=== PATIENT | female | born 1940 | race Caucasian/White ===

== ENCOUNTER → 2016-11-03 | Outpatient (CLI) | payer OTHER ==
[~2016-11-03] MED LIST: ALEN70TA2 PO; AMLO5TAB4 PO; ASPI325T4 PO; CALC-393 PO; CALC600T14 PO; CILO100T PO; CILO100T15 PO; DRGTP12 TD; FISHOIL PO; FURO40TA3 PO; HYDR25TA5 PO; LDDP5 TD; LPR25 PO; LPT40 PO; LSN40 PO; METO50TA17 PO; MULTTAB58 PO; NRV/10 PO; NTRGSL/4 UT; OMEGCAP2 PO; OPTIRAY 320 IV PRN; OXYC-57 PO; POTA-65 PO
--- NOTE | 2016-11-03 10:37 | DIAGNOSTIC IMAGING REPORT ---
ABDOMEN AND PELVIS CTA WITH IV CONTRAST CT DOSE: 312.34 mGy.cm HISTORY: Follow-up of abdominal aortic aneurysm. TECHNIQUE: Multiaxial CT images of the abdomen and pelvis were performed following the use of intravenous contrast. COMPARISON STUDY: Abdomen and pelvis CTA 08/28/2015. FINDINGS: There is again noted an infrarenal abdominal aortic aneurysm. This measures maximal diameter of 4.2 x 4.0 cm. This previous measured 4.0 x 4.0 cm. There is progressive mural thrombosis within the aneurysm sac with decrease in size in the contrast opacified lumen. The lumen currently measures 2.2 x 1.4 cm, previous measuring 2.4 x 2.0 cm. Mild narrowing of the proximal celiac and superior mesenteric arteries. The bilateral renal arteries are patent. The proximal inferior mesenteric artery is occluded. However, there is reconstitution of the inferior mesenteric artery due to collaterals. This remains unchanged. 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 There are evidence for common iliac artery stents. The right proximal superficial femoral artery remains occluded. Multifocal areas of moderate to severe stenosis within the bilateral external iliac arteries and bilateral common femoral arteries has progressed. There is also interval development of high-grade stenosis within the proximal left superficial femoral artery. Emphysema. No acute fractures within the visualized osseous structures. Small fat-containing right-sided Bochdalek hernia. There are 2 subcentimeter hypodense lesions within the right hepatic lobe which are too small to characterize but remain stable. These likely represent cysts. Punctate stone within the gallbladder. The pancreas, spleen, and adrenal glands are unremarkable. No renal stones or hydronephrosis. No retroperitoneal lymphadenopathy. The bladder is unremarkable. No bowel wall thickening or obstruction. IMPRESSION: 1. Slight increase in size in the 4.2 x 4.0 cm infrarenal abdominal aortic aneurysm. There is progressive thrombosis within the aneurysm sac with decrease in size of the contrast opacified lumen as described above. 2. The left common iliac artery aneurysm is not significantly changed. 3. Multifocal areas of moderate to severe stenosis within the bilateral external iliac arteries and bilateral common femoral arteries has progressed. There is also interval development of high-grade stenosis within the proximal left superficial femoral artery. The proximal right superficial femoral artery remains occluded. 4. Cholelithiasis. 5. Emphysema. Electronically signed by: Michael Murillo M.D. 11/03/2016 10:36 AM Dictated Date/Time: 11/03/2016 10:18 AM
== END | disposition home or self-care (01) ==
LOC: C.CTS 09:11
PROVIDERS: ATTEND Surgery
DX: I71.4 Abdominal aortic aneurysm, without rupture (principal); I72.3 Aneurysm of iliac artery; I77.1 Stricture of artery; I70.203 Unspecified atherosclerosis of native arteries of extremities, bilateral legs; K80.20 Calculus of gallbladder without cholecystitis without obstruction; J43.9 Emphysema, unspecified

== ENCOUNTER → 2017-02-02 | Outpatient (CLI) | payer OTHER ==
[~2017-02-02] MED LIST changes: -OPTIRAY 320 IV PRN
--- NOTE | 2017-02-02 13:56 | MAMMOGRAPHY REPORT ---
BILATERAL DIGITAL SCREENING MAMMOGRAM WITH CAD: 02/02/2017 CLINICAL HISTORY: Routine screening. Patient has no complaints. TECHNIQUE: Bilateral CC and MLO views were obtained. Current study was also evaluated with a Compute r Aided Detection (CAD) system. COMPARISON: Comparison is made to exams dated: 01/28/2016 mammogram, 01/22/2015 mammogram, 01/29/2014 ult rasound, 01/29/2014 mammogram, 01/18/2014 mammogram, and 01/16/2013 mammogram - [facility]. BREAST COMPOSITION: The tissue of both breasts is extremely dense, which lowers the sensitivity of m ammography. FINDINGS: The parenchymal pattern is similar to prior mammograms. There are moderate vascular calci fications in the breasts. A few scattered benign coarse calcifications. No developing mass, archite ctural distortion or cluster of suspicious microcalcifications is seen in either breast. IMPRESSION: ACR BI-RADS CATEGORY 2: BENIGN There is no mammographic evidence of malignancy. A 1 year screening mammogram is recommended. The pa tient will receive written notification of the results. Approximately 10% of breast cancers are not detected with mammography. A negative mammographic report should not delay biopsy if a clinically suggestive mass is present. Rashida Franks M.D. ay/:02/02/2017 09:14:32 Assistant News Director: Heather Evans, [facility] letter sent: Normal 1/2 BI-RADS Code: ACR BI-RADS Category 2: Benign
== END | disposition home or self-care (01) ==
LOC: C.MAMM 07:44
PROVIDERS: ATTEND Family Medicine
DX: Z12.31 Encounter for screening mammogram for malignant neoplasm of breast (principal)

== ENCOUNTER 2017-02-15 10:28 | Inpatient (IN) | payer OTHER ==
[~2017-02-15] VITALS: Ht 160 cm; Wt 60.8 kg
[~2017-02-15 10:28] MED LIST changes: -CALC-393 PO; -CILO100T PO; -DRGTP12 TD; -FURO40TA3 PO; -HYDR25TA5 PO; -LDDP5 TD; -LPT40 PO; -LSN40 PO; -METO50TA17 PO; -NRV/10 PO; -OMEGCAP2 PO; -OXYC-57 PO; -POTA-65 PO
[2017-02-15] MEDS ORDERED: HYDR25TA5 PO (11:05)
[2017-02-15] MEDS ORDERED: NRV/10 PO (11:05)
[2017-02-15] MEDS ORDERED: LSN40 PO (11:05)
[2017-02-15] MEDS ORDERED: METO50TA17 PO (11:05)
[2017-02-15] MEDS ORDERED: LPT40 PO (11:05)
[2017-02-15] MEDS ORDERED: OMEGCAP2 PO (11:06)
[2017-02-15] MEDS ORDERED: CALC-393 PO (11:06)
[2017-02-15] MEDS ORDERED: CILO100T PO (11:07)
--- NOTE | 2017-02-15 12:22 | EMERGENCY ROOM VISIT NOTE ---
History Report prepared by Yovany: Diego Batres Under the Supervision of: Dr. Sindy Mccain D.O. First contact with patient: 11:35 Chief Complaint: CARDIAC ASSESSMENT Stated Complaint: BACK PAIN, COULD NOT MOVE Nursing Triage Summary: Woke up this AM with chest pain that radiated to back. Had trouble moving this AM. Stent history. History of Present Illness The patient is a 76 year old female who presents to the Emergency Room with complaints of constant back pain and chest pain that started this morning which is worsened with movement. The patient states that the pain is in her middle back that goes through her body into her heart, and she is having some shortness of breath. The patient states that she felt fine last night, and she has never had a problem like this before or any back troubles. She has a history of a stent placement in the 90s, hypertension, and high cholesterol. She has not seen a bartender server recently, and has not had a recent stress test or echo done. The patient additionally states that she vomited twice this morning, and she was difficult to wake up this morning, per her family. Pt denies recent illness, dizziness, light headedness, numbness, tingling, abdominal pain, leg swelling, headache, change in vision, fevers, diarrhea, pain with urination, and melena. Denies any recent trauma, no change in activity, no heavy lifting, no recent illness. Denies change in meds. Denies any recent chest pain with exertion. Source of History: patient Onset: this morning Position: chest, back Timing: constant Modifying Factors (Worsening): movement Associated Symptoms: + SOB, + vomiting Review of Systems See HPI for pertinent positives & negatives. A total of 10 systems reviewed and were otherwise negative. Past Medical & Surgical Medical Problems: (1) AAA (abdominal aortic aneurysm) (2) CAD (coronary artery disease) (3) Carotid stenosis (4) HLD (hyperlipidemia) (5) HTN (hypertension) (6) PVD (peripheral vascular disease) Surgical Problems: (1) H/O colonoscopy (2) H/O tubal ligation (3) History of heart artery stent (4) Hx of endarterectomy (5) S/P appendectomy Family History Diabetes mellitus FH: heart disease Stroke Social History Smoking Status: Former Smoker Marital Status: Housing Status: lives with significant other Occupation Status: retired Current/Historical Medications Scheduled Alendronate Sodium (Fosamax), 70 MG PO QMON Amlodipine Besylate (Amlodipine Besylate), 10 MG PO DAILY Aspirin (Aspirin), 325 MG PO QAM Atorvastatin (Atorvastatin Calcium), 40 MG PO DAILY Calcium Carbonate (Calcium), 600 MG PO DAILY Cilostazol (Pletal), 100 MG PO BID Hydrochlorothiazide (Hydrochlorothiazide), 25 MG PO DAILY Lisinopril (Lisinopril), 40 MG PO DAILY Metoprolol Tartrate (Metoprolol Tartrate), 50 MG PO BID Multiple Vitamin (Multivitamin), 1 TAB PO QAM Nitroglycerin (Nitrostat), 0.4 MG UT PRN Cameron-3 Fatty Acids (Fish Oil), 1 CAP PO DAILY Allergies Coded Allergies: Antihistamines, Diphenhydramine-typ (Verified Adverse Reaction, Unknown, MAKES HEART RACE, 08/01/15) Physical Exam Vital Signs Date Time Temp Pulse Resp B/P (MAP) Pulse Ox O2 Delivery O2 Flow Rate FiO2 02/15/17 15:17 75 20 160/89 98 Nasal Cannula 3.0 02/15/17 13:41 77 18 143/77 95 Nasal Cannula 2.0 02/15/17 13:09 71 02/15/17 12:45 75 17 149/83 96 Nasal Cannula 2.0 02/15/17 11:35 82 17 142/89 95 Nasal Cannula 2.0 02/15/17 11:04 87 Room Air 02/15/17 11:04 87 Room Air 02/15/17 11:02 94 Nasal Cannula 2.0 02/15/17 10:59 86 02/15/17 10:30 36.5 82 20 148/75 93 Room Air Physical Exam GENERAL: alert, well appearing, well nourished, no distress, non-toxic EYE EXAM: normal conjunctiva, PERRL and EOM's grossly intact OROPHARYNX: no exudate, no erythema, lips, buccal mucosa, and tongue normal and mucous membranes are moist NECK: supple, no nuchal rigidity, no adenopathy, non-tender LUNGS: Clear to auscultation. Normal chest wall mechanics. The patient is on 3L of oxygen per minute on nasal cannula. When turned off, the patient's saturation went to 89% on room air, and the patient felt more short of breath. Lungs sounds diminished, no w/r/r. HEART: no murmurs, S1 normal and S2 normal, no JVD CHEST: Reproducible pain along the lower sternum. ABDOMEN: abdomen soft, non-tender, normo-active bowel sounds, no masses, no rebound or guarding. BACK: Back is symmetrical on inspection and there is no deformity, no midline tenderness, no CVA tenderness. SKIN: no rashes and no bruising UPPER EXTREMITIES: upper extremities are grossly normal. LOWER EXTREMITIES: No pitting edema to right, left AKA. No discoloration, normal cap refill. NEURO EXAM: Normal sensorium, cranial nerves II-XII grossly intact, normal speech, no gross weakness of arms, no gross weakness of legs. Gross sensation intact. Medical Decision & Procedures ER Provider Diagnostic Interpretation: Radiology results have been interpreted by the radiologist and reviewed by me. CT ANGIOGRAPHY OF THE CHEST, PULMONARY EMBOLUS PROTOCOL CLINICAL HISTORY: Chest and back pain. COMPARISON STUDY: Chest radiograph September 12, 2015. TECHNIQUE: Following IV administration of 91 mL of Optiray-320, helical axial images of the chest were obtained utilizing the pulmonary embolus protocol. Maximal intensity projections and sagittal and coronal reformats were viewed on an independent 3D workstation. IV contrast was administered without complication. A dose lowering technique was utilized adhering to the principles of ALARA. CT DOSE: 427.48 mGy.cm FINDINGS: No pulmonary emboli are identified. There is moderate cardiomegaly. There is no pericardial effusion. There is extensive atherosclerotic plaque of the aorta and visualized portions of the upper abdominal vessels. There is no thoracic aortic dissection. No enlarged thoracic nodes are present. Severe emphysema is noted. Note is made of a circumscribed 7 mm right upper lobe nodule shown on image 193 of 318. This may contain fat. Bilateral lower lobe airspace opacity is noted, right greater than left. There is no pneumothorax or pleural effusion. There is a mild T2 compression fracture and a severe T6 compression fracture. There is 5 mm of retropulsion at the T6 level which results in mild to moderate narrowing of the central canal. Visualized portions of the upper abdomen demonstrate trace left perinephric infiltration. IMPRESSION: 1. No pulmonary emboli identified. 2. Bilateral lower lobe airspace opacities, right greater than left. The appearance favors atelectasis although pneumonia could appear similar. 3. Severe emphysema. 4. Circumscribed 7 mm right upper lobe nodule. Possible fat within this lesion raising the possibility of a hamartoma. However, this nodule is indeterminate and a follow-up chest CT in 6 months is recommended to ensure stability. 5. Trace left perinephric infiltration. Correlation with urinalysis is recommended to exclude an infectious process. 6. Severe T6 compression fracture with 5 mm of retropulsion that results in mild to moderate narrowing of the central canal. Mild T8 compression fracture. These fractures are likely subacute to chronic. 7. Moderate cardiomegaly and extensive coronary artery calcification. Electronically signed by: Jimmie Perales M.D. 02/15/2017 3:00 PM Dictated Date/Time: 02/15/2017 2:42 PM Laboratory Results Test 02/15/17 10:55 02/15/17 15:15 Immature Granulocyte % (Auto) 0.7 % White Blood Count 22.53 K/uL (4.8-10.8) Red Blood Count 4.29 M/uL (4.2-5.4) Hemoglobin 13.9 g/dL (12.0-16.0) Hematocrit 36.7 % (37-47) Mean Corpuscular Volume 85.5 fL (80-100) Mean Corpuscular Hemoglobin 32.4 pg (25-34) Mean Corpuscular Hemoglobin Concent 37.9 g/dl (32-36) Platelet Count 260 K/uL (130-400) Mean Platelet Volume 9.9 fL (7.4-10.4) Neutrophils (%) (Auto) 91.3 % Lymphocytes (%) (Auto) 2.9 % Monocytes (%) (Auto) 5.0 % Eosinophils (%) (Auto) 0.0 % Basophils (%) (Auto) 0.1 % Neutrophils # (Auto) 20.57 K/uL (1.4-6.5) Lymphocytes # (Auto) 0.65 K/uL (1.2-3.4) Monocytes # (Auto) 1.13 K/uL (0.11-0.59) Eosinophils # (Auto) 0.00 K/uL (0-0.5) Basophils # (Auto) 0.03 K/uL (0-0.2) Immature Granulocyte # (Auto) 0.15 K/uL (0.00-0.02) Prothrombin Time 11.0 SECONDS (9.0-12.0) Prothromb Time International Ratio 1.0 (0.9-1.1) Osmolality 257 mOsm/kg (280-300) Magnesium Level 1.9 mg/dl (1.8-2.4) Total Bilirubin 0.6 mg/dl (0.2-1) Aspartate Amino Transf (AST/SGOT) 32 U/L (15-37) Alanine Aminotransferase (ALT/SGPT) 35 U/L (12-78) Alkaline Phosphatase 76 U/L (45-117) Pro-B-Type Natriuretic Peptide 210 pg/ml (0-900) Total Protein 8.5 gm/dl (6.4-8.2) Albumin 4.0 gm/dl (3.4-5.0) Globulin 4.5 gm/dl (2.5-4.0) Albumin/Globulin Ratio 0.9 (0.9-2) Urine Color YELLOW Urine Appearance CLEAR (CLEAR) Urine pH 6.0 (4.5-7.5) Urine Specific [place] 1.033 (1.000-1.030) Urine Protein 1+ (NEG) Urine Glucose (UA) 2+ (NEG) Urine Ketones 1+ (NEG) Urine Occult Blood TRACE (NEG) Urine Nitrite NEG (NEG) Urine Bilirubin NEG (NEG) Urine Urobilinogen NEG (NEG) Urine Leukocyte Esterase TRACE (NEG) Urine WBC (Auto) 1-5 /hpf (0-5) Urine RBC (Auto) 0-4 /hpf (0-4) Urine Hyaline Casts (Auto) 1-5 /lpf (0-5) Urine Epithelial Cells (Auto) 20-30 /lpf (0-5) Urine Bacteria (Auto) NEG (NEG) Laboratory results per my review. Medications Administered Medications (Trade) Dose Ordered Sig/Emely Route Start Time Stop Time Status Last Admin Dose Admin Fentanyl Citrate (Fentanyl Inj) 50 mcg NOW STAT IV 02/15/17 12:29 02/15/17 12:30 DC 02/15/17 12:44 50 MCG Sodium Chloride 1,000 ml @ 999 mls/hr Q1H1M STAT IV 02/15/17 13:28 02/15/17 14:28 DC 02/15/17 13:40 999 MLS/HR Fentanyl Citrate (Fentanyl Inj) 50 mcg NOW STAT IV 02/15/17 13:49 02/15/17 13:50 DC 02/15/17 14:14 50 MCG Aspirin/Aluminum/ Magnesium/Ca Carb (Ascriptin Tab) 325 mg NOW STAT PO 02/15/17 15:08 02/15/17 15:09 DC 02/15/17 15:53 325 MG Levofloxacin (Levaquin / D5W) 750 mg NOW ONCE IV 02/15/17 15:15 02/15/17 15:16 DC 02/15/17 15:52 750 MG Sodium Chloride 1,000 ml @ 999 mls/hr Q1H1M STAT IV 02/15/17 15:09 02/15/17 16:09 DC 02/15/17 15:53 999 MLS/HR Ondansetron HCl (Zofran Inj) 4 mg STK-MED ONCE .ROUTE 02/15/17 15:41 02/15/17 15:42 DC 02/15/17 15:53 4 MG Acetaminophen (Tylenol Tab) 650 mg Q4H PRN PO 02/15/17 16:00 03/17/17 15:59 02/15/17 21:03 650 MG ECG Indication: chest pain, back/shoulder pain Rate (beats per minute): 83 Rhythm: normal sinus Findings: PAC (occasional), no acute ischemic change, other (normal intervals) ED Course 1145: The patient was evaluated in room B3. A complete history and physical exam was performed. 1229: Fentanyl Inj 50mcg IV 1328: Sodium Chloride 1000 ml @ 999 mls/hr IV 1349: Fentanyl Inj 50mcg IV 1508: Aspirin Tab 325mg PO 1509: Sodium Chloride 1000 ml @ 999 mls/hr IV 1513: I reevaluated the patient, and she is now vomiting. She is agreeable to the treatment plan. I ordered Zofran 8mg IV 1515: Levofloxacin 750mg IV 1530: I reviewed the patient's case with Krystle Steen PA-C. She will evaluate the patient for further management. Medical Decision Differential diagnosis: Etiologies such as cardiac ischemia, aortic dissection, pulmonary embolism, pneumonia, pneumothorax, musculoskeletal, infections, pericarditis, myocarditis , esophageal rupture, gastrointestinal, as well as others were entertained. Pt found to have hypoxia on initial bedside exam despite no complaints of SOB or ALEXANDER during interview. Pain worse with movement, no hx of trauma or similar episode previously. Pt sent to CT to r/o PE and thoracic dissection given hypoxia, nature of pain, hx of smoking/PAD. Found to have pneumonia and compression fx which are not acute in thoracic spine, both of which may explain pain and the pneumonia would explain hypoxia and leukocytosis as well as family noticing increased fatigue this am. On repeat exam pt again denied noticing and recent cough or URI sx, but is a former smoker with significant pack year hx. No home oxygen or nebs, or chronic steroids. Blood cultures ordered after leukocytosis noted, UA/C&S was pending also. After CTA chest, levaquin ordered to cover for pneumonia. Pt with nausea/dry heaving following administration of pain meds, denied abdominal pain. No evidence of neoplastic process on CT and no other risk factors for legionella, however discussed this with admitting clinician given hyponatremia. No significant renal impairment, possible related to infectious etiology, however given hx additional etiologies will need to be excluded. EKG without acute changes, at this time I feel elevated troponin more likely due to infectious etiology, asa given as a precaution, and pt will need serial enzymes and possible cardiology evaluation depending on condition and labs. Pt with hx of CAD and stent, no more recent cards evaluation, at risk for ACS. Pt on asa and pletal due to hx of PVD/PAD. Doubt acute gi pathology given lack of other findings and reassuring labs, doubt atypical biliary colic. Medication Reconcilliation Current Medication List: was personally reviewed by me Blood Pressure Screening Patient's blood pressure: Elevated blood pressure Blood pressure disposition: Referred to PCP Consults Time Called: 1520 Consulting Physician: Krystle Steen PA-C Returned Call: 1530 I reviewed the patient's case with Krystle Steen PA-C. She will evaluate the patient for further management. Impression Primary Impression: Pneumonia Additional Impressions: Elevated troponin Substernal chest pain Hyponatremia HTN (hypertension) Back pain Scribe Attestation The scribe's documentation has been prepared under my direction and personally reviewed by me in its entirety. I confirm that the note above accurately reflects all work, treatment, procedures, and medical decision making performed by me. Departure Information Dispostion Being Evaluated By Hospitalist Arturo Hernandez M.D. (PCP) Patient Instructions My [facility] Problem Qualifiers Primary Impression: Pneumonia Pneumonia type: due to unspecified organism Laterality: bilateral Lung location: lower lobe of lung Qualified Codes: J18.9 - Pneumonia, unspecified organism Additional Impressions: HTN (hypertension) Hypertension type: essential hypertension Qualified Codes: I10 - Essential ( primary) hypertension Back pain Back pain location: thoracic back pain Chronicity: acute Back pain laterality: midline Qualified Codes: M54.6 - Pain in thoracic spine
[2017-02-15] MEDS ORDERED: FENTANYL CITRATE INJ 50 MCG/1 ML 2 ML VIAL IV STA ×2 (12:29→13:49)
[2017-02-15] MEDS ORDERED: OPTIRAY 320 IV PRN (12:45)
[2017-02-15 13:14] LABS: HEMATOCRIT 36.7 % (37-47); MEAN CELL VOLUME 85.5 fL (80-100); MEAN CORPUSCULAR HEMOGLOBIN 32.4 pg (25-34); MEAN CORPUSCULAR HGB CONC 37.9 g/dl (32-36); MEAN PLATELET VOLUME 9.9 fL (7.4-10.4); PLATELET COUNT 260 K/uL (130-400); RED BLOOD COUNT 4.29 M/uL (4.2-5.4); WHITE BLOOD COUNT 22.53 K/uL (4.8-10.8)
[2017-02-15 13:22] LABS: BUN/CREATININE RATIO 15.6 (10-20); CALCIUM 8.4 mg/dl (8.5-10.1); CREATININE 0.62 mg/dl (0.60-1.20); POTASSIUM 3.2 mmol/L (3.5-5.1)
[2017-02-15] MEDS ORDERED: SODIUM CHLORIDE 0.9% 1000ML 1,000 ML IV STA ×2 (13:28→15:09)
[2017-02-15 13:37] LABS: ALB/GLOB RATIO 0.9 (0.9-2)
[2017-02-15 13:59] LABS: BASO % 0.1 %; BASO ABS # 0.03 K/uL (0-0.2); COMPLETE YES; IG% 0.7 %; LYMPH % 2.9 %; LYMPH ABS # 0.65 K/uL (1.2-3.4); NEUT % 91.3 %
--- NOTE | 2017-02-15 15:01 | DIAGNOSTIC IMAGING REPORT ---
CT ANGIOGRAPHY OF THE CHEST, PULMONARY EMBOLUS PROTOCOL CLINICAL HISTORY: Chest and back pain. COMPARISON STUDY: Chest radiograph September 12, 2015. TECHNIQUE: Following IV administration of 91 mL of Optiray-320, helical axial images of the chest were obtained utilizing the pulmonary embolus protocol. Maximal intensity projections and sagittal and coronal reformats were viewed on an independent 3D workstation. IV contrast was administered without complication. A dose lowering technique was utilized adhering to the principles of ALARA. CT DOSE: 427.48 mGy.cm FINDINGS: No pulmonary emboli are identified. There is moderate cardiomegaly. There is no pericardial effusion. There is extensive atherosclerotic plaque of the aorta and visualized portions of the upper abdominal vessels. There is no thoracic aortic dissection. No enlarged thoracic nodes are present. Severe emphysema is noted. Note is made of a circumscribed 7 mm right upper lobe nodule shown on image 193 of 318. This may contain fat. Bilateral lower lobe airspace opacity is noted, right greater than left. There is no pneumothorax or pleural effusion. There is a mild T2 compression fracture and a severe T6 compression fracture. There is 5 mm of retropulsion at the T6 level which results in mild to moderate narrowing of the central canal. Visualized portions of the upper abdomen demonstrate trace left perinephric infiltration. IMPRESSION: 1. No pulmonary emboli identified. 2. Bilateral lower lobe airspace opacities, right greater than left. The appearance favors atelectasis although pneumonia could appear similar. 3. Severe emphysema. 4. Circumscribed 7 mm right upper lobe nodule. Possible fat within this lesion raising the possibility of a hamartoma. However, this nodule is indeterminate and a follow-up chest CT in 6 months is recommended to ensure stability. 5. Trace left perinephric infiltration. Correlation with urinalysis is recommended to exclude an infectious process. 6. Severe T6 compression fracture with 5 mm of retropulsion that results in mild to moderate narrowing of the central canal. Mild T8 compression fracture. These fractures are likely subacute to chronic. 7. Moderate cardiomegaly and extensive coronary artery calcification. Electronically signed by: Jimmie Perales M.D. 02/15/2017 3:00 PM Dictated Date/Time: 02/15/2017 2:42 PM
[2017-02-15] MEDS ORDERED: ASPIRIN/ALUM/MAGNES/CAL CARB 325 MG TAB PO STA (15:08)
[2017-02-15] MEDS ORDERED: ONDANSETRON 8 MG/54 ML D5W IV STA (15:13)
[2017-02-15] MEDS ORDERED: LEVAQUIN 750MG / 150ML D5W IV ONE (15:15)
[2017-02-15] MEDS ORDERED: ONDANSETRON INJ 2 MG/ML 2 ML VIAL ONE (15:41)
[2017-02-15] MEDS ORDERED: POTASSIUM CHLR IV STA (15:43)
[2017-02-15] MEDS ORDERED: PREMIXED WATER IV STA (15:43)
[2017-02-15] MEDS ORDERED: WTR IV STA (15:43)
[2017-02-15 15:51] LABS: URINE APPEARANCE CLEAR (CLEAR); URINE BILIRUBIN NEG (NEG); URINE COLOR YELLOW; URINE EPITHELIAL CELL AUTO 20-30 /lpf (0-5); URINE NITRITE NEG (NEG); URINE SPECIFIC GRAVITY 1.033 (1.000-1.030); UROBILINOGEN NEG (NEG); ZZUR CULT IF INDIC CLEAN CATCH NO
[2017-02-15 15:53] LABS: MANUAL MICROSCOPIC REQUIRED? NO; REVIEW REQ? NO
[2017-02-15] MEDS ORDERED: NITROGLYCERIN 0.4 MG SL PER TAB CHARGE SL PRN (16:00)
[2017-02-15] MEDS ORDERED: ALUMINUM/MAGNESIUM/SIMETH (MAALOX MAX) 30 ML UDC PO PRN (16:00)
[2017-02-15] MEDS ORDERED: POLYETHYLENE (MIRALAX) 17 GM PACK PO PRN (16:00)
[2017-02-15] MEDS ORDERED: MAGNESIUM HYDROXIDE SUSP 30 ML UDC PO PRN (16:00)
[2017-02-15 16:26] VITALS: Ht 160 cm; Wt 60.8 kg
--- NOTE | 2017-02-15 17:03 | History and Physical ---
History & Physical Date & Time of Service: Feb 15, 2017 at 17:03 Chief Complaint: Back Pain, Could Not Move Primary Care Physician: Arturo Bermudez M.D. History of Present Illness Source: patient, family This is a 76yo female with a PMH of CAD (s/p stent in ), HTN, HLD, AAA ( without rupture), carotid stenosis, PVD (s/p L AKA in 09/10) and osteoporosis who presents with back and chest pain since this morning. Patient was in a normal state of health until waking up this morning with 8/10 constant mid-back pain that she describes as heavy and made worse with movement. Denies any associated paresthesias or weakness of LE. Has not had back pain in the past. Describes mid-sternal chest pain as dull, constant and non-radiating. States that it is a 6/10 in severity. Has a remote history of chest pain but has not experienced pain similar to this since a stent was placed in the . States that she used to see a leather goods maker for management of CAD, HTN, HLD and AAA but they have since moved and she has not been regularly seeing anyone. Does not remember a recent stress test or echo. Along with back pain and chest pain today, patient also endorses two episodes of vomiting and feeling confused. Family agrees that patient is not mentating at baseline, having difficulty remembering details of events leading up to hospitalization today. Denies fever, chills, headache, vision changes, dyspnea, SOB, nausea, abdominal pain, dysuria, diarrhea, MSK pain, swelling or weakness in extremities. Past Medical/Surgical History Medical Problems: (1) AAA (abdominal aortic aneurysm) Status: Chronic (2) Carotid stenosis Status: Chronic (3) Chronic ischemic heart disease Status: Chronic (4) HLD (hyperlipidemia) Status: Chronic (5) HTN (hypertension) Status: Chronic (6) LLE stent Status: Chronic Surgical Problems: (1) H/O colonoscopy Permanent Comment: adenomatous & TVA polyps, diverticulosis, repeat 3 yrs 2014 Status: Chronic (2) H/O tubal ligation Status: Chronic (3) History of heart artery stent Permanent Comment: 1997 Status: Chronic (4) S/P appendectomy Status: Chronic Family History Diabetes mellitus FH: heart disease Stroke Social History Smoking Status: Former Smoker Marital Status: Occupational Status: retired Multi-Drug Resistant Organisms History of MDRO: No Allergies Coded Allergies: Antihistamines, Diphenhydramine-typ (Verified Adverse Reaction, Unknown, MAKES HEART RACE, 08/01/15) Home Medications Scheduled Alendronate Sodium (Fosamax), 70 MG PO QMON Amlodipine Besylate (Amlodipine Besylate), 10 MG PO DAILY Aspirin (Aspirin), 325 MG PO QAM Atorvastatin (Atorvastatin Calcium), 40 MG PO DAILY Calcium Carbonate (Calcium), 600 MG PO DAILY Cilostazol (Pletal), 100 MG PO BID Hydrochlorothiazide (Hydrochlorothiazide), 25 MG PO DAILY Lisinopril (Lisinopril), 40 MG PO DAILY Metoprolol Tartrate (Metoprolol Tartrate), 50 MG PO BID Multiple Vitamin (Multivitamin), 1 TAB PO QAM Nitroglycerin (Nitrostat), 0.4 MG UT PRN [place]-3 Fatty Acids (Fish Oil), 1 CAP PO DAILY Review of Systems Ten systems reviewed and negative except as noted in the HPI. Physical Exam Vital Signs Date Time Temp Pulse Resp B/P (MAP) Pulse Ox O2 Delivery O2 Flow Rate FiO2 02/15/17 16:26 Room Air 02/15/17 15:17 75 20 160/89 98 Nasal Cannula 3.0 02/15/17 13:41 77 18 143/77 95 Nasal Cannula 2.0 02/15/17 13:09 71 02/15/17 12:45 75 17 149/83 96 Nasal Cannula 2.0 02/15/17 11:35 82 17 142/89 95 Nasal Cannula 2.0 02/15/17 11:04 87 Room Air 02/15/17 11:04 87 Room Air 02/15/17 11:02 94 Nasal Cannula 2.0 02/15/17 10:59 86 02/15/17 10:30 36.5 82 20 148/75 93 Room Air General Appearance: + mild distress Head: normocephalic, atraumatic Eyes: normal inspection, PERRL, sclerae normal ENT: hearing grossly normal Respiratory/Chest: chest non-tender, no respiratory distress, no accessory muscle use, + decreased breath sounds (2/2 reduced inspiratory effort ) Cardiovascular: regular rate, rhythm, no JVD, no murmur, + abnormal peripheral pulses (diminished R pedal pulse ) Abdomen/GI: normal bowel sounds, non tender, soft, no organomegaly Back: normal inspection, + pertinent finding (TTP of thoracic spine. Reduced ROM 2/2 pain) Extremities/Musculoskelatal: normal inspection (AKA of L leg ), no calf tenderness, normal capillary refill, no pedal edema Neurologic/Psych: no motor/sensory deficits, alert (oriented to person, place and situation. Not oriented to time.), normal mood/affect Skin: normal color, warm/dry, no rash Diagnostics Laboratory Results Results Past 24 Hours Test 02/15/17 10:55 02/15/17 15:15 02/15/17 15:39 Range/Units White Blood Count 22.53 4.8-10.8 K/uL Red Blood Count 4.29 4.2-5.4 M/uL Hemoglobin 13.9 12.0-16.0 g/dL Hematocrit 36.7 37-47 % Mean Corpuscular Volume 85.5 80-100 fL Mean Corpuscular Hemoglobin 32.4 25-34 pg Mean Corpuscular Hemoglobin Concent 37.9 32-36 g/dl Platelet Count 260 130-400 K/uL Mean Platelet Volume 9.9 7.4-10.4 fL Neutrophils (%) (Auto) 91.3 % Lymphocytes (%) (Auto) 2.9 % Monocytes (%) (Auto) 5.0 % Eosinophils (%) (Auto) 0.0 % Basophils (%) (Auto) 0.1 % Neutrophils # (Auto) 20.57 1.4-6.5 K/uL Lymphocytes # (Auto) 0.65 1.2-3.4 K/uL Monocytes # (Auto) 1.13 0.11-0.59 K/uL Eosinophils # (Auto) 0.00 0-0.5 K/uL Basophils # (Auto) 0.03 0-0.2 K/uL RDW Standard Deviation 38.6 36.4-46.3 fL RDW Coefficient of Variation 12.5 11.5-14.5 % Immature Granulocyte % (Auto) 0.7 % Immature Granulocyte # (Auto) 0.15 0.00-0.02 K/uL Prothrombin Time 11.0 9.0-12.0 SECONDS Prothromb Time International Ratio 1.0 0.9-1.1 Sodium Level 122 136-145 mmol/L Potassium Level 3.2 3.5-5.1 mmol/L Chloride Level 89 98-107 mmol/L Carbon Dioxide Level 22 21-32 mmol/L Anion Gap 11.0 3-11 mmol/L Blood Urea Nitrogen 10 7-18 mg/dl Creatinine 0.62 0.60-1.20 mg/dl Est Creatinine Clear Calc Drug Dose 64.8 ml/min Estimated GFR () 102.2 Estimated GFR (Non- 88.2 BUN/Creatinine Ratio 15.6 10-20 Random Glucose 183 70-99 mg/dl Osmolality 257 280-300 mOsm/kg Calcium Level 8.4 8.5-10.1 mg/dl Magnesium Level 1.9 1.8-2.4 mg/dl Total Bilirubin 0.6 0.2-1 mg/dl Aspartate Amino Transf (AST/SGOT) 32 15-37 U/L Alanine Aminotransferase (ALT/SGPT) 35 12-78 U/L Alkaline Phosphatase 76 45-117 U/L Troponin I 0.146 0-0.045 ng/ml Pro-B-Type Natriuretic Peptide 210 0-900 pg/ml Total Protein 8.5 6.4-8.2 gm/dl Albumin 4.0 3.4-5.0 gm/dl Globulin 4.5 2.5-4.0 gm/dl Albumin/Globulin Ratio 0.9 0.9-2 Urine Color YELLOW Urine Appearance CLEAR CLEAR Urine pH 6.0 4.5-7.5 Urine Specific [place] 1.033 1.000-1.030 Urine Protein 1+ NEG Urine Glucose (UA) 2+ NEG Urine Ketones 1+ NEG Urine Occult Blood TRACE NEG Urine Nitrite NEG NEG Urine Bilirubin NEG NEG Urine Urobilinogen NEG NEG Urine Leukocyte Esterase TRACE NEG Urine WBC (Auto) 1-5 0-5 /hpf Urine RBC (Auto) 0-4 0-4 /hpf Urine Hyaline Casts (Auto) 1-5 0-5 /lpf Urine Epithelial Cells (Auto) 20-30 0-5 /lpf Urine Bacteria (Auto) NEG NEG Microbiology Results 02/15/17 Blood Culture, Received Pending 02/15/17 Blood Culture, Received Pending Diagnostic Radiology CT Chest/Thorax: IMPRESSION: 1. No pulmonary emboli identified. 2. Bilateral lower lobe airspace opacities, right greater than left. The appearance favors atelectasis although pneumonia could appear similar. 3. Severe emphysema. 4. Circumscribed 7 mm right upper lobe nodule. Possible fat within this lesion raising the possibility of a hamartoma. However, this nodule is indeterminate and a follow-up chest CT in 6 months is recommended to ensure stability. 5. Trace left perinephric infiltration. Correlation with urinalysis is recommended to exclude an infectious process. 6. Severe T6 compression fracture with 5 mm of retropulsion that results in mild to moderate narrowing of the central canal. Mild T8 compression fracture. These fractures are likely subacute to chronic. 7. Moderate cardiomegaly and extensive coronary artery calcification. EKG Sinus rhythm with Premature supraventricular complexes Nonspecific ST and T wave abnormality Impression Assessment and Plan This is a 76yo female with a PMH of CAD (s/p stent in ), HTN, HLD, AAA ( without rupture), carotid stenosis, PVD (s/p L AKA in 09/10) and osteoporosis who presents with back and chest pain since this morning. PNA: -Chest thorax CTA with bilateral lower lobe airspace opacities, right greater than left. The appearance favors atelectasis although pneumonia could appear similar -No pulmonary emboli identified -Leukocytosis of 22.53 -Endorses CP. Denies SOB, fever, chills -Not on home O2, but became hypoxic at 87% on room air. Satting 98% on 3L NC -Started on Levoquin Back pain: -No history of back pain -Chest thorax CTA with sub-acute to chronic compression fractures: -Severe T6 compression fracture with retropulsion that results in mild to mod narrowing of the central canal -Mild T8 compression fracture. -History of osteoporosis. On alendronate, calcium -Lidoderm patch for pain control Chest pain: -Constant dull mid-sternal pain since AM -CAD with stent placed in . Does not follow regularly with leather goods maker -R/o ACS; risk factors include HTN, HLD, former smoker, sedentary -EKG- Sinus rhythm with PVCs. Non-specific ST and T wave abnormalities. Unchanged since previous EKG. -Initial troponin elevated to 0.146 -Trend serial cardiac enzymes -Given ASA in ED -Ordered echo -Repeat EKG in AM Metabolic encephalopathy: -Per patient and family, patient has been confused since this AM -Is oriented to person and place but not time -Likely due to hyponatremia and infection -No neuro deficits on exam -Will continue monitoring Hypotonic hyponatremia: -Confusion, nausea & vomiting -Na of 122 on admission -Serum osm low at 267 -Urine osm pending -Repeat NA pending -Held HCTZ Electrolyte abnormalities: -K of 2.2 -Replaced K and Mg -Will continue monitoring HTN: -Stable -Continue metoprolol and lisinopril -Held HCTZ in setting of hyponatremia HLD: -Continue atorvastatin PVD (s/p L AKA in 09/10): -Follows with Dr. Alexandre with vascular surgery -Continue Pletal BID -Denies intermittent claudication but also does not ambulate with prosthetic. Uses wheelchair Carotid stenosis: -Stable -Continue following with PCP and out-pt cardio DVT Ppx: Heparin SQ Code status: FULL PCP: Lara Dispo: Discharge planning ordered ADDENDUM: Saw/examined the patient in room 229-2 Patient states she woke up with severe back pain Presented to the ER; found to have leukocytosis, elevated troponin level, hyponatremia - likely secondary to pneumonia Plan is to give Levaquin for the pneumonia Was given 2L fluid bolus in the ER; check urine, serum Osm, and urine Na repeat Na monitor in tele trend cardiac enzymes, check echo replace K, check Mg For back pain, add Lidoderm patch due to compression fracture, may need ortho input once more medically stable Level of Care Telemetry Advanced Directives Existing Living Will: No Existing Power of Envelope Cutter: No Resuscitation Status FULL RESUSCITATION VTE Prophylaxis VTE Risk Assessment Done? Y/N: Yes Risk Level: Moderate Given or contraindicated: Unfractionated heparin SQ
[2017-02-15 18:36] VITALS: BP 149/74; PULSE 84; TEMP 36.9; O2SAT 90
[2017-02-15 19:10] VITALS: BP 152/75; PULSE 82; TEMP 36.8; O2SAT 92
[2017-02-15 19:28] LABS: BUN/CREATININE RATIO 11.9 (10-20); CALCIUM 8.3 mg/dl (8.5-10.1); CREATININE 0.48 mg/dl (0.60-1.20); POTASSIUM 3.3 mmol/L (3.5-5.1)
[2017-02-15] MEDS: POTASSIUM CHLR 10MEQ / WTR IV SCH ×3 (19:43→22:12)
[2017-02-15 19:50] LABS: HEMATOCRIT 36.4 % (37-47); MEAN CELL VOLUME 84.7 fL (80-100); MEAN CORPUSCULAR HEMOGLOBIN 31.9 pg (25-34); MEAN CORPUSCULAR HGB CONC 37.6 g/dl (32-36); MEAN PLATELET VOLUME 9.1 fL (7.4-10.4); PLATELET COUNT 241 K/uL (130-400); WHITE BLOOD COUNT 15.39 K/uL (4.8-10.8)
[2017-02-15] MEDS: LIDODERM (LIDOCAINE) PATCH 5% TD SCH (19:58)
[2017-02-15 20:00] VITALS: O2SAT 92
[2017-02-15] MEDS: ACETAMINOPHEN 325 MG TAB PO PRN (21:03)
[2017-02-15] MEDS ORDERED: NSS + 20MEQ KCL 1000ML 1,000 ML IV ONE (21:15)
[2017-02-15] MEDS: METOPROLOL TARTRATE 50 MG TAB PO SCH (21:26)
[2017-02-15] MEDS: CILOSTAZOL 100 MG TAB PO SCH (21:26)
[2017-02-15] MEDS: HEPARIN SOD 5000 UNIT/0.5 ML CARP SQ SCH (21:32)
[2017-02-15 22:50] LABS: CKMB/CK RATIO 1.6 (0-3.0)
[2017-02-16] VITALS (7 sets, daily range): BP systolic 124–158; BP diastolic 63–79; PULSE 72–86; TEMP 36.6–37; O2SAT 92–97
[2017-02-16 06:18] LABS: HEMATOCRIT 36.2 % (37-47); MEAN CORPUSCULAR HEMOGLOBIN 32.2 pg (25-34); MEAN CORPUSCULAR HGB CONC 37.8 g/dl (32-36); MEAN PLATELET VOLUME 9.1 fL (7.4-10.4); PLATELET COUNT 233 K/uL (130-400); RED BLOOD COUNT 4.26 M/uL (4.2-5.4); WHITE BLOOD COUNT 16.76 K/uL (4.8-10.8)
[2017-02-16 07:02] LABS: ESTIMATED AVERAGE GLUCOSE 126 mg/dl; HA1C FLAG Normal (Normal)
[2017-02-16 07:05] LABS: BUN/CREATININE RATIO 6.6 (10-20); CALCIUM 8.5 mg/dl (8.5-10.1); CREATININE 0.62 mg/dl (0.60-1.20); MAGNESIUM 1.6 mg/dl (1.8-2.4); POTASSIUM 3.4 mmol/L (3.5-5.1)
[2017-02-16 07:13] LABS: CKMB/CK RATIO 1.5 (0-3.0)
[2017-02-16 07:15] LABS: BASO % 0.1 %; BASO ABS # 0.02 K/uL (0-0.2); COMPLETE YES; IG% 0.4 %; LYMPH % 9.5 %; LYMPH ABS # 1.59 K/uL (1.2-3.4); MONO % 3.7 %; NEUT % 86.3 %
[2017-02-16] MEDS ORDERED: MAGNESIUM SULFATE 1GM / D5W 1 GM in PREMIXED IN D5W 100 ML IV STA (07:56)
[2017-02-16] MEDS: POTASSIUM CHLORIDE 10 MEQ TABCR PO SCH (08:19)
[2017-02-16] MEDS: METOPROLOL TARTRATE 50 MG TAB PO SCH ×2 (08:20→20:42)
[2017-02-16] MEDS: ATORVASTATIN 40 MG TAB PO SCH (08:20)
[2017-02-16] MEDS: CILOSTAZOL 100 MG TAB PO SCH ×2 (08:20→20:42)
[2017-02-16] MEDS: LISINOPRIL 40 MG TAB PO SCH (08:20)
[2017-02-16] MEDS: ASPIRIN 325 MG ECTAB PO SCH (08:20)
--- NOTE | 2017-02-16 08:21 | ECHOCARDIOGRAM REPORT ---
*NOTICE TO RECEIVING DEMOCRAT AGENCY This information is strictly Confidential and protected under [place] law. [place] law prohibits you from making any further disclosure of this information unless further disclosure is expressly permitted by the written consent of the person to whom it pertains or is authorized by law. A general authorization for the release of medical or other information is not sufficient for this purpose. Hospital accepts no responsibility if the information is made available to any other person, INCLUDING THE PATIENT. Interpretation Summary * Name: PONCHO DOLAN Study Date: 02/16/2017 06:57 AM BP: 148/72 mmHg * Patient Location: C.2T\S\S229\S\2 HR: 77 * : 1940 (M/d/yyy) Gender: Female Height: 63 in * Age: 76 yrs Ethnicity: [place] Weight: 131 lb * Ordering Physician: Omayra Cisse * Referring Physician: Self, Referred * Performed By: Alana Crooks RDCS * * Reason For Study: CHEST PAIN * BSA: 1.6 m2 * The study was technically adequate. * There is no comparison study available. * -- Conclusions -- * The left ventricle is hyperdynamic. * Ejection Fraction = >70 %. * There is mild concentric left ventricular hypertrophy. * The left ventricular wall motion is normal. * Grade I diastolic dysfunction, (abnormal relaxation pattern). * There is mild mitral annular calcification. * There is mild mitral regurgitation. * Aortic valve sclerosis moderate, without significant aortic valvular stenosis. * There is mild tricuspid regurgitation. * The estimated systolic PAP is 43mmHg. Procedure Details * A complete two-dimensional transthoracic echocardiogram was performed (2D, M-mode, Doppler and color flow Doppler). Left Ventricle * The left ventricle is normal in size. * There is mild concentric left ventricular hypertrophy. * The basal septum is thickened and angulated consistent with sigmoid septum. * Ejection Fraction = >70 %. * The left ventricle is hyperdynamic. * The left ventricular wall motion is normal. Right Ventricle * The right ventricle is normal size. * The right ventricular systolic function is normal as assessed by tricuspid annular plane systolic excursion (TAPSE) (normal >1.5 cm). Atria * The left atrial size is normal. * Right atrial size is normal. * There is no evidence of atrial septal defect, but resolution does not allow assessment for a patent foramen ovale. Mitral Valve * There is mild mitral annular calcification. * There is no mitral valve stenosis. * There is mild mitral regurgitation. Tricuspid Valve * The tricuspid valve is normal. * There is no tricuspid stenosis. * There is mild tricuspid regurgitation. * The estimated systolic PAP is 43mmHg. Aortic Valve * The aortic valve is trileaflet. * Aortic valve sclerosis moderate, without significant aortic valvular stenosis. * Aortic stenosis is absent. * There is no significant aortic regurgitation. Pulmonic Valve * The pulmonary valve is not well seen, but the Doppler examination is normal without significant regurgitation or stenosis. Great Vessels * The aortic root is normal size. Pericardium/Pleural * There is no pericardial effusion. Great Vessels * Normal inferior vena cava diameter and respiratory variation suggests normal central venous pressure. Left Ventricular Diastolic Function * Grade I diastolic dysfunction, (abnormal relaxation pattern). MMode 2D Measurements and Calculations IVSd 1.3 cm IVSs 2.1 cm LVIDd 3.8 cm LVIDs 2.1 cm LVPWd 1.4 cm LVPWs 1.7 cm IVS/LVPW 0.93 FS 45.0 % EDV(Teich) 60.4 ml ESV(Teich) 13.9 ml EF(Teich) 77.0 % EDV(cubed) 53.1 ml ESV(cubed) 8.8 ml EF(cubed) 83.3 % % IVS thick 55.0 % % LVPW thick 17.1 % LV mass(C)d 190.2 grams LV mass(C)dI 117.7 grams/m\S\2 LV mass(C)s 159.4 grams LV mass(C)sI 98.7 grams/m\S\2 SV(Teich) 46.5 ml SI(Teich) 28.8 ml/m\S\2 SV(cubed) 44.3 ml SI(cubed) 27.4 ml/m\S\2 Ao root diam 3.5 cm Ao root area 9.8 cm\S\2 LVAd ap4 23.6 cm\S\2 LVLd ap4 7.4 cm EDV(MOD-sp4) 60.6 ml EDV(sp4-el) 64.2 ml LVAs ap4 12.4 cm\S\2 LVLs ap4 6.3 cm ESV(MOD-sp4) 21.6 ml ESV(sp4-el) 20.7 ml EF(MOD-sp4) 64.4 % EF(sp4-el) 67.8 % LVAd ap2 21.4 cm\S\2 LVLd ap2 7.7 cm EDV(MOD-sp2) 49.2 ml EDV(sp2-el) 50.7 ml LVAs ap2 10.6 cm\S\2 LVLs ap2 6.0 cm ESV(MOD-sp2) 17.4 ml ESV(sp2-el) 15.9 ml EF(MOD-sp2) 64.6 % EF(sp2-el) 68.6 % LVLd %diff 3.7 % EDV(MOD-bp) 55.5 ml LVLs %diff -4.16 % ESV(MOD-bp) 19.3 ml EF(MOD-bp) 65.1 % SV(MOD-sp4) 39.0 ml SI(MOD-sp4) 24.2 ml/m\S\2 SV(MOD-sp2) 31.8 ml SI(MOD-sp2) 19.7 ml/m\S\2 SV(MOD-bp) 36.1 ml SI(MOD-bp) 22.4 ml/m\S\2 SV(sp4-el) 43.5 ml SI(sp4-el) 26.9 ml/m\S\2 SV(sp2-el) 34.8 ml SI(sp2-el) 21.5 ml/m\S\2 Doppler Measurements and Calculations MV E max kenny 69.6 cm/sec MV A max kenny 80.5 cm/sec MV E/A 0.87 MV dec time 0.24 sec Ao V2 max 188.7 cm/sec Ao max PG 14.2 mmHg Ao max PG (full) 8.4 mmHg LV V1 max PG 5.8 mmHg LV V1 max 120.9 cm/sec TR max kenny 298.6 cm/sec
[2017-02-16] MEDS: HEPARIN SOD 5000 UNIT/0.5 ML CARP SQ SCH ×2 (08:22→20:47)
[2017-02-16] MEDS: SODIUM CHLORIDE 0.9% 1000ML 1,000 ML IV SCH ×2 (08:27→20:48)
--- NOTE | 2017-02-16 09:13 | DIAGNOSTIC IMAGING REPORT ---
TWO VIEW CHEST CLINICAL HISTORY: Atypical chest pain. FINDINGS: AP and lateral chest radiographs are compared to study dated 09/12/2015 and correlated with chest CT dated 02/15/2017. The heart is mildly enlarged and there is atherosclerotic calcification of the thoracic aorta. The pulmonary vasculature is noncongested. Advanced emphysema and chronic interstitial thickening is similar to previous. Bibasilar airspace opacities are unchanged. There is no significant pleural effusion or pneumothorax. The skeletal structures are osteopenic. The bony thorax appears intact. IMPRESSION: 1. Cardiomegaly and emphysema. There is no radiographic evidence of congestive failure. 2. Bibasilar airspace opacities are similar to yesterday. This could represent atelectasis versus an infectious/inflammatory pneumonitis. Clinical correlation will be required. Electronically signed by: Conor White M.D. 02/16/2017 9:11 AM Dictated Date/Time: 02/16/2017 9:07 AM
[2017-02-16] MEDS: POTASSIUM CHLR 10 MEQ / WTR 10 MEQ in PREMIXED WATER 100 ML IV SCH ×2 (09:33→10:49)
--- NOTE | 2017-02-16 09:47 | Clinical Documentation Query ---
CLINICAL DOCUMENTATION QUERY In your clinical opinion is this patient being managed for: ( ) NSTEMI, POA ( X ) Other explanation of clinical findings (Please Explain); type II, demand ischemia ( ) Unable to determine (Please Define) ( ) Need to Discuss ( ) Not Agree The medical record reflects the following clinical findings, treatment, and risk factors. Clinical Indicators: Chest pain, SOB relieved with O2, vomiting, elevated troponin levels (0.146, 0.373, 0.520), nonspecific ST wave abnormalities on ECG Treatment: Telemetry, O2 @ 3L, serial cardiac enzymes, echo, cardiology consult, nitroglycerin PRN Risk Factors: Age, HTN, PAD, PNA, Carotid stenosis Please clarify and document your clinical opinion in the progress notes and discharge summary. Terms such as "probable", "suspected", "likely", "questionable", "possible", or "still to be ruled out" are acceptable. IF IN AGREEMENT, YOU MUST DOCUMENT ABOVE DIAGNOSTIC STATEMENT IN DAILY PROGRESS NOTES AND DISCHARGE SUMMARY. This document is not part of the patient's record. Thank You, Karina Quigley RN [phone]
[2017-02-16] MEDS: LIDODERM (LIDOCAINE) PATCH 5% TD SCH (11:18)
--- NOTE | 2017-02-16 12:16 | Progress Note ---
Subjective Date of Service: Feb 16, 2017. Subjective Pt evaluation today including: conversation w/ patient, conversation w/ family , physical exam, lab review, review of studies, review of inpatient medication list Saw/examined the patient in room 229 Doing better than yesterday, states she does not recall much from yesterday, seems to be more alert/awake currently Denies chest pain or shortness of breath No fevers/chills Back pain persists, but improving Problem List Medical Problems: (1) Elevated troponin Status: Acute (2) Hyponatremia Status: Acute (3) Pneumonia Status: Acute (4) Substernal chest pain Status: Acute Review of Systems Constitutional: + weakness, No fever, No chills Respiratory: No cough, No sputum, No wheezing, No shortness of breath, No dyspnea on exertion, No dyspnea at rest, No hemoptysis Cardiac: No chest pain, No palpitations Musculoskeletal: + joint pain (back pain) Heme: No abnormal bleeding/bruising Medications Current Inpatient Medications Medications (Trade) Dose Ordered Sig/Emely Route Start Time Stop Time Status Last Admin Dose Admin Ioversol (Optiray 320) 125 ml UD PRN IV 02/15/17 12:45 02/19/17 12:44 Heparin Sodium (Porcine) (Heparin Sq 5000 Unit/0.5ml) 5,000 unit Q12 SQ 02/15/17 21:00 03/17/17 20:59 02/16/17 08:22 5,000 UNIT Acetaminophen (Tylenol Tab) 650 mg Q4H PRN PO 02/15/17 16:00 03/17/17 15:59 02/15/17 21:03 650 MG Al Hydrox/Mg Hydrox/Simethicone (Maalox Max Susp) 15 ml Q4H PRN PO 02/15/17 16:00 03/17/17 15:59 Magnesium Hydroxide (Milk Of Magnesia Susp) 30 ml Q12H PRN PO 02/15/17 16:00 03/17/17 15:59 Ondansetron HCl (Zofran Inj) 4 mg Q6H PRN IV 02/15/17 16:00 03/17/17 15:59 Nitroglycerin (Nitrostat Tab) 0.4 mg UD PRN SL 02/15/17 16:00 03/17/17 15:59 Polyethylene (Miralax Powder Packet) 17 gm DAILY PRN PO 02/15/17 16:00 03/17/17 15:59 Aspirin (Ecotrin Tab) 325 mg QAM PO 02/16/17 09:00 03/18/17 08:59 02/16/17 08:20 325 MG Atorvastatin Calcium (Lipitor Tab) 40 mg DAILY PO 02/16/17 09:00 03/18/17 08:59 02/16/17 08:20 40 MG Cilostazol (Pletal Tab) 100 mg BID PO 02/15/17 21:00 03/17/17 20:59 02/16/17 08:20 100 MG Lisinopril (Zestril Tab) 40 mg DAILY PO 02/16/17 09:00 03/18/17 08:59 02/16/17 08:20 40 MG Metoprolol Tartrate (Lopressor Tab) 50 mg BID PO 02/15/17 21:00 03/17/17 20:59 02/16/17 08:20 50 MG Levofloxacin 750 mg/Prmx 150 ml @ 100 mls/hr Q24H IV 02/16/17 16:00 02/21/17 17:29 Lidocaine (Lidoderm Patch 5%) 1 patch DAILY TD 02/15/17 19:00 03/17/17 18:59 02/16/17 11:18 1 PATCH Miscellaneous (Remove Lidoderm Patch) 1 ea DAILY@21 N/A 02/15/17 23:59 03/17/17 23:58 02/16/17 01:00 1 EA Potassium Chloride (Klor-Con M10) 40 meq DAILY PO 02/16/17 09:00 03/18/17 08:59 02/16/17 08:19 40 MEQ Sodium Chloride 1,000 ml @ 100 mls/hr Q10H IV 02/16/17 08:15 03/18/17 08:14 02/16/17 08:27 100 MLS/HR Objective Vital Signs Date Time Temp Pulse Resp B/P (MAP) Pulse Ox O2 Delivery O2 Flow Rate FiO2 02/16/17 11:43 36.7 74 18 124/63 (83) 96 02/16/17 08:10 96 Nasal Cannula 3.0 02/16/17 07:43 37.0 72 18 129/64 (85) 96 02/16/17 04:10 36.6 77 18 148/72 (97) 94 Nasal Cannula 3.0 02/16/17 04:00 Nasal Cannula 3.0 02/16/17 00:00 36.8 74 20 158/75 (102) 97 Nasal Cannula 3.0 02/16/17 00:00 97 Nasal Cannula 3.0 02/15/17 20:00 92 Nasal Cannula 3.0 02/15/17 19:10 36.8 82 21 152/75 (100) 92 Nasal Cannula 3.0 02/15/17 18:36 36.9 84 18 149/74 (99) 90 Nasal Cannula 3.0 02/15/17 16:26 Room Air 02/15/17 15:17 75 20 160/89 98 Nasal Cannula 3.0 02/15/17 13:41 77 18 143/77 95 Nasal Cannula 2.0 02/15/17 13:09 71 02/15/17 12:45 75 17 149/83 96 Nasal Cannula 2.0 Physical Exam General Appearance: no apparent distress, + pertinent finding Respiratory/Chest: chest non-tender, lungs clear, normal breath sounds, no respiratory distress, no accessory muscle use Cardiovascular: regular rate, rhythm, no murmur Extremities: + pertinent finding (+L AKA) Laboratory Results Last 24 Hours Test 02/15/17 15:15 02/15/17 18:47 02/15/17 19:38 02/15/17 19:40 Urine Color YELLOW Urine Appearance CLEAR Urine pH 6.0 Urine Specific [place] 1.033 Urine Protein 1+ Urine Glucose (UA) 2+ Urine Ketones 1+ Urine Occult Blood TRACE Urine Nitrite NEG Urine Bilirubin NEG Urine Urobilinogen NEG Urine Leukocyte Esterase TRACE Urine WBC (Auto) 1-5 /hpf Urine RBC (Auto) 0-4 /hpf Urine Hyaline Casts (Auto) 1-5 /lpf Urine Epithelial Cells (Auto) 20-30 /lpf Urine Bacteria (Auto) NEG Sodium Level 125 mmol/L Potassium Level 3.3 mmol/L Chloride Level 90 mmol/L Carbon Dioxide Level 24 mmol/L Anion Gap 11.0 mmol/L Blood Urea Nitrogen 6 mg/dl Creatinine 0.48 mg/dl Est Creatinine Clear Calc Drug Dose 83.7 ml/min Estimated GFR () 111.2 Estimated GFR (Non- 96.0 BUN/Creatinine Ratio 11.9 Random Glucose 124 mg/dl Calcium Level 8.3 mg/dl White Blood Count 15.39 K/uL Red Blood Count 4.30 M/uL Hemoglobin 13.7 g/dL Hematocrit 36.4 % Mean Corpuscular Volume 84.7 fL Mean Corpuscular Hemoglobin 31.9 pg Mean Corpuscular Hemoglobin Concent 37.6 g/dl RDW Standard Deviation 38.6 fL RDW Coefficient of Variation 12.6 % Platelet Count 241 K/uL Mean Platelet Volume 9.1 fL Lactic Acid Level 1.0 mmol/L Urine Osmolality 424 mOms/kg Urine Random Sodium 115 mEq/L Test 02/15/17 22:00 02/16/17 06:09 Estimated Average Glucose 126 mg/dl Hemoglobin A1c 6.0 % Total Creatine Kinase 353 U/L 529 U/L Creatine Kinase MB 5.7 ng/ml 8.0 ng/ml Creatine Kinase MB Ratio 1.6 1.5 Troponin I 0.373 ng/ml 0.920 ng/ml White Blood Count 16.76 K/uL Red Blood Count 4.26 M/uL Hemoglobin 13.7 g/dL Hematocrit 36.2 % Mean Corpuscular Volume 85.0 fL Mean Corpuscular Hemoglobin 32.2 pg Mean Corpuscular Hemoglobin Concent 37.8 g/dl Platelet Count 233 K/uL Mean Platelet Volume 9.1 fL Neutrophils (%) (Auto) 86.3 % Lymphocytes (%) (Auto) 9.5 % Monocytes (%) (Auto) 3.7 % Eosinophils (%) (Auto) 0.0 % Basophils (%) (Auto) 0.1 % Neutrophils # (Auto) 14.47 K/uL Lymphocytes # (Auto) 1.59 K/uL Monocytes # (Auto) 0.62 K/uL Eosinophils # (Auto) 0.00 K/uL Basophils # (Auto) 0.02 K/uL RDW Standard Deviation 39.1 fL RDW Coefficient of Variation 12.7 % Immature Granulocyte % (Auto) 0.4 % Immature Granulocyte # (Auto) 0.06 K/uL Sodium Level 125 mmol/L Potassium Level 3.4 mmol/L Chloride Level 89 mmol/L Carbon Dioxide Level 24 mmol/L Anion Gap 12.0 mmol/L Blood Urea Nitrogen 4 mg/dl Creatinine 0.62 mg/dl Est Creatinine Clear Calc Drug Dose 64.8 ml/min Estimated GFR () 102.2 Estimated GFR (Non- 88.2 BUN/Creatinine Ratio 6.6 Random Glucose 120 mg/dl Calcium Level 8.5 mg/dl Magnesium Level 1.6 mg/dl Assessment and Plan This is a 76yo female with a PMH of CAD (s/p stent in ), HTN, HLD, AAA ( without rupture), carotid stenosis, PVD (s/p L AKA in 09/10) and osteoporosis who presents with back and chest pain since this morning. Metabolic Encephalopathy secondary to PNA 02/16 Plan today is to continue Levaquin give IVFs white count improving clinically improving 02/15 -Chest thorax CTA with bilateral lower lobe airspace opacities, right greater than left. The appearance favors atelectasis although pneumonia could appear similar -No pulmonary emboli identified -Leukocytosis of 22.53 -Endorses CP. Denies SOB, fever, chills -Not on home O2, but became hypoxic at 87% on room air. Satting 98% on 3L NC -Started on Levoquin Type 2 OR, Demand Ischemia elevated troponin level, increasing to 0.9 likely secondary to infection, dehydration replace K and Mg echo and EKG with no significant change cardiology consulted for further input Back pain 02/16 lidocaine patch for now avoiding narcotics secondary to encephalopathy 02/15 -No history of back pain -Chest thorax CTA with sub-acute to chronic compression fractures: -Severe T6 compression fracture with retropulsion that results in mild to mod narrowing of the central canal -Mild T8 compression fracture. -History of osteoporosis. On alendronate, calcium -Lidoderm patch for pain control Hypotonic hyponatremia: 02/16 patient with chronic hyponatremia, baseline is around 129-130 currently 125 low urine osm, low serum osm will give some IVFs, and monitor stop HCTZ 02/15 -Confusion, nausea & vomiting -Na of 122 on admission -Serum osm low at 267 -Urine osm pending -Repeat NA pending -Held HCTZ Electrolyte abnormalities: replacing K and Mg HTN: -Stable -Continue metoprolol and lisinopril -Held HCTZ in setting of hyponatremia HLD: -Continue atorvastatin PVD (s/p L AKA in 09/10): -Follows with Dr. Alexandre with vascular surgery -Continue Pletal BID -Denies intermittent claudication but also does not ambulate with prosthetic. Uses wheelchair Carotid stenosis: -Stable -Continue following with PCP and out-pt cardio DVT Ppx: Heparin SQ Code status: FULL PCP: Lara Dispo: Discharge planning ordered
--- NOTE | 2017-02-16 12:35 | CARDIOLOGY CONSULTATION ---
DATE OF CONSULTATION: 02/16/2017 DATE OF CONSULTATION: 02/16/2017 PERTINENT HISTORY: Mrs. Florian is a 76-year-old white female admitted yesterday with intractable mid back pain. Her troponin I level is mildly elevated and therefore, this consultation was ordered. Of note, patient previously followed with Dr. Knapp in our office and has an upcoming appointment with me on March 02. The patient is a 76-year-old white female with significant peripheral vascular disease who awoke yesterday morning with severe mid back pain. The patient explains that this was an 8 on a 10 scale in terms of the discomfort experienced. There were no other associated symptoms such short of breath, nausea, vomiting, or diaphoresis. Her discomfort persisted throughout the day leading up to her evaluation in the Emergency Room. On arrival here, her EKG showed no acute changes. Her initial troponin was elevated at 0.146. CT scan of the chest was performed which showed no evidence of pulmonary embolism or aortic dissection. There was evidence of a T6 and T8 compression fracture. The patient's discomfort slowly improved with the use of topical lidocaine. She now experiences low back discomfort. At no time did she experience chest discomfort. The patient is ambulatory with the use of a prosthesis. She occasionally uses a wheelchair. She has never experienced exertional angina pectoris or limiting dyspnea. She further denies syncope, presyncope, PND, orthopnea, palpitations, lower extremity edema, and claudication. The possibility of bilobar pneumonia has been entertained. The patient was placed on intravenous antibiotics. Long discussion was held with the patient, her , and son who are at the bedside. We have discussed the possible need for a stress test prior to her discharge. There is no indication for acute cardiac catheterization at this time. PAST MEDICAL HISTORY: 1. Coronary artery disease. 2. Obtuse marginal PCI -- 2004 -- [facility]. 3. Hypertension. 4. Hypercholesterolemia. 5. Peripheral vascular disease. 6. AAA -- 4.2 x 4.0 cm - October 2016. 7. Bilateral iliac artery stenting - April 2010. 8. Proximal right SFA occlusion. 9. High grade proximal left SFA occlusions. 10. Emphysema. 11. Cerebrovascular disease -- Dr. Alexandre. 12. Cholelithiasis. 13. Osteopenia. MEDICATIONS: 1. Metoprolol tartrate 50 mg b.i.d. 2. Zestril 40 mg daily. 3. Aspirin 325 mg per day. 4. Lipitor 40 mg at bedtime. 5. Heparin 5000 units subQ b.i.d. 6. Pletal 100 mg b.i.d. 7. Lidocaine patch. 8. Potassium 40 mg daily. 9. Levofloxacin 750 mg IV daily. ALLERGIES: ANTIHISTAMINES. SOCIAL HISTORY: The patient is and lives with her . Stopped tobacco use in 2008. Admits to 1-2 cans of beer every day. FAMILY HISTORY: Mother at age 81 from CVA. Father in his 60s from unknown causes. She has a brother who is an invalid. REVIEW OF SYSTEMS: A 10-point review of systems was negative except for that described above. PHYSICAL EXAMINATION: GENERAL: This is a well-developed, well-nourished white female in no acute distress. VITAL SIGNS: Blood pressure 129/64 with a regular pulse of 72. Respiratory rate is 18 and the patient is afebrile at 37.0 degrees Celsius. Saturations 96% on 3 liters nasal cannula. HEAD, EYES, EARS, NOSE, AND THROAT: Negative. NECK: Supple with full carotid upstrokes. No obvious bruits. Jugular venous pressure is flat at 90 degrees. There is no thyromegaly. CARDIOVASCULAR EXAMINATION: Reveals a regular rhythm with normal S1 and S2. No S3, S4, or murmurs are noted. LUNGS: Clear without rales, rhonchi, or wheezes. BACK: Notes some tenderness to palpation in the lumbar region. ABDOMEN: Soft without bruits. EXTREMITIES: Reveal intact radial artery pulses bilaterally. Right posterior tibial pulses nonpalpable. There is no peripheral edema. Left-sided AKA noted. LABORATORY DATA: CBC notes hemoglobin of 13.7, hematocrit 36.2, white count 16.7, platelet count 233,000. Electrolytes note a sodium of 125, potassium 3.4, chloride 89, bicarbonate 24, BUN 4, creatinine 0.62, glucose 110. Initial troponin was 0.146 with follow-up values of 0.373 and 0.920. CK is 353 with a follow-up value of 529. MB fractions are 5.7 and 8.0 respectively. EKG notes sinus rhythm with frequent PVCs and nonspecific ST abnormality. Echocardiogram notes normal left ventricular size and hyperdynamic function with an ejection fraction of greater than 70%. There is mild left ventricular hypertrophy and evidence of diastolic dysfunction. Mild mitral and tricuspid regurgitation is seen. CT scan of the chest noted no evidence of pulmonary embolism or aortic dissection. There are bilateral lower lobe opacities consistent with possible pneumonia. Emphysematous changes are seen. There is a 7 mm right upper lobe nodule, which should be followed in 6 months. A T6 and T8 compression fracture identified, acuity cannot be fully determined. Cardiomegaly is seen. IMPRESSION: Mrs. Florian was admitted with intractable mid back discomfort. Her workup fortunately showed no evidence of pulmonary embolism or an aortic dissection. There are no acute EKG changes and at no time has she experienced chest discomfort. Her echocardiogram notes hyperdynamic left ventricular systolic function without wall motion abnormality. Her CT scan did identify compression fractures at T6 and T8. She also may have bilateral lower lobe pneumonia. I did not feel that her elevated troponins represent myocardial ischemia. Would recommend a dobutamine stress test prior to her discharge to fully rule out coronary ischemia. PLAN: 1. Agree with continuation of usual outpatient cardiac medications. 2. Agree with intravenous antibiotics. 3. Would perform dobutamine stress echocardiogram prior to discharge. 4. Further recommendations depending on her clinical course.
[2017-02-16] MEDS: LEVOFLOXACIN / D5W 750 MG in PREMIXED IN D5W 150 ML IV SCH (15:30)
[2017-02-16] MEDS: ONDANSETRON INJ 2 MG/ML 2 ML VIAL IV PRN (19:43)
[2017-02-17] VITALS (9 sets, daily range): BP systolic 150–172; BP diastolic 70–85; PULSE 73–97; TEMP 36.4–37.2; O2SAT 91–96
[2017-02-17] MEDS: SODIUM CHLORIDE 0.9% 1000ML 1,000 ML IV SCH (05:12)
[2017-02-17 06:33] LABS: HEMATOCRIT 37.2 % (37-47); MEAN CELL VOLUME 84.9 fL (80-100); MEAN CORPUSCULAR HEMOGLOBIN 31.5 pg (25-34); MEAN CORPUSCULAR HGB CONC 37.1 g/dl (32-36); MEAN PLATELET VOLUME 9.1 fL (7.4-10.4); PLATELET COUNT 241 K/uL (130-400); RED BLOOD COUNT 4.38 M/uL (4.2-5.4); WHITE BLOOD COUNT 12.84 K/uL (4.8-10.8)
[2017-02-17 07:02] LABS: BUN/CREATININE RATIO 12.1 (10-20); CALCIUM 7.8 mg/dl (8.5-10.1); CREATININE 0.39 mg/dl (0.60-1.20); MAGNESIUM 1.8 mg/dl (1.8-2.4); POTASSIUM 3.3 mmol/L (3.5-5.1)
[2017-02-17] MEDS ORDERED: POTASSIUM CHLR 20 MEQ / WTR 20 MEQ in PREMIXED WATER 100 ML IV STA (07:24)
[2017-02-17] MEDS: CILOSTAZOL 100 MG TAB PO SCH ×2 (08:49→20:26)
[2017-02-17] MEDS: METOPROLOL TARTRATE 50 MG TAB PO SCH ×2 (08:49→20:25)
[2017-02-17] MEDS: ATORVASTATIN 40 MG TAB PO SCH (08:49)
[2017-02-17] MEDS: POTASSIUM CHLR 10MEQ / WTR IV SCH ×2 (08:49→09:52)
[2017-02-17] MEDS: LIDODERM (LIDOCAINE) PATCH 5% TD SCH (08:49)
[2017-02-17] MEDS: ASPIRIN 325 MG ECTAB PO SCH (08:50)
[2017-02-17] MEDS: LISINOPRIL 40 MG TAB PO SCH (08:50)
[2017-02-17] MEDS: POTASSIUM CHLORIDE 10 MEQ TABCR PO SCH ×3 (08:50→20:27)
[2017-02-17] MEDS: HEPARIN SOD 5000 UNIT/0.5 ML CARP SQ SCH ×2 (08:52→20:30)
--- NOTE | 2017-02-17 09:09 | Progress Note ---
Subjective Date of Service: Feb 17, 2017. Subjective Pt evaluation today including: conversation w/ patient, physical exam, lab review, review of studies, review of inpatient medication list Saw/examined the patient in room 221 Doing better; more awake/alert Remembers events from the previous day Denies chest pain or shortness of breath C/o back pain; some improvement with medications Problem List Medical Problems: (1) Elevated troponin Status: Acute (2) Hyponatremia Status: Acute (3) Pneumonia Status: Acute (4) Substernal chest pain Status: Acute Review of Systems Constitutional: No fever, No chills Respiratory: No cough, No sputum, No shortness of breath Cardiac: No chest pain Abdomen: No pain, No nausea, No vomiting, No diarrhea Musculoskeletal: + joint pain (low to mid back pain) Heme: No abnormal bleeding/bruising Medications Current Inpatient Medications Medications (Trade) Dose Ordered Sig/Emely Route Start Time Stop Time Status Last Admin Dose Admin Ioversol (Optiray 320) 125 ml UD PRN IV 02/15/17 12:45 02/19/17 12:44 Heparin Sodium (Porcine) (Heparin Sq 5000 Unit/0.5ml) 5,000 unit Q12 SQ 02/15/17 21:00 03/17/17 20:59 02/17/17 08:52 5,000 UNIT Acetaminophen (Tylenol Tab) 650 mg Q4H PRN PO 02/15/17 16:00 03/17/17 15:59 02/15/17 21:03 650 MG Al Hydrox/Mg Hydrox/Simethicone (Maalox Max Susp) 15 ml Q4H PRN PO 02/15/17 16:00 03/17/17 15:59 Magnesium Hydroxide (Milk Of Magnesia Susp) 30 ml Q12H PRN PO 02/15/17 16:00 03/17/17 15:59 Ondansetron HCl (Zofran Inj) 4 mg Q6H PRN IV 02/15/17 16:00 03/17/17 15:59 02/16/17 19:43 4 MG Nitroglycerin (Nitrostat Tab) 0.4 mg UD PRN SL 02/15/17 16:00 03/17/17 15:59 Polyethylene (Miralax Powder Packet) 17 gm DAILY PRN PO 02/15/17 16:00 03/17/17 15:59 Aspirin (Ecotrin Tab) 325 mg QAM PO 02/16/17 09:00 03/18/17 08:59 02/17/17 08:50 325 MG Atorvastatin Calcium (Lipitor Tab) 40 mg DAILY PO 02/16/17 09:00 03/18/17 08:59 02/17/17 08:49 40 MG Cilostazol (Pletal Tab) 100 mg BID PO 02/15/17 21:00 03/17/17 20:59 02/17/17 08:49 100 MG Lisinopril (Zestril Tab) 40 mg DAILY PO 02/16/17 09:00 03/18/17 08:59 02/17/17 08:50 40 MG Metoprolol Tartrate (Lopressor Tab) 50 mg BID PO 02/15/17 21:00 03/17/17 20:59 02/17/17 08:49 50 MG Levofloxacin 750 mg/Prmx 150 ml @ 100 mls/hr Q24H IV 02/16/17 16:00 02/21/17 17:29 02/16/17 15:30 100 MLS/HR Lidocaine (Lidoderm Patch 5%) 1 patch DAILY TD 02/15/17 19:00 03/17/17 18:59 02/17/17 08:49 1 PATCH Miscellaneous (Remove Lidoderm Patch) 1 ea DAILY@21 N/A 02/15/17 23:59 03/17/17 23:58 02/16/17 20:48 1 EA Potassium Chloride (Klor-Con M10) 40 meq DAILY PO 02/16/17 09:00 03/18/17 08:59 02/17/17 08:50 40 MEQ Potassium Chloride 10 meq/ Prmx 100 ml @ 100 mls/hr 0800,0900 IV 02/17/17 08:00 02/17/17 12:00 02/17/17 08:49 100 MLS/HR Amlodipine Besylate (Norvasc Tab) 5 mg QAM PO 02/17/17 09:00 03/19/17 08:59 UNV Objective Vital Signs Date Time Temp Pulse Resp B/P (MAP) Pulse Ox O2 Delivery O2 Flow Rate FiO2 02/17/17 07:46 36.4 92 18 166/83 (110) 96 3.0 02/17/17 04:05 Nasal Cannula 3.0 02/17/17 04:00 37.0 85 20 153/78 (103) 95 Nasal Cannula 3.0 02/17/17 00:01 Nasal Cannula 3.0 02/17/17 00:00 37.2 87 18 172/70 (104) 93 Nasal Cannula 3.0 02/16/17 20:00 Nasal Cannula 3.0 02/16/17 19:55 36.9 86 18 145/79 (101) 94 Nasal Cannula 2.0 02/16/17 16:00 Nasal Cannula 3.0 02/16/17 15:11 37.0 78 18 146/71 (96) 92 Nasal Cannula 3.0 02/16/17 12:00 Nasal Cannula 3.0 02/16/17 11:43 36.7 74 18 124/63 (83) 96 Physical Exam General Appearance: no apparent distress Respiratory/Chest: lungs clear, normal breath sounds, no respiratory distress, no accessory muscle use Cardiovascular: regular rate, rhythm, no edema, no murmur Abdomen: normal bowel sounds, non tender, soft Extremities: + pertinent finding (L AKA, decreased/painful ROM of the back; tenderness to palpation of the mid back) Neurologic/Psychiatric: no motor/sensory deficits, alert, normal mood/affect, oriented x 3 Laboratory Results Last 24 Hours Test 02/17/17 06:14 White Blood Count 12.84 K/uL Red Blood Count 4.38 M/uL Hemoglobin 13.8 g/dL Hematocrit 37.2 % Mean Corpuscular Volume 84.9 fL Mean Corpuscular Hemoglobin 31.5 pg Mean Corpuscular Hemoglobin Concent 37.1 g/dl RDW Standard Deviation 38.5 fL RDW Coefficient of Variation 12.5 % Platelet Count 241 K/uL Mean Platelet Volume 9.1 fL Sodium Level 123 mmol/L Potassium Level 3.3 mmol/L Chloride Level 90 mmol/L Carbon Dioxide Level 22 mmol/L Anion Gap 11.0 mmol/L Blood Urea Nitrogen 5 mg/dl Creatinine 0.39 mg/dl Est Creatinine Clear Calc Drug Dose 103.1 ml/min Estimated GFR () 119.1 Estimated GFR (Non- 102.7 BUN/Creatinine Ratio 12.1 Random Glucose 124 mg/dl Calcium Level 7.8 mg/dl Magnesium Level 1.8 mg/dl Assessment and Plan This is a 76yo female with a PMH of CAD (s/p stent in s), HTN, HLD, AAA ( without rupture), carotid stenosis, PVD (s/p L AKA in 09/10) and osteoporosis who presents with back and chest pain since this morning. Metabolic Encephalopathy secondary to PNA 02/17 will continue Levaquin for now Legionella pending 02/16 Plan today is to continue Levaquin give IVFs white count improving clinically improving 02/15 -Chest thorax CTA with bilateral lower lobe airspace opacities, right greater than left. The appearance favors atelectasis although pneumonia could appear similar -No pulmonary emboli identified -Leukocytosis of 22.53 -Endorses CP. Denies SOB, fever, chills -Not on home O2, but became hypoxic at 87% on room air. Satting 98% on 3L NC -Started on Levoquin Type 2 AL, Demand Ischemia 02/17 appreciate cardiology input will need dobutamine stress prior to discharge; tentatively planned for , 02/18 02/16 elevated troponin level, increasing to 0.9 likely secondary to infection, dehydration replace K and Mg echo and EKG with no significant change cardiology consulted for further input Back pain 02/17 added PT/OT lidocaine patch if pain does not improve, will add low dose narcotic 02/16 lidocaine patch for now avoiding narcotics secondary to encephalopathy 02/15 -No history of back pain -Chest thorax CTA with sub-acute to chronic compression fractures: -Severe T6 compression fracture with retropulsion that results in mild to mod narrowing of the central canal -Mild T8 compression fracture. -History of osteoporosis. On alendronate, calcium -Lidoderm patch for pain control Hypotonic hyponatremia: 02/17 stop IVFs nephrology consulted for further input 02/16 patient with chronic hyponatremia, baseline is around 129-130 currently 125 low urine osm, low serum osm will give some IVFs, and monitor stop HCTZ 02/15 -Confusion, nausea & vomiting -Na of 122 on admission -Serum osm low at 267 -Urine osm pending -Repeat NA pending -Held HCTZ Electrolyte abnormalities: replacing K and Mg HTN: -Stable -Continue metoprolol and lisinopril -Held HCTZ in setting of hyponatremia HLD: -Continue atorvastatin PVD (s/p L AKA in 09/10): -Follows with Dr. Alexandre with vascular surgery -Continue Pletal BID -Denies intermittent claudication but also does not ambulate with prosthetic. Uses wheelchair Carotid stenosis: -Stable -Continue following with PCP and out-pt cardio DVT Ppx: Heparin SQ Code status: FULL PCP: Lara Dispo: Discharge planning ordered
[2017-02-17] MEDS: AMLODIPINE BESYLATE 5 MG TAB PO SCH (09:35)
[2017-02-17] MEDS: ACETAMINOPHEN 325 MG TAB PO PRN (09:40)
--- NOTE | 2017-02-17 10:17 | CARDIOLOGY PROGRESS NOTE ---
DATE: 02/17/2017 SUBJECTIVE: Mrs. Florian is resting comfortably in bedside chair without complaints of chest pain or dyspnea. Back pain has improved since applying a Lidoderm patch. OBJECTIVE: VITAL SIGNS: Blood pressure 166/83 with a regular pulse of 90. Respiratory rate is 18. The patient is afebrile at 36.4 degrees Celsius. Saturation is 96% on 2 liters nasal cannula. NECK: Supple with full carotid upstrokes. There are no carotid bruits. Jugular venous pressure is flat at 90 degrees. There is no thyromegaly. CARDIOVASCULAR: Reveals a regular rhythm with normal S1 and S2. No S3, S4, or murmurs are noted. LUNGS: Clear without rales, rhonchi, or wheezes. ABDOMEN: Soft without bruits. EXTREMITIES: Reveal intact radial artery pulses bilaterally. Right posterior tibial pulse is nonpalpable. No peripheral edema. Left-sided AKA noted. DATA: CBC notes a hemoglobin of 13.8, hematocrit 37.2, white count 12.8, and platelet count 241,000. Electrolytes note a sodium of 123, potassium 3.3, chloride 90, bicarb 22, BUN 5, creatinine 0.39, and glucose 124. security monitor is benign. EKG notes normal sinus rhythm with a nonspecific ST abnormality. IMPRESSION AND PLAN: 1. Increased troponin -- likely secondary to her pneumonia and poor clinical state at the time of presentation. Doubt myocardial ischemia. However, we will perform a dobutamine stress echocardiogram prior to discharge. 2. Hyperdynamic left ventricular systolic function. 3. Hypertension -- with mild left ventricular hypertrophy and evidence of diastolic dysfunction. Likely cause of elevated troponin as described above. 4. Coronary artery disease -- status post obtuse marginal PCI in 2004 at [facility]. 5. Peripheral vascular disease -- with a 4.2 x 4.0-cm abdominal aortic aneurysm seen on CT scan in October 2016. Also, status post bilateral iliac artery stenting in April 2010. Had a left above knee amputation in August 2015 because of a nonhealing left lower extremity ulcer. 6. Hyponatremia. 7. Pneumonia.
--- NOTE | 2017-02-17 10:27 | Nephrology Consultation ---
Nephrology Consultation Date of Consultation: Feb 17, 2017. Attending Physician: Dr Rivers Requesting Physician: Dr Rivers Reason for Consultation: Hyponatremia History of Present Illness 76 year old female w/ chronic hyponatremia admitted 02/15 for pneumonia and encephalopathy after she presented with chest and back pain, confusion, sNa 122 , K 2.2. She is on hctz as outpt and has chronic sNa in low 130s x years in inpt and outpt records. Other PMH includes CAD (remote stent), HTN, HL, nonruptured AAA, PVD s/p L AKA 08/2015 and BL iliac artery stenting 04/2010 w/ proximal BL SFA occlusions (high grade on L), emphysema, osteoporosis, daily EtOH use. Troponin was slightly elevated on presentation but ACS ruled out. States to me that she drinks 2-[address] chest showed BL pna and 2 thoracic compression frxs. Past Medical/Surgical History Medical Problems: (1) Elevated troponin Status: Acute (2) Hyponatremia Status: Acute (3) Pneumonia Status: Acute (4) Substernal chest pain Status: Acute as per HPI Family History Diabetes mellitus FH: heart disease Stroke Social History Smoking Status: Former Smoker Marital Status: Housing Status: lives with significant other Occupation Status: retired Allergies Coded Allergies: Antihistamines, Diphenhydramine-typ (Verified Adverse Reaction, Unknown, MAKES HEART RACE, 08/01/15) Medications Current Inpatient Medications Medications (Trade) Dose Ordered Sig/Emely Route Start Time Stop Time Status Last Admin Dose Admin Ioversol (Optiray 320) 125 ml UD PRN IV 02/15/17 12:45 02/19/17 12:44 Heparin Sodium (Porcine) (Heparin Sq 5000 Unit/0.5ml) 5,000 unit Q12 SQ 02/15/17 21:00 03/17/17 20:59 02/16/17 20:47 5,000 UNIT Acetaminophen (Tylenol Tab) 650 mg Q4H PRN PO 02/15/17 16:00 03/17/17 15:59 02/15/17 21:03 650 MG Al Hydrox/Mg Hydrox/Simethicone (Maalox Max Susp) 15 ml Q4H PRN PO 02/15/17 16:00 03/17/17 15:59 Magnesium Hydroxide (Milk Of Magnesia Susp) 30 ml Q12H PRN PO 02/15/17 16:00 03/17/17 15:59 Ondansetron HCl (Zofran Inj) 4 mg Q6H PRN IV 02/15/17 16:00 03/17/17 15:59 02/16/17 19:43 4 MG Nitroglycerin (Nitrostat Tab) 0.4 mg UD PRN SL 02/15/17 16:00 03/17/17 15:59 Polyethylene (Miralax Powder Packet) 17 gm DAILY PRN PO 02/15/17 16:00 03/17/17 15:59 Aspirin (Ecotrin Tab) 325 mg QAM PO 02/16/17 09:00 03/18/17 08:59 02/16/17 08:20 325 MG Atorvastatin Calcium (Lipitor Tab) 40 mg DAILY PO 02/16/17 09:00 03/18/17 08:59 02/16/17 08:20 40 MG Cilostazol (Pletal Tab) 100 mg BID PO 02/15/17 21:00 03/17/17 20:59 02/16/17 20:42 100 MG Lisinopril (Zestril Tab) 40 mg DAILY PO 02/16/17 09:00 03/18/17 08:59 02/16/17 08:20 40 MG Metoprolol Tartrate (Lopressor Tab) 50 mg BID PO 02/15/17 21:00 03/17/17 20:59 02/16/17 20:42 50 MG Levofloxacin 750 mg/Prmx 150 ml @ 100 mls/hr Q24H IV 02/16/17 16:00 02/21/17 17:29 02/16/17 15:30 100 MLS/HR Lidocaine (Lidoderm Patch 5%) 1 patch DAILY TD 02/15/17 19:00 03/17/17 18:59 02/16/17 11:18 1 PATCH Miscellaneous (Remove Lidoderm Patch) 1 ea DAILY@21 N/A 02/15/17 23:59 03/17/17 23:58 02/16/17 20:48 1 EA Potassium Chloride (Klor-Con M10) 40 meq DAILY PO 02/16/17 09:00 03/18/17 08:59 02/16/17 08:19 40 MEQ Potassium Chloride 10 meq/ Prmx 100 ml @ 100 mls/hr 0800,0900 IV 02/17/17 08:00 02/17/17 12:00 Amlodipine Besylate (Norvasc Tab) 5 mg QAM PO 02/17/17 09:00 03/19/17 08:59 UNV Home Meds and Scripts Medications Dose Route/Sig Max Daily Dose Days Date Category Pletal (Cilostazol) 100 Mg Tab 100 Mg PO BID 02/15/17 Reported Fish Oil (Hutchinson-3 Fatty Acids) 1 Cap Cap 1 Cap PO DAILY 02/15/17 Reported Calcium (Calcium Carbonate) 600 Mg Tab 600 Mg PO DAILY 02/15/17 Reported Atorvastatin Calcium (Atorvastatin) 40 Mg Tab 40 Mg PO DAILY 02/15/17 Reported Metoprolol Tartrate 50 Mg Tab 50 Mg PO BID 02/15/17 Reported Amlodipine Besylate 10 Mg Tab 10 Mg PO DAILY 02/15/17 Reported Lisinopril 40 Mg Tab 40 Mg PO DAILY 02/15/17 Reported Hydrochlorothiazide 25 Mg Tab 25 Mg PO DAILY 02/15/17 Reported Nitrostat (Nitroglycerin) 0.4 Mg Tab 0.4 Mg UT PRN 02/04/12 Reported Fosamax (Alendronate Sodium) 70 Mg Tab 70 Mg PO QMON 02/04/12 Reported Multivitamin (Multiple Vitamin) 1 Tab Tab 1 Tab PO QAM 02/04/12 Reported Aspirin 325 Mg Tab 325 Mg PO QAM 02/04/12 Reported Physical Exam Date Time Temp Pulse Resp B/P (MAP) Pulse Ox O2 Delivery O2 Flow Rate FiO2 02/17/17 07:46 36.4 92 18 166/83 (110) 96 3.0 02/17/17 04:05 Nasal Cannula 3.0 02/17/17 04:00 37.0 85 20 153/78 (103) 95 Nasal Cannula 3.0 02/17/17 00:01 Nasal Cannula 3.0 02/17/17 00:00 37.2 87 18 172/70 (104) 93 Nasal Cannula 3.0 02/16/17 20:00 Nasal Cannula 3.0 02/16/17 19:55 36.9 86 18 145/79 (101) 94 Nasal Cannula 2.0 02/16/17 16:00 Nasal Cannula 3.0 02/16/17 15:11 37.0 78 18 146/71 (96) 92 Nasal Cannula 3.0 02/16/17 12:00 Nasal Cannula 3.0 02/16/17 11:43 36.7 74 18 124/63 (83) 96 Diagnostics Last 24 Hours Test 02/17/17 06:14 White Blood Count 12.84 K/uL Red Blood Count 4.38 M/uL Hemoglobin 13.8 g/dL Hematocrit 37.2 % Mean Corpuscular Volume 84.9 fL Mean Corpuscular Hemoglobin 31.5 pg Mean Corpuscular Hemoglobin Concent 37.1 g/dl RDW Standard Deviation 38.5 fL RDW Coefficient of Variation 12.5 % Platelet Count 241 K/uL Mean Platelet Volume 9.1 fL Sodium Level 123 mmol/L Potassium Level 3.3 mmol/L Chloride Level 90 mmol/L Carbon Dioxide Level 22 mmol/L Anion Gap 11.0 mmol/L Blood Urea Nitrogen 5 mg/dl Creatinine 0.39 mg/dl Est Creatinine Clear Calc Drug Dose 103.1 ml/min Estimated GFR () 119.1 Estimated GFR (Non- 102.7 BUN/Creatinine Ratio 12.1 Random Glucose 124 mg/dl Calcium Level 7.8 mg/dl Magnesium Level 1.8 mg/dl Diagnostic Radiology: CT chest PE protocol > severe emphysema, no PE, possible PNA BL, severe T6 compression fracture; trace L perinephric infiltration Assessment & Plan 76 y/o F w/ daily EtOH use, severe emphysema not on home 02/inhalers, HTN, CAD and severe PVD on full dose daily asa, osteoporosis admitted 02/15 with confusion , severe back/chest pain, presenting sNa 122, K 2.2. 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 as well as low solute diet in setting of chronic EtOH use and hctz daily >sodium improved to 125 at first but today back to 123; did have IVF yesterday; admission urine more consistent w/ volume depletion -do not d/c on hctz and cont to hold -suspect ASA full dose is obligate d/t PVD -keep K at about 4 >> f/u repeat bmp at 1300 today; replete po if possible -goal SBP for am is 131 -reluctant to use lasix d/t hypokalemia, reluctant to use salt tabs d/t HTN ->increased standing K suppls from 40 mEq daily to tid -control pain/ N either of which worsen hypoNa >limited fluids to 1.2L daily Hypomagnesemia -ck daily; replete po if possible HTN and elevated troponin -cont ACEI, CCB, BB -cardiology f/u as indicated -?role for EtOH Hypoxia, PNA -on levaquin -consider abg Compression frxs T spine -?ortho eval Appreciate consult; will follow with you. Care coordinated w/ Dr. Rivers.
[2017-02-17 14:13] LABS: BUN/CREATININE RATIO 11.2 (10-20); CALCIUM 7.9 mg/dl (8.5-10.1); CREATININE 0.58 mg/dl (0.60-1.20)
[2017-02-17] MEDS: LEVALBUTEROL 0.63MG/3 ML NEB INH SCH ×2 (15:00→19:07)
[2017-02-17] MEDS ORDERED: SODIUM CHLORIDE 3% INJ 100 ML IV ONE (16:00)
[2017-02-17] MEDS: LEVOFLOXACIN / D5W 750 MG in PREMIXED IN D5W 150 ML IV SCH ×2 (17:13→19:10)
[2017-02-17 20:17] LABS: BUN/CREATININE RATIO 11.4 (10-20); CREATININE 0.49 mg/dl (0.60-1.20); POTASSIUM 4.3 mmol/L (3.5-5.1)
[2017-02-17] MEDS ORDERED: ZOLPIDEM TARTRATE 5 MG TAB PO PRN (20:30)
[2017-02-17] MEDS ORDERED: NURSING VERBAL MED ORDER ONE (20:30)
[2017-02-18] VITALS (8 sets, daily range): BP systolic 99–147; BP diastolic 59–86; PULSE 80–105; TEMP 36.4–37; O2SAT 90–98
[2017-02-18] MEDS: LEVALBUTEROL 0.63MG/3 ML NEB INH SCH ×4 (02:15→18:59)
[2017-02-18 07:13] LABS: HEMATOCRIT 38.7 % (37-47); MEAN CELL VOLUME 85.8 fL (80-100); MEAN CORPUSCULAR HEMOGLOBIN 31.7 pg (25-34); MEAN PLATELET VOLUME 9.3 fL (7.4-10.4); PLATELET COUNT 302 K/uL (130-400); RED BLOOD COUNT 4.51 M/uL (4.2-5.4); WHITE BLOOD COUNT 14.25 K/uL (4.8-10.8)
[2017-02-18 07:56] LABS: BUN/CREATININE RATIO 13.3 (10-20); CALCIUM 8.2 mg/dl (8.5-10.1); CREATININE 0.52 mg/dl (0.60-1.20); POTASSIUM 4.2 mmol/L (3.5-5.1)
--- NOTE | 2017-02-18 08:07 | DIAGNOSTIC IMAGING REPORT ---
CHEST 2 VIEWS ROUTINE HISTORY: 76 years-old Female pneumonia follow-up study. COMPARISON: Chest radiograph 02/16/2017, CTA 02/15/2017. TECHNIQUE: Upright AP view of the chest. FINDINGS: Cardiac silhouette is again upper limits of normal. There is atherosclerosis of the aorta. Mild biapical pleural parenchymal scarring without pneumothorax or large pleural effusion. Lungs are hyperinflated with emphysema. Right greater than left subsegmental bibasilar opacities are again noted without change from comparison. Bones are grossly intact. IMPRESSION: 1. Subsegmental bibasilar alveolar opacities are redemonstrated without significant change suggesting persistent pneumonia or atelectasis. 2. Emphysema. The above report was generated using voice recognition software. It may contain grammatical, syntax or spelling errors. Electronically signed by: Jose Cantor M.D. 02/18/2017 8:06 AM Dictated Date/Time: 02/18/2017 8:04 AM
--- NOTE | 2017-02-18 09:19 | Orthopedic Consultation ---
Orthopedic Consultation Date of Consultation: Feb 18, 2017. Attending Physician: Gunner Rivers DO Reason for Consultation: Thoracic pain. Thoracic compression fractures. History of Present Illness This is a pleasant 76-year-old female whose thoracic pain started 3 days ago. No specific accident trauma or fall. It began in the morning. She does have an AKA on the left and does note she has difficult time going down the steps which she did on Wednesday morning prior to her pain starting. She denies it radiating. Denies bowel or bladder changes. She states any type of movement reproduces her pain. She has been trying to find a comfortable position. She denies having pain like this prior to a few days ago. Past Medical/Surgical History Medical Problems: (1) Elevated troponin Status: Acute (2) Hyponatremia Status: Acute (3) Pneumonia Status: Acute (4) Substernal chest pain Status: Acute Family History Diabetes mellitus FH: heart disease Stroke Social History Smoking Status: Former Smoker Marital Status: Housing Status: lives with significant other Occupation Status: retired Allergies Coded Allergies: Antihistamines, Diphenhydramine-typ (Verified Adverse Reaction, Unknown, MAKES HEART RACE, 08/01/15) Home Medications Scheduled Alendronate Sodium (Fosamax), 70 MG PO QMON Amlodipine Besylate (Amlodipine Besylate), 10 MG PO DAILY Aspirin (Aspirin), 325 MG PO QAM Atorvastatin (Atorvastatin Calcium), 40 MG PO DAILY Calcium Carbonate (Calcium), 600 MG PO DAILY Cilostazol (Pletal), 100 MG PO BID Hydrochlorothiazide (Hydrochlorothiazide), 25 MG PO DAILY Lisinopril (Lisinopril), 40 MG PO DAILY Metoprolol Tartrate (Metoprolol Tartrate), 50 MG PO BID Multiple Vitamin (Multivitamin), 1 TAB PO QAM Nitroglycerin (Nitrostat), 0.4 MG UT PRN Gunpowder-3 Fatty Acids (Fish Oil), 1 CAP PO DAILY Current Inpatient Medications Current Inpatient Medications Medications (Trade) Dose Ordered Sig/Emely Route Start Time Stop Time Status Last Admin Dose Admin Ioversol (Optiray 320) 125 ml UD PRN IV 02/15/17 12:45 02/19/17 12:44 Heparin Sodium (Porcine) (Heparin Sq 5000 Unit/0.5ml) 5,000 unit Q12 SQ 02/15/17 21:00 03/17/17 20:59 02/17/17 20:30 5,000 UNIT Acetaminophen (Tylenol Tab) 650 mg Q4H PRN PO 02/15/17 16:00 03/17/17 15:59 02/17/17 09:40 650 MG Al Hydrox/Mg Hydrox/Simethicone (Maalox Max Susp) 15 ml Q4H PRN PO 02/15/17 16:00 03/17/17 15:59 Magnesium Hydroxide (Milk Of Magnesia Susp) 30 ml Q12H PRN PO 02/15/17 16:00 03/17/17 15:59 Ondansetron HCl (Zofran Inj) 4 mg Q6H PRN IV 02/15/17 16:00 03/17/17 15:59 02/16/17 19:43 4 MG Nitroglycerin (Nitrostat Tab) 0.4 mg UD PRN SL 02/15/17 16:00 03/17/17 15:59 Polyethylene (Miralax Powder Packet) 17 gm DAILY PRN PO 02/15/17 16:00 03/17/17 15:59 Aspirin (Ecotrin Tab) 325 mg QAM PO 02/16/17 09:00 03/18/17 08:59 02/17/17 08:50 325 MG Atorvastatin Calcium (Lipitor Tab) 40 mg DAILY PO 02/16/17 09:00 03/18/17 08:59 02/17/17 08:49 40 MG Cilostazol (Pletal Tab) 100 mg BID PO 02/15/17 21:00 03/17/17 20:59 02/17/17 20:26 100 MG Lisinopril (Zestril Tab) 40 mg DAILY PO 02/16/17 09:00 03/18/17 08:59 02/17/17 08:50 40 MG Metoprolol Tartrate (Lopressor Tab) 50 mg BID PO 02/15/17 21:00 03/17/17 20:59 02/17/17 20:25 50 MG Levofloxacin 750 mg/Prmx 150 ml @ 100 mls/hr Q24H IV 02/16/17 16:00 02/21/17 17:29 02/17/17 19:10 100 MLS/HR Lidocaine (Lidoderm Patch 5%) 1 patch DAILY TD 02/15/17 19:00 03/17/17 18:59 02/17/17 08:49 1 PATCH Miscellaneous (Remove Lidoderm Patch) 1 ea DAILY@21 N/A 02/15/17 23:59 03/17/17 23:58 02/17/17 20:39 1 EA Amlodipine Besylate (Norvasc Tab) 5 mg QAM PO 02/17/17 09:00 03/19/17 08:59 02/17/17 09:35 5 MG Potassium Chloride (Klor-Con M10) 40 meq TID PO 02/17/17 14:00 03/18/17 08:59 02/17/17 20:27 40 MEQ Levalbuterol (Xopenex 0.63 Mg/ 3 Ml Neb) 0.63 mg Q6R INH 02/17/17 15:00 03/19/17 14:59 02/18/17 07:40 0.63 MG Zolpidem Tartrate (Ambien Tab) 5 mg HSZ PRN PO 02/17/17 20:30 03/19/17 20:29 02/17/17 20:38 5 MG Gabapentin (Neurontin Cap) 200 mg TID PO 02/18/17 10:00 03/20/17 09:59 Lorazepam (Ativan Inj) 1 mg PRE-TREAT ONCE IV 02/18/17 09:15 02/18/17 09:16 UNV Review of Systems Thoracic pain Physical Exam Date Time Temp Pulse Resp B/P (MAP) Pulse Ox O2 Delivery O2 Flow Rate FiO2 02/18/17 07:40 80 14 95 Room Air 02/18/17 07:06 36.5 102 18 131/80 (97) 96 Room Air 02/18/17 04:04 Room Air 02/18/17 00:01 Room Air 02/17/17 23:35 37.2 91 18 157/81 (106) 94 Room Air 02/17/17 19:37 Room Air 02/17/17 19:08 90 14 94 Room Air 02/17/17 19:03 36.9 97 18 150/85 (106) 91 Room Air 02/17/17 16:13 37.0 83 18 170/83 (112) 91 Room Air 02/17/17 16:00 Room Air 02/17/17 12:00 Room Air 02/17/17 11:20 36.8 73 18 163/83 (109) 95 Room Air General Appearance: no apparent distress Head: normocephalic Eyes: normal inspection ENT: normal ENT inspection Respiratory/Chest: no respiratory distress Cardiovascular: regular rate, rhythm Abdomen/GI: non tender, soft Back: normal inspection Neurologic/Psych: client relationship executive II-XII nml as tested Laboratory Results Last 24 Hours Test 02/17/17 13:15 02/17/17 19:45 02/18/17 06:55 Sodium Level 118 mmol/L 120 mmol/L 120 mmol/L Potassium Level 4.0 mmol/L 4.3 mmol/L 4.2 mmol/L Chloride Level 85 mmol/L 89 mmol/L 90 mmol/L Carbon Dioxide Level 23 mmol/L 23 mmol/L 20 mmol/L Anion Gap 9.0 mmol/L 8.0 mmol/L 10.0 mmol/L Blood Urea Nitrogen 7 mg/dl 6 mg/dl 7 mg/dl Creatinine 0.58 mg/dl 0.49 mg/dl 0.52 mg/dl Est Creatinine Clear Calc Drug Dose 69.3 ml/min 82.0 ml/min 77.3 ml/min Estimated GFR () 104.5 110.5 108.3 Estimated GFR (Non- 90.2 95.3 93.5 BUN/Creatinine Ratio 11.2 11.4 13.3 Random Glucose 196 mg/dl 163 mg/dl 126 mg/dl Calcium Level 7.9 mg/dl 8.0 mg/dl 8.2 mg/dl White Blood Count 14.25 K/uL Red Blood Count 4.51 M/uL Hemoglobin 14.3 g/dL Hematocrit 38.7 % Mean Corpuscular Volume 85.8 fL Mean Corpuscular Hemoglobin 31.7 pg Mean Corpuscular Hemoglobin Concent 37.0 g/dl RDW Standard Deviation 39.2 fL RDW Coefficient of Variation 12.4 % Platelet Count 302 K/uL Mean Platelet Volume 9.3 fL Patient Name: PONCHO DOLAN Unit Number: [id number] Dictated: 02/15/171441 Transcribed: 02/15/171441 JA Printed Date/Time: [~ rep prt dt]/[~ rep prt tm] [~ rep ct labl] - [~ rep ct ivnm] [facility] [place] [address] Dictated: 02/15/17 1442 Transcribed: 02/15/17 1442 JA Printed Date/Time: [~ rep prt dt]/[~ rep prt tm] [~ rep ct labl] - [~ rep ct ivnm] Patient: PONCHO DOLAN Address1: [address] [place] [address] Rec: [id number] Address2: Acct ID: [id number] [facility] Zip: [place] [address] Date: 1940 Sex: F Room/Bed: Ref Phy: Arturo Bermudez M.D. SC: ALOKB Att Phy: Report #: [id number] Kasey Phy: Arturo Bermudez M.D. Test: CXPEA Admit Phy: Piece Meat Trimmer: JOHANNA Interpreting Phy: Jimmie Perales MD Diagnosis: BACK PAIN, COULD NOT MOVE Ordering Phy: Sindy Mccain DO Service Date: 02/15/17 Admit Date: 02/15/17 MNE: [id number] CONF: DICTATED BY: Jimmie Perales MD]] CC: Sindy Mccain, Arturo Cadena M.D. Endcc: [~ rep ct add3]] CT ANGIOGRAPHY OF THE CHEST, PULMONARY EMBOLUS PROTOCOL CLINICAL HISTORY: Chest and back pain. COMPARISON STUDY: Chest radiograph September 12, 2015. TECHNIQUE: Following IV administration of 91 mL of Optiray-320, helical axial images of the chest were obtained utilizing the pulmonary embolus protocol. Maximal intensity projections and sagittal and coronal reformats were viewed on an independent 3D workstation. IV contrast was administered without complication. A dose lowering technique was utilized adhering to the principles of ALARA. CT DOSE: 427.48 mGy.cm FINDINGS: No pulmonary emboli are identified. There is moderate cardiomegaly. There is no pericardial effusion. There is extensive atherosclerotic plaque of the aorta and visualized portions of the upper abdominal vessels. There is no thoracic aortic dissection. No enlarged thoracic nodes are present. Severe emphysema is noted. Note is made of a circumscribed 7 mm right upper lobe nodule shown on image 193 of 318. This may contain fat. Bilateral lower lobe airspace opacity is noted, right greater than left. There is no pneumothorax or pleural effusion. There is a mild T2 compression fracture and a severe T6 compression fracture. There is 5 mm of retropulsion at the T6 level which results in mild to moderate narrowing of the central canal. Visualized portions of the upper abdomen demonstrate trace left perinephric infiltration. IMPRESSION: 1. No pulmonary emboli identified. 2. Bilateral lower lobe airspace opacities, right greater than left. The appearance favors atelectasis although pneumonia could appear similar. 3. Severe emphysema. 4. Circumscribed 7 mm right upper lobe nodule. Possible fat within this lesion raising the possibility of a hamartoma. However, this nodule is indeterminate and a follow-up chest CT in 6 months is recommended to ensure stability. 5. Trace left perinephric infiltration. Correlation with urinalysis is recommended to exclude an infectious process. 6. Severe T6 compression fracture with 5 mm of retropulsion that results in mild to moderate narrowing of the central canal. Mild T8 compression fracture. These fractures are likely subacute to chronic. 7. Moderate cardiomegaly and extensive coronary artery calcification. Electronically signed by: Jimmie Perales M.D. 02/15/2017 3:00 PM Dictated Date/Time: 02/15/2017 2:42 PM The status of this report is Signed. Draft = Not yet reviewed or approved by Radiologist. Signed = Reviewed and approved by Radiologist. <AttendingPhy></AttendingPhy> <FamilyPhy>Arturo Bermudez M.D.</FamilyPhy> < PrimaryPhy>Arturo Bermudez M.D.</PrimaryPhy> <UnitNumber>[id number]</UnitNumber > <VisitNumber>[id number]</VisitNumber> <PatientName>PONCHO DOLAN Vern</ PatientName> <DateOfBirth>1940</DateOfBirth> <Location>[facility]</Location> < ServiceDate>02/15/17</ServiceDate> <MNE>ESINDI</MNE> <OrderingPhy>Sindy Mccain DO</OrderingPhy> <OrderingPhyMNE>f rep ord dr rodriguez</OrderingPhyMNE> < DictatingPhyMNE>f rep dict dr rodriguez</DictatingPhyMNE> <CCListMNE>f rep ct mne</ CCListMNE> <AdmittingPhyMNE>f pt admit dr rodriguez</AdmittingPhyMNE> <AttendingPhyMNE >f pt attend dr rodriguez</AttendingPhyMNE> <ConsultingPhyMNE>f pt consult dr rodriguez</ConsultingPhyMNE> <FamilyPhyMNE>f pt fam dr rodriguez</FamilyPhyMNE> <OtherPhyMNE>f pt other dr rodriguez</OtherPhyMNE> < PrimaryPhyMNE>f pt prim care dr rodriguez</PrimaryPhyMNE> <ReferringPhyMNE>f pt referring dr rodriguez</ReferringPhyMNE> Assessment & Plan Thoracic back pain. At T6 and T8 compression fractures. Plan at this point in time she has a new onset of thoracic pain. CT scan shows T6 and T8 compression fractures although they appear to be subacute to chronic. To further assess the acuity of these fractures I will pursue MRI of the thoracic spine without contrast. This has been reviewed the patient and her . They're comfortable with this plan. We'll make further recommendations upon MRI review. Most likely conservative treatment.
[2017-02-18] MEDS ORDERED: DOBUTamine HCL 12.5 MG/ML 20 ML VIAL ONE (09:35)
[2017-02-18] MEDS ORDERED: ATROPINE SULFATE 0.1 MG/ML 5ML SYR ONE (09:35)
[2017-02-18] MEDS ORDERED: METOPROLOL TARTRATE 1 MG/ML VIAL ONE (09:36)
--- NOTE | 2017-02-18 09:45 | CARDIOLOGY PROGRESS NOTE ---
DATE: 02/18/2017 DATE: 02/18/2017 SUBJECTIVE: Mrs. Florian is resting comfortably in bed without complaints of chest pain or dyspnea. We have discussed the need to proceed with dobutamine stress echocardiogram. OBJECTIVE: VITAL SIGNS: Blood pressure 130/80 with a regular pulse of 80. Respiratory rate is 14. The patient is afebrile at 36.5 degrees Celsius. Saturations 95% on room air. NECK: Supple with full carotid upstrokes. No carotid bruits. Jugular venous pressure is flat at 90 degrees. There is no thyromegaly. CARDIOVASCULAR EXAMINATION: Reveals a regular rhythm with normal S1 and S2. No S3, S4, or murmurs are noted. LUNGS: Clear without rales, rhonchi, or wheezes. ABDOMEN: Soft, nontender without bruits. EXTREMITIES: Reveal intact radial artery pulses bilaterally. Right posterior tibial pulse is nonpalpable. Left-sided AKA noted. No peripheral edema. LABORATORY DATA: CBC notes a hemoglobin of 14.3, hematocrit 38.7, white count 14.2, platelet count 302,000. Electrolytes note a sodium of 120, potassium 4.2, chloride 90, bicarb 20, BUN 7, creatinine 0.52, glucose 126. heat treater head notes sinus rhythm with PACs. IMPRESSIONS AND PLAN: 1. Elevated troponin -- likely secondary to pneumonia and a poor clinical state at time of presentation. Will proceed with dobutamine stress echocardiogram to rule out myocardial ischemia. 2. Hyperdynamic left ventricular systolic function. 3. Hypertension -- with mild left ventricular hypertrophy, and evidence of diastolic dysfunction. Likely cause of elevated troponin at time of presentation. 4. Coronary artery disease -- status post obtuse marginal PCI in 2004 in [place]. 5. Peripheral vascular disease - with a 4.2 x 4.0 cm abdominal aortic aneurysm seen on CT scan in October 2016. History of bilateral iliac stenting in April 2010. 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 6. Hyponatremia. 7. Pneumonia.
[2017-02-18] MEDS ORDERED: LORAZEPAM 2 MG/ML 1 ML VIAL IV SCH (10:00)
--- NOTE | 2017-02-18 10:13 | Progress Note ---
Subjective Date of Service: Feb 18, 2017. Subjective Pt evaluation today including: conversation w/ patient, physical exam, lab review, review of studies, review of inpatient medication list Saw/examined the patient in room 221 She is still c/o back pain which persists with any type of activity Received some pain medications last night which allowed her to get some sleep No chest pain or shortness of breath noted More awake/alert, no disorientation No fevers/chills Problem List Medical Problems: (1) Elevated troponin Status: Acute (2) Hyponatremia Status: Acute (3) Pneumonia Status: Acute (4) Substernal chest pain Status: Acute Review of Systems Constitutional: No fever, No chills Respiratory: No cough, No sputum, No shortness of breath Cardiac: No chest pain Abdomen: No pain, No nausea, No vomiting, No diarrhea Musculoskeletal: + joint pain (back pain) Heme: No abnormal bleeding/bruising Medications Current Inpatient Medications Medications (Trade) Dose Ordered Sig/Emely Route Start Time Stop Time Status Last Admin Dose Admin Ioversol (Optiray 320) 125 ml UD PRN IV 02/15/17 12:45 02/19/17 12:44 Heparin Sodium (Porcine) (Heparin Sq 5000 Unit/0.5ml) 5,000 unit Q12 SQ 02/15/17 21:00 03/17/17 20:59 02/17/17 20:30 5,000 UNIT Acetaminophen (Tylenol Tab) 650 mg Q4H PRN PO 02/15/17 16:00 03/17/17 15:59 02/17/17 09:40 650 MG Al Hydrox/Mg Hydrox/Simethicone (Maalox Max Susp) 15 ml Q4H PRN PO 02/15/17 16:00 03/17/17 15:59 Magnesium Hydroxide (Milk Of Magnesia Susp) 30 ml Q12H PRN PO 02/15/17 16:00 03/17/17 15:59 Ondansetron HCl (Zofran Inj) 4 mg Q6H PRN IV 02/15/17 16:00 03/17/17 15:59 02/16/17 19:43 4 MG Nitroglycerin (Nitrostat Tab) 0.4 mg UD PRN SL 02/15/17 16:00 03/17/17 15:59 Polyethylene (Miralax Powder Packet) 17 gm DAILY PRN PO 02/15/17 16:00 03/17/17 15:59 Aspirin (Ecotrin Tab) 325 mg QAM PO 02/16/17 09:00 03/18/17 08:59 02/17/17 08:50 325 MG Atorvastatin Calcium (Lipitor Tab) 40 mg DAILY PO 02/16/17 09:00 03/18/17 08:59 02/17/17 08:49 40 MG Cilostazol (Pletal Tab) 100 mg BID PO 02/15/17 21:00 03/17/17 20:59 02/17/17 20:26 100 MG Lisinopril (Zestril Tab) 40 mg DAILY PO 02/16/17 09:00 03/18/17 08:59 02/17/17 08:50 40 MG Metoprolol Tartrate (Lopressor Tab) 50 mg BID PO 02/15/17 21:00 03/17/17 20:59 02/17/17 20:25 50 MG Levofloxacin 750 mg/Prmx 150 ml @ 100 mls/hr Q24H IV 02/16/17 16:00 02/21/17 17:29 02/17/17 19:10 100 MLS/HR Lidocaine (Lidoderm Patch 5%) 1 patch DAILY TD 02/15/17 19:00 03/17/17 18:59 02/17/17 08:49 1 PATCH Miscellaneous (Remove Lidoderm Patch) 1 ea DAILY@21 N/A 02/15/17 23:59 03/17/17 23:58 02/17/17 20:39 1 EA Amlodipine Besylate (Norvasc Tab) 5 mg QAM PO 02/17/17 09:00 03/19/17 08:59 02/17/17 09:35 5 MG Potassium Chloride (Klor-Con M10) 40 meq TID PO 02/17/17 14:00 03/18/17 08:59 02/17/17 20:27 40 MEQ Levalbuterol (Xopenex 0.63 Mg/ 3 Ml Neb) 0.63 mg Q6R INH 02/17/17 15:00 03/19/17 14:59 02/18/17 07:40 0.63 MG Zolpidem Tartrate (Ambien Tab) 5 mg HSZ PRN PO 02/17/17 20:30 03/19/17 20:29 02/17/17 20:38 5 MG Gabapentin (Neurontin Cap) 200 mg TID PO 02/18/17 10:00 03/20/17 09:59 Lorazepam (Ativan Inj) 1 mg PRE-TREAT@1000 IV 02/18/17 10:00 02/18/17 23:59 Objective Vital Signs Date Time Temp Pulse Resp B/P (MAP) Pulse Ox O2 Delivery O2 Flow Rate FiO2 02/18/17 07:40 80 14 95 Room Air 02/18/17 07:06 36.5 102 18 131/80 (97) 96 Room Air 02/18/17 04:04 Room Air 02/18/17 00:01 Room Air 02/17/17 23:35 37.2 91 18 157/81 (106) 94 Room Air 02/17/17 19:37 Room Air 02/17/17 19:08 90 14 94 Room Air 02/17/17 19:03 36.9 97 18 150/85 (106) 91 Room Air 02/17/17 16:13 37.0 83 18 170/83 (112) 91 Room Air 02/17/17 16:00 Room Air 02/17/17 12:00 Room Air 02/17/17 11:20 36.8 73 18 163/83 (109) 95 Room Air Physical Exam General Appearance: + mild distress (secondary to back pain) Respiratory/Chest: chest non-tender, lungs clear, normal breath sounds, no respiratory distress, no accessory muscle use Cardiovascular: + tachycardia Abdomen: normal bowel sounds, non tender, soft Extremities: + pertinent finding (L AKA; painful and decreased ROM of back) Laboratory Results Last 24 Hours Test 02/17/17 13:15 02/17/17 19:45 02/18/17 06:55 Sodium Level 118 mmol/L 120 mmol/L 120 mmol/L Potassium Level 4.0 mmol/L 4.3 mmol/L 4.2 mmol/L Chloride Level 85 mmol/L 89 mmol/L 90 mmol/L Carbon Dioxide Level 23 mmol/L 23 mmol/L 20 mmol/L Anion Gap 9.0 mmol/L 8.0 mmol/L 10.0 mmol/L Blood Urea Nitrogen 7 mg/dl 6 mg/dl 7 mg/dl Creatinine 0.58 mg/dl 0.49 mg/dl 0.52 mg/dl Est Creatinine Clear Calc Drug Dose 69.3 ml/min 82.0 ml/min 77.3 ml/min Estimated GFR () 104.5 110.5 108.3 Estimated GFR (Non- 90.2 95.3 93.5 BUN/Creatinine Ratio 11.2 11.4 13.3 Random Glucose 196 mg/dl 163 mg/dl 126 mg/dl Calcium Level 7.9 mg/dl 8.0 mg/dl 8.2 mg/dl White Blood Count 14.25 K/uL Red Blood Count 4.51 M/uL Hemoglobin 14.3 g/dL Hematocrit 38.7 % Mean Corpuscular Volume 85.8 fL Mean Corpuscular Hemoglobin 31.7 pg Mean Corpuscular Hemoglobin Concent 37.0 g/dl RDW Standard Deviation 39.2 fL RDW Coefficient of Variation 12.4 % Platelet Count 302 K/uL Mean Platelet Volume 9.3 fL Assessment and Plan This is a 76yo female with a PMH of CAD (s/p stent in ), HTN, HLD, AAA ( without rupture), carotid stenosis, PVD (s/p L AKA in 09/10) and osteoporosis who presents with back and chest pain since this morning Metabolic Encephalopathy secondary to PNA 02/18 continue Levaquin; today is day #4 02/17 will continue Levaquin for now Legionella pending 02/16 Plan today is to continue Levaquin give IVFs white count improving clinically improving 02/15 -Chest thorax CTA with bilateral lower lobe airspace opacities, right greater than left. The appearance favors atelectasis although pneumonia could appear similar -No pulmonary emboli identified -Leukocytosis of 22.53 -Endorses CP. Denies SOB, fever, chills -Not on home O2, but became hypoxic at 87% on room air. Satting 98% on 3L NC -Started on Levoquin Elevated Troponin 02/18 unlikely related to ischemia or cardiac issues likely related to pneumonia will obtain dobutamine stress this morning 02/17 appreciate cardiology input will need dobutamine stress prior to discharge ; tentatively planned for , 02/18 02/16 elevated troponin level, increasing to 0.9 likely secondary to infection, dehydration replace K and Mg echo and EKG with no significant change cardiology consulted for further input Back pain 02/18 appreciate ortho input awaiting spine MRI; likely conservative management 02/17 added PT/OT lidocaine patch if pain does not improve, will add low dose narcotic 02/16 lidocaine patch for now avoiding narcotics secondary to encephalopathy 02/15 -No history of back pain -Chest thorax CTA with sub-acute to chronic compression fractures: -Severe T6 compression fracture with retropulsion that results in mild to mod narrowing of the central canal -Mild T8 compression fracture. -History of osteoporosis. On alendronate, calcium -Lidoderm patch for pain control Hypotonic hyponatremia: 02/18 hold IVFs with fluid restriction, Na trended down to 118, now up to 120 02/17 stop IVFs nephrology consulted for further input 02/16 patient with chronic hyponatremia, baseline is around 129-130 currently 125 low urine osm, low serum osm will give some IVFs, and monitor stop HCTZ 02/15 -Confusion, nausea & vomiting -Na of 122 on admission -Serum osm low at 267 -Urine osm pending -Repeat NA pending -Held HCTZ Electrolyte abnormalities - resolved replacing K and Mg HTN: -Stable -Continue metoprolol and lisinopril -Held HCTZ in setting of hyponatremia HLD: -Continue atorvastatin PVD (s/p L AKA in 09/10): -Follows with Dr. Alexandre with vascular surgery -Continue Pletal BID -Denies intermittent claudication but also does not ambulate with prosthetic. Uses wheelchair Carotid stenosis: -Stable -Continue following with PCP and out-pt cardio DVT Ppx: Heparin SQ Code status: FULL PCP: Lara Dispo: Discharge planning ordered
[2017-02-18] MEDS: CILOSTAZOL 100 MG TAB PO SCH ×2 (10:45→19:53)
[2017-02-18] MEDS: AMLODIPINE BESYLATE 5 MG TAB PO SCH (10:45)
[2017-02-18] MEDS: LISINOPRIL 40 MG TAB PO SCH (10:45)
[2017-02-18] MEDS: ATORVASTATIN 40 MG TAB PO SCH (10:46)
[2017-02-18] MEDS: METOPROLOL TARTRATE 50 MG TAB PO SCH ×2 (10:46→19:54)
[2017-02-18] MEDS: ASPIRIN 325 MG ECTAB PO SCH (10:46)
[2017-02-18] MEDS: LIDODERM (LIDOCAINE) PATCH 5% TD SCH (10:47)
[2017-02-18] MEDS: POTASSIUM CHLORIDE 10 MEQ TABCR PO SCH ×3 (10:47→19:56)
[2017-02-18] MEDS: ACETAMINOPHEN 325 MG TAB PO PRN ×2 (10:48→21:35)
[2017-02-18] MEDS: HEPARIN SOD 5000 UNIT/0.5 ML CARP SQ SCH ×2 (10:52→21:58)
[2017-02-18] MEDS: ONDANSETRON INJ 2 MG/ML 2 ML VIAL IV PRN (10:54)
[2017-02-18] MEDS ORDERED: FUROSEMIDE INJ 20 MG in SYRINGE 0 ML IV ONE (11:30)
[2017-02-18 11:36] LABS: LEGIONELLA ANTIGEN NOT DETECTED (NOT DETECTED)
[2017-02-18] MEDS: GABAPENTIN 100 MG CAP PO SCH ×3 (11:39→19:50)
[2017-02-18] MEDS ORDERED: FUROSEMIDE INJ 20 MG in SYRINGE 0 ML IV SCH (14:00)
[2017-02-18 14:58] LABS: BUN/CREATININE RATIO 14.5 (10-20); CALCIUM 8.2 mg/dl (8.5-10.1); CREATININE 0.49 mg/dl (0.60-1.20)
--- NOTE | 2017-02-18 15:24 | DIAGNOSTIC IMAGING REPORT ---
THORACIC SPINE WITHOUT HISTORY: 76 years-old Female THORACIC PAIN, T6 [address]--CHECK ACUITY . Compression deformities of the T6 and T8 vertebral bodies are noted on comparison chest CT. Follow-up study. COMPARISON: CT of the chest 02/15/2017 TECHNIQUE: Multiplanar multisequence MRI of the thoracic spine was obtained without contrast. FINDINGS: Large [id number] raker buffing wheel localizer images demonstrate no gross abnormality of the head, neck or chest. Severe compression deformity involving the T6 vertebral body is again seen with approximately 50% loss of anterior and posterior interbody height. There is mild bone marrow edema at T6 and also at T5. Bone marrow edema at T6 extends into the posterior elements seen nicely on the sagittal STIR images. Additionally, there is mild prevertebral soft tissue edema at these levels. 5 mm retropulsion of the posterior endplate T6 causes associated moderate central canal narrowing. The axial images at this level are limited secondary to patient motion. There also appears to be mild bilateral foraminal narrowing at this level. The previously described compression deformity at T8 appears chronic. No additional focal bone marrow edema or compression deformities are identified. Multilevel endplate spurring is seen without significant central canal or foraminal narrowing otherwise noted within the thoracic spine. Multilevel intervertebral disc space narrowing and posterior disc osteophyte complex formation involves the cervical spine resulting in least moderate central canal narrowing at C5-C6. No gross intrathoracic or intra-abdominal abnormality identified. There is 2 mm anterolisthesis L5 on S1, likely on a degenerative basis. Facet arthrosis involves lower lumbar spine. IMPRESSION: 1. Mildly limited study secondary to patient motion. 2. Mild bone marrow edema is seen within an acute to subacute severe compression deformity of the T6 vertebral body with approximately 50% loss of height both anteriorly and posteriorly. Associated bone marrow edema extends into the posterior elements without definite underlying neoplasm identified. This is likely an insufficiency fracture without history of cancer. 5 mm retropulsion causes moderate central canal and mild bilateral foraminal narrowing. 3. Mild bone marrow edema involves the T5 vertebral body as well without associated compression deformity at this time. 4. Minimal superior compression of the T8 vertebral body appears chronic. The above report was generated using voice recognition software. It may contain grammatical, syntax or spelling errors. Electronically signed by: Jose Cantor M.D. 02/18/2017 3:23 PM Dictated Date/Time: 02/18/2017 3:14 PM
[2017-02-18] MEDS: LEVOFLOXACIN / D5W 750 MG in PREMIXED IN D5W 150 ML IV SCH (15:57)
--- NOTE | 2017-02-18 16:50 | DOBUTAMINE ECHO ---
*NOTICE TO RECEIVING [employer] This information is strictly Confidential and protected under [place] law. [place] law prohibits you from making any further disclosure of this information unless further disclosure is expressly permitted by the written consent of the person to whom it pertains or is authorized by law. A general authorization for the release of medical or other information is not sufficient for this purpose. Hospital accepts no responsibility if the information is made available to any other person, INCLUDING THE PATIENT. Interpretation Summary * Name: PONCHO DOLAN Study Date: 02/18/2017 08:58 AM BP: 152/84 mmHg * Patient Location: C.2T\S\E221\S\1 HR: 111 * : 1940 (M/d/yy) Gender: Female Height: 63 in * Age: 76 yrs Ethnicity: CA Weight: 130 lb * Ordering Physician: Gunner Rivers * Performed By: Lyn Hernandez * * Reason For Study: CHEST PAIN * BSA: 1.6 m2 * -- Conclusions -- * Dobutamine Stress Echo: * 1. Negative Dobutamine stress echo for ischemia at 97% MPHR. * 2. Negative Dobutamine ECG for ischemia at 97 % MPHR. * 3. Hypertensive blood pressure response. * 4. Atrial triplet * 5. No chest pain reported. * 6. Technically difficult study, enhanced with IV Definity. Procedure Details * DOBUTAMINE ECHO, CPT#05794 * A contrast injection of Definity was performed to improve assessment of LV function. * Contrast was injected into an intravenous site in the right arm. * One vial of Definity ultrasound contrast was diluted in normal saline to a total volume of 10 ml. A total of '7' ml of solution was administered during imaging. * Lot # [id number] of Definity utilized for procedure. * Expiration date 02/12. * The attending nurse who injected the contrast agent was JERRELL MOON RN. Left Ventricle * The left ventricle is normal in size. * There is normal left ventricular wall thickness. * The left ventricle is hyperdynamic. * The left ventricular ejection fraction increases normally with stress. The left ventricular end-systolic cavity size reduces post-stress (normal response). The left ventricular wall motion with stress is normal. * Resting wall motion: Normal. Stress wall motion: Appropriate increase in Left ventricular systolic function and decrease in cavity size. No stress induced segmental wall motion abnormalities. Stress Parameters * Sinus tachycardia [address] abnormality. * Stress ECG: No ST changes. No arrhythmias. * Atrial triplet. * Rest heart rate was '111' BPM. * Rest blood pressure was '152/84' * Maximum heart rate achieved was 141 bpm. * Maximum heart rate was 97 % of maximum age-predicted heart rate. * Maximum blood pressure was '206/90' * Maximum Dobutamine infusion rate was '20' mcg/kg/min. * Dobutamine infusion was terminated due to achieving target heart rate * A total of 2.5 mg of IV Metoprolol was administered to reverse Dobutamine-induced tachycardia. * Patient had back pain and shoulder pain before and during test making her heart rate high to begin with. * The patient exhibited a hypertensive response with stress. MMode 2D Measurements and Calculations IVSd 1.0 cm LVIDd 4.1 cm LVPWd 0.88 cm IVS/LVPW 1.1 EDV(Teich) 74.2 ml EDV(cubed) 68.9 ml LV mass(C)d 121.8 grams LV mass(C)dI 75.7 grams/m\S\2 LVAd ap4 19.7 cm\S\2 LVLd ap4 6.4 cm EDV(MOD-sp4) 51.2 ml EDV(sp4-el) 51.7 ml LVAs ap4 11.6 cm\S\2 LVLs ap4 5.5 cm ESV(MOD-sp4) 20.6 ml ESV(sp4-el) 20.7 ml EF(MOD-sp4) 59.7 % EF(sp4-el) 60.0 % LVAd ap2 23.5 cm\S\2 LVLd ap2 6.6 cm EDV(MOD-sp2) 69.1 ml EDV(sp2-el) 70.7 ml LVAs ap2 11.8 cm\S\2 LVLs ap2 5.7 cm ESV(MOD-sp2) 19.5 ml ESV(sp2-el) 20.5 ml EF(MOD-sp2) 71.7 % EF(sp2-el) 71.0 % LVLd %diff 3.5 % EDV(MOD-bp) 60.3 ml LVLs %diff 3.7 % ESV(MOD-bp) 19.8 ml EF(MOD-bp) 67.1 % SV(MOD-sp4) 30.5 ml SI(MOD-sp4) 19.0 ml/m\S\2 SV(MOD-sp2) 49.6 ml SI(MOD-sp2) 30.8 ml/m\S\2 SV(MOD-bp) 40.5 ml SI(MOD-bp) 25.1 ml/m\S\2 SV(sp4-el) 31.0 ml SI(sp4-el) 19.3 ml/m\S\2 SV(sp2-el) 50.2 ml SI(sp2-el) 31.2 ml/m\S\2
--- NOTE | 2017-02-18 17:02 | Nephrology Progress Note ---
Nephrology Progress Note Date of Service: Feb 18, 2017. Subjective c/o back pain and N; no dyspnea; at bedside; no obvious confusion; poor po d/t N; seen on rounds this am 10am and followed through day Objective Date Time Temp Pulse Resp B/P (MAP) Pulse Ox O2 Delivery O2 Flow Rate FiO2 02/18/17 15:33 36.5 93 18 136/76 (96) 95 Room Air 02/18/17 14:19 84 14 95 Room Air 02/18/17 12:00 Room Air 02/18/17 11:54 36.4 80 18 147/86 (106) 98 Room Air 02/18/17 08:00 Room Air 02/18/17 07:40 80 14 95 Room Air 02/18/17 07:06 36.5 102 18 131/80 (97) 96 Room Air 02/18/17 04:04 Room Air 02/18/17 00:01 Room Air 02/17/17 23:35 37.2 91 18 157/81 (106) 94 Room Air 02/17/17 19:37 Room Air 02/17/17 19:08 90 14 94 Room Air 02/17/17 19:03 36.9 97 18 150/85 (106) 91 Room Air Physical Exam: sitting up in bed, on RA, oriented x 3 eomi dry mm supple neck RRR; no edema very diminished air mvt bl marysol bl bases; no crackles soft NT abd; no schmidt L aka, no cyanosis boggs, fluent speech Current Inpatient Medications Medications (Trade) Dose Ordered Sig/Emely Route Start Time Stop Time Status Last Admin Dose Admin Ioversol (Optiray 320) 125 ml UD PRN IV 02/15/17 12:45 02/19/17 12:44 Heparin Sodium (Porcine) (Heparin Sq 5000 Unit/0.5ml) 5,000 unit Q12 SQ 02/15/17 21:00 03/17/17 20:59 02/18/17 10:52 5,000 UNIT Acetaminophen (Tylenol Tab) 650 mg Q4H PRN PO 02/15/17 16:00 03/17/17 15:59 02/18/17 10:48 650 MG Al Hydrox/Mg Hydrox/Simethicone (Maalox Max Susp) 15 ml Q4H PRN PO 02/15/17 16:00 03/17/17 15:59 Magnesium Hydroxide (Milk Of Magnesia Susp) 30 ml Q12H PRN PO 02/15/17 16:00 03/17/17 15:59 Ondansetron HCl (Zofran Inj) 4 mg Q6H PRN IV 02/15/17 16:00 03/17/17 15:59 02/18/17 10:54 4 MG Nitroglycerin (Nitrostat Tab) 0.4 mg UD PRN SL 02/15/17 16:00 03/17/17 15:59 Polyethylene (Miralax Powder Packet) 17 gm DAILY PRN PO 02/15/17 16:00 03/17/17 15:59 Aspirin (Ecotrin Tab) 325 mg QAM PO 02/16/17 09:00 03/18/17 08:59 02/18/17 10:46 325 MG Atorvastatin Calcium (Lipitor Tab) 40 mg DAILY PO 02/16/17 09:00 03/18/17 08:59 02/18/17 10:46 40 MG Cilostazol (Pletal Tab) 100 mg BID PO 02/15/17 21:00 03/17/17 20:59 02/18/17 10:45 100 MG Lisinopril (Zestril Tab) 40 mg DAILY PO 02/16/17 09:00 03/18/17 08:59 02/18/17 10:45 40 MG Metoprolol Tartrate (Lopressor Tab) 50 mg BID PO 02/15/17 21:00 03/17/17 20:59 02/18/17 10:46 50 MG Levofloxacin 750 mg/Prmx 150 ml @ 100 mls/hr Q24H IV 02/16/17 16:00 02/21/17 17:29 02/18/17 15:57 100 MLS/HR Lidocaine (Lidoderm Patch 5%) 1 patch DAILY TD 02/15/17 19:00 03/17/17 18:59 02/18/17 10:47 1 PATCH Miscellaneous (Remove Lidoderm Patch) 1 ea DAILY@21 N/A 02/15/17 23:59 03/17/17 23:58 02/17/17 20:39 1 EA Amlodipine Besylate (Norvasc Tab) 5 mg QAM PO 02/17/17 09:00 03/19/17 08:59 02/18/17 10:45 5 MG Potassium Chloride (Klor-Con M10) 40 meq TID PO 02/17/17 14:00 03/18/17 08:59 02/18/17 13:57 40 MEQ Levalbuterol (Xopenex 0.63 Mg/ 3 Ml Neb) 0.63 mg Q6R INH 02/17/17 15:00 03/19/17 14:59 02/18/17 14:18 0.63 MG Zolpidem Tartrate (Ambien Tab) 5 mg HSZ PRN PO 02/17/17 20:30 03/19/17 20:29 02/17/17 20:38 5 MG Gabapentin (Neurontin Cap) 200 mg TID PO 02/18/17 10:00 03/20/17 09:59 02/18/17 13:57 200 MG Lorazepam (Ativan Inj) 1 mg PRE-TREAT@1000 IV 02/18/17 10:00 02/18/17 23:59 02/18/17 11:39 1 MG Furosemide 20 mg/ Syringe 2 ml @ 4 mls/min TID@0900,1400,2100 IV 02/18/17 14:00 03/20/17 13:59 02/18/17 13:57 4 MLS/MIN Fentanyl (Duragesic Patch) 12 mcg Q72H TD 02/18/17 17:00 03/04/17 16:59 Miscellaneous (Fentanyl Patch Remove & Waste) 1 ea Q3D N/A 02/21/17 16:59 03/23/17 16:58 Miscellaneous Information (Check Fentanyl Patch Placement) 1 ea QS N/A 02/19/17 00:00 03/21/17 00:00 Last 24 Hours Test 02/17/17 19:45 02/18/17 06:55 02/18/17 13:51 Sodium Level 120 mmol/L 120 mmol/L 118 mmol/L Potassium Level 4.3 mmol/L 4.2 mmol/L 4.0 mmol/L Chloride Level 89 mmol/L 90 mmol/L 88 mmol/L Carbon Dioxide Level 23 mmol/L 20 mmol/L 21 mmol/L Anion Gap 8.0 mmol/L 10.0 mmol/L 10.0 mmol/L Blood Urea Nitrogen 6 mg/dl 7 mg/dl 7 mg/dl Creatinine 0.49 mg/dl 0.52 mg/dl 0.49 mg/dl Est Creatinine Clear Calc Drug Dose 82.0 ml/min 77.3 ml/min 82.0 ml/min Estimated GFR () 110.5 108.3 110.5 Estimated GFR (Non- 95.3 93.5 95.3 BUN/Creatinine Ratio 11.4 13.3 14.5 Random Glucose 163 mg/dl 126 mg/dl 126 mg/dl Calcium Level 8.0 mg/dl 8.2 mg/dl 8.2 mg/dl White Blood Count 14.25 K/uL Red Blood Count 4.51 M/uL Hemoglobin 14.3 g/dL Hematocrit 38.7 % Mean Corpuscular Volume 85.8 fL Mean Corpuscular Hemoglobin 31.7 pg Mean Corpuscular Hemoglobin Concent 37.0 g/dl RDW Standard Deviation 39.2 fL RDW Coefficient of Variation 12.4 % Platelet Count 302 K/uL Mean Platelet Volume 9.3 fL Assessment & Plan 76 y/o F w/ daily EtOH use, severe emphysema not on home 02/inhalers, HTN, CAD and severe PVD on full dose daily asa, osteoporosis admitted 02/15 with confusion , severe back/chest pain, presenting sNa 122, K 2.2. 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 as well as low solute diet in setting of chronic EtOH use and hctz daily and uncontrolled pain can also have a role >sodium improved to 125 at first but dropped to high teens; admission urine more consistent w/ volume depletion -cont to hold hctz -suspect ASA full dose is obligate d/t PVD -keep K at about 4 >> f/u repeat bmp at 1300 today; replete po if possible -goal SBP for am is 125 -reluctant to use salt tabs d/t HTN ->cont increased K suppls at 40 mEq tid -control pain/ N either of which worsen hypoNa >limited fluids to 1.2L daily -started trial of lasix late morning today >given worsening sodium in afternoon 02/18, place brayan, start NS w/ 20 mEq/L K at 125 mL hourly and increase lasix to qid IV 20 mg -recheck bmp 2000 stat Hypomagnesemia -ck at 2000; replete po if possible HTN and elevated troponin -cont ACEI, CCB, BB -cardiology f/u as indicated > DSE pendint -?role for EtOH Hypoxia, PNA -on levaquin -consider abg Compression frxs T spine -f/u ortho recs Appreciate consult; will follow with you.
[2017-02-18] MEDS: NSS + 20MEQ KCL 1000ML 1,000 ML IV SCH (17:48)
[2017-02-18] MEDS: FUROSEMIDE INJ 20 MG in SYRINGE 0 ML IV SCH ×2 (17:49→21:34)
[2017-02-18] MEDS: FENTANYL 12 MCG/HR TDSY TD SCH (18:11)
[2017-02-18] MEDS: BOOST VANILLA PO SCH ×2 (20:05)
[2017-02-18 21:56] LABS: BUN/CREATININE RATIO 15.8 (10-20); CALCIUM 7.7 mg/dl (8.5-10.1); CREATININE 0.62 mg/dl (0.60-1.20); MAGNESIUM 1.5 mg/dl (1.8-2.4); POTASSIUM 4.4 mmol/L (3.5-5.1)
[2017-02-18] MEDS ORDERED: MAGNESIUM SULFATE 1GM / D5W 1 GM in PREMIXED IN D5W 100 ML IV STA (22:34)
[2017-02-18] MEDS: CHECK FENTANYL PATCH PLACEMENT SCH (23:29)
[2017-02-19] VITALS (11 sets, daily range): BP systolic 93–146; BP diastolic 57–78; PULSE 72–102; TEMP 36.5–37.1; O2SAT 90–95
[2017-02-19] MEDS: LEVALBUTEROL 0.63MG/3 ML NEB INH SCH ×4 (01:23→18:56)
[2017-02-19] MEDS: NSS + 20MEQ KCL 1000ML 1,000 ML IV SCH ×4 (03:15→22:41)
[2017-02-19] MEDS: ACETAMINOPHEN 325 MG TAB PO PRN (03:25)
[2017-02-19 05:22] LABS: HEMATOCRIT 35.7 % (37-47); MEAN CELL VOLUME 86.7 fL (80-100); MEAN CORPUSCULAR HEMOGLOBIN 31.3 pg (25-34); MEAN CORPUSCULAR HGB CONC 36.1 g/dl (32-36); MEAN PLATELET VOLUME 8.7 fL (7.4-10.4); PLATELET COUNT 251 K/uL (130-400); RED BLOOD COUNT 4.12 M/uL (4.2-5.4); WHITE BLOOD COUNT 9.95 K/uL (4.8-10.8)
[2017-02-19 05:52] LABS: BUN/CREATININE RATIO 16.5 (10-20); CREATININE 0.8 mg/dl (0.60-1.20); MAGNESIUM 2.2 mg/dl (1.8-2.4); POTASSIUM 4.9 mmol/L (3.5-5.1)
[2017-02-19] MEDS: FUROSEMIDE INJ 20 MG in SYRINGE 0 ML IV SCH (08:02)
[2017-02-19] MEDS: CHECK FENTANYL PATCH PLACEMENT SCH ×3 (08:03→23:34)
[2017-02-19] MEDS: ASPIRIN 325 MG ECTAB PO SCH (08:03)
[2017-02-19] MEDS: ATORVASTATIN 40 MG TAB PO SCH (08:03)
[2017-02-19] MEDS: AMLODIPINE BESYLATE 5 MG TAB PO SCH (08:03)
[2017-02-19] MEDS: POTASSIUM CHLORIDE 10 MEQ TABCR PO SCH ×2 (08:04→20:39)
[2017-02-19] MEDS: CILOSTAZOL 100 MG TAB PO SCH ×2 (08:04→20:40)
[2017-02-19] MEDS: LISINOPRIL 40 MG TAB PO SCH (08:05)
[2017-02-19] MEDS: GABAPENTIN 100 MG CAP PO SCH ×3 (08:05→20:40)
[2017-02-19] MEDS: LIDODERM (LIDOCAINE) PATCH 5% TD SCH (08:13)
[2017-02-19] MEDS: HEPARIN SOD 5000 UNIT/0.5 ML CARP SQ SCH ×2 (08:13→20:41)
[2017-02-19] MEDS: BOOST VANILLA PO SCH ×2 (08:16)
[2017-02-19] MEDS: METOPROLOL TARTRATE 50 MG TAB PO SCH ×2 (09:00→20:39)
--- NOTE | 2017-02-19 09:58 | Progress Note ---
Subjective Date of Service: Feb 19, 2017. Subjective Pt evaluation today including: conversation w/ patient, physical exam, lab review, review of studies, review of inpatient medication list Saw/examined the patient in room 221 Back pain persists; did get sleep with fentanyl patch, but pain with any type of movement No chest pain/shortness of breath Problem List Medical Problems: (1) Elevated troponin Status: Acute (2) Hyponatremia Status: Acute (3) Pneumonia Status: Acute (4) Substernal chest pain Status: Acute Review of Systems Respiratory: No shortness of breath Cardiac: No chest pain Abdomen: No pain, No nausea, No vomiting, No diarrhea Musculoskeletal: + joint pain (back pain) Medications Current Inpatient Medications Medications (Trade) Dose Ordered Sig/Emely Route Start Time Stop Time Status Last Admin Dose Admin Ioversol (Optiray 320) 125 ml UD PRN IV 02/15/17 12:45 02/19/17 12:44 Heparin Sodium (Porcine) (Heparin Sq 5000 Unit/0.5ml) 5,000 unit Q12 SQ 02/15/17 21:00 03/17/17 20:59 02/19/17 08:13 5,000 UNIT Acetaminophen (Tylenol Tab) 650 mg Q4H PRN PO 02/15/17 16:00 03/17/17 15:59 02/19/17 03:25 650 MG Al Hydrox/Mg Hydrox/Simethicone (Maalox Max Susp) 15 ml Q4H PRN PO 02/15/17 16:00 03/17/17 15:59 Magnesium Hydroxide (Milk Of Magnesia Susp) 30 ml Q12H PRN PO 02/15/17 16:00 03/17/17 15:59 Ondansetron HCl (Zofran Inj) 4 mg Q6H PRN IV 02/15/17 16:00 03/17/17 15:59 02/18/17 10:54 4 MG Nitroglycerin (Nitrostat Tab) 0.4 mg UD PRN SL 02/15/17 16:00 03/17/17 15:59 Polyethylene (Miralax Powder Packet) 17 gm DAILY PRN PO 02/15/17 16:00 03/17/17 15:59 Aspirin (Ecotrin Tab) 325 mg QAM PO 02/16/17 09:00 03/18/17 08:59 02/19/17 08:03 325 MG Atorvastatin Calcium (Lipitor Tab) 40 mg DAILY PO 02/16/17 09:00 03/18/17 08:59 02/19/17 08:03 40 MG Cilostazol (Pletal Tab) 100 mg BID PO 02/15/17 21:00 03/17/17 20:59 02/19/17 08:04 100 MG Lisinopril (Zestril Tab) 40 mg DAILY PO 02/16/17 09:00 03/18/17 08:59 02/19/17 08:05 40 MG Metoprolol Tartrate (Lopressor Tab) 50 mg BID PO 02/15/17 21:00 03/17/17 20:59 02/19/17 09:00 50 MG Levofloxacin 750 mg/Prmx 150 ml @ 100 mls/hr Q24H IV 02/16/17 16:00 02/21/17 17:29 02/18/17 15:57 100 MLS/HR Lidocaine (Lidoderm Patch 5%) 1 patch DAILY TD 02/15/17 19:00 03/17/17 18:59 02/19/17 08:13 1 PATCH Miscellaneous (Remove Lidoderm Patch) 1 ea DAILY@21 N/A 02/15/17 23:59 03/17/17 23:58 02/18/17 19:49 1 EA Levalbuterol (Xopenex 0.63 Mg/ 3 Ml Neb) 0.63 mg Q6R INH 02/17/17 15:00 03/19/17 14:59 02/19/17 06:57 0.63 MG Zolpidem Tartrate (Ambien Tab) 5 mg HSZ PRN PO 02/17/17 20:30 03/19/17 20:29 02/17/17 20:38 5 MG Gabapentin (Neurontin Cap) 200 mg TID PO 02/18/17 10:00 03/20/17 09:59 02/19/17 08:05 200 MG Fentanyl (Duragesic Patch) 12 mcg Q72H TD 02/18/17 17:00 03/04/17 16:59 02/18/17 18:11 12 MCG Miscellaneous (Fentanyl Patch Remove & Waste) 1 ea Q3D N/A 02/21/17 16:59 03/23/17 16:58 Miscellaneous Information (Check Fentanyl Patch Placement) 1 ea QS N/A 02/19/17 00:00 03/21/17 00:00 02/19/17 08:03 1 EA Potassium Chloride/Sodium Chloride 1,000 ml @ 150 mls/hr Q6H40M IV 02/18/17 17:00 03/20/17 16:59 02/19/17 08:02 125 MLS/HR Enteral Nutritional Formula (Boost) 1 can BID PO 02/18/17 21:00 03/20/17 20:59 02/19/17 08:16 1 CAN Furosemide 40 mg/ Syringe 4 ml @ 4 mls/min QID IV 02/19/17 13:00 03/20/17 13:59 Potassium Chloride (Klor-Con M10) 40 meq BID PO 02/19/17 21:00 03/18/17 20:59 Objective Vital Signs Date Time Temp Pulse Resp B/P (MAP) Pulse Ox O2 Delivery O2 Flow Rate FiO2 02/19/17 08:00 Room Air 02/19/17 07:31 36.8 102 17 146/78 (100) 90 Room Air 02/19/17 06:57 81 14 93 Room Air 02/19/17 04:00 Room Air 02/19/17 03:16 37.1 101 19 112/74 (87) 93 Room Air 02/19/17 00:00 Room Air 02/18/17 23:15 36.9 84 19 99/59 (72) 90 Room Air 02/18/17 20:00 Room Air 02/18/17 19:30 37.0 105 20 118/77 (91) 97 Room Air 02/18/17 19:00 84 14 93 Room Air 02/18/17 16:00 Room Air 02/18/17 15:33 36.5 93 18 136/76 (96) 95 Room Air 02/18/17 14:19 84 14 95 Room Air 02/18/17 12:00 Room Air 02/18/17 11:54 36.4 80 18 147/86 (106) 98 Room Air Physical Exam General Appearance: no apparent distress Respiratory/Chest: lungs clear, normal breath sounds, no respiratory distress, no accessory muscle use Cardiovascular: regular rate, rhythm, no edema, no murmur Abdomen: normal bowel sounds, non tender, soft Extremities: + pertinent finding (s/p L AKA) Laboratory Results Last 24 Hours Test 02/18/17 13:51 02/18/17 20:56 02/19/17 05:00 02/19/17 05:15 Sodium Level 118 mmol/L 119 mmol/L 122 mmol/L Potassium Level 4.0 mmol/L 4.4 mmol/L 4.9 mmol/L Chloride Level 88 mmol/L 90 mmol/L 94 mmol/L Carbon Dioxide Level 21 mmol/L 21 mmol/L 22 mmol/L Anion Gap 10.0 mmol/L 7.0 mmol/L 6.0 mmol/L Blood Urea Nitrogen 7 mg/dl 10 mg/dl 13 mg/dl Creatinine 0.49 mg/dl 0.62 mg/dl 0.80 mg/dl Est Creatinine Clear Calc Drug Dose 82.0 ml/min 64.8 ml/min 50.2 ml/min Estimated GFR () 110.5 102.2 83.6 Estimated GFR (Non- 95.3 88.2 72.1 BUN/Creatinine Ratio 14.5 15.8 16.5 Random Glucose 126 mg/dl 157 mg/dl 108 mg/dl Calcium Level 8.2 mg/dl 7.7 mg/dl 8.0 mg/dl Magnesium Level 1.5 mg/dl 2.2 mg/dl White Blood Count 9.95 K/uL Red Blood Count 4.12 M/uL Hemoglobin 12.9 g/dL Hematocrit 35.7 % Mean Corpuscular Volume 86.7 fL Mean Corpuscular Hemoglobin 31.3 pg Mean Corpuscular Hemoglobin Concent 36.1 g/dl RDW Standard Deviation 40.2 fL RDW Coefficient of Variation 12.5 % Platelet Count 251 K/uL Mean Platelet Volume 8.7 fL Urine Osmolality 495 mOms/kg Urine Random Sodium 37 mEq/L Assessment and Plan This is a 76yo female with a PMH of CAD (s/p stent in ), HTN, HLD, AAA ( without rupture), carotid stenosis, PVD (s/p L AKA in 09/10) and osteoporosis who presents with back and chest pain since this morning Metabolic Encephalopathy secondary to PNA 02/19 continue Levaquin, white count is now wnl will probably need a 7-10 day course; today is day #5 02/18 continue Levaquin; today is day #4 02/17 will continue Levaquin for now Legionella pending 02/16 Plan today is to continue Levaquin give IVFs white count improving clinically improving 02/15 -Chest thorax CTA with bilateral lower lobe airspace opacities, right greater than left. The appearance favors atelectasis although pneumonia could appear similar -No pulmonary emboli identified -Leukocytosis of 22.53 -Endorses CP. Denies SOB, fever, chills -Not on home O2, but became hypoxic at 87% on room air. Satting 98% on 3L NC -Started on Levoquin Elevated Troponin 02/18 unlikely related to ischemia or cardiac issues likely related to pneumonia will obtain dobutamine stress this morning 02/17 appreciate cardiology input will need dobutamine stress prior to discharge ; tentatively planned for , 02/18 02/16 elevated troponin level, increasing to 0.9 likely secondary to infection, dehydration replace K and Mg echo and EKG with no significant change cardiology consulted for further input Back pain Acute T6 compression fracture 02/19 MRI confirms acute T6 fracture; chronic T8 compression fracture ortho consulted, non-surgical due to medical complexities fentanyl patch added, percocet PRN - must monitor for encephalopathy/confusion - she presented with confusion pain management consulted PT/OT 02/18 appreciate ortho input awaiting spine MRI; likely conservative management 02/17 added PT/OT lidocaine patch if pain does not improve, will add low dose narcotic 02/16 lidocaine patch for now avoiding narcotics secondary to encephalopathy 02/15 -No history of back pain -Chest thorax CTA with sub-acute to chronic compression fractures: -Severe T6 compression fracture with retropulsion that results in mild to mod narrowing of the central canal -Mild T8 compression fracture. -History of osteoporosis. On alendronate, calcium -Lidoderm patch for pain control Hypotonic hyponatremia: 02/19 appreciate nephrology input Lasix was started Na up to 122, monitor 02/18 hold IVFs with fluid restriction, Na trended down to 118, now up to 120 02/17 stop IVFs nephrology consulted for further input 02/16 patient with chronic hyponatremia, baseline is around 129-130 currently 125 low urine osm, low serum osm will give some IVFs, and monitor stop HCTZ 02/15 -Confusion, nausea & vomiting -Na of 122 on admission -Serum osm low at 267 -Urine osm pending -Repeat NA pending -Held HCTZ Electrolyte abnormalities - resolved replacing K and Mg HTN: -Stable -Continue metoprolol and lisinopril -Held HCTZ in setting of hyponatremia HLD: -Continue atorvastatin PVD (s/p L AKA in 09/10): -Follows with Dr. Alexandre with vascular surgery -Continue Pletal BID -Denies intermittent claudication but also does not ambulate with prosthetic. Uses wheelchair Carotid stenosis: -Stable -Continue following with PCP and out-pt cardio DVT Ppx: Heparin SQ Code status: FULL PCP: Lara Dispo: Discharge planning ordered
[2017-02-19] MEDS: OXYCODONE/ACETAMINOPHEN 5-325 TAB PO PRN ×3 (11:55→22:47)
[2017-02-19] MEDS: FUROSEMIDE INJ 40 MG in SYRINGE 0 ML IV SCH ×3 (14:42→20:38)
--- NOTE | 2017-02-19 14:54 | Pain Management Consultation ---
Pain Management Consultation Date of Consultation Feb 19, 2017. Reason for Consultation Back pain History Mrs. Florian is a 76 year old white female that has been seen at the [facility] for thoracic back pain that has been ongoing for 4 days without any known injury. Patient describes a deep aching in the mid thoracic region without any radiation. Pain is rated 3/10 currently. Patient is currently on Fentanyl patch 12mcg/hr and had her first dose of Percocet 5/325mg and tolerating the medications well. She admits to slight drowsiness but attributes it to not being able to get a good nights sleep in the hospital. She denies any confusion or constipation. Patient denies any radiation, leg weakness, bowel/bladder incontinence, or recent fall. Case discussed with Dr. Gallo Past Medical/Surgical History (1) HLD (hyperlipidemia) (2) HTN (hypertension) (3) Carotid stenosis (4) AAA (abdominal aortic aneurysm) (5) PVD (peripheral vascular disease) (6) CAD (coronary artery disease) (7) History of heart artery stent (8) S/P appendectomy (9) H/O tubal ligation (10) H/O colonoscopy Family History Diabetes mellitus FH: heart disease Stroke Social / Work History Smoking Status: Unknown if ever smoked Smokeless Tobacco Use: No Alcohol Use: none Drug Use: none Marital Status: Housing Status: lives with family Occupation: retired Allergies Coded Allergies: Antihistamines, Diphenhydramine-typ (Verified Adverse Reaction, Unknown, MAKES HEART RACE, 08/01/15) Medications Current Inpatient Medications Medications (Trade) Dose Ordered Sig/Emely Route Start Time Stop Time Status Last Admin Dose Admin Heparin Sodium (Porcine) (Heparin Sq 5000 Unit/0.5ml) 5,000 unit Q12 SQ 02/15/17 21:00 03/17/17 20:59 02/19/17 08:13 5,000 UNIT Acetaminophen (Tylenol Tab) 650 mg Q4H PRN PO 02/15/17 16:00 03/17/17 15:59 02/19/17 03:25 650 MG Al Hydrox/Mg Hydrox/Simethicone (Maalox Max Susp) 15 ml Q4H PRN PO 02/15/17 16:00 03/17/17 15:59 Magnesium Hydroxide (Milk Of Magnesia Susp) 30 ml Q12H PRN PO 02/15/17 16:00 03/17/17 15:59 Ondansetron HCl (Zofran Inj) 4 mg Q6H PRN IV 02/15/17 16:00 03/17/17 15:59 02/18/17 10:54 4 MG Nitroglycerin (Nitrostat Tab) 0.4 mg UD PRN SL 02/15/17 16:00 03/17/17 15:59 Polyethylene (Miralax Powder Packet) 17 gm DAILY PRN PO 02/15/17 16:00 03/17/17 15:59 Aspirin (Ecotrin Tab) 325 mg QAM PO 02/16/17 09:00 03/18/17 08:59 02/19/17 08:03 325 MG Atorvastatin Calcium (Lipitor Tab) 40 mg DAILY PO 02/16/17 09:00 03/18/17 08:59 02/19/17 08:03 40 MG Cilostazol (Pletal Tab) 100 mg BID PO 02/15/17 21:00 03/17/17 20:59 02/19/17 08:04 100 MG Lisinopril (Zestril Tab) 40 mg DAILY PO 02/16/17 09:00 03/18/17 08:59 02/19/17 08:05 40 MG Metoprolol Tartrate (Lopressor Tab) 50 mg BID PO 02/15/17 21:00 03/17/17 20:59 02/19/17 09:00 50 MG Levofloxacin 750 mg/Prmx 150 ml @ 100 mls/hr Q24H IV 02/16/17 16:00 02/21/17 17:29 02/18/17 15:57 100 MLS/HR Lidocaine (Lidoderm Patch 5%) 1 patch DAILY TD 02/15/17 19:00 03/17/17 18:59 02/19/17 08:13 1 PATCH Miscellaneous (Remove Lidoderm Patch) 1 ea DAILY@21 N/A 02/15/17 23:59 03/17/17 23:58 02/18/17 19:49 1 EA Levalbuterol (Xopenex 0.63 Mg/ 3 Ml Neb) 0.63 mg Q6R INH 02/17/17 15:00 03/19/17 14:59 02/19/17 06:57 0.63 MG Zolpidem Tartrate (Ambien Tab) 5 mg HSZ PRN PO 02/17/17 20:30 03/19/17 20:29 02/17/17 20:38 5 MG Gabapentin (Neurontin Cap) 200 mg TID PO 02/18/17 10:00 03/20/17 09:59 02/19/17 08:05 200 MG Fentanyl (Duragesic Patch) 12 mcg Q72H TD 02/18/17 17:00 03/04/17 16:59 02/18/17 18:11 12 MCG Miscellaneous (Fentanyl Patch Remove & Waste) 1 ea Q3D N/A 02/21/17 16:59 03/23/17 16:58 Miscellaneous Information (Check Fentanyl Patch Placement) 1 ea QS N/A 02/19/17 00:00 03/21/17 00:00 02/19/17 08:03 1 EA Potassium Chloride/Sodium Chloride 1,000 ml @ 150 mls/hr Q6H40M IV 02/18/17 17:00 03/20/17 16:59 02/19/17 08:02 125 MLS/HR Enteral Nutritional Formula (Boost) 1 can BID PO 02/18/17 21:00 03/20/17 20:59 02/19/17 08:16 1 CAN Furosemide 40 mg/ Syringe 4 ml @ 4 mls/min QID IV 02/19/17 13:00 03/20/17 13:59 Potassium Chloride (Klor-Con M10) 40 meq BID PO 02/19/17 21:00 03/18/17 20:59 Oxycodone/ Acetaminophen (Percocet 5-325mg Tab) 1 tab Q4H PRN PO 02/19/17 10:00 03/05/17 09:59 02/19/17 11:55 1 TAB Enteral Nutritional Formula (Boost Pudding) 1 cup TID PO 02/19/17 21:00 03/21/17 20:59 UNV Review of Systems Denies any constitutional, cardiac, pulmonary, neurological, GI, , extremity, endocrine, neuro, ENT, dermatological, or musculoskeletal complaints other than stated in HPI Physical Exam Height & Weight: Height 5 feet, 3.00 inches. Weight 61.000 (Kilograms) 134 (Pounds) Last Vital Signs Documentation Date Time Temp Pulse Resp B/P (MAP) Pulse Ox O2 Delivery O2 Flow Rate FiO2 02/19/17 12:00 Room Air 02/19/17 11:52 36.9 78 18 93/57 (69) 91 02/17/17 09:04 2.0 Exam: GENERAL: Mrs. Florian is a 76 y/o white female that appears her stated age. Speech and cognition is intact. Mood and affect is appropriate. She is resting comfortably in the exam room, able to sit up without difficulty. HEAD: Normocephalic; atraumatic. EYES: Pupils are round, equal, and reactive to light; EOM intact. EXTREMITIES: Using all extremities appropriately. + left AKA amputation BACK: Increased thoracic kyphosis and loss of lumbar lordosis. There is focal tenderness at the T6 midline. +lidocaine patch in place. There is no lumbar tenderness. No paravertebral muscle spasm noted. NEURO: CN II-XII grossly intact with no focal deficits noted. AAO x 3. Laboratory Laboratory Results (Last CBC): 02/19/17 05:00 Imaging MRI Findings Thoracic spine MRI 02/18/17 IMPRESSION: 1. Mildly limited study secondary to patient motion. 2. Mild bone marrow edema is seen within an acute to subacute severe compression deformity of the T6 vertebral body with approximately 50% loss of height both anteriorly and posteriorly. Associated bone marrow edema extends into the posterior elements without definite underlying neoplasm identified. This is likely an insufficiency fracture without history of cancer. 5 mm retropulsion causes moderate central canal and mild bilateral foraminal narrowing. 3. Mild bone marrow edema involves the T5 vertebral body as well without associated compression deformity at this time. 4. Minimal superior compression of the T8 vertebral body appears chronic. Assessment 1. Acute T6 compression fracture 2. Chronic T8 compression fracture 3. History of metabolic encephalopathy Recommendations 1. Continue Fentanyl patch 12mcg/hr and Percocet 5/325mg PO x 4 hrs PRN. 2. A TLSO back brace was ordered for the patient. 3. Patient states that the back pain is currently a dull ache and does not think any pain medications need to be changed.
[2017-02-19 15:08] LABS: BUN/CREATININE RATIO 18.8 (10-20); CALCIUM 7.9 mg/dl (8.5-10.1); CREATININE 0.73 mg/dl (0.60-1.20)
[2017-02-19] MEDS: LEVOFLOXACIN / D5W 750 MG in PREMIXED IN D5W 150 ML IV SCH (15:35)
--- NOTE | 2017-02-19 16:51 | Nephrology Progress Note ---
Nephrology Progress Note Date of Service: Feb 19, 2017. Subjective c/o back pain and minimal po intake; started on BOOST; no dyspnea; at bedside; no obvious confusion;seen on rounds this am 0930 am and followed through day Objective Date Time Temp Pulse Resp B/P (MAP) Pulse Ox O2 Delivery O2 Flow Rate FiO2 02/19/17 15:44 36.5 84 20 107/69 (82) 91 Room Air 02/19/17 14:50 81 14 93 Room Air 02/19/17 12:00 Room Air 02/19/17 11:52 36.9 78 18 93/57 (69) 91 Room Air 02/19/17 08:00 Room Air 02/19/17 07:31 36.8 102 17 146/78 (100) 90 Room Air 02/19/17 06:57 81 14 93 Room Air 02/19/17 04:00 Room Air 02/19/17 03:16 37.1 101 19 112/74 (87) 93 Room Air 02/19/17 00:00 Room Air 02/18/17 23:15 36.9 84 19 99/59 (72) 90 Room Air 02/18/17 20:00 Room Air 02/18/17 19:30 37.0 105 20 118/77 (91) 97 Room Air 02/18/17 19:00 84 14 93 Room Air Physical Exam: sitting up in bed, on RA, oriented x 3 eomi dry mm supple neck RRR; no edema very diminished air mvt bl marysol bl bases soft NT abd; + schmidt L aka, no cyanosis boggs, fluent speech Current Inpatient Medications Medications (Trade) Dose Ordered Sig/Emely Route Start Time Stop Time Status Last Admin Dose Admin Heparin Sodium (Porcine) (Heparin Sq 5000 Unit/0.5ml) 5,000 unit Q12 SQ 02/15/17 21:00 03/17/17 20:59 02/19/17 08:13 5,000 UNIT Acetaminophen (Tylenol Tab) 650 mg Q4H PRN PO 02/15/17 16:00 03/17/17 15:59 02/19/17 03:25 650 MG Al Hydrox/Mg Hydrox/Simethicone (Maalox Max Susp) 15 ml Q4H PRN PO 02/15/17 16:00 03/17/17 15:59 Magnesium Hydroxide (Milk Of Magnesia Susp) 30 ml Q12H PRN PO 02/15/17 16:00 03/17/17 15:59 Ondansetron HCl (Zofran Inj) 4 mg Q6H PRN IV 02/15/17 16:00 03/17/17 15:59 02/18/17 10:54 4 MG Nitroglycerin (Nitrostat Tab) 0.4 mg UD PRN SL 02/15/17 16:00 03/17/17 15:59 Polyethylene (Miralax Powder Packet) 17 gm DAILY PRN PO 02/15/17 16:00 03/17/17 15:59 Aspirin (Ecotrin Tab) 325 mg QAM PO 02/16/17 09:00 03/18/17 08:59 02/19/17 08:03 325 MG Atorvastatin Calcium (Lipitor Tab) 40 mg DAILY PO 02/16/17 09:00 03/18/17 08:59 02/19/17 08:03 40 MG Cilostazol (Pletal Tab) 100 mg BID PO 02/15/17 21:00 03/17/17 20:59 02/19/17 08:04 100 MG Lisinopril (Zestril Tab) 40 mg DAILY PO 02/16/17 09:00 03/18/17 08:59 02/19/17 08:05 40 MG Metoprolol Tartrate (Lopressor Tab) 50 mg BID PO 02/15/17 21:00 03/17/17 20:59 02/19/17 09:00 50 MG Levofloxacin 750 mg/Prmx 150 ml @ 100 mls/hr Q24H IV 02/16/17 16:00 02/21/17 17:29 02/19/17 15:35 100 MLS/HR Lidocaine (Lidoderm Patch 5%) 1 patch DAILY TD 02/15/17 19:00 03/17/17 18:59 02/19/17 08:13 1 PATCH Miscellaneous (Remove Lidoderm Patch) 1 ea DAILY@21 N/A 02/15/17 23:59 03/17/17 23:58 02/18/17 19:49 1 EA Levalbuterol (Xopenex 0.63 Mg/ 3 Ml Neb) 0.63 mg Q6R INH 02/17/17 15:00 03/19/17 14:59 02/19/17 14:50 0.63 MG Zolpidem Tartrate (Ambien Tab) 5 mg HSZ PRN PO 02/17/17 20:30 03/19/17 20:29 02/17/17 20:38 5 MG Gabapentin (Neurontin Cap) 200 mg TID PO 02/18/17 10:00 03/20/17 09:59 02/19/17 14:42 200 MG Fentanyl (Duragesic Patch) 12 mcg Q72H TD 02/18/17 17:00 03/04/17 16:59 02/18/17 18:11 12 MCG Miscellaneous (Fentanyl Patch Remove & Waste) 1 ea Q3D N/A 02/21/17 16:59 03/23/17 16:58 Miscellaneous Information (Check Fentanyl Patch Placement) 1 ea QS N/A 02/19/17 00:00 03/21/17 00:00 02/19/17 15:35 1 EA Potassium Chloride/Sodium Chloride 1,000 ml @ 150 mls/hr Q6H40M IV 02/18/17 17:00 03/20/17 16:59 02/19/17 08:02 125 MLS/HR Furosemide 40 mg/ Syringe 4 ml @ 4 mls/min QID IV 02/19/17 13:00 03/20/17 13:59 02/19/17 15:35 4 MLS/MIN Potassium Chloride (Klor-Con M10) 40 meq BID PO 02/19/17 21:00 03/18/17 20:59 Oxycodone/ Acetaminophen (Percocet 5-325mg Tab) 1 tab Q4H PRN PO 02/19/17 10:00 03/05/17 09:59 02/19/17 11:55 1 TAB Enteral Nutritional Formula (Boost Pudding) 1 cup TID PO 02/19/17 21:00 03/21/17 20:59 Last 24 Hours Test 02/18/17 20:56 02/19/17 05:00 02/19/17 05:15 02/19/17 14:09 Sodium Level 119 mmol/L 122 mmol/L 124 mmol/L Potassium Level 4.4 mmol/L 4.9 mmol/L 5.0 mmol/L Chloride Level 90 mmol/L 94 mmol/L 96 mmol/L Carbon Dioxide Level 21 mmol/L 22 mmol/L 20 mmol/L Anion Gap 7.0 mmol/L 6.0 mmol/L 8.0 mmol/L Blood Urea Nitrogen 10 mg/dl 13 mg/dl 14 mg/dl Creatinine 0.62 mg/dl 0.80 mg/dl 0.73 mg/dl Est Creatinine Clear Calc Drug Dose 64.8 ml/min 50.2 ml/min 55.1 ml/min Estimated GFR () 102.2 83.6 93.4 Estimated GFR (Non- 88.2 72.1 80.6 BUN/Creatinine Ratio 15.8 16.5 18.8 Random Glucose 157 mg/dl 108 mg/dl 136 mg/dl Calcium Level 7.7 mg/dl 8.0 mg/dl 7.9 mg/dl Magnesium Level 1.5 mg/dl 2.2 mg/dl White Blood Count 9.95 K/uL Red Blood Count 4.12 M/uL Hemoglobin 12.9 g/dL Hematocrit 35.7 % Mean Corpuscular Volume 86.7 fL Mean Corpuscular Hemoglobin 31.3 pg Mean Corpuscular Hemoglobin Concent 36.1 g/dl RDW Standard Deviation 40.2 fL RDW Coefficient of Variation 12.5 % Platelet Count 251 K/uL Mean Platelet Volume 8.7 fL Urine Osmolality 495 mOms/kg Urine Random Sodium 37 mEq/L Assessment & Plan 76 y/o F w/ daily EtOH use, severe emphysema not on home 02/inhalers, HTN, CAD and severe PVD on full dose daily asa, osteoporosis admitted 02/15 with confusion , severe back/chest pain, presenting sNa 122, K 2.2. 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 as well as low solute diet in setting of chronic EtOH use and hctz daily and uncontrolled pain and N can also have a role >sodium improved to 125 at first but dropped to high teens; admission urine more consistent w/ volume depletion -cont to hold hctz -suspect ASA full dose is obligate d/t PVD this pm, sNa better and K better/high normal >> -goal SBP for am is 128 ->lowered po K suppls at 40 mEq bid but based on labs this afternoon will make daily for now -control pain/ N either of which worsen hypoNa >continue to limit fluids to 1.2L daily; boost does not count -stopped her amlodipine >cont NS w/ 20 mEq/L K but increase rate from 125 to 150 mL hourly and increase lasix from qid IV 20 mg to qid IV 40 mg -recheck bmp 2100 stat Hypomagnesemia -wnl today HTN and elevated troponin -cont ACEI, BB; CCB on hold for now -cardiology f/u as indicated > DSE done -?role for EtOH Hypoxia, PNA -on levaquin -consider abg Compression frxs T spine -f/u ortho recs Appreciate consult; will follow with you. Care coordinated w/ Dr Rivers.
[2017-02-19] MEDS: BOOST VANILLA PUDDING CUP PO SCH (20:38)
[2017-02-19] MEDS ORDERED: POTASSIUM CHLORIDE 10 MEQ TABCR PO SCH (21:00)
[2017-02-19 21:43] LABS: BUN/CREATININE RATIO 18.7 (10-20); CALCIUM 7.9 mg/dl (8.5-10.1); CREATININE 0.71 mg/dl (0.60-1.20); POTASSIUM 4.4 mmol/L (3.5-5.1)
[2017-02-20] VITALS (12 sets, daily range): BP systolic 102–131; BP diastolic 64–70; PULSE 73–104; TEMP 36.5–37.2; O2SAT 90–97
[2017-02-20] MEDS: NSS + 20MEQ KCL 1000ML 1,000 ML IV SCH ×3 (01:37→21:09)
[2017-02-20] MEDS: LEVALBUTEROL 0.63MG/3 ML NEB INH SCH ×5 (02:05→19:22)
[2017-02-20 06:30] LABS: HEMATOCRIT 34.5 % (37-47); MEAN CORPUSCULAR HEMOGLOBIN 31.1 pg (25-34); MEAN CORPUSCULAR HGB CONC 35.4 g/dl (32-36); MEAN PLATELET VOLUME 8.7 fL (7.4-10.4); PLATELET COUNT 233 K/uL (130-400); RED BLOOD COUNT 3.92 M/uL (4.2-5.4); WHITE BLOOD COUNT 12.74 K/uL (4.8-10.8)
[2017-02-20] MEDS: OXYCODONE/ACETAMINOPHEN 5-325 TAB PO PRN ×2 (06:33→19:44)
[2017-02-20] MEDS: POTASSIUM CHLORIDE 10 MEQ TABCR PO SCH ×2 (07:33→21:10)
[2017-02-20] MEDS: METOPROLOL TARTRATE 50 MG TAB PO SCH ×2 (07:33→21:10)
[2017-02-20] MEDS: ATORVASTATIN 40 MG TAB PO SCH (07:34)
[2017-02-20] MEDS: GABAPENTIN 100 MG CAP PO SCH ×3 (07:34→21:11)
[2017-02-20] MEDS: ASPIRIN 325 MG ECTAB PO SCH (07:34)
[2017-02-20] MEDS: CILOSTAZOL 100 MG TAB PO SCH ×2 (07:35→21:11)
[2017-02-20] MEDS: BOOST VANILLA PUDDING CUP PO SCH ×3 (07:36→21:00)
[2017-02-20] MEDS: LIDODERM (LIDOCAINE) PATCH 5% TD SCH (07:36)
[2017-02-20] MEDS: HEPARIN SOD 5000 UNIT/0.5 ML CARP SQ SCH ×2 (07:40→21:14)
[2017-02-20] MEDS: CHECK FENTANYL PATCH PLACEMENT SCH ×2 (07:42→15:36)
[2017-02-20] MEDS: FUROSEMIDE INJ 40 MG in SYRINGE 0 ML IV SCH ×4 (07:43→21:12)
[2017-02-20] MEDS ORDERED: LISINOPRIL 10 MG TAB PO SCH (09:00)
[2017-02-20 09:07] LABS: BUN/CREATININE RATIO 15.1 (10-20); CALCIUM 7.9 mg/dl (8.5-10.1); CREATININE 0.63 mg/dl (0.60-1.20); POTASSIUM 4.6 mmol/L (3.5-5.1)
--- NOTE | 2017-02-20 10:38 | Progress Note ---
Medicine Progress Note Date & Time of Visit: Feb 20, 2017 at 10:14. Subjective feels"better than I have in a while" reports back pain is present but controlled; first episode of back pain was 5-6 days ago; no trauma reported tolerating PO ambulates without prosthetic at baseline; preferred by patient denies cough, fevers, chills, SOB. Objective Last 8 Hrs Date Time Temp Pulse Resp B/P (MAP) Pulse Ox O2 Delivery O2 Flow Rate FiO2 02/20/17 08:00 Room Air 02/20/17 07:32 37.2 91 18 131/69 (89) 90 Room Air 02/20/17 07:07 88 16 92 Room Air 02/20/17 04:00 Room Air 02/20/17 03:10 36.5 80 16 125/67 (86) 94 Room Air Physical Exam: GEN: WNWD, in no acute distress, alert and appropriate HEENT: NC/AT, normal sclerae, MMM CARDIO: reg rate, S1/2 heard without m/g/r LUNGS: CTA bilaterally, no crackles, rales or wheezes, good diaphragmatic excursion. Breath sounds are faint both posteriorly and anteriorly ABD: soft, non-tender, non-distended, no rebound or guarding, +BS EXTREMITY: RP and DP palpable 2+ on RLE, L AKA with well-healed stump, no LE swelling or edema, extremities are warm and well-perfused NEURO: CN 2-12 grossly intact, sensation intact throughout, no gross focal deficits. MUSC: moves all extremities equally SKIN: warm and dry, notably tanned. Laboratory Results: 02/20/17 06:17 02/20/17 06:17 Test 02/15/17 10:55 02/15/17 15:15 02/15/17 19:38 02/15/17 19:40 Prothrombin Time 11.0 SECONDS (9.0-12.0) Prothromb Time International Ratio 1.0 (0.9-1.1) Osmolality 257 mOsm/kg (280-300) Total Bilirubin 0.6 mg/dl (0.2-1) Aspartate Amino Transf (AST/SGOT) 32 U/L (15-37) Alanine Aminotransferase (ALT/SGPT) 35 U/L (12-78) Alkaline Phosphatase 76 U/L (45-117) Pro-B-Type Natriuretic Peptide 210 pg/ml (0-900) Total Protein 8.5 gm/dl (6.4-8.2) Albumin 4.0 gm/dl (3.4-5.0) Globulin 4.5 gm/dl (2.5-4.0) Albumin/Globulin Ratio 0.9 (0.9-2) Urine Color YELLOW Urine Appearance CLEAR (CLEAR) Urine pH 6.0 (4.5-7.5) Urine Specific [place] 1.033 (1.000-1.030) Urine Protein 1+ (NEG) Urine Glucose (UA) 2+ (NEG) Urine Ketones 1+ (NEG) Urine Occult Blood TRACE (NEG) Urine Nitrite NEG (NEG) Urine Bilirubin NEG (NEG) Urine Urobilinogen NEG (NEG) Urine Leukocyte Esterase TRACE (NEG) Urine WBC (Auto) 1-5 /hpf (0-5) Urine RBC (Auto) 0-4 /hpf (0-4) Urine Hyaline Casts (Auto) 1-5 /lpf (0-5) Urine Epithelial Cells (Auto) 20-30 /lpf (0-5) Urine Bacteria (Auto) NEG (NEG) Lactic Acid Level 1.0 mmol/L (0.4-2.0) Urine Legionella Antigen NOT DETECTED (NOT DETECTED) Test 02/15/17 22:00 02/16/17 06:09 02/19/17 05:00 02/19/17 05:15 Estimated Average Glucose 126 mg/dl Hemoglobin A1c 6.0 % (4.5-5.6) Immature Granulocyte % (Auto) 0.4 % White Blood Count 16.76 K/uL (4.8-10.8) Red Blood Count 4.26 M/uL (4.2-5.4) Hemoglobin 13.7 g/dL (12.0-16.0) Hematocrit 36.2 % (37-47) Mean Corpuscular Volume 85.0 fL (80-100) Mean Corpuscular Hemoglobin 32.2 pg (25-34) Mean Corpuscular Hemoglobin Concent 37.8 g/dl (32-36) Platelet Count 233 K/uL (130-400) Mean Platelet Volume 9.1 fL (7.4-10.4) Neutrophils (%) (Auto) 86.3 % Lymphocytes (%) (Auto) 9.5 % Monocytes (%) (Auto) 3.7 % Eosinophils (%) (Auto) 0.0 % Basophils (%) (Auto) 0.1 % Neutrophils # (Auto) 14.47 K/uL (1.4-6.5) Lymphocytes # (Auto) 1.59 K/uL (1.2-3.4) Monocytes # (Auto) 0.62 K/uL (0.11-0.59) Eosinophils # (Auto) 0.00 K/uL (0-0.5) Basophils # (Auto) 0.02 K/uL (0-0.2) Immature Granulocyte # (Auto) 0.06 K/uL (0.00-0.02) Total Creatine Kinase 529 U/L (26-192) Creatine Kinase MB 8.0 ng/ml (0.5-3.6) Creatine Kinase MB Ratio 1.5 (0-3.0) Troponin I 0.920 ng/ml (0-0.045) Magnesium Level 2.2 mg/dl (1.8-2.4) Urine Osmolality 495 mOms/kg (500-800) Urine Random Sodium 37 mEq/L Test 02/20/17 06:17 Red Blood Count 3.92 M/uL (4.2-5.4) Mean Corpuscular Volume 88.0 fL (80-100) Mean Corpuscular Hemoglobin 31.1 pg (25-34) Mean Corpuscular Hemoglobin Concent 35.4 g/dl (32-36) RDW Standard Deviation 41.8 fL (36.4-46.3) RDW Coefficient of Variation 12.9 % (11.5-14.5) Mean Platelet Volume 8.7 fL (7.4-10.4) Anion Gap 6.0 mmol/L (3-11) Est Creatinine Clear Calc Drug Dose 63.8 ml/min Estimated GFR () 101.7 Estimated GFR (Non- 87.7 BUN/Creatinine Ratio 15.1 (10-20) Calcium Level 7.9 mg/dl (8.5-10.1) Date/Time Source Procedure Growth Status 02/15/17 15:09 Blood Blood Culture - Preliminary NO GROWTH TO DATE. Resulted Last 24 Hours Test 02/19/17 14:09 02/19/17 21:06 02/20/17 06:17 Sodium Level 124 mmol/L 125 mmol/L 127 mmol/L Potassium Level 5.0 mmol/L 4.4 mmol/L 4.6 mmol/L Chloride Level 96 mmol/L 97 mmol/L 98 mmol/L Carbon Dioxide Level 20 mmol/L 21 mmol/L 23 mmol/L Anion Gap 8.0 mmol/L 7.0 mmol/L 6.0 mmol/L Blood Urea Nitrogen 14 mg/dl 13 mg/dl 10 mg/dl Creatinine 0.73 mg/dl 0.71 mg/dl 0.63 mg/dl Est Creatinine Clear Calc Drug Dose 55.1 ml/min 56.6 ml/min 63.8 ml/min Estimated GFR () 93.4 96.6 101.7 Estimated GFR (Non- 80.6 83.3 87.7 BUN/Creatinine Ratio 18.8 18.7 15.1 Random Glucose 136 mg/dl 159 mg/dl 107 mg/dl Calcium Level 7.9 mg/dl 7.9 mg/dl 7.9 mg/dl White Blood Count 12.74 K/uL Red Blood Count 3.92 M/uL Hemoglobin 12.2 g/dL Hematocrit 34.5 % Mean Corpuscular Volume 88.0 fL Mean Corpuscular Hemoglobin 31.1 pg Mean Corpuscular Hemoglobin Concent 35.4 g/dl RDW Standard Deviation 41.8 fL RDW Coefficient of Variation 12.9 % Platelet Count 233 K/uL Mean Platelet Volume 8.7 fL Assessment & Plan 76 yo F who presented with metabolic encephalopathy 2/2 pneumonia in setting of back and chest pain--found to have nontraumatic? T6 compression fracture. Evaluated by ortho spine and fitted with an orthotic. Pain control efforts with Fentanyl patch, PRN percocet and Lidoderm patch also effective. 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 1. Metabolic encephalopathy 2/2 pneumonia-Leukocytosis and symptoms improved, oxygenating well on room air. No coughing, fevers or chills are present. Cont Levaquin, day 6/10. Change to PO. 2. Hyponatremia-pain and nausea improved. Per Nephro cont Lasix, IVF and fluid restriction (1.2L). Pt feels well. Na improved from 124 to 127 today. Pt is eating well at this time. Cont current therapy. Cont Corbett for accurate I/Os. Cont potassium replacement in setting of Lasix use. HCTZ held. 3. Thoracic compression fracture-no trauma per patient. She was fitted with Orthotics. Pain control is effective at this time. Pt advised on constipation in setting of narcotics. Awaiting further Ortho Spine recommendations based on MRI findings being more acute. 4. Elevated troponin-likely 2/2 demand ischemia in setting of severe PVD and known CAD s/p 4 stents. DSE was performed this admission (02/18) which was negative. Pt denies chest pain at this time. 5. CAP-plan as above. 6. 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 She is at her baseline per PT and return home when stable recommended. 7. PVD/CAD s/p stents-cont medical management with ASA 325, Lipitor 40, Pletal 100 BID, Lisinopril 10mg daily, Lopressor 50mg PO BID. 8. Osteoporosis-on Fosamax weekly. Hold until further advised by Ortho. Started Ca/D replacement BID 9. HTN-controlled on meds above. Notably HCTZ and amlodipine were stopped. DVT Ppx: Heparin SQ Code status: FULL PCP: Lara Dispo: to home when medically stable Mckenna Barney DO [facility] Hospitalist Current Inpatient Medications: Current Inpatient Medications Medications (Trade) Dose Ordered Sig/Emely Route Start Time Stop Time Status Last Admin Dose Admin Heparin Sodium (Porcine) (Heparin Sq 5000 Unit/0.5ml) 5,000 unit Q12 SQ 02/15/17 21:00 03/17/17 20:59 02/20/17 07:40 5,000 UNIT Acetaminophen (Tylenol Tab) 650 mg Q4H PRN PO 02/15/17 16:00 03/17/17 15:59 02/19/17 03:25 650 MG Al Hydrox/Mg Hydrox/Simethicone (Maalox Max Susp) 15 ml Q4H PRN PO 02/15/17 16:00 03/17/17 15:59 Magnesium Hydroxide (Milk Of Magnesia Susp) 30 ml Q12H PRN PO 02/15/17 16:00 03/17/17 15:59 Ondansetron HCl (Zofran Inj) 4 mg Q6H PRN IV 02/15/17 16:00 03/17/17 15:59 02/18/17 10:54 4 MG Nitroglycerin (Nitrostat Tab) 0.4 mg UD PRN SL 02/15/17 16:00 03/17/17 15:59 Polyethylene (Miralax Powder Packet) 17 gm DAILY PRN PO 02/15/17 16:00 03/17/17 15:59 Aspirin (Ecotrin Tab) 325 mg QAM PO 02/16/17 09:00 03/18/17 08:59 02/20/17 07:34 325 MG Atorvastatin Calcium (Lipitor Tab) 40 mg DAILY PO 02/16/17 09:00 03/18/17 08:59 02/20/17 07:34 40 MG Cilostazol (Pletal Tab) 100 mg BID PO 02/15/17 21:00 03/17/17 20:59 02/20/17 07:35 100 MG Metoprolol Tartrate (Lopressor Tab) 50 mg BID PO 02/15/17 21:00 03/17/17 20:59 02/20/17 07:33 50 MG Levofloxacin 750 mg/Prmx 150 ml @ 100 mls/hr Q24H IV 02/16/17 16:00 02/21/17 17:29 02/19/17 15:35 100 MLS/HR Lidocaine (Lidoderm Patch 5%) 1 patch DAILY TD 02/15/17 19:00 03/17/17 18:59 02/20/17 07:36 1 PATCH Miscellaneous (Remove Lidoderm Patch) 1 ea DAILY@21 N/A 02/15/17 23:59 03/17/17 23:58 02/19/17 20:39 1 EA Levalbuterol (Xopenex 0.63 Mg/ 3 Ml Neb) 0.63 mg Q6R INH 02/17/17 15:00 03/19/17 14:59 02/20/17 07:05 0.63 MG Zolpidem Tartrate (Ambien Tab) 5 mg HSZ PRN PO 02/17/17 20:30 03/19/17 20:29 02/17/17 20:38 5 MG Gabapentin (Neurontin Cap) 200 mg TID PO 02/18/17 10:00 03/20/17 09:59 02/20/17 07:34 200 MG Fentanyl (Duragesic Patch) 12 mcg Q72H TD 02/18/17 17:00 03/04/17 16:59 02/18/17 18:11 12 MCG Miscellaneous (Fentanyl Patch Remove & Waste) 1 ea Q3D N/A 02/21/17 16:59 03/23/17 16:58 Miscellaneous Information (Check Fentanyl Patch Placement) 1 ea QS N/A 02/19/17 00:00 03/21/17 00:00 02/20/17 07:42 1 EA Potassium Chloride/Sodium Chloride 1,000 ml @ 150 mls/hr Q6H40M IV 02/18/17 17:00 03/20/17 16:59 02/20/17 09:19 150 MLS/HR Furosemide 40 mg/ Syringe 4 ml @ 4 mls/min QID IV 02/19/17 13:00 03/20/17 13:59 02/20/17 07:43 4 MLS/MIN Oxycodone/ Acetaminophen (Percocet 5-325mg Tab) 1 tab Q4H PRN PO 02/19/17 10:00 03/05/17 09:59 02/20/17 06:33 1 TAB Enteral Nutritional Formula (Boost Pudding) 1 cup TID PO 02/19/17 21:00 03/21/17 20:59 02/20/17 07:36 1 CUP Lisinopril (Zestril Tab) 10 mg DAILY PO 02/20/17 09:00 03/18/17 08:59 02/20/17 07:37 10 MG Potassium Chloride (Klor-Con M10) 20 meq BID PO 02/19/17 21:00 03/18/17 20:59 02/20/17 07:33 20 MEQ
[2017-02-20] MEDS: LEVOFLOXACIN 750 MG TAB PO SCH (12:01)
--- NOTE | 2017-02-20 16:28 | Nephrology Progress Note ---
Nephrology Progress Note Date of Service: Feb 20, 2017. Subjective controlled back pain; better today at po intake; on BOOST; no dyspnea and remains on RA; no obvious confusion; moving to po abtx Objective Date Time Temp Pulse Resp B/P (MAP) Pulse Ox O2 Delivery O2 Flow Rate FiO2 02/20/17 13:42 96 16 93 Room Air 02/20/17 11:39 Room Air 02/20/17 11:38 37.2 73 18 111/65 (80) 91 Room Air 02/20/17 08:00 Room Air 02/20/17 07:32 37.2 91 18 131/69 (89) 90 Room Air 02/20/17 07:07 88 16 92 Room Air 02/20/17 04:00 Room Air 02/20/17 03:10 36.5 80 16 125/67 (86) 94 Room Air 02/20/17 02:06 83 16 92 Room Air 02/20/17 00:00 Room Air 02/19/17 23:40 37.0 72 17 104/62 (76) 93 Room Air 02/19/17 20:00 95 Room Air 02/19/17 19:31 36.6 80 18 107/70 (82) 92 Room Air 02/19/17 18:56 93 16 93 Room Air 02/19/17 16:00 93 Room Air 02/19/17 15:44 36.5 84 20 107/69 (82) 91 Room Air 02/19/17 14:50 81 14 93 Room Air Physical Exam: sitting up in bed, on RA, oriented x 3 eomi dry mm supple neck RRR; no edema very diminished air mvt bl marysol bl bases soft NT abd; + schmidt L aka, no cyanosis boggs, fluent speech Current Inpatient Medications Medications (Trade) Dose Ordered Sig/Emely Route Start Time Stop Time Status Last Admin Dose Admin Heparin Sodium (Porcine) (Heparin Sq 5000 Unit/0.5ml) 5,000 unit Q12 SQ 02/15/17 21:00 03/17/17 20:59 02/20/17 07:40 5,000 UNIT Acetaminophen (Tylenol Tab) 650 mg Q4H PRN PO 02/15/17 16:00 03/17/17 15:59 02/19/17 03:25 650 MG Al Hydrox/Mg Hydrox/Simethicone (Maalox Max Susp) 15 ml Q4H PRN PO 02/15/17 16:00 03/17/17 15:59 Magnesium Hydroxide (Milk Of Magnesia Susp) 30 ml Q12H PRN PO 02/15/17 16:00 03/17/17 15:59 Ondansetron HCl (Zofran Inj) 4 mg Q6H PRN IV 02/15/17 16:00 03/17/17 15:59 02/18/17 10:54 4 MG Nitroglycerin (Nitrostat Tab) 0.4 mg UD PRN SL 02/15/17 16:00 03/17/17 15:59 Polyethylene (Miralax Powder Packet) 17 gm DAILY PRN PO 02/15/17 16:00 03/17/17 15:59 Aspirin (Ecotrin Tab) 325 mg QAM PO 02/16/17 09:00 03/18/17 08:59 02/20/17 07:34 325 MG Atorvastatin Calcium (Lipitor Tab) 40 mg DAILY PO 02/16/17 09:00 03/18/17 08:59 02/20/17 07:34 40 MG Cilostazol (Pletal Tab) 100 mg BID PO 02/15/17 21:00 03/17/17 20:59 02/20/17 07:35 100 MG Metoprolol Tartrate (Lopressor Tab) 50 mg BID PO 02/15/17 21:00 03/17/17 20:59 02/20/17 07:33 50 MG Lidocaine (Lidoderm Patch 5%) 1 patch DAILY TD 02/15/17 19:00 03/17/17 18:59 02/20/17 07:36 1 PATCH Miscellaneous (Remove Lidoderm Patch) 1 ea DAILY@21 N/A 02/15/17 23:59 03/17/17 23:58 02/19/17 20:39 1 EA Levalbuterol (Xopenex 0.63 Mg/ 3 Ml Neb) 0.63 mg Q6R INH 02/17/17 15:00 03/19/17 14:59 02/20/17 13:42 0.63 MG Zolpidem Tartrate (Ambien Tab) 5 mg HSZ PRN PO 02/17/17 20:30 03/19/17 20:29 02/17/17 20:38 5 MG Gabapentin (Neurontin Cap) 200 mg TID PO 02/18/17 10:00 03/20/17 09:59 02/20/17 13:45 200 MG Fentanyl (Duragesic Patch) 12 mcg Q72H TD 02/18/17 17:00 03/04/17 16:59 02/18/17 18:11 12 MCG Miscellaneous (Fentanyl Patch Remove & Waste) 1 ea Q3D N/A 02/21/17 16:59 03/23/17 16:58 Miscellaneous Information (Check Fentanyl Patch Placement) 1 ea QS N/A 02/19/17 00:00 03/21/17 00:00 02/20/17 07:42 1 EA Potassium Chloride/Sodium Chloride 1,000 ml @ 150 mls/hr Q6H40M IV 02/18/17 17:00 03/20/17 16:59 02/20/17 09:19 150 MLS/HR Furosemide 40 mg/ Syringe 4 ml @ 4 mls/min QID IV 02/19/17 13:00 03/20/17 13:59 02/20/17 12:02 4 MLS/MIN Oxycodone/ Acetaminophen (Percocet 5-325mg Tab) 1 tab Q4H PRN PO 02/19/17 10:00 03/05/17 09:59 02/20/17 06:33 1 TAB Enteral Nutritional Formula (Boost Pudding) 1 cup TID PO 02/19/17 21:00 03/21/17 20:59 02/20/17 13:46 1 CUP Lisinopril (Zestril Tab) 10 mg DAILY PO 02/20/17 09:00 03/18/17 08:59 02/20/17 07:37 10 MG Potassium Chloride (Klor-Con M10) 20 meq BID PO 02/19/17 21:00 03/18/17 20:59 02/20/17 07:33 20 MEQ Levofloxacin (Levaquin Tab) 750 mg DAILY@11 PO 02/20/17 11:00 02/22/17 23:59 02/20/17 12:01 750 MG Calcium/Vitamin D (Caltrate Plus Tab) 1 tab BID PO 02/20/17 21:00 03/22/17 20:59 Last 24 Hours Test 02/19/17 14:09 02/19/17 21:06 02/20/17 06:17 Sodium Level 124 mmol/L 125 mmol/L 127 mmol/L Potassium Level 5.0 mmol/L 4.4 mmol/L 4.6 mmol/L Chloride Level 96 mmol/L 97 mmol/L 98 mmol/L Carbon Dioxide Level 20 mmol/L 21 mmol/L 23 mmol/L Anion Gap 8.0 mmol/L 7.0 mmol/L 6.0 mmol/L Blood Urea Nitrogen 14 mg/dl 13 mg/dl 10 mg/dl Creatinine 0.73 mg/dl 0.71 mg/dl 0.63 mg/dl Est Creatinine Clear Calc Drug Dose 55.1 ml/min 56.6 ml/min 63.8 ml/min Estimated GFR () 93.4 96.6 101.7 Estimated GFR (Non- 80.6 83.3 87.7 BUN/Creatinine Ratio 18.8 18.7 15.1 Random Glucose 136 mg/dl 159 mg/dl 107 mg/dl Calcium Level 7.9 mg/dl 7.9 mg/dl 7.9 mg/dl White Blood Count 12.74 K/uL Red Blood Count 3.92 M/uL Hemoglobin 12.2 g/dL Hematocrit 34.5 % Mean Corpuscular Volume 88.0 fL Mean Corpuscular Hemoglobin 31.1 pg Mean Corpuscular Hemoglobin Concent 35.4 g/dl RDW Standard Deviation 41.8 fL RDW Coefficient of Variation 12.9 % Platelet Count 233 K/uL Mean Platelet Volume 8.7 fL Assessment & Plan 76 y/o F w/ daily EtOH use, severe emphysema not on home 02/inhalers, HTN, CAD and severe PVD on full dose daily asa, osteoporosis admitted 02/15 with confusion , severe back/chest pain, presenting sNa 122, K 2.2. 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 as well as low solute diet in setting of chronic EtOH use and hctz daily and uncontrolled pain and N can also have a role >sodium improved to 125 at first but dropped to high teens; admission urine more consistent w/ volume depletion -cont to hold hctz and amlodipine -suspect ASA full dose is obligate d/t PVD this pm, sNa better and K better/high normal >> -goal SBP for am is 133 ->lowered po K suppls at 20 mEq daily -control pain/ N either of which worsen hypoNa >continue to limit fluids to 1.2L daily; boost does not count >cont NS w/ 20 mEq/L K at 150 mL hourly and cont increased lasix qid IV 40 mg -f/u 1600 urgent bmp Hypomagnesemia -recheck 1600 HTN and elevated troponin -cont ACEI, BB; CCB on hold for now; controlled -cardiology f/u as indicated > DSE done -?role for EtOH Hypoxia, PNA -on levaquin -consider abg Compression frxs T spine -f/u ortho recs Appreciate consult; will follow with you. Care coordinated w/ Dr Barney
[2017-02-20 16:44] LABS: BUN/CREATININE RATIO 12.8 (10-20); CALCIUM 8.5 mg/dl (8.5-10.1); CREATININE 0.85 mg/dl (0.60-1.20); MAGNESIUM 1.6 mg/dl (1.8-2.4); POTASSIUM 4.4 mmol/L (3.5-5.1)
[2017-02-20] MEDS ORDERED: MAGNESIUM SULFATE 1GM / D5W 1 GM in PREMIXED IN D5W 100 ML IV STA (21:00)
[2017-02-20] MEDS: CALCIUM 600MG + VIT D 400 IU TAB PO SCH (21:09)
[2017-02-21] VITALS (10 sets, daily range): BP systolic 89–113; BP diastolic 53–73; PULSE 68–98; TEMP 36.9–37.2; O2SAT 90–93
[2017-02-21] MEDS: CHECK FENTANYL PATCH PLACEMENT SCH ×4 (00:09→23:21)
[2017-02-21] MEDS: OXYCODONE/ACETAMINOPHEN 5-325 TAB PO PRN ×3 (00:09→20:45)
[2017-02-21] MEDS: LEVALBUTEROL 0.63MG/3 ML NEB INH SCH ×4 (01:55→20:11)
[2017-02-21 06:26] LABS: HEMATOCRIT 35.3 % (37-47); MEAN CELL VOLUME 88.5 fL (80-100); MEAN CORPUSCULAR HEMOGLOBIN 30.1 pg (25-34); MEAN PLATELET VOLUME 8.6 fL (7.4-10.4); PLATELET COUNT 248 K/uL (130-400); RED BLOOD COUNT 3.99 M/uL (4.2-5.4); WHITE BLOOD COUNT 10.36 K/uL (4.8-10.8)
[2017-02-21 06:59] LABS: BUN/CREATININE RATIO 12.8 (10-20); CALCIUM 8.8 mg/dl (8.5-10.1); CREATININE 0.82 mg/dl (0.60-1.20); POTASSIUM 4.4 mmol/L (3.5-5.1)
[2017-02-21] MEDS: BOOST VANILLA PUDDING CUP PO SCH ×3 (07:58→20:37)
[2017-02-21] MEDS: CALCIUM 600MG + VIT D 400 IU TAB PO SCH ×2 (07:59→20:37)
[2017-02-21] MEDS: ASPIRIN 325 MG ECTAB PO SCH (08:00)
[2017-02-21] MEDS: ATORVASTATIN 40 MG TAB PO SCH (08:00)
[2017-02-21] MEDS: POTASSIUM CHLORIDE 10 MEQ TABCR PO SCH ×2 (08:01→20:37)
[2017-02-21] MEDS: METOPROLOL TARTRATE 50 MG TAB PO SCH ×2 (08:01→20:36)
[2017-02-21] MEDS: GABAPENTIN 100 MG CAP PO SCH ×3 (08:02→20:36)
[2017-02-21] MEDS: CILOSTAZOL 100 MG TAB PO SCH ×2 (08:02→20:37)
[2017-02-21] MEDS: HEPARIN SOD 5000 UNIT/0.5 ML CARP SQ SCH ×2 (08:05→20:41)
[2017-02-21] MEDS: LIDODERM (LIDOCAINE) PATCH 5% TD SCH (08:06)
[2017-02-21] MEDS ORDERED: FUROSEMIDE INJ 20 MG in SYRINGE 0 ML IV SCH (09:00)
[2017-02-21] MEDS: FUROSEMIDE INJ 40 MG in SYRINGE 0 ML IV SCH ×4 (09:15→20:37)
[2017-02-21] MEDS: SODIUM CHLORIDE 0.9% 1000ML 1,000 ML IV SCH ×3 (09:22→23:19)
[2017-02-21] MEDS: LEVOFLOXACIN 750 MG TAB PO SCH (12:52)
[2017-02-21] MEDS: FENTANYL 12 MCG/HR TDSY TD SCH (15:59)
--- NOTE | 2017-02-21 16:09 | Nephrology Progress Note ---
Nephrology Progress Note Date of Service: Feb 21, 2017. Subjective controlled back pain; better today at po intake; on BOOST; no dyspnea and remains on RA; feels well; no N; did have transient A fib on monitor Objective Date Time Temp Pulse Resp B/P (MAP) Pulse Ox O2 Delivery O2 Flow Rate FiO2 02/21/17 15:42 Room Air 02/21/17 12:00 Room Air 02/21/17 11:52 36.9 68 18 89/53 (65) 90 Room Air 02/21/17 08:00 Room Air 02/21/17 07:23 37.2 85 18 112/70 (84) 92 Room Air 02/21/17 04:20 37.2 77 18 109/69 (82) 91 Room Air 02/21/17 04:00 Room Air 02/21/17 01:55 98 16 92 Room Air 02/21/17 00:00 91 Room Air 02/20/17 23:50 36.5 80 20 111/70 (84) 91 Room Air 02/20/17 21:00 107/65 (79) 02/20/17 20:00 97 Room Air 02/20/17 19:43 37.0 104 20 103/64 (77) 97 Room Air 02/20/17 19:24 100 16 90 Room Air 02/20/17 16:10 37.0 99 18 102/66 (78) 91 Room Air Physical Exam: sitting up in bed, on RA, oriented x 3 eomi dry mm supple neck RRR; no edema very diminished air mvt bl marysol bl bases soft NT abd; + schmidt L aka, no cyanosis boggs, fluent speech Current Inpatient Medications Medications (Trade) Dose Ordered Sig/Emely Route Start Time Stop Time Status Last Admin Dose Admin Heparin Sodium (Porcine) (Heparin Sq 5000 Unit/0.5ml) 5,000 unit Q12 SQ 02/15/17 21:00 03/17/17 20:59 02/21/17 08:05 5,000 UNIT Acetaminophen (Tylenol Tab) 650 mg Q4H PRN PO 02/15/17 16:00 03/17/17 15:59 02/19/17 03:25 650 MG Al Hydrox/Mg Hydrox/Simethicone (Maalox Max Susp) 15 ml Q4H PRN PO 02/15/17 16:00 03/17/17 15:59 Magnesium Hydroxide (Milk Of Magnesia Susp) 30 ml Q12H PRN PO 02/15/17 16:00 03/17/17 15:59 Ondansetron HCl (Zofran Inj) 4 mg Q6H PRN IV 02/15/17 16:00 03/17/17 15:59 02/18/17 10:54 4 MG Nitroglycerin (Nitrostat Tab) 0.4 mg UD PRN SL 02/15/17 16:00 03/17/17 15:59 Polyethylene (Miralax Powder Packet) 17 gm DAILY PRN PO 02/15/17 16:00 03/17/17 15:59 Aspirin (Ecotrin Tab) 325 mg QAM PO 02/16/17 09:00 03/18/17 08:59 02/21/17 08:00 325 MG Atorvastatin Calcium (Lipitor Tab) 40 mg DAILY PO 02/16/17 09:00 03/18/17 08:59 02/21/17 08:00 40 MG Cilostazol (Pletal Tab) 100 mg BID PO 02/15/17 21:00 03/17/17 20:59 02/21/17 08:02 100 MG Metoprolol Tartrate (Lopressor Tab) 50 mg BID PO 02/15/17 21:00 03/17/17 20:59 02/21/17 08:01 50 MG Lidocaine (Lidoderm Patch 5%) 1 patch DAILY TD 02/15/17 19:00 03/17/17 18:59 02/21/17 08:06 1 PATCH Miscellaneous (Remove Lidoderm Patch) 1 ea DAILY@21 N/A 02/15/17 23:59 03/17/17 23:58 02/20/17 21:12 1 EA Levalbuterol (Xopenex 0.63 Mg/ 3 Ml Neb) 0.63 mg Q6R INH 02/17/17 15:00 03/19/17 14:59 02/21/17 14:14 0.63 MG Zolpidem Tartrate (Ambien Tab) 5 mg HSZ PRN PO 02/17/17 20:30 03/19/17 20:29 02/17/17 20:38 5 MG Gabapentin (Neurontin Cap) 200 mg TID PO 02/18/17 10:00 03/20/17 09:59 02/21/17 12:52 200 MG Fentanyl (Duragesic Patch) 12 mcg Q72H TD 02/18/17 17:00 03/04/17 16:59 02/18/17 18:11 12 MCG Miscellaneous (Fentanyl Patch Remove & Waste) 1 ea Q3D N/A 02/21/17 16:59 03/23/17 16:58 02/21/17 15:52 1 EA Miscellaneous Information (Check Fentanyl Patch Placement) 1 ea QS N/A 02/19/17 00:00 03/21/17 00:00 02/21/17 15:52 1 EA Oxycodone/ Acetaminophen (Percocet 5-325mg Tab) 1 tab Q4H PRN PO 02/19/17 10:00 03/05/17 09:59 02/21/17 06:37 1 TAB Enteral Nutritional Formula (Boost Pudding) 1 cup TID PO 02/19/17 21:00 03/21/17 20:59 02/21/17 12:52 1 CUP Potassium Chloride (Klor-Con M10) 20 meq BID PO 02/19/17 21:00 03/18/17 20:59 02/21/17 08:01 20 MEQ Levofloxacin (Levaquin Tab) 750 mg DAILY@11 PO 02/20/17 11:00 02/22/17 23:59 02/21/17 12:52 750 MG Calcium/Vitamin D (Caltrate Plus Tab) 1 tab BID PO 02/20/17 21:00 03/22/17 20:59 02/21/17 07:59 1 TAB Furosemide 40 mg/ Syringe 4 ml @ 4 mls/min QID IV 02/21/17 09:00 03/20/17 13:59 02/21/17 09:22 4 MLS/MIN Sodium Chloride 1,000 ml @ 150 mls/hr Q6H40M IV 02/21/17 08:00 03/23/17 07:59 02/21/17 09:22 150 MLS/HR Last 24 Hours Test 02/21/17 00:00 02/21/17 06:02 02/21/17 15:55 Urine Random Sodium 116 mEq/L Urine Random Potassium 55.7 mEq/L White Blood Count 10.36 K/uL Red Blood Count 3.99 M/uL Hemoglobin 12.0 g/dL Hematocrit 35.3 % Mean Corpuscular Volume 88.5 fL Mean Corpuscular Hemoglobin 30.1 pg Mean Corpuscular Hemoglobin Concent 34.0 g/dl RDW Standard Deviation 42.3 fL RDW Coefficient of Variation 13.0 % Platelet Count 248 K/uL Mean Platelet Volume 8.6 fL Sodium Level 126 mmol/L Potassium Level 4.4 mmol/L Chloride Level 93 mmol/L Carbon Dioxide Level 25 mmol/L Anion Gap 8.0 mmol/L Blood Urea Nitrogen 11 mg/dl Creatinine 0.82 mg/dl Est Creatinine Clear Calc Drug Dose 49.0 ml/min Estimated GFR () 81.1 Estimated GFR (Non- 70.0 BUN/Creatinine Ratio 12.8 Random Glucose 104 mg/dl Calcium Level 8.8 mg/dl Magnesium Level 2.0 mg/dl Assessment & Plan 76 y/o F w/ daily EtOH use, severe emphysema not on home 02/inhalers, HTN, CAD and severe PVD on full dose daily asa, osteoporosis admitted 02/15 with confusion , severe back/chest pain, presenting sNa 122, K 2.2. 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 as well as low solute diet in setting of chronic EtOH use and hctz daily and uncontrolled pain and N can also have a role >sodium improved to 125 at first but dropped to high teens; admission urine more consistent w/ volume depletion -cont to hold hctz and amlodipine -suspect ASA full dose is obligate d/t PVD this pm, sNa better and K better/high normal >> -goal SBP for am is again 133; was overall fluid + yesterday so Na did not correct -cont K suppls 20 mEq bid -control pain/ N either of which worsen hypoNa >continue to limit fluids to 1.2L daily; boost does not count >cont NS w/ 20 mEq/L K at 150 mL hourly and cont increased lasix qid IV 40 mg -f/u 1599, 1999 urgent bmp Hypomagnesemia resolved; ck daily HTN and elevated troponin -cont BB; CCB and ACEI on hold for now; controlled or even low today w/ AFib -cardiology f/u as indicated > DSE done -?role for EtOH Hypoxia, PNA -on levaquin Compression frxs T spine -f/u ortho recs/pain mgt/brace Appreciate consult; will follow with you. Care coordinated w/ Dr Barney
[2017-02-21 16:35] LABS: BUN/CREATININE RATIO 15.4 (10-20); CREATININE 0.78 mg/dl (0.60-1.20); POTASSIUM 4.5 mmol/L (3.5-5.1)
[2017-02-21] MEDS ORDERED: FENTANYL PATCH REMOVE & WASTE SCH (16:59)
--- NOTE | 2017-02-21 22:09 | Progress Note ---
Medicine Progress Note Date & Time of Visit: Feb 21, 2017 at 17:38. Subjective tolerating PO afebrile pain controlled and orthotic feels very comfortable and supportive to patient denies chest pain or shortness of breath. asking when she can go home. Objective Last 8 Hrs Date Time Temp Pulse Resp B/P (MAP) Pulse Ox O2 Delivery O2 Flow Rate FiO2 02/21/17 16:03 37.1 79 16 113/73 (86) 92 Room Air 02/21/17 15:42 Room Air 02/21/17 12:00 Room Air 02/21/17 11:52 36.9 68 18 89/53 (65) 90 Room Air Physical Exam: GEN: WNWD, in no acute distress, alert and appropriate HEENT: NC/AT, normal sclerae, MMM CARDIO: reg rate, S1/2 heard without m/g/r LUNGS: CTA bilaterally, no crackles, rales or wheezes, good diaphragmatic excursion. Breath sounds are faint both posteriorly and anteriorly ABD: soft, non-tender, non-distended, no rebound or guarding, +BS EXTREMITY: RP and DP palpable 2+ on RLE, L AKA with well-healed stump, no LE swelling or edema, extremities are warm and well-perfused NEURO: CN 2-12 grossly intact, sensation intact throughout, no gross focal deficits. MUSC: moves all extremities equally SKIN: warm and dry, notably tanned. Laboratory Results: 02/21/17 06:02 Test 02/15/17 10:55 02/15/17 15:15 02/15/17 19:38 02/15/17 19:40 Prothrombin Time 11.0 SECONDS (9.0-12.0) Prothromb Time International Ratio 1.0 (0.9-1.1) Osmolality 257 mOsm/kg (280-300) Total Bilirubin 0.6 mg/dl (0.2-1) Aspartate Amino Transf (AST/SGOT) 32 U/L (15-37) Alanine Aminotransferase (ALT/SGPT) 35 U/L (12-78) Alkaline Phosphatase 76 U/L (45-117) Pro-B-Type Natriuretic Peptide 210 pg/ml (0-900) Total Protein 8.5 gm/dl (6.4-8.2) Albumin 4.0 gm/dl (3.4-5.0) Globulin 4.5 gm/dl (2.5-4.0) Albumin/Globulin Ratio 0.9 (0.9-2) Urine Color YELLOW Urine Appearance CLEAR (CLEAR) Urine pH 6.0 (4.5-7.5) Urine Specific [place] 1.033 (1.000-1.030) Urine Protein 1+ (NEG) Urine Glucose (UA) 2+ (NEG) Urine Ketones 1+ (NEG) Urine Occult Blood TRACE (NEG) Urine Nitrite NEG (NEG) Urine Bilirubin NEG (NEG) Urine Urobilinogen NEG (NEG) Urine Leukocyte Esterase TRACE (NEG) Urine WBC (Auto) 1-5 /hpf (0-5) Urine RBC (Auto) 0-4 /hpf (0-4) Urine Hyaline Casts (Auto) 1-5 /lpf (0-5) Urine Epithelial Cells (Auto) 20-30 /lpf (0-5) Urine Bacteria (Auto) NEG (NEG) Lactic Acid Level 1.0 mmol/L (0.4-2.0) Urine Legionella Antigen NOT DETECTED (NOT DETECTED) Test 02/15/17 22:00 02/16/17 06:09 02/19/17 05:15 02/21/17 00:00 Estimated Average Glucose 126 mg/dl Hemoglobin A1c 6.0 % (4.5-5.6) Immature Granulocyte % (Auto) 0.4 % White Blood Count 16.76 K/uL (4.8-10.8) Red Blood Count 4.26 M/uL (4.2-5.4) Hemoglobin 13.7 g/dL (12.0-16.0) Hematocrit 36.2 % (37-47) Mean Corpuscular Volume 85.0 fL (80-100) Mean Corpuscular Hemoglobin 32.2 pg (25-34) Mean Corpuscular Hemoglobin Concent 37.8 g/dl (32-36) Platelet Count 233 K/uL (130-400) Mean Platelet Volume 9.1 fL (7.4-10.4) Neutrophils (%) (Auto) 86.3 % Lymphocytes (%) (Auto) 9.5 % Monocytes (%) (Auto) 3.7 % Eosinophils (%) (Auto) 0.0 % Basophils (%) (Auto) 0.1 % Neutrophils # (Auto) 14.47 K/uL (1.4-6.5) Lymphocytes # (Auto) 1.59 K/uL (1.2-3.4) Monocytes # (Auto) 0.62 K/uL (0.11-0.59) Eosinophils # (Auto) 0.00 K/uL (0-0.5) Basophils # (Auto) 0.02 K/uL (0-0.2) Immature Granulocyte # (Auto) 0.06 K/uL (0.00-0.02) Total Creatine Kinase 529 U/L (26-192) Creatine Kinase MB 8.0 ng/ml (0.5-3.6) Creatine Kinase MB Ratio 1.5 (0-3.0) Troponin I 0.920 ng/ml (0-0.045) Urine Osmolality 495 mOms/kg (500-800) Urine Random Sodium 116 mEq/L Urine Random Potassium 55.7 mEq/L Test 02/21/17 06:02 02/21/17 15:55 02/21/17 21:50 Red Blood Count 3.99 M/uL (4.2-5.4) Mean Corpuscular Volume 88.5 fL (80-100) Mean Corpuscular Hemoglobin 30.1 pg (25-34) Mean Corpuscular Hemoglobin Concent 34.0 g/dl (32-36) RDW Standard Deviation 42.3 fL (36.4-46.3) RDW Coefficient of Variation 13.0 % (11.5-14.5) Mean Platelet Volume 8.6 fL (7.4-10.4) Magnesium Level 2.0 mg/dl (1.8-2.4) Est Creatinine Clear Calc Drug Dose 51.6 ml/min Date/Time Source Procedure Growth Status 02/15/17 15:09 Blood Blood Culture - Final NO GROWTH Complete Last 24 Hours Test 02/21/17 00:00 02/21/17 06:02 02/21/17 15:55 Urine Random Sodium 116 mEq/L Urine Random Potassium 55.7 mEq/L White Blood Count 10.36 K/uL Red Blood Count 3.99 M/uL Hemoglobin 12.0 g/dL Hematocrit 35.3 % Mean Corpuscular Volume 88.5 fL Mean Corpuscular Hemoglobin 30.1 pg Mean Corpuscular Hemoglobin Concent 34.0 g/dl RDW Standard Deviation 42.3 fL RDW Coefficient of Variation 13.0 % Platelet Count 248 K/uL Mean Platelet Volume 8.6 fL Sodium Level 126 mmol/L 126 mmol/L Potassium Level 4.4 mmol/L 4.5 mmol/L Chloride Level 93 mmol/L 94 mmol/L Carbon Dioxide Level 25 mmol/L 27 mmol/L Anion Gap 8.0 mmol/L 5.0 mmol/L Blood Urea Nitrogen 11 mg/dl 12 mg/dl Creatinine 0.82 mg/dl 0.78 mg/dl Est Creatinine Clear Calc Drug Dose 49.0 ml/min 51.6 ml/min Estimated GFR () 81.1 86.2 Estimated GFR (Non- 70.0 74.4 BUN/Creatinine Ratio 12.8 15.4 Random Glucose 104 mg/dl 97 mg/dl Calcium Level 8.8 mg/dl 9.0 mg/dl Magnesium Level 2.0 mg/dl Assessment & Plan 76 yo F who presented with metabolic encephalopathy 2/2 pneumonia in setting of back and chest pain--found to have nontraumatic T6 compression fracture. Evaluated by ortho spine and fitted with an orthotic. Pain control efforts with Fentanyl patch, PRN percocet and Lidoderm patch also effective. 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 1. Metabolic encephalopathy 2/2 pneumonia-Leukocytosis and symptoms improved, oxygenating well on room air. No coughing, fevers or chills are present. Cont Levaquin, day 6/. Change to PO. 2. Hyponatremia-pain and nausea improved. Per Nephro cont Lasix, IVF and fluid restriction (1.2L). Pt feels well. Na improved from 124 to 127 to 126 today with goal 131 pepr Nephrology. Pt is eating well at this time. Cont current therapy. Cont Corbett for accurate I/Os. Cont potassium replacement in setting of Lasix use. HCTZ held. 3. Thoracic compression fracture-no trauma per patient. She was fitted with Orthotics. Pain control is effective at this time. Pt advised on constipation in setting of narcotics. Awaiting further Ortho Spine recommendations based on MRI findings being more acute. 4. Elevated troponin-likely 2/2 demand ischemia in setting of severe PVD and known CAD s/p 4 stents. DSE was performed this admission (02/18) which was negative. Pt denies chest pain at this time. 5. CAP-cont Levaquin. 6. 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 She is at her baseline per PT and return home when stable recommended. 7. PVD/CAD s/p stents-cont medical management with ASA 325, Lipitor 40, Pletal 100 BID, Lisinopril 10mg daily, Lopressor 50mg PO BID. 8. Osteoporosis-on Fosamax weekly. Hold until further advised by Ortho. Started Ca/D replacement BID 9. HTN-controlled on meds above. Notably HCTZ and amlodipine were stopped. DVT Ppx: Heparin SQ Code status: FULL PCP: Lara Dispo: to home when medically stable [facility] Medications: Current Inpatient Medications Medications (Trade) Dose Ordered Sig/Emely Route Start Time Stop Time Status Last Admin Dose Admin Heparin Sodium (Porcine) (Heparin Sq 5000 Unit/0.5ml) 5,000 unit Q12 SQ 02/15/17 21:00 03/17/17 20:59 02/21/17 08:05 5,000 UNIT Acetaminophen (Tylenol Tab) 650 mg Q4H PRN PO 02/15/17 16:00 03/17/17 15:59 02/19/17 03:25 650 MG Al Hydrox/Mg Hydrox/Simethicone (Maalox Max Susp) 15 ml Q4H PRN PO 02/15/17 16:00 03/17/17 15:59 Magnesium Hydroxide (Milk Of Magnesia Susp) 30 ml Q12H PRN PO 02/15/17 16:00 03/17/17 15:59 Ondansetron HCl (Zofran Inj) 4 mg Q6H PRN IV 02/15/17 16:00 03/17/17 15:59 02/18/17 10:54 4 MG Nitroglycerin (Nitrostat Tab) 0.4 mg UD PRN SL 02/15/17 16:00 03/17/17 15:59 Polyethylene (Miralax Powder Packet) 17 gm DAILY PRN PO 02/15/17 16:00 03/17/17 15:59 Aspirin (Ecotrin Tab) 325 mg QAM PO 02/16/17 09:00 03/18/17 08:59 02/21/17 08:00 325 MG Atorvastatin Calcium (Lipitor Tab) 40 mg DAILY PO 02/16/17 09:00 03/18/17 08:59 02/21/17 08:00 40 MG Cilostazol (Pletal Tab) 100 mg BID PO 02/15/17 21:00 03/17/17 20:59 02/21/17 08:02 100 MG Metoprolol Tartrate (Lopressor Tab) 50 mg BID PO 02/15/17 21:00 03/17/17 20:59 02/21/17 08:01 50 MG Lidocaine (Lidoderm Patch 5%) 1 patch DAILY TD 02/15/17 19:00 03/17/17 18:59 02/21/17 08:06 1 PATCH Miscellaneous (Remove Lidoderm Patch) 1 ea DAILY@21 N/A 02/15/17 23:59 03/17/17 23:58 02/20/17 21:12 1 EA Levalbuterol (Xopenex 0.63 Mg/ 3 Ml Neb) 0.63 mg Q6R INH 02/17/17 15:00 03/19/17 14:59 02/21/17 14:14 0.63 MG Zolpidem Tartrate (Ambien Tab) 5 mg HSZ PRN PO 02/17/17 20:30 03/19/17 20:29 02/17/17 20:38 5 MG Gabapentin (Neurontin Cap) 200 mg TID PO 02/18/17 10:00 03/20/17 09:59 02/21/17 12:52 200 MG Fentanyl (Duragesic Patch) 12 mcg Q72H TD 02/18/17 17:00 03/04/17 16:59 02/21/17 15:59 12 MCG Miscellaneous (Fentanyl Patch Remove & Waste) 1 ea Q3D N/A 02/21/17 16:59 03/23/17 16:58 02/21/17 15:52 1 EA Miscellaneous Information (Check Fentanyl Patch Placement) 1 ea QS N/A 02/19/17 00:00 03/21/17 00:00 02/21/17 15:52 1 EA Oxycodone/ Acetaminophen (Percocet 5-325mg Tab) 1 tab Q4H PRN PO 02/19/17 10:00 03/05/17 09:59 02/21/17 06:37 1 TAB Enteral Nutritional Formula (Boost Pudding) 1 cup TID PO 02/19/17 21:00 03/21/17 20:59 02/21/17 12:52 1 CUP Potassium Chloride (Klor-Con M10) 20 meq BID PO 02/19/17 21:00 03/18/17 20:59 02/21/17 08:01 20 MEQ Levofloxacin (Levaquin Tab) 750 mg DAILY@11 PO 02/20/17 11:00 02/22/17 23:59 02/21/17 12:52 750 MG Calcium/Vitamin D (Caltrate Plus Tab) 1 tab BID PO 02/20/17 21:00 03/22/17 20:59 02/21/17 07:59 1 TAB Furosemide 40 mg/ Syringe 4 ml @ 4 mls/min QID IV 02/21/17 09:00 03/20/17 13:59 02/21/17 16:01 4 MLS/MIN Sodium Chloride 1,000 ml @ 150 mls/hr Q6H40M IV 02/21/17 08:00 03/23/17 07:59 02/21/17 14:40 150 MLS/HR
[2017-02-21 22:19] LABS: BUN/CREATININE RATIO 15.1 (10-20); CALCIUM 8.6 mg/dl (8.5-10.1); CREATININE 0.86 mg/dl (0.60-1.20); POTASSIUM 4.1 mmol/L (3.5-5.1)
[2017-02-22] VITALS (7 sets, daily range): BP systolic 99–147; BP diastolic 62–84; PULSE 73–90; TEMP 36.7–37.1; O2SAT 92–94
[2017-02-22] MEDS: LEVALBUTEROL 0.63MG/3 ML NEB INH SCH ×3 (01:56→14:00)
[2017-02-22] MEDS: SODIUM CHLORIDE 0.9% 1000ML 1,000 ML IV SCH ×2 (05:55→11:31)
[2017-02-22 07:34] LABS: BUN/CREATININE RATIO 13.6 (10-20); CALCIUM 8.6 mg/dl (8.5-10.1); CREATININE 0.69 mg/dl (0.60-1.20); MAGNESIUM 1.8 mg/dl (1.8-2.4); POTASSIUM 3.8 mmol/L (3.5-5.1)
[2017-02-22] MEDS: CHECK FENTANYL PATCH PLACEMENT SCH (08:00)
[2017-02-22] MEDS: CILOSTAZOL 100 MG TAB PO SCH (08:07)
[2017-02-22] MEDS: FUROSEMIDE INJ 40 MG in SYRINGE 0 ML IV SCH ×2 (08:07→13:00)
[2017-02-22] MEDS: CALCIUM 600MG + VIT D 400 IU TAB PO SCH (08:07)
[2017-02-22] MEDS: ASPIRIN 325 MG ECTAB PO SCH (08:08)
[2017-02-22] MEDS: ATORVASTATIN 40 MG TAB PO SCH (08:08)
[2017-02-22] MEDS: POTASSIUM CHLORIDE 10 MEQ TABCR PO SCH (08:09)
[2017-02-22] MEDS: LIDODERM (LIDOCAINE) PATCH 5% TD SCH (08:10)
[2017-02-22] MEDS: GABAPENTIN 100 MG CAP PO SCH ×2 (08:10→14:23)
[2017-02-22] MEDS: HEPARIN SOD 5000 UNIT/0.5 ML CARP SQ SCH (08:13)
[2017-02-22] MEDS: BOOST VANILLA PUDDING CUP PO SCH ×2 (09:47→14:23)
[2017-02-22] MEDS: METOPROLOL TARTRATE 50 MG TAB PO SCH (09:48)
[2017-02-22] MEDS ORDERED: OXYC-57 PO (11:16)
[2017-02-22] MEDS ORDERED: DRGTP12 TD (11:16)
[2017-02-22] MEDS ORDERED: FURO40TA3 PO (11:16)
[2017-02-22] MEDS ORDERED: LDDP5 TD (11:16)
[2017-02-22] MEDS ORDERED: POTA-65 PO (11:19)
[2017-02-22] MEDS: LEVOFLOXACIN 750 MG TAB PO SCH (11:26)
--- NOTE | 2017-02-22 11:41 | Discharge Instructions ---
Discharge Instructions Date of Service Feb 22, 2017. Admission Reason for Admission: Hyponatremia, Pneumonia Discharge Discharge Diagnosis / Problem: hyponatremia, pneumonia Discharge Goals Goal(s): Prevent Disease Progression Activity Recommendations Activity Limitations: per Instructions/Follow-up section . Instructions / Follow-Up Instructions / Follow-Up Please take all medications as instructed. You will need non-fasting bloodwork to be completed on Wed of this week, 02/24. The results will be sent to both Dr. Szymanski (Nephrology) and Dr. Bermudez. Based on these lab values, your Lasix may be adjusted. A lab prescription was provided for you at discharge to get this done. A repeat chest xray is recommended in 4-6 weeks to ensure complete resolution of your pneumonia. This will be ordered by Dr. Bermudez. You have a 7mm pulmonary nodule in the right upper lung which will need to be re -evaluated with a CT scan of the chest in 6 months. This will be ordered by Dr. Bermudez. Please avoid all alcohol for the time being. Please stick to a 1.2L (1200ml) fluid restriction daily while continuing on the Lasix as treatment to ensure your sodium level continues to increase. Please follow-up with Orthopedic Spine as an outpatient for continued management of your back fracture. You were seen by Dr. Toni Dc while hospitalized. Please establish care with Nephrology as an outpatient within two weeks of discharge from the hospital for follow-up of your sodium level. You were seen by Dr. Domi Szymanski while hospitalized. Please follow-up with Dr. Ay[place] [facility] [place] continued monitoring of heart rhythm. As we discussed you had one episode of lone atrial fibrillation while undergoing treatment for pneumonia that lasted 5 minutes and did not return. At this time, no further treatment is warranted. You have a follow-up appointment with Dr. Bermudez on 02/25 @ 1100 for follow-up from this hospitalization. Please bring all paperwork from discharge with you. It was a pleasure taking care of you! Call if you have any questions or problems. You can reach a [facility] hospitalist on duty at [facility] 24 hours a day by calling [phone]. Take care of yourself. Mckenna Barney, DO [facility] Hospitalist Current Hospital Diet Patient's current hospital diet: Low Sodium Diet (2gm Na) Discharge Diet Recommended Diet: AHA Diet (Heart Healthy) Fluid Restriction: 1200 ml (5 cups) Procedures Procedures Performed: DSE (02/18) Pending Studies Studies pending at discharge: no Laboratory Results Hemoglobin A1c Test 02/15/17 22:00 Range/Units Estimated Average Glucose 126 mg/dl Hemoglobin A1c 6.0 H 4.5-5.6 % Medical Emergencies . Who to Call and When: Medical Emergencies: If at any time you feel your situation is an emergency, please call 911 immediately. . Non-Emergent Contact Non-Emergency issues call your: Primary Care Provider . . "Provider Documentation" section prepared by Mckenna Barney. . VTE Core Measure Inpt VTE Proph given/why not?: Unfractionated heparin SQ [place] Drug Monitoring Program Search Results: patient reviewed within database, no issues identified
--- NOTE | 2017-02-22 11:45 | Discharge Summary ---
Discharge Summary Date of Service Feb 22, 2017. Discharge Summary Admission Date: Feb 15, 2017 at 16:08 Discharge Date: Feb 22, 2017 Discharge Disposition: Home Principal Diagnosis: metabolic encephalopathy 2/2 pneumonia CAP Hyponatremia EtOH use Thoracic compression fracture elevated troponin likely 2/2 demand ischemia history of L AKA PVD/CAD s/p stents Osteoporosis HTN Procedures: DSE-02/18 negative for inducible ischemia Vaccinations: None. Consultations: Nephro-Stephon Pending Studies/Follow-Up: see instructions below. Medication Reconciliation New Medications: Furosemide (Lasix) 40 Mg Tab 40 MG PO BID for 30 Days, #60 TAB Continue taking with potassium supplements and fluid restriction until otherwise instructed by physician. Fentanyl (Fentanyl) 12 Mcg Tdsy 12 MCG TD Q72H for 7 Days, #5 PATCH Lidocaine (Lidocaine) 1 Patch Tdsy 1 PATCH TD DAILY PRN for Pain for 15 Days, #15 PATCH 1 Refill Oxycodone/Acetaminophen 5MG/325MG (Percocet 5MG/325MG) Tab 1 TAB PO Q4H PRN for Pain for 7 Days, #15 TAB Potassium Chloride (Potassium Chloride ER) 20 Meq Tab 20 MEQ PO DAILY for 30 Days, #30 TAB Continue taking while taking Lasix (furosemide). Continued Medications: Amlodipine Besylate (Amlodipine Besylate) 10 Mg Tab 10 MG PO DAILY Aspirin (Aspirin) 325 Mg Tab 325 MG PO QAM, TAB Atorvastatin (Atorvastatin Calcium) 40 Mg Tab 40 MG PO DAILY Calcium Carbonate (Calcium) 600 Mg Tab 600 MG PO DAILY Cilostazol (Pletal) 100 Mg Tab 100 MG PO BID, TAB Metoprolol Tartrate (Metoprolol Tartrate) 50 Mg Tab 50 MG PO BID Multiple Vitamin (Multivitamin) 1 Tab Tab 1 TAB PO QAM, TAB Nitroglycerin (Nitrostat) 0.4 Mg Tab 0.4 MG UT PRN, TAB [place]-3 Fatty Acids (Fish Oil) 1 Cap Cap 1 CAP PO DAILY Discontinued Medications: Alendronate Sodium (Fosamax) 70 Mg Tab 70 MG PO QMON, TAB Hydrochlorothiazide (Hydrochlorothiazide) 25 Mg Tab 25 MG PO DAILY Lisinopril (Lisinopril) 40 Mg Tab 40 MG PO DAILY Admission Information HPI (per Admitting provider): This is a 76yo female with a PMH of CAD (s/p stent in 90s), HTN, HLD, AAA ( without rupture), carotid stenosis, PVD (s/p L AKA in 09/10) and osteoporosis who presents with back and chest pain since this morning. Patient was in a normal state of health until waking up this morning with 8/10 constant mid-back pain that she describes as heavy and made worse with movement. Denies any associated paresthesias or weakness of LE. Has not had back pain in the past. Describes mid-sternal chest pain as dull, constant and non-radiating. States that it is a 6/10 in severity. Has a remote history of chest pain but has not experienced pain similar to this since a stent was placed in the . States that she used to see a plate finisher for management of CAD, HTN, HLD and AAA but they have since moved and she has not been regularly seeing anyone. Does not remember a recent stress test or echo. Along with back pain and chest pain today, patient also endorses two episodes of vomiting and feeling confused. Family agrees that patient is not mentating at baseline, having difficulty remembering details of events leading up to hospitalization today. Denies fever, chills, headache, vision changes, dyspnea, SOB, nausea, abdominal pain, dysuria, diarrhea, MSK pain, swelling or weakness in extremities. Physical Exam (per Admitting): General Appearance: + mild distress Head: normocephalic, atraumatic Eyes: normal inspection, PERRL, sclerae normal ENT: hearing grossly normal Respiratory/Chest: chest non-tender, no respiratory distress, no accessory muscle use, + decreased breath sounds (2/2 reduced inspiratory effort ) Cardiovascular: regular rate, rhythm, no JVD, no murmur, + abnormal peripheral pulses (diminished R pedal pulse ) Abdomen/GI: normal bowel sounds, non tender, soft, no organomegaly Back: normal inspection, + pertinent finding (TTP of thoracic spine. Reduced ROM 2/2 pain) Extremities/Musculoskelatal: normal inspection (AKA of L leg ), no calf tenderness, normal capillary refill, no pedal edema Neurologic/Psych: no motor/sensory deficits, alert (oriented to person, place and situation. Not oriented to time.), normal mood/affect Skin: normal color, warm/dry, no rash Hospital Course 76 yo F who presented with metabolic encephalopathy 2/2 pneumonia in setting of back and chest pain--found to have nontraumatic T6 compression fracture. Evaluated by ortho spine and fitted with an orthotic. Pain control efforts with Fentanyl patch, PRN percocet and Lidoderm patch also effective. 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 1. Metabolic encephalopathy 2/2 pneumonia-Leukocytosis and symptoms improved, oxygenating well on room air. No coughing, fevers or chills are present. Cont Levaquin, day 12/05. Change to PO. 2. Hyponatremia-pain and nausea improved. Per Nephro cont Lasix, IVF and fluid restriction (1.2L). Pt feels well. Na improved from 124 to 127 to 126 today with goal 131 pepr Nephrology. Pt is eating well at this time. Cont current therapy. Cont Corbett for accurate I/Os. Cont potassium replacement in setting of Lasix use. HCTZ held. 3. Thoracic compression fracture-no trauma per patient. She was fitted with Orthotics. Pain control is effective at this time. Pt advised on constipation in setting of narcotics. Awaiting further Ortho Spine recommendations based on MRI findings being more acute. 4. Elevated troponin-likely 2/2 demand ischemia in setting of severe PVD and known CAD s/p 4 stents. DSE was performed this admission (02/18) which was negative. Pt denies chest pain at this time. 5. CAP-cont Levaquin. 6. 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 She is at her baseline per PT and return home when stable recommended. 7. PVD/CAD s/p stents-cont medical management with ASA 325, Lipitor 40, Pletal 100 BID, Lisinopril 10mg daily, Lopressor 50mg PO BID. 8. Osteoporosis-on Fosamax weekly. Hold until further advised by Ortho. Started Ca/D replacement BID 9. HTN-controlled on meds above. Notably HCTZ and amlodipine were stopped. On day of discharge she was afebrile and hemodynamically stable for 48 hours. She was mentating and ambulating at baseline (although decided to not use her prosthetic here so was mostly bedbound). Her Na was 130, and the case was discussed with Nephrology with a plan to transition her to Lasix 40mg PO BID along with fluid restriction in order to continue to increase the sodium as outpatient. This instruction was reviewed with both she and her who verbalized understanding with intent to comply. By discharge, she had already finished a course of abx and from a clinical perspective her pneumonia symptoms had completely resolved and she was asymptomatic. She stated that using her orthotic along with the current pain control meds really made her back feel more comfortable and she was looking forward to getting home and using the orthotic a little more. Repeat labwork was ordered in two days to monitor her sodium levels and adjust her lasix as needed. She was able to void spontaneously after Corbett removal and she was discharged in stable condition. Total time spent on discharge = 60 minutes This includes examination of the patient, discharge planning, medication reconciliation, and communication with other providers[place] [address] Discharge Medical Patient Name: Dory Florian Unit Number: [id number] Date of : 1940 Patient Status: Admitted Inpatient Attending Doctor: Mckenna Barney DO DI: Medical v4 Discharge Instructions Date of Service Feb 22, 2017. Admission Reason for Admission: Hyponatremia, Pneumonia Discharge Discharge Diagnosis / Problem: hyponatremia, pneumonia Discharge Goals Goal(s): Prevent Disease Progression Activity Recommendations Activity Limitations: per Instructions/Follow-up section . Instructions / Follow-Up Instructions / Follow-Up Please take all medications as instructed. You will need non-fasting bloodwork to be completed on Wed of this week, 02/24. The results will be sent to both Dr. Szymanski (Nephrology) and Dr. Bermudez. Based on these lab values, your Lasix may be adjusted. A lab prescription was provided for you at discharge to get this done. A repeat chest xray is recommended in 4-6 weeks to ensure complete resolution of your pneumonia. This will be ordered by Dr. Bermudez. You have a 7mm pulmonary nodule in the right upper lung which will need to be re -evaluated with a CT scan of the chest in 6 months. This will be ordered by Dr. Bermudez. Please avoid all alcohol for the time being. Please stick to a 1.2L (1200ml) fluid restriction daily while continuing on the Lasix as treatment to ensure your sodium level continues to increase. Please follow-up with Orthopedic Spine as an outpatient for continued management of your back fracture. You were seen by Dr. Toni Dc while hospitalized. Please establish care with Nephrology as an outpatient within two weeks of discharge from the hospital for follow-up of your sodium level. You were seen by Dr. Domi Szymanski while hospitalized. Please follow-up with Dr. Ayala in Cardiology[facility] for continued monitoring of heart rhythm. As we discussed you had one episode of lone atrial fibrillation while undergoing treatment for pneumonia that lasted 5 minutes and did not return. At this time, no further treatment is warranted. You have a follow-up appointment with Dr. Bermudez on 02/25 @ 1100 for follow-up from this hospitalization. Please bring all paperwork from discharge with you. It was a pleasure taking care of you! Call if you have any questions or problems. You can reach a [facility] hospitalist on duty at [facility] 24 hours a day by calling [phone]. Take care of yourself. Mckenna Barney DO [facility] Hospitalist Current Hospital Diet Patient's current hospital diet: Low Sodium Diet (2gm Na) Discharge Diet Recommended Diet: AHA Diet (Heart Healthy) Fluid Restriction: 1200 ml (5 cups) Procedures Procedures Performed: DSE (02/18) Pending Studies Studies pending at discharge: no Laboratory Results Hemoglobin A1c Test 02/15/17 22:00 Range/Units Estimated Average Glucose 126 mg/dl Hemoglobin A1c 6.0 H 4.5-5.6 % Medical Emergencies . Who to Call and When: Medical Emergencies: If at any time you feel your situation is an emergency, please call 911 immediately. . Non-Emergent Contact Non-Emergency issues call your: Primary Care Provider . . "Provider Documentation" section prepared by Mckenna Barney. . VTE Core Measure Inpt VTE Proph given/why not?: Unfractionated heparin SQ [place] Drug Monitoring Program Search Results: patient reviewed within database, no issues identified Additional Copies To Heather Zhou MD; Jose Dc D.O.; Adriel Ayala M.D.; Arturo Bermudez M.D.
--- NOTE | 2017-02-25 13:25 | EDITING REQUIRED CODING QUERY ---
CODING QUERY To promote full compliance with coding requirements relating to patient care, provider participation is requested in all cases of lab aide uncertainty. Please assist us with the question(s) below: Coding Question(s): Patient admitted with chest and back pain, elevated troponin. Dx'd with pneumonia and metabolic encephalopathy. History of CAD with stents. Type II IL/demand ischemia documented on 02/17, however cardiology note documents "doubt myocardial ischemia. Echo negative. Discharge Summary does not document IL/Type II demand ischemia. Please check below the diagnosis you were treating during this inpatient stay pertaining to the elevated troponin and cardiac ischemia. Thank you. Jte Cota [employer] [facility] Physician's Response(s): ____x__ Demand Ischemia Type 2 Myocardial Infarction/Demand Ischemia Elevated Troponin Other/ Please document: Principal Diagnosis: "_that condition established after study, to be chiefly responsible for occasioning the admission of the patient to the hospital for care." Co-Existing Principal Diagnosis: "_when two or more diagnoses equally meet the criteria for principal diagnosis as determined by the circumstances of admission, diagnostic work up, and/or therapy provided, and the Alphabetic Index, Tabular List, or another coding guideline does not provide sequencing direction, any one of the diagnoses may be sequenced first." "When the physician has documented what appears to be a current diagnosis in the body of the record, but has not included the diagnosis in the final diagnostic statement, the physician should be asked whether the diagnosis should be added." (Source Coding Clinic 2 QTR90. p3-4)
== END 2017-02-22 15:40 | disposition home or self-care (01) | DRG 193 ==
LOC: C.EDB 10:29 → C.2T 16:08 → ENRESERV 16:22 → C.2T 02-16 17:59
PROVIDERS: ADMIT Family Medicine; ATTEND Hospitalist
DX: J18.9 Pneumonia, unspecified organism (principal); G93.41 Metabolic encephalopathy; E22.2 Syndrome of inappropriate secretion of antidiuretic hormone; M48.54XA Collapsed vertebra, not elsewhere classified, thoracic region, initial encounter for fracture; I24.8 Other forms of acute ischemic heart disease; M48.54XS Collapsed vertebra, not elsewhere classified, thoracic region, sequela of fracture; I71.4 Abdominal aortic aneurysm, without rupture; I25.10 Atherosclerotic heart disease of native coronary artery without angina pectoris; E78.5 Hyperlipidemia, unspecified; I73.9 Peripheral vascular disease, unspecified; Z95.5 Presence of coronary angioplasty implant and graft; I10 Essential (primary) hypertension; R09.02 Hypoxemia; M81.0 Age-related osteoporosis without current pathological fracture; Z89.619 Acquired absence of unspecified leg above knee; E83.42 Hypomagnesemia; I65.29 Occlusion and stenosis of unspecified carotid artery; E87.6 Hypokalemia; J43.9 Emphysema, unspecified; Z87.891 Personal history of nicotine dependence; Y92.89 Other specified places as the place of occurrence of the external cause; X58.XXXA Exposure to other specified factors, initial encounter; X58.XXXS Exposure to other specified factors, sequela

== ENCOUNTER → 2017-03-23 | Outpatient (CLI) | payer OTHER ==
[~2017-03-23] MED LIST changes: -ALEN70TA2 PO; -AMLO5TAB4 PO; +CALC-393 PO; -CALC600T14 PO; +CILO100T PO; -CILO100T15 PO; +DRGTP12 TD; -FISHOIL PO; +FURO40TA3 PO; +LDDP5 TD; -LPR25 PO; +LPT40 PO; +METO50TA17 PO; +NRV/10 PO; +OMEGCAP2 PO; +OXYC-57 PO; +POTA-65 PO
--- NOTE | 2017-03-23 10:02 | DIAGNOSTIC IMAGING REPORT ---
CHEST 2 VIEWS ROUTINE HISTORY: 76 years-old Female BILATERAL INFILTRATES WHEN HOSPITALIZED 02/15/17 follow-up study to assess pulmonary opacities. COMPARISON: Chest radiograph 02/18/2017, 02/16/2017. CTA of the chest 02/15/2017 TECHNIQUE: Frontal and lateral views of the chest FINDINGS: Cardiac silhouette is within normal limits. There is atherosclerosis of the aorta. Mild biapical pleural-parenchymal scarring is noted with background moderate emphysema and hyperinflation. There is improved aeration of the bilateral lung bases is only minimal residual subsegmental opacities present. Chronic background interstitial coarsening is noted. The bones are grossly intact. Multilevel degenerative changes are seen in the spine. Unchanged upper thoracic compression deformity. IMPRESSION: 1. Improved aeration of the lung bases with only minimal hazy bibasilar opacities present suggesting atelectasis or scarring, less likely residual pneumonia. 2. Emphysema with chronic background interstitial coarsening. The above report was generated using voice recognition software. It may contain grammatical, syntax or spelling errors. Electronically signed by: Jose Cantor M.D. 03/23/2017 10:00 AM Dictated Date/Time: 03/23/2017 9:58 AM
== END | disposition home or self-care (01) ==
LOC: C.RAD 09:28
PROVIDERS: ATTEND Family Medicine
DX: R91.8 Other nonspecific abnormal finding of lung field (principal); J43.9 Emphysema, unspecified

== ENCOUNTER → 2017-06-10 | Outpatient (CLI) | payer OTHER ==
[~2017-06-10] MED LIST changes: -FURO40TA3 PO; +OPTIRAY 320 IV PRN
--- NOTE | 2017-06-10 09:18 | DIAGNOSTIC IMAGING REPORT ---
CT ANGIOGRAM OF THE ABDOMEN AND PELVIS CLINICAL HISTORY: Abdominal aortic aneurysm. COMPARISON STUDY: CT angiogram of the abdomen and pelvis dated 11/03/2016. TECHNIQUE: Following the IV administration of 94 cc of Optiray 320, CT angiogram of the abdomen and pelvis was performed from the lung bases the proximal femora. Images are reviewed in the axial, sagittal, and coronal planes. 3-D MIPS images are created and assessed. IV contrast was administered without complication. A dose lowering technique was utilized adhering to the principles of ALARA. CT DOSE: 239.91 mGy.cm FINDINGS: Lower chest: The heart is enlarged and without pericardial effusion. The coronary arteries are densely calcified. Advanced emphysema is noted at the lung bases. There is dependent atelectasis. No airspace consolidation or pleural effusion is identified. Liver: The contrast-enhanced liver is normal in size, contour, and attenuation. There is no intrahepatic or ductal dilatation. Focus of subcapsular shunt vascularity are incidentally noted and related to arterial phase injection. Scattered subcentimeter hepatic hypodensities likely represent cysts but are too small for definitive characterization. Gallbladder: Calcified gallstones are noted. There is no CT evidence of acute cholecystitis. Spleen: Normal in size and attenuation noting heterogeneous arterial phase enhancement. Pancreas: Unremarkable. Adrenal glands: Unremarkable. Kidneys: The contrast enhanced kidneys demonstrate mild cortical atrophy and are without hydronephrosis. The kidneys enhance symmetrically. Abdominal aorta and iliac arteries: There is advanced atherosclerotic calcification of the abdominal aorta and iliac arteries. There is a fusiform aneurysm of the infrarenal abdominal aorta. This measures 4.1 cm in AP diameter and 4.0 cm in transverse diameter. The aneurysm sac extends approximately 9 cm in length. There is significant mural thrombus within the aneurysm sac. The minimum patent luminal diameter of the aorta measures 1.0 cm. The aneurysm sac originates approximately 1.2 cm below the renal arteries. Bilateral iliac artery stents are in place. 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 There is contrast present within the left iliac artery aneurysm sac external to the stent seen on image #234 consistent with endoleak. There is near complete thrombosis of the left external iliac artery seen on image #267. Great and 50% luminal narrowing at atherosclerotic irregularity is present throughout the remainder of the left external iliac artery. There is high-grade stenosis at the origin of the left common femoral artery, with complete thrombosis suspected within the proximal left superficial femoral artery. There is also likely complete thrombosis of the left profunda femoris artery. Postoperative changes questioned in the left groin. 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 Greater than 50% stenosis is seen at the origin of the right external iliac artery on image #240. Advanced atherosclerotic regularity and thready flow seen within the mid to distal right external iliac artery and the right common femoral artery. There is complete thrombosis of the right superficial femoral artery. The right profunda femoris artery appears patent. Major branches of the abdominal aorta: The celiac trunk and superior mesenteric arteries are patent. There is less than 50% stenosis within the proximal superior mesenteric artery. There is also less than 50% stenosis at the origin of the celiac trunk. The origin of the inferior mesenteric artery is thrombosed. The mid to distal inferior mesenteric arteries opacified, likely via retrograde flow. Hepatic arterial anatomy is conventional. 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 Advanced atherosclerotic plaque and luminal irregularity seen throughout the remainder of the splenic artery. Single bilateral renal arteries are widely patent. Bowel: No bowel obstruction is seen. The appendix is not visualized. Peritoneum: There is no intraperitoneal free air or abdominal ascites. Lymphadenopathy: None. Pelvic viscera: The bladder, uterus, and adnexa are normal as visualized. Skeletal structures: The skeletal structures are osteopenic. There is mild to moderate lumbosacral spondylosis. Sclerotic change is noted in the sacroiliac joints. Arthritic change is also seen in the hips. No lytic or blastic bony lesions are seen. IMPRESSION: 1. No significant change in the appearance of a 4.1 x 4.0 cm infrarenal abdominal aortic aneurysm as detailed above. 2. 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 There is contrast present within the aneurysm sac external to the stent consistent with endoleak. 3. 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 4. There is near-complete to complete thrombosis within the proximal left external iliac artery. 5. There is likely complete thrombosis of the left superficial femoral and profunda femoris arteries. 6. There is complete thrombosis of the right superficial femoral artery. 7. There is complete thrombosis at the origin of the inferior mesenteric artery. The majority of the vessel is opacified via retrograde flow. 8. Less than 50% stenosis is present in the celiac trunk and the superior mesenteric artery. 9. 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 10. Cardiomegaly and advanced emphysema. 11. No acute infectious or inflammatory findings identified in the abdomen or pelvis. 12. Cholelithiasis. 13. Additional findings as above. Electronically signed by: Conor White M.D. 06/10/2017 9:16 AM Dictated Date/Time: 06/10/2017 8:58 AM
== END | disposition home or self-care (01) ==
LOC: C.CTS 08:31
PROVIDERS: ATTEND Surgery
DX: I71.4 Abdominal aortic aneurysm, without rupture (principal); I72.3 Aneurysm of iliac artery; I73.9 Peripheral vascular disease, unspecified; I74.5 Embolism and thrombosis of iliac artery; I74.3 Embolism and thrombosis of arteries of the lower extremities; I51.7 Cardiomegaly; J43.9 Emphysema, unspecified; K80.20 Calculus of gallbladder without cholecystitis without obstruction

== ENCOUNTER → 2017-08-02 | Outpatient (CLI) | payer OTHER ==
[~2017-08-02] MED LIST changes: -OPTIRAY 320 IV PRN
--- NOTE | 2017-08-02 08:48 | DIAGNOSTIC IMAGING REPORT ---
(CHEST) THORAX WITHOUT CT DOSE: 197.94 mGy.cm HISTORY: Lung nodule R LUNG NODULE TECHNIQUE: Multiaxial CT images of the chest were performed without contrast. A dose lowering technique was utilized adhering to the principles of ALARA. COMPARISON: 02/15/2017 FINDINGS: Stable emphysematous change. Stable apical fibrotic change. Calcified granuloma superior segment right lower lobe unchanged. Stable 7 mm right upper lobe nodule best seen transaxial image 34. Unchanged atherosclerotic change thoracic aorta. Improved aeration both lung bases with no focal infiltrative process. IMPRESSION: 1. Stable 7 mm right upper lobe parenchymal nodule.. 2. Chronic additional changes as noted. 3. Lungs at this time are currently clear with Baseline emphysematous change present The above report was generated using voice recognition software. It may contain grammatical, syntax or spelling errors. Electronically signed by: Arturo Rodríguez M.D. 08/02/2017 8:47 AM Dictated Date/Time: 08/02/2017 8:42 AM
== END | disposition home or self-care (01) ==
LOC: C.CTS 08:23
PROVIDERS: ATTEND Family Medicine
DX: R91.1 Solitary pulmonary nodule (principal)

== ENCOUNTER → 2018-02-08 | Outpatient (CLI) | payer OTHER ==
--- NOTE | 2018-02-08 14:58 | MAMMOGRAPHY REPORT ---
BILATERAL DIGITAL SCREENING MAMMOGRAM TOMOSYNTHESIS WITH CAD: 02/08/2018 CLINICAL HISTORY: Routine screening. Patient has no complaints. TECHNIQUE: The study was acquired using full field digital technology and interpreted from soft copy. Breast tomosynthesis in addition to standard 2D mammography was performed. Current study was also ev aluated with a Computer Aided Detection (CAD) system. COMPARISON: Comparison is made to exams dated: 02/02/2017 mammogram, 01/28/2016 mammogram, 01/22/2015 [place] mogram, 01/29/2014 ultrasound, 01/29/2014 mammogram, and 01/18/2014 mammogram - [facility] er. BREAST COMPOSITION: The tissue of both breasts is extremely dense, which lowers the sensitivity of ma mmography. FINDINGS: There are scattered benign coarse, round and punctate calcifications in the breasts, stable compared to prior mammograms. Moderate vascular calcification. 18 mm focal asymmetry in the 12:00 to 1:00 posterior left breast is stable in size and appearance dating back to at least 2007, therefor e considered benign. No new suspicious mass, architectural distortion or cluster of microcalcificatio ns is seen. IMPRESSION: ACR BI-RADS CATEGORY 1: NEGATIVE There is no mammographic evidence of malignancy. A 1 year screening mammogram is recommended.( 019) The patient will receive written notification of the results. Some breast cancers are not detected with mammography. A negative mammographic report should not jacklyn y biopsy if a clinically suggestive mass is present. Rashida Franks M.D. ay/:02/08/2018 09:12:22 Education Director: RT Aviva(Reema)(M), [facility] letter sent: Normal 1/2 BI-RADS Code: ACR BI-RADS Category 1: Negative
== END | disposition home or self-care (01) ==
LOC: C.MAMM 07:20
PROVIDERS: ATTEND Family Medicine
DX: Z12.31 Encounter for screening mammogram for malignant neoplasm of breast (principal)

== ENCOUNTER → 2018-02-09 | Outpatient (CLI) | payer OTHER ==
--- NOTE | 2018-02-09 10:24 | DIAGNOSTIC IMAGING REPORT ---
BILATERAL CAROTID DOPPLER STUDY HISTORY: I65.29 Carotid stenosis [id number] COMPARISON: None. TECHNIQUE: Real-time, grayscale, and color Doppler sonography of the carotid arteries was performed. Imaging reviewed in the transverse and longitudinal planes. All measurements were calculated based on NASCET criteria. FINDINGS: Antegrade flow is seen in the bilateral vertebral arteries. The brachial pressures are hemodynamically similar. Mild right and moderate left scattered calcified plaque within the carotid arteries. The peak systolic velocity within the right ICA is 54 cm/s. The right systolic ratio is 0.8. The peak systolic velocity within the left ICA is 117 cm/s. The left systolic ratio is 1.6. IMPRESSION: No hemodynamically significant stenosis seen within the carotid arteries. Electronically signed by: Michael Murillo M.D. 02/09/2018 10:23 AM Dictated Date/Time: 02/09/2018 10:21 AM
== END | disposition home or self-care (01) ==
LOC: C.ULTR 09:31
PROVIDERS: ATTEND Surgery
DX: I65.29 Occlusion and stenosis of unspecified carotid artery (principal)

== ENCOUNTER 2019-07-11 10:45 | Inpatient (IN) ==
[~2019-07-11 10:45] MED LIST changes: -ASPI325T4 PO; -CALC-393 PO; -CILO100T PO; -DRGTP12 TD; -LDDP5 TD; -LPT40 PO; -METO50TA17 PO; -MULTTAB58 PO; -NRV/10 PO; -NTRGSL/4 UT; -OMEGCAP2 PO; -OXYC-57 PO; -POTA-65 PO; +SODIUM CHLORIDE 0.9% 1000ML 1,000 ML IV SCH
[2019-07-11 11:41] LABS: Creatinine Clr Calc Pharmacy 66.5 ml/min; Est GFR (African American) 104.2; Est GFR (Non-African American) 89.9
--- NOTE | 2019-07-11 13:35 | Pre Anesthesia Assessment ---
Date of Service July 11, 2019 Pre Sedation Assessment Vital Signs Temp Pulse Resp BP Pulse Ox 07/11/19 11:12 37.2 C 86 18 159/86 H 91 Cardiovascular RRR, no murmur, no edema Respiratory normal respiratory effort, lungs clear to auscultation Pre-Sedation Airway Assessment Smoking Status: Former smoker Hx Sleep Apnea: No Short, Thick Neck: No Thyromental Distance: > or= 3.5 Finger Breadths Oral Cavity: + Dentures Mallampati Class: II ASA: ASA3 NPO Status Date of Last Intake of Fluids: 07/10/19 Time of Last Intake of Fluids: 21:00 Date of Last Intake of Solid Food: 07/10/19 Time of Last Intake of Solid Foods: 17:00 Procedure Planning Contraindications for Sedation: none Current Medications Reviewed: Yes Notes The planned sedation has been discussed with the patient. Informed Consent was obtained. I have identified the patient, determined the appropriateness of sedation and have assessed the patient immediately prior to the procedure. All medicine(s) and interventions are by my order.
--- NOTE | 2019-07-11 13:35 | History & Physical Bridge Note ---
Date of Service July 11, 2019 History & Physical Bridge Note I have examined the patient, reviewed the History & Physical and in the interval since the performance of the History & Physical I have noted the following changes of clinical significance: no changes noted
[2019-07-11] MEDS ORDERED: HEPARIN 25000 UNIT/500 ML D5W IV ONE ×2 (13:48→17:36)
[2019-07-11] MEDS ORDERED: LIDOCAINE HCL 1% 20 ML VIAL ONE (13:48)
[2019-07-11] MEDS: CEFAZOLIN 1000MG 1,000 MG/7.5 ML SYR IV SCH ×2 (13:52→17:50)
[2019-07-11] MEDS ORDERED: HEPARIN SOD (PORCINE) 1000 UNIT/ML 10 ML VIAL ONE (14:18)
[2019-07-11] MEDS ORDERED: MIDAZOLAM HCL 1 MG/ML 2ML VIAL ONE (14:18)
[2019-07-11] MEDS ORDERED: fentaNYL citrate 100 MCG/2 ML VIAL ONE (14:18)
--- NOTE | 2019-07-11 15:00 | Post Operative Brief Note ---
Immediate Post Op Note v1 Date of Surgery July 11, 2019 Pre & Post Diagnosis Operation Date: 07/11/19 13:30 <No data on this case meets the specified criteria> I identified the patient and participated in the time-out.: Yes Procedure Operation Date: 07/11/19 13:30 Actual Procedures p Right Lower Extremity Arteriogram , Ultrasound Localization of Left Femoral Artery, Moderate Sedation from [id number](Right) - Julien Bolanos MD Surgeon Julien Bolanos MD Watch Inspector none Estimated Blood Loss 10 Findings Consistent with Post-Op Diagnosis Anesthesia Type RN Sedation Complications none Disposition Accompanied Patient To Recovery: No Disposition: Recovery Room
[2019-07-11] MEDS ORDERED: MoRPHine SULFATE 2 MG/ML CARP IV PRN (15:03)
[2019-07-11] MEDS ORDERED: VISIPAQUE IV PRN (15:06)
--- NOTE | 2019-07-11 15:12 | Post Anesthesia Assessment ---
Date of Service July 11, 2019 Post Sedation Assessment Vital Signs Temp Pulse Pulse Resp BP Pulse Ox 07/11/19 15:10 112 H 18 155/98 H 93 07/11/19 15:05 113 H 19 152/103 H 93 07/11/19 15:03 118 H 19 160/87 H 93 07/11/19 14:58 112 H 19 170/91 H 93 07/11/19 14:53 117 H 19 142/98 H 92 07/11/19 14:48 116 H 19 150/91 H 93 07/11/19 14:43 120 H 18 186/105 H 95 07/11/19 14:38 124 H 18 156/98 H 97 07/11/19 14:33 116 H 18 164/100 H 96 07/11/19 14:28 121 H 18 169/94 H 95 07/11/19 14:23 120 H 18 171/105 H 95 07/11/19 14:20 122 H 18 193/102 H 95 07/11/19 11:12 37.2 C 86 18 159/86 H 91 Recovery Score Activity: Moves 4 extremities Respiration: Deep Breath/Cough Circulation: +/-20% PreAnes Value Consciousness: Fully Awake Oxygen Saturation: > 92% On Room Air Post Anesthesia Score: 10 Discharge Sedation Level of Care: Fast Track Phase II Post Sedation Plan On clinical assessment, the patient appears to have tolerated the sedation without complications. Patient is recovering as anticipated. Patient will continue to be monitored by nursing and may be discharged when sedation discharge criteria are met per below protocol. Upon Completions of procedure up to 15 minutes continue every 5 minute vital signs and the P.A.R. score; then discharge to a Phase I or Fast Track to Phase I I per the following guidelines: * Discharge Patient to appropriate Phase II area if PAR is 8 or greater or return to pre- procedure baseline. The post - procedure orders will be as directed. * If PAR score is less than 8 or not return to pre-procedure baseline then patient will follow Phase I monitoring till PAR is reached for Phase II. The Phase I may be done in procedure room or may call to secure a Phase I area. * If naloxone or flumazenil are used for reversal, hold in Phase I for continued monitoring from when last reversal dose was given for a minimum of 60 minutes or longer pending the nurse and/or physician discretion of patient condition before discharge to Phase II. Please call the Sedation Physician to re-evaluate and complete post-note for discharge to Phase II area. Do NOT discharge from procedure sedation or Phase 1 until post- sedation evaluation note is complete by procedure /sedation MD Sedation Discharge Instructions to be given to the patient at discharge to home.
--- NOTE | 2019-07-11 15:18 | Operative Report ---
Post Operative Report Pre & Post Diagnosis Operation Date: 07/11/19 13:30 Pre-Op Diagnosis: Right Iliac, Right Superficial Femoral, and Right Common Femoral Artery Occlusion Post-Op Diagnosis: Right Iliac, Right Superficial Femoral, and Right Common Femoral Artery Occlu bryce Operation Date: 07/13/19 11:15 <No data on this case meets the specified criteria> I identified the patient and participated in the time-out.: Yes Procedure Operation Date: 07/11/19 13:30 Actual Procedures p Right Lower Extremity Arteriogram , Ultrasound Localization of Left Femoral Artery, Moderate Sedation from [id number](Right) - Julien Bolanos MD Operation Date: 07/13/19 11:15 <No data on this case meets the specified criteria> Surgeon Julien Bolanos MD Coke Handling Supervisor none Estimated Blood Loss 10 Findings Consistent with Post-Op Diagnosis Specimens None Anesthesia Type RN Sedation Complications none Disposition Accompanied Patient To Recovery: No Disposition: Recovery Room Indications This is a 78-year-old female who was seen in the office yesterday with severe ischemia of her right foot. 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 She has very little palpable pulses in both groins. An attempt arteriography was recommended and possible intervention. If this cannot be done then surgery would be needed. I have discussed the risks options and benefits of the procedure with the patient. The patient understands the risks options and benefits and agrees to the procedure. Description of Procedure The patient was taken to the angiogram suite and placed in supine position. Both groins were prepped and draped in a sterile manner. A timeout was performed the patient was identified. Ultrasound was then used to locate the left femoral artery which was barely palpable. This was punctured under direct ultrasound imaging once local was administered. The wire was passed up through the external iliac. She did have an old stent present in the left common iliac artery. This was occluded. Using a angled glide catheter and a quick cross along with a stiffened Glidewire this area could not be traversed. We left a 5 Urdu sheath in the left groin on the right side there was a pulse that was very very weak but palpable. Local anesthetic was administered. We did do a percutaneous puncture of the right common femoral artery. The wire could not be passed. We then injected through the needle which showed an occlusion of the common femoral artery. No retrograde contrast could be seen going up beyond the inguinal ligament. We then did a right lower extremity arteriogram and injecting through the needle. This showed a superficial femoral artery occl usion. A good widely patent profundofemoral artery. There is reconstitution of the popliteal at the level of the knee and only peroneal runoff down to the foot. 2 tibial origin was visualized with this was occluded just beyond the interosseous membrane. Posterior tibial arteries completely occluded. No intervention could be done at this point. Both puncture sites were closed using direct pressure. Dressings were applied.The patient left the operation room in satisfactory condition and tolerated the procedure well. All needle and sponge counts were correct at the end of the procedure. I attest to the content of the Intraoperative Record and any orders documented therein. Any exceptions are noted below.
[2019-07-11] MEDS: OXYCODONE/ACETAMINOPHEN 5mg/325mg TAB PO PRN ×2 (17:19→21:45)
[2019-07-11 17:55] LABS: Partial Thromboplastin Time 25.9 Seconds (21.0-31.0)
[2019-07-11] MEDS ORDERED: Heparin IV Standard *NO* Bolus IV SCH (18:00)
[2019-07-11] MEDS: HEPARIN SODIUM/DEXTROSE 25,000 UNITS/500 ML BAG IV SCH (18:03)
[2019-07-11] MEDS: SODIUM CHLORIDE 0.9% 1000ML 1,000 ML IV SCH ×2 (18:03→18:29)
[2019-07-11 18:18] LABS: Basophils # (auto) 0.04 K/uL (0-0.2); Basophils % (auto) 0.4 %; Eosinophils # (auto) 0.04 K/uL (0-0.5); Eosinophils % (auto) 0.4 %; Hematocrit (blood only) 43.4 % (37-47); Immature Granulocytes # (auto) 0.03 K/uL (0.00-0.02); Immature Granulocytes % (auto) 0.3 %; Lymphocytes # (auto) 1.19 K/uL (1.2-3.4); Lymphocytes % (auto) 11.6 %; Mean Corpuscular Hemoglobin 31.6 pg (25-34); Mean Corpuscular Volume 91.4 fL (80-100); Mean Platelet Volume 10.4 fL (7.4-10.4); Monocytes # (auto) 0.98 K/uL (0.11-0.59); Monocytes % (auto) 9.6 %; Neutrophils # (auto) 7.94 K/uL (1.4-6.5); Neutrophils % (auto) 77.7 %; Platelet Count 294 K/uL (130-400); RDW Coefficient of Variation 12.8 % (11.5-14.5); RDW Standard Deviation 42.8 fL (36.4-46.3); Red Blood Count 4.75 M/uL (4.2-5.4); White Blood Count 10.22 K/uL (4.8-10.8)
[2019-07-11 18:24] LABS: Prothrombin Time 10.3 Seconds (9.0-12.0)
[2019-07-11 18:26] LABS: Mean Corpuscular Hgb Conc 34.6 g/dL (32-36)
--- NOTE | 2019-07-11 22:20 | Ultrasound Report ---
ULTRASOUND RIGHT LOWER EXTREMITY VENOUS MAPPING CLINICAL HISTORY: Preoperative examination. COMPARISON STUDY: Right lower extremity venous ultrasound dated 06/13/2019. TECHNIQUE: Real-time, grayscale, and color Doppler sonography of the greater saphenous vein in the [facility] lower extremity is performed for the purpose of venous mapping. FINDINGS: The greater saphenous vein is patent and normally compressible. At the junction with the co mmon femoral vein this measures up to 3 mm. The greater saphenous vein measures 6 mm proximally, 4 mm in the midportion, and 3 mm in the distal portion of the thigh. The greater saphenous vein measures 3 mm at the level of popliteal fossa, and measures up to 3 mm in the calf. The small saphenous vein m easures up to 3 mm. IMPRESSION: Right lower extremity mapping of the greater saphenous vein as above. Electronically signed by: Conor White M.D. 07/11/2019 10:18 PM
--- NOTE | 2019-07-11 22:23 | XRay Report ---
TWO VIEW CHEST CLINICAL HISTORY: Preoperative examination. FINDINGS: AP and lateral chest radiographs are compared to study dated 09/12/2015 and correlated with chest CT dated 09/16/2018. The AP view is degraded by patient rotation. The heart is enlarged noting a therosclerotic calcification of the thoracic aorta. Advanced emphysema and chronic interstitial thick ening are similar to previous. There is bibasilar scarring/atelectasis. Trace pleural effusions are n oted on the lateral view. No airspace consolidation is seen typical for pneumonia. There is no pneumo thorax. The skeletal structures are osteopenic. A severe compression deformity is noted in the midtho racic spine. IMPRESSION: 1. Cardiomegaly and emphysema. 2. Trace pleural effusions. ACT 112: Negative or not required by law. Electronically signed by: Conor White M.D. 07/11/2019 10:21 PM
--- NOTE | 2019-07-11 22:26 | Ultrasound Report ---
ULTRASOUND RIGHT UPPER EXTREMITY ARTERIAL CLINICAL HISTORY: Preoperative examination for axillary femoral bypass graft. COMPARISON STUDY: No priors. TECHNIQUE: Real-time, grayscale, and color Doppler sonography of the right upper extremity arteries i s performed. FINDINGS: Normal Doppler arterial waveforms are present throughout the arteries of the right upper ex tremity. The right common carotid artery is patent, with velocities measuring up to 71 cm/s. The righ t subclavian artery is patent, with velocities measuring up to 73 cm/s. The right axillary artery is patent, with velocities measuring up to 57 cm/s, the right brachial artery is patent, with velocities measuring up to 95 cm/s, the radial artery is patent, with velocities measuring up to 84 cm/s, and t he ulnar artery is patent, with velocities measuring up to 43 cm/s. The right vertebral artery is pat ent with antegrade flow and velocities measuring up to 69 cm/s. IMPRESSION: Normal Doppler assessment of the right upper extremity arteries as above. Dictated: 07/11/2019 9:58 PM Transcribed: 07/11/2019 10:23 PM Donna [id number] [email or web address] Electronically signed by: Conor White M.D. 07/11/2019 10:25 PM
[2019-07-12 00:43] LABS: Partial Thromboplastin Ratio 1.4
[2019-07-12] MEDS ORDERED: HEPARIN IV BOLUS 4,000 UNITS in SYRINGE 0 ML IV ONE ×2 (01:00→08:59)
[2019-07-12 08:09] LABS: Basophils # (auto) 0.03 K/uL (0-0.2); Basophils % (auto) 0.3 %; Eosinophils # (auto) 0.07 K/uL (0-0.5); Eosinophils % (auto) 0.6 %; Hematocrit (blood only) 41.7 % (37-47); Hemoglobin 14.6 g/dL (12.0-16.0); Immature Granulocytes # (auto) 0.03 K/uL (0.00-0.02); Immature Granulocytes % (auto) 0.3 %; Lymphocytes # (auto) 1.24 K/uL (1.2-3.4); Lymphocytes % (auto) 10.5 %; Mean Corpuscular Volume 91.4 fL (80-100); Mean Platelet Volume 10.2 fL (7.4-10.4); Monocytes # (auto) 1.42 K/uL (0.11-0.59); Neutrophils # (auto) 9.04 K/uL (1.4-6.5); Neutrophils % (auto) 76.3 %; Platelet Count 279 K/uL (130-400); RDW Coefficient of Variation 12.9 % (11.5-14.5); RDW Standard Deviation 43.1 fL (36.4-46.3); Red Blood Count 4.56 M/uL (4.2-5.4); White Blood Count 11.83 K/uL (4.8-10.8)
[2019-07-12 08:35] LABS: Partial Thromboplastin Ratio 2.2
[2019-07-12 08:36] LABS: BUN Creatinine Ratio 14.3 (10-20); Calcium 9.2 mg/dl (8.5-10.1); Creatinine Clr Calc Pharmacy 77.6 ml/min; Est GFR (African American) 109.7; Est GFR (Non-African American) 94.6; Potassium 3.1 mmol/L (3.5-5.1)
[2019-07-12 09:05] LABS: Partial Thromboplastin Time 59.2 Seconds (21.0-31.0)
--- NOTE | 2019-07-12 09:26 | Cardiology Consultation ---
Date of Consultation July 12, 2019 Assessment & Plan (1) CAD (coronary artery disease): (2) PVD (peripheral vascular disease): (3) Carotid stenosis: (4) HTN (hypertension): (5) HLD (hyperlipidemia): (6) Preoperative cardiovascular examination: Mrs. Florian is a 78 year old female with a history of Hypertension, Hypercholesterolemia, Peripheral Vascular Disease (left AKA, 2015; bilateral iliac artery stenting, October 2016; AAA), and CAD s/p OM1 Multi-Link 3.0 x 23 mm Stent 08/20/1998 who was admitted with rest claudication of the right foot and leg and a non-healing right foot wound. She subsequently under LE Angiography which showed Right Iliac Artery, Right Common Femoral Artery, and Right Superficial Femoral Arterial Occlusions which require surgical intervention. Patient has been stable from a cardiac standpoint and has not had any angina pectoris or anginal equivalent symptoms, symptoms suggestive of heart failure, nor has she had any symptoms suggestive of dysrhythmia. I have written for her to resume Lopressor 50 mg b.i.d., Amlodipine 10 mg, and Atorvastatin 40 mg. Based on her functional status without limiting cardiopulmonary symptoms, normal LV systolic function on most recent echocardiogram, and based on the fact that she has limb threatening vascular disease -- Patient is an acceptable surgical risk to proceed as scheduled provided she take her usual doses of Lopressor and Amlodipine the morning of surgery with sips of water Thank you for asking us to see this patient in consultation. History of Present Illness Reason for Consultation: 1. Pre-operative Cardiology Evaluation. 2. CAD s/p OM Stent 2004. 3. PAD with Occluded Right Iliac Artery, Right VEST FRONT PRESSER, Right SFA. Requesting Physician: Julien Bolanos MD Attending Physician: Adriel Ayala MD History of Present Illness Mrs. Florian is a 78 year old female with a history of Hypertension, Hypercholesterolemia, Peripheral Vascular Disease (left AKA, 2015; bilateral iliac artery stenting, October 2016; AAA), and CAD s/p OM1 Multi-Link 3.0 x 23 mm Stent 08/20/1998 who was admitted with rest claudication of the right foot and leg and a non-healing right foot wound. She subsequently under LE Angiography which showed Right Iliac Artery, Right Common Femoral Artery, and Right Superficial Femoral Arterial Occlusions which require surgical intervention. Patient's cardiac history dates back to July 1998 when she presented with unstable angina pectoris. She underwent Cardiac Catheter[place] [facility] [place] which demonstrated the following: -- LMCA -- Angiographically normal. -- LAD -- 20% stenosis after the origin of D2. -- D1, D2 -- No significant disease. -- LCx -- No significant disease. -- OM1 -- Bifurcating vessel, posterior branch with long 90% proximal stenosis. -- RI -- Normal. -- RCA -- Dominant vessel, angiographically normal. -- R POPPY, R PDA -- Angiographically normal. In January 2017 she presented with chest pain. She was admitted and subsequently underwent a DSE which showed no evidence of myocardial ischemia at 97% MPHR and Normal LV Systolic Function. Patient has been doing very well from a cardiac standpoint. Since he refuses to wear a left lower extremity prosthesis, his but is able to ambulate using a wheelchair. She states that she is of at 4 o'clock every morning and works around the house. Patient has not experienced any angina pectoris or limiting cardiopulmonary symptoms with her daily activities. She specifically denies any exertional chest pain, heaviness, tightness, pressure, or discomfort. She denies any exertional neck, jaw, back, or arm pain. She denies any shortness of breath, unusual dyspnea exertion, or recent changes in exertional tolerance. She denies any orthopnea or PND. No palpitations, syncope, or near syncope. Patient is not receiving any of her usual home medications currently -- for unknown reasons. Allergies Allergy/AdvReac Type Severity Reaction Status Date / Time diphenhydramine AdvReac Unknown MAKES Verified 07/11/19 11:06 HEART RACE Home Medications Home Medications Medication Instructions Recorded Confirmed Type Calcium 600 + D(3) 1 tab PO QAM 03/24/18 07/11/19 History amlodipine 10 mg PO QAM 03/24/18 07/11/19 History atorvastatin 40 mg PO HS 03/24/18 07/11/19 History metoprolol tartrate 50 mg PO BID 03/24/18 07/11/19 History multivitamin 1 tab PO QAM 03/24/18 07/11/19 History omega 6-xyp-jyp-fish oil [Fish Oil] 1 tab PO QAM 03/24/18 07/11/19 History potassium chloride 20 meq PO BID 03/24/18 07/11/19 History cilostazol 100 mg tablet 100 mg PO BID #60 tab 02/23/19 07/11/19 Rx furosemide 40 mg tablet 40 mg PO BID #30 tab 02/23/19 07/11/19 Rx nitroglycerin 0.4 mg sublingual 0.4 mg SUBLINGUAL Q5M PRN tab 02/23/19 07/11/19 History tablet aspirin 81 mg tablet,delayed 81 mg PO DAILY 06/05/19 07/11/19 History release Patient History Medical History (Updated 07/12/19 @ 17:54 by Renato Koo MD) CAD (coronary artery disease) Hyperlipidemia Hypertension Osteoarthritis Peripheral vascular disease Surgical History H/O breast surgery X 2-BENIGN History of above knee amputation LEFT-08/2015-DOES NOT WEAR PROSTHESIS History of appendectomy History of below knee amputation LEFT History of bilateral tubal ligation History of cardiac cath 1 STENT-15 YRS AGO Previous back surgery BONE SPUR REMOVED Family History Son Family history of diabetes mellitus Social History Preferred Language: Sinhala Communication Ability: Effective Electricity Trading Analyst Required: No Beliefs That Will Affect Care: None marital status: Current Living Situation: Spouse Current Living Situation Comment: [facility]OUSE Other Information That Helps Us Care for You: No Feels Safe at Home: Yes Safety Concerns: Feels Safe At This Time Smoking Status: Former smoker Tobacco Type: cigarettes ; Do You Dip or Chew Tobacco: No ; Smoking End Date: 15 yrs ago ; Second Hand Exposure: No ; Tobacco Cessation Education Requested by Patient: No Hx Alcohol Use: Yes Alcohol type: beer Hx Substance Use: No Physical Exam Physical Exam: GENERAL: Patient in no acute distress. HEENT: Head is atraumatic, normocephalic. EOM's intact. Facies symmetric. No perioral cyanosis. NECK: No JVD. JVP is at the level of the clavicle sitting upright. Carotid upstrokes are + 2 bilaterally. No bruits are noted. CHEST/LUNGS: Clear to auscultation throughout all lung north. No wheezes, rales, or crackles. CVS: S1 and S2 are regular with occasional ectopy. No obvious murmurs, gallops, or rubs. PMI is nondisplaced. No lifts, heaves, or thrills. No abdominal aortic or renal bruits. ABDOMINAL EXAM: Bowel sounds are present. No masses, organomegaly, or tenderness. EXTREMITIES: No clubbing or cyanosis. No edema. Intact radial pulses bilaterally. Right leg and foot are cooler to touch, no palpable pulses in the right foot. Shallow ulceration on the dorsum of the right foot. Left leg is surgically absent. NEUROLOGIC EXAM: Patient is awake, alert, and oriented. Pleasant and c ooperative. Answers questions appropriately. Speech is clear. EKG 07/11/2019: -- Sinus tachycardia with frequent PVC's, non specific T wave abnormality in the anterolateral leads. Results & Data Vital Signs (Past 12 Hours) Vital Signs Temp Pulse Resp BP Pulse Ox 07/12/19 07:33 37.1 C 65 19 152/65 H 93 07/12/19 03:56 37 C 76 18 145/75 H 92 07/12/19 01:59 93 07/11/19 23:07 36.9 C 83 17 122/65 90 Laboratory Results Laboratory Results - last 24 hr 07/11/19 07/11/19 07/11/19 11:11 17:26 17:28 WBC 10.22 RBC 4.75 Hgb 15.0 Hct 43.4 MCV 91.4 MCH 31.6 MCHC 34.6 RDW Std Deviation 42.8 RDW Coeff of Jean 12.8 Plt Count 294 MPV 10.4 Immature Gran % (Auto) 0.3 Neut % (Auto) 77.7 Lymph % (Auto) 11.6 [place] % (Auto) 9.6 Eos % (Auto) 0.4 Baso % (Auto) 0.4 Immature Gran # (Auto) 0.03 H Neut # (Auto) 7.94 H Lymph # (Auto) 1.19 L [place] # (Auto) 0.98 H Eos # (Auto) 0.04 Baso # (Auto) 0.04 PT INR APTT 25.9 PTT Ratio 1.0 Sodium Potassium Chloride Carbon Dioxide Anion Gap BUN 9 Creatinine 0.56 L Est Cr Clr Drug Dosing 66.5 Est GFR ( Amer) 104.2 Est GFR (Non-Af Amer) 89.9 BUN/Creatinine Ratio Glucose Calcium 07/11/19 07/12/19 07/12/19 17:28 00:16 07:41 WBC 11.83 H RBC 4.56 Hgb 14.6 Hct 41.7 MCV 91.4 MCH 32.0 MCHC 35.0 RDW Std Deviation 43.1 RDW Coeff of Jean 12.9 Plt Count 279 MPV 10.2 Immature Gran % (Auto) 0.3 Neut % (Auto) 76.3 Lymph % (Auto) 10.5 [place] % (Auto) 12.0 Eos % (Auto) 0.6 Baso % (Auto) 0.3 Immature Gran # (Auto) 0.03 H Neut # (Auto) 9.04 H Lymph # (Auto) 1.24 [place] # (Auto) 1.42 H Eos # (Auto) 0.07 Baso # (Auto) 0.03 PT 10.3 INR 1.0 APTT 39.0 H PTT Ratio 1.4 Sodium Potassium Chloride Carbon Dioxide Anion Gap BUN Creatinine Est Cr Clr Drug Dosing Est GFR ( Amer) Est GFR (Non-Af Amer) BUN/Creatinine Ratio Glucose Calcium 07/12/19 07/12/19 07:41 07:41 WBC RBC Hgb Hct MCV MCH MCHC RDW Std Deviation RDW Coeff of Jean Plt Count MPV Immature Gran % (Auto) Neut % (Auto) Lymph % (Auto) [place] % (Auto) Eos % (Auto) Baso % (Auto) Immature Gran # (Auto) Neut # (Auto) Lymph # (Auto) [place] # (Auto) Eos # (Auto) Baso # (Auto) PT INR APTT 59.2 H* PTT Ratio 2.2 Sodium 132 L Potassium 3.1 L Chloride 101 Carbon Dioxide 23 Anion Gap 9.0 BUN 7 Creatinine 0.48 L Est Cr Clr Drug Dosing 77.6 Est GFR ( Amer) 109.7 Est GFR (Non-Af Amer) 94.6 BUN/Creatinine Ratio 14.3 Glucose 119 H Calcium 9.2 Medications Administered Active Medications Generic Name Dose Route Start Last Admin Trade Name Freq PRN Reason Stop Dose Admin Heparin Sodium/Dextrose 25,000 units in 500 mls @ 23 mls/hr 07/11/19 18:00 07/12/19 09:30 Heparin Sodium/Dextrose IV 08/10/19 17:59 1,150 units/hr .[id number] RAYMOND 23 mls/hr Titration Protocol 1,150 UNITS/HR Iodixanol 25 ml 07/11/19 15:06 Visipaque IV 07/15/19 15:05 UD PRN now Morphine Sulfate 1 - 4 mg 07/11/19 15:03 07/12/19 03:14 Morphine Sulfate IV 07/25/19 15:02 2 mg Q2M PRN Administration Severe Pain (7,8,9,10) Oxycodone/Acetaminophen 1 - 2 tab 07/11/19 15:03 07/11/19 21:45 Percocet 5mg/325mg PO 07/25/19 15:02 1 tab Q4H PRN Administration Moderate Pain PG Care Time/CCT Total # of Minutes Spent Total Time Spent with Patient: Total time spent is greater than 50% in coordination of care (as documented) at patient's floor/unit and/or counseling patient:
--- NOTE | 2019-07-12 11:10 | Electrocardiogram Report ---
Test Reason : Blood Pressure : / mmHG Vent. Rate : 101 BPM Atrial Rate : 101 BPM P-R Int : 136 ms QRS Dur : 076 ms QT Int : 342 ms P-R-T Axes : 049 017 -42 degrees QTc Int : 443 ms Sinus tachycardia with frequent , and consecutive Premature ventricular complexes Diffuse Nonspecific T wave abnormality Abnormal ECG When compared with ECG of 17-FEB-2017 06:26, Premature ventricular complexes are now Present Nonspecific T wave abnormality now evident in Anterolateral leads Confirmed by Ruy Rocha ([id number]) on 07/12/2019 11:10:28 AM Referred By: Julien Bolanos Confirmed By:Ruy Rocha
[2019-07-12] MEDS: OXYCODONE/ACETAMINOPHEN 5mg/325mg TAB PO PRN ×3 (11:56→22:04)
[2019-07-12] MEDS: ATORVASTATIN 40 MG TAB PO SCH (12:22)
[2019-07-12] MEDS: AMLODIPINE BESYLATE 5 MG TAB PO SCH (12:22)
[2019-07-12] MEDS: METOPROLOL TARTRATE 50 MG TAB PO SCH ×2 (12:22→20:47)
--- NOTE | 2019-07-12 13:31 | Surgery Progress Note ---
Date of Service July 12, 2019 Assessment & Plan (1) Pain of right lower extremity due to ischemia: Is recommended the patient to perform a right axillofemoral and femoral- popliteal bypass. I have discussed the risks options and benefits of the procedure with the patient. The patient understands the risks options and benefits and agrees to the procedure. This will be done tomorrow morning. Subjective The patient has some relief with the pain medication given. She is still able to feel her foot and move her foot without difficulty. Physical Exam Physical Exam: There is no changes in the exam of her lower extremity. The right foot is still pulseless with a dependent rubor and the beginning of a ischemic area on the dorsum of the foot. Constitutional: WD/WN, vitals as above Results & Data Vital Signs (Past 12 Hours) Vital Signs Temp Pulse Pulse Resp BP Pulse Ox 07/12/19 11:58 65 158/74 H 07/12/19 07:33 37.1 C 65 19 152/65 H 93 07/12/19 03:56 37 C 76 18 145/75 H 92 07/12/19 01:59 93
[2019-07-12] MEDS: HEPARIN SODIUM/DEXTROSE 25,000 UNITS/500 ML BAG IV SCH (15:53)
--- NOTE | 2019-07-12 17:50 | Anesthesiology Consultation ---
Date of Service July 12, 2019 Assessment & Plan (1) Encounter for pre-operative examination: Chart Review Chart Review: Acceptable Risk for Surgery History Surgery Operation Date: 07/11/19 13:30 Proposed Procedures p Right Arteriogram with run off, Possible Intervention - Julien Bolanos MD Operation Date: 07/13/19 11:15 Proposed Procedures p Axillary-Femoral, Femoral-Peroneal Insitu Bypass - Julien Bolanos MD Height/Weight Height: 5 ft 2 in Weight: 55.9 kg Allergies Allergy/AdvReac Type Severity Reaction Status Date / Time diphenhydramine AdvReac Unknown MAKES Verified 07/11/19 11:06 HEART RACE Medications Home Medications Medication Instructions Recorded Confirmed Last Taken Calcium 600 + D(3) 1 tab PO QAM 03/24/18 07/11/19 07/10/19 08:00 amlodipine 10 mg PO QAM 03/24/18 07/11/19 07/10/19 08:00 atorvastatin 40 mg PO HS 03/24/18 07/11/19 07/10/19 19:00 metoprolol tartrate 50 mg PO BID 03/24/18 07/11/19 07/10/19 18:00 multivitamin 1 tab PO QAM 03/24/18 07/11/19 07/10/19 08:00 omega 2-qbw-bkk-fish oil [Fish Oil] 1 tab PO QAM 03/24/18 07/11/19 07/10/19 08:00 potassium chloride 20 meq PO BID 03/24/18 07/11/19 07/10/19 18:00 cilostazol 100 mg tablet 100 mg PO BID #60 tab 02/23/19 07/11/19 07/10/19 18:00 furosemide 40 mg tablet 40 mg PO BID #30 tab 02/23/19 07/11/19 07/10/19 18:00 nitroglycerin 0.4 mg sublingual 0.4 mg SUBLINGUAL Q5M PRN tab 02/23/19 07/11/19 Unknown tablet aspirin 81 mg tablet,delayed 81 mg PO DAILY 06/05/19 07/11/19 07/10/19 08:00 release Active Medications Generic Name Dose Route Start Last Admin Trade Name Freq PRN Reason Stop Dose Admin Amlodipine Besylate 10 mg 07/12/19 11:00 07/12/19 12:22 Norvasc PO 02/14/20 10:59 10 mg QAM RAYMOND Administration Atorvastatin Calcium 40 mg 07/12/19 11:00 07/12/19 12:22 Lipitor PO 08/11/19 10:59 40 mg QAM RAYMOND Administration Heparin Sodium/Dextrose 25,000 units in 500 mls @ 23 mls/hr 07/11/19 18:00 07/12/19 15:53 Heparin Sodium/Dextrose IV 08/10/19 17:59 1,150 units/hr .[id number] RAYMOND 23 mls/hr Administration Protocol 1,150 UNITS/HR Metoprolol Tartrate 50 mg 07/12/19 11:00 07/12/19 12:22 Lopressor PO 08/11/19 10:59 50 mg BID RAYMOND Administration Morphine Sulfate 1 - 4 mg 07/11/19 15:03 07/12/19 03:14 Morphine Sulfate IV 07/25/19 15:02 2 mg Q2M PRN Administration Severe Pain (7,8,9,10) Oxycodone/Acetaminophen 1 - 2 tab 07/11/19 15:03 07/12/19 11:56 Percocet 5mg/325mg PO 07/25/19 15:02 2 tab Q4H PRN Administration Moderate Pain NPO Date Last Intake of Fluids: 07/11/19 Time Last Intake of Fluids: 23:59 Date Last Intake of Solids: 07/11/19 Time Last Intake of Solids: 23:59 Past Medical History Medical History (Updated 07/12/19 @ 17:54 by Renato Koo MD) CAD (coronary artery disease) Hyperlipidemia Hypertension Osteoarthritis Peripheral vascular disease Past Family History Family History Son Family history of diabetes mellitus Past Surgical History Surgical History H/O breast surgery X 2-BENIGN History of above knee amputation LEFT-08/2015-DOES NOT WEAR PROSTHESIS History of appendectomy History of below knee amputation LEFT History of bilateral tubal ligation History of cardiac cath 1 STENT-15 YRS AGO Previous back surgery BONE SPUR REMOVED Social History Smoking Status: Former smoker tobacco type: cigarettes Do You Dip or Chew Tobacco: No Smoking End Date: 15 yrs ago Hx Alcohol Use: Yes Alcohol type: beer alcohol intake frequency: 0-2 drinks per day Hx Substance Use: No substance use type: does not use Physical Exam Vital Signs Last Vital Signs Temp 36.9 C 07/12/19 15:57 Pulse 72 07/12/19 15:57 Resp 18 07/12/19 15:57 BP 129/52 L 07/12/19 15:57 Pulse Ox 93 07/12/19 15:57 Testing Laboratory Results 07/12/19 07:41 07/12/19 07:41 PT 10.3 Seconds (9.0-12.0) 07/11/19 17:28 INR 1.0 (0.9-1.1) 07/11/19 17:28 APTT 59.2 Seconds (21.0-31.0) H* 07/12/19 07:41 Blood Type A Positive 07/12/19 10:50 Antibody Screen NEGATIVE 07/12/19 10:50 Electrocardiogram Date: 07/11/19 Findings: + NSST changes and + ST @ (101) Chest X-Ray Date: 07/11/19 Findings: + NAD and + cardiomegaly emphysema Stress Test Date: 02/03/17 Type: DSE (No ischemia. normal LV function)
[2019-07-13 06:00] LABS: Hematocrit (blood only) 38.6 % (37-47); Hemoglobin 13.2 g/dL (12.0-16.0); Mean Corpuscular Hemoglobin 31.4 pg (25-34); Mean Corpuscular Hgb Conc 34.2 g/dL (32-36); Mean Corpuscular Volume 91.7 fL (80-100); Mean Platelet Volume 10.4 fL (7.4-10.4); Platelet Count 245 K/uL (130-400); RDW Coefficient of Variation 12.7 % (11.5-14.5); RDW Standard Deviation 42.8 fL (36.4-46.3); Red Blood Count 4.21 M/uL (4.2-5.4); White Blood Count 9.59 K/uL (4.8-10.8)
[2019-07-13] MEDS ORDERED: LACTATED RINGER'S 1,000 ML IV SCH (06:00)
[2019-07-13] MEDS ORDERED: CEFAZOLIN 1000MG 1,000 MG/7.5 ML SYR IV SCH (06:00)
[2019-07-13 07:06] LABS: Partial Thromboplastin Ratio 2.4
[2019-07-13 07:08] LABS: Partial Thromboplastin Time 65.6 Seconds (21.0-31.0)
[2019-07-13] MEDS: ATORVASTATIN 40 MG TAB PO SCH (07:28)
[2019-07-13] MEDS: OXYCODONE/ACETAMINOPHEN 5mg/325mg TAB PO PRN ×2 (07:28→19:41)
[2019-07-13] MEDS: AMLODIPINE BESYLATE 5 MG TAB PO SCH (07:28)
[2019-07-13] MEDS: METOPROLOL TARTRATE 50 MG TAB PO SCH ×2 (08:04→20:38)
--- NOTE | 2019-07-13 10:02 | Cardiology Progress Note ---
Date of Service July 13, 2019 Assessment & Plan (1) CAD (coronary artery disease): The patient had a cardiac catheterization performed in July 1998 because of unstable angina pectoris. She was found to have a 90% proximal OM1 stenosis for which a 3.0 x 23 mm stent was placed. She has done well with medical management since that time. (2) PVD (peripheral vascular disease): The patient will have a right axillo femoral and a femoral popliteal bypass performed later today. She has an acceptable cardiac risk as described in our consultation yesterday. She is status post a left AKA in 2015, and bilateral iliac artery stenting in October 2016. (3) HTN (hypertension): Adequate control on current medical regimen. (4) HLD (hyperlipidemia): Continue atorvastatin. Subjective The patient is resting comfortably in bed without complaints of chest pain or dyspnea. She is anxious to have her procedure performed today. Physical Exam Physical Exam: In general this is a well-developed well-nourished white female in no acute distress. HEENT exam is negative. Neck is supple with full carotid upstrokes. There are no carotid bruits. No JVD. There is no thyromegaly. Cardiovascular exam reveals a regular rhythm with a normal S1 and S2. No S3, S4, or murmurs are noted. Lungs are clear without rales, rhonchi, or wheezes. Abdomen is soft and nontender without bruits. Extremities reveal intact radial artery pulses bilaterally. Right lower extremity distal pulses are nonpalpable. A left AKA is noted. There is no peripheral edema. Results & Data Vital Signs (Past 12 Hours) Vital Signs Temp Pulse Resp BP BP Pulse Ox 07/13/19 07:46 37 C 84 18 154/55 H 91 07/12/19 23:27 36.9 C 55 L 16 125/65 92 PG Care Time/CCT Total # of Minutes Spent Total Time Spent with Patient: Total time spent is greater than 50% in coordination of care (as documented) at patient's floor/unit and/or counseling patient:
--- NOTE | 2019-07-13 10:12 | History & Physical Bridge Note ---
Date of Service July 13, 2019 History & Physical Bridge Note Patient for a right axillofemoral and fem pop bypass today. I have discussed the risks options and benefits of the procedure with the patient. The patient understands the risks options and benefits and agrees to the procedure. I have examined the patient, reviewed the History & Physical and in the interval since the performance of the History & Physical I have noted the following changes of clinical significance: no changes noted
[2019-07-13] MEDS ORDERED: PROPOFOL IV EMULSION 10 MG/ML 20 ML VIAL IV ONE (11:15)
[2019-07-13] MEDS ORDERED: LIDOCAINE HCL 2% 2 ML VIAL/AMP(20MG/ML) INFIL ONE (11:15)
[2019-07-13] MEDS ORDERED: HEPARIN (PORCINE) 1000 UNIT/ML 10 ML (CATH LAB USE ONLY) ONE (11:42)
[2019-07-13] MEDS ORDERED: THROMBIN FOR SOLN 20000 UNIT KIT ONE (11:42)
[2019-07-13] MEDS ORDERED: GELATIN SPONGE SZ 100 ONE (11:42)
[2019-07-13] MEDS ORDERED: CEFAZOLIN 250 MG/ML 1 GM VIAL ONE (12:04)
[2019-07-13] MEDS ORDERED: MIDAZOLAM HCL 1 MG/ML 2ML VIAL ONE (12:11)
[2019-07-13] MEDS ORDERED: fentaNYL citrate 100 MCG/2 ML VIAL ONE ×2 (12:11→14:35)
[2019-07-13] MEDS ORDERED: HEPARIN SOD (PORCINE) 1000 UNIT/ML 10 ML VIAL ONE (12:15)
[2019-07-13] MEDS ORDERED: ALBUMIN HUMAN 5% 12.5 GM/250 ML VIAL IV ONE (14:18)
[2019-07-13] MEDS ORDERED: CISATRACURIUM BESYLATE IV SOLN 2 MG/ML 10 ML VIAL IV ONE (14:47)
[2019-07-13] MEDS ORDERED: SUCCINYLCHOLINE CHLORIDE 20 MG/ML 10 ML VIAL ONE (14:47)
[2019-07-13] MEDS ORDERED: ePHEDrine sulfate 50 MG/ML SYR ONE ×2 (14:47→15:14)
[2019-07-13] MEDS ORDERED: DEXAMETHASONE SOD INJ 4 MG/ML VIAL ONE (14:48)
[2019-07-13] MEDS ORDERED: ONDANSETRON INJ 2 MG/ML 2 ML VIAL ONE (14:48)
[2019-07-13] MEDS ORDERED: GLYCOPYRROLATE 0.2 MG/ML VIAL ONE ×2 (14:49→15:26)
[2019-07-13] MEDS ORDERED: PHENYLEPHRINE HCL 10 MG/ML VIAL ONE ×2 (15:14→16:34)
[2019-07-13] MEDS ORDERED: NEOSTIGMINE METHYLSULFATE 5 MG/5 ML SYR ONE (15:26)
[2019-07-13] MEDS ORDERED: VISIPAQUE PRN (15:30)
--- NOTE | 2019-07-13 16:07 | Post Operative Brief Note ---
Immediate Post Op Note v1 Date of Surgery July 13, 2019 Pre & Post Diagnosis Operation Date: 07/11/19 13:30 Pre-Op Diagnosis: Right Iliac, Right Superficial Femoral, and Right Common Artery Occlusion Post-Op Diagnosis: Right Iliac, Right Superficial Femoral, and Right Common Artery Occlusion Operation Date: 07/13/19 11:15 Pre-Op Diagnosis: Right Foot Ischemia Post-Op Diagnosis: Right Foot Ischemia I identified the patient and participated in the time-out.: Yes Procedure Operation Date: 07/11/19 13:30 Actual Procedures p Right Lower Extremity Arteriogram , Ultrasound Localization of Left Femoral Artery, Moderate Sedation from 1423-15:10(Right) - Julien Bolanos MD Operation Date: 07/13/19 11:15 Actual Procedures p Right Axillary-Femoral, Femoral-Popliteal Prosthetic Bypass(Right) - Julien Bolanos MD Surgeon Julien Bolanos MD Detective Lieutenant Robby,PAC Estimated Blood Loss 150 Findings Consistent with Post-Op Diagnosis Drains Corbett Catheter Anesthesia Type General Complications none Disposition Accompanied Patient To Recovery: No Disposition: Recovery Room
[2019-07-13] MEDS: PHENYLEPHRINE HCL 20 MG in DEXTROSE 5% 500 ML IV SCH ×2 (16:56→18:16)
[2019-07-13] MEDS ORDERED: ePHEDrine sulfate 50 MG/ML AMP IV PRN (17:06)
[2019-07-13] MEDS ORDERED: PROMETHAZINE HCL 12.5 MG in SODIUM CHLORIDE 0.9% 50 ML IV PRN (17:06)
[2019-07-13] MEDS ORDERED: LABETALOL HCL IV 5 MG/ML 20ML IV PRN (17:06)
[2019-07-13] MEDS ORDERED: fentaNYL citrate 100 MCG/2 ML VIAL IV PRN (17:06)
[2019-07-13] MEDS ORDERED: ONDANSETRON INJ 2 MG/ML 2 ML VIAL IV PRN (17:06)
[2019-07-13] MEDS ORDERED: NALOXONE HCL 0.4 MG/1 ML VIAL/CARP IV PRN (17:06)
[2019-07-13] MEDS ORDERED: FLUMAZENIL 0.1 MG/1 ML 10 ML VIAL IV PRN (17:06)
[2019-07-13] MEDS ORDERED: ATROPINE SULFATE 0.1 MG/ML 10ML SYR IV PRN (17:06)
--- NOTE | 2019-07-13 17:18 | Anesthesiology Progress Note ---
Date of Service July 13, 2019 Anesthesia Post Procedure Vital Signs Vital Signs: Temp Pulse Pulse Resp BP BP Pulse Ox 07/13/19 17:10 92 H 14 109/58 L 95 07/13/19 17:00 80 14 104/57 L 95 07/13/19 16:50 81 14 98/60 L 93 07/13/19 16:40 96 H 14 107/65 94 07/13/19 16:30 94 H 14 104/59 L 96 07/13/19 16:22 36.1 C L 105 H 13 92/64 L 93 07/13/19 11:15 37 C 64 18 141/65 H 93 07/13/19 07:46 37 C 84 18 154/55 H 91 07/12/19 23:27 36.9 C 55 L 16 125/65 92 07/12/19 20:44 74 136/73 Pain Intensity Right Foot: Pain Intensity: 5 Transfer of Care Handoff Completed per policy Notes Mental Status: alert / awake / arousable Patient Amnestic to Procedure: Yes Nausea / Vomiting: adequately controlled Pain: adequately controlled Airway Patency, RR, SpO2: stable & adequate BP & HR: stable & adequate Hydration State: stable & adequate Anesthetic Complications: no major complications apparent
[2019-07-13] MEDS ORDERED: NITROGLYCERIN SL 0.4 MG/TAB TAB SL PRN (17:52)
[2019-07-13] MEDS: LACTATED RINGER'S 1,000 ML IV SCH ×2 (17:56→22:15)
[2019-07-13 18:47] LABS: BUN Creatinine Ratio 21.3 (10-20); Calcium 7.8 mg/dl (8.5-10.1); Creatinine Clr Calc Pharmacy 77.6 ml/min; Est GFR (African American) 109.7; Est GFR (Non-African American) 94.6; Potassium 3.2 mmol/L (3.5-5.1)
[2019-07-13 18:57] LABS: Hematocrit (blood only) 33.1 % (37-47); Hemoglobin 11.2 g/dL (12.0-16.0); Mean Corpuscular Hemoglobin 31.1 pg (25-34); Mean Corpuscular Hgb Conc 33.8 g/dL (32-36); Mean Corpuscular Volume 91.9 fL (80-100); Mean Platelet Volume 9.9 fL (7.4-10.4); Platelet Count 296 K/uL (130-400); RDW Coefficient of Variation 12.7 % (11.5-14.5); White Blood Count 23.03 K/uL (4.8-10.8)
[2019-07-13 18:58] LABS: Basophils # (auto) 0.03 K/uL (0-0.2); Basophils % (auto) 0.1 %; Echinocytes 1+; Eosinophils # (auto) 0.03 K/uL (0-0.5); Eosinophils % (auto) 0.1 %; Immature Granulocytes # (auto) 0.08 K/uL (0.00-0.02); Immature Granulocytes % (auto) 0.3 %; Monocytes # (auto) 0.82 K/uL (0.11-0.59); Monocytes % (auto) 3.6 %; Neutrophils # (auto) 21.37 K/uL (1.4-6.5); Neutrophils % (auto) 92.9 %
[2019-07-13] MEDS: FUROSEMIDE 40 MG TAB PO SCH (19:49)
--- NOTE | 2019-07-13 19:59 | Critical Care Consultation ---
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 -Right lower extremity pedal pulses dopplerable, foot is warm to touch and patient has sensation, although color is pallor -We will continue frequent Doppler monitoring per protocol -A-line for continuous BP monitoring, prevent hypertension maps greater than 65 -Currently hypotensive postop, I think that this is likely secondary to sedation during procedure, phenylephrine drip has been significantly weaned and will continue to wean off and monitor closely -No history of steroid use, adrenal insufficiency unlikely as patient is responsive to vasopressors, will check cortisol if unresolved soon -Holding antihypertensives until appropriate to give -Likely that newly developed leukocytosis is inflammatory following surgery as WBC was normal prior, no fevers, no suspicion of sepsis at this time -No known history of heart failure, patient is seen in cardiology clinic, will consider echo for rule out cardiogenic cause if unresolved soon CADstatus post stent x1 placement from 1999, patient successfully medically managed without issue since -Cleared for surgery per cardiology -Continue home meds HTNholding home meds as patient is on phenylephrine drip, will continue when appropriate Respiratory - Patient with no diagnosis history COPD but history smoker, quit 16 years ago -CT from 09/13 showed stable nodules without change from prior study, unchanged emphysematous, and dependent bibasilar atelectasis -Currently maintaining sats on 3 L nasal cannula, weaning as tolerated -We will continue to monitor on sat probe -Lungs clear to auscultation -Receiving home dose Lasix GI - Diet heart healthy RENAL/LYTES - Creatinine stable, monitor electrolytes and replete as necessary with routine BMPs - Strict I's and O's ENDO - No history diabetes or thyroid disease ICU hyperglycemic protocol HEME - H&H stable, EBL 150 Monitor routine CBCs ID - Postop cefazolin x2 dose Leukocytosis newly developed and normal prior to surgery is likely secondary to inflammation from procedure, will trend No fevers LINES/IV ACCESS - Peripheral IVs, A-line DVT PROPHYLAXIS - SCDs contraindicated as patient has left AKA and surgical sites to right lower extremity, will hold anticoagulations for tonight and restart per surgical team's discretion I have personally spent 38 minutes of critical care time in the direct management of this patient. This is a life/limb threatening event. This includes time spent evaluating patient, direct bedside care, chart review, placing orders, interpretation of diagnostic studies, discussion with consultants, patient, and family members, as well as other required patient management activities. This time is exclusive of all separately billable procedures, and teaching time and separate from and in addition to any other critical care service time. Thank you for allowing us to participate in the care of this patient. Please refer to my attending physician's documentation for any further recommendations. (2) CAD (coronary artery disease): (3) Pain of right lower extremity due to ischemia: (4) HLD (hyperlipidemia): (5) AAA (abdominal aortic aneurysm): (6) Carotid stenosis: Supervising Physician Co-Signing Physician Notes I have personally evaluated and examined this patient. I agree with assessment and plan of Jean Carlos ARZATE. Status post bypass. Prior to my evaluation on July 14, 2019 patient was transferred out of ICU. History of Present Illness Attending Physician: Julien Bolanos MD History of Present Illness Ms. Lorenzo is a 78-year-old female past medical history significant for CAD s/p stent x1, PAD, left AKA, HLD, HTN, carotid stenosis who presents to the ICU postoperatively following a right axillaryfemoral, femoralpopliteal prosthetic bypass for right iliac, right superficial femoral, and right common artery occlusion with right foot ischemia. EBL 150, and patient presents to the ICU on phenylephrine drip, weaning as tolerated. Right foot pulses are dopplerable and foot is pallor in color but warm to touch. Patient is alert and oriented and appears comfortable on exam. She reports pain directly at surgical site at 4/10, she denies pain to right foot and reports sensation with light touch. She currently denies recent illness, headache, dizziness, sore throat, shortness of breath, palpitations, chest pain, nausea or vomiting, diarrhea. Patient to remain in ICU for now following surgery and vasopressor management. Allergies Allergy/AdvReac Type Severity Reaction Status Date / Time diphenhydramine AdvReac Unknown MAKES Verified 07/13/19 11:22 HEART RACE Home Medications Home Medications Medication Instructions Recorded Confirmed Type Calcium 600 + D(3) 1 tab PO QAM 03/24/18 07/11/19 History amlodipine 10 mg PO QAM 03/24/18 07/11/19 History atorvastatin 40 mg PO HS 03/24/18 07/11/19 History metoprolol tartrate 50 mg PO BID 03/24/18 07/11/19 History multivitamin 1 tab PO QAM 03/24/18 07/11/19 History omega 6-rpb-kmh-fish oil [Fish Oil] 1 tab PO QAM 03/24/18 07/11/19 History potassium chloride 20 meq PO BID 03/24/18 07/11/19 History cilostazol 100 mg tablet 100 mg PO BID #60 tab 02/23/19 07/11/19 Rx furosemide 40 mg tablet 40 mg PO BID #30 tab 02/23/19 07/11/19 Rx nitroglycerin 0.4 mg sublingual 0.4 mg SUBLINGUAL Q5M PRN tab 02/23/19 07/11/19 History tablet aspirin 81 mg tablet,delayed 81 mg PO DAILY 06/05/19 07/11/19 History release Patient History Medical History (Updated 07/12/19 @ 17:54 by Renato Koo MD) CAD (coronary artery disease) Hyperlipidemia Hypertension Osteoarthritis Peripheral vascular disease Surgical History (Updated 07/14/19 @ 09:16 by Zhanna Bronson PA-C) H/O breast surgery X 2-BENIGN History of above knee amputation LEFT-08/2015-DOES NOT WEAR PROSTHESIS History of appendectomy History of below knee amputation LEFT History of bilateral tubal ligation History of cardiac cath 1 STENT-15 YRS AGO Previous back surgery BONE SPUR REMOVED Family History Son Family history of diabetes mellitus Social History Preferred Language: [place] Communication Ability: Effective Division Leader Required: No Beliefs That Will Affect Care: None marital status: Current Living Situation: Spouse Current Living Situation Comment: SPOUSE Other Information That Helps Us Care for You: No Feels Safe at Home: Yes Safety Concerns: Feels Safe At This Time Smoking Status: Former smoker Tobacco Type: cigarettes ; Do You Dip or Chew Tobacco: No ; Smoking End Date: 15 yrs ago ; Second Hand Exposure: No ; Tobacco Cessation Education Requested by Patient: No Hx Alcohol Use: Yes Alcohol type: beer Hx Substance Use: No Review of Systems Review of Systems: All systems reviewed & are unremarkable except as noted in HPI & below Physical Exam Constitutional: cooperative and comfortable Eyes: PERRL, conjunctivae normal, anicteric sclerae ENMT: external ear and nose normal, oropharynx normal Neck: trachea midline, no thyromegaly Respiratory: normal respiratory effort, lungs clear to auscultation Cardiovascular: RRR, no murmur, no edema Heart Sounds: normal S1 and normal S2 Vessels: no JVD Right lower extremity pulses dopplerable, right foot pallor, right foot warm to touch Gastrointestinal (Abdomen): normal bowel sounds, soft, nontender, no hepatosplenomegaly Skin: no rashes, warm and dry Neurologic: PERRL, EOMI, accommodation nl, no face palsy, no dysarthria Psychiatric: A+Ox3, euthymic affect Results & Data Vital Signs (Past 12 Hours) Vital Signs Temp Pulse Pulse Pulse Resp BP BP 07/13/19 19:52 36.6 C 91 H 18 07/13/19 18:32 99 H 22 82/50 L 07/13/19 18:30 95 H 14 07/13/19 18:20 92 H 14 07/13/19 18:17 89 13 87/65 L 07/13/19 18:10 94 H 15 07/13/19 18:03 95 H 21 99/60 L 07/13/19 18:00 98 H 12 07/13/19 17:47 36.4 C L 88 13 91/71 L 07/13/19 17:20 36.5 C 85 16 108/59 L 07/13/19 17:10 92 H 14 109/58 L 07/13/19 17:00 80 14 104/57 L 07/13/19 16:50 81 14 98/60 L 07/13/19 16:40 96 H 14 107/65 07/13/19 16:30 94 H 14 104/59 L 07/13/19 16:22 36.1 C L 105 H 13 92/64 L 07/13/19 11:15 37 C 64 18 141/65 H BP Pulse Ox 07/13/19 19:52 95/61 L 94 07/13/19 18:32 93 07/13/19 18:30 93 07/13/19 18:20 93 07/13/19 18:17 93 07/13/19 18:10 92 07/13/19 18:03 88 L 07/13/19 18:00 92 07/13/19 17:47 95 07/13/19 17:20 95 07/13/19 17:10 95 07/13/19 17:00 95 07/13/19 16:50 93 07/13/19 16:40 94 07/13/19 16:30 96 07/13/19 16:22 93 07/13/19 11:15 93 Coding Level of Care Code Critical Care 1st 30-74 mins Diagnoses PVD (peripheral vascular disease) I73.9 CAD (coronary artery disease) I25.10 Pain of right lower extremity due to ischemia I99.8 HLD (hyperlipidemia) E78.5 AAA (abdominal aortic aneurysm) I71.4 Carotid stenosis I65.29
[2019-07-13] MEDS ORDERED: POTASSIUM CHLORIDE 20 MEQ TABCR PO STA (20:14)
[2019-07-13] MEDS: CEFAZOLIN 1000MG 1,000 MG/7.5 ML SYR IV SCH (20:59)
[2019-07-13] MEDS: cilostazoL 100 MG TAB PO SCH (20:59)
[2019-07-13] MEDS ORDERED: ATORVASTATIN 40 MG TAB PO SCH (21:00)
[2019-07-13] MEDS ORDERED: METOPROLOL TARTRATE 50 MG TAB PO SCH (21:00)
[2019-07-14] MEDS ORDERED: ALBUMIN 5% 250 ML IV ONE (00:45)
[2019-07-14] MEDS ORDERED: ACETAMINOPHEN SOL 650 MG/20.3 ML UDC PO PRN (01:36)
[2019-07-14 04:53] LABS: Immature Granulocytes # (auto) 0.02 K/uL (0.00-0.02); Immature Granulocytes % (auto) 0.2 %; Lymphocytes # (auto) 0.42 K/uL (1.2-3.4); Lymphocytes % (auto) 3.7 %; Mean Corpuscular Hemoglobin 31.5 pg (25-34); Mean Corpuscular Hgb Conc 34.6 g/dL (32-36); Mean Corpuscular Volume 90.9 fL (80-100); Mean Platelet Volume 10.3 fL (7.4-10.4); Monocytes # (auto) 1.06 K/uL (0.11-0.59); Monocytes % (auto) 9.3 %; Neutrophils # (auto) 9.88 K/uL (1.4-6.5); Neutrophils % (auto) 86.8 %; Platelet Count 191 K/uL (130-400); RDW Coefficient of Variation 12.8 % (11.5-14.5); RDW Standard Deviation 42.7 fL (36.4-46.3); Red Blood Count 2.86 M/uL (4.2-5.4); White Blood Count 11.38 K/uL (4.8-10.8)
[2019-07-14] MEDS: LACTATED RINGER'S 1,000 ML IV SCH (05:15)
[2019-07-14 05:19] LABS: BUN Creatinine Ratio 21.3 (10-20); Calcium 7.5 mg/dl (8.5-10.1); Creatinine Clr Calc Pharmacy 84.7 ml/min; Est GFR (African American) 112.8; Est GFR (Non-African American) 97.4
[2019-07-14] MEDS: CEFAZOLIN 1000MG 1,000 MG/7.5 ML SYR IV SCH (06:20)
--- NOTE | 2019-07-14 07:40 | History & Physical Bridge Note ---
Date of Service July 14, 2019 History & Physical Bridge Note I have examined the patient, reviewed the History & Physical and in the interval since the performance of the History & Physical I have noted the following changes of clinical significance: no changes noted
--- NOTE | 2019-07-14 07:40 | Pre Anesthesia Assessment ---
Date of Service July 14, 2019 Pre Sedation Assessment Vital Signs Temp Pulse Pulse Pulse Resp BP BP 07/14/19 06:20 84 19 07/14/19 06:18 73 6 L 99/48 L 07/14/19 06:10 101 H 17 07/14/19 06:03 81 12 99/54 L 07/14/19 06:00 72 12 07/14/19 05:50 99 H 13 07/14/19 05:48 80 13 100/50 L 07/14/19 05:40 93 H 14 07/14/19 05:33 79 13 92/50 L 07/14/19 05:30 80 15 07/14/19 05:20 74 14 07/14/19 05:18 80 15 91/57 L 07/14/19 05:10 77 16 07/14/19 05:03 81 18 91/49 L 07/14/19 05:00 79 15 07/14/19 04:50 106 H 25 H 07/14/19 04:48 82 14 97/52 L 07/14/19 04:40 75 16 07/14/19 04:33 69 14 89/47 L 07/14/19 04:30 78 14 07/14/19 04:20 96 H 16 07/14/19 04:18 98 H 22 82/49 L 07/14/19 04:10 96 H 20 07/14/19 04:03 72 15 95/52 L 07/14/19 04:00 90 17 07/14/19 03:50 80 9 L 07/14/19 03:48 92 H 19 93/55 L 07/14/19 03:40 81 18 07/14/19 03:33 74 11 L 94/51 L 07/14/19 03:30 89 12 07/14/19 03:20 78 13 07/14/19 03:18 103 H 19 82/73 L 07/14/19 03:10 91 H 16 07/14/19 03:03 79 16 100/61 07/14/19 03:00 80 13 07/14/19 02:50 88 19 07/14/19 02:48 75 19 84/61 L 07/14/19 02:40 95 H 15 07/14/19 02:33 83 14 101/52 L 07/14/19 02:30 83 15 07/14/19 02:20 88 13 07/14/19 02:18 85 15 92/58 L 07/14/19 02:10 87 15 07/14/19 02:03 80 14 104/53 L 07/14/19 02:00 83 13 07/14/19 01:50 82 12 07/14/19 01:48 85 6 L 83/55 L 07/14/19 01:40 79 16 07/14/19 01:33 90 13 94/60 L 07/14/19 01:30 78 12 07/14/19 01:20 77 10 L 07/14/19 01:18 84 8 L 93/55 L 07/14/19 01:10 86 13 07/14/19 01:03 79 10 L 91/56 L 07/14/19 01:00 85 16 07/14/19 00:50 81 14 07/14/19 00:48 93 H 15 89/54 L 07/14/19 00:40 94 H 16 07/14/19 00:33 89 14 93/53 L 07/14/19 00:30 91 H 17 07/14/19 00:20 89 19 07/14/19 00:18 84 10 L 96/55 L 07/14/19 00:10 81 13 07/14/19 00:03 82 18 85/57 L 07/14/19 00:00 36.8 C 85 79 20 07/13/19 23:59 07/13/19 23:50 91 H 14 07/13/19 23:48 90 14 07/13/19 23:43 79 13 94/56 L 07/13/19 23:40 91 H 14 07/13/19 23:33 81 17 07/13/19 23:30 77 12 07/13/19 23:20 92 H 16 07/13/19 23:17 85 13 07/13/19 23:10 90 14 07/13/19 23:05 79 14 82/50 L 07/13/19 23:03 90 15 79/50 L 07/13/19 23:00 97 H 20 07/13/19 20:52 86 18 07/13/19 20:00 104 H 18 07/13/19 19:52 36.6 C 91 H 18 07/13/19 18:32 99 H 22 82/50 L 01/16/20 18:30 95 H 14 07/13/19 18:20 92 H 14 07/13/19 18:17 89 13 87/65 L 07/13/19 18:10 94 H 15 07/13/19 18:03 95 H 21 99/60 L 07/13/19 18:00 98 H 12 07/13/19 17:47 36.4 C L 88 13 91/71 L 07/13/19 17:20 36.5 C 85 16 108/59 L 07/13/19 17:10 92 H 14 109/58 L 07/13/19 17:00 80 14 104/57 L 07/13/19 16:50 81 14 98/60 L 07/13/19 16:40 96 H 14 107/65 07/13/19 16:30 94 H 14 104/59 L 07/13/19 16:22 36.1 C L 105 H 13 92/64 L 07/13/19 11:15 37 C 64 18 141/65 H 07/13/19 07:46 37 C 84 18 BP Pulse Ox Pulse Ox 07/14/19 06:20 96 07/14/19 06:18 94 07/14/19 06:10 94 07/14/19 06:03 95 07/14/19 06:00 92 07/14/19 05:50 95 07/14/19 05:48 96 07/14/19 05:40 92 07/14/19 05:33 96 07/14/19 05:30 97 07/14/19 05:20 95 07/14/19 05:18 97 07/14/19 05:10 97 07/14/19 05:03 96 07/14/19 05:00 95 07/14/19 04:50 94 07/14/19 04:48 97 07/14/19 04:40 92 07/14/19 04:33 96 07/14/19 04:30 95 07/14/19 04:20 93 07/14/19 04:18 93 07/14/19 04:10 94 07/14/19 04:03 95 07/14/19 04:00 96 07/14/19 03:50 91 07/14/19 03:48 94 07/14/19 03:40 95 07/14/19 03:33 95 07/14/19 03:30 95 07/14/19 03:20 95 07/14/19 03:18 89 L 07/14/19 03:10 94 07/14/19 03:03 95 07/14/19 03:00 95 07/14/19 02:50 92 07/14/19 02:48 96 07/14/19 02:40 85 L 07/14/19 02:33 97 07/14/19 02:30 93 07/14/19 02:20 95 07/14/19 02:18 93 07/14/19 02:10 92 07/14/19 02:03 92 07/14/19 02:00 97 07/14/19 01:50 87 L 07/14/19 01:48 96 07/14/19 01:40 88 L 07/14/19 01:33 94 07/14/19 01:30 96 07/14/19 01:20 93 07/14/19 01:18 94 07/14/19 01:10 93 07/14/19 01:03 94 07/14/19 01:00 92 07/14/19 00:50 93 07/14/19 00:48 92 07/14/19 00:40 89 L 07/14/19 00:33 92 07/14/19 00:30 92 07/14/19 00:20 92 07/14/19 00:18 96 07/14/19 00:10 94 07/14/19 00:03 97 07/14/19 00:00 107/44 L 93 07/13/19 23:59 95 07/13/19 23:50 93 07/13/19 23:48 87 L 07/13/19 23:43 93 07/13/19 23:40 93 07/13/19 23:33 94 07/13/19 23:30 94 07/13/19 23:20 95 07/13/19 23:17 95 07/13/19 23:10 91 07/13/19 23:05 93 07/13/19 23:03 94 07/13/19 23:00 88 L 07/13/19 20:52 102/66 92 07/13/19 20:00 101/65 95 07/13/19 19:52 95/61 L 94 07/13/19 18:32 93 07/13/19 18:30 93 07/13/19 18:20 93 07/13/19 18:17 93 07/13/19 18:10 92 07/13/19 18:03 88 L 07/13/19 18:00 92 07/13/19 17:47 95 07/13/19 17:20 95 07/13/19 17:10 95 07/13/19 17:00 95 07/13/19 16:50 93 07/13/19 16:40 94 07/13/19 16:30 96 07/13/19 16:22 93 07/13/19 11:15 93 07/13/19 07:46 154/55 H 91 Cardiovascular RRR, no murmur, no edema Respiratory normal respiratory effort, lungs clear to auscultation Pre-Sedation Airway Assessment Smoking Status: Former smoker Hx Sleep Apnea: No Short, Thick Neck: No Thyromental Distance: < 3.5 Finger Breadths Oral Cavity: + Dentures Mallampati Class: II ASA: ASA3 NPO Status Date of Last Intake of Fluids: 07/10/19 Time of Last Intake of Fluids: 21:00 Date of Last Intake of Solid Food: 07/10/19 Time of Last Intake of Solid Foods: 17:00 Procedure Planning Contraindications for Sedation: none Current Medications Reviewed: Yes Notes The planned sedation has been discussed with the patient. Informed Consent was obtained. I have identified the patient, determined the appropriateness of sedation and have assessed the patient immediately prior to the procedure. All medicine(s) and interventions are by my order.
[2019-07-14] MEDS: METOPROLOL TARTRATE 50 MG TAB PO SCH ×2 (08:04→19:59)
[2019-07-14] MEDS: AMLODIPINE BESYLATE 5 MG TAB PO SCH (08:04)
[2019-07-14] MEDS: ASPIRIN 81 MG ECTAB PO SCH (08:04)
[2019-07-14] MEDS: ATORVASTATIN 40 MG TAB PO SCH (08:04)
[2019-07-14] MEDS: cilostazoL 100 MG TAB PO SCH ×2 (08:04→20:08)
[2019-07-14] MEDS: FUROSEMIDE 40 MG TAB PO SCH ×2 (08:04→16:48)
--- NOTE | 2019-07-14 08:06 | Anesthesiology Progress Note ---
Date of Service July 14, 2019 Anesthesia Post Procedure Vital Signs Vital Signs: Temp Pulse Pulse Pulse Resp BP BP 07/14/19 06:20 84 19 07/14/19 06:18 73 6 L 99/48 L 07/14/19 06:10 101 H 17 07/14/19 06:03 81 12 99/54 L 07/14/19 06:00 72 12 07/14/19 05:50 99 H 13 07/14/19 05:48 80 13 100/50 L 07/14/19 05:40 93 H 14 07/14/19 05:33 79 13 92/50 L 07/14/19 05:30 80 15 07/14/19 05:20 74 14 07/14/19 05:18 80 15 91/57 L 07/14/19 05:10 77 16 07/14/19 05:03 81 18 91/49 L 07/14/19 05:00 79 15 07/14/19 04:50 106 H 25 H 07/14/19 04:48 82 14 97/52 L 07/14/19 04:40 75 16 07/14/19 04:33 69 14 89/47 L 07/14/19 04:30 78 14 07/14/19 04:20 96 H 16 07/14/19 04:18 98 H 22 82/49 L 07/14/19 04:10 96 H 20 07/14/19 04:03 72 15 95/52 L 07/14/19 04:00 90 17 07/14/19 03:50 80 9 L 07/14/19 03:48 92 H 19 93/55 L 07/14/19 03:40 81 18 07/14/19 03:33 74 11 L 94/51 L 07/14/19 03:30 89 12 07/14/19 03:20 78 13 07/14/19 03:18 103 H 19 82/73 L 07/14/19 03:10 91 H 16 07/14/19 03:03 79 16 100/61 07/14/19 03:00 80 13 07/14/19 02:50 88 19 07/14/19 02:48 75 19 84/61 L 07/14/19 02:40 95 H 15 07/14/19 02:33 83 14 101/52 L 07/14/19 02:30 83 15 07/14/19 02:20 88 13 07/14/19 02:18 85 15 92/58 L 07/14/19 02:10 87 15 07/14/19 02:03 80 14 104/53 L 07/14/19 02:00 83 13 07/14/19 01:50 82 12 07/14/19 01:48 85 6 L 83/55 L 07/14/19 01:40 79 16 07/14/19 01:33 90 13 94/60 L 07/14/19 01:30 78 12 07/14/19 01:20 77 10 L 07/14/19 01:18 84 8 L 93/55 L 07/14/19 01:10 86 13 07/14/19 01:03 79 10 L 91/56 L 07/14/19 01:00 85 16 07/14/19 00:50 81 14 07/14/19 00:48 93 H 15 89/54 L 07/14/19 00:40 94 H 16 07/14/19 00:33 89 14 93/53 L 07/14/19 00:30 91 H 17 07/14/19 00:20 89 19 07/14/19 00:18 84 10 L 96/55 L 07/14/19 00:10 81 13 07/14/19 00:03 82 18 85/57 L 07/14/19 00:00 36.8 C 85 79 20 07/13/19 23:59 07/13/19 23:50 91 H 14 07/13/19 23:48 90 14 07/13/19 23:43 79 13 94/56 L 07/13/19 23:40 91 H 14 07/13/19 23:33 81 17 07/13/19 23:30 77 12 07/13/19 23:20 92 H 16 07/13/19 23:17 85 13 07/13/19 23:10 90 14 07/13/19 23:05 79 14 82/50 L 07/13/19 23:03 90 15 79/50 L 07/13/19 23:00 97 H 20 07/13/19 20:52 86 18 07/13/19 20:00 104 H 18 07/13/19 19:52 36.6 C 91 H 18 07/13/19 18:32 99 H 22 82/50 L 07/13/19 18:30 95 H 14 07/13/19 18:20 92 H 14 07/13/19 18:17 89 13 87/65 L 07/13/19 18:10 94 H 15 07/13/19 18:03 95 H 21 99/60 L 07/13/19 18:00 98 H 12 07/13/19 17:47 36.4 C L 88 13 91/71 L 07/13/19 17:20 36.5 C 85 16 108/59 L 07/13/19 17:10 92 H 14 109/58 L 07/13/19 17:00 80 14 104/57 L 07/13/19 16:50 81 14 98/60 L 07/13/19 16:40 96 H 14 107/65 07/13/19 16:30 94 H 14 104/59 L 07/13/19 16:22 36.1 C L 105 H 13 92/64 L 07/13/19 11:15 37 C 64 18 141/65 H BP Pulse Ox Pulse Ox 07/14/19 06:20 96 07/14/19 06:18 94 07/14/19 06:10 94 07/14/19 06:03 95 07/14/19 06:00 92 07/14/19 05:50 95 07/14/19 05:48 96 07/14/19 05:40 92 07/14/19 05:33 96 07/14/19 05:30 97 07/14/19 05:20 95 07/14/19 05:18 97 07/14/19 05:10 97 07/14/19 05:03 96 07/14/19 05:00 95 07/14/19 04:50 94 07/14/19 04:48 97 07/14/19 04:40 92 07/14/19 04:33 96 07/14/19 04:30 95 07/14/19 04:20 93 07/14/19 04:18 93 07/14/19 04:10 94 07/14/19 04:03 95 07/14/19 04:00 96 07/14/19 03:50 91 07/14/19 03:48 94 07/14/19 03:40 95 07/14/19 03:33 95 07/14/19 03:30 95 07/14/19 03:20 95 07/14/19 03:18 89 L 07/14/19 03:10 94 07/14/19 03:03 95 07/14/19 03:00 95 07/14/19 02:50 92 07/14/19 02:48 96 07/14/19 02:40 85 L 07/14/19 02:33 97 07/14/19 02:30 93 07/14/19 02:20 95 07/14/19 02:18 93 07/14/19 02:10 92 07/14/19 02:03 92 07/14/19 02:00 97 07/14/19 01:50 87 L 07/14/19 01:48 96 07/14/19 01:40 88 L 07/14/19 01:33 94 07/14/19 01:30 96 07/14/19 01:20 93 07/14/19 01:18 94 07/14/19 01:10 93 07/14/19 01:03 94 07/14/19 01:00 92 07/14/19 00:50 93 07/14/19 00:48 92 07/14/19 00:40 89 L 07/14/19 00:33 92 07/14/19 00:30 92 07/14/19 00:20 92 07/14/19 00:18 96 07/14/19 00:10 94 07/14/19 00:03 97 07/14/19 00:00 107/44 L 93 07/13/19 23:59 95 07/13/19 23:50 93 07/13/19 23:48 87 L 07/13/19 23:43 93 07/13/19 23:40 93 07/13/19 23:33 94 07/13/19 23:30 94 07/13/19 23:20 95 07/13/19 23:17 95 07/13/19 23:10 91 07/13/19 23:05 93 07/13/19 23:03 94 07/13/19 23:00 88 L 07/13/19 20:52 102/66 92 07/13/19 20:00 101/65 95 07/13/19 19:52 95/61 L 94 07/13/19 18:32 93 07/13/19 18:30 93 07/13/19 18:20 93 07/13/19 18:17 93 07/13/19 18:10 92 07/13/19 18:03 88 L 07/13/19 18:00 92 07/13/19 17:47 95 07/13/19 17:20 95 07/13/19 17:10 95 07/13/19 17:00 95 07/13/19 16:50 93 07/13/19 16:40 94 07/13/19 16:30 96 07/13/19 16:22 93 07/13/19 11:15 93 Pain Intensity Right Foot: Pain Intensity: 5 Notes Mental Status: alert / awake / arousable and participated in evaluation Patient Amnestic to Procedure: Yes Nausea / Vomiting: adequately controlled Pain: adequately controlled Airway Patency, RR, SpO2: stable & adequate BP & HR: stable & adequate Hydration State: stable & adequate Anesthetic Complications: no major complications apparent and Pt Satisfied with anesthetic care
[2019-07-14] MEDS ORDERED: AMLODIPINE BESYLATE 5 MG TAB PO SCH (09:00)
--- NOTE | 2019-07-14 09:18 | Surgery Progress Note ---
Date of Service July 14, 2019 Assessment & Plan (1) S/P femoral-popliteal bypass surgery: Pt doing well post op after R ax-fem and fem pop BPG procedure yesterday. Hgb 9 today, but pt asymptomatic. Per Luis Miguel, transfer to med-surg tele. Subjective 78 yo f POD #1 after R ax-fem and fem-pop prosthetic BPG, seen i nf/u today. Pt states no longer having any pain in her R foot. Has minimal incisional pain. Admits fatigue. Denies HOFFMAN, chest pain, SOB, abd pain, N/V, other complaints. Review of Systems Review of Systems: All systems reviewed & are unremarkable except as noted in HPI & below Physical Exam Constitutional: WD/WN, vitals as above Respiratory: normal respiratory effort, lungs clear to auscultation Cardiovascular: Rate/Rhythm: regular rate and regular rhythm Vessels: posterior tibial pulses present (with doppler) and dorsalis pedis pulses present (with doppler); + abnormal peripheral pulses Extremities: normal capillary refill and + pedal edema (mild) Gastrointestinal (Abdomen): normal bowel sounds, soft, nontender, no hepatosplenomegaly Musculoskeletal: Extremities: strength 5/5 throughout Skin: + incision (soft edema, no shadowing on dressings) Neurologic: moves all extremities; no focal motor deficits Results & Data Vital Signs (Past 12 Hours) Vital Signs Temp Pulse Pulse Resp BP BP Pulse Ox 07/14/19 06:20 84 19 96 07/14/19 06:18 73 6 L 99/48 L 94 07/14/19 06:10 101 H 17 94 07/14/19 06:03 81 12 99/54 L 95 07/14/19 06:00 72 12 92 07/14/19 05:50 99 H 13 95 07/14/19 05:48 80 13 100/50 L 96 07/14/19 05:40 93 H 14 92 07/14/19 05:33 79 13 92/50 L 96 07/14/19 05:30 80 15 97 07/14/19 05:20 74 14 95 07/14/19 05:18 80 15 91/57 L 97 07/14/19 05:10 77 16 97 07/14/19 05:03 81 18 91/49 L 96 07/14/19 05:00 79 15 95 07/14/19 04:50 106 H 25 H 94 07/14/19 04:48 82 14 97/52 L 97 07/14/19 04:40 75 16 92 07/14/19 04:33 69 14 89/47 L 96 07/14/19 04:30 78 14 95 07/14/19 04:20 96 H 16 93 07/14/19 04:18 98 H 22 82/49 L 93 07/14/19 04:10 96 H 20 94 07/14/19 04:03 72 15 95/52 L 95 07/14/19 04:00 90 17 96 07/14/19 03:50 80 9 L 91 07/14/19 03:48 92 H 19 93/55 L 94 07/14/19 03:40 81 18 95 07/14/19 03:33 74 11 L 94/51 L 95 07/14/19 03:30 89 12 95 07/14/19 03:20 78 13 95 07/14/19 03:18 103 H 19 82/73 L 89 L 07/14/19 03:10 91 H 16 94 07/14/19 03:03 79 16 100/61 95 07/14/19 03:00 80 13 95 07/14/19 02:50 88 19 92 07/14/19 02:48 75 19 84/61 L 96 07/14/19 02:40 95 H 15 85 L 07/14/19 02:33 83 14 101/52 L 97 07/14/19 02:30 83 15 93 07/14/19 02:20 88 13 95 07/14/19 02:18 85 15 92/58 L 93 07/14/19 02:10 87 15 92 07/14/19 02:03 80 14 104/53 L 92 07/14/19 02:00 83 13 97 07/14/19 01:50 82 12 87 L 07/14/19 01:48 85 6 L 83/55 L 96 07/14/19 01:40 79 16 88 L 07/14/19 01:33 90 13 94/60 L 94 07/14/19 01:30 78 12 96 07/14/19 01:20 77 10 L 93 07/14/19 01:18 84 8 L 93/55 L 94 07/14/19 01:10 86 13 93 07/14/19 01:03 79 10 L 91/56 L 94 07/14/19 01:00 85 16 92 07/14/19 00:50 81 14 93 07/14/19 00:48 93 H 15 89/54 L 92 07/14/19 00:40 94 H 16 89 L 07/14/19 00:33 89 14 93/53 L 92 07/14/19 00:30 91 H 17 92 07/14/19 00:20 89 19 92 07/14/19 00:18 84 10 L 96/55 L 96 07/14/19 00:10 81 13 94 07/14/19 00:03 82 18 85/57 L 97 07/14/19 00:00 36.8 C 85 79 20 107/44 L 93 07/13/19 23:59 07/13/19 23:50 91 H 14 93 07/13/19 23:48 90 14 87 L 07/13/19 23:43 79 13 94/56 L 93 07/13/19 23:40 91 H 14 93 07/13/19 23:33 81 17 94 07/13/19 23:30 77 12 94 07/13/19 23:20 92 H 16 95 07/13/19 23:17 85 13 95 07/13/19 23:10 90 14 91 07/13/19 23:05 79 14 82/50 L 93 07/13/19 23:03 90 15 79/50 L 94 07/13/19 23:00 97 H 20 88 L Pulse Ox 07/14/19 06:20 07/14/19 06:18 07/14/19 06:10 07/14/19 06:03 07/14/19 06:00 07/14/19 05:50 07/14/19 05:48 07/14/19 05:40 07/14/19 05:33 07/14/19 05:30 07/14/19 05:20 07/14/19 05:18 07/14/19 05:10 07/14/19 05:03 07/14/19 05:00 07/14/19 04:50 07/14/19 04:48 07/14/19 04:40 07/14/19 04:33 07/14/19 04:30 07/14/19 04:20 07/14/19 04:18 07/14/19 04:10 07/14/19 04:03 07/14/19 04:00 07/14/19 03:50 07/14/19 03:48 07/14/19 03:40 07/14/19 03:33 07/14/19 03:30 07/14/19 03:20 07/14/19 03:18 07/14/19 03:10 07/14/19 03:03 07/14/19 03:00 07/14/19 02:50 07/14/19 02:48 07/14/19 02:40 07/14/19 02:33 07/14/19 02:30 07/14/19 02:20 07/14/19 02:18 07/14/19 02:10 07/14/19 02:03 07/14/19 02:00 07/14/19 01:50 07/14/19 01:48 07/14/19 01:40 07/14/19 01:33 07/14/19 01:30 07/14/19 01:20 07/14/19 01:18 07/14/19 01:10 07/14/19 01:03 07/14/19 01:00 07/14/19 00:50 07/14/19 00:48 07/14/19 00:40 07/14/19 00:33 07/14/19 00:30 07/14/19 00:20 07/14/19 00:18 07/14/19 00:10 07/14/19 00:03 07/14/19 00:00 07/13/19 23:59 95 07/13/19 23:50 07/13/19 23:48 07/13/19 23:43 07/13/19 23:40 07/13/19 23:33 07/13/19 23:30 07/13/19 23:20 07/13/19 23:17 07/13/19 23:10 07/13/19 23:05 07/13/19 23:03 07/13/19 23:00
[2019-07-14] MEDS: RIVAROXABAN 20 MG TAB PO SCH (10:14)
[2019-07-14 10:50] LABS: Hematocrit (blood only) 26.9 % (37-47); Hemoglobin 9.2 g/dL (12.0-16.0)
--- NOTE | 2019-07-14 12:40 | Cardiology Progress Note ---
Date of Service July 14, 2019 Assessment & Plan (1) S/P femoral-popliteal bypass surgery: The patient had a right axillo-fem and fem-popliteal bypass graft. Management per Dr. Bolanos's team. (2) CAD (coronary artery disease): Cardiac catheterization performed in July 1998 because of unstable angina pectoris. She was found to have a 90% proximal OM1 stenosis and had a 3.0 x 23 mm stent deployed. She has done well with medical management since that time. (3) PVD (peripheral vascular disease): As above. Also had a left AKA performed in 2015. Had bilateral iliac stenting performed in October 2016. (4) HTN (hypertension): Required a course of pressors, however, they have been weaned to off. Restart antihypertensives when necessary. (5) HLD (hyperlipidemia): Continue atorvastatin. Subjective The patient is resting comfortably in bed without complaints of chest pain or dyspnea. Postoperative pain well controlled. Physical Exam Physical Exam: [place] versus and warmIn general this is a well-developed well- nourished white female in no acute distress. HEENT exam is negative. Neck is supple with full carotid upstrokes. There are no carotid bruits. No JVD. There is no thyromegaly. Cardiovascular exam reveals a regular rhythm with a normal S1 and S2. No S3, S4, or murmurs are noted. Lungs are clear without rales, rhonchi, or wheezes. Abdomen is soft and nontender without bruits. Extremities reveal intact radial artery pulses bilaterally. Right lower extremity is ruborous and warm. A left AKA is noted. There is no peripheral edema. Results & Data Vital Signs (Past 12 Hours) Vital Signs Temp Pulse Pulse Resp BP BP Pulse Ox 07/14/19 10:35 36.7 C 78 20 84/48 L 91 07/14/19 09:10 68 17 07/14/19 09:00 71 19 07/14/19 08:50 78 18 07/14/19 08:40 78 15 07/14/19 08:30 91 H 18 07/14/19 08:20 107 H 21 07/14/19 08:10 103 H 21 89 L 07/14/19 08:03 78 15 87/44 L 95 07/14/19 08:00 78 9 L 94 07/14/19 07:50 92 H 20 94 07/14/19 07:48 101 H 17 85/52 L 92 07/14/19 07:40 103 H 19 92 07/14/19 07:34 108 H 19 103/52 L 94 07/14/19 07:30 113 H 29 H 96 07/14/19 07:20 73 12 98 07/14/19 07:18 79 13 85/38 L 96 07/14/19 07:10 79 13 98 07/14/19 07:03 99 H 22 86/44 L 96 07/14/19 07:00 108 H 24 97 07/14/19 06:57 73 14 93/52 L 95 07/14/19 06:50 77 19 97 07/14/19 06:48 73 18 86/48 L 98 07/14/19 06:40 77 19 97 07/14/19 06:33 85 13 90/53 L 94 07/14/19 06:30 91 H 19 93 07/14/19 06:20 84 19 96 07/14/19 06:18 73 6 L 99/48 L 94 07/14/19 06:10 101 H 17 94 07/14/19 06:03 81 12 99/54 L 95 07/14/19 06:00 72 12 92 07/14/19 05:50 99 H 13 95 07/14/19 05:48 80 13 100/50 L 96 07/14/19 05:40 93 H 14 92 07/14/19 05:33 79 13 92/50 L 96 07/14/19 05:30 80 15 97 07/14/19 05:20 74 14 95 07/14/19 05:18 80 15 91/57 L 97 07/14/19 05:10 77 16 97 07/14/19 05:03 81 18 91/49 L 96 07/14/19 05:00 79 15 95 07/14/19 04:50 106 H 25 H 94 07/14/19 04:48 82 14 97/52 L 97 07/14/19 04:40 75 16 92 07/14/19 04:33 69 14 89/47 L 96 07/14/19 04:30 78 14 95 07/14/19 04:20 96 H 16 93 07/14/19 04:18 98 H 22 82/49 L 93 07/14/19 04:10 96 H 20 94 07/14/19 04:03 72 15 95/52 L 95 07/14/19 04:00 90 17 96 07/14/19 03:50 80 9 L 91 07/14/19 03:48 92 H 19 93/55 L 94 07/14/19 03:40 81 18 95 07/14/19 03:33 74 11 L 94/51 L 95 07/14/19 03:30 89 12 95 07/14/19 03:20 78 13 95 07/14/19 03:18 103 H 19 82/73 L 89 L 07/14/19 03:10 91 H 16 94 07/14/19 03:03 79 16 100/61 95 07/14/19 03:00 80 13 95 07/14/19 02:50 88 19 92 07/14/19 02:48 75 19 84/61 L 96 07/14/19 02:40 95 H 15 85 L 07/14/19 02:33 83 14 101/52 L 97 07/14/19 02:30 83 15 93 07/14/19 02:20 88 13 95 07/14/19 02:18 85 15 92/58 L 93 07/14/19 02:10 87 15 92 07/14/19 02:03 80 14 104/53 L 92 07/14/19 02:00 83 13 97 07/14/19 01:50 82 12 87 L 07/14/19 01:48 85 6 L 83/55 L 96 07/14/19 01:40 79 16 88 L 07/14/19 01:33 90 13 94/60 L 94 07/14/19 01:30 78 12 96 07/14/19 01:20 77 10 L 93 07/14/19 01:18 84 8 L 93/55 L 94 07/14/19 01:10 86 13 93 07/14/19 01:03 79 10 L 91/56 L 94 07/14/19 01:00 85 16 92 07/14/19 00:50 81 14 93 07/14/19 00:48 93 H 15 89/54 L 92 07/14/19 00:40 94 H 16 89 L Laboratory Results Laboratory Results - last 24 hr 07/13/19 07/13/19 07/13/19 17:50 18:14 18:14 WBC 23.03 H D RBC 3.60 L Hgb 11.2 L Hct 33.1 L MCV 91.9 MCH 31.1 MCHC 33.8 RDW Std Deviation 43.0 RDW Coeff of Jean 12.7 Plt Count 296 MPV 9.9 Immature Gran % (Auto) 0.3 Neut % (Auto) 92.9 Lymph % (Auto) 3.0 Linn % (Auto) 3.6 Eos % (Auto) 0.1 Baso % (Auto) 0.1 Immature Gran # (Auto) 0.08 H Neut # (Auto) 21.37 H Lymph # (Auto) 0.70 L Linn # (Auto) 0.82 H Eos # (Auto) 0.03 Baso # (Auto) 0.03 Echinocytes 1+ APTT PTT Ratio Sodium 135 L Potassium 3.2 L Chloride 106 Carbon Dioxide 20 L Anion Gap 9.0 BUN 10 Creatinine 0.48 L Est Cr Clr Drug Dosing 77.6 Est GFR ( Amer) 109.7 Est GFR (Non-Af Amer) 94.6 BUN/Creatinine Ratio 21.3 H Glucose 182 H Lactate Calcium 7.8 L D Random Cortisol Nasal Screen MRSA (PCR) Negative 07/14/19 07/14/19 07/14/19 00:52 00:52 04:14 WBC RBC Hgb Hct MCV MCH MCHC RDW Std Deviation RDW Coeff of Jean Plt Count MPV Immature Gran % (Auto) Neut % (Auto) Lymph % (Auto) Linn % (Auto) Eos % (Auto) Baso % (Auto) Immature Gran # (Auto) Neut # (Auto) Lymph # (Auto) Linn # (Auto) Eos # (Auto) Baso # (Auto) Echinocytes APTT 28.0 PTT Ratio 1.0 Sodium Potassium Chloride Carbon Dioxide Anion Gap BUN Creatinine Est Cr Clr Drug Dosing Est GFR ( Amer) Est GFR (Non-Af Amer) BUN/Creatinine Ratio Glucose Lactate 1.6 Calcium Random Cortisol 6.04 Nasal Screen MRSA (PCR) 07/14/19 07/14/19 07/14/19 04:14 04:14 05:48 WBC 11.38 H D RBC 2.86 L Hgb 9.0 L Hct 26.0 L MCV 90.9 MCH 31.5 MCHC 34.6 RDW Std Deviation 42.7 RDW Coeff of Jean 12.8 Plt Count 191 MPV 10.3 Immature Gran % (Auto) 0.2 Neut % (Auto) 86.8 Lymph % (Auto) 3.7 Linn % (Auto) 9.3 Eos % (Auto) 0.0 Baso % (Auto) 0.0 Immature Gran # (Auto) 0.02 Neut # (Auto) 9.88 H Lymph # (Auto) 0.42 L Linn # (Auto) 1.06 H Eos # (Auto) 0.00 Baso # (Auto) 0.00 Echinocytes APTT PTT Ratio Sodium 134 L Potassium 3.8 D Chloride 106 Carbon Dioxide 24 Anion Gap 4.0 BUN 9 Creatinine 0.44 L Est Cr Clr Drug Dosing 84.7 Est GFR ( Amer) 112.8 Est GFR (Non-Af Amer) 97.4 BUN/Creatinine Ratio 21.3 H Glucose 156 H Lactate Calcium 7.5 L Random Cortisol Nasal Screen MRSA (PCR) 07/14/19 10:42 WBC RBC Hgb 9.2 L Hct 26.9 L MCV MCH MCHC RDW Std Deviation RDW Coeff of Jean Plt Count MPV Immature Gran % (Auto) Neut % (Auto) Lymph % (Auto) Linn % (Auto) Eos % (Auto) Baso % (Auto) Immature Gran # (Auto) Neut # (Auto) Lymph # (Auto) Linn # (Auto) Eos # (Auto) Baso # (Auto) Echinocytes APTT PTT Ratio Sodium Potassium Chloride Carbon Dioxide Anion Gap BUN Creatinine Est Cr Clr Drug Dosing Est GFR ( Amer) Est GFR (Non-Af Amer) BUN/Creatinine Ratio Glucose Lactate Calcium Random Cortisol Nasal Screen MRSA (PCR) PG Care Time/CCT Total # of Minutes Spent Total Time Spent with Patient: Total time spent is greater than 50% in coordination of care (as documented) at patient's floor/unit and/or counseling patient:
[2019-07-14] MEDS: OXYCODONE/ACETAMINOPHEN 5mg/325mg TAB PO PRN (22:32)
[2019-07-15 06:07] LABS: Hematocrit (blood only) 25.2 % (37-47); Hemoglobin 8.6 g/dL (12.0-16.0); Mean Corpuscular Hemoglobin 31.2 pg (25-34); Mean Corpuscular Hgb Conc 34.1 g/dL (32-36); Mean Corpuscular Volume 91.3 fL (80-100); Mean Platelet Volume 10.2 fL (7.4-10.4); Platelet Count 195 K/uL (130-400); RDW Coefficient of Variation 12.9 % (11.5-14.5); RDW Standard Deviation 43.4 fL (36.4-46.3); Red Blood Count 2.76 M/uL (4.2-5.4); White Blood Count 9.95 K/uL (4.8-10.8)
[2019-07-15 06:26] LABS: Partial Thromboplastin Ratio 1.1; Partial Thromboplastin Time 29.9 Seconds (21.0-31.0)
[2019-07-15] MEDS: RIVAROXABAN 20 MG TAB PO SCH (07:25)
[2019-07-15] MEDS: AMLODIPINE BESYLATE 5 MG TAB PO SCH (07:25)
[2019-07-15] MEDS: cilostazoL 100 MG TAB PO SCH ×2 (07:25→20:22)
[2019-07-15] MEDS: FUROSEMIDE 40 MG TAB PO SCH ×2 (07:25→16:50)
[2019-07-15] MEDS: ASPIRIN 81 MG ECTAB PO SCH (07:26)
[2019-07-15] MEDS: METOPROLOL TARTRATE 50 MG TAB PO SCH ×2 (07:26→20:21)
[2019-07-15] MEDS: ATORVASTATIN 40 MG TAB PO SCH (07:26)
[2019-07-15] MEDS ORDERED: SODIUM CHLORIDE 0.9% 250 ML IV PRN ×2 (08:07→11:26)
--- NOTE | 2019-07-15 08:24 | Surgery Progress Note ---
Date of Service July 15, 2019 Assessment & Plan (1) S/P femoral-popliteal bypass surgery: Pt doing well post op after R ax-fem and fem pop BPG procedure yesterday. Hgb 8.6 today. Due to her cardiac and vascular history will transfuse one unit to better perfusion. Continue physical therapy. Heart has not been a problem. Will d/c telemetry Subjective The patient is resting comfortably in bed without complaints of chest pain or dyspnea. Postoperative pain well controlled. She was out of bed yesterday with PT Physical Exam Constitutional: WD/WN, vitals as above Cardiovascular: RRR, no murmur, no edema Vessels: dorsalis pedis pulses present (on right with doppler) Skin: + wound (right foot wound dry) and + incision (dry and clean) Results & Data Vital Signs (Past 12 Hours) Vital Signs Temp Pulse Pulse Resp BP Pulse Ox 07/15/19 07:47 36.9 C 111 H 20 110/69 97 07/15/19 04:56 36.7 C 96 H 19 91/54 L 90 07/15/19 00:24 37.0 C 91 H 20 95/59 L 92 07/14/19 22:44 110 H
[2019-07-15] MEDS: OXYCODONE/ACETAMINOPHEN 5mg/325mg TAB PO PRN ×2 (12:14→20:18)
[2019-07-16] MEDS: cilostazoL 100 MG TAB PO SCH ×2 (07:25→20:19)
[2019-07-16] MEDS: RIVAROXABAN 20 MG TAB PO SCH (07:25)
[2019-07-16] MEDS: AMLODIPINE BESYLATE 5 MG TAB PO SCH (07:25)
[2019-07-16] MEDS: METOPROLOL TARTRATE 50 MG TAB PO SCH ×2 (07:25→20:19)
[2019-07-16] MEDS: ATORVASTATIN 40 MG TAB PO SCH (07:25)
[2019-07-16] MEDS: FUROSEMIDE 40 MG TAB PO SCH ×2 (07:26→16:42)
[2019-07-16] MEDS: ASPIRIN 81 MG ECTAB PO SCH (07:26)
--- NOTE | 2019-07-16 11:55 | Surgery Progress Note ---
Date of Service July 16, 2019 Assessment & Plan (1) S/P femoral-popliteal bypass surgery: Pt doing well post op after R ax-fem and fem pop BPG She does not use her artificial leg at home and uses a wheelchair. If she is able to transfer well like she is doing now we can probably get her home in the middle of the week with visiting nurses. Subjective The patient has no complaints. She is transferring from bed to wheelchair without too much difficulty. She does complain of some small amount of serosanguineous drainage from the wound yesterday when she was up on her feet Physical Exam Constitutional: WD/WN, vitals as above Respiratory: normal respiratory effort, lungs clear to auscultation Cardiovascular: RRR, no murmur, no edema Vessels: dorsalis pedis pulses present (on right with doppler) Skin: + wound (right foot wound dry) and + incision (dry and clean) Results & Data Vital Signs (Past 12 Hours) Vital Signs Temp Pulse Resp BP Pulse Ox 07/16/19 11:00 36.7 C 87 18 99/64 L 91 07/16/19 07:53 36.8 C 101 H 20 98/64 L 92 07/16/19 04:39 36.9 C 119 H 20 103/61 92
[2019-07-16] MEDS: OXYCODONE/ACETAMINOPHEN 5mg/325mg TAB PO PRN (20:19)
[2019-07-17] MEDS: OXYCODONE/ACETAMINOPHEN 5mg/325mg TAB PO PRN ×2 (02:20→20:25)
[2019-07-17 05:39] LABS: Hematocrit (blood only) 28.9 % (37-47); Hemoglobin 9.9 g/dL (12.0-16.0); Mean Corpuscular Hemoglobin 31.6 pg (25-34); Mean Corpuscular Hgb Conc 34.3 g/dL (32-36); Mean Corpuscular Volume 92.3 fL (80-100); Mean Platelet Volume 9.9 fL (7.4-10.4); Platelet Count 261 K/uL (130-400); RDW Coefficient of Variation 13.6 % (11.5-14.5); RDW Standard Deviation 45.4 fL (36.4-46.3); Red Blood Count 3.13 M/uL (4.2-5.4); White Blood Count 9.34 K/uL (4.8-10.8)
[2019-07-17] MEDS: AMLODIPINE BESYLATE 5 MG TAB PO SCH (08:59)
[2019-07-17] MEDS: FUROSEMIDE 40 MG TAB PO SCH ×2 (08:59→16:55)
[2019-07-17] MEDS: ASPIRIN 81 MG ECTAB PO SCH (09:02)
[2019-07-17] MEDS: RIVAROXABAN 20 MG TAB PO SCH (09:03)
[2019-07-17] MEDS: ATORVASTATIN 40 MG TAB PO SCH (09:03)
[2019-07-17] MEDS: cilostazoL 100 MG TAB PO SCH ×2 (09:03→20:26)
[2019-07-17] MEDS: METOPROLOL TARTRATE 50 MG TAB PO SCH ×2 (09:03→20:27)
--- NOTE | 2019-07-17 09:56 | Cardiology Progress Note ---
Date of Service July 17, 2019 Assessment & Plan (1) S/P femoral-popliteal bypass surgery: Status post right axillo-fem and fem-popliteal bypass graft. Management per Dr. Bolanos's team. (2) CAD (coronary artery disease): Cardiac catheterization performed in July 1998 revealed a 90% proximal OM1 stenosis and a 3.0 x 23 mm stent was deployed. She has done well with medical management since that time. (3) PVD (peripheral vascular disease): As above. Also had a left AKA performed in 2015. Had bilateral iliac stenting performed in October 2016. (4) HTN (hypertension): Adequate control on metoprolol tartrate, amlodipine, and Lasix. (5) HLD (hyperlipidemia): Continue atorvastatin. Subjective The patient is resting comfortably in the bedside chair without complaints of chest pain or dyspnea. Postoperative pain is well controlled. Physical Exam Physical Exam: In general this is a well-developed well-nourished white female in no acute distress. HEENT exam is negative. Neck is supple with full carotid upstrokes. There are no carotid bruits. No JVD. There is no thyromegaly. Cardiovascular exam reveals a regular rhythm with a normal S1 and S2. No S3, S4, or murmurs are noted. Lungs are clear without rales, rhonchi, or wheezes. Abdomen is soft and nontender without bruits. Extremities reveal intact radial artery pulses bilaterally. Right lower extremity is ruborous and warm. A left AKA is noted. There is no peripheral edema. Results & Data Vital Signs (Past 12 Hours) Vital Signs Temp Pulse Resp BP Pulse Ox Pulse Ox 07/17/19 08:11 90 07/17/19 07:00 36.8 C 81 18 137/64 93 07/17/19 04:10 36.9 C 81 16 134/65 90 07/16/19 23:55 36.5 C 110 H 18 124/66 95 PG Care Time/CCT Total # of Minutes Spent Total Time Spent with Patient: Total time spent is greater than 50% in coordination of care (as documented) at patient's floor/unit and/or counseling patient:
--- NOTE | 2019-07-17 10:24 | Surgery Progress Note ---
Date of Service July 17, 2019 Assessment & Plan (1) S/P femoral-popliteal bypass surgery: Pt doing well post op after R ax-fem and fem pop BPG. Transferring with operative leg. Continue PT/OT, likely d/c home later this week. Subjective 78 yo f POD # 4 after L ax-fem and fem-pop, seen in f/u today. Pt states she is getting stronger, able to transfer with her operative legs. Denies any new complaints. Review of Systems Review of Systems: All systems reviewed & are unremarkable except as noted in HPI & below Physical Exam Constitutional: WD/WN, vitals as above Respiratory: normal respiratory effort, lungs clear to auscultation Cardiovascular: Rate/Rhythm: regular rate and regular rhythm Vessels: posterior tibial pulses present (with doppler) and dorsalis pedis pulses present (with doppler); + abnormal peripheral pulses Extremities: normal capillary refill and + pedal edema (mild) Gastrointestinal (Abdomen): normal bowel sounds, soft, nontender, no hepatosplenomegaly Musculoskeletal: Extremities: strength 5/5 throughout Skin: + incision (soft edema, no shadowing on dressings) Neurologic: moves all extremities; no focal motor deficits Results & Data Vital Signs (Past 12 Hours) Vital Signs Temp Pulse Resp BP Pulse Ox Pulse Ox 07/17/19 10:06 94 07/17/19 10:05 87 L 07/17/19 10:03 87 L 07/17/19 08:11 90 07/17/19 07:00 36.8 C 81 18 137/64 93 07/17/19 04:10 36.9 C 81 16 134/65 90 07/16/19 23:55 36.5 C 110 H 18 124/66 95
[2019-07-18] MEDS: ATORVASTATIN 40 MG TAB PO SCH (08:56)
[2019-07-18] MEDS: ASPIRIN 81 MG ECTAB PO SCH (08:56)
[2019-07-18] MEDS: AMLODIPINE BESYLATE 5 MG TAB PO SCH (08:56)
[2019-07-18] MEDS: METOPROLOL TARTRATE 50 MG TAB PO SCH (08:56)
[2019-07-18] MEDS: RIVAROXABAN 20 MG TAB PO SCH (08:56)
[2019-07-18] MEDS: FUROSEMIDE 40 MG TAB PO SCH (08:56)
[2019-07-18] MEDS: cilostazoL 100 MG TAB PO SCH (08:57)
--- NOTE | 2019-07-18 11:04 | Surgery Progress Note ---
Date of Service July 18, 2019 Assessment & Plan (1) S/P femoral-popliteal bypass surgery: Pt doing well post op after R ax-fem and fem pop BPG. Transferring with operative leg. D/C home today wiht home nursing Subjective 78 yo f POD # 5 after L ax-fem and fem-pop, seen in f/u today. Pt states she is getting stronger, able to transfer with her operative leg. Denies any new complaints. Review of Systems Review of Systems: All systems reviewed & are unremarkable except as noted in HPI & below Physical Exam 2 Constitutional: WD/WN, vitals as above Respiratory: normal respiratory effort, lungs clear to auscultation Cardiovascular: Rate/Rhythm: regular rate and regular rhythm Vessels: posterior tibial pulses present (with doppler) and dorsalis pedis pulses present (with doppler); + abnormal peripheral pulses Extremities: normal capillary refill and + pedal edema (mild) Gastrointestinal (Abdomen): normal bowel sounds, soft, nontender, no hepatosplenomegaly Musculoskeletal: Extremities: strength 5/5 throughout Skin: + incision (C/D/I, tender) Neurologic: moves all extremities; no focal motor deficits Results & Data Vital Signs (Past 12 Hours) Vital Signs Temp Pulse Resp BP Pulse Ox Pulse Ox 07/18/19 08:58 90 07/18/19 07:25 36.8 C 86 18 129/69 91 07/18/19 04:00 92 07/18/19 03:00 91 07/18/19 02:00 92 07/18/19 01:00 93 07/18/19 00:00 93 07/17/19 23:10 36.6 C 78 16 105/68 94
--- NOTE | 2019-07-18 12:55 | Cardiology Progress Note ---
Date of Service July 18, 2019 Assessment & Plan (1) S/P femoral-popliteal bypass surgery: Status post right axillo-fem and fem-popliteal bypass graft. Management per Dr. Bolanos. (2) CAD (coronary artery disease): Cardiac catheterization performed in July 1998 revealed a 90% proximal OM1 stenosis. A 3.0 x 23 mm stent was deployed. She has done well with medical therapy since that time. (3) PVD (peripheral vascular disease): Also had a left AKA performed in 2015. Had bilateral iliac stenting performed in October 2016. (4) HTN (hypertension): Adequate control on metoprolol tartrate, amlodipine, and Lasix. (5) HLD (hyperlipidemia): Continue atorvastatin. Subjective The patient is resting comfortably in bed without complaints of chest pain or dyspnea. She is anxious for hospital discharge. Physical Exam Physical Exam: In general this is a well-developed well-nourished white female in no acute distress. HEENT exam is negative. Neck is supple with full carotid upstrokes. There are no carotid bruits. No JVD. There is no thyromegaly. Cardiovascular exam reveals a regular rhythm with a normal S1 and S2. No S3, S4, or murmurs are noted. Lungs are clear without rales, rhonchi, or wheezes. Abdomen is soft and nontender without bruits. Extremities reveal intact radial artery pulses bilaterally. Right lower extremity is ruborous and warm. A left AKA is noted. There is no peripheral edema. Results & Data Vital Signs (Past 12 Hours) Vital Signs Temp Pulse Resp BP Pulse Ox Pulse Ox 07/18/19 12:04 89 L 07/18/19 08:58 90 07/18/19 08:08 88 L 07/18/19 07:25 36.8 C 86 18 129/69 91 07/18/19 04:00 92 07/18/19 03:00 91 07/18/19 02:00 92 07/18/19 01:00 93 PG Care Time/CCT Total # of Minutes Spent Total Time Spent with Patient: Total time spent is greater than 50% in coordination of care (as documented) at patient's floor/unit and/or counseling patient:
== END 2019-07-18 13:49 | disposition home health service (06) | DRG 301 ==
LOC: ASU 10:45 → 3W 16:59 → 1E 07-13 17:46 → 2N 07-14 08:58 → 3W 07-17 04:44

== ENCOUNTER 2019-08-06 08:32 | Observation (INO) ==
[2019-08-06 09:27] LABS: Basophils # (auto) 0.05 K/uL (0-0.2); Basophils % (auto) 0.4 %; Eosinophils # (auto) 0.05 K/uL (0-0.5); Eosinophils % (auto) 0.4 %; Hematocrit (blood only) 40.4 % (37-47); Hemoglobin 13.7 g/dL (12.0-16.0); Immature Granulocytes # (auto) 0.02 K/uL (0.00-0.02); Immature Granulocytes % (auto) 0.2 %; Lymphocytes # (auto) 0.87 K/uL (1.2-3.4); Lymphocytes % (auto) 7.8 %; Mean Corpuscular Hemoglobin 31.5 pg (25-34); Mean Corpuscular Hgb Conc 33.9 g/dL (32-36); Mean Corpuscular Volume 92.9 fL (80-100); Mean Platelet Volume 9.6 fL (7.4-10.4); Monocytes # (auto) 0.89 K/uL (0.11-0.59); Neutrophils # (auto) 9.27 K/uL (1.4-6.5); Neutrophils % (auto) 83.2 %; Platelet Count 381 K/uL (130-400); RDW Coefficient of Variation 14.6 % (11.5-14.5); RDW Standard Deviation 49.4 fL (36.4-46.3); Red Blood Count 4.35 M/uL (4.2-5.4); White Blood Count 11.15 K/uL (4.8-10.8)
[2019-08-06 09:32] LABS: INR 1.5 (0.9-1.1); Partial Thromboplastin Ratio 1.4; Partial Thromboplastin Time 37.4 Seconds (21.0-31.0); Prothrombin Time 14.5 Seconds (9.0-12.0)
[2019-08-06 09:39] LABS: BUN Creatinine Ratio 13.8 (10-20); Calcium 9.5 mg/dl (8.5-10.1); Creatinine Clr Calc Pharmacy 51.8 ml/min; Est GFR (African American) 93.6; Est GFR (Non-African American) 80.8; Magnesium 1.9 mg/dl (1.8-2.4); Potassium 3.5 mmol/L (3.5-5.1)
--- NOTE | 2019-08-06 10:18 | History & Physical Report ---
Date of Service August 06, 2019 Assessment & Plan (1) Lower GI bleed: (2) Current use of anticoagulant therapy: This is a 78yo F with a PMH of PVD with recent R Axillary-Femoral and Femoral-tibioperoneal trunk prosthetic bypass on 07/13/19, CAD (s/p stent in s), HTN, HLD and other medical problems listed below who presents with rectal bleeding since this morning. -Underwent vascular surgery approximately 3 weeks ago with some intermittent constipation following procedure -Yesterday into today, patient had 4-5 bouts of diarrhea mixed with bright red blood. No clots or melena. No nausea, vomiting or abdominal pain -Most recent colonoscopy on record is from Mar 2018 with diverticulosis in the sigmoid colon and internal hemorrhoids -Afebrile, no leukocytosis, hgb stable at 13.7. Bright red blood on rectal exam performed by ED provider -Last took Xarelto and aspirin last night -Discussed with Dr. Mac of GI group, who will plan for colonoscopy tomorrow -H&H Q6H, clear liquids today, NPO after midnight with Golytely prep (3) PVD (peripheral vascular disease): Recent R Axillary-Femoral and Femoral-tibioperoneal trunk prosthetic bypass on 07/13/19, h/o L AKA in 2016 -Continue statin. Holding Xarelto and aspirin for procedure (4) CAD (coronary artery disease): H/o coronary stent in -Continue statin, holding aspirin with acute rectal bleeding -Follows with [facility] [place] (5) HTN (hypertension): Continue metoprolol tartrate, amlodipine, and lasix (6) Leg wound, right: H/o ischemic RLE wound on LLE, s/p 10 day course of cipro completed today -No evidence of infection. Wound care consulted DVT Ppx: Holding Xarelto and aspirin today due to planned colonoscopy tomorrow Code status: DNR per discussion with patient PCP: Lara Dispo: Observation med tele Patient seen in collaboration with Dr. Cole. Please see addendum. History of Present Illness Chief Complaint: rectal bleed Primary Care Provider: Arturo Bermudez MD This is a 78yo F with a PMH of PVD with recent R Axillary-Femoral and Femoral- tibioperoneal trunk prosthetic Bypass on 07/13/19, CAD (s/p stent in 90s), HTN, HLD and other medical problems listed below who presents with rectal bleeding since this morning. Underwent vascular surgery approximately 3 weeks ago and has been constipated intermittently following procedure. Has been taking oxycodone each night and had not had a bowel movement for 4 days. Yesterday into today, patient had 4-5 bouts of diarrhea mixed with bright red blood. No clots or melena. No nausea, vomiting or abdominal pain. Denies fever, chills, lightheadedness, visual changes, chest pain, palpitations or SOB. Denies history of GI bleeds. Most recent colonoscopy on record is from Mar 2018 with diverticulosis in the sigmoid colon and internal hemorrhoids. Allergies Allergy/AdvReac Type Severity Reaction Status Date / Time diphenhydramine AdvReac Unknown MAKES Verified 08/06/19 09:42 HEART RACE Home Medications Home Medications Medication Instructions Recorded Confirmed Type Calcium 600 + D(3) 1 tab PO QAM 03/24/18 08/06/19 History amlodipine [Norvasc] 10 mg PO QAM 03/24/18 08/06/19 History atorvastatin [Lipitor] 40 mg PO HS 03/24/18 08/06/19 History metoprolol tartrate [Lopressor] 50 mg PO BID 03/24/18 08/06/19 History multivitamin 1 tab PO QAM 03/24/18 08/06/19 History omega 8-cit-iip-fish oil [Fish Oil] 1 tab PO QAM 03/24/18 08/06/19 History potassium chloride [K-Tab] 20 meq PO BID 03/24/18 08/06/19 History cilostazol 100 mg tablet 100 mg PO BID #60 tab 02/23/19 08/06/19 Rx nitroglycerin 0.4 mg sublingual 0.4 mg SUBLINGUAL Q5M PRN tab 02/23/19 08/06/19 History tablet aspirin 81 mg tablet,delayed 81 mg PO QAM 06/05/19 08/06/19 History release docusate sodium [Colace] 100 mg PO BID #60 cap 07/18/19 08/06/19 Rx collagenase clostridium histo. 1 applic TOPICAL DAILY 08/06/19 08/06/19 History [Santyl] furosemide [Lasix] 40 mg PO BID 08/06/19 08/06/19 History oxycodone-acetaminophen [Percocet] 1 - 2 tab PO HS PRN 08/06/19 08/06/19 History rivaroxaban [Xarelto] 20 mg PO HS 08/06/19 08/06/19 History Past Med/Surg History Medical History CAD (coronary artery disease) Hyperlipidemia Hypertension Osteoarthritis Peripheral vascular disease Surgical History H/O breast surgery X 2-BENIGN History of above knee amputation LEFT-08/2015-DOES NOT WEAR PROSTHESIS History of appendectomy History of below knee amputation LEFT History of bilateral tubal ligation History of cardiac cath 1 STENT-15 YRS AGO Previous back surgery BONE SPUR REMOVED Family History Son Family history of diabetes mellitus Social History Preferred Language: Chinese Communication Ability: Effective Shroud Line Tier Required: No Beliefs That Will Affect Care: None marital status: Current Living Situation: Spouse Current Living Situation Comment: SPOUSE Other Information That Helps Us Care for You: No Feels Safe at Home: Yes Safety Concerns: Feels Safe At This Time Smoking Status: Former smoker Tobacco Type: cigarettes ; Smoking End Date: +15 years ago ; Second Hand Exposure: No ; Hx Alcohol Use: Yes Alcohol type: beer Hx Substance Use: No Review of Systems Review of Systems: At least ten systems reviewed and negative except as noted in the HPI. Physical Exam Physical Exam: Please see Dr. Cole's addendum for physical exam. Results & Data Vital Signs (Past 12 Hours) Vital Signs Temp Pulse Resp BP Pulse Ox 08/06/19 08:39 37 C 72 20 116/68 96 Laboratory Results Short CBC 08/06/19 Range/Units 08:56 WBC 11.15 H (4.8-10.8) K/uL Hgb 13.7 (12.0-16.0) g/dL Hct 40.4 (37-47) % Plt Count 381 (130-400) K/uL BMP 08/06/19 08:56 Sodium 135 L Potassium 3.5 Chloride 100 Carbon Dioxide 25 BUN 10 Creatinine 0.72 Glucose 128 H Calcium 9.5 Supervising Physician Co-Signing Physician Notes This is a 78-year-old female who lives at home with her and has extensive past medical history including coronary artery disease and peripheral vascular disease and she underwent right axillary to femoral bypass recently after which she was placed on Xarelto. She is status post left AKA because of vascular disease. After the bypass procedure she was placed on Percocet for pain. She developed some constipation for which she started taking Colace. When finally she had a bowel movement after 4 days last night she noticed blood in it. She had bright red blood in all her subsequent bowel movements. She denied any abdominal pain. She has not had any fever. On exam: General: Alert and oriented x 3. NAD HENT: Normocephalic, atraumatic, pupils round and equally reactive to light, oral mucosa: moist Neck: Supple, no lymph nodes palpated, no thyromegaly CVS: Normal S1, S2. No murmur, rub or gallop. PMI non displaced. Resp: Normal percussion. Normal breath sounds bilaterally. No wheezing or rales heard Abdomen: Soft, midline laparotomy scar, non tender, no hepatosplenomegaly. Bowel sounds positive Extremities: Right leg with pitting edema and tenderness, a 2 x 2 centimeter ulcer on the dorsum of the foot with black eschar without any signs of infection, left AKA Neuro: Power 5/5 throughout, grossly normal sensations, DTR's normal Psychiatry: Normal mood, normal thought process Rectal exam by the ER showed bright red blood but no obvious external source of bleeding. The patient took her Xarelto last night. Her hemoglobin and he matocrit are normal. She had a colonoscopy in 2018 which showed some diverticulosis and internal hemorrhoid. She may have a diverticular or hemorrhoidal bleed. Discussed with Dr. Mac from gastroenterology. He recommended bowel preparation tonight for colonoscopy tomorrow. We will hold aspirin and Xarelto and trend hemoglobin and hematocrit.
[2019-08-06 12:27] LABS: Hematocrit (blood only) 38.4 % (37-47); Hemoglobin 12.6 g/dL (12.0-16.0)
[2019-08-06] MEDS ORDERED: ACETAMINOPHEN 325 MG TAB PO PRN (13:05)
[2019-08-06] MEDS ORDERED: OXYCODONE/ACETAMINOPHEN 5mg/325mg TAB PO PRN (13:06)
[2019-08-06] MEDS ORDERED: COLLAGENASE OINT 30 GM TUBE TOP SCH (13:15)
[2019-08-06] MEDS: FUROSEMIDE 40 MG TAB PO SCH (16:35)
[2019-08-06 18:01] LABS: Hematocrit (blood only) 36.3 % (37-47)
[2019-08-06] MEDS: LAVAGE SOLUTION 4000ML PO SCH (18:40)
[2019-08-06] MEDS ORDERED: ATORVASTATIN 40 MG TAB PO SCH (21:00)
[2019-08-06] MEDS: POTASSIUM CHLORIDE 20 MEQ TABCR PO SCH (21:10)
[2019-08-06] MEDS: COLLAGENASE OINT 30 GM TUBE TOP SCH (21:11)
[2019-08-06] MEDS: METOPROLOL TARTRATE 50 MG TAB PO SCH (21:11)
[2019-08-07 05:39] LABS: Hematocrit (blood only) 34.8 % (37-47); Hemoglobin 11.7 g/dL (12.0-16.0); Mean Corpuscular Hemoglobin 31.2 pg (25-34); Mean Corpuscular Hgb Conc 33.6 g/dL (32-36); Mean Corpuscular Volume 92.8 fL (80-100); Mean Platelet Volume 9.3 fL (7.4-10.4); Platelet Count 281 K/uL (130-400); RDW Coefficient of Variation 14.7 % (11.5-14.5); RDW Standard Deviation 49.9 fL (36.4-46.3); Red Blood Count 3.75 M/uL (4.2-5.4); White Blood Count 6.58 K/uL (4.8-10.8)
[2019-08-07] MEDS: LAVAGE SOLUTION 4000ML PO SCH (05:51)
[2019-08-07 06:12] LABS: BUN Creatinine Ratio 12.2 (10-20); Calcium 8.6 mg/dl (8.5-10.1); Creatinine Clr Calc Pharmacy 71.7 ml/min; Est GFR (African American) 106.8; Est GFR (Non-African American) 92.2; Potassium 3.4 mmol/L (3.5-5.1)
--- NOTE | 2019-08-07 06:50 | Hospitalist Progress Note ---
Date of Service August 07, 2019 Assessment & Plan (1) Lower GI bleed: (2) Current use of anticoagulant therapy: This is a 78yo F with a PMH of PVD with recent R Axillary-Femoral and Femoral- tibioperoneal trunk prosthetic bypass on 07/13/19, CAD (s/p stent in s), HTN, HLD and other medical problems listed below who presents with rectal bleeding since this morning. -Underwent vascular surgery approximately 3 weeks ago with some intermittent constipation following procedure -Yesterday into today, patient had 4-5 bouts of diarrhea mixed with bright red blood. No clots or melena. No nausea, vomiting or abdominal pain -Most recent colonoscopy on record is from Mar 2018 with diverticulosis in the sigmoid colon and internal hemorrhoids -Afebrile, no leukocytosis, hgb stable at 13.7. Bright red blood on rectal exam performed by ED provider -Last took Xarelto and aspirin last night -Colonoscopy today (3) PVD (peripheral vascular disease): Recent R Axillary-Femoral and Femoral-tibioperoneal trunk prosthetic bypass on 07/13/19, h/o L AKA in 2015 -Continue statin. Holding Xarelto and aspirin for procedure (4) CAD (coronary artery disease): H/o coronary stent in s -Continue statin, holding aspirin with acute rectal bleeding -Follows with [facility] [place] cardiology (5) HTN (hypertension): Continue metoprolol tartrate, amlodipine, and lasix (6) Leg wound, right: H/o ischemic RLE wound on LLE, s/p 10 day course of Cipro completed 08/06 -No evidence of infection. Wound care consulted DVT Ppx: Holding Xarelto and aspirin today due to planned colonoscopy today Code status: DNR per discussion with patient PCP: Dr Bermudez Dispo: Observation med tele Labs checked ROS-No Headache, No Visual Changes, No Nausea, No Vomiting, No Fever, No Chills, No Neck Pain or Stiffness, No Chest Pain, No Palpitations, No SOB, No ALEXANDER, No Cough, No Sputum, No Wheezing, No Abdominal Pain, No Diarrhea, No Hematemesis, No Hemoptysis, No Unexpected Weight Loss, No Flank pain, No Melena, No Hematochezia, No Frequency, No Urgency, No Burning, No Hematuria, No Rashes, No Diaphoresis. Appetite is Normal, Bleeding stopped Physical Exam Gen-AAO x 3, NAD, Afebrile Head-NCAT, EOMI, PERRLA, Anicteric Sclera, No Posterior Pharyngeal Erythema Neck-Supple, No JVD, No Thyromegaly, No Masses, No LAD, No Bruits Lungs-Clear to Auscultation Bilaterally, No Rales, No Rhonchi, No Wheezing, No Crepitus Chest-No S4, +S1, +S2, No S3, No Murmurs, No Rubs, No Gallops, No Ectopy Abdomen-Soft, Bowel Sounds Present, Non Tender, Non Distended, No Hepatomegaly, No Splenomegaly, No Palpable Masses, No Rebound, No Rigidity, No Guarding Musculoskeletal-Full Range of Motion Bilaterally, No CVAT Extremities-No Cyanosis, No Clubbing, No Edema Nuero-Cranial Nerves II-XII grossly intact, Motor WNL, DTRs WNL, Strength WNL, Non Focal Psych-Normal Mood Results & Data ([facility]) Vital Signs (Past 12 Hours) Vital Signs Temp Pulse Pulse Resp BP Pulse Ox 08/07/19 04:25 36.6 C 78 18 116/64 92 08/07/19 01:31 92 H 08/07/19 00:02 36.6 C 81 20 110/67 90 08/06/19 19:48 36.6 C 112 H 20 110/64 97
--- NOTE | 2019-08-07 08:46 | Gastrointestinal Consultation ---
Date of Consultation August 07, 2019 Assessment & Plan (1) Lower GI bleed: 78 year old female with reported constipation since starting OP narcotic analgesia w/ 3/4 episodes of painless rectal bleeding following straining to have BM on Wednesday - she is prepped for a colonoscopy, denies any further episodes of BRB. Her HGB this am 11.7 without BUN elevation, denies any melena or UGI symptoms NPO Colonoscopy today Please see report of colonoscopy once completed for additional findings, recommednations and plans. Thank you for allowing us to participate in the care of this patient. Please call with any acute changes, questions or concerns. Please see addendum below with additional recommendation from my supervising physician. Present on Admission?: Yes Supervising Physician Co-Signing Physician Notes I have seen and examined the patient and discussed the management with HUEY Mcclendon. She was on the commode this morning during the interview. PE - mentating fine, cn's 2-12 intact, no rashes noted, moving all extremities, no wheezing noted Labs and imaging and prior colonsocopy in 2018 reviewed. Recent Xarelto and vascular surgery and straining- colonoscopy to assess for self limited rectal bleed. Diff - diverticular vs hemorrhoids given straining with her bowel movements with recent narcotic use post op. Last Xarelto dose was on Wednesday. History of Present Illness Reason for Consultation: rectal bleed Requesting Physician: Radha Attending Physician: Lorenzo Garcia DO History of Present Illness 78 year old female w/ history of PVD with recent R Axillary-Femoral and Femoral- tibioperoneal trunk prosthetic bypass on 07/13/19, CAD (s/p stent in 90s), HTN, HLD and others below who was admitted following episodes of rectal bleeding that started on Wednesday - pt was seen and evaluated, chart reviewed. Notes she has been on OP narcotic analgesia following vascular surgery procedure. Suggests this has made her quite constipated. On Wednesday, excessive straining for BM and notes she was very bound up, passed brown stool w/ BRB in the toilet bowl water and on the toilet tissue. Has difficulty with recall but suggests he had 2/3 esisodse of rectal bleeding since onset. Was subsequently admitted. Started go- lytely prep for colonoscopy. Has not had any further episodes of BRB since prep started. Slight drop in HGB to 11.7 No BUN elevation Last dose of Xarelto was Wednesday Colonoscopy in 2018 w/ diverticula, hemorrhiods Allergies Allergy/AdvReac Type Severity Reaction Status Date / Time diphenhydramine AdvReac Unknown MAKES Verified 08/06/19 09:42 HEART RACE Home Medications Home Medications Medication Instructions Recorded Confirmed Type Calcium 600 + D(3) 1 tab PO QAM 03/24/18 08/06/19 History amlodipine [Norvasc] 10 mg PO QAM 03/24/18 08/06/19 History atorvastatin [Lipitor] 40 mg PO HS 03/24/18 08/06/19 History metoprolol tartrate [Lopressor] 50 mg PO BID 03/24/18 08/06/19 History multivitamin 1 tab PO QAM 03/24/18 08/06/19 History omega 7-int-nky-fish oil [Fish Oil] 1 tab PO QAM 03/24/18 08/06/19 History potassium chloride [K-Tab] 20 meq PO BID 03/24/18 08/06/19 History cilostazol 100 mg tablet 100 mg PO BID #60 tab 02/23/19 08/06/19 Rx nitroglycerin 0.4 mg sublingual 0.4 mg SUBLINGUAL Q5M PRN tab 02/23/19 08/06/19 History tablet aspirin 81 mg tablet,delayed 81 mg PO QAM 06/05/19 08/06/19 History release docusate sodium [Colace] 100 mg PO BID #60 cap 07/18/19 08/06/19 Rx collagenase clostridium histo. 1 applic TOPICAL DAILY 08/06/19 08/06/19 History [Santyl] furosemide [Lasix] 40 mg PO BID 08/06/19 08/06/19 History oxycodone-acetaminophen [Percocet] 1 - 2 tab PO HS PRN 08/06/19 08/06/19 History rivaroxaban [Xarelto] 20 mg PO HS 08/06/19 08/06/19 History Patient History Medical History CAD (coronary artery disease) Hyperlipidemia Hypertension Osteoarthritis Peripheral vascular disease Surgical History H/O breast surgery X 2-BENIGN History of above knee amputation LEFT-08/2015-DOES NOT WEAR PROSTHESIS History of appendectomy History of below knee amputation LEFT History of bilateral tubal ligation History of cardiac cath 1 STENT-15 YRS AGO Previous back surgery BONE SPUR REMOVED Family History Son Family history of diabetes mellitus Social History Preferred Language: Indonesian Communication Ability: Effective Celluloid Trimmer Required: No Beliefs That Will Affect Care: None marital status: Current Living Situation: Spouse Current Living Situation Comment: SPOUSE Other Information That Helps Us Care for You: No Feels Safe at Home: Yes Safety Concerns: Feels Safe At This Time Smoking Status: Former smoker Tobacco Type: cigarettes ; Smoking End Date: +15 years ago ; Second Hand Exposure: No ; Hx Alcohol Use: Yes Alcohol type: beer Hx Substance Use: No Review of Systems Constitutional: no fever, no chills and no fatigue Respiratory: no cough, no dyspnea and no wheezing Cardiovascular: no chest pain, no radiating jaw, neck or arm pain and no dyspnea on exertion Gastrointestinal: no abdominal pain, no belching, no blood in stools and no melena Physical Exam Constitutional: WD/WN, vitals as above Neck: trachea midline Respiratory: normal respiratory effort, lungs clear to auscultation Cardiovascular: Rate/Rhythm: regular rate and regular rhythm Gastrointestinal (Abdomen): normal bowel sounds, soft, nontender, no hepatosplenomegaly Results & Data ([facility]) Vital Signs (Past 12 Hours) Vital Signs Temp Pulse Pulse Resp BP Pulse Ox 08/07/19 07:32 36.3 C L 67 18 138/80 90 08/07/19 04:25 36.6 C 78 18 116/64 92 08/07/19 01:31 92 H 08/07/19 00:02 36.6 C 81 20 110/67 90 Laboratory Results 08/07/19 08/07/19 08/06/19 Range/Units 05:26 05:26 23:50 WBC 6.58 (4.8-10.8) K/uL RBC 3.75 L (4.2-5.4) M/uL Hgb 11.7 L 12.0 (12.0-16.0) g/dL Hct 34.8 L 37.0 (37-47) % MCV 92.8 (80-100) fL MCH 31.2 (25-34) pg MCHC 33.6 (32-36) g/dL RDW Std Deviation 49.9 H (36.4-46.3) fL RDW Coeff of Jean 14.7 H (11.5-14.5) % Plt Count 281 (130-400) K/uL MPV 9.3 (7.4-10.4) fL Immature Gran % (Auto) % Neut % (Auto) % Lymph % (Auto) % [place] % (Auto) % Eos % (Auto) % Baso % (Auto) % Immature Gran # (Auto) (0.00-0.02) K/uL Neut # (Auto) (1.4-6.5) K/uL Lymph # (Auto) (1.2-3.4) K/uL [place] # (Auto) (0.11-0.59) K/uL Eos # (Auto) (0-0.5) K/uL Baso # (Auto) (0-0.2) K/uL PT (9.0-12.0) Seconds INR (0.9-1.1) APTT (21.0-31.0) Seconds PTT Ratio Sodium 139 (136-145) mmol/L Potassium 3.4 L (3.5-5.1) mmol/L Chloride 107 (98-107) mmol/L Carbon Dioxide 24 (21-32) mmol/L Anion Gap 8.0 (3-11) BUN 6 L (7-18) mg/dl Creatinine 0.52 L (0.6-1.2) mg/dl Est Cr Clr Drug Dosing 71.7 ml/min Est GFR ( Amer) 106.8 Est GFR (Non-Af Amer) 92.2 BUN/Creatinine Ratio 12.2 (10-20) Glucose 117 H (70-99) mg/dl Calcium 8.6 (8.5-10.1) mg/dl Magnesium (1.8-2.4) mg/dl Blood Type Antibody Screen 08/06/19 08/06/19 08/06/19 Range/Units 17:48 12:13 08:56 WBC (4.8-10.8) K/uL RBC (4.2-5.4) M/uL Hgb 12.0 12.6 (12.0-16.0) g/dL Hct 36.3 L 38.4 (37-47) % MCV (80-100) fL MCH (25-34) pg MCHC (32-36) g/dL RDW Std Deviation (36.4-46.3) fL RDW Coeff of Jean (11.5-14.5) % Plt Count (130-400) K/uL MPV (7.4-10.4) fL Immature Gran % (Auto) % Neut % (Auto) % Lymph % (Auto) % [place] % (Auto) % Eos % (Auto) % Baso % (Auto) % Immature Gran # (Auto) (0.00-0.02) K/uL Neut # (Auto) (1.4-6.5) K/uL Lymph # (Auto) (1.2-3.4) K/uL [place] # (Auto) (0.11-0.59) K/uL Eos # (Auto) (0-0.5) K/uL Baso # (Auto) (0-0.2) K/uL PT (9.0-12.0) Seconds INR (0.9-1.1) APTT (21.0-31.0) Seconds PTT Ratio Sodium 135 L (136-145) mmol/L Potassium 3.5 (3.5-5.1) mmol/L Chloride 100 (98-107) mmol/L Carbon Dioxide 25 (21-32) mmol/L Anion Gap 10.0 (3-11) BUN 10 (7-18) mg/dl Creatinine 0.72 (0.6-1.2) mg/dl Est Cr Clr Drug Dosing 51.8 ml/min Est GFR ( Amer) 93.6 Est GFR (Non-Af Amer) 80.8 BUN/Creatinine Ratio 13.8 (10-20) Glucose 128 H (70-99) mg/dl Calcium 9.5 (8.5-10.1) mg/dl Magnesium 1.9 (1.8-2.4) mg/dl Blood Type Antibody Screen 08/06/19 08/06/19 08/06/19 Range/Units 08:56 08:56 08:56 WBC 11.15 H (4.8-10.8) K/uL RBC 4.35 (4.2-5.4) M/uL Hgb 13.7 (12.0-16.0) g/dL Hct 40.4 (37-47) % MCV 92.9 (80-100) fL MCH 31.5 (25-34) pg MCHC 33.9 (32-36) g/dL RDW Std Deviation 49.4 H (36.4-46.3) fL RDW Coeff of Jean 14.6 H (11.5-14.5) % Plt Count 381 (130-400) K/uL MPV 9.6 (7.4-10.4) fL Immature Gran % (Auto) 0.2 % Neut % (Auto) 83.2 % Lymph % (Auto) 7.8 % [place] % (Auto) 8.0 % Eos % (Auto) 0.4 % Baso % (Auto) 0.4 % Immature Gran # (Auto) 0.02 (0.00-0.02) K/uL Neut # (Auto) 9.27 H (1.4-6.5) K/uL Lymph # (Auto) 0.87 L (1.2-3.4) K/uL [place] # (Auto) 0.89 H (0.11-0.59) K/uL Eos # (Auto) 0.05 (0-0.5) K/uL Baso # (Auto) 0.05 (0-0.2) K/uL PT 14.5 H (9.0-12.0) Seconds INR 1.5 H (0.9-1.1) APTT 37.4 H (21.0-31.0) Seconds PTT Ratio 1.4 Sodium (136-145) mmol/L Potassium (3.5-5.1) mmol/L Chloride (98-107) mmol/L Carbon Dioxide (21-32) mmol/L Anion Gap (3-11) BUN (7-18) mg/dl Creatinine (0.6-1.2) mg/dl Est Cr Clr Drug Dosing ml/min Est GFR ( Amer) Est GFR (Non-Af Amer) BUN/Creatinine Ratio (10-20) Glucose (70-99) mg/dl Calcium (8.5-10.1) mg/dl Magnesium (1.8-2.4) mg/dl Blood Type A Positive Antibody Screen NEGATIVE
[2019-08-07] MEDS ORDERED: CALCIUM 600MG + VIT D 400 IU TAB PO SCH (09:00)
[2019-08-07] MEDS ORDERED: MULTIVITAMIN TAB PO SCH (09:00)
[2019-08-07] MEDS ORDERED: AMLODIPINE BESYLATE 5 MG TAB PO SCH (09:00)
[2019-08-07] MEDS: COLLAGENASE OINT 30 GM TUBE TOP SCH (09:28)
[2019-08-07] MEDS: FUROSEMIDE 40 MG TAB PO SCH (09:28)
[2019-08-07] MEDS: METOPROLOL TARTRATE 50 MG TAB PO SCH (09:28)
[2019-08-07] MEDS: POTASSIUM CHLORIDE 20 MEQ TABCR PO SCH (09:28)
--- NOTE | 2019-08-07 09:55 | Emergency Department Note ---
Entered by Amy Traore acting as a scribe for Cameron Schulz MD ED Provider Note Name: PONCHO DOLAN Age: 78 Arrives Via: Walk-In Informant: Patient CC: Rectal bleeding. HPI: [id number] arrives for evaluation of constant rectal bleeding which started yesterday. The patient states that she was constipated and took Dulcolax which alleviated her symptoms. She reports that she had normal bowel movement, but developed blood in her stools. She notes that she recently had surgery of her right lower extremity by Dr. Bolanos- [facility], and was placed on Xarelto. She denies any nausea, vomiting, abdominal pain, or syncopal episodes. The patient mentions that she had a recent blood transfusion in June. ROS: See above HPI for pertinent positives & negatives. A total of 10 systems reviewed and were otherwise negative. Past Medical History:CAD, HLD, HTN, AAA, PVD, PAC, Past Surgical History:CAD Stent, Appendectomy, tubal ligation, fem-pop bypass Family History:Son with DMII Social History:Lives with , retired, smoker, see below Home Medications:See Below Allergies:Diphenhydramine Vitals: Blood Pressure 116/68, Pulse 72, Resp 20, T 37C, O2 96% on RA Physical Exam: GENERAL: Patient is well appearing and in minimal distress. EYES: No scleral icterus, unremarkable pupils. ENT: Mucous membranes moist, no nasal congestion. NECK: No masses appreciated, nomeningismus, trachea is midline. RESPIRATORY: No dyspnea. Clear to auscultation and equal bilaterally. No wheeze, no rhonchi. CARDIOVASCULAR: Regular rate and rhythm.No murmurs, rubs, gallops appreciated. GASTROINTESTINAL: Abdomen soft, non-tender, no peritonitis.Bowel sounds posit marialuisa.No masses appreciated. BACK: No midline tenderness, no CVA tenderness RECTAL: Bloody brown stool, no sign of hemorrhage or laceration appreciated. EXTREMITIES: Left lower extremity amputation. Right leg bruising and rajendra over medial side, mild edema. NEUROLOGIC: Alert and oriented, no acute motor or sensory deficits, no focal weakness, cranial nerves grossly intact. SKIN: No rash, no jaundice, no diaphoresis. ED Course: Prior Medical Record, Triage/Nursing Notes, Medications, Allergies reviewed by Me Vital Signs: reviewed and remarkable for no significant abnormalities Labs:Reviewed and remarkable for no significant abnormalities Interventions: Saline Lock Consults: 0935: I reviewed the patient's case with Dr. Clarke Madison Hospitalist. He will evaluate the patient for further management. Reassessments/Times: 0850: The patient was evaluated in room A4B, and a complete history and physical examination were performed. 0945: I reevaluated the patient and updated her on her results. She is feeling better and agreed to hospitalist evaluation. Blood pressure:Normal.No Referral necessary Disposition:Further evaluated by Hospitalist. Condition: Good. Prescriptions:None Differential: Diverticulitis, AVM, Coagulopathy, Colitis, Malignancy, Upper GI bleed, Fissure, Hemorrhoids, amongst other pathologies entertained. Medical Decision Makin yr old female with extensive atherosclerosis history on anticoagulation arrives with bright red rectal bleeding. Significant amount of bloody stool on examination. Stool itself is not black and I suspect this is lower GI bleed but I do not appreciated evidence of external hemorrhoid as cause. Do not see indicated for emergent acid suppression nor transfusion at this time. Vitals looks good and Hgb OK. Patient high risk however and on anticoagulation that is essentially non-reversible. Reviewed with hospitalist who will evaluate further. Impression: Lower GI bleed Anticoagulant use The scribe's documentation has been prepared under my direction and personally reviewed by me in its entirety. I confirm that the note above accurately reflects all work, treatment, procedures, and medical decision making performed by me. Cameron Schulz MD Impression & Plan Lower GI bleed, Current use of anticoagulant therapy Past Med/Surg History Medical History CAD (coronary artery disease) Hyperlipidemia Hypertension Osteoarthritis Peripheral vascular disease Surgical History H/O breast surgery X 2-BENIGN History of above knee amputation LEFT-08/2015-DOES NOT WEAR PROSTHESIS History of appendectomy History of below knee amputation LEFT History of bilateral tubal ligation History of cardiac cath 1 STENT-15 YRS AGO Previous back surgery BONE SPUR REMOVED Family History Son Family history of diabetes mellitus Social History Preferred Language: Iranian Communication Ability: Effective 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 Beliefs That Will Affect Care: None marital status: Current Living Situation: Spouse Current Living Situation Comment: SPOUSE Other Information That Helps Us Care for You: No Feels Safe at Home: Yes Safety Concerns: Feels Safe At This Time Smoking Status: Former smoker Tobacco Type: cigarettes ; Smoking End Date: +15 years ago ; Second Hand Exposure: No ; Hx Alcohol Use: Yes Alcohol type: beer Hx Substance Use: No Results & Data Vital Signs Vital Signs - 24 hr 08/06/19 10:00 08/06/19 10:30 Pulse Rate 88 96 H Pulse Rate from SpO2 Sensor 81 77 Respiratory Rate 18 18 Blood Pressure 114/81 123/64 Blood Pressure Mean 102 95 Pulse Oximetry 93 90 Home Medications Current Medication List: was personally reviewed by me Laboratory Data Attestation: I reviewed the patient's lab results. Result diagrams: 08/07/19 05:26 08/07/19 05:26 Lab Results 08/06/19 08/06/19 08/06/19 Range/Units 08:56 08:56 08:56 WBC 11.15 H (4.8-10.8) K/uL RBC 4.35 (4.2-5.4) M/uL Hgb 13.7 (12.0-16.0) g/dL Hct 40.4 (37-47) % MCV 92.9 (80-100) fL MCH 31.5 (25-34) pg MCHC 33.9 (32-36) g/dL RDW Std Deviation 49.4 H (36.4-46.3) fL RDW Coeff of Jean 14.6 H (11.5-14.5) % Plt Count 381 (130-400) K/uL MPV 9.6 (7.4-10.4) fL Immature Gran % (Auto) 0.2 % Neut % (Auto) 83.2 % Lymph % (Auto) 7.8 % [place] % (Auto) 8.0 % Eos % (Auto) 0.4 % Baso % (Auto) 0.4 % Immature Gran # (Auto) 0.02 (0.00-0.02) K/uL Neut # (Auto) 9.27 H (1.4-6.5) K/uL Lymph # (Auto) 0.87 L (1.2-3.4) K/uL [place] # (Auto) 0.89 H (0.11-0.59) K/uL Eos # (Auto) 0.05 (0-0.5) K/uL Baso # (Auto) 0.05 (0-0.2) K/uL PT 14.5 H (9.0-12.0) Seconds INR 1.5 H (0.9-1.1) APTT 37.4 H (21.0-31.0) Seconds PTT Ratio 1.4 Sodium (136-145) mmol/L Potassium (3.5-5.1) mmol/L Chloride (98-107) mmol/L Carbon Dioxide (21-32) mmol/L Anion Gap (3-11) BUN (7-18) mg/dl Creatinine (0.6-1.2) mg/dl Est Cr Clr Drug Dosing ml/min Est GFR ( Amer) Est GFR (Non-Af Amer) BUN/Creatinine Ratio (10-20) Glucose (70-99) mg/dl Calcium (8.5-10.1) mg/dl Magnesium (1.8-2.4) mg/dl Blood Type A Positive Antibody Screen NEGATIVE 08/06/19 Range/Units 08:56 WBC (4.8-10.8) K/uL RBC (4.2-5.4) M/uL Hgb (12.0-16.0) g/dL Hct (37-47) % MCV (80-100) fL MCH (25-34) pg MCHC (32-36) g/dL RDW Std Deviation (36.4-46.3) fL RDW Coeff of Jean (11.5-14.5) % Plt Count (130-400) K/uL MPV (7.4-10.4) fL Immature Gran % (Auto) % Neut % (Auto) % Lymph % (Auto) % [place] % (Auto) % Eos % (Auto) % Baso % (Auto) % Immature Gran # (Auto) (0.00-0.02) K/uL Neut # (Auto) (1.4-6.5) K/uL Lymph # (Auto) (1.2-3.4) K/uL [place] # (Auto) (0.11-0.59) K/uL Eos # (Auto) (0-0.5) K/uL Baso # (Auto) (0-0.2) K/uL PT (9.0-12.0) Seconds INR (0.9-1.1) APTT (21.0-31.0) Seconds PTT Ratio Sodium 135 L (136-145) mmol/L Potassium 3.5 (3.5-5.1) mmol/L Chloride 100 (98-107) mmol/L Carbon Dioxide 25 (21-32) mmol/L Anion Gap 10.0 (3-11) BUN 10 (7-18) mg/dl Creatinine 0.72 (0.6-1.2) mg/dl Est Cr Clr Drug Dosing 51.8 ml/min Est GFR ( Amer) 93.6 Est GFR (Non-Af Amer) 80.8 BUN/Creatinine Ratio 13.8 (10-20) Glucose 128 H (70-99) mg/dl Calcium 9.5 (8.5-10.1) mg/dl Magnesium 1.9 (1.8-2.4) mg/dl Blood Type Antibody Screen Administered Medications Amlodipine Besylate (Norvasc) 10 mg PO QAM RAYMOND Stop: 09/06/19 08:59 Last Admin: 08/07/19 09:28 Dose: 10 mg Documented by: [id number] Atorvastatin Calcium (Lipitor) 40 mg PO HS RAYMOND Stop: 09/05/19 20:59 Last Admin: 08/06/19 21:11 Dose: 40 mg Documented by: [id number] Collagenase (Santyl) 1 appln TOP BID RAYMOND Stop: 09/05/19 20:59 Last Admin: 08/07/19 09:28 Dose: 1 appln Documented by: [id number] Admin: 08/06/19 21:11 Dose: 1 appln Documented by: [id number] Furosemide (Lasix) 40 mg PO [id number] [facility] Stop: 09/05/19 16:59 Last Admin: 08/07/19 09:28 Dose: 40 mg Documented by: [id number] Admin: 08/06/19 16:35 Dose: 40 mg Documented by: [id number] Metoprolol Tartrate (Lopressor) 50 mg PO BID RAYMOND Stop: 09/05/19 20:59 Last Admin: 08/07/19 09:28 Dose: 50 mg Documented by: [id number] Admin: 08/06/19 21:11 Dose: 50 mg Documented by: [id number] Multivitamins (Multivitamin Tab) 1 tab PO QAM RAYMOND Stop: 09/06/19 08:59 Last Admin: 08/07/19 09:28 Dose: 1 tab Documented by: [id number] Multivitamins/Minerals (Caltrate Plus) 1 tab PO QAM RAYMOND Stop: 09/06/19 08:59 Last Admin: 08/07/19 09:28 Dose: 1 tab Documented by: [id number] Polyethylene Glycol/Electrolytes (Golytely) 8 dose PO TODAY@,18 RAYMOND Stop: 08/07/19 10:00 Last Admin: 08/07/19 05:51 Dose: 8 dose Documented by: [id number] Admin: 08/06/19 18:40 Dose: 8 dose Documented by: [id number] Potassium Chloride (Klor-Con M20) 20 meq PO BID RAYMOND Stop: 09/05/19 20:59 Last Admin: 08/07/19 09:28 Dose: 20 meq Documented by: [id number] Admin: 08/06/19 21:10 Dose: 20 meq Documented by: [id number] Discontinued Medications Collagenase (Santyl) 1 appln TOP DAILY RAYMOND Stop: 09/05/19 13:14 Last Admin: 08/06/19 14:05 Dose: Not Given Documented by: [id number] Blood Pressure Blood Pressure Findings: Low blood pressure Blood Pressure Disposition: did not require urgent referral Discharge Plan Visit Data *Final* Discharge Date/Time: 08/06/19 12:08 Chief Complaint: Rectal Bleed Stated Complaint: RECTAL BLEEDING ED Provider: Cameron Schulz Discharge Problem: Lower GI bleed, Current use of anticoagulant therapy Patient Disposition: Admitted As Inpatient Discharge Instructions Interventions: ED Discharge Assessment Last Done: 08/06/19 12:08 The scribe's documentation has been prepared under my direction and personally reviewed by me in its entirety. I confirm that the note above accurately reflects all work, treatment, procedures, and medical decision making performed by me.
[2019-08-07] MEDS ORDERED: PROPOFOL IV EMULSION 10 MG/ML 20 ML VIAL IV ONE ×2 (10:51)
[2019-08-07] MEDS ORDERED: LIDOCAINE HCL 2% 2 ML VIAL/AMP(20MG/ML) INFIL ONE (10:51)
--- NOTE | 2019-08-07 13:03 | Anesthesiology Consultation ---
Date of Service August 07, 2019 Assessment & Plan (1) Encounter for pre-operative examination: Chart Review Chart Review: Acceptable Risk for Surgery History Surgery Operation Date: 08/07/19 16:00 Proposed Procedures p Colonoscopy Dr. Flaca Thayer M.D. Height/Weight Height: 5 ft 2 in Weight: 59.1 kg Allergies Allergy/AdvReac Type Severity Reaction Status Date / Time diphenhydramine AdvReac Unknown MAKES Verified 08/06/19 09:42 HEART RACE Medications Home Medications Medication Instructions Recorded Confirmed Last Taken Calcium 600 + D(3) 1 tab PO QAM 03/24/18 08/06/19 08/06/19 amlodipine [Norvasc] 10 mg PO QAM 03/24/18 08/06/19 08/06/19 atorvastatin [Lipitor] 40 mg PO HS 03/24/18 08/06/19 08/05/19 metoprolol tartrate [Lopressor] 50 mg PO BID 03/24/18 08/06/19 08/06/19 multivitamin 1 tab PO QAM 03/24/18 08/06/19 08/06/19 omega 1-shw-upm-fish oil [Fish Oil] 1 tab PO QAM 03/24/18 08/06/19 08/06/19 potassium chloride [K-Tab] 20 meq PO BID 03/24/18 08/06/19 08/06/19 cilostazol 100 mg tablet 100 mg PO BID #60 tab 02/23/19 08/06/19 08/06/19 nitroglycerin 0.4 mg sublingual 0.4 mg SUBLINGUAL Q5M PRN tab 02/23/19 08/06/19 Unknown tablet aspirin 81 mg tablet,delayed 81 mg PO QAM 06/05/19 08/06/19 08/06/19 release docusate sodium [Colace] 100 mg PO BID #60 cap 07/18/19 08/06/19 08/06/19 collagenase clostridium histo. 1 applic TOPICAL DAILY 08/06/19 08/06/19 Unknown [Santyl] furosemide [Lasix] 40 mg PO BID 08/06/19 08/06/19 08/06/19 oxycodone-acetaminophen [Percocet] 1 - 2 tab PO HS PRN 08/06/19 08/06/19 08/05/19 rivaroxaban [Xarelto] 20 mg PO HS 08/06/19 08/06/19 08/05/19 Active Medications Generic Name Dose Route Start Last Admin Trade Name Radha PRN Reason Stop Dose Admin Amlodipine Besylate 10 mg 08/07/19 09:00 08/07/19 09:28 Norvasc PO 09/06/19 08:59 10 mg QAM RAYMOND Administration Atorvastatin Calcium 40 mg 08/06/19 21:00 08/06/19 21:11 Lipitor PO 09/05/19 20:59 40 mg HS RAYMOND Administration Collagenase 1 appln 08/06/19 21:00 08/07/19 09:28 Santyl TOP 09/05/19 20:59 1 appln BID RAYMOND Administration Furosemide 40 mg 08/06/19 17:00 08/07/19 09:28 Lasix PO 09/05/19 16:59 40 mg [id number] RAYMOND Administration Metoprolol Tartrate 50 mg 08/06/19 21:00 08/07/19 09:28 Lopressor PO 09/05/19 20:59 50 mg BID RAYMOND Administration Multivitamins 1 tab 08/07/19 09:00 08/07/19 09:28 Multivitamin Tab PO 09/06/19 08:59 1 tab QAM RAYMOND Administration Multivitamins/Minerals 1 tab 08/07/19 09:00 08/07/19 09:28 Caltrate Plus PO 09/06/19 08:59 1 tab QAM RAYMOND Administration Potassium Chloride 20 meq 08/06/19 21:00 08/07/19 09:28 Klor-Con M20 PO 09/05/19 20:59 20 meq BID RAYMOND Administration Past Medical History Medical History (Updated 08/07/19 @ 13:02 by Renato Koo MD) Anemia CAD (coronary artery disease) Hyperlipidemia Hypertension Lower GI bleed (Acute) Osteoarthritis Peripheral vascular disease Past Family History Family History Son Family history of diabetes mellitus Past Surgical History Surgical History (Updated 08/07/19 @ 13:01 by Renato Koo MD) H/O breast surgery X 2-BENIGN History of above knee amputation LEFT-08/2015-DOES NOT WEAR PROSTHESIS History of appendectomy History of below knee amputation LEFT History of bilateral tubal ligation History of cardiac cath 1 STENT-15 YRS AGO Hx of arterial bypass of lower limb Previous back surgery BONE SPUR REMOVED Social History Smoking Status: Former smoker tobacco type: cigarettes Smoking End Date: +15 years ago Hx Alcohol Use: Yes Alcohol type: beer alcohol intake frequency: 0-2 drinks per day Hx Substance Use: No substance use type: does not use Physical Exam Vital Signs Last Vital Signs Temp 36.4 C L 08/07/19 11:33 Pulse 93 H 08/07/19 11:33 Resp 18 08/07/19 11:33 BP 157/85 H 08/07/19 11:33 Pulse Ox 94 08/07/19 11:33 Testing Laboratory Results 08/07/19 05:26 08/07/19 05:26 PT 14.5 Seconds (9.0-12.0) H 08/06/19 08:56 INR 1.5 (0.9-1.1) H 08/06/19 08:56 APTT 37.4 Seconds (21.0-31.0) H 08/06/19 08:56 Blood Type A Positive 08/06/19 08:56 Antibody Screen NEGATIVE 08/06/19 08:56
--- NOTE | 2019-08-07 13:46 | GI REPORT ---
Patient Name: Dory Florian Procedure Date: 08/07/2019 1:26 PM Date of : 1940 Admit Type: Inpatient Age: 78 Gender: Female Attending MD: Amaris Thayer M.d. Procedure: Colonoscopy Providers: Amaris Thayer M.d. Referring MD: Amaris Thayer M.d. Indications: Hematochezia Medicines: Propofol per Anesthesia, Lidocaine Complications: No immediate complications. Estimated Blood Loss: Estimated blood loss: none. Procedure: Pre-Anesthesia Assessment: - Patient identification and proposed procedure were verified prior to the procedure by the physician, the nurse and the anesthesiologist. The procedure was verified in the pre-procedure area. - Prior to the procedure, a History and Physical was performed, and patient medications, allergies and sensitivities were reviewed. The patient's tolerance of previous anesthesia was reviewed. - The risks and benefits of the procedure and the sedation options and risks were discussed with the patient. All questions were answered and informed consent was obtained. - ASA Grade Assessment: III - A patient with severe systemic disease. After I obtained informed consent, the scope was passed under direct vision. Throughout the procedure, the patient's blood pressure, pulse, and oxygen saturations were monitored continuously. The scope was introduced through the anus and advanced to the cecum, identified by appendiceal orifice and ileocecal valve. The colonoscopy was somewhat difficult due to the patient's agitation. Successful completion of the procedure was aided by using manual pressure, straightening and shortening the scope to obtain bowel loop reduction and lavage. The patient tolerated the procedure well. The quality of the bowel preparation was adequate to identify polyps 6 mm and larger in size. Findings: The examined colon appeared normal. Scattered small-mouthed diverticula were found in the sigmoid colon. Internal and external hemorrhoids were found during retroflexion and during perianal exam. Impression: - The examined colon appeared normal. - Limited sigmoid diverticulosis. - internal and external hemorrhoids. Recommendation: - Return to the floor when ready. - Suspect her bleeding was outlet in origin. Aiden Patterson M.d. 08/07/2019 1:45:20 PM This report has been signed electronically. Note Initiated On: 08/07/2019 1:26 PM Number of Addenda: 0 I attest to the content of the Intraoperative Record and orders documented therein, exceptions below {[id number]}
--- NOTE | 2019-08-07 14:20 | Anesthesiology Progress Note ---
Date of Service August 07, 2019 Anesthesia Post Procedure Vital Signs Vital Signs: Temp Pulse Pulse Resp BP Pulse Ox 08/07/19 14:01 68 18 123/68 95 08/07/19 13:46 88 18 109/59 L 96 08/07/19 13:09 37.1 C 61 16 151/84 H 94 08/07/19 11:33 36.4 C L 93 H 18 157/85 H 94 08/07/19 08:00 72 08/07/19 07:32 36.3 C L 67 18 138/80 90 08/07/19 04:25 36.6 C 78 18 116/64 92 08/07/19 01:31 92 H 08/07/19 00:02 36.6 C 81 20 110/67 90 08/06/19 19:48 36.6 C 112 H 20 110/64 97 08/06/19 15:54 36.7 C 76 18 109/58 L 08/06/19 15:10 98 H Transfer of Care Handoff Completed per policy Notes Mental Status: alert / awake / arousable Patient Amnestic to Procedure: Yes Nausea / Vomiting: adequately controlled Pain: adequately controlled Airway Patency, RR, SpO2: stable & adequate BP & HR: stable & adequate Hydration State: stable & adequate Anesthetic Complications: no major complications apparent
--- NOTE | 2019-08-07 14:29 | Discharge Summary ---
Date of Service August 07, 2019 Admission HPI Per Admitting Provider This is a 78yo F with a PMH of PVD with recent R Axillary-Femoral and Femoral- tibioperoneal trunk prosthetic Bypass on 07/13/19, CAD (s/p stent in 90s), HTN, HLD and other medical problems listed below who presents with rectal bleeding since this morning. Underwent vascular surgery approximately 3 weeks ago and has been constipated intermittently following procedure. Has been taking oxycodone each night and had not had a bowel movement for 4 days. Yesterday into today, patient had 4-5 bouts of diarrhea mixed with bright red blood. No clots or melena. No nausea, vomiting or abdominal pain. Denies fever, chills, lightheadedness, visual changes, chest pain, palpitations or SOB. Denies history of GI bleeds. Most recent colonoscopy on record is from Mar 2018 with diverticulosis in the sigmoid colon and internal hemorrhoids. Admission Exam Per Admitting Provider Physical Exam Gen-AAO x 3, NAD, Afebrile Head-NCAT, EOMI, PERRLA, Anicteric Sclera, No Posterior Pharyngeal Erythema Neck-Supple, No JVD, No Thyromegaly, No Masses, No LAD, No Bruits Lungs-Clear to Auscultation Bilaterally, No Rales, No Rhonchi, No Wheezing, No Crepitus Chest-No S4, +S1, +S2, No S3, No Murmurs, No Rubs, No Gallops, No Ectopy Abdomen-Soft, Bowel Sounds Present, Non Tender, Non Distended, No Hepatomegaly, No Splenomegaly, No Palpable Masses, No Rebound, No Rigidity, No Guarding Musculoskeletal-Full Range of Motion Bilaterally, No CVAT Extremities-No Cyanosis, No Clubbing, No Edema Nuero-Cranial Nerves II-XII grossly intact, Motor WNL, DTRs WNL, Strength WNL, Non Focal Psych-Normal Mood Principal Diagnosis Lower GI Bleed Discharge Exam Physical Exam Gen-AAO x 3, NAD, Afebrile, Pleasant Head-NCAT, EOMI, PERRLA, Anicteric Sclera, No Posterior Pharyngeal Erythema Neck-Supple, No JVD, No Thyromegaly, No Masses, No LAD, No Bruits Lungs-Coarse BS L, L Pleurex catheter Chest-No S4, +S1, +S2, No S3, No Murmurs, No Rubs, No Gallops, No Ectopy Abdomen-Soft, Bowel Sounds Present, Non Tender, Non Distended, No Hepatomegaly, No Splenomegaly, No Palpable Masses, No Rebound, No Rigidity, No Guarding Musculoskeletal-Full Range of Motion Bilaterally, No CVAT Extremities-No Cyanosis, No Clubbing, No Edema Nuero-Cranial Nerves II-XII grossly intact, Motor WNL, DTRs WNL, Strength WNL, Non Focal Psych-Normal Mood Discharge Data Allergies Allergy/AdvReac Type Severity Reaction Status Date / Time diphenhydramine AdvReac Unknown MAKES Verified 08/06/19 09:42 HEART RACE Consultations 08/06/19 09:53 ED Decision to Admit Stat 08/06/19 11:54 Consult Gastroenterology Routine Procedures Performed Operation Date: 08/07/19 16:00 Actual Procedures p Colonoscopy(Not Applicable) - Amaris Thayer M.D. Current Diagnoses Essential (primary) hypertension (08/06/19) Atherosclerotic heart disease of [place] coronary artery without angina pectoris (08/06/19) Peripheral vascular disease, unspecified (08/06/19) Gastrointestinal hemorrhage, unspecified (08/06/19) Unspecified open wound, right lower leg, initial encounter (08/06/19) Encounter for other preprocedural examination (08/06/19) group home (current) use of anticoagulants (08/06/19) Allergies diphenhydramine Adverse Reaction (Unknown, Verified 08/06/19 09:42) MAKES HEART RACE Height/Weight/Isolation Height 5 ft 2 in Weight 59.1 kg Chemistry 08/06/19 08/07/19 08:56 05:26 Sodium 135 L 139 Potassium 3.5 3.4 L Chloride 100 107 Carbon Dioxide 25 24 Anion Gap 10.0 8.0 BUN 10 6 L Creatinine 0.72 0.52 L Glucose 128 H 117 H Hospital Course (1) Lower GI bleed: (2) Current use of anticoagulant therapy: This is a 78yo F with a PMH of PVD with recent R Axillary-Femoral and Femoral- tibioperoneal trunk prosthetic bypass on 07/13/19, CAD (s/p stent in 90s), HTN, HLD and other medical problems listed below who presents with rectal bleeding since this morning. -Underwent vascular surgery approximately 3 weeks ago with some intermittent constipation following procedure -Yesterday into today, patient had 4-5 bouts of diarrhea mixed with bright red blood. No clots or melena. No nausea, vomiting or abdominal pain -Most recent colonoscopy on record is from Mar 2018 with diverticulosis in the sigmoid colon and internal hemorrhoids -Afebrile, no leukocytosis, hgb stable at 13.7. Bright red blood on rectal exam performed by ED provider -Last took Xarelto and aspirin last night -Colonoscopy today was negative for bleed, likely outlet in origin (3) PVD (peripheral vascular disease): Recent R Axillary-Femoral and Femoral-tibioperoneal trunk prosthetic bypass on 07/13/19, h/o L AKA in 2016 -Continue statin. Continue Xarelto and aspirin (4) CAD (coronary artery disease): H/o coronary stent in s -Continue statin, holding aspirin with acute rectal bleeding -Follows with [facility] cardiology (5) HTN (hypertension): Continue metoprolol tartrate, amlodipine, and lasix (6) Leg wound, right: H/o ischemic RLE wound on LLE, s/p 10 day course of Cipro completed 08/06 -No evidence of infection. Wound care consulted DVT Ppx: Continue Xarelto and aspirin Code status: DNR per discussion with patient PCP: Dr Bermudez Dispo: [place] Home Total Time Total Time Spent Total Time Spent (In Minutes): 40 mins Total Time Includes: Examination of the Patient, Discharge Planning, Medication Reconciliation and Communication With Other Providers Discharge Plan Discharge Items Patient Disposition: Home - Self-Care Reason For Visit: RECTAL BLEED Discharge Diagnosis: Lower GI Outlet Bleed Condition on Discharge: Good Health Concerns: Rebleeding Activity: Resume your previous activity Lifting: Gradually increase as tolerated Bathing: No limitations Sexual Activity: When tolerated Exercise/Sports: Gradually increase as tolerated Driving/Machine Use: No limitations Weightbearing: Full weightbearing Non-emergency contact: Primary Care Provider and Specialist Call non-emergency contact if: you have any medication questions Follow-up/Referrals: Arturo Bermudez MD [Primary Care Provider] - Diet: Heart Healthy Addtl Attending Provider Instructions: Back on Xarelto and ASA, Check with vascular if it can be held if she rebleeds Pending Studies at Discharge: No Stand-Alone Forms: Neuravi, Smoking Cessation Medications and DC Order Prescriptions: Continued nitroglycerin [Nitrostat] 0.4 mg tablet, sublingual 0.4 mg Sublingual Q5M PRN (Reason: Chest Pain) RF: 0 cilostazol 100 mg tablet 100 mg PO BID Qty: 60 RF: 2 multivitamin Tablet 1 tab PO QAM RF: 0 atorvastatin [Lipitor] 40 mg Tablet 40 mg PO HS RF: 0 amlodipine [Norvasc] 10 mg Tablet 10 mg PO QAM RF: 0 metoprolol tartrate [Lopressor] 50 mg Tablet 50 mg PO BID RF: 0 Calcium 600 + D(3) 600 mg calcium- 200 unit Capsule 1 tab PO QAM RF: 0 omega 6-ofl-odp-fish oil [Fish Oil] 1,000 mg (120 mg-180 mg) Capsule 1 tab PO QAM RF: 0 potassium chloride [K-Tab] 20 mEq Tablet Extended Release 20 meq PO BID RF: 0 docusate sodium [Colace] 100 mg capsule 100 mg PO BID Qty: 60 RF: 0 furosemide [Lasix] 40 mg tablet 40 mg PO BID RF: 0 oxycodone-acetaminophen [Percocet] 5-325 mg tablet 1 - 2 tab PO HS PRN (Reason: Pain) RF: 0 Santyl 250 unit/gram ointment 1 applic TOPICAL DAILY RF: 0 aspirin 81 mg tablet,delayed release (DR/EC) 81 mg PO QAM Qty: 0 RF: 0 Xarelto 20 mg tablet 20 mg PO HS Qty: 0 RF: 0 Discharge Orders: Discharge Order (Routine); Ordered 08/07/19 Ordered By: Lorenzo Garcia Admission Data Admit Date/Time: 08/06/19 10:31 Attending Provider: Lorenzo Garcia Admit Provider: Lary Cole Primary Care Provider: Artruo Bermudez Other Providers: Lary Cole ; Joe Mac ; [facility] Other Interventions: Discharge Summary Assessment (RN) Last Done: 08/07/19 14:16
== END 2019-08-07 15:00 | disposition home health service (06) ==
LOC: ED 08:32 → 2N 08:32 → SUATTDRO 10:31 → 2N 12:08

== ENCOUNTER 2020-02-08 10:31 | Observation (INO) ==
--- NOTE | 2020-02-07 15:49 | Anesthesiology Consultation ---
Date of Service February 07, 2020 Assessment & Plan (1) Encounter for pre-operative examination: - Cardiology office visit: 09/11/19: "The patient is stable from a cardiovascular standpoint. She demonstrates excellent control of her blood pressure lipid values. Her coronary disease remains quiescent current medical regimen. No changes were made today." - S/P colonoscopy: 08/07/19: MAC sedation at [facility] - S/P Axillary-Femoral, Femoral-Peroneal Insitu Bypass: 07/13/2019: Grade view 2, MAC#3, ETT 7.0 at [facility] - Limited available information: Information obtained per available records. No PAT RN phone interview at time of chart review and case added on afternoon prior to DOS. Will need to evaluate patient AM DOS. - Awaiting BMP results (pending in [employer] from 02/06). Will need to be reviewed AM DOS. Will need to review travel hx/if COVID testing done preoperatively (none received at time of review). Will need to use rule if no COVID testing received. Patient otherwise acceptable risk for surgery pending evaluation AM DOS. Chart Review Chart Review: Patient NOT seen in Pre Admission Testing History Surgery Operation Date: 02/08/20 12:20 Proposed Procedures p Incision and Drainage with Debridement and Excision of Nonfunctioning [place]-Isaac Graft Left Inner Thigh - Duane Alexandre MD Height/Weight Height: 5 ft 2 in Weight: 59.1 kg Allergies Allergy/AdvReac Type Severity Reaction Status Date / Time diphenhydramine AdvReac Unknown heart Verified 02/07/20 15:32 racing Medications Home Medications Medication Instructions Recorded Confirmed Last Taken Calcium 600 + D(3) 1 tab PO QAM 03/24/18 02/07/20 08/06/19 amlodipine [Norvasc] 10 mg PO QAM 03/24/18 02/07/20 08/06/19 atorvastatin [Lipitor] 40 mg PO HS 03/24/18 02/07/20 08/05/19 metoprolol tartrate [Lopressor] 50 mg PO BID 03/24/18 02/07/20 08/06/19 multivitamin 1 tab PO QAM 03/24/18 02/07/20 08/06/19 omega 2-bvy-fyz-fish oil [Fish Oil] 1 tab PO QAM 0902/07/20 08/06/19 potassium chloride [K-Tab] 20 meq PO BID 03/24/18 02/07/20 08/06/19 cilostazol 100 mg tablet 100 mg PO BID #60 tab 02/23/19 02/07/20 08/06/19 nitroglycerin 0.4 mg sublingual 0.4 mg SUBLINGUAL Q5M PRN tab 02/23/19 02/07/20 Unknown tablet furosemide [Lasix] 40 mg PO BID 08/06/19 02/07/20 08/06/19 Xarelto 20 mg PO HS #0 tab 08/07/19 02/07/20 08/05/19 aspirin 81 mg PO QAM #0 tab 08/07/19 02/07/20 08/06/19 oxycodone-acetaminophen 5 mg-325 1 tab PO Q6H PRN #20 tab 01/30/20 02/07/20 Unknown mg tablet Past Medical History Medical History (Updated 02/07/20 @ 15:36 by Vianey Madrigal) AAA (abdominal aortic aneurysm) under surveillance by vascular- 4.1cm per most recent imaging Anemia CAD (coronary artery disease) stent (1997) Hyperlipidemia Hypertension Lower GI bleed Osteoarthritis PAD (peripheral artery disease) Peripheral vascular disease Past Family History Family History Son Family history of diabetes mellitus Past Surgical History Surgical History (Updated 02/07/20 @ 15:34 by Vianey Madrigal) H/O breast surgery X 2-BENIGN History of above knee amputation LEFT-08/2015-DOES NOT WEAR PROSTHESIS History of appendectomy History of below knee amputation LEFT History of bilateral tubal ligation History of cardiac cath 1 STENT-15 YRS AGO Hx of arterial bypass of lower limb Previous back surgery BONE SPUR REMOVED S/P femoral-popliteal bypass surgery Social History Smoking Status: Former smoker tobacco type: cigarettes Hx Alcohol Use: Yes Alcohol type: beer alcohol intake frequency: 0-2 drinks per day Hx Substance Use: No substance use type: does not use Testing Laboratory Results 02/07/20 WBC 8.80 H/H 12.5/36.9 PLT 486 12/25/19 SODIUM 136 POTASSIUM 3.9 CHLORIDE 101 CO2 24 BUN 9 CREATININE 0.7 GLUCOSE 107 Electrocardiogram Date: 07/11/19 ST with frequent, consecutive PVC's at 101 bpm. Diffuse NS TWA. At anesthesiologist discretion AM DOS if repeat EKG needed from their perspective. Chest X-Ray Date: 07/11/19 FINDINGS: AP and lateral chest radiographs are compared to study dated 09/12/2015 and correlated with chest CT dated 09/16/2018. The AP view is degraded by patient rotation. The heart is enlarged noting atherosclerotic calcification of the thoracic aorta. Advanced emphysema and chronic interstitial thickening are similar to previous. There is bibasilar scarring/atelectasis. Trace pleural effusions are noted on the lateral view. No airspace consolidation is seen typical for pneumonia. There is no pneumothorax. The skeletal structures are osteopenic. A severe compression deformity is noted in the midthoracic spine. IMPRESSION: Cardiomegaly and emphysema. Trace pleural effusions. Stress Test Date: 02/18/17 Negative DSE/stress EKG for ischemia at 97% MPHR. No chest pain.
[~2020-02-08 10:31] MED LIST changes: +ATROPINE SULFATE 0.1 MG/ML 10ML SYR IV PRN; +HYDROmorphone INJ 1 MG/ML SYRINGE IV PRN; +LABETALOL HCL IV 5 MG/ML 20ML IV PRN; +LR 15ML/HR IV SCH; +MEPERIDINE HCL 25 MG/ML CARP/VIAL IV PRN; +ONDANSETRON INJ 2 MG/ML 2 ML VIAL IV PRN; +PHENYLEPHRINE 100MCG/ML 5ML SYR IV PRN; -SODIUM CHLORIDE 0.9% 1000ML 1,000 ML IV SCH; +ePHEDrine sulfate 50 MG/ML AMP IV PRN
--- NOTE | 2020-02-08 13:50 | History & Physical Bridge Note ---
Date of Service February 08, 2020 History & Physical Bridge Note I have examined the patient, reviewed the History & Physical and in the interval since the performance of the History & Physical I have noted the following changes of clinical significance: no changes noted pt marked admit order written all question answered SO at bedside resigned H and P that was signed yesterday electronically
[2020-02-08] MEDS ORDERED: DEXAMETHASONE SOD INJ 4 MG/ML VIAL ONE (13:56)
[2020-02-08] MEDS ORDERED: PROPOFOL IV EMULSION 10 MG/ML 20 ML VIAL IV ONE (13:56)
[2020-02-08] MEDS ORDERED: fentaNYL citrate 100 MCG/2 ML VIAL ONE ×3 (13:56→15:20)
[2020-02-08] MEDS ORDERED: ONDANSETRON INJ 2 MG/ML 2 ML VIAL ONE ×2 (13:56→15:21)
[2020-02-08] MEDS ORDERED: MIDAZOLAM HCL 1 MG/ML 2ML VIAL ONE (13:56)
[2020-02-08] MEDS ORDERED: LIDOCAINE HCL 2% 2 ML VIAL/AMP(20MG/ML) INFIL ONE (13:56)
[2020-02-08] MEDS ORDERED: PHENYLEPHRINE 100MCG/ML 5ML SYR ONE (14:57)
--- NOTE | 2020-02-08 15:05 | Post Operative Brief Note ---
PG Immediate Post Op with CF Date of Surgery February 08, 2020 Pre & Post Diagnosis Operation Date: 02/08/20 12:20 Pre-Op Diagnosis: Edema and Cellulitis Left Above Knee Amputation Post-Op Diagnosis: Edema and Cellulitis Left Above Knee Amputation I identified the patient and participated in the time-out.: Yes Procedure Operation Date: 02/08/20 12:20 Actual Procedures p Incision and Drainage with Debridement and Excision of Nonfunctioning [place]-Isaac Graft Left Inner Thigh - Duane Alexandre MD Surgeon Duane Alexandre MD Clinical Law Professor moo trevino Estimated Blood Loss 150 Findings Consistent with Post-Op Diagnosis Specimens Specimen Description: Permanent: A. Remnants of femoral popliteal Goretex Graft Culture #1: Left Femoral Abscess for aerobic, anaerobic, gram stain with sensitivity
[2020-02-08] MEDS: fentaNYL citrate 100 MCG/2 ML VIAL IV PRN ×4 (15:22→15:37)
--- NOTE | 2020-02-08 15:24 | Operative Report ---
PG Post Operative Report Pre & Post Diagnosis Operation Date: 02/08/20 12:20 Pre-Op Diagnosis: Edema and Cellulitis Left Above Knee Amputation Post-Op Diagnosis: Edema and Cellulitis Left Above Knee Amputation I identified the patient and participated in the time-out.: Yes Procedure Operation Date: 02/08/20 12:20 Actual Procedures p Incision and Drainage with Debridement and Excision of Nonfunctioning [place]Isaac Graft Left Inner Thigh - Duane Alexandre MD The patient was brought into the operating theater LMA general anesthesia [place] catheter inserted a timeout was had patient was identified after we have prepped the left AKA operative field side with Betadine solution and properly draped the patient had a draining open wound on the medial aspect of the thigh purulent drainage with some necrosis and she also had a some induration in the medial aspect of the thigh more superiorly she had a previous history of a femoral popliteal [place]ac graft that is long been nonfunctioning and we felt the possibility that this was causing the infection that eventually materialized with a open draining therefore we inserted a finger in the opening that distally that was draining and use this cautery we opened up the incision and evidently the whole tract and we were able then to identify the tied off [place] graft in the upper mid thigh were the larger indurated area was we opened this completely up and then I made a counterincision up in the groin area to take the [place] off the superficial femoral artery where it was coming off this was pretty much therefore we exposed the anastomosis I used 2-0 nylon suture at the base suturing of the artery there was no bleeding and removing the graft in total I elected this point just the communicated to the groin incision with the previous incision mid time and therefore that the whole tract that was infected was exposed some necrosis of the subcutaneous fascia was debrided cultures were taken at this point a 2 inch Kerlix was brought on the field better normal saline solution squeezed the excess fluid and packed the whole wound open week strategically placed on 2-0 nylon just to hold the packing and tach 4 x 4 larger Kerlix and Yandel was applied procedure was tolerated well by the patient estimated blood loss 150 mostly from oozing from the subcutaneous fatty tissues as patient has been on Xarelto. Thank you addendum Barb Lucio physician social research assistant was present throughout the case and help with retraction and exposure and packing Surgeon Duane Alexandre MD Slice Plug Cutter Operator Helper moo trevino Estimated Blood Loss 150 Findings Consistent with Post-Op Diagnosis Specimens dirty sub cut fat c and s Description of Procedure merda I attest to the content of the Intraoperative Record and any orders documented therein. Any exceptions are noted below.
--- NOTE | 2020-02-08 16:13 | Anesthesiology Progress Note ---
Date of Service February 08, 2020 Anesthesia Post Procedure Vital Signs Vital Signs: Temp Pulse Pulse Resp BP BP Pulse Ox 02/08/20 15:55 36.4 C L 100 H 18 130/69 95 02/08/20 15:40 100 H 18 126/85 95 02/08/20 15:30 96 H 18 132/75 96 02/08/20 15:20 95 H 18 125/77 96 02/08/20 15:11 37.4 C 91 H 16 126/78 95 02/08/20 11:06 36.8 C 66 16 129/69 92 Pain Intensity Left Leg: Pain Intensity: 4 Transfer of Care Handoff Completed per policy Notes Mental Status: alert / awake / arousable and participated in evaluation Patient Amnestic to Procedure: Yes Nausea / Vomiting: adequately controlled Pain: adequately controlled Airway Patency, RR, SpO2: stable & adequate BP & HR: stable & adequate Hydration State: stable & adequate Anesthetic Complications: no major complications apparent
[2020-02-08] MEDS ORDERED: PIPERACILL/TAZOBAC CONSULT ACTIVE PRN (16:14)
[2020-02-08] MEDS ORDERED: ONDANSETRON INJ 2 MG/ML 2 ML VIAL IV PRN (16:14)
[2020-02-08] MEDS ORDERED: OXYCODONE/ACETAMINOPHEN 5mg/325mg TAB PO PRN (16:14)
[2020-02-08] MEDS: MoRPHine SULFATE 2 MG/ML CARP IV PRN (16:48)
[2020-02-08] MEDS ORDERED: PIPERACILLIN/TAZOBACTAM 3.375 GM in DEXTROSE 5% 100 ML IV ONE (17:00)
[2020-02-08] MEDS ORDERED: LACTATED RINGER'S 1,000 ML IV SCH (17:00)
[2020-02-08] MEDS: cilostazoL 100 MG TAB PO SCH (20:17)
[2020-02-08] MEDS: METOPROLOL TARTRATE 50 MG TAB PO SCH (20:17)
[2020-02-08] MEDS: OXYCODONE/ACETAMINOPHEN 5mg/325mg TAB PO PRN (20:20)
[2020-02-08] MEDS ORDERED: ATORVASTATIN 40 MG TAB PO SCH (21:00)
[2020-02-08] MEDS: PIPERACILLIN/TAZOBACTAM 3.375 GM in DEXTROSE 5% 100 ML IV SCH (21:12)
[2020-02-09 03:03] LABS: Basophils # (auto) 0.02 K/uL (0-0.2); Basophils % (auto) 0.2 %; Hematocrit (blood only) 32.8 % (37-47); Hemoglobin 10.8 g/dL (12.0-16.0); Immature Granulocytes # (auto) 0.02 K/uL (0.00-0.02); Immature Granulocytes % (auto) 0.2 %; Lymphocytes # (auto) 0.69 K/uL (1.2-3.4); Lymphocytes % (auto) 8.6 %; Mean Corpuscular Hemoglobin 28.3 pg (25-34); Mean Corpuscular Hgb Conc 32.9 g/dL (32-36); Mean Corpuscular Volume 86.1 fL (80-100); Mean Platelet Volume 8.7 fL (7.4-10.4); Monocytes # (auto) 0.26 K/uL (0.11-0.59); Monocytes % (auto) 3.2 %; Neutrophils # (auto) 7.08 K/uL (1.4-6.5); Neutrophils % (auto) 87.8 %; Platelet Count 382 K/uL (130-400); RDW Coefficient of Variation 14.2 % (11.5-14.5); RDW Standard Deviation 44.4 fL (36.4-46.3); Red Blood Count 3.81 M/uL (4.2-5.4); White Blood Count 8.07 K/uL (4.8-10.8)
[2020-02-09 03:32] LABS: BUN Creatinine Ratio 14.6 (10-20); Calcium 7.9 mg/dl (8.5-10.1); Est GFR (African American) 98.6; Potassium 4.5 mmol/L (3.5-5.1)
[2020-02-09] MEDS: PIPERACILLIN/TAZOBACTAM 3.375 GM in DEXTROSE 5% 100 ML IV SCH (05:44)
--- NOTE | 2020-02-09 07:45 | Anesthesiology Progress Note ---
Date of Service February 09, 2020 Anesthesia Post Procedure Vital Signs Vital Signs: Temp Pulse Pulse Pulse Resp BP BP 02/09/20 04:00 36.6 C 73 16 122/64 02/08/20 23:46 36.4 C L 60 16 119/58 L 02/08/20 18:01 36.5 C 76 17 120/59 L 02/08/20 17:10 36.6 C 87 17 111/71 02/08/20 16:42 36.4 C L 90 17 125/74 02/08/20 16:00 36.3 C L 76 14 127/85 02/08/20 15:55 36.4 C L 100 H 18 130/69 02/08/20 15:40 100 H 18 126/85 02/08/20 15:30 96 H 18 132/75 02/08/20 15:20 95 H 18 125/77 02/08/20 15:11 37.4 C 91 H 16 126/78 02/08/20 11:06 36.8 C 66 16 129/69 Pulse Ox 02/09/20 04:00 90 02/08/20 23:46 95 02/08/20 18:01 92 02/08/20 17:10 93 02/08/20 16:42 92 02/08/20 16:00 93 02/08/20 15:55 95 02/08/20 15:40 95 02/08/20 15:30 96 02/08/20 15:20 96 02/08/20 15:11 95 02/08/20 11:06 92 Pain Intensity Left Leg: Pain Intensity: 4 Notes Mental Status: alert / awake / arousable and participated in evaluation Patient Amnestic to Procedure: Yes Nausea / Vomiting: adequately controlled Pain: adequately controlled Airway Patency, RR, SpO2: stable & adequate BP & HR: stable & adequate Hydration State: stable & adequate Anesthetic Complications: no major complications apparent and Pt Satisfied with anesthetic care
--- NOTE | 2020-02-09 08:10 | Surgery Progress Note ---
Date of Service February 09, 2020 Assessment & Plan Admission and Anticipated Discharge Date Admission Date: 02/09/20 Patient is first postoperative day status post removal of infected graft in the left thigh area the graft had been nonfunctioning for a number of years the wound was packed open with Kerlix gauze held in place with some nylon sutures Operative findings was discussed with the patient and as we had anticipated preoperatively and the patient was made aware the likely course of therapy would be to place a VAC system on the wound I discussed the situation with the wound nurse and I will leave it up to her to remove the packing and sutures and apply a VAC system at her discretion Will be back later to reevaluate her Subjective patient had a good night with minimal discomfort in the operative field Physical Exam Physical Exam: He is laying comfortably in bed at been up earlier this morning to void The dressing is intact no evidence of any ongoing bleed Results & Data ([facility]) Vital Signs (Past 12 Hours) Vital Signs Temp Pulse Resp BP Pulse Ox 02/09/20 07:08 36.5 C 62 16 112/61 91 02/09/20 04:00 36.6 C 73 16 122/64 90 02/08/20 23:46 36.4 C L 60 16 119/58 L 95 lab noted PG Care Time/CCT Total # of Minutes Spent Total Time Spent with Patient: Total time spent is greater than 50% in coordination of care (as documented) at patient's floor/unit and/or counseling patient: Coding Level of Care Code None
[2020-02-09] MEDS: METOPROLOL TARTRATE 50 MG TAB PO SCH (08:51)
[2020-02-09] MEDS: cilostazoL 100 MG TAB PO SCH (08:51)
[2020-02-09] MEDS ORDERED: ASPIRIN 81 MG ECTAB PO SCH (09:00)
[2020-02-09] MEDS ORDERED: AMLODIPINE BESYLATE 5 MG TAB PO SCH (09:00)
[2020-02-09] MEDS: MoRPHine SULFATE 2 MG/ML CARP IV PRN (09:34)
[2020-02-09 10:42] VITALS: BP 96/54; TEMP 97.9
[2020-02-09 11:02] VITALS: O2SAT 90
--- NOTE | 2020-02-09 11:15 | Surgery Progress Note ---
Date of Service February 09, 2020 Assessment & Plan (1) Abscess of left thigh: At this time the patient was anxious to go home I repacked the wound with Kerlix placed a Kerlix around the whole thigh placed an ABD and an Yandel wrap our intent is to have the patient come into the office on Wednesday I do not want to stop the Xarelto since the right lower extremity has significant peripheral vascular disease and it was recently revascularized Initial culture so a Staphylococcus in the wound as an outpatient I put her on Bactrim DS when she has some cellulitis at the stump and he responded very well to that therefore at this time we will continue with Bactrim Instructions regarding wound care was given to the patient and her was present also Present on Admission?: Yes Subjective The patient is resting comfortably with some discomfort in the operative field Intraoperative findings were discussed with the patient including plan for removing the packing and placing a VAC system Physical Exam Physical Exam: He is alert coherent spit up around not feeling dizzy The original packing that we have put yesterday in the wound had been removed by the wound nurse in anticipation of placing a VAC system but however there is still moderate oozing that she felt that VAC system is contraindicated The patient has been on Xarelto for peripheral vascular disease especially the right leg that almost jeopardize another amputation approximately a month ago I redressed the wound the Kerlix it was placed in the wound by the nurse earlier today had some bleeding stain on it there appeared to be some oozing in the upper aspect of the incision where some venous oozing was appreciated however the wound itself is closing and rapidly and is much clearer with real viable tissue and no evidence of any necrosis or cellulitis. Results & Data ([facility]) Vital Signs (Past 12 Hours) Vital Signs Temp Pulse Resp BP Pulse Ox 02/09/20 11:01 75 90 02/09/20 10:40 36.6 C 58 L 16 96/54 L 94 02/09/20 08:53 61 105/49 L 91 02/09/20 07:08 36.5 C 62 16 112/61 91 02/09/20 04:00 36.6 C 73 16 122/64 90 02/08/20 23:46 36.4 C L 60 16 119/58 L 95 Hemoglobin noted blood pressure noted most recent 1 probably related to her antihypertensive that she took she also has an O2 sats on room air about 87 which is pretty normal for her she says when she moves around she is able to b reathe better PG Care Time/CCT Total # of Minutes Spent Total Time Spent with Patient: Total time spent is greater than 50% in coordination of care (as documented) at patient's floor/unit and/or counseling patient: Coding Level of Care Code None Diagnoses Abscess of left thigh L02.416
[2020-02-09 12:24] VITALS: PULSE 100
[2020-02-09] MEDS: OXYCODONE/ACETAMINOPHEN 5mg/325mg TAB PO PRN (13:24)
--- NOTE | 2020-02-12 13:32 | Discharge Summary ---
Date of Service February 12, 2020 Principal Diagnosis Abscess of left thigh Discharge Exam awake Skin some discomfort in surgical wound. packing removed, some venous oozing noted, no necrotic tissue. wound redressed & packed with kerlex Discharge Data Allergies Allergy/AdvReac Type Severity Reaction Status Date / Time diphenhydramine AdvReac Intermediate heart Verified 02/08/20 11:25 racing Procedures Performed Operation Date: 02/08/20 12:20 Actual Procedures p Incision and Drainage with Debridement and Excision of Nonfunctioning [place]-Isaac Graft Left Inner Thigh - Duane Alexandre MD Ordered Studies 02/08/20 05:00 US - OR guided needle placemen Routine Hospital Course (1) Abscess of left thigh: This is a 79y F with a PMH of left AKA who presented to the [facility] on 02/08/20 for surgical debridement of L thigh due to concern for cellulitis with area of induration and concern for an infected gore-isaac graft. On 02/07 the patient went to the OR with Dr. Alexandre and underwent an I&D and excision of nonfunctioning gore-isaac graft of left inner thigh. The patient tolerated the pro cedure well, see op note for full details. The patient was transferred to the med/surg floor in stable condition, with wound packing in place to L thigh, a regular diet, prn pain medication, and on IV zosyn. POD#1 wound care came to see the wound, thought it was still too oozy to place a wound vac on at this time, therefore it was re-packed with a kerlex gauze dressing. Otherwise the wound looked well. Patient's pain was tolerable and she was tolerating a diet. She was deemed stable for discharge to home with close follow up in clinic next week. She was instructed on dressing changes and was given a script for bactrim to complete a course of antibiotic at home. Patient expressed understanding and was stable for discharge on 02/08. Total Time Total Time Spent Total Time Spent (In Minutes): 10 Discharge Plan Discharge Items Patient Disposition: Home - Self-Care Reason For Visit: Edema and Cellulitis Left Above Knee Amputation Discharge Diagnosis: incision and drainage of L thigh wound, along with debridement and removal of gortex-graft Activity: Per Instructions section Lifting: No more than 25 pounds Bathing Comment: may shower Exercise/Sports: Wait until after follow-up appointment Non-emergency contact: Surgeon Call non-emergency contact if: you have any medication questions, your symptoms worsen, your pain is not controlled, your pain is worsening, your pain is unusual for you, your pain is concerning for you, you have a fever, your temperature is above 101.5, your wound has increased redness, your wound has increased drainage and your wound pain has increased Follow-up/Referrals: Duane Alexandre MD [Surgeon] - 02/16/20 8:30 am (Please call to schedule follow up in clinic within 1 week) Arturo Bermudez MD [Primary Care Provider] - Diet: Heart Healthy Addtl Attending Provider Instructions: Please care for your left thigh wound as you have been previously instructed to prior to discharge from the hospital. Pending Studies at Discharge: Yes Studies:: surgical pathology Stand-Alone Forms: My [facility] [employer], Opioid Pain Management, Smoking Cessation Medications and DC Order Prescriptions: New sulfamethoxazole-trimethoprim [Bactrim DS] 800-160 mg tablet 1 tab PO BID Qty: 20 RF: 0 Continued nitroglycerin [Nitrostat] 0.4 mg tablet, sublingual 0.4 mg Sublingual Q5M PRN (Reason: Chest Pain) RF: 0 cilostazol 100 mg tablet 100 mg PO BID Qty: 60 RF: 2 multivitamin Tablet 1 tab PO QAM RF: 0 atorvastatin [Lipitor] 40 mg Tablet 40 mg PO HS RF: 0 amlodipine [Norvasc] 10 mg Tablet 10 mg PO QAM RF: 0 metoprolol tartrate [Lopressor] 50 mg Tablet 50 mg PO BID RF: 0 Calcium 600 + D(3) 600 mg calcium- 200 unit Capsule 1 tab PO QAM RF: 0 omega 5-bag-ivx-fish oil [Fish Oil] 1,000 mg (120 mg-180 mg) Capsule 1 tab PO QAM RF: 0 potassium chloride [K-Tab] 20 mEq Tablet Extended Release 20 meq PO BID RF: 0 furosemide [Lasix] 40 mg tablet 40 mg PO BID RF: 0 aspirin 81 mg tablet,delayed release (DR/EC) 81 mg PO QAM Qty: 0 RF: 0 Xarelto 20 mg tablet 20 mg PO HS Qty: 0 RF: 0 Discontinued oxycodone-acetaminophen [Percocet] 5-325 mg tablet 1 tab PO Q6H PRN (Reason: pain) Qty: 20 RF: 0 No Action oxycodone-acetaminophen [Percocet] 5-325 mg tablet 1 tab PO Q6H PRN (Reason: pain, for initial therapy, max 6 tabs per day) Qty: 15 RF: 0 Discharge Orders: Discharge Order (Routine); Ordered 02/09/20 Ordered By: uDane Courtney/Other Patient Handouts: Discharge Instructions for Cellulitis, ED Cellulitis Admission Data Admit Date/Time: 02/08/20 15:13 Attending Provider: Duane Alexanrde Admit Provider: Duane Alexandre Primary Care Provider: Arturo Bermudez Other Interventions: Discharge Summary Assessment (RN) Last Done: 02/09/20 12:22 Coding Level of Care Code D/C Day Management <30 mins Diagnoses Abscess of left thigh L02.416
== END 2020-02-09 14:05 | disposition home or self-care (01) ==
LOC: 3N 10:31 → ASU 10:31

== ENCOUNTER 2021-07-15 08:49 | Inpatient (IN) ==
--- NOTE | 2021-07-08 14:07 | PAT Medication Instructions ---
Medication Instructions Date of Service July 08, 2021 Home Medications Medication Instructions Recorded aspirin 81 mg tablet,delayed 81 mg PO QAM #0 tab 08/07/19 release rivaroxaban 20 mg tablet (Xarelto) 20 mg PO HS #0 tab 08/07/19 nitroglycerin 0.4 mg sublingual 0.4 mg SUBLINGUAL Q5M PRN #20 tab 09/02/20 tablet (Nitrostat) amlodipine 10 mg tablet (Norvasc) 10 mg PO QPM atorvastatin 40 mg tablet (Lipitor) 40 mg PO HS calcium carbonate 600 mg-vitamin D3 5 mcg (200 unit) capsule (Calcium 600 + D(3)) 1 tab PO QAM metoprolol tartrate 50 mg tablet (Lopressor) 50 mg PO BID multivitamin 1 tab PO QAM omega 8-qbp-cli-fish oil 1,000 mg (120 mg-180 mg) capsule (Fish Oil) 1 tab PO QAM potassium chloride 20 mEq tablet,extended release (K-Tab) 20 meq PO BID furosemide 40 mg tablet (Lasix) 40 mg PO BID aspirin 81 mg tablet,delayed release 81 mg PO QAM rivaroxaban 20 mg tablet (Xarelto) 20 mg PO HS cilostazol 100 mg tablet 100 mg PO BID nitroglycerin 0.4 mg sublingual tablet (Nitrostat) 0.4 mg SUBLINGUAL Q5M PRN Continue as directed nitroglycerin 0.4 mg sublingual tablet (Nitrostat) 0.4 mg SUBLINGUAL Q5M PRN(if needed) ASK your prescriber and surgeon aspirin 81 mg tablet,delayed release 81 mg PO QAM rivaroxaban 20 mg tablet (Xarelto) 20 mg PO HS cilostazol 100 mg tablet 100 mg PO BID STOP taking 2 weeks before surgery omega 1-mkp-yxl-fish oil 1,000 mg (120 mg-180 mg) capsule (Fish Oil) 1 tab PO QAM DO NOT take the morning of surgery calcium carbonate 600 mg-vitamin D3 5 mcg (200 unit) capsule (Calcium 600 + D(3)) 1 tab PO QAM multivitamin 1 tab PO QAM potassium chloride 20 mEq tablet,extended release (K-Tab) 20 meq PO BID furosemide 40 mg tablet (Lasix) 40 mg PO BID Take morning of surgery With a small sip of water, OTHERWISE NOTHING TO EAT OR DRINK AFTER MIDNIGHT: metoprolol tartrate 50 mg tablet (Lopressor) 50 mg PO BID Take evening before surgery amlodipine 10 mg tablet (Norvasc) 10 mg PO QPM atorvastatin 40 mg tablet (Lipitor) 40 mg PO HS metoprolol tartrate 50 mg tablet (Lopressor) 50 mg PO BID potassium chloride 20 mEq tablet,extended release (K-Tab) 20 meq PO BID furosemide 40 mg tablet (Lasix) 40 mg PO BID Other Notes If you have any questions please call us at [phone] or [phone] or [phone] or [phone]
--- NOTE | 2021-07-11 11:15 | Anesthesiology Consultation ---
Date of Service July 11, 2021 Assessment & Plan (1) Encounter for pre-operative examination: - cardiology 04/22/2021 [place]: "...stable from cardiovascular standpoint...hypertension, hypercholesterolemia, peripheral vascular disease (left AKA, 2015; bilateral iliac artery stenting, October 2016; right axillary to femoral, femoral to posterior tibial bypass, June 2019; AAA, Dr. Alexandre), abdominal aortic aneurysm (4.4 cm, Dr. Bolanos, May 2020), and her coronary artery disease (OM PCI, 2005). Since her last visit, the patient has been stable. She is able to carry on activities of daily life with the assistance of a wheelchair..." - vascular surgery 11/28/2020: "...severe peripheral arterial disease, status post multiple arterial bypasses...overall patient is doing well since having undergone her bypass surgeries in June 2019...reevaluated in 6 more months...AAA...continues to measure 4.4 cm which is identical to the previous ultrasound performed 6 months ago. This is almost completely thrombosed..." - Case discussed with Dr. Navarrete who advised nothing further needed pre-op, patient acceptable risk to proceed with surgery. - COVID screening: Per assessment on 07/11/2021: Travel screen negative, no known COVID-19 positive contacts or current COVID-19 related symptoms in past 2 weeks. Patient vaccinated. Surgeon arranging preop COVID testing, scheduled 07/11/2021 at PAT appointment. Awaiting results. Chart Review Chart Review: Acceptable Risk for Surgery and Patient seen in Pre Admission Testing Teaching & Discussion Pre-Anesthesia Teaching/Discussion Notes: Instructed NPO after midnight before surgery, except medications with 15 cc of water. Medication instructions provided according to the PAT guidelines. History Surgery Operation Date: 07/15/21 11:20 Proposed Procedures p Embolization Distal Aorta Left Brachial Approach - Julien Bolanos MD Height/Weight Height: 5 ft 2 in Weight: 56.699 kg Allergies Allergy/AdvReac Type Severity Reaction Status Date / Time diphenhydramine AdvReac Intermediate heart Verified 07/04/21 14:27 racing Medications Home Medications Medication Instructions Recorded Confirmed Last Taken amlodipine 10 mg tablet (Norvasc) 10 mg PO QPM 03/24/18 07/04/21 04/01/21 20:00 atorvastatin 40 mg tablet (Lipitor) 40 mg PO HS 03/24/18 07/04/21 04/01/21 20:00 calcium carbonate 600 mg-vitamin 1 tab PO QAM 03/24/18 07/04/21 04/01/21 09:00 D3 5 mcg (200 unit) capsule (Calcium 600 + D(3)) metoprolol tartrate 50 mg tablet 50 mg PO BID 03/24/18 07/04/21 04/02/21 04:00 (Lopressor) multivitamin 1 tab PO QAM 03/24/18 07/04/21 04/01/21 09:00 omega 2-zuz-jom-fish oil 1,000 mg 1 tab PO QAM 03/24/18 07/04/21 04/01/21 09:00 (120 mg-180 mg) capsule (Fish Oil) potassium chloride 20 mEq 20 meq PO BID 03/24/18 07/04/21 04/01/21 16:00 tablet,extended release (K-Tab) furosemide 40 mg tablet (Lasix) 40 mg PO BID 08/06/19 07/04/21 04/01/21 16:00 aspirin 81 mg tablet,delayed 81 mg PO QAM #0 tab 08/07/19 07/04/21 04/01/21 09:00 release rivaroxaban 20 mg tablet (Xarelto) 20 mg PO HS #0 tab 08/07/19 07/04/21 03/31/21 cilostazol 100 mg tablet 100 mg PO BID 03/06/20 07/04/21 04/02/21 04:00 nitroglycerin 0.4 mg sublingual 0.4 mg SUBLINGUAL Q5M PRN #20 tab 09/02/20 07/04/21 Unknown tablet (Nitrostat) Past Medical History Medical History (Updated 07/11/21 @ 11:30 by Alyssa Moore PA-C) AAA (abdominal aortic aneurysm) under surveillance by vascular- 4.1cm per most recent imaging Anemia CAD (coronary artery disease) stent (1997) Hyperlipidemia Hypertension controlled, stable per pt Lower GI bleed HISTORY OF FROM HEMORRHOID On anticoagulant therapy Osteoarthritis PAD (peripheral artery disease) Peripheral vascular disease Patient denies h/o stroke, seizures, heart attack, heart failure, DM, or blood clots. Exercise / Class Metabolic Activity IV < 2 Limit ADL/Bedbound (wheelchair bound) Past Family History Family History Son Family history of diabetes mellitus Other No family history of adverse response to anesthesia Past Surgical History Surgical History H/O breast surgery X 2-BENIGN LUMPECTOMY History of above knee amputation LEFT-08/2015-DOES NOT WEAR PROSTHESIS History of appendectomy History of bilateral tubal ligation History of cardiac cath 1 STENT-15 YRS AGO [facility] History of colonoscopy History of esophagogastroduodenoscopy (EGD) History of incision and drainage left inner thigh 02/08/2020: LMA#4 atraumatic x 1. No issues per anesthesia postop progress note. Hx of arterial bypass of lower limb LEFT LEG 07/13/2019: Grade 2 view, MAC#3, ETT#7.0 atraumatic x 1. No issues per anesthesia postop progress note. Previous back surgery BONE SPUR REMOVED S/P femoral-popliteal bypass surgery Past Anesthesia History No Hx of Anesthesia Complications and No Family Hx of Anesthesia Complications History of PONV No Hx of PONV and No Hx of Motion Sickness Social History Smoking Status: Former smoker tobacco type: cigarettes Do You Dip or Chew Tobacco: No Smoking End Date: 2008 Hx Alcohol Use: Yes Alcohol type: beer alcohol intake frequency: 0-2 drinks per day Hx Substance Use: No substance use type: does not use Review of Systems Snoring, denies witnessed apneas or sleep studies. Patient denies chest pain, shortness of breath, dyspnea on exertion, reflux, fever, chills, cough, wheezing, or palpitations. Physical Exam Vital Signs Vitals BP 149/71 P 62 TEMP 98.4 SP02 93% on RA (chronic per pt, also noted on previous anesthesia consultations within past 6 months, denies acute or chronic pulmonary symptoms) RESP 17 Physical Full cervical extension range of motion without pain Full TMJ range of motion TMD 3.5 finger breaths Mallampati Score 3 Dentition: full upper plate and partial lower; denies chipped or loose teeth, caps/crowns Lungs: normal respiratory effort. Clear throughout to auscultation, no adventitious breath sounds Cardiac: regular rate and rhythm, no murmurs noted Carotid arteries: negative bruit bilat Extremities: no distal extremity edema, left below the knee amputation Lab Results Anesthesia Preop Results Results Anesthesia Widget: WBC 8.00 K/uL (4.8-10.8) 07/11/21 Hgb 14.8 g/dL (12.0-16.0) 07/11/21 Hct 44.2 % (37-47) 07/11/21 Plt 274 K/uL (130-400) 07/11/21 Na 139 mmol/L (136-145) 07/11/21 K 4.0 mmol/L (3.5-5.1) 07/11/21 Cl 103 mmol/L (98-107) 07/11/21 CO2 29 mmol/L (21-32) 07/11/21 BUN 15 mg/dl (6-23) 07/11/21 Creat 0.76 mg/dl (0.6-1.2) 07/11/21 Glucose Level 87 mg/dl (70-99) 07/11/21 PT 10.7 Seconds (9.0-12.0) 07/11/21 PTT 30.3 Seconds (21.0-31.0) 07/11/21 INR 1.1 (0.9-1.1) 07/11/21 Blood Type A Positive 07/11/21 Antibody Screen NEGATIVE 07/11/21 Testing Electrocardiogram Date: 07/11/21 Sinus rhythm with occasional PVCs, rate 81 bpm Chest X-Ray Date: 07/11/21 FINDINGS: Cardiac silhouette is moderately enlarged. Calcified plaque the thoracic aorta. Hyperinflation. Chronic reticular interstitial opacities with emphysema. No pneumothorax, large pleural effusion or lobar airspace consolidation. Degenerative changes of the shoulders and spine. IMPRESSION: No acute process. Other Testing Carotid ultrasound 06/17/2021 IMPRESSION: Moderate to extensive atherosclerotic plaque without evidence for a hemodynamically significant stenosis. Abdomen/pelvis CTA 06/12/2021 FINDINGS: Lower chest: The heart is normal in size and without pericardial effusion. The coronary arteries are densely calcified. Emphysematous change is noted. There is bibasilar scarring/atelectasis. No airspace consolidation or pleural effusion is identified. A fat-containing Bochdalek hernia is seen at the right lung base. Liver: The contrast-enhanced liver is normal in size, contour, and attenuation. There is no intrahepatic biliary ductal dilatation. The hepatic veins and portal veins are patent. Scattered subcentimeter hypodensities likely represent cysts but are too small for definitive characterization. Gallbladder: There are small calcified gallstones with no CT evidence of acute cholecystitis. Spleen: Normal in size and attenuation. Pancreas: Moderately atrophic and grossly unremarkable. Adrenal glands: Unremarkable. Kidneys: The contrast enhanced kidneys demonstrate mild cortical atrophy and are without hydronephrosis. There are numerous bilateral renal vascular calcifications. The kidneys enhance symmetrically. Abdominal aorta and iliac arteries: Advanced atherosclerotic plaque and irregularity seen throughout the abdominal aorta and iliac arteries. There is a large infrarenal abdominal aortic aneurysm. The aneurysm measures up to 5.0 x 5.0 cm (AP x transverse). The aneurysm sac extends approximately 8 cm in craniocaudal length. This originates approximately 1.0 cm below the renal arteries and extends to the bifurcation. There is significant mural thrombus throughout the aneurysm sac. The minimum patent luminal diameter of the distal abdominal aorta measures 1.0 cm. Right iliac arteries: There is a stent within the right common iliac artery. The right common iliac artery and the stent are thrombosed. There is complete thrombosis at the origin of both the right internal and external iliac arteries. A right axillofemoral bypass is patent. There are tiny foci of contrast within the midportion of the right external iliac artery and the peripheral right internal iliac artery. The right superficial femoral artery is patent as visualized. There is occlusion of the right profunda femoris artery. Left iliac arteries: A stent is also seen in the left common iliac artery. There is trace flow within the proximal end of the stent. This is thrombosed distally. There is also a thrombosed 2.7 cm aneurysm of the left common iliac artery. There is complete thrombosis of the left external iliac artery and the left common femoral artery. There is minimal reconstitution of flow at the bifurcation of the common femoral artery. The proximal superficial femoral artery appears thrombosed on the left. There is thready incomplete flow within the right internal iliac artery. Major branches of the abdominal aorta: Advanced atherosclerotic plaque is seen at the origin of the celiac trunk and the superior mesenteric artery. There is moderate to severe stenosis at the origin of both vessels. There is thrombosis at the origin of the inferior mesenteric artery. This is opacified distally via retrograde flow. The hepatic artery is diminutive and grossly patent. The splenic artery is diminutive but patent. Single bilateral renal arteries are patent noting significant atherosclerotic plaque and irregularity. There is mild stenosis at the origin of both renal arteries. Bowel: There is no bowel obstruction. The appendix is not identified and reported surgically absent. Peritoneum: There is no intraperitoneal free air or abdominal ascites. There is a fat-containing umbilical hernia. Lymphadenopathy: None. Pelvic viscera: The bladder, uterus, and adnexa are normal as visualized. Skeletal structures: The skeletal structures are osteopenic. There is moderate lumbosacral spondylosis. No lytic or blastic lesion is seen. IMPRESSION: 1. Advanced emphysema. 2. There is a large infrarenal abdominal aortic aneurysm as detailed above. This measures 5 x 5 cm and is largely thrombosed distally. 3. A right axillofemoral bypass is patent. 4. There is complete thrombosis of the right common iliac artery, as well as thrombosis throughout the right internal and external iliac arteries. 5. There is thrombosis of the right profunda femoris artery. 6. There is trace flow within the left common iliac artery stent. 7. There is thrombosis of the distal left common iliac artery, the left external iliac artery, the left common femoral artery, and the majority of the visualized left superficial femoral artery. 8. There is a 2.7 cm thrombosed aneurysm of the left common iliac artery. 9. There is thrombosis at the origin of the inferior mesenteric artery which is opacified via retrograde flow. 10. There is moderate to severe stenosis at the origin of both the celiac and superior mesenteric arteries. 11. Additional findings as above..
--- NOTE | 2021-07-15 07:37 | History & Physical Report ---
Date of Service July 15, 2021 History of Present Illness Primary Care Provider: Arturo Bermudez MD * Final Report * [facility] OUTPATIENT NOTE Name: PONCHO FLORIAN Patient Number: [id number] : 1940 Date of Service: 07/01/2021 Chief Complaint: _Follow-up for CTA HPI: _Mrs. Florian is an elderly female who presents to Dr. Bolanos vascular surgery clinic today for a follow-up visit after undergoing a CTA of the abdomen and pelvis to evaluate her abdominal aortic aneurysm. On routine surveillance ultrasound, her infrarenal AAA was noted to be over 5 cm in diameter. She was then sent for CTA to confirm this as well as to determine a surgical approach. 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 Patient denies any complaints or concerns at this time, but states she is anxious about a possible procedure. The CTA performed prior to today's appointment does confirm that the diameter of her infrarenal abdominal aortic aneurysm is 5.0 cm. It also redemonstrates her extensive vascular disease in the pelvis. Current Home Meds: (Last Updated 07/01 13:46) amLODIPine (amLODIPine 10 mg oral tablet) 10 mg PO Daily aspirin (aspirin 81 mg oral delayed release tablet) 81 mg PO Daily atorvastatin (atorvastatin 40 mg oral tablet) 40 mg PO Daily calcium carbonate (calcium (as carbonate) 600 mg oral tablet) 600 mg PO cilostazol (cilostazol 100 mg oral tablet) 100 mg PO bid ferrous sulfate (ferrous sulfate 325 mg (65 mg elemental iron) oral delayed release tablet) 325 mg PO Daily furosemide (furosemide 40 mg oral tablet) 40 mg PO bid metoprolol (metoprolol tartrate) 50 mg PO bid multivitamin 1 tab PO Daily omega-3 polyunsaturated fatty acids (Fish Oil oral capsule) 1 cap PO Daily potassium chloride (Klor-Con 10 oral tablet, extended release) 20 mEq PO bid rivaroxaban (Xarelto 20 mg oral tablet) TAKE 1 TABLET IN THE EVENING Allergies and Sensitivities: Antihistamine(rapid heart rate) Past Medical History: Problems: (atherosclerosis) S/P vascular bypass S/P femoral-popliteal bypass surgery (atherosclerosis) Pain at rest AAA (abdominal aortic aneurysm) OBJECTIVE Vitals: Last Updated 07/01/21 13:52 Date Temp BP Location Pulse RR SpO2 Pain 07/01/21 124/60 Left Arm 94 94 0 06/05/21 126/70 Right Arm 06/05/21 130/60 Left Arm 71 94 Vital Signs are the last 3 documented. No Orthostatic Data Available Height and Weight: Last Updated 05/30/20 09:33 Date BMI Wt(kg) Wt(lb) Method Ht(cm) (ft-in) Method 05/30/20 57.1 126 Standing Scale 08/03/17 21.44 54.9 121 Standing Scale 160.02 5-3 Heights and Weights are the last 3 documented. Physical Exam _ Constitutional: In general patient is a healthy-appearing well-nourished well- developed elderly female no distress. She is alert and oriented without any deficits. Her heart is regular, her lungs are decreased but clear. Abdomen is soft nontender with active bowel sounds in all four quadrants. Pulsatile mass is appreciated. Her left leg demonstrates an amputation. Her right leg demonstrates faintly palpable distal pulse and brisk capillary refill. ASSESSMENT: _ PLAN: _ 1 ) _abdominal aortic aneurysm Patient's imaging was also reviewed by Dr. Bolanos, who recommends that she undergo repair of this aneurysm. Due to the severity of her atherosclerotic disease and her completely thrombosed iliac system, we recommend that she undergo embolization of her distal aorta via a left brachial approach in order to seal off her aneurysm. The procedure, risks, benefits and alternatives were discussed with the patient by myself at Dr. Bolanos's request. Patient expresses understanding and agreement to proceed. Dr. Bolanos also answered any further questions in the room with the patient prior to her leaving today. Patient was in the office with her . 2 ) _atherosclerosis Patient's longstanding history of severe atherosclerotic disease is well documented. She will continue surveillance of her bypasses as scheduled. Thank you for letting us participate in the care of this patient. Signature Line Electronic Signature on File Electronically Reviewed/Signed by: Zhanna Bronson PA-C Author Signature Dt/Tm:07/01/2021 04:[address] [facility] [place] [address] [facility], [address] [place]. [address] Electronically Reviewed/Signed by: Julien Bolanos MD Cosigner Signature Dt/Tm: 07/02/2021 09:31 AM Director Of Parks And Recreation Semaj Cisneros [facility] [place] [address] [address], [address] [place] [address] Result Type: HVI Outpt Note Date of Service: July 01, 2021 16:22 EST Authorization Status: Final Author or Import Date: CHARBEL Bronson, Zhanna on July 01, 2021 16:30 EST Verified By: MD Luis Miguel, Julien Elder on July 02, 2021 09:31 EST Encounter info: [id number], [place] [address], Clinic, 07/01/2021 - 07/01/2021 Allergies Allergy/AdvReac Type Severity Reaction Status Date / Time diphenhydramine AdvReac Intermediate heart Verified 07/04/21 14:27 racing Home Medications Medication Instructions Recorded Confirmed Type amlodipine 10 mg tablet (Norvasc) 10 mg PO QPM 03/24/18 07/04/21 History atorvastatin 40 mg tablet (Lipitor) 40 mg PO HS 03/24/18 07/04/21 History calcium carbonate 600 mg-vitamin 1 tab PO QAM 03/24/18 07/04/21 History D3 5 mcg (200 unit) capsule (Calcium 600 + D(3)) metoprolol tartrate 50 mg tablet 50 mg PO BID 03/24/18 07/04/21 History (Lopressor) multivitamin 1 tab PO QAM 03/24/18 07/04/21 History omega 1-pin-gxc-fish oil 1,000 mg 1 tab PO QAM 03/24/18 07/04/21 History (120 mg-180 mg) capsule (Fish Oil) potassium chloride 20 mEq 20 meq PO BID 03/24/18 07/04/21 History tablet,extended release (K-Tab) furosemide 40 mg tablet (Lasix) 40 mg PO BID 08/06/19 07/04/21 History aspirin 81 mg tablet,delayed 81 mg PO QAM #0 tab 08/07/19 07/04/21 Rx release rivaroxaban 20 mg tablet (Xarelto) 20 mg PO HS #0 tab 08/07/19 07/04/21 Rx cilostazol 100 mg tablet 100 mg PO BID 03/06/20 07/04/21 History nitroglycerin 0.4 mg sublingual 0.4 mg SUBLINGUAL Q5M PRN #20 tab 09/02/20 07/04/21 Rx tablet (Nitrostat) Past Med/Surg History Medical History (Updated 07/11/21 @ 11:30 by Alyssa Moore PA-C) AAA (abdominal aortic aneurysm) under surveillance by vascular- 4.1cm per most recent imaging Anemia CAD (coronary artery disease) stent (1997) Hyperlipidemia Hypertension controlled, stable per pt Lower GI bleed HISTORY OF FROM HEMORRHOID On anticoagulant therapy Osteoarthritis PAD (peripheral artery disease) Peripheral vascular disease Surgical History H/O breast surgery X 2-BENIGN LUMPECTOMY History of above knee amputation LEFT-08/2015-DOES NOT WEAR PROSTHESIS History of appendectomy History of bilateral tubal ligation History of cardiac cath 1 STENT-15 YRS AGO [facility] History of colonoscopy History of esophagogastroduodenoscopy (EGD) History of incision and drainage left inner thigh 02/08/2020: LMA#4 atraumatic x 1. No issues per anesthesia postop progress note. Hx of arterial bypass of lower limb LEFT LEG 07/13/2019: Grade 2 view, MAC#3, ETT#7.0 atraumatic x 1. No issues per anesthesia postop progress note. 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
[~2021-07-15 08:49] MED LIST changes: -ATROPINE SULFATE 0.1 MG/ML 10ML SYR IV PRN; -HYDROmorphone INJ 1 MG/ML SYRINGE IV PRN; -LABETALOL HCL IV 5 MG/ML 20ML IV PRN; -LR 15ML/HR IV SCH; -MEPERIDINE HCL 25 MG/ML CARP/VIAL IV PRN; -ONDANSETRON INJ 2 MG/ML 2 ML VIAL IV PRN; -PHENYLEPHRINE 100MCG/ML 5ML SYR IV PRN; +SODIUM CHLORIDE 0.9% 1000ML IV SCH; +ceFAZolin 1000MG 1,000 MG/7.5 ML SYR IV SCH; +ceFAZolin 2000MG 2,000 MG/15 ML SYR IV SCH; -ePHEDrine sulfate 50 MG/ML AMP IV PRN
[2021-07-15 09:56] LABS: Creatinine Clr Calc Pharmacy 61.2 ml/min; Est GFR (Non-African American) 87.2 ml/min; Potassium 3.5 mmol/L (3.5-5.1)
[2021-07-15] MEDS ORDERED: fentaNYL citrate 100 MCG/2 ML VIAL ONE ×2 (10:02→11:46)
--- NOTE | 2021-07-15 10:21 | History & Physical Bridge Note ---
Date of Service July 15, 2021 History & Physical Bridge Note I have examined the patient, reviewed the History & Physical and in the interval since the performance of the History & Physical I have noted the following changes of clinical significance: no changes noted
[2021-07-15] MEDS ORDERED: EPINEPHrine INJ 1 MG/ML AMP ONE (10:50)
[2021-07-15] MEDS ORDERED: LIDOCAINE 1% LOCAL 20 ML VIAL ONE (10:51)
[2021-07-15] MEDS ORDERED: BUPIVACAINE 0.5 % 5 MG/1 ML MPF 30ML VIAL ONE (10:51)
[2021-07-15] MEDS ORDERED: ePHEDrine sulfate 50 MG/ML AMP IV PRN (10:52)
[2021-07-15] MEDS ORDERED: ONDANSETRON INJ 2 MG/ML 2 ML VIAL IV PRN ×2 (10:52→12:36)
[2021-07-15] MEDS ORDERED: ATROPINE SULFATE 0.1 MG/ML 10ML SYR IV PRN (10:52)
[2021-07-15] MEDS ORDERED: fentaNYL citrate 100 MCG/2 ML VIAL IV PRN (10:52)
[2021-07-15] MEDS ORDERED: HEPARIN (PORCINE) 1000 UNIT/ML 10 ML (CATH LAB USE ONLY) ONE (11:21)
--- NOTE | 2021-07-15 11:30 | Procedure Note ---
Procedure Note Date of Service July 15, 2021 Note Radial arterial line placed in OR 12 after induction in preparation for aortic embolization with Dr. Bolanos. Right wrist prepped with chlorhexidine and draped with sterile towels. 20 G angiocath placed under sterile technique utilizing sterile gloves, surgical hats and masks. Catheter threaded using seldinger technique with return of pulsatile, bright red blood. Site covered with occlusive dressing and taped in place. Waveform consistent with correct arterial placement. After placement, fingers of procedural hand had normal perfusion. Patient tolerated procedure well without complications. Seda Hernandez MD, PhD Anesthesiologist Coding
[2021-07-15] MEDS ORDERED: LIDOCAINE 2% 2 ML VIAL/AMP(20MG/ML) INFIL ONE (11:48)
[2021-07-15] MEDS ORDERED: ROCURONIUM BROMIDE 10 MG/ML 5 ML VIAL IV ONE (11:48)
[2021-07-15] MEDS ORDERED: ONDANSETRON INJ 2 MG/ML 2 ML VIAL ONE (11:48)
[2021-07-15] MEDS ORDERED: ePHEDrine sulfate 50 MG/ML AMP ONE (11:48)
[2021-07-15] MEDS ORDERED: DEXAMETHASONE SOD INJ 4 MG/ML VIAL ONE (11:48)
[2021-07-15] MEDS ORDERED: PROPOFOL IV EMULSION 10 MG/ML 20 ML VIAL IV ONE (11:48)
[2021-07-15] MEDS ORDERED: GLYCOPYRROLATE 0.2 MG/ML VIAL ONE (11:50)
[2021-07-15] MEDS ORDERED: NEOSTIGMINE METHYLSULFATE 1 MG/ML 10ML VIAL ONE (11:50)
[2021-07-15] MEDS ORDERED: HEPARIN SOD (PORCINE) 1000 UNIT/ML ONE (11:59)
[2021-07-15] MEDS ORDERED: VISIPAQUE PRN (12:15)
--- NOTE | 2021-07-15 12:21 | Procedure Note ---
Angiogram Post Procedure Fluoroscopy Time (minutes): 7.2 Radiation (mGy): 140 Contrast: 50 Post Operative Report Pre & Post Diagnosis Operation Date: 07/15/21 11:20 Pre-Op Diagnosis: Abdominal Aortic Aneurysm I identified the patient and participated in the time-out.: Yes Procedure Operation Date: 07/15/21 11:20 Actual Procedures p Embolization Distal Aorta (Not Applicable) - Julien Bolanos MD Surgeon Julien Bolanos MD [place],PAC Estimated Blood Loss 10 Findings Consistent with Post-Op Diagnosis Specimens none Anesthesia Type General Complications none Disposition Accompanied Patient To Recovery: No Disposition: Recovery Room Indications This is a 80-year-old female who has bilaterally had cardiac lesions and abdominal aortic aneurysm which is enlarging. She does have a right axillofemoral bypass. Her left leg has an above-knee amputation. The blood flow to her right leg is based off the axillofemoral in the left leg is based off collaterals. She has an abdominal attic aneurysm which is expanding since her last visit. Being that there is no outflow from the aneurysm sac recommended embolization of the sac. She is very high risk for aortic surgery. I have discussed the risks options and benefits of the procedure with the patient. The patient understands the risks options and benefits and agrees to the procedure. Description of Procedure The patient was taken the operating placed in supine position. The left upper arm was prepped and draped in a sterile manner. A timeout was performed and the patient was identified. Longitudinal incision was made over the brachial artery in the upper arm. This was isolated was soft and of good caliber. Puncture was then made at the brachial artery and 5 [place] sheath inserted. Using 035 Glidewire and angled glide catheter the wire was passed down into the infrarenal aorta. The glide catheter was advanced. Hand-injection confirmed the positioning to be in the sac of the aneurysm. We then inserted an 035 stiff and wire. Remove the angled glide cath and exchanged to 5 [place] sheath for a 7 [place] destination 90 cm length. The tip of the sheath was positioned in the distal aorta aneurysm sac. We then stacked for Amplatzer plugs. We started with a 22 then an 18 then a 20 followed by an 18. This was stacked up to just below the renal arteries. Last injection showed a decent decreased flow into the sac. At that point the sheath was removed. The brachial arteries was repaired with a 6-0 Prolene suture. Adequate hemostasis was noted. The wound was then closed in usual fashion using running 3-0 Vicryl suture for the subcutaneous layer and a 4-0 Vicryl subcuticular suture for the skin edges. Dermabond was used for dressing.The patient left the operation room in satisfactory condition and tolerated the procedure well. All needle and sponge counts were correct at the end of the procedure. Zhanna Bronson Pac assisted due to lack of resident availability and was necessary for positioning, draping, retraction, wound closure deep layers, subcutaneous tissue, and skin closure and was necessary for assisting with the case. I attest to the content of the Intraoperative Record and any orders documented therein. Any exceptions are noted below.
[2021-07-15] MEDS ORDERED: oxyCODONE/ACETAMINOPHEN 5mg/325mg TAB PO PRN (12:36)
[2021-07-15] MEDS ORDERED: NITROGLYCERIN SL 0.4 MG/TAB TAB SL PRN (12:36)
--- NOTE | 2021-07-15 14:17 | Anesthesiology Progress Note ---
Date of Service July 15, 2021 Anesthesia Post Procedure Vital Signs Vital Signs: Temp Pulse Resp BP Pulse Ox 07/15/21 13:45 36.1 C L 62 12 114/80 96 07/15/21 13:35 58 L 19 115/44 L 92 07/15/21 13:30 67 13 103/42 L 93 07/15/21 13:25 61 17 113/46 L 93 07/15/21 13:20 64 16 112/59 L 93 07/15/21 13:15 62 21 112/59 L 93 07/15/21 13:10 60 24 111/44 L 93 07/15/21 13:05 64 15 113/48 L 92 07/15/21 13:00 64 15 103/50 L 92 07/15/21 12:55 62 15 98/48 L 93 07/15/21 12:50 66 18 88/45 L 95 07/15/21 12:45 75 23 123/69 94 07/15/21 12:40 54 L 23 97/69 L 07/15/21 12:35 88 15 112/69 93 07/15/21 12:32 36.3 C L 95 H 9 L 112/64 93 07/15/21 09:26 37 C 95 H 20 150/86 H 91 Transfer of Care Handoff Completed per policy Notes Mental Status: alert / awake / arousable and participated in evaluation Patient Amnestic to Procedure: Yes Nausea / Vomiting: adequately controlled Pain: adequately controlled Airway Patency, RR, SpO2: stable & adequate BP & HR: stable & adequate Hydration State: stable & adequate Anesthetic Complications: no major complications apparent and Pt Satisfied with anesthetic care
[2021-07-15] MEDS: LACTATED RINGER'S 1,000 ML IV SCH ×2 (14:39→22:52)
--- NOTE | 2021-07-15 14:40 | Critical Care Consultation ---
Date of Consultation July 15, 2021 Assessment & Plan (1) HLD (hyperlipidemia): (2) HTN (hypertension): (3) PVD (peripheral vascular disease): (4) Dyslipidemia: (5) AAA (abdominal aortic aneurysm): Reason Critically Ill: 80-year-old female here with a PMHx significant for extensive PAD who presented with CT findings of AAA at 5cm diameter on routine monitoring and was admitted for AAA embolization by vascular surgery. Neuro CAM ICU: NEGATIVE No acute neurologic concerns Cardiac Infrarenal AAA s/p embolization -Oxycodone as needed for pain -Continue home amlodipine, aspirin, Lipitor, cilostazol, Lopressor, rivaroxaban -Plan to monitor overnight in ICU and possibly downgrade vs DC home if stable Peripheral vascular disease -Continue outpatient monitoring of her extensive vascular disease per vascular surgery Hypertension -Continue home antihypertensives as above Dyslipidemia -Continue home atorvastatin, fish oil Respiratory No acute respiratory concerns GI Heart healthy diet Renal/Electrolytes No significant electrolyte derangement. IVF with LR at 125 cc/h can discontinue when patient tolerating p.o. Continue home Lasix 40mg PO BID Continuing home calcium and potassium supplements Replace lytes as needed. No concerns at this time. Endo ICU hyperglycemia protocol Heme Stable H&H. Monitor Anticoagulated on Xarelto ID No concerns for infection at this point. Monitor fever curve. Lines/IV Access - PIVs intact. DVT Prophylaxis Anticoagulated on Xarelto Dispo: ICU monitoring overnight with likely downgrade vs DC if she remains stable Thank you for allowing us to be part of this patient's care. Please refer to Dr. Andrade's documentation for any further recommendations. Supervising Physician Co-Signing Physician Notes Dr. Castro was resident physician during care of patient. I separately evaluated patient for mobley portions of the history and the exam. I was present during the critical portion of medical decision making, and I discussed the case with the resident. I generally agree with the findings and plan. 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 A CTA prior to vascular surgery appointment confirmed that the diameter of her infrarenal AAA was now 5 cm. Recommendation was made by vascular surgery that she undergo embolization of her distal aorta via left brachial approach. She is now status post embolization and was sent to ICU for routine postop monitoring. She is currently comfortable and alert. Conversing appropriately. Denies chest pain, palpitations, shortness of breath, nausea, vomiting, dizziness, headache, numbness, tingling. Reports mild soreness of the surgical site on the left biceps but overall well controlled. Allergies Allergy/AdvReac Type Severity Reaction Status Date / Time diphenhydramine AdvReac Intermediate heart Verified 07/15/21 09:22 racing Home Medications Medication Instructions Recorded Confirmed Type amlodipine 10 mg tablet (Norvasc) 10 mg PO QPM 03/24/18 07/15/21 History atorvastatin 40 mg tablet (Lipitor) 40 mg PO HS 03/24/18 07/15/21 History calcium carbonate 600 mg-vitamin 1 tab PO QAM 03/24/18 07/15/21 History D3 5 mcg (200 unit) capsule (Calcium 600 + D(3)) metoprolol tartrate 50 mg tablet 50 mg PO BID 03/24/18 07/15/21 History (Lopressor) multivitamin 1 tab PO QAM 03/24/18 07/15/21 History omega 7-yzg-wkb-fish oil 1,000 mg 1 tab PO QAM 03/24/18 07/15/21 History (120 mg-180 mg) capsule (Fish Oil) potassium chloride 20 mEq 20 meq PO BID 03/24/18 07/15/21 History tablet,extended release (K-Tab) furosemide 40 mg tablet (Lasix) 40 mg PO BID 08/06/19 07/15/21 History aspirin 81 mg tablet,delayed 81 mg PO QAM #0 tab 08/07/19 07/15/21 Rx release rivaroxaban 20 mg tablet (Xarelto) 20 mg PO HS #0 tab 08/07/19 07/15/21 Rx cilostazol 100 mg tablet 100 mg PO BID 03/06/20 07/15/21 History nitroglycerin 0.4 mg sublingual 0.4 mg SUBLINGUAL Q5M PRN #20 tab 09/02/20 07/15/21 Rx tablet (Nitrostat) Patient History Medical History (Updated 07/15/21 @ 14:54 by Max Castro MD) AAA (abdominal aortic aneurysm) under surveillance by vascular- 4.1cm per most recent imaging Anemia CAD (coronary artery disease) stent (1997) Hyperlipidemia Hypertension controlled, stable per pt Lower GI bleed HISTORY OF FROM HEMORRHOID On anticoagulant therapy Osteoarthritis PAD (peripheral artery disease) Peripheral vascular disease Surgical History H/O breast surgery X 2-BENIGN LUMPECTOMY History of above knee amputation LEFT-08/2015-DOES NOT WEAR PROSTHESIS History of appendectomy History of bilateral tubal ligation History of cardiac cath 1 STENT-15 YRS AGO [facility] History of colonoscopy History of esophagogastroduodenoscopy (EGD) History of incision and drainage left inner thigh 02/08/2020: LMA#4 atraumatic x 1. No issues per anesthesia postop progress note. Hx of arterial bypass of lower limb LEFT LEG 07/13/2019: Grade 2 view, MAC#3, ETT#7.0 atraumatic x 1. No issues per anesthesia postop progress note. Previous back surgery BONE SPUR REMOVED S/P femoral-popliteal bypass surgery Family History Son Family history of diabetes mellitus Other No family history of adverse response to anesthesia Social History Smoking Status: Former smoker Smoking End Date: 2008; Second Hand Exposure: No; Do You Dip or Chew Tobacco: No; Tobacco Cessation Education Requested by Patient: No Hx Alcohol Use: Yes Alcohol type: beer Hx Substance Use: No Preferred Language: Telugu Communication Ability: Effective Circulation Tender Required: No Beliefs That Will Affect Care: None marital status: Current Living Situation: Spouse Current Living Situation Comment: SPOUSE Other Information That Helps Us Care for You: No Feels Safe at Home: Yes Safety Concerns: Feels Safe At This Time Assistive Devices: Oxygen - Continuous Review of Systems Review of Systems: Denies chest pain, palpitations, shortness of breath, cough, nausea, vomiting, abdominal pain, headache, dizziness, numbness, tingling. Physical Exam Physical Exam: GENERAL: A&Ox3. NAD. HEENT: PERRL, EOMI. Moist mucous membranes. CHEST/LUNGS: CTAB A/P. No crackles, wheezes, rales, rhonchi. HEART: RRR. No m/g/r. No carotid bruits. ABDOMEN: NT/ND, soft. BS+ x4 EXTREMITIES: No cyanosis, no clubbing, no edema. Left arm with c/d/i incision on medial aspect of upper arm. Patient has previous left leg AKA. SKIN: Warm and dry. No rashes or lesions. PSYCHIATRIC: Euthymic affect, no SI, no pressured speech, no hallucinations NEUROLOGIC: No FND. Sensation intact. CN II-XII grossly intact. Results & Data Results & Data ([facility]) Vital Signs (Past 12 Hours) Vital Signs Temp Pulse Resp BP Pulse Ox 07/15/21 13:45 36.1 C L 62 12 114/80 96 07/15/21 13:35 58 L 19 115/44 L 92 07/15/21 13:30 67 13 103/42 L 93 07/15/21 13:25 61 17 113/46 L 93 07/15/21 13:20 64 16 112/59 L 93 07/15/21 13:15 62 21 112/59 L 93 07/15/21 13:10 60 24 111/44 L 93 07/15/21 13:05 64 15 113/48 L 92 07/15/21 13:00 64 15 103/50 L 92 07/15/21 12:55 62 15 98/48 L 93 07/15/21 12:50 66 18 88/45 L 95 07/15/21 12:45 75 23 123/69 94 07/15/21 12:40 54 L 23 97/69 L 07/15/21 12:35 88 15 112/69 93 07/15/21 12:32 36.3 C L 95 H 9 L 112/64 93 07/15/21 09:26 37 C 95 H 20 150/86 H 91 Resident Activity Tracking Resident Involvement: Resident Care Provided Care Provided: Adult Hospital Medicine
[2021-07-15 14:43] LABS: Hematocrit (blood only) 39.1 % (37-47); Hemoglobin 13.1 g/dL (12.0-16.0)
[2021-07-15 14:54] LABS: Partial Thromboplastin Ratio 1.2; Partial Thromboplastin Time 32.8 Seconds (21.0-31.0)
[2021-07-15] MEDS ORDERED: ICU PROTOCOL FOR HYPERGLYCEMIA PRN (15:02)
--- NOTE | 2021-07-15 15:15 | Billing Data ---
Date of Service July 15, 2021 Coding Level of Care Code 12112 Inpt Consult Level 4
[2021-07-15] MEDS: cilostazoL 100 MG TAB PO SCH (19:42)
[2021-07-15] MEDS: ceFAZolin 2000MG 2,000 MG/15 ML SYR IV SCH (19:42)
[2021-07-15] MEDS: METOPROLOL TARTRATE 50 MG TAB PO SCH (19:43)
[2021-07-15] MEDS: FUROSEMIDE 40 MG TAB PO SCH (19:43)
[2021-07-15] MEDS: POTASSIUM CHLORIDE CRTAB 20 MEQ TABCR PO SCH (19:44)
[2021-07-15] MEDS ORDERED: ATORVASTATIN 40 MG TAB PO SCH (21:00)
[2021-07-15] MEDS ORDERED: amLODIPine BESYLATE 5 MG TAB PO SCH (21:00)
[2021-07-16] MEDS: ceFAZolin 2000MG 2,000 MG/15 ML SYR IV SCH (02:36)
[2021-07-16 05:44] LABS: Basophils # (auto) 0.02 K/uL (0-0.2); Basophils % (auto) 0.2 %; Hematocrit (blood only) 36.4 % (37-47); Hemoglobin 11.9 g/dL (12.0-16.0); Immature Granulocytes # (auto) 0.01 K/uL (0.00-0.02); Immature Granulocytes % (auto) 0.1 %; Lymphocytes # (auto) 0.82 K/uL (1.2-3.4); Lymphocytes % (auto) 7.2 %; Mean Corpuscular Hemoglobin 31.6 pg (25-34); Mean Corpuscular Hgb Conc 32.7 g/dL (32-36); Mean Corpuscular Volume 96.8 fL (80-100); Mean Platelet Volume 10.4 fL (7.4-10.4); Monocytes # (auto) 1.25 K/uL (0.11-0.59); Neutrophils # (auto) 9.29 K/uL (1.4-6.5); Neutrophils % (auto) 81.5 %; Platelet Count 195 K/uL (130-400); RDW Coefficient of Variation 13.4 % (11.5-14.5); RDW Standard Deviation 47.4 fL (36.4-46.3); Red Blood Count 3.76 M/uL (4.2-5.4); White Blood Count 11.39 K/uL (4.8-10.8)
[2021-07-16 06:04] LABS: BUN Creatinine Ratio 16.4 (10-20); Calcium 8.3 mg/dl (8.5-10.1); Creatinine Clr Calc Pharmacy 72.5 ml/min; Est GFR (African American) 103.4 ml/min; Est GFR (Non-African American) 89.2 ml/min; Magnesium 1.8 mg/dl (1.7-2.4); Phosphorus 2.9 mg/dl (2.5-4.9); Potassium 3.7 mmol/L (3.5-5.1)
[2021-07-16] MEDS: LACTATED RINGER'S 1,000 ML IV SCH (06:39)
--- NOTE | 2021-07-16 08:08 | Critical Care Progress Note ---
Date of Service July 16, 2021 Assessment & Plan (1) HLD (hyperlipidemia): (2) HTN (hypertension): (3) PVD (peripheral vascular disease): (4) Dyslipidemia: (5) AAA (abdominal aortic aneurysm): Plan: Reason Critically Ill: 80-year-old female here with a PMHx significant for extensive PAD who presented with CT findings of AAA at 5cm diameter on routine monitoring and was admitted for AAA embolization by vascular surgery. Neuro CAM ICU: NEGATIVE No acute neurologic concerns Cardiac Infrarenal AAA s/p embolization -Oxycodone as needed for pain -Continue home amlodipine, aspirin, Lipitor, cilostazol, Lopressor, rivaroxaban -Stable overnight without complications - Appropriate for downgrade from intensive care standpoint, DC planning per primary team Peripheral vascular disease -Continue outpatient monitoring of her extensive vascular disease per vascular surgery Hypertension -Continue home antihypertensives as above Dyslipidemia -Continue home atorvastatin, fish oil Respiratory No acute respiratory concerns GI Heart healthy diet Renal/Electrolytes No significant electrolyte derangement. Continue home Lasix 40mg PO BID Continuing home calcium and potassium supplements Replace lytes as needed. No concerns at this time. Endo ICU hyperglycemia protocol Heme Stable H&H. Monitor Anticoagulated on Xarelto ID No concerns for infection at this point. Monitor fever curve. Lines/IV Access - PIVs intact. DVT Prophylaxis Anticoagulated on Xarelto Dispo: Stable for downgrade from ICU Thank you for allowing us to be part of this patient's care. Please refer to Dr. Andrade's documentation for any further recommendations. Admission and Anticipated Discharge Date Admission Date: July 15, 2021 Subjective No acute events overnight. Patient reports feeling well this AM and has no complaints. Hoping to be discharged. Review of Systems Review of Systems: Denies chest pain, palpitations, shortness of breath, cough, nausea, vomiting, abdominal pain, headache, dizziness, numbness, tingling. Physical Exam Physical Exam: GENERAL: A&Ox3. NAD. HEENT: PERRL, EOMI. Moist mucous membranes. CHEST/LUNGS: CTAB A/P. No crackles, wheezes, rales, rhonchi. HEART: RRR. No m/g/r. No carotid bruits. ABDOMEN: NT/ND, soft. BS+ x4 EXTREMITIES: No cyanosis, no clubbing, no edema. Left arm with c/d/i incision on medial aspect of upper arm. Patient has previous left leg AKA. SKIN: Warm and dry. No rashes or lesions. PSYCHIATRIC: Euthymic affect, no SI, no pressured speech, no hallucinations NEUROLOGIC: No FND. Sensation intact. CN II-XII grossly intact. Results & Data Results & Data ([facility]) Vital Signs (Past 12 Hours) Vital Signs Temp Pulse Resp BP Pulse Ox 07/16/21 06:00 62 15 94 07/16/21 05:00 65 14 95 07/16/21 04:50 69 17 94 07/16/21 04:10 62 17 92 07/16/21 04:00 36.9 C 07/16/21 03:10 52 L 14 92 07/16/21 01:55 69 17 116/53 L 92 07/16/21 01:00 20 94 07/16/21 00:00 37.6 C H 62 19 92 07/15/21 23:00 66 19 94 07/15/21 22:00 60 19 93 07/15/21 21:00 65 17 93 Resident Activity Tracking Resident Involvement: Resident Care Provided Care Provided: Adult Hospital Medicine
[2021-07-16] MEDS: METOPROLOL TARTRATE 50 MG TAB PO SCH (08:30)
[2021-07-16] MEDS: FUROSEMIDE 40 MG TAB PO SCH (08:30)
[2021-07-16] MEDS: cilostazoL 100 MG TAB PO SCH (08:30)
[2021-07-16] MEDS: POTASSIUM CHLORIDE CRTAB 20 MEQ TABCR PO SCH (08:31)
[2021-07-16] MEDS: MAGNESIUM SULFATE / D5W 1 GM/100 ML BAG IV SCH ×2 (08:32→10:39)
[2021-07-16] MEDS ORDERED: ASPIRIN 81 MG ECTAB PO SCH (09:00)
[2021-07-16] MEDS ORDERED: OMEGA-3 (PURIFIED FISH OIL) 1 GM CAP PO SCH (09:00)
[2021-07-16] MEDS ORDERED: CALCIUM 600MG + VIT D 400 IU TAB PO SCH (09:00)
[2021-07-16] MEDS ORDERED: MULTIVITAMIN TAB PO SCH (09:00)
--- NOTE | 2021-07-16 09:26 | Billing Data ---
Date of Service July 16, 2021 Coding Level of Care Code 12570 Subseq Hosp Care Lvl 1
--- NOTE | 2021-07-16 10:08 | Critical Care Progress Note ---
Date of Service July 16, 2021 Assessment & Plan Admission and Anticipated Discharge Date Admission Date: July 15, 2021 Supervising Physician Co-Signing Physician Notes Dr. Castro was resident physician during care of patient. I separately evaluated patient for mobley portions of the history and the exam. I was present during the critical portion of medical decision making, and I discussed the case with the resident. I generally agree with the findings and plan. Significant for vasculopathy, able to mobilize in wheelchair as she normally does feels back at baseline still hypoxia requiring small amount of supplemental O2 will defer to vascular surgery on further evaluation versus discharge today. Stable for downgrade out of ICU Results & Data Results & Data ([facility]) Vital Signs (Past 12 Hours) Vital Signs Temp Pulse Resp BP Pulse Ox 07/16/21 09:00 58 L 21 92 07/16/21 08:00 68 14 86 L 07/16/21 07:00 69 21 93 07/16/21 06:45 69 18 92 07/16/21 06:00 62 15 94 07/16/21 05:00 65 14 95 07/16/21 04:50 69 17 94 07/16/21 04:10 62 17 92 07/16/21 04:00 36.9 C 07/16/21 03:10 52 L 14 92 07/16/21 01:55 69 17 116/53 L 92 07/16/21 01:00 20 94 07/16/21 00:00 37.6 C H 62 19 92 07/15/21 23:00 66 19 94 Coding
--- NOTE | 2021-07-16 12:27 | Surgery Progress Note ---
Date of Service July 16, 2021 Assessment & Plan (1) AAA (abdominal aortic aneurysm): Plan: This patient is first day postop after embolization of her infrarenal abdominal aorta. She is doing fine. She has no signs of bowel ischemia. She has no signs of lower extremity ischemia. Her pulse ox on room air runs in the 80s which is normal for her. At this point being that she is not short of breath on room air we will discharge her to self-care at home. We will see her again in 3 weeks for follow-up. Admission and Anticipated Discharge Date Admission Date: July 15, 2021 Subjective Patient is awake and alert. She has no complaints. She denies any abdominal pain she denies any lower extremity pain or stump pain on the left side. Physical Exam Physical Exam: Incision on the left arm is dry and clean. There is surrounding ecchymosis around. She is got a good radial pulse on the left wrist. Her left above-knee amputation stump is warm to touch with no evidence of mottling. Her abdominal exam is benign. There is no pain tenderness or peritoneal signs. Constitutional: WD/WN, vitals as above Results & Data ([facility]) Vital Signs (Past 12 Hours) Vital Signs Temp Pulse Resp BP Pulse Ox 07/16/21 12:00 90 14 91 07/16/21 11:00 65 16 89 L 07/16/21 10:00 61 18 90 07/16/21 09:00 58 L 21 92 07/16/21 08:00 68 14 86 L 07/16/21 07:00 69 21 93 07/16/21 06:45 69 18 92 07/16/21 06:00 62 15 94 07/16/21 05:00 65 14 95 07/16/21 04:50 69 17 94 07/16/21 04:10 62 17 92 07/16/21 04:00 36.9 C 07/16/21 03:10 52 L 14 92 07/16/21 01:55 69 17 116/53 L 92 07/16/21 01:00 20 94
--- NOTE | 2021-07-16 14:24 | Discharge Summary ---
Date of Service July 16, 2021 Admission HPI Per Admitting Provider * Final Report * [facility] OUTPATIENT NOTE Name: PONCHO FLORIAN Patient Number: [id number] : 1940 Date of Service: 07/01/2021 Chief Complaint: _Follow-up for CTA HPI: _Mrs. Florian is an elderly female who presents to Dr. Bolanos vascular surgery clinic today for a follow-up visit after undergoing a CTA of the abdomen and pelvis to evaluate her abdominal aortic aneurysm. On routine surveillance ultrasound, her infrarenal AAA was noted to be over 5 cm in diameter. She was then sent for CTA to confirm this as well as to determine a surgical approach. 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 Patient denies any complaints or concerns at this time, but states she is anxious about a possible procedure. The CTA performed prior to today's appointment does confirm that the diameter of her infrarenal abdominal aortic aneurysm is 5.0 cm. It also redemonstrates her extensive vascular disease in the pelvis. Current Home Meds: (Last Updated 07/01 13:46) amLODIPine (amLODIPine 10 mg oral tablet) 10 mg PO Daily aspirin (aspirin 81 mg oral delayed release tablet) 81 mg PO Daily atorvastatin (atorvastatin 40 mg oral tablet) 40 mg PO Daily calcium carbonate (calcium (as carbonate) 600 mg oral tablet) 600 mg PO cilostazol (cilostazol 100 mg oral tablet) 100 mg PO bid ferrous sulfate (ferrous sulfate 325 mg (65 mg elemental iron) oral delayed release tablet) 325 mg PO Daily furosemide (furosemide 40 mg oral tablet) 40 mg PO bid metoprolol (metoprolol tartrate) 50 mg PO bid multivitamin 1 tab PO Daily omega-3 polyunsaturated fatty acids (Fish Oil oral capsule) 1 cap PO Daily potassium chloride (Klor-Con 10 oral tablet, extended release) 20 mEq PO bid rivaroxaban (Xarelto 20 mg oral tablet) TAKE 1 TABLET IN THE EVENING Allergies and Sensitivities: Antihistamine(rapid heart rate) Past Medical History: Problems: (atherosclerosis) S/P vascular bypass S/P femoral-popliteal bypass surgery (atherosclerosis) Pain at rest AAA (abdominal aortic aneurysm) OBJECTIVE Vitals: Last Updated 07/01/21 13:52 Date Temp BP Location Pulse RR SpO2 Pain 07/01/21 124/60 Left Arm 94 94 0 06/05/21 126/70 Right Arm 06/05/21 130/60 Left Arm 71 94 Vital Signs are the last 3 documented. No Orthostatic Data Available Height and Weight: Last Updated 05/30/20 09:33 Date BMI Wt(kg) Wt(lb) Method Ht(cm) (ft-in) Method 05/30/20 57.1 126 Standing Scale 08/03/17 21.44 54.9 121 Standing Scale 160.02 5-3 Heights and Weights are the last 3 documented. Physical Exam _ Constitutional: In general patient is a healthy-appearing well-nourished well- developed elderly female no distress. She is alert and oriented without any deficits. Her heart is regular, her lungs are decreased but clear. Abdomen is soft nontender with active bowel sounds in all four quadrants. Pulsatile mass is appreciated. Her left leg demonstrates an amputation. Her right leg demonstrates faintly palpable distal pulse and brisk capillary refill. ASSESSMENT: _ PLAN: _ 1 ) _abdominal aortic aneurysm Patient's imaging was also reviewed by Dr. Bolanos, who recommends that she undergo repair of this aneurysm. Due to the severity of her atherosclerotic disease and her completely thrombosed iliac system, we recommend that she undergo embolization of her distal aorta via a left brachial approach in order to seal off her aneurysm. The procedure, risks, benefits and alternatives were discussed with the patient by myself at Dr. Bolanos's request. Patient expresses understanding and agreement to proceed. Dr. Bolanos also answered any further questions in the room with the patient prior to her leaving today. Patient was in the office with her . 2 ) _atherosclerosis Patient's longstanding history of severe atherosclerotic disease is well documented. She will continue surveillance of her bypasses as scheduled. Thank you for letting us participate in the care of this patient. Signature Line Electronic Signature on File Electronically Reviewed/Signed by: Zhanna Bronson PA-C Author Signature Dt/Tm:07/01/2021 04:30 PM [facility] [place] [address], [address] [place]. [id number] Electronically Reviewed/Signed by: Julien J Simoni, MD Cosigner Signature Dt/Tm: 07/02/2021 09:31 AM [employer] Semaj Cisneros [facility] [place] [address], [address] [place] [address] LM Result Type: HVI Outpt Note Date of Service: July 01, 2021 16:22 EST Authorization Status: Final Author or Import Date: CHARBEL Bronson, Zhanna on July 01, 2021 16:30 EST Verified By: MD Luis Miguel, Julien Elder on July 02, 2021 09:31 EST Encounter info: [id number], [facility], Clinic, 07/01/2021 - 07/01/2021 Admission Exam Per Admitting Provider Physical Exam _ Constitutional: In general patient is a healthy-appearing well-nourished well-d eveloped elderly female no distress. She is alert and oriented without any deficits. Her heart is regular, her lungs are decreased but clear. Abdomen is soft nontender with active bowel sounds in all four quadrants. Pulsatile mass is appreciated. Her left leg demonstrates an amputation. Her right leg demonstrates faintly palpable distal pulse and brisk capillary refill. Principal Diagnosis 1. s/p Embolization of distal aorta 2. AAA Discharge Exam Incision on the left arm is dry and clean. There is surrounding ecchymosis around. She is got a good radial pulse on the left wrist. Her left above-knee amputation stump is warm to touch with no evidence of mottling. Her abdominal exam is benign. There is no pain tenderness or peritoneal signs. Constitutional WD/WN, vitals as above Discharge Data Allergies Allergy/AdvReac Type Severity Reaction Status Date / Time diphenhydramine AdvReac Intermediate heart Verified 07/15/21 09:22 racing Consultations 07/15/21 14:34 Consult Hvac Field Service Technician Routine Procedures Performed Operation Date: 07/15/21 11:20 Actual Procedures p Embolization of Distal Aorta (Not Applicable) - Julien Bolanos MD Ordered Studies 07/15/21 07:12 EV Angio Abdomen Aorta Routine Hospital Course (1) AAA (abdominal aortic aneurysm): This patient is first day postop after embolization of her infrarenal abdominal aorta. She is doing fine. She has no signs of bowel ischemia. She has no signs of lower extremity ischemia. Her pulse ox on room air runs in the 80s which is normal for her. At this point being that she is not short of breath on room air we will discharge her to self-care at home. We will see her again in 3 weeks for follow-up. Total Time Total Time Spent Total Time Spent (In Minutes): 0 Discharge Plan Discharge Items Patient Disposition: Home - Self-Care Reason For Visit: Abdominal Aortic Aneurysm Discharge Diagnosis: Abdominal aortic aneurysm, postembolization of abdominal aortic aneurysm Activity: Per Instructions section Bathing Comment: May shower Non-emergency contact: Surgeon Call non-emergency contact if: your temperature is above 101.5, your wound has increased redness and your wound pain has increased Follow-up/Referrals: Arturo Bermudez MD [Primary Care Provider] - Diet: Heart Healthy Addtl Attending Provider Instructions: SPECIAL CARE INSTRUCTIONS: Medications: * Continue to take your medications as directed. Incision/Puncture Site Care: * You will have an incision or puncture in each of your groins. Liquid glue will be used to seal your incisions/puncture site. This will lift off as the incisions/puncture sites heal. * If Liquid glue is not used, there will be small dressings covering your incisions. After you get home, you may remove the dressings and shower - allowing the warm soapy water to run over it. * Be sure to dry the sites well and keep them dry. * DO NOT SOAK IN A TUB/POOL/etc. UNTIL ALL SURGICAL SITES ARE HEALED. DO NOT REMOVE THE GLUE UNTIL THE INCISIONS HEAL. Restrictions: * Limit yourself to yard jockey activity for the first week. * You may walk and go up and down steps. * Avoid excessive bending or movement at the level of the incisions or punctures. Risks and Possible Complications: * Infection/Drainage/Bleeding - Drainage or bleeding from the incisions/puncture site should be minimal. If you have excessive bleeding or drainage, call our office ([phone]) right away. * Pain/Numbness - You may experience some mild pain or soreness at your incision sites. You may also have some numbness around the incisions or into the insides of your thighs. Bruising is normal and should resolve within 2 weeks. * Changes in Appetite or Bowel Habits - Mostly related to anesthesia and pain medication, some patients have reported decreased appetite and/or problems with constipation. These symptoms usually improve over a few weeks. Remembering to take an [id number] stool softener, as directed, will help you to avoid constipation. Call our office and seek emergent treatment if you develop: * Fever or chills * Have a temperature greater than 101 degrees F * Any redness or purulent drainage from your incisions or punctures * Severe abdominal, chest or back pain SKIN IRRITATION: * You may experience some redness and/or swelling in the area where radiation was administered. If any skin irritation occurs, please contact your family physician. You will be receiving a call from the Vascular Surgery Nurse after you are discharged. FOLLOW UP VISIT: It is important for you to keep your follow up appointments with your medical provider. Keep any scheduled doctor appointments. Call [phone] to schedule a follow up appointment if one not already scheduled. Pending Studies at Discharge: No Stand-Alone Forms: My [facility], Smoking Cessation Medications and DC Order Prescriptions: New oxycodone-acetaminophen [Percocet] 5-325 mg tablet 1 tab PO Q8H PRN (Reason: pain) Qty: 7 RF: 0 Continued nitroglycerin [Nitrostat] 0.4 mg tablet, sublingual 0.4 mg Sublingual Q5M PRN (Reason: Chest Pain) Qty: 20 RF: 5 cilostazol 100 mg tablet 100 mg PO BID RF: 0 multivitamin Tablet 1 tab PO QAM RF: 0 atorvastatin [Lipitor] 40 mg Tablet 40 mg PO HS RF: 0 amlodipine [Norvasc] 10 mg Tablet 10 mg PO QPM RF: 0 metoprolol tartrate [Lopressor] 50 mg Tablet 50 mg PO BID RF: 0 Calcium 600 + D(3) 600 mg calcium- 200 unit Capsule 1 tab PO QAM RF: 0 omega 0-qfu-iyj-fish oil [Fish Oil] 1,000 mg (120 mg-180 mg) Capsule 1 tab PO QAM RF: 0 potassium chloride [K-Tab] 20 mEq Tablet Extended Release 20 meq PO BID RF: 0 furosemide [Lasix] 40 mg tablet 40 mg PO BID RF: 0 aspirin 81 mg tablet,delayed release (DR/EC) 81 mg PO QAM Qty: 0 RF: 0 Xarelto 20 mg tablet 20 mg PO HS Qty: 0 RF: 0 Discharge Orders: Discharge Order (Routine); Ordered 07/16/21 Ordered By: Julien Bolanos Admission Data Admit Date/Time: 07/15/21 10:20 Attending Provider: Julien Bolanos Admit Provider: Julien Bolanos Primary Care Provider: Arturo Bermudez Other Providers: Heladio Andrade Other Interventions: Discharge Summary Assessment (RN) Last Done: 07/16/21 13:15
[2021-07-16] MEDS ORDERED: RIVAROXABAN 20 MG TAB PO SCH (21:00)
== END 2021-07-16 13:44 | disposition home or self-care (01) | DRG 269 ==
LOC: ASU 08:49 → 1E 10:20
DX: Z88.8 Allergy status to other drugs, medicaments and biological substances; I25.10 Atherosclerotic heart disease of native coronary artery without angina pectoris; I71.4 Abdominal aortic aneurysm, without rupture; Z95.5 Presence of coronary angioplasty implant and graft; Z79.82 Long term (current) use of aspirin; I74.5 Embolism and thrombosis of iliac artery; E78.5 Hyperlipidemia, unspecified; I73.9 Peripheral vascular disease, unspecified; I10 Essential (primary) hypertension; Z79.01 Long term (current) use of anticoagulants; Z83.3 Family history of diabetes mellitus

== ENCOUNTER 2023-02-20 07:52 | Inpatient (IN) ==
[2023-02-20 08:52] LABS: Basophils # (auto) 0.06 K/uL (0.00-0.20); Basophils % (auto) 0.7 %; Eosinophils # (auto) 0.01 K/uL (0.00-0.50); Eosinophils % (auto) 0.1 %; Hematocrit (blood only) 29.8 % (37.0-47.0); Hemoglobin 9.1 g/dl (12.0-16.0); Immature Granulocytes # (auto) 0.03 K/uL (0.01-0.20); Immature Granulocytes % (auto) 0.3 %; Lymphocytes # (auto) 0.69 K/uL (1.20-3.40); Lymphocytes % (auto) 7.8 %; Mean Corpuscular Hemoglobin 21.3 pg (25.0-34.0); Mean Corpuscular Hgb Conc 30.5 g/dL (32.0-36.0); Mean Corpuscular Volume 69.6 fL (80.0-100.0); Monocytes # (auto) 0.37 K/uL (0.11-0.59); Monocytes % (auto) 4.2 %; Neutrophils # (auto) 7.74 K/uL (1.40-6.50); Neutrophils % (auto) 86.9 %; RDW Coefficient of Variation 18.7 % (11.5-14.5); RDW Standard Deviation 46.4 fL (36.4-46.3); Red Blood Count 4.28 M/uL (4.20-5.40)
[2023-02-20] MEDS ORDERED: NITROGLYCERIN 2% OINTMENT 30GM TUBE EXT STA (08:53)
--- NOTE | 2023-02-20 08:53 | XRay Report ---
XR chest 1V portable CLINICAL HISTORY: Chest pain, nonspecific COMPARISON STUDY: Chest CT September 16, 2018. Chest radiograph July 11, 2021. FINDINGS: Cardiomegaly is unchanged. Prominence of the interstitium is unchanged. No evidence for ove rt pulmonary edema. Linear bibasilar opacities favor atelectasis. There is no consolidation to sugges t pneumonia. IMPRESSION: No acute cardiopulmonary findings. No change in appearance of the chest. ACT 112: Negative or not required by law. Electronically signed by: Jimmie Perales M.D. 02/20/2023 8:51 AM
[2023-02-20 08:55] LABS: Mean Platelet Volume 10.2 fL (9.4-12.4); Platelet Count 301 K/uL (130-400)
[2023-02-20] MEDS ORDERED: SODIUM CHLORIDE 0.9% 1,000 ML IV SCH (09:00)
[2023-02-20 09:03] LABS: Albumin Level 4.4 gm/dl (3.4-5.0); Bilirubin,Total 0.5 mg/dl (0.2-1.0); Calcium 9.5 mg/dl (8.6-10.3); Potassium 3.6 mmol/L (3.5-5.1)
[2023-02-20 09:10] LABS: Albumin Globulin Ratio 1.2 (0.9-2); BUN Creatinine Ratio 24.4 (10-20); Creatinine Clr Calc Pharmacy 44.5 ml/min; Est GFR (African American) 77.8 ml/min; Est GFR (Non-African American) 67.1 ml/min; Globulin 3.8 gm/dl (2.5-4.0); Total Protein 8.2 gm/dl (6.0-8.3)
--- NOTE | 2023-02-20 09:11 | Emergency Department Note ---
Impression & Plan Chest pain ED Provider Note INFORMANT: Patient and family ED PROVIDER(S): Cody Knight MD CHIEF COMPLAINT: Chest pain PLAN: Disposition: Admitted Condition: None Outpatient prescription management: none Referral: MEDICAL DECISION MAKING: Patient presented after experiencing chest pain that was relieved with 3 nitroglycerin. Currently she is pain-free. Patient is anticoagulated. She was given Nitropaste. Her blood oxygen level was mildly low but the patient states that this is typical for her that she frequently runs in the high 80s. Patient had an unremarkable chest x-ray. Her CBC and chemistry panel was unremarkable except for mild anemia. This was slightly worse than prior but not within the transfusion threshold. Patient has not had any recent bleeding or melena/hematochezia. Patient is anticoagulated. Initial cardiac troponin negative. The patient story is very concerning for cardiac chest pain. Consultation was made with the [facility]. Patient was evaluated in the ER admitted for further management. After review of the information above and other included data, I feel the patient requires admission. Triage Nursing notes reviewed and agree them. Vital Signs: reviewed and remarkable for no significant abnormalities Prior /Outside records reviewed: none Differential diagnosis: Cardiac ischemia, aortic dissection, pulmonary embolism, pneumothorax, pneumonia, pericarditis, myocarditis, esophageal rupture, GERD, cholecystitis, pancreatitis, musculoskeletal, as well as other pathologies. Diagnostics, as interpreted by me: ECG: Twelve-lead ECG reveals normal sinus rhythm at [address] elevation or depression. No PACs or PVCs. Cardiac Monitoring: Cardiac monitoring ordered by me: The patient was placed on continuous cardiac monitoring and observed. It revealed a normal sinus rhythm at 90 beats per minute without ectopy or evidence of dysrhythmia. Medical decision rules: Patient is moderate risk by HEART SCORE Imaging studies: chest x-ray. Findings: A chest x-ray was performed and revealed no pneumothorax, effusion, infiltrate, pulmonary edema, free air under the diaphragm, or wide mediastinum. Impression: No acute disease. HPI: The patient is a 82year old female who presents to the Emergency Room with complaints of chest pain. This started 130 this morning and is currently resolved. The patient also notes the following associated symptoms, shortness of breath and diaphoresis. The patient has taken 3 nitro successfully for relieving factors. Current pain is rated as 0/10. Patient has history of c oronary stent as well as peripheral artery disease. She also notes her blood oxygen level typically runs on the low side but is not on home oxygen. Pt denies LOC, headache, fevers, chills, visual changes, neck pain, nausea, vomiting, abdominal pain, back pain, melena, hematochezia, urinary symptoms, numbness, weakness, lymphadenopathy, rash, or other complaints. PAST MEDICAL HISTORY: See Below, CAD, PAD, anticoagulated PAST SURGICAL HISTORY: See Below, left AKA SOCIAL HISTORY: See Below, former smoker HOME MEDICATIONS: See Below ALLERGIES: See Below VITALS: See Below PHYSICAL EXAMINATION: GENERAL: Awake, alert, nontoxic-appearing, in no distress HENT: Normocephalic, atraumatic. Oropharynx unremarkable. EYES: Normal conjunctiva. Sclera non-icteric. NECK: Inspection normal. Non-tender. Supple. No nuchal rigidity. FROM. No masses. RESPIRATORY: Clear to auscultation. No wheezes. No rales. Normal respiratory effort. CARDIAC: Normal rate. Normal rhythm. No murmurs. No rubs. Extremities warm and well perfused. Pulses equal. No JVD. GI: Soft, non-distended. No tenderness to palpation. No rebound or guarding. No masses. RECTAL: Deferred. MUSCULOSKELETAL: Atraumatic. Chest examination reveals no tenderness. The back is symmetrical on inspection without obvious abnormality. There is no CVA tenderness to palpation. No joint edema. LOWER EXTREMITIES: Left AKA. Right lower extremity without edema or calf tenderness NEURO: Normal sensorium. No sensory or motor deficits noted. SKIN: No rash or jaundice noted. Past Med/Surg History Medical History (Updated 02/20/23 @ 10:57 by Gabriela Youngblood PA-C) AAA (abdominal aortic aneurysm) under surveillance by vascular- 4.1cm per most recent imaging Anemia CAD (coronary artery disease) stent (1997) Diabetes mellitus, type II Encounter for pre-operative examination Hyperlipidemia Hypertension controlled, stable per pt Lower GI bleed HISTORY OF FROM HEMORRHOID On anticoagulant therapy Osteoarthritis PAD (peripheral artery disease) Peripheral vascular disease Surgical History H/O breast surgery X 2-BENIGN LUMPECTOMY History of above knee amputation LEFT-08/2015-DOES NOT WEAR PROSTHESIS History of appendectomy History of bilateral tubal ligation History of cardiac cath 1 STENT-15 YRS AGO [facility] History of colonoscopy History of esophagogastroduodenoscopy (EGD) History of incision and drainage left inner thigh 02/08/2020: LMA#4 atraumatic x 1. No issues per anesthesia postop progress note. Hx of arterial bypass of lower limb LEFT LEG 07/13/2019: Grade 2 view, MAC#3, ETT#7.0 atraumatic x 1. No issues per anesthesia postop progress note. Previous back surgery BONE SPUR REMOVED S/P femoral-popliteal bypass surgery Family History Son Family history of diabetes mellitus Other No family history of adverse response to anesthesia Social History (Updated 02/20/23 @ 10:46 by Gabriela Youngblood PA-C) Smoking Status: Former smoker Second Hand Exposure: No; Do You Dip or Chew Tobacco: No; Hx Alcohol Use: Yes Alcohol type: beer Hx Substance Use: No Preferred Language: Swedish Communication Ability: Effective Lining Stitcher Required: No Beliefs That Will Affect Care: None marital status: Current Living Situation: Spouse Current Living Situation Comment: SPOUSE Other Information That Helps Us Care for You: No Feels Safe at Home: Yes Safety Concerns: Feels Safe At This Time Assistive Devices: Wheelchair Allergies Allergies Allergy/AdvReac Type Severity Reaction Status Date / Time diphenhydramine AdvReac Intermediate heart Verified 12/09/22 11:47 racing Home Meds Home Medications Medication Instructions Recorded Confirmed amlodipine 10 mg tablet (Norvasc) 10 mg PO DAILY 03/24/18 02/20/23 atorvastatin 40 mg tablet (Lipitor) 40 mg PO DAILY 03/24/18 02/20/23 calcium carbonate 600 mg-vitamin 1 tab PO QAM 03/24/18 02/20/23 D3 5 mcg (200 unit) capsule (Calcium 600 + D(3)) metoprolol tartrate 50 mg tablet 50 mg PO BID 03/24/18 02/20/23 (Lopressor) multivitamin 1 tab PO QAM 03/24/18 02/20/23 potassium chloride 20 mEq 20 meq PO BID 03/24/18 02/20/23 tablet,extended release (K-Tab) furosemide 40 mg tablet (Lasix) 40 mg PO BID 08/06/19 02/20/23 cilostazol 100 mg tablet 100 mg PO BID 03/06/20 02/20/23 omega 3-ijw-uop-fish oil 300 1 cap PO DAILY 02/20/23 02/20/23 mg-1,000 mg capsule (Fish Oil) Previous Rx's Medication Instructions Recorded aspirin 81 mg tablet,delayed 81 mg PO QAM #0 tabs 08/07/19 release rivaroxaban 20 mg tablet (Xarelto) 20 mg PO HS #0 tabs 08/07/19 nitroglycerin 0.4 mg sublingual 0.4 mg sublingual Q5M PRN Chest 09/02/20 tablet (Nitrostat) Pain #20 tabs Results & Data (ED) Vital Signs Vital Signs - 24 hr 02/20/23 08:02 02/20/23 08:26 02/20/23 08:26 Temperature 36.8 C Temperature Source Temporal Artery Scan Pulse Rate 94 H Pulse Rate [Apical] Respiratory Rate 18 Respiratory Effort / Characteristics Non-Labored Respiratory Depth Normal Blood Pressure 129/81 Blood Pressure [Right Arm] Blood Pressure Mean 97 Blood Pressure Mean [Right Arm] Pulse Oximetry 92 88 L Oxygen Delivery Method Room Air Nasal Cannula Nasal Cannula Oxygen Flow Rate 2 0 Sepsis Recent Fever Within 48 Hours No Sepsis New/Unexplained Change in Mental Status No Sepsis Action Taken by Nursing No Action Required Oxygen Flow Rate - Titration 2 Pulse Oximetry Post Tiitration 92 02/20/23 08:26 02/20/23 08:26 02/20/23 08:29 Temperature Temperature Source Pulse Rate 73 Pulse Rate [Apical] 83 Respiratory Rate 18 Respiratory Effort / Characteristics Non-Labored Respiratory Depth Normal Blood Pressure Blood Pressure [Right Arm] 129/81 Blood Pressure Mean Blood Pressure Mean [Right Arm] 97 Pulse Oximetry 93 93 Oxygen Delivery Method Nasal Cannula Nasal Cannula Oxygen Flow Rate 2 2 Sepsis Recent Fever Within 48 Hours Sepsis New/Unexplained Change in Mental Status Sepsis Action Taken by Nursing Oxygen Flow Rate - Titration Pulse Oximetry Post Tiitration Laboratory Data 02/20/23 08:20 02/20/23 08:20 Lab Results 02/20/23 02/20/23 Range/Units 08:20 08:20 WBC 8.90 (4.8-10.8) K/ul RBC 4.28 (4.20-5.40) M/uL Hgb 9.1 L (12.0-16.0) g/dl Hct 29.8 L (37.0-47.0) % MCV 69.6 L (80.0-100.0) fL MCH 21.3 L (25.0-34.0) pg MCHC 30.5 L (32.0-36.0) g/dL RDW Std Deviation 46.4 H (36.4-46.3) fL RDW Coeff of Jean 18.7 H (11.5-14.5) % Plt Count 301 (130-400) K/uL MPV 10.2 (9.4-12.4) fL Immature Gran % (Auto) 0.3 % Neut % (Auto) 86.9 % Lymph % (Auto) 7.8 % [place] % (Auto) 4.2 % Eos % (Auto) 0.1 % Baso % (Auto) 0.7 % Neut # (Auto) 7.74 H (1.40-6.50) K/uL Lymph # (Auto) 0.69 L (1.20-3.40) K/uL [place] # (Auto) 0.37 (0.11-0.59) K/uL Eos # (Auto) 0.01 (0.00-0.50) K/uL Baso # (Auto) 0.06 (0.00-0.20) K/uL Immature Gran # (Auto) 0.03 (0.01-0.20) K/uL Hypochromasia Present Poikilocytosis Present Anisocytosis Present Sodium 138 (136-145) mmol/L Potassium 3.6 (3.5-5.1) mmol/L Chloride 105 (98-107) mmol/L Carbon Dioxide 23 (21-32) mmol/L Anion Gap 10 (3-11) BUN 20 (6-23) mg/dl Creatinine 0.82 (0.6-1.2) mg/dl Est Cr Clr Drug Dosing 44.5 ml/min Est GFR ( Amer) 77.8 ml/min Est GFR (Non-Af Amer) 67.1 ml/min BUN/Creatinine Ratio 24.4 H (10-20) Glucose 141 H (70-99(Fasting)) mg/dl Calcium 9.5 (8.6-10.3) mg/dl Total Bilirubin 0.5 (0.2-1.0) mg/dl AST 22 (13-39) U/L ALT 17 (7-52) U/L Alkaline Phosphatase 50 (34-104) U/L Troponin I High Sens 13.1 (0-14) pg/ml Total Protein 8.2 (6.0-8.3) gm/dl Albumin 4.4 (3.4-5.0) gm/dl Globulin 3.8 (2.5-4.0) gm/dl Albumin/Globulin Ratio 1.2 (0.9-2) Lipase 41 (11-82) U/L Administered Medications Nitroglycerin (Nitroglycerin 2% Ointment 30gm Tube) 0.5 inch EXT Q6H RAYMOND Stop: 03/22/23 14:59 Last Admin: 02/20/23 15:54 Dose: 0.5 inch Documented By: SHABANA Discontinued Medications Sodium Chloride (Nss 1000ml) 1,000 mls @ 50 mls/hr IV .Q20H RAYMOND Stop: 03/22/23 08:59 Last Infusion: 02/20/23 11:46 Dose: 0 mls/hr Documented By: Admin: 02/20/23 09:08 Dose: 50 mls/hr Documented By: ARELIS Insulin Aspart (Insulin Aspart Per Unit Charge) 0 units SC ACHS RAYMOND Stop: 03/22/23 11:29 Last Admin: 02/20/23 12:05 Dose: Not Given Documented By: SHABANA Nitroglycerin (Nitroglycerin 2% Ointment 30gm Tube) 0.25 inch EXT NOW STA Stop: 02/20/23 08:54 Last Admin: 02/20/23 09:07 Dose: 0.25 inch Documented By: ARELSI Imaging Data Radiologist's Impression: Chest X-Ray 02/20/23 08:14 XR chest 1V portable CLINICAL HISTORY: Chest pain, nonspecific COMPARISON STUDY: Chest CT September 16, 2018. Chest radiograph July 11, 2021. FINDINGS: Cardiomegaly is unchanged. Prominence of the interstitium is unchanged. No evidence for overt pulmonary edema. Linear bibasilar opacities favor atelectasis. There is no consolidation to suggest pneumonia. IMPRESSION: No acute cardiopulmonary findings. No change in appearance of the chest. ACT 112: Negative or not required by law. Electronically signed by: Jimmie Perales M.D. 02/20/2023 8:51 AM Discharge Plan Visit Data Chief Complaint: Chest Pain Stated Complaint: CHEST PAIN ED Provider: Cody Knight Discharge Problem: Chest pain Patient Disposition: Admitted As Inpatient Discharge Instructions Interventions: ED Discharge Assessment Last Done: 02/20/23 10:46
[2023-02-20 09:14] LABS: Troponin I High Sensitivity 13.1 pg/ml (0-14)
[2023-02-20 09:19] LABS: Anisocytosis Present; Hypochromasia Present; Poikilocytosis Present
--- NOTE | 2023-02-20 09:47 | History & Physical Report ---
Date of Service February 20, 2023 Assessment & Plan (1) Chest pain: (2) CAD (coronary artery disease): Plan: Patient is a 82-year-old female with PMH HTN, HLD, PVD s/p left AKA, s/p bilateral iliac artery stenting, s/p femoral to posterior tibial bypass, AAA 5 cm s/p embolization 06/2021, CAD s/p PCI stent to circumflex obtuse marginal artery in 2004, presented to ER with complaint of chest pain awoke her during sleep 01:30 with recurrence throughout the night with associated diaphoresis and left arm paresthesias. Total 3 SL nitro prior to arrival and took 81mg aspirin, Pletal this morning In ER hypoxic on room air 88% up to 96% on 2L, other vitals stable Chest pain free upon ER arrival s/p 3 SL nitro at home. Nitro paste 0.25inch applied in ER EKG: Sinus rhythm, rate 89, nonspecific ST changes per my interpretation Initial high-sensitivity troponin:13 No recent echo for review CP consistent with angina symptoms. R/O ACS. Risk factors: CAD, HTN, HLD, PVD, DM Monitor on tele Repeat EKG in am Will trend troponin Echo Continue aspirin, atorvastatin, metoprolol tartrate, Pletal, Xarelto Continue Nitropaste Lipid panel in am Cardiology consult (3) PVD (peripheral vascular disease): Plan: s/p left AKA, s/p bilateral iliac artery stenting, s/p femoral to posterior tibial bypass (4) Anemia: Plan: H/H: 9.1/29.8, MCV: 69, MCH: 21, MCHC: 30. Hgb: 9.2 on 01/05/2023 and Hgb was 13 in 06/2021. Outpatient iron: 17 on 01/26/2023 Consistent with iron deficiency anemia. History of iron deficiency anemia in 2020 as well EGD on 04/02/2021: Hiatal hernia, normal-appearing stomach and duodenum Colonoscopy 04/02/2021: 5 mm polyp in ascending colon, 4 mm polyp transverse colon, diverticulosis sigmoid colon, internal hemorrhoids Patient denies any melena, hematochezia Hemoccult stool Anemia labs and pending results consider starting iron supplement and GI referral Start Protonix CBC in a.m. (5) Hypoxia: Plan: Noted to be hypoxic on room air high 80s in ER, improved to 96% on 2 L via nasal cannula CXR: No acute infiltrate per my review. Radiology read as Cardiomegaly is unchanged. Prominence of the interstitium is unchanged. No evidence for overt pulmonary edema. Linear bibasilar opacities favor atelectasis. There is no consolidation to suggest pneumonia Patient reports chronic oxygen saturations in high 80s. Not on oxygen supplementation. Denies shortness of breath Prior smoking history. ? Underlying COPD. Suspect chronic hypoxic respiratory failure Monitor oxygen saturations while in hospital, may need to consider two-step and further outpatient work-up that may include PFTs (6) HTN (hypertension): Plan: Stable Continue amlodipine, metoprolol tartrate (7) Diabetes mellitus, type II: Plan: Outpatient A1c: 6.6 on 01/05/2023 Current diet controlled Today random glucose: 141 Monitor BSG's, NovoLog correction sliding scale for now (8) HLD (hyperlipidemia): Plan: Continue atorvastatin (9) AAA (abdominal aortic aneurysm): Plan: AAA 5 cm s/p embolization 06/2021 DVT Prophylaxis On Xarelto Full Code as per discussion with pt Follows with Dr Bermudez for routine care Pt was seen and care coordinated with Dr Pedraza. See addendum I spent a total of 75 minutes reviewing notes, outpatient records, labs, medication, coordinating, documenting and providing care for this patient excluding time spent in the performance of separately billed services. History of Present Illness Chief Complaint: CP Primary Care Provider: Arturo Bermudez MD Patient is a 82-year-old female with PMH HTN, HLD, PVD s/p left AKA, s/p bilateral iliac artery stenting, s/p femoral to posterior tibial bypass, AAA 5 cm s/p embolization 06/2021, CAD s/p PCI stent to circumflex obtuse marginal artery in 2004 presented to ER with complaint of chest pain. History obtained from patient, patient's spouse, and patient and outpatient chart review. Patient states awoke last night from sleep around 01:30 with left sided anterior chest pain. Also states left arm felt "weird, niall numb" and had associated diaphoresis. Denies SOB, dizziness, palpitations. At that time took 1 SL nitro that resolved pain. Went back to bed and later had recurrence of CP and took an additional SL nitro with relief of pain. Reports this morning with CP again and took third nitro with relief of CP. Last took nitro 0700 this morning. States oxygen saturation at baseline is high 80's and not on any supplemental oxygen and denies SOB at baseline. Patient has left leg prosthesis but doesn't like it and doesn't use it, so she uses wheelchair mostly. Prior smoker, quit approximately 20 years ago[address] with Dr[address] Ayala cardiology. Per outpatient chart review in December 2022 had labs that showed anemia and low iron levels. Patient states not taking iron supplement currently. Denies fever/chills, N/V/D/C, melena, hematochezia, HOFFMAN, dizziness, syncope, neck pain, orthopnea, cough, sore throat, abdominal pain, extremity weakness, extremity edema, rashes, urinary symptoms. Allergies Allergy/AdvReac Type Severity Reaction Status Date / Time diphenhydramine AdvReac Intermediate heart Verified 12/09/22 11:47 racing Home Medications Medication Instructions Recorded Confirmed Type amlodipine 10 mg tablet (Norvasc) 10 mg PO DAILY 03/24/18 02/20/23 History atorvastatin 40 mg tablet (Lipitor) 40 mg PO DAILY 03/24/18 02/20/23 History calcium carbonate 600 mg-vitamin 1 tab PO QAM 03/24/18 02/20/23 History D3 5 mcg (200 unit) capsule (Calcium 600 + D(3)) metoprolol tartrate 50 mg tablet 50 mg PO BID 03/24/18 02/20/23 History (Lopressor) multivitamin 1 tab PO QAM 03/24/18 02/20/23 History potassium chloride 20 mEq 20 meq PO BID 03/24/18 02/20/23 History tablet,extended release (K-Tab) furosemide 40 mg tablet (Lasix) 40 mg PO BID 08/06/19 02/20/23 History aspirin 81 mg tablet,delayed 81 mg PO QAM #0 tabs 08/07/19 02/20/23 Rx release rivaroxaban 20 mg tablet (Xarelto) 20 mg PO HS #0 tabs 08/07/19 02/20/23 Rx cilostazol 100 mg tablet 100 mg PO BID 03/06/20 02/20/23 History nitroglycerin 0.4 mg sublingual 0.4 mg sublingual Q5M PRN Chest 09/02/20 02/20/23 Rx tablet (Nitrostat) Pain #20 tabs omega 2-gjn-ywg-fish oil 300 1 cap PO DAILY 02/20/23 02/20/23 History mg-1,000 mg capsule (Fish Oil) Past Med/Surg History Medical History (Updated 02/20/23 @ 10:57 by Gabriela Youngblood PA-C) AAA (abdominal aortic aneurysm) under surveillance by vascular- 4.1cm per most recent imaging Anemia CAD (coronary artery disease) stent (1997) Diabetes mellitus, type II Encounter for pre-operative examination Hyperlipidemia Hypertension controlled, stable per pt Lower GI bleed HISTORY OF FROM HEMORRHOID On anticoagulant therapy Osteoarthritis PAD (peripheral artery disease) Peripheral vascular disease Surgical History H/O breast surgery X 2-BENIGN LUMPECTOMY History of above knee amputation LEFT-08/2015-DOES NOT WEAR PROSTHESIS History of appendectomy History of bilateral tubal ligation History of cardiac cath 1 STENT-15 YRS AGO [facility] History of colonoscopy History of esophagogastroduodenoscopy (EGD) History of incision and drainage left inner thigh 02/08/2020: LMA#4 atraumatic x 1. No issues per anesthesia postop progress note. Hx of arterial bypass of lower limb LEFT LEG 07/13/2019: Grade 2 view, MAC#3, ETT#7.0 atraumatic x 1. No issues per anesthesia postop progress note. Previous back surgery BONE SPUR REMOVED S/P femoral-popliteal bypass surgery Family History Son Family history of diabetes mellitus Other No family history of adverse response to anesthesia Social History (Updated 02/20/23 @ 10:46 by Gabriela Youngblood PA-C) Smoking Status: Former smoker Second Hand Exposure: No; Do You Dip or Chew Tobacco: No; Hx Alcohol Use: Yes Alcohol type: beer Hx Substance Use: No Preferred Language: Sinhala Communication Ability: Effective Elephant Tamer Required: No Beliefs That Will Affect Care: None marital status: Current Living Situation: Spouse Current Living Situation Comment: SPOUSE Other Information That Helps Us Care for You: No Feels Safe at Home: Yes Safety Concerns: Feels Safe At This Time Assistive Devices: Wheelchair Review of Systems Review of Systems: All systems reviewed & are unremarkable except as noted in HPI & below Physical Exam Physical Exam: General: no acute distress, WDWN Head: normocephalic, atraumatic Eyes: conjunctiva non-injected, anicteric ENT: normal inspection external ears, nose, mucous membranes moist Neck: supple, trachea midline Lungs: clear, no respiratory distress, no wheezing/rhonchi/rales CV: distant heart sounds, RRR with occasional ectopy noted, suspect systolic murmur however difficult to auscultate, no JVD, no pretibial edema Abd: normal BS, soft, non-tender Ext: no cyanosis, no calf tenderness; LLE: +above knee amputation Neuro: A&O x 3, no focal deficits noted, normal affect Skin: warm, dry Results & Data Results & Data Vital Signs (Past 12 Hours) Vital Signs Temp Pulse Pulse Resp BP BP Pulse Ox 02/20/23 08:29 73 02/20/23 08:26 93 02/20/23 08:26 83 18 129/81 93 02/20/23 08:26 88 L 02/20/23 08:26 02/20/23 08:02 36.8 C 94 H 18 129/81 92 O2 Del Method O2 Flow Rate 02/20/23 08:29 02/20/23 08:26 Nasal Cannula 2 02/20/23 08:26 Nasal Cannula 2 02/20/23 08:26 Nasal Cannula 0 02/20/23 08:26 Nasal Cannula 2 02/20/23 08:02 Room Air Laboratory Results Short CBC 02/20/23 Range/Units 08:20 WBC 8.90 (4.8-10.8) K/ul Hgb 9.1 L (12.0-16.0) g/dl Hct 29.8 L (37.0-47.0) % Plt Count 301 (130-400) K/uL BMP 02/20/23 08:20 Sodium 138 Potassium 3.6 Chloride 105 Carbon Dioxide 23 BUN 20 Creatinine 0.82 Glucose 141 H Calcium 9.5 Liver Function 02/20/23 Range/Units 08:20 Total Bilirubin 0.5 (0.2-1.0) mg/dl AST 22 (13-39) U/L ALT 17 (7-52) U/L Alkaline Phosphatase 50 (34-104) U/L Albumin 4.4 (3.4-5.0) gm/dl Diagnostic Findings Chest X-Ray 02/20/23 08:14 XR chest 1V portable CLINICAL HISTORY: Chest pain, nonspecific COMPARISON STUDY: Chest CT September 16, 2018. Chest radiograph July 11, 2021. FINDINGS: Cardiomegaly is unchanged. Prominence of the interstitium is unchanged. No evidence for overt pulmonary edema. Linear bibasilar opacities favor atelectasis. There is no consolidation to suggest pneumonia. IMPRESSION: No acute cardiopulmonary findings. No change in appearance of the chest. ACT 112: Negative or not required by law. Electronically signed by: Jimmie Perales M.D. 02/20/2023 8:51 AM Supervising Physician Co-Signing Physician Notes Pt is a 82 y/o F with hx of CAD s/p, Severe PVD s/p L AKA, b/l iliac artery stents, femoral bypass, HTN, AAA, HLD, DMII, Anemia admitted for L sided chest pain that responded nitro. PE: NAD, well developed, NC (1L) Lungs: Good air entry b/l with lower lobe rales Cardiac: normal S1/S2, with systolic murmur Abd: ND,NT, soft MSK: L AKA, no LE edema on the R side Psych: AAOx3, normal affect A/P: CP: -initial trop is neg -VSS: pts SpO2 was ranging from 89-92% on RM - EKG: NSR, T wave inversion on V1 and flattening on V2 -pt is on xarelto -will trend trop -obtain echo, cardiology consult and admit to tele -AM EKG Anemia: -pts outpt hgb last month was 9.1 with low iron concentration -pt denied any bloody or black stool -will get FOBT ---- if + then GI consult -since pt is taking 2 antiplatelet with xarelto will start her on oral protonix for now -trend CBC DMII: -A1C from 12/2022 was 6.6 -not on any home meds -will do ISS while in the hospital Other chronic conditions: Plan as above Agree with A/P by Gabriela Youngblood PA-C
[2023-02-20] MEDS ORDERED: CARBOHYDRATES FOR HYPOGLYCEMIA PO PRN (11:19)
[2023-02-20] MEDS ORDERED: GLUCAGON FOR INJ 1 MG VIAL SQ PRN (11:19)
[2023-02-20] MEDS ORDERED: ACETAMINOPHEN 325 MG TAB PO PRN (11:19)
[2023-02-20] MEDS ORDERED: POLYETHYLENE (MIRALAX) 17 GM PACK PO PRN (11:19)
[2023-02-20] MEDS ORDERED: GLUCOSE 10 TAB/TUBE PO PRN (11:19)
[2023-02-20] MEDS ORDERED: DEXTROSE 50% 50 ML SYRINGE IV PRN (11:19)
[2023-02-20] MEDS ORDERED: GLUCOSE 40% GEL 15 GM TUBE PO PRN (11:19)
[2023-02-20] MEDS ORDERED: INSULIN ASPART PER UNIT CHARGE SC SCH ×2 (11:30→18:00)
--- NOTE | 2023-02-20 11:43 | Cardiology Consultation ---
Date of Consultation February 20, 2023 Assessment & Plan (1) Chest pain: (2) PVD (peripheral vascular disease): (3) CAD (coronary artery disease): Plan 1. Chest pain: Certainly concerning for unstable angina. She could not reliably tell me how long the episodes lasted. It is comforting that her cardiac biomarkers are normal, but for very brief episodes of min on see an elevation. I would agree with nitro paste. Will continue her beta-blockade. We will continue her aspirin. We will transition her from Xarelto to systemic heparinization. For recurrent symptoms she may require more urgent evaluation. In the absence of new symptoms or elevated biomarkers we could consider perfusion imaging although I would have a low threshold for invasive evaluation given her high likelihood of coronary disease. She did present with an element of hypoxia. This raises the potential for pulmonary embolus. Improvement with nitroglycerin would be uncommon. And given her systemic anticoagulation this would seem less likely. We will continue her on anticoagulation in any regard. 2. Coronary artery disease: History of remote PCI to the OM. She can not recall any symptoms associated with that procedure. At this point we will simply proceed as noted above. We will continue her outpatient medical regimen which includes aspirin, metoprolol, cilostazol, amlodipine and high-dose atorvastatin. 3. Peripheral vascular disease: History of right ax fem and fem-pop bypass. S he seems to have good perfusion of the right leg. Also remote history of abdominal aortic aneurysm treated with embolization. History of Present Illness Reason for Consultation: Chest pain Requesting Physician: Rylie Attending Physician: Lizabeth Pedraza MD History of Present Illness The patient is an 82-year-old woman with a history of hypertension, hyperc holesterolemia, peripheral vascular disease (left AKA, 2015; bilateral iliac artery stenting, October 2016; right axillary to femoral, femoral to posterior tibial bypass, June 2019; AAA, Dr. Alexandre), abdominal aortic aneurysm (5 cm, AAA embolization, June 2021), and coronary artery disease (OM PCI, 2004) who presented to the hospital with symptoms of chest pain. Patient states that last evening approximately 1:30 a.m. she developed symptoms of left sternal chest pressure. This was accompanied by some very faint arm discomfort. She describes the symptom as pressure in the precordial area. There was no radiation to the jaw or the back. Perhaps lying down was more comfortable than other positions. She recalled having some nitroglycerin and took a tablet. Over the course of a few minutes her symptoms seemed to resolve and she was able to rest again. She did report some significant diaphoresis during the episodes. This scenario occurred 2 more times over the course of the evening. On both occasions she took nitroglycerin with some relief. In between episodes she states she was chest pain-free. Based on her symptoms her advised her to go to the emergency room. She did not have symptoms at the time of presentation. She is not had any recurrence since the last nitroglycerin she took early this morning. She can not say with certainty how long each episode lasted. She is affectively nonambulatory. She has a left above knee amputation. She is able to transfer from a wheelchair, but does know ambulation. She did not report feeling poorly recently. She denies any symptoms of dyspnea, chest pain, fevers, nausea, viral symptoms or worsening leg pain. Currently resting comfortably. Pain free. Allergies Allergy/AdvReac Type Severity Reaction Status Date / Time diphenhydramine AdvReac Intermediate heart Verified 12/09/22 11:47 racing Home Medications Medication Instructions Recorded Confirmed Type amlodipine 10 mg tablet (Norvasc) 10 mg PO DAILY 03/24/18 02/20/23 History atorvastatin 40 mg tablet (Lipitor) 40 mg PO DAILY 03/24/18 02/20/23 History calcium carbonate 600 mg-vitamin 1 tab PO QAM 03/24/18 02/20/23 History D3 5 mcg (200 unit) capsule (Calcium 600 + D(3)) metoprolol tartrate 50 mg tablet 50 mg PO BID 03/24/18 02/20/23 History (Lopressor) multivitamin 1 tab PO QAM 03/24/18 02/20/23 History potassium chloride 20 mEq 20 meq PO BID 03/24/18 02/20/23 History tablet,extended release (K-Tab) furosemide 40 mg tablet (Lasix) 40 mg PO BID 08/06/19 02/20/23 History aspirin 81 mg tablet,delayed 81 mg PO QAM #0 tabs 08/07/19 02/20/23 Rx release rivaroxaban 20 mg tablet (Xarelto) 20 mg PO HS #0 tabs 08/07/19 02/20/23 Rx cilostazol 100 mg tablet 100 mg PO BID 03/06/20 02/20/23 History nitroglycerin 0.4 mg sublingual 0.4 mg sublingual Q5M PRN Chest 09/02/20 02/20/23 Rx tablet (Nitrostat) Pain #20 tabs omega 3-ttc-gpp-fish oil 300 1 cap PO DAILY 02/20/23 02/20/23 History mg-1,000 mg capsule (Fish Oil) Patient History Medical History (Updated 02/21/23 @ 17:08 by Diaz Gonzalez MD) AAA (abdominal aortic aneurysm) under surveillance by vascular- 4.1cm per most recent imaging Anemia CAD (coronary artery disease) stent (1997) Diabetes mellitus, type II Encounter for pre-operative examination Hyperlipidemia Hypertension controlled, stable per pt Lower GI bleed HISTORY OF FROM HEMORRHOID On anticoagulant therapy Osteoarthritis PAD (peripheral artery disease) Peripheral vascular disease Surgical History H/O breast surgery X 2-BENIGN LUMPECTOMY History of above knee amputation LEFT-08/2015-DOES NOT WEAR PROSTHESIS History of appendectomy History of bilateral tubal ligation History of cardiac cath 1 STENT-15 YRS AGO [facility] History of colonoscopy History of esophagogastroduodenoscopy (EGD) History of incision and drainage left inner thigh 02/08/2020: LMA#4 atraumatic x 1. No issues per anesthesia postop progress note. Hx of arterial bypass of lower limb LEFT LEG 07/13/2019: Grade 2 view, MAC#3, ETT#7.0 atraumatic x 1. No issues per anesthesia postop progress note. Previous back surgery BONE SPUR REMOVED S/P femoral-popliteal bypass surgery Family History Son Family history of diabetes mellitus Other No family history of adverse response to anesthesia Social History (Updated 02/20/23 @ 10:46 by Gabriela Youngblood PA-C) Smoking Status: Former smoker Second Hand Exposure: No; Do You Dip or Chew Tobacco: No; Hx Alcohol Use: Yes Alcohol type: beer Hx Substance Use: No Preferred Language: Icelandic Communication Ability: Effective Wardrobe Image Consultant Required: No Beliefs That Will Affect Care: None marital status: Current Living Situation: Spouse Current Living Situation Comment: SPOUSE Other Information That Helps Us Care for You: No Feels Safe at Home: Yes Safety Concerns: Feels Safe At This Time Assistive Devices: Stair Lift and Wheelchair Review of Systems Review of Systems: Per HPI Physical Exam Physical Exam: She is alert and oriented x3. Mood affect appear normal. She answered all questions appropriately. HEENT: Sclerae are anicteric. Pupils are equal and reactive to light and a ccommodation. Extraocular movements were intact. Neuro: Cranial nerves intact Lungs: Lungs are clear to auscultation bilaterally. There are no rales wheezes or rhonchi. She has normal respiratory effort without use of accessory muscles. There is normal pulmonary excursion. Cardiac: The rhythm was regular. S1 and S2 were normal. There are no murmurs on examination. The PMI was not markedly displaced on palpation. Abdomen: The abdomen was soft and nontender. No abdominal bruit. Extremities: Patient has bilateral radial pulses that are equal in intensity. There is no evidence cyanosis or clubbing. Poor left femoral pulse. Prominent right femoral pulse with bruit. Good perfusion of the right lower extremity but very faint pulses. Skin: There are no rashes noted on examination today. Results & Data Vital Signs (Past 12 Hours) Vital Signs Temp Pulse Pulse Pulse Resp BP BP 02/20/23 11:21 36.9 C 92 H 18 137/87 02/20/23 10:33 96 H 18 127/75 02/20/23 08:29 73 02/20/23 08:26 02/20/23 08:26 83 18 129/81 02/20/23 08:26 02/20/23 08:26 02/20/23 08:02 36.8 C 94 H 18 129/81 Pulse Ox O2 Del Method O2 Flow Rate 02/20/23 11:21 93 Nasal Cannula 1 02/20/23 10:33 96 Nasal Cannula 02/20/23 08:29 02/20/23 08:26 93 Nasal Cannula 2 02/20/23 08:26 93 Nasal Cannula 2 02/20/23 08:26 88 L Nasal Cannula 0 02/20/23 08:26 Nasal Cannula 2 02/20/23 08:02 92 Room Air Laboratory Results Abnormal Lab Results 08/26/23 08/26/23 08:20 08:20 WBC 8.90 RBC 4.28 Hgb 9.1 L Hct 29.8 L MCV 69.6 L MCH 21.3 L MCHC 30.5 L RDW Std Deviation 46.4 H RDW Coeff of Jean 18.7 H Plt Count 301 MPV 10.2 Immature Gran % (Auto) 0.3 Neut % (Auto) 86.9 Lymph % (Auto) 7.8 [place] % (Auto) 4.2 Eos % (Auto) 0.1 Baso % (Auto) 0.7 Neut # (Auto) 7.74 H Lymph # (Auto) 0.69 L [place] # (Auto) 0.37 Eos # (Auto) 0.01 Baso # (Auto) 0.06 Immature Gran # (Auto) 0.03 Hypochromasia Present Poikilocytosis Present Anisocytosis Present Sodium 138 Potassium 3.6 Chloride 105 Carbon Dioxide 23 Anion Gap 10 BUN 20 Creatinine 0.82 Est Cr Clr Drug Dosing 44.5 Est GFR ( Amer) 77.8 Est GFR (Non-Af Amer) 67.1 BUN/Creatinine Ratio 24.4 H Glucose 141 H Calcium 9.5 Total Bilirubin 0.5 AST 22 ALT 17 Alkaline Phosphatase 50 Troponin I High Sens 13.1 Total Protein 8.2 Albumin 4.4 Globulin 3.8 Albumin/Globulin Ratio 1.2 Lipase 41 Diagnostic Findings Chest x-ray obtained in the emergency room did not demonstrate any acute cardiopulmonary process. PG Care Time/CCT Total # of Minutes Spent Total Time Spent with Patient: Total time spent is greater than 50% in coordination of care (as documented) at patient's floor/unit and/or counseling patient: Coding Level of Care Code 23266 INT INP/OBS CARE 3/75MIN Diagnoses Chest pain R07.9 PVD (peripheral vascular disease) I73.9 CAD (coronary artery disease) I25.10
[2023-02-20] MEDS ORDERED: Nursing to Pharmacy Communication SCH ×2 (13:15→16:30)
[2023-02-20 15:17] LABS: INR 1.2 (0.9-1.1); Partial Thromboplastin Time 28.8 Seconds (21.0-31.0); Prothrombin Time 13.5 Seconds (9.0-12.0)
[2023-02-20] MEDS: NITROGLYCERIN 2% OINTMENT 30GM TUBE EXT SCH ×2 (15:54→22:38)
[2023-02-20] MEDS ORDERED: HEPARIN SOD (PORCINE) 1000 UNIT/ML IV ONE ×3 (17:00→17:30)
[2023-02-20] MEDS ORDERED: Heparin IV Adult Wt-Based Low-Dose WITH Bolus Protocol IV STA ×2 (17:00→17:02)
[2023-02-20] MEDS ORDERED: HEPARIN SODIUM/DEXTROSE 25,000 UNITS/500 ML BAG IV SCH ×2 (17:00→17:30)
[2023-02-20] MEDS ORDERED: Heparin IV Adult Wt-Based Standard WITH Bolus Protocol IV ONE (17:00)
[2023-02-20] MEDS: INSULIN ASPART PER UNIT CHARGE SC SCH ×2 (17:12→22:37)
--- NOTE | 2023-02-20 17:25 | XCELERA ---
[id number] \\[id number]___[id number]
--- NOTE | 2023-02-20 17:39 | Electrocardiogram Report ---
Test Reason : Blood Pressure : / mmHG Vent. Rate : 089 BPM Atrial Rate : 089 BPM P-R Int : 194 ms QRS Dur : 076 ms QT Int : 388 ms P-R-T Axes : 053 -02 -28 degrees QTc Int : 472 ms Normal sinus rhythm Nonspecific T wave abnormality Prolonged QT Abnormal ECG When compared with ECG of 11-JUL-2021 11:56, Premature ventricular complexes are no longer Present Nonspecific T wave abnormality now evident in Lateral leads Confirmed by Sekou Esparza ([id number]) on 02/20/2023 5:38:41 PM Referred By: REFERRED SELF Confirmed By:Ranjith Esparza
[2023-02-20] MEDS: HEPARIN SODIUM/DEXTROSE 25,000 UNITS/500 ML BAG IV SCH (17:40)
[2023-02-20] MEDS: FUROSEMIDE 40 MG TAB PO SCH (17:44)
[2023-02-20] MEDS ORDERED: RIVAROXABAN 20 MG TAB PO SCH (21:00)
[2023-02-20] MEDS: cilostazoL 100 MG TAB PO SCH (22:08)
[2023-02-20] MEDS: PANTOprazole 40 MG in SYRINGE 0 ML IV SCH (22:08)
[2023-02-20] MEDS: POTASSIUM CHLORIDE CRTAB 20 MEQ TABCR PO SCH (22:09)
[2023-02-20] MEDS: METOPROLOL TARTRATE 50 MG TAB PO SCH (22:17)
[2023-02-20] MEDS: MELATONIN 3 MG TAB PO PRN (22:53)
[2023-02-21 00:35] LABS: Partial Thromboplastin Ratio 1.6
[2023-02-21 00:39] LABS: Partial Thromboplastin Time 46.4 Seconds (21.0-31.0)
[2023-02-21] MEDS: NITROGLYCERIN 2% OINTMENT 30GM TUBE EXT SCH ×4 (03:57→21:31)
[2023-02-21 08:19] LABS: Basophils # (auto) 0.09 K/uL (0.00-0.20); Basophils % (auto) 1.4 %; Eosinophils # (auto) 0.11 K/uL (0.00-0.50); Eosinophils % (auto) 1.7 %; Hematocrit (blood only) 28.8 % (37.0-47.0); Hemoglobin 8.7 g/dl (12.0-16.0); Immature Granulocytes # (auto) 0.02 K/uL (0.01-0.20); Immature Granulocytes % (auto) 0.3 %; Lymphocytes # (auto) 1.27 K/uL (1.20-3.40); Lymphocytes % (auto) 19.8 %; Mean Corpuscular Hemoglobin 20.9 pg (25.0-34.0); Mean Corpuscular Hgb Conc 30.2 g/dL (32.0-36.0); Mean Corpuscular Volume 69.2 fL (80.0-100.0); Monocytes # (auto) 0.79 K/uL (0.11-0.59); Monocytes % (auto) 12.3 %; Neutrophils # (auto) 4.15 K/uL (1.40-6.50); Neutrophils % (auto) 64.5 %; RDW Coefficient of Variation 18.7 % (11.5-14.5); RDW Standard Deviation 46.1 fL (36.4-46.3); Red Blood Count 4.16 M/uL (4.20-5.40); White Blood Count 6.43 K/ul (4.8-10.8)
[2023-02-21 08:29] LABS: Mean Platelet Volume 10.9 fL (9.4-12.4); Platelet Count 281 K/uL (130-400)
[2023-02-21 08:42] LABS: Partial Thromboplastin Ratio 1.4
[2023-02-21 08:43] LABS: Calcium 8.9 mg/dl (8.6-10.3); Creatinine Clr Calc Pharmacy 36.5 ml/min; Est GFR (African American) 61.2 ml/min; Est GFR (Non-African American) 52.8 ml/min; Partial Thromboplastin Time 40.2 Seconds (21.0-31.0); Potassium 3.1 mmol/L (3.5-5.1)
[2023-02-21 08:48] LABS: Anisocytosis Present; Hypochromasia Present; Polychromasia 1+
[2023-02-21] MEDS: POTASSIUM CHLORIDE CRTAB 20 MEQ TABCR PO SCH ×2 (08:51→21:31)
[2023-02-21] MEDS: ASPIRIN 81 MG ECTAB PO SCH (08:52)
[2023-02-21] MEDS: ATORVASTATIN 40 MG TAB PO SCH (08:52)
[2023-02-21] MEDS: MULTIVITAMIN TAB PO SCH (08:52)
[2023-02-21] MEDS: FUROSEMIDE 40 MG TAB PO SCH ×2 (08:52→17:12)
[2023-02-21] MEDS: cilostazoL 100 MG TAB PO SCH ×2 (08:52→21:31)
[2023-02-21] MEDS: METOPROLOL TARTRATE 50 MG TAB PO SCH ×2 (08:52→21:31)
[2023-02-21] MEDS: PANTOprazole 40 MG in SYRINGE 0 ML IV SCH ×2 (08:52→21:30)
[2023-02-21] MEDS: INSULIN ASPART PER UNIT CHARGE SC SCH ×4 (08:55→21:32)
[2023-02-21] MEDS ORDERED: amLODIPine BESYLATE 5 MG TAB PO SCH (09:00)
[2023-02-21] MEDS ORDERED: PANTOprazole 40 MG TAB PO SCH (09:00)
[2023-02-21 09:01] LABS: Folate (Folic Acid),Ser orPlas > 22.30 ng/ml (>5.38)
[2023-02-21 09:02] LABS: Ferritin 21.9 ng/ml (8-388); Vitamin B12 606 pg/ml (180-914)
[2023-02-21] MEDS ORDERED: POTASSIUM CHLORIDE CRTAB 20 MEQ TABCR PO ONE (10:21)
--- NOTE | 2023-02-21 15:22 | Hospitalist Progress Note ---
Date of Service February 21, 2023 Assessment & Plan (1) Chest pain: (2) CAD (coronary artery disease): Plan: Patient is an 82 yr female with H/O HTN, HLD, PVD s/p left AKA, s/p bilateral iliac artery stenting, s/p femoral to posterior tibial bypass, AAA 5 cm s/p emb olization 06/2021, CAD s/p PCI stent to circumflex obtuse marginal artery in 2004, presented to ER with complaint of chest pain awoke her during sleep 01:30 with recurrence throughout the night with associated diaphoresis and left arm paresthesias. Total 3 SL nitro prior to arrival and took 81mg aspirin, Pletal this morning Chest pain Concern for unstable angina -Troponin elevated but flat -ECHO: Left ventricle systolic function is normal. Mild concentric LVH. Grade 2 diastolic dysfunction. Left ventricle wall motion is normal. Left atrium is mildly dilated. Aortic valve stenosis moderate, without significant aortic valvular stenosis. Mild mitral annular calcification. Mild to moderate mitral regurgitation. Right ventricle systolic pressure is elevated at 30 to 40 mmHg. -CXR:No acute cardiopulmonary findings. No change in appearance of the chest. -EKG: Normal sinus rhythm, nonspecific T wave abnormality. QT prolonged 472. Continue nitroglycerin, IV heparin Continue aspirin, Lipitor, metoprolol Also on Pletal Appreciate cardiology input N.p.o. after midnight for possible cardiac cath tomorrow Hypokalemia Replete electrolytes as needed Monitor (3) PVD (peripheral vascular disease): Plan: s/p left AKA, s/p bilateral iliac artery stenting, s/p femoral to posterior tibial bypass (4) Anemia: Plan: Acute on chronic microcytic anemia Positive fecal occult Outpatient work-up as consistent with iron deficiency anemia H/O iron deficiency anemia in 2020 EGD on 04/02/2021: Hiatal hernia, normal-appearing stomach and duodenum Colonoscopy 04/02/2021: 5 mm polyp in ascending colon, 4 mm polyp transverse colon, diverticulosis sigmoid colon, internal hemorrhoids Patient denies any melena, hematochezia Continue Protonix for now Monitor CBC Started on iron supplements Consider GI evaluation inpatient Vs outpatient (5) Hypoxia: Plan: Hypoxia Possible sleep apnea DD: Underlying COPD H/O Prior Tobacco use Will obtain nocturnal oximetry study Advised sleep study/PFTs as outpatient Continue supplemental oxygen as needed Obtain 2 step Prior to discharge (6) HTN (hypertension): Plan: Continue metoprolol BP relatively low Hold amlodipine while on nitrates (7) Diabetes mellitus, type II: Plan: Outpatient A1c: 6.6 on 01/05/2023 Current diet controlled Continue insulin per protocol Monitor blood glucose levels (8) HLD (hyperlipidemia): Plan: Continue atorvastatin (9) AAA (abdominal aortic aneurysm): Plan: AAA 5 cm s/p embolization 06/2021 DVT Px Xarelto--Held for possible Cath IV Heparin for now Code Status Full Code Admission and Anticipated Discharge Date Admission Date: February 20, 2023 Subjective Patient is seen and examined at bedside Chest pain resolved Denies any dyspnea, dizziness, nausea, vomiting, abdominal pain Saturating well on room air Currently on IV heparin Denies any bleeding issues Review of Systems Review of Systems: All systems reviewed & are unremarkable except as noted in Subjective Physical Exam Physical Exam: Physical Exam: Vitals signs as noted above General Appearance:Thin, Chronic ill appearing, no apparent distress Head: normocephalic, Atraumatic Eyes: normal inspection, EOMI Neck: supple, Trachea midline Respiratory/Chest: Decreased breath sounds, CTA, No accessory muscle use Cardiovascular: S1, S2, No murmur Abdomen/GI:Soft, Non tender, Bowel sounds present Extremities/Musculoskeletal:normal inspection, + Left above knee amputation Neurologic/Psych:AAOX3, grossly no focal neurological deficits Skin: normal color, warm Results & Data Results & Data Vital Signs (Past 12 Hours) Vital Signs Temp Pulse Pulse Pulse Resp BP Pulse Ox 02/21/23 11:41 36.6 C 82 18 105/64 93 02/21/23 07:30 65 02/21/23 07:30 02/21/23 07:29 36.5 C 87 16 121/63 91 02/21/23 03:53 71 16 102/52 L 96 O2 Del Method O2 Flow Rate 02/21/23 11:41 Room Air 02/21/23 07:30 02/21/23 07:30 Nasal Cannula 1 02/21/23 07:29 Room Air 02/21/23 03:53 Oxymask 1.5 Laboratory Results Short CBC 02/21/23 Range/Units 07:43 WBC 6.43 (4.8-10.8) K/ul Hgb 8.7 L (12.0-16.0) g/dl Hct 28.8 L (37.0-47.0) % Plt Count 281 (130-400) K/uL BMP 02/21/23 07:43 Sodium 138 Potassium 3.1 L Chloride 104 Carbon Dioxide 25 BUN 21 Creatinine 1.00 Glucose 113 H Calcium 8.9
[2023-02-21 16:15] LABS: Partial Thromboplastin Ratio 1.4; Partial Thromboplastin Time 38.7 Seconds (21.0-31.0)
--- NOTE | 2023-02-21 17:09 | Cardiology Progress Note ---
Date of Service February 21, 2023 Assessment & Plan (1) Angina at rest: (2) CAD (coronary artery disease): (3) PAD (peripheral artery disease): (4) Dyslipidemia: (5) HTN (hypertension): (6) Elevated troponin: Plan ASSESSMENT/PLAN: 1. Angina: Presentation concerning for unstable angina. High-sensitivity troponin has trended upward and is abnormal. Has known CAD and significant peripheral arterial disease. Remains chest pain-free. Agree with cardiac catheterization, which is tentatively planned for tomorrow. N.p.o. after midnight except for medications. 2. CAD s/p OM PCI (2004 [facility] [place]): Continue aspirin 81 mg daily. Continue beta- sang, calcium channel sang, high intensity statin therapy. Cardiac catheterization likely tomorrow. Risk and benefits were discussed with her in detail and she was made aware that CT surgery is not available at this facility. She is agreeable to proceed. 3. Peripheral arterial disease: Has a history of left lower extremity stent followed by [id number] amputation. Has undergone right sided axillary to femoral artery bypass and femoral to distal popliteal prosthetic bypass. Follows with Dr. Bolanos. Has undergone AAA embolization in 2021 via the left upper extremity. Has chronically occluded iliac arteries. 4. Elevated troponin: Plan as above. 5. Hypertension: Blood pressure has been reasonably controlled. Continue current regimen. 6. Dyslipidemia: LDL reasonably controlled. Excellent HDL. Continue high intensity statin therapy. 7. Disposition: Cardiology will continue to follow. Follow-up with primary occupational health specialist, Dr. Ayala, when ready for discharge. Patient care communicated with primary hospitalist, Dr. Porras. Admission and Anticipated Discharge Date Admission Date: February 20, 2023 Subjective Patient was seen this afternoon. She has not had any further chest discomfort. She described left-sided chest pressure prior to presentation which woke her up from sleep and responded quickly to nitroglycerin. She took nitroglycerin on 4 occasions for recurrent episodes and recalls significant diaphoresis but no radiation of the pain and cannot recall if she had dyspnea. She mostly uses a wheelchair given left sided AKA. She denies shortness of breath but said that she is being tested for sleep apnea. She denies syncope, near syncope, palpitations, edema, or bleeding. She was alone in her hospital room. Physical Exam Physical Exam: Gen.: No acute distress. Alert and oriented. HEENT: Anicteric sclera. Neck: No JVD. Cardiac: No ventricular heave. Regular. Normal S1-S2. 2/6 systolic murmur. No rubs or gallops. Pulmonary: Decreased breath sounds bilaterally, but otherwise clear to auscultation bilaterally without wheezes, rales, or rhonchi. Abdomen: Soft, nontender, nondistended, with normoactive bowel sounds. Extremities: 2+ radial pulses bilaterally. 2+ right femoral pulse. s/p left AKA. No edema or cyanosis. Psychiatric: Affect appears appropriate. Results & Data Vital Signs (Past 12 Hours) Vital Signs Temp Pulse Pulse Resp BP Pulse Ox O2 Del Method 02/21/23 16:27 67 02/21/23 15:27 36.5 C 83 18 113/65 90 Nasal Cannula 02/21/23 11:41 36.6 C 82 18 105/64 93 Room Air 02/21/23 07:30 65 02/21/23 07:30 Nasal Cannula 02/21/23 07:29 36.5 C 87 16 121/63 91 Room Air O2 Flow Rate 02/21/23 16:27 02/21/23 15:27 1.0 02/21/23 11:41 02/21/23 07:30 02/21/23 07:30 1 02/21/23 07:29 Laboratory Results Laboratory Results - last 24 hr 02/20/23 02/20/23 02/20/23 22:22 23:36 23:36 WBC RBC Hgb Hct MCV MCH MCHC RDW Std Deviation RDW Coeff of Jean Plt Count MPV Immature Gran % (Auto) Neut % (Auto) Lymph % (Auto) [place] % (Auto) Eos % (Auto) Baso % (Auto) Neut # (Auto) Lymph # (Auto) [place] # (Auto) Eos # (Auto) Baso # (Auto) Immature Gran # (Auto) Polychromasia Hypochromasia Anisocytosis APTT 46.4 H* PTT Ratio 1.6 Sodium Potassium Chloride Carbon Dioxide Anion Gap BUN Creatinine Est Cr Clr Drug Dosing Est GFR ( Amer) Est GFR (Non-Af Amer) BUN/Creatinine Ratio Glucose POC Glucose 106 H Calcium Iron Transferrin Ferritin Troponin I High Sens 29.8 H Triglycerides Cholesterol LDL Cholesterol, Calc VLDL Cholesterol, Calc HDL Cholesterol Cholesterol/HDL Ratio Vitamin B12 Folate Stool Occult Bld Scrn 02/20/23 02/21/23 02/21/23 Unknown 07:43 07:43 WBC 6.43 RBC 4.16 L Hgb 8.7 L Hct 28.8 L MCV 69.2 L MCH 20.9 L MCHC 30.2 L RDW Std Deviation 46.1 RDW Coeff of Jean 18.7 H Plt Count 281 MPV 10.9 Immature Gran % (Auto) 0.3 Neut % (Auto) 64.5 Lymph % (Auto) 19.8 [place] % (Auto) 12.3 Eos % (Auto) 1.7 Baso % (Auto) 1.4 Neut # (Auto) 4.15 Lymph # (Auto) 1.27 [place] # (Auto) 0.79 H Eos # (Auto) 0.11 Baso # (Auto) 0.09 Immature Gran # (Auto) 0.02 Polychromasia 1+ Hypochromasia Present Anisocytosis Present APTT PTT Ratio Sodium 138 Potassium 3.1 L Chloride 104 Carbon Dioxide 25 Anion Gap 9 BUN 21 Creatinine 1.00 Est Cr Clr Drug Dosing 36.5 Est GFR ( Amer) 61.2 Est GFR (Non-Af Amer) 52.8 BUN/Creatinine Ratio 21.0 H Glucose 113 H POC Glucose Calcium 8.9 Iron 10 L Transferrin 320 Ferritin 21.9 Troponin I High Sens Triglycerides 64 Cholesterol 143 LDL Cholesterol, Calc 57 VLDL Cholesterol, Calc 13 HDL Cholesterol 73 Cholesterol/HDL Ratio 2.0 Vitamin B12 Folate Stool Occult Bld Scrn Positive A 02/21/23 02/21/23 02/21/23 07:43 07:43 07:51 WBC RBC Hgb Hct MCV MCH MCHC RDW Std Deviation RDW Coeff of Jean Plt Count MPV Immature Gran % (Auto) Neut % (Auto) Lymph % (Auto) [place] % (Auto) Eos % (Auto) Baso % (Auto) Neut # (Auto) Lymph # (Auto) [place] # (Auto) Eos # (Auto) Baso # (Auto) Immature Gran # (Auto) Polychromasia Hypochromasia Anisocytosis APTT 40.2 H* PTT Ratio 1.4 Sodium Potassium Chloride Carbon Dioxide Anion Gap BUN Creatinine Est Cr Clr Drug Dosing Est GFR ( Amer) Est GFR (Non-Af Amer) BUN/Creatinine Ratio Glucose POC Glucose 123 H Calcium Iron Transferrin Ferritin Troponin I High Sens Triglycerides Cholesterol LDL Cholesterol, Calc VLDL Cholesterol, Calc HDL Cholesterol Cholesterol/HDL Ratio Vitamin B12 606 Folate > 22.30 Stool Occult Bld Scrn 02/21/23 02/21/23 02/21/23 11:17 13:57 14:59 WBC RBC Hgb Hct MCV MCH MCHC RDW Std Deviation RDW Coeff of Jean Plt Count MPV Immature Gran % (Auto) Neut % (Auto) Lymph % (Auto) [place] % (Auto) Eos % (Auto) Baso % (Auto) Neut # (Auto) Lymph # (Auto) [place] # (Auto) Eos # (Auto) Baso # (Auto) Immature Gran # (Auto) Polychromasia Hypochromasia Anisocytosis APTT 38.7 H PTT Ratio 1.4 Sodium Potassium Chloride Carbon Dioxide Anion Gap BUN Creatinine Est Cr Clr Drug Dosing Est GFR ( Amer) Est GFR (Non-Af Amer) BUN/Creatinine Ratio Glucose POC Glucose 116 H Calcium Iron Transferrin Ferritin Troponin I High Sens 18.5 H D Triglycerides Cholesterol LDL Cholesterol, Calc VLDL Cholesterol, Calc HDL Cholesterol Cholesterol/HDL Ratio Vitamin B12 Folate Stool Occult Bld Scrn 02/21/23 16:41 WBC RBC Hgb Hct MCV MCH MCHC RDW Std Deviation RDW Coeff of Jean Plt Count MPV Immature Gran % (Auto) Neut % (Auto) Lymph % (Auto) [place] % (Auto) Eos % (Auto) Baso % (Auto) Neut # (Auto) Lymph # (Auto) [place] # (Auto) Eos # (Auto) Baso # (Auto) Immature Gran # (Auto) Polychromasia Hypochromasia Anisocytosis APTT PTT Ratio Sodium Potassium Chloride Carbon Dioxide Anion Gap BUN Creatinine Est Cr Clr Drug Dosing Est GFR ( Amer) Est GFR (Non-Af Amer) BUN/Creatinine Ratio Glucose POC Glucose 106 H Calcium Iron Transferrin Ferritin Troponin I High Sens Triglycerides Cholesterol LDL Cholesterol, Calc VLDL Cholesterol, Calc HDL Cholesterol Cholesterol/HDL Ratio Vitamin B12 Folate Stool Occult Bld Scrn Diagnostic Findings Chart reviewed. Vascular surgery note from 09/09/2022 reviewed. Echo report from 02/20/2023 reviewed: Normal LV size, wall motion, systolic function. EF 60 to 65%. Mild LVH. Sclerotic aortic valve without stenosis. Mild to moderate MR. Mild to moderate TR. Mild pulmonary hypertension. ECG personally reviewed from 02/21/2023: Sinus bradycardia 57 bpm. Telemetry personally reviewed: Sinus rhythm. No arrhythmia. Hospitalist note from 02/21/2023 reviewed. Medications Administered Current Inpatient Medications Acetaminophen (Acetaminophen 325 Mg Tab) 650 mg PO Q4H PRN PRN Reason: Pain or Fever Stop: 03/22/23 11:18 Amlodipine Besylate (Amlodipine Besylate 5 Mg Tab) 10 mg PO DAILY [facility] Stop: 03/23/23 08:59 Last Admin: 02/21/23 08:52 Dose: 10 mg Aspirin (Aspirin 81 Mg Ectab) 81 mg PO QAM [facility] Stop: 03/23/23 08:59 Last Admin: 02/21/23 08:52 Dose: 81 mg Atorvastatin Calcium (Atorvastatin 40 Mg Tab) 40 mg PO DAILY [facility] Stop: 03/23/23 08:59 Last Admin: 02/21/23 08:52 Dose: 40 mg Cilostazol (Cilostazol 100 Mg Tab) 100 mg PO BID [facility]MOND Stop: 03/22/23 20:59 Last Admin: 02/21/23 08:52 Dose: 100 mg Dextrose (Dextrose 50% 50 Ml Syringe) 25 - 50 ml IV UD PRN; Protocol PRN Reason: Hypoglycemia Protocol Stop: 03/22/23 11:18 Ferrous Sulfate (Ferrous Sulfate 325 Mg Tab) 325 mg PO QAM [facility] Stop: 03/24/23 08:59 Furosemide (Furosemide 40 Mg Tab) 40 mg PO [id number] [facility] Stop: 03/22/23 16:59 Last Admin: 02/21/23 08:52 Dose: 40 mg Glucagon (Glucagon For Inj 1 Mg Vial) 1 mg SQ UD PRN; Protocol PRN Reason: Hypoglycemia Protocol Stop: 03/22/23 11:18 Glucose (Glucose 10 Tab/Tube) 4 - 8 tab PO UD PRN; Protocol PRN Reason: Hypoglycemia Treatment Stop: 03/22/23 11:18 Glucose (Glucose 40% Gel 15 Gm Tube) 15 - 30 gm PO UD PRN; Protocol PRN Reason: Hypoglycemia Protocol Stop: 03/22/23 11:18 Heparin Sodium/Dextrose (Heparin Sodium/Dextrose) 25,000 units in 500 mls @ 15 mls/hr IV .Q24H [facility]MOND; Protocol Stop: 03/22/23 17:29 Last Titration: 02/21/23 16:19 Dose: 750 units/hr, 15 mls/hr Pantoprazole Sodium 40 mg/ (Syringe) 10 mls @ 5 mls/min IV BID [facility] Stop: 03/22/23 20:59 Last Admin: 02/21/23 08:52 Dose: 5 mls/min Insulin Aspart (Insulin Aspart Per Unit Charge) 0 units SC ACHS [facility] Stop: 03/22/23 16:29 Last Admin: 02/21/23 12:13 Dose: Not Given Melatonin (Melatonin 3 Mg Tab) 3 mg PO HS PRN PRN Reason: Sleep Stop: 03/22/23 22:20 Last Admin: 02/20/23 22:53 Dose: 3 mg Metoprolol Tartrate (Metoprolol Tartrate 50 Mg Tab) 50 mg PO BID [facility] Stop: 03/22/23 20:59 Last Admin: 02/21/23 08:52 Dose: 50 mg Miscellaneous (Carbohydrates For Hypoglycemia ) 15 - 30 gm PO UD PRN PRN Reason: Hypoglycemia Protocol Stop: 03/22/23 11:18 Multivitamins (Multivitamin Tab) 1 tab PO QAM [facility] Stop: 03/23/23 08:59 Last Admin: 02/21/23 08:52 Dose: 1 tab Nitroglycerin (Nitroglycerin 2% Ointment 30gm Tube) 0.5 inch EXT Q6H [facility] Stop: 03/22/23 14:59 Last Admin: 02/21/23 15:55 Dose: 0.5 inch Polyethylene Glycol (Polyethylene (Miralax) 17 Gm Pack) 17 gm PO DAILY PRN PRN Reason: Constipation Stop: 03/22/23 11:18 Potassium Chloride (Potassium Chloride Crtab 20 Meq Tabcr) 20 meq PO BID [facility]MOND Stop: 03/22/23 20:59 Last Admin: 02/21/23 08:51 Dose: 20 meq PG Care Time/CCT Total # of Minutes Spent Total Time Spent with Patient: Total time spent is greater than 50% in coordination of care (as documented) at patient's floor/unit and/or counseling patient: Coding Level of Care Code 33296 SUB INP/OBS CARE 3/50MIN Diagnoses Angina at rest I20.8 CAD (coronary artery disease) I25.10 PAD (peripheral artery disease) I73.9 Dyslipidemia E78.5 HTN (hypertension) I10 Elevated troponin R74.8
[2023-02-21] MEDS: HEPARIN SODIUM/DEXTROSE 25,000 UNITS/500 ML BAG IV SCH (19:12)
--- NOTE | 2023-02-21 21:31 | Electrocardiogram Report ---
Test Reason : Blood Pressure : / mmHG Vent. Rate : 057 BPM Atrial Rate : 057 BPM P-R Int : 168 ms QRS Dur : 072 ms QT Int : 408 ms P-R-T Axes : 057 001 -12 degrees QTc Int : 397 ms Sinus bradycardia Nonspecific ST abnormality When compared with ECG of 20-FEB-2023 08:08, Vent. rate has decreased BY 32 BPM QT has shortened Confirmed by Diaz Gonzalez ([id number]) on 02/21/2023 9:31:15 PM Referred By: REFERRED SELF Confirmed By:Diaz Gonzalez
[2023-02-21] MEDS: MELATONIN 3 MG TAB PO PRN (21:39)
[2023-02-21 23:24] LABS: Partial Thromboplastin Ratio 1.3; Partial Thromboplastin Time 35.9 Seconds (21.0-31.0)
[2023-02-21] MEDS ORDERED: HEPARIN SOD (PORCINE) 1000 UNIT/ML IV ONE (23:45)
[2023-02-22] MEDS: NITROGLYCERIN 2% OINTMENT 30GM TUBE EXT SCH ×3 (03:02→16:05)
[2023-02-22] MEDS: HEPARIN SODIUM/DEXTROSE 25,000 UNITS/500 ML BAG IV SCH (06:00)
[2023-02-22 06:37] LABS: Hematocrit (blood only) 28.6 % (37.0-47.0); Hemoglobin 8.8 g/dl (12.0-16.0); Mean Corpuscular Hgb Conc 30.8 g/dL (32.0-36.0); Mean Corpuscular Volume 68.3 fL (80.0-100.0); Mean Platelet Volume 10.3 fL (9.4-12.4); Platelet Count 281 K/uL (130-400); RDW Coefficient of Variation 18.6 % (11.5-14.5); RDW Standard Deviation 45.1 fL (36.4-46.3); Red Blood Count 4.19 M/uL (4.20-5.40); White Blood Count 7.09 K/ul (4.8-10.8)
[2023-02-22 07:01] LABS: Partial Thromboplastin Time 57.6 Seconds (21.0-31.0)
[2023-02-22 07:15] LABS: BUN Creatinine Ratio 21.7 (10-20); Calcium 8.7 mg/dl (8.6-10.3); Creatinine Clr Calc Pharmacy 31.7 ml/min; Est GFR (African American) 51.7 ml/min; Est GFR (Non-African American) 44.6 ml/min; Magnesium 1.5 mg/dl (1.7-2.4); Potassium 3.4 mmol/L (3.5-5.1)
[2023-02-22] MEDS: cilostazoL 100 MG TAB PO SCH (08:25)
[2023-02-22] MEDS: ASPIRIN 81 MG ECTAB PO SCH (08:25)
[2023-02-22] MEDS: ATORVASTATIN 40 MG TAB PO SCH (08:25)
[2023-02-22] MEDS: FUROSEMIDE 40 MG TAB PO SCH ×2 (08:25→17:25)
[2023-02-22] MEDS: METOPROLOL TARTRATE 50 MG TAB PO SCH (08:25)
[2023-02-22] MEDS: PANTOprazole 40 MG in SYRINGE 0 ML IV SCH (08:26)
[2023-02-22] MEDS: POTASSIUM CHLORIDE CRTAB 20 MEQ TABCR PO SCH (08:26)
[2023-02-22] MEDS: MULTIVITAMIN TAB PO SCH (08:26)
[2023-02-22] MEDS: INSULIN ASPART PER UNIT CHARGE SC SCH ×3 (08:58→17:22)
[2023-02-22] MEDS ORDERED: FERROUS SULFATE 325 MG TAB PO SCH (09:00)
[2023-02-22] MEDS ORDERED: MAGNESIUM SULFATE / D5W 1 GM/100 ML BAG IV ONE (09:29)
[2023-02-22] MEDS ORDERED: POTASSIUM CHLORIDE CRTAB 20 MEQ TABCR PO ONE (09:30)
--- NOTE | 2023-02-22 10:55 | Pre Anesthesia Assessment ---
Date of Service February 22, 2023 Pre Sedation Assessment Vital Signs Temp Pulse Pulse Pulse Resp BP BP 02/22/23 07:45 88 02/22/23 07:45 02/22/23 07:21 36.7 C 87 16 105/66 02/22/23 02:56 36.5 C 73 16 106/60 02/22/23 02:32 78 02/21/23 22:04 66 02/21/23 23:30 81 02/21/23 23:04 99/51 L 02/21/23 22:58 36.7 C 65 18 88/47 L 02/21/23 22:39 73 02/21/23 20:00 02/21/23 21:20 68 16 114/65 02/21/23 19:00 36.7 C 90 18 111/71 02/21/23 16:27 67 02/21/23 15:27 36.5 C 83 18 113/65 02/21/23 11:41 36.6 C 82 18 105/64 Pulse Ox O2 Del Method O2 Flow Rate 02/22/23 07:45 02/22/23 07:45 Nasal Cannula 1 02/22/23 07:21 95 Nasal Cannula 1 02/22/23 02:56 95 Nasal Cannula 1 02/22/23 02:32 90 Nasal Cannula 1 02/21/23 22:04 02/21/23 23:30 93 Nasal Cannula 1 02/21/23 23:04 02/21/23 22:58 92 Nasal Cannula 02/21/23 22:39 93 Room Air 02/21/23 20:00 Nasal Cannula 1 02/21/23 21:20 95 Nasal Cannula 1 02/21/23 19:00 93 Nasal Cannula 1 02/21/23 16:27 02/21/23 15:27 90 Nasal Cannula 1.0 02/21/23 11:41 93 Room Air Cardiovascular + regular rate Respiratory normal respiratory effort, lungs clear to auscultation Pre-Sedation Airway Assessment Smoking Status: Former smoker Hx Sleep Apnea: No Mallampati Class: III ASA: ASA3 NPO Status Date of Last Intake of Fluids: 02/22/23 Time of Last Intake of Fluids: 09:00 Last Oral Intake of Fluids Comment: sips with meds Date of Last Intake of Solid Food: 02/21/23 Time of Last Intake of Solid Foods: 18:00 Procedure Planning Contraindications for Sedation: none Current Medications Reviewed: Yes Notes The planned sedation has been discussed with the patient. Informed Consent was obtained. I have identified the patient, determined the appropriateness of sedation and have assessed the patient immediately prior to the procedure. All medicine(s) and interventions are by my order.
[2023-02-22] MEDS ORDERED: fentaNYL citrate PF 100 MCG/2 ML VIAL ONE (12:13)
[2023-02-22] MEDS ORDERED: HEPARIN (PORCINE) 1000 UNIT/ML 10 ML (CATH LAB USE ONLY) ONE (12:13)
[2023-02-22] MEDS ORDERED: MIDAZOLAM HCL 1 MG/ML 2ML VIAL ONE (12:13)
[2023-02-22] MEDS ORDERED: niCARdipine HCL INJ 2.5 MG/ML 10 ML AMP ONE (12:13)
[2023-02-22] MEDS ORDERED: NITROGLYCERIN/D5W 100MCG/ML 20ML SYR ONE (12:14)
--- NOTE | 2023-02-22 13:48 | Post Operative Brief Note ---
Cardiology Brief Post Op Date of Surgery February 22, 2023 Pre & Post Diagnosis Operation Date: 02/22/23 11:00 <No data on this case meets the specified criteria> Procedure cardiac cath Fireman Diaz Gonzalez MD Resident Medical Officer [facility] Wrecker Estimated Blood Loss 25 Findings See Below Formal report to follow: No severe CAD. Patent OM stent.
[2023-02-22] MEDS ORDERED: SODIUM CHLORIDE 0.9% 1,000 ML IV SCH (14:00)
--- NOTE | 2023-02-22 14:06 | Post Anesthesia Assessment ---
Date of Service February 22, 2023 Post Sedation Assessment Vital Signs Temp Pulse Pulse Pulse Resp BP BP 02/22/23 13:45 88 18 144/70 H 02/22/23 11:54 80 18 135/76 02/22/23 11:27 36.6 C 59 L 18 131/68 02/22/23 07:45 88 02/22/23 07:45 02/22/23 07:21 36.7 C 87 16 02/22/23 02:56 36.5 C 73 16 106/60 02/22/23 02:32 78 02/21/23 22:04 66 02/21/23 23:30 81 02/21/23 23:04 99/51 L 02/21/23 22:58 36.7 C 65 18 02/21/23 22:39 73 02/21/23 20:00 02/21/23 21:20 68 16 02/21/23 19:00 36.7 C 90 18 02/21/23 16:27 67 02/21/23 15:27 36.5 C 83 18 BP Pulse Ox O2 Del Method O2 Flow Rate 02/22/23 13:45 90 Room Air 02/22/23 11:54 92 Nasal Cannula 2 02/22/23 11:27 93 Nasal Cannula 2.0 02/22/23 07:45 02/22/23 07:45 Nasal Cannula 1 02/22/23 07:21 105/66 95 Nasal Cannula 1 02/22/23 02:56 95 Nasal Cannula 1 02/22/23 02:32 90 Nasal Cannula 1 02/21/23 22:04 02/21/23 23:30 93 Nasal Cannula 1 02/21/23 23:04 02/21/23 22:58 88/47 L 92 Nasal Cannula 02/21/23 22:39 93 Room Air 02/21/23 20:00 Nasal Cannula 1 02/21/23 21:20 114/65 95 Nasal Cannula 1 02/21/23 19:00 111/71 93 Nasal Cannula 1 02/21/23 16:27 02/21/23 15:27 113/65 90 Nasal Cannula 1.0 Recovery Score Activity: Moves 4 extremities Respiration: Deep Breath/Cough Circulation: +/-20% PreAnes Value Consciousness: Fully Awake Oxygen Saturation: > 92% On Room Air Post Anesthesia Score: 10 Discharge Sedation Level of Care: Fast Track Phase II Post Sedation Plan On clinical assessment, the patient appears to have tolerated the sedation without complications. Patient is recovering as anticipated. Patient will continue to be monitored by nursing and may be discharged when sedation discharge criteria are met per below protocol. Upon Completions of procedure up to 15 minutes continue every 5 minute vital signs and the P.A.R. score; then discharge to a Phase I or Fast Track to Phase II per the following guidelines: * Discharge Patient to appropriate Phase II area if PAR is 8 or greater or return to pre- procedure baseline. The post - procedure orders will be as directed. * If PAR score is less than 8 or not return to pre-procedure baseline then patient will follow Phase I monitoring till PAR is reached for Phase II. The Phase I may be done in procedure room or may call to secure a Phase I area. * If naloxone or flumazenil are used for reversal, hold in Phase I for continued monitoring from when last reversal dose was given for a minimum of 60 minutes or longer pending the nurse and/or physician discretion of patient condition before discharge to Phase II. Please call the Sedation Physician to re-evaluate and complete post-note for discharge to Phase II area. Do NOT discharge from procedure sedation or Phase 1 until post- sedation evaluation note is complete by procedure /sedation MD Sedation Discharge Instructions to be given to the patient at discharge to home.
--- NOTE | 2023-02-22 14:36 | Cardiac Catheterization ---
[facility] Data: Steel Chipper Cardiac Status Clinical evaluation leading to the procedure CAD Presenation: Unstable angina Anginal Classification: CCS IV Heart Failure: No Cardiogenic Shock within 24 Hours: No Cardiac Arrest within 24 Hours: No Imaging Studies Past 6 Months: Yes Stress Studies Past 6 Months: No Coronary Anatomy Dominant: Right Diagnostic Physicians Name: Diaz Gonzalez MD Status: Elective Closure Device Percutaneous Entry Location: Radial Closure Device: Radial Band Recommendations: Management Recommendatons Cardiac Cath Procedure Full Procedure Date February 22, 2023 Pre-Procedure Diagnosis Pre-Procedure Diagnosis: Angina and CAD AUC Score AUC Score: 7 Post-Procedure Diagnosis Post-Procedure Diagnosis: Moderate CAD and Normal Intracardiac Pressures Procedure(s) Performed Procedure(s) Performed: Coronary Angiography and Left Heart Cath Occupational Therapy Asst Diaz Gonzalez MD Export Traffic Department Manager(s) Buffing Turner And Counter Estimated Blood Loss Estimated Blood Loss: <30 ml Medication(s) Medication(s): Fentanyl, Heparin, Lidocaine 1%, Nicardipine and Versed Summary of Findings Procedures: 1. Coronary angiography 2. Left heart catheterization 3. Moderate sedation Indication: Mrs. Florian is a very pleasant 82-year-old female with a history significant for CAD s/p OM stent, peripheral arterial disease, distal aorta embolization, dyslipidemia, type 2 diabetes, and hypertension. She presented with rest pain concerning for angina and mildly elevated troponins. Coronary angiography: 1. Left main: Short vessel. No significant CAD. 2. Left anterior descending: Large caliber vessel that wraps around the apex. Luminal irregularities within the proximal LAD. Small D1, large D2, D3. CHERIE-3 flow throughout the LAD. 3. Circumflex: Large caliber vessel. Mid circumflex 40 to 50%. Distally, circumflex courses along the AV groove as a small caliber vessel. Large branching OM1. OM stent patent. CHERIE-3 flow throughout the circumflex. 4. Right coronary artery: RCA is dominant. Mid RCA 20 to 30%. Distal RCA 20 to 30%. No significant CAD visualized within the PL and PDA branches. Left heart catheterization: 1. Left ventriculography was not performed. 2. No aortic stenosis. Peak to peak gradient across the aortic valve was < 5 mmHg. 3. LVEDP 5 mmHg. Moderate sedation: 1. Sedation start time: 12:39 PM 2. Sedation end time: 1:34 PM Access site: 1. Left radial artery, without known complication. Procedure notes: 1. Tortuosity noted within the left upper extremity arterial system, with calcifications noted in the aortic arch/left subclavian origin. Manipulation of the catheters was difficult at times. 2. A 5 Japanese JL 3.5 diagnostic catheter was used to engage the left main, but preferentially subselected the LAD with limited visualization of the circumflex. 3. A 4 Japanese and 5 Japanese AL-1 diagnostic catheter was unable to be sufficiently advanced for coronary angiography. 4. A 5 Japanese Golf diagnostic catheter was used to engage the left main, with adequate visualization of the circumflex. 5. The 5 Japanese Golf diagnostic catheter was also used to selectively engage the RCA. A 5 Japanese JR4 diagnostic catheter was initially used, but did not successfully engage the RCA and manipulation of the catheter was limited. Impression: 1. Nonobstructive CAD. 2. Patent OM stent. 3. No significant aortic stenosis. 4. Low left-sided filling pressure. Plan: 1. Risk factor modification. 2. Medical therapy. Hemodynamics Rest Ao:: 136/44 Final Ao: 139/63 LV: 139/4/5 Recommendations Recommendations: Management Recommendatons Specimens Specimens: None Radiation Exposure (mGy) 1506 mGy. Fluoro time 21.2 min. Contrast (mls) 100 ml Procedural Complication(s) None Disposition PCU I attest to the content of the Intraoperative Record and any orders documented therein. Any exceptions are noted below. [facility] [place] Card Cath Procedure Codes Cardiac Catheterization Procedure 1: Cardiovascular Cath Procedures: 45496 Coronaries and LHC (+/-LV) Moderate Sedation Procedure 1: Sedation/Anesthesia: 34650 Mod Sedation by the same physician;Init15 Min Child Age 5 & Up Procedure 2: Sedation/Anesthesia: 40588 Mod Sedation by the same physician; Ea Additio [id number] Minutes Procedure 3: Sedation/Anesthesia: 03347 Mod Sedation by the same physician; Ea [id number] Minutes Procedure 4: Sedation/Anesthesia: 16497 Mod Sedation by the same physician; Ea [id number] Minutes PG Care Time/CCT Total # of Minutes Spent Total Time Spent with Patient: Total time spent is greater than 50% in coordination of care (as documented) at patient's floor/unit and/or counseling patient:
--- NOTE | 2023-02-22 15:14 | Cardiology Progress Note ---
Date of Service February 22, 2023 Assessment & Plan (1) Angina at rest: (2) CAD (coronary artery disease): (3) Dyslipidemia: (4) HTN (hypertension): (5) PAD (peripheral artery disease): Plan ASSESSMENT/PLAN: 1. Angina: Her initial chest pain was concerning for unstable angina. No severe CAD noted on cardiac catheterization to account for rest pain. She has reported relief with nitrate therapy. Can replace nitroglycerin paste with isosorbide mononitrate 30 mg daily. 2. CAD s/p OM PCI [place]2004 [facility] [place] Nonobstructive CAD suggested on 02/22/2023 cath. Continue aspirin 81 mg daily. Continue beta-sang, calcium channel sang, high intensity statin therapy. Start isosorbide mononitrate in place of nitroglycerin paste as above. 3. Peripheral arterial disease: Has a history of left lower extremity stent followed by [id number] amputation. Has undergone right sided axillary to femoral artery bypass and femoral to distal popliteal prosthetic bypass. Follows with Dr. Bolanos. Has undergone AAA embolization in 2021 via the left upper extremity. Has chronically occluded iliac arteries. 4. Hypertension: Blood pressure has been reasonably controlled. Continue current regimen. 5. Dyslipidemia: LDL reasonably controlled. Excellent HDL. Continue high in tensity statin therapy. 6. Disposition: Once hemostasis achieved and radial cath site care completed by nursing staff per protocol, can be discharged from a cardiac perspective this evening. Follow-up with primary cytotechnologist supervisor, Dr. Ayala, in approximately 1 week. Chronically on anticoagulation therapy for noncardiac indication. Can resume heparin drip following hemostasis and can be transitioned back to her Xarelto as per primary hospitalist service. Patient care communicated with primary hospitalist, Dr. Porras. Admission and Anticipated Discharge Date Admission Date: February 20, 2023 Subjective She denies any further chest pain. She denies shortness of breath, syncope, near syncope, palpitations, edema, or bleeding. She underwent cardiac catheterization today which demonstrated nonobstructive CAD. Her was present for today's conversation. Physical Exam Physical Exam: Gen.: No acute distress. Alert and oriented. HEENT: Anicteric sclera. Neck: No JVD. Cardiac: No ventricular heave. Regular. Normal S1-S2. 2/6 systolic murmur. No rubs or gallops. Pulmonary: Decreased breath sounds bilaterally, but otherwise clear to auscultation bilaterally without wheezes, rales, or rhonchi. Abdomen: Soft, nontender, nondistended, with normoactive bowel sounds. Extremities: 2+ radial pulses bilaterally. s/p left AKA. No edema or cyanosis. Results & Data Vital Signs (Past 12 Hours) Vital Signs Temp Pulse Pulse Resp BP BP BP 02/22/23 14:52 36.5 C 86 18 132/76 02/22/23 14:26 36.5 C 73 18 108/62 02/22/23 14:11 36.6 C 86 18 112/68 02/22/23 13:45 88 18 144/70 H 02/22/23 11:54 80 18 135/76 02/22/23 11:27 36.6 C 59 L 18 131/68 02/22/23 07:45 88 02/22/23 07:45 02/22/23 07:21 36.7 C 87 16 105/66 Pulse Ox O2 Del Method O2 Flow Rate 02/22/23 14:52 93 Nasal Cannula 1 02/22/23 14:26 95 Nasal Cannula 2 02/22/23 14:11 94 Nasal Cannula 3 02/22/23 13:45 90 Room Air 02/22/23 11:54 92 Nasal Cannula 2 02/22/23 11:27 93 Nasal Cannula 2.0 02/22/23 07:45 02/22/23 07:45 Nasal Cannula 1 02/22/23 07:21 95 Nasal Cannula 1 Laboratory Results Laboratory Results - last 24 hr 02/21/23 02/21/23 02/21/23 14:59 16:41 20:06 WBC RBC Hgb Hct MCV MCH MCHC RDW Std Deviation RDW Coeff of Jean Plt Count MPV APTT 38.7 H PTT Ratio 1.4 Activ Coag Time Kaolin Sodium Potassium Chloride Carbon Dioxide Anion Gap BUN Creatinine Est Cr Clr Drug Dosing Est GFR ( Amer) Est GFR (Non-Af Amer) BUN/Creatinine Ratio Glucose POC Glucose 106 H 117 H Calcium Magnesium 02/21/23 02/22/23 02/22/23 22:16 00:01 06:02 WBC 7.09 RBC 4.19 L Hgb 8.8 L Hct 28.6 L MCV 68.3 L MCH 21.0 L MCHC 30.8 L RDW Std Deviation 45.1 RDW Coeff of Jean 18.6 H Plt Count 281 MPV 10.3 APTT 35.9 H PTT Ratio 1.3 Activ Coag Time Kaolin Sodium Potassium Chloride Carbon Dioxide Anion Gap BUN Creatinine Est Cr Clr Drug Dosing Est GFR ( Amer) Est GFR (Non-Af Amer) BUN/Creatinine Ratio Glucose POC Glucose 115 H Calcium Magnesium 02/22/23 02/22/23 02/22/23 06:02 06:02 06:17 WBC RBC Hgb Hct MCV MCH MCHC RDW Std Deviation RDW Coeff of Jean Plt Count MPV APTT 57.6 H* PTT Ratio 2.0 Activ Coag Time Kaolin Sodium 138 Potassium 3.4 L Chloride 105 Carbon Dioxide 25 Anion Gap 8 BUN 25 H Creatinine 1.15 Est Cr Clr Drug Dosing 31.7 Est GFR ( Amer) 51.7 Est GFR (Non-Af Amer) 44.6 BUN/Creatinine Ratio 21.7 H Glucose 106 H POC Glucose 120 H Calcium 8.7 Magnesium 1.5 L 02/22/23 02/22/23 11:24 12:49 WBC RBC Hgb Hct MCV MCH MCHC RDW Std Deviation RDW Coeff of Jean Plt Count MPV APTT PTT Ratio Activ Coag Time Kaolin 161 H Sodium Potassium Chloride Carbon Dioxide Anion Gap BUN Creatinine Est Cr Clr Drug Dosing Est GFR ( Amer) Est GFR (Non-Af Amer) BUN/Creatinine Ratio Glucose POC Glucose 128 H Calcium Magnesium Diagnostic Findings Telemetry personally reviewed: Sinus rhythm. No arrhythmia. Labs reviewed: Stable renal function, mild hypokalemia and mild hypomagnesemia. Chronic anemia. Cardiac Cath 02/22/2023: Coronary angiography: 1. Left main: Short vessel. No significant CAD. 2. Left anterior descending: Large caliber vessel that wraps around the apex. Luminal irregularities within the proximal LAD. Small D1, large D2, D3. CHERIE-3 flow throughout the LAD. 3. Circumflex: Large caliber vessel. Mid circumflex 40 to 50%. Distally, circumflex courses along the AV groove as a small caliber vessel. Large branching OM1. OM stent patent. CHERIE-3 flow throughout the circumflex. 4. Right coronary artery: RCA is dominant. Mid RCA 20 to 30%. Distal RCA 20 to 30%. No significant CAD visualized within the PL and PDA branches. Left heart catheterization: 1. Left ventriculography was not performed. 2. No aortic stenosis. Peak to peak gradient across the aortic valve was < 5 mmHg. 3. LVEDP 5 mmHg. Medications Administered Current Inpatient Medications Acetaminophen (Acetaminophen 325 Mg Tab) 650 mg PO Q4H PRN PRN Reason: Pain or Fever Stop: 03/22/23 11:18 Amlodipine Besylate (Amlodipine Besylate 5 Mg Tab) 10 mg PO DAILY [facility] Stop: 03/23/23 08:59 Last Admin: 02/21/23 08:52 Dose: 10 mg Aspirin (Aspirin 81 Mg Ectab) 81 mg PO QAM [facility] Stop: 03/23/23 08:59 Last Admin: 02/22/23 08:25 Dose: 81 mg Atorvastatin Calcium (Atorvastatin 40 Mg Tab) 40 mg PO DAILY [facility] Stop: 03/23/23 08:59 Last Admin: 02/22/23 08:25 Dose: 40 mg Cilostazol (Cilostazol 100 Mg Tab) 100 mg PO BID [facility] Stop: 03/22/23 20:59 Last Admin: 02/22/23 08:25 Dose: 100 mg Dextrose (Dextrose 50% 50 Ml Syringe) 25 - 50 ml IV UD PRN; Protocol PRN Reason: Hypoglycemia Protocol Stop: 03/22/23 11:18 Ferrous Sulfate (Ferrous Sulfate 325 Mg Tab) 325 mg PO QAM [facility] Stop: 03/24/23 08:59 Last Admin: 02/22/23 08:25 Dose: 325 mg Furosemide (Furosemide 40 Mg Tab) 40 mg PO [id number] [facility] Stop: 03/22/23 16:59 Last Admin: 02/22/23 08:25 Dose: 40 mg Glucagon (Glucagon For Inj 1 Mg Vial) 1 mg SQ UD PRN; Protocol PRN Reason: Hypoglycemia Protocol Stop: 03/22/23 11:18 Glucose (Glucose 10 Tab/Tube) 4 - 8 tab PO UD PRN; Protocol PRN Reason: Hypoglycemia Treatment Stop: 03/22/23 11:18 Glucose (Glucose 40% Gel 15 Gm Tube) 15 - 30 gm PO UD PRN; Protocol PRN Reason: Hypoglycemia Protocol Stop: 03/22/23 11:18 Heparin Sodium/Dextrose (Heparin Sodium/Dextrose) 25,000 units in 500 mls @ 17 mls/hr IV .Q24H RAYMOND; Protocol Stop: 03/22/23 17:29 Last Titration: 02/22/23 06:59 Dose: 850 units/hr, 17 mls/hr Pantoprazole Sodium 40 mg/ (Syringe) 10 mls @ 5 mls/min IV BID RAYMOND Stop: 03/22/23 20:59 Last Admin: 02/22/23 08:26 Dose: 5 mls/min Sodium Chloride (Nss 1000ml) 1,000 mls @ 125 mls/hr IV .Q8H RAYMOND Stop: 02/22/23 18:00 Last Admin: 02/22/23 14:29 Dose: 125 mls/hr Insulin Aspart (Insulin Aspart Per Unit Charge) 0 units SC ACHS RAYMOND Stop: 03/22/23 16:29 Last Admin: 02/22/23 12:03 Dose: Not Given Melatonin (Melatonin 3 Mg Tab) 3 mg PO HS PRN PRN Reason: Sleep Stop: 03/22/23 22:20 Last Admin: 02/21/23 21:39 Dose: 3 mg Metoprolol Tartrate (Metoprolol Tartrate 50 Mg Tab) 50 mg PO BID RAYMOND Stop: 03/22/23 20:59 Last Admin: 02/22/23 08:25 Dose: 50 mg Miscellaneous (Carbohydrates For Hypoglycemia ) 15 - 30 gm PO UD PRN PRN Reason: Hypoglycemia Protocol Stop: 03/22/23 11:18 Multivitamins (Multivitamin Tab) 1 tab PO QAM RAYMOND Stop: 03/23/23 08:59 Last Admin: 02/22/23 08:26 Dose: 1 tab Nitroglycerin (Nitroglycerin 2% Ointment 30gm Tube) 0.5 inch EXT Q6H RAYMOND Stop: 03/22/23 14:59 Last Admin: 02/22/23 09:01 Dose: 0.5 inch Polyethylene Glycol (Polyethylene (Miralax) 17 Gm Pack) 17 gm PO DAILY PRN PRN Reason: Constipation Stop: 03/22/23 11:18 Potassium Chloride (Potassium Chloride Crtab 20 Meq Tabcr) 20 meq PO BID [facility] Stop: 03/22/23 20:59 Last Admin: 02/22/23 08:26 Dose: 20 meq PG Care Time/CCT Total # of Minutes Spent Total Time Spent with Patient: Total time spent is greater than 50% in coordination of care (as documented) at patient's floor/unit and/or counseling patient: Coding Level of Care Code 75061 SUB INP/OBS CARE 350MIN Diagnoses Angina at rest I20.8 CAD (coronary artery disease) I25.10 Dyslipidemia E78.5 HTN (hypertension) I10 PAD (peripheral artery disease) I73.9
[2023-02-22] MEDS ORDERED: IRON SUCROSE 200 MG in 0.9 % SODIUM CHLORIDE 100 ML IV ONE (15:22)
--- NOTE | 2023-02-22 15:52 | Hospitalist Progress Note ---
Date of Service February 22, 2023 Assessment & Plan (1) Chest pain: (2) CAD (coronary artery disease): Plan: Patient is an 82 yr female with H/O HTN, HLD, PVD s/p left AKA, s/p bilateral iliac artery stenting, s/p femoral to posterior tibial bypass, AAA 5 cm s/p emb olization 06/2021, CAD s/p PCI stent to circumflex obtuse marginal artery in 2004, presented to ER with complaint of chest pain awoke her during sleep 01:30 with recurrence throughout the night with associated diaphoresis and left arm paresthesias. Total 3 SL nitro prior to arrival and took 81mg aspirin, Pletal this morning Chest pain Concern for unstable angina -Troponin elevated but flat -ECHO: Left ventricle systolic function is normal. Mild concentric LVH. Grade 2 diastolic dysfunction. Left ventricle wall motion is normal. Left atrium is mildly dilated. Aortic valve stenosis moderate, without significant aortic valvular stenosis. Mild mitral annular calcification. Mild to moderate mitral regurgitation. Right ventricle systolic pressure is elevated at 30 to 40 mmHg. -CXR:No acute cardiopulmonary findings. No change in appearance of the chest. -EKG: Normal sinus rhythm, nonspecific T wave abnormality. QT prolonged 472. --S/P Cardiac Cath: Nonobstructive coronary disease. Patent OM stent. No significant aortic stenosis. Low left-sided filling pressure. --Nitroglycerin, IV heparin--- discontinued Continue aspirin, Lipitor, metoprolol Also on Pletal Appreciate cardiology input Start on isosorbide mononitrate 30 mg daily Needs follow-up with cardiology in 1 week upon discharge Hypokalemia Replete electrolytes as needed Monitor (3) PVD (peripheral vascular disease): Plan: s/p left AKA, s/p bilateral iliac artery stenting, s/p femoral to posterior tibial bypass (4) Anemia: Plan: Acute on chronic microcytic anemia Positive fecal occult Outpatient work-up as consistent with iron deficiency anemia H/O iron deficiency anemia in 2020 EGD on 04/02/2021: Hiatal hernia, normal-appearing stomach and duodenum Colonoscopy 04/02/2021: 5 mm polyp in ascending colon, 4 mm polyp transverse colon, diverticulosis sigmoid colon, internal hemorrhoids Patient denies any melena, hematochezia Continue Protonix for now Monitor CBC Started on iron supplements Advised to follow-up with fruit dumper as outpatient Will give IV Venofer today (5) Hypoxia: Plan: Nocturnal hypoxia Possible sleep apnea DD: Underlying COPD H/O Prior Tobacco use Will obtain nocturnal oximetry study Continue supplemental oxygen as needed Oximetry study reviewed: Advised for supplemental oxygen at bedtime Advised sleep study/PFTs as outpatient (6) HTN (hypertension): Plan: Continue metoprolol BP relatively low Amlodipine discontinued Started on isosorbide as above (7) Diabetes mellitus, type II: Plan: Outpatient A1c: 6.6 on 01/05/2023 Current diet controlled Continue insulin per protocol Monitor blood glucose levels (8) HLD (hyperlipidemia): Plan: Continue atorvastatin (9) AAA (abdominal aortic aneurysm): Plan: AAA 5 cm s/p embolization 06/2021 DVT Px Xarelto resume IV Heparin discontinued Code Status Full Code Disposition Home Admission and Anticipated Discharge Date Admission Date: February 20, 2023 Subjective Patient is seen and examined at bedside States feeling well today Offers no complaints Denies any dyspnea, dizziness, nausea, vomiting, abdominal pain Had Cardiac Cath today Discussed with cardiology today Patient eager to get discharged Review of Systems Review of Systems: All systems reviewed & are unremarkable except as noted in Subjective Physical Exam Physical Exam: Physical Exam: Vitals signs as noted above General Appearance:Thin, Chronic ill appearing, no apparent distress Head: normocephalic, Atraumatic Eyes: normal inspection, EOMI Neck: supple, Trachea midline Respiratory/Chest: Decreased breath sounds, CTA, No accessory muscle use Cardiovascular: S1, S2, No murmur Abdomen/GI:Soft, Non tender, Bowel sounds present Extremities/Musculoskeletal:normal inspection, + Left above knee amputation Neurologic/Psych:AAOX3, grossly no focal neurological deficits Skin: normal color, warm Results & Data Results & Data Vital Signs (Past 12 Hours) Vital Signs Temp Pulse Pulse Resp BP BP BP 02/22/23 14:52 36.5 C 86 18 132/76 02/22/23 14:26 36.5 C 73 18 108/62 02/22/23 14:11 36.6 C 86 18 112/68 02/22/23 13:45 88 18 144/70 H 02/22/23 11:54 80 18 135/76 02/22/23 11:27 36.6 C 59 L 18 131/68 02/22/23 07:45 88 02/22/23 07:45 02/22/23 07:21 36.7 C 87 16 105/66 Pulse Ox O2 Del Method O2 Flow Rate 02/22/23 14:52 93 Nasal Cannula 1 02/22/23 14:26 95 Nasal Cannula 2 02/22/23 14:11 94 Nasal Cannula 3 02/22/23 13:45 90 Room Air 02/22/23 11:54 92 Nasal Cannula 2 02/22/23 11:27 93 Nasal Cannula 2.0 02/22/23 07:45 02/22/23 07:45 Nasal Cannula 1 02/22/23 07:21 95 Nasal Cannula 1 Laboratory Results Short CBC 02/22/23 Range/Units 06:02 WBC 7.09 (4.8-10.8) K/ul Hgb 8.8 L (12.0-16.0) g/dl Hct 28.6 L (37.0-47.0) % Plt Count 281 (130-400) K/uL BMP 02/22/23 06:02 Sodium 138 Potassium 3.4 L Chloride 105 Carbon Dioxide 25 BUN 25 H Creatinine 1.15 Glucose 106 H Calcium 8.7
--- NOTE | 2023-02-22 16:57 | Discharge Summary ---
Date of Service February 22, 2023 Admission HPI Per Admitting Provider Patient is a 82-year-old female with PMH HTN, HLD, PVD s/p left AKA, s/p bilateral iliac artery stenting, s/p femoral to posterior tibial bypass, AAA 5 cm s/p embolization 06/2021, CAD s/p PCI stent to circumflex obtuse marginal artery in 2004 presented to ER with complaint of chest pain. History obtained from patient, patient's spouse, and patient and outpatient chart review. Patient states awoke last night from sleep around 01:30 with left sided anterior chest pain. Also states left arm felt "weird, niall numb" and had associated diaphoresis. Denies SOB, dizziness, palpitations. At that time took 1 SL nitro t hat resolved pain. Went back to bed and later had recurrence of CP and took an additional SL nitro with relief of pain. Reports this morning with CP again and took third nitro with relief of CP. Last took nitro 0700 this morning. States oxygen saturation at baseline is high 80's and not on any supplemental oxygen and denies SOB at baseline. Patient has left leg prosthesis but doesn't like it and doesn't use it, so she uses wheelchair mostly. Prior smoker, quit approximately 20 years ago. Follow[address] with Dr. Ayala cardiology. Per outpatient chart review in December 2022 had labs that showed anemia and low iron levels. Patient states not taking iron supplement currently. Denies fever/chills, N/V/D/C, melena, hematochezia, HOFFMAN, dizziness, syncope, neck pain, orthopnea, cough, sore throat, abdominal pain, extremity weakness, extremity edema, rashes, urinary symptoms. Admission Exam Per Admitting Provider General: no acute distress, WDWN Head: normocephalic, atraumatic Eyes: conjunctiva non-injected, anicteric ENT: normal inspection external ears, nose, mucous membranes moist Neck: supple, trachea midline Lungs: clear, no respiratory distress, no wheezing/rhonchi/rales CV: distant heart sounds, RRR with occasional ectopy noted, suspect systolic murmur however difficult to auscultate, no JVD, no pretibial edema Abd: normal BS, soft, non-tender Ext: no cyanosis, no calf tenderness; LLE: +above knee amputation Neuro: A&O x 3, no focal deficits noted, normal affect Skin: warm, dry Principal Diagnosis Chest pain Nonobstructive coronary artery disease Acute on chronic microcytic anemia Nocturnal hypoxia Discharge Data Allergies Allergy/AdvReac Type Severity Reaction Status Date / Time diphenhydramine AdvReac Intermediate heart Verified 12/09/22 11:47 racing Consultations 02/20/23 09:40 ED Decision to Admit Stat 02/20/23 10:33 Consult Cardiology Routine Procedures Performed Operation Date: 02/22/23 11:00 Actual Procedures p Cath, Left with Cors and Vent - Diaz Gonzalez MD s Cineradiography w/Routine Exam - Diaz Gonzalez MD Laboratory Results WBC 7.09 K/ul (4.8-10.8) 02/22/23 06:02 RBC 4.19 M/uL (4.20-5.40) L 02/22/23 06:02 Hgb 8.8 g/dl (12.0-16.0) L 02/22/23 06:02 Hct 28.6 % (37.0-47.0) L 02/22/23 06:02 MCV 68.3 fL (80.0-100.0) L 02/22/23 06:02 MCH 21.0 pg (25.0-34.0) L 02/22/23 06:02 MCHC 30.8 g/dL (32.0-36.0) L 02/22/23 06:02 RDW Std Deviation 45.1 fL (36.4-46.3) 02/22/23 06:02 RDW Coeff of Jean 18.6 % (11.5-14.5) H 02/22/23 06:02 Plt Count 281 K/uL (130-400) 02/22/23 06:02 MPV 10.3 fL (9.4-12.4) 02/22/23 06:02 Immature Gran % (Auto) 0.3 % 02/21/23 07:43 Neut % (Auto) 64.5 % 02/21/23 07:43 Lymph % (Auto) 19.8 % 02/21/23 07:43 [place] % (Auto) 12.3 % 02/21/23 07:43 Eos % (Auto) 1.7 % 02/21/23 07:43 Baso % (Auto) 1.4 % 02/21/23 07:43 Neut # (Auto) 4.15 K/uL (1.40-6.50) 02/21/23 07:43 Lymph # (Auto) 1.27 K/uL (1.20-3.40) 02/21/23 07:43 [place] # (Auto) 0.79 K/uL (0.11-0.59) H 02/21/23 07:43 Eos # (Auto) 0.11 K/uL (0.00-0.50) 02/21/23 07:43 Baso # (Auto) 0.09 K/uL (0.00-0.20) 02/21/23 07:43 Immature Gran # (Auto) 0.02 K/uL (0.01-0.20) 02/21/23 07:43 Polychromasia 1+ 02/21/23 07:43 Hypochromasia Present 02/21/23 07:43 Poikilocytosis Present 02/20/23 08:20 Anisocytosis Present 02/21/23 07:43 PT 13.5 Seconds (9.0-12.0) H 02/20/23 14:36 INR 1.2 (0.9-1.1) H 02/20/23 14:36 APTT 57.6 Seconds (21.0-31.0) H* 02/22/23 06:02 PTT Ratio 2.0 02/22/23 06:02 Activ Coag Time Kaolin 161 SECONDS (94-140) H 02/22/23 12:49 Sodium 138 mmol/L (136-145) 02/22/23 06:02 Potassium 3.4 mmol/L (3.5-5.1) L 02/22/23 06:02 Chloride 105 mmol/L (98-107) 02/22/23 06:02 Carbon Dioxide 25 mmol/L (21-32) 02/22/23 06:02 Anion Gap 8 (3-11) 02/22/23 06:02 BUN 25 mg/dl (6-23) H 02/22/23 06:02 Creatinine 1.15 mg/dl (0.6-1.2) 02/22/23 06:02 Est Cr Clr Drug Dosing 31.7 ml/min 02/22/23 06:02 Est GFR ( Amer) 51.7 ml/min 02/22/23 06:02 Est GFR (Non-Af Amer) 44.6 ml/min 02/22/23 06:02 BUN/Creatinine Ratio 21.7 (10-20) H 02/22/23 06:02 Glucose 106 mg/dl (70-99(Fasting)) H 02/22/23 06:02 POC Glucose 157 mg/dl (70-99) H 02/22/23 16:25 Calcium 8.7 mg/dl (8.6-10.3) 02/22/23 06:02 Magnesium 1.5 mg/dl (1.7-2.4) L 02/22/23 06:02 Iron 10 mcg/dl (35-150) L 02/21/23 07:43 Transferrin 320 mg/dl (200-360) 02/21/23 07:43 Ferritin 21.9 ng/ml (8-388) 02/21/23 07:43 Total Bilirubin 0.5 mg/dl (0.2-1.0) 02/20/23 08:20 AST 22 U/L (13-39) 02/20/23 08:20 ALT 17 U/L (7-52) 02/20/23 08:20 Alkaline Phosphatase 50 U/L (34-104) 02/20/23 08:20 Troponin I High Sens 18.5 pg/ml (0-14) H D 02/21/23 13:57 Total Protein 8.2 gm/dl (6.0-8.3) 02/20/23 08:20 Albumin 4.4 gm/dl (3.4-5.0) 02/20/23 08:20 Globulin 3.8 gm/dl (2.5-4.0) 02/20/23 08:20 Albumin/Globulin Ratio 1.2 (0.9-2) 02/20/23 08:20 Triglycerides 64 mg/dl (0-150) 02/21/23 07:43 Cholesterol 143 mg/dl (0-200) 02/21/23 07:43 LDL Cholesterol, Calc 57 mg/dl 02/21/23 07:43 VLDL Cholesterol, Calc 13 mg/dl (0-30) 02/21/23 07:43 HDL Cholesterol 73 mg/dl 02/21/23 07:43 Cholesterol/HDL Ratio 2.0 (0-5) 02/21/23 07:43 Lipase 41 U/L (11-82) 02/20/23 08:20 Vitamin B12 606 pg/ml (180-914) 02/21/23 07:43 Folate > 22.30 ng/ml (>5.38) 02/21/23 07:43 Stool Occult Bld Scrn Positive (Negative) A 02/20/23 Unknown SARS-CoV-2 (PCR) NEGATIVE (Negative) 02/20/23 Unknown Impressions Chest X-Ray 02/20/23 08:14 XR chest 1V portable CLINICAL HISTORY: Chest pain, nonspecific COMPARISON STUDY: Chest CT September 16, 2018. Chest radiograph July 11, 2021. FINDINGS: Cardiomegaly is unchanged. Prominence of the interstitium is unc hanged. No evidence for overt pulmonary edema. Linear bibasilar opacities favor atelectasis. There is no consolidation to suggest pneumonia. IMPRESSION: No acute cardiopulmonary findings. No change in appearance of the chest. ACT 112: Negative or not required by law. Electronically signed by: Jimmie Perales M.D. 02/20/2023 8:51 AM Ordered Studies 02/22/23 10:23 CL Cath Imgs for PACS use only Routine Hospital Course (1) Chest pain: (2) CAD (coronary artery disease): Patient is an 82 yr female with H/O HTN, HLD, PVD s/p left AKA, s/p bilateral iliac artery stenting, s/p femoral to posterior tibial bypass, AAA 5 cm s/p embolization 06/2021, CAD s/p PCI stent to circumflex obtuse marginal artery in 2004, presented to ER with complaint of chest pain awoke her during sleep 01:30 with recurrence throughout the night with associated diaphoresis and left arm paresthesias. Total 3 SL nitro prior to arrival and took 81mg aspirin, Pletal this morning Chest pain Concern for unstable angina -Troponin elevated but flat -ECHO: Left ventricle systolic function is normal. Mild concentric LVH. Grade 2 diastolic dysfunction. Left ventricle wall motion is normal. Left atrium is mildly dilated. Aortic valve stenosis moderate, without significant aortic rajesh vular stenosis. Mild mitral annular calcification. Mild to moderate mitral regurgitation. Right ventricle systolic pressure is elevated at 30 to 40 mmHg. -CXR:No acute cardiopulmonary findings. No change in appearance of the chest. -EKG: Normal sinus rhythm, nonspecific T wave abnormality. QT prolonged 472. --S/P Cardiac Cath: Nonobstructive coronary disease. Patent OM stent. No si gnificant aortic stenosis. Low left-sided filling pressure. --Nitroglycerin, IV heparin--- discontinued Continue aspirin, Lipitor, metoprolol Also on Pletal Appreciate cardiology input Start on isosorbide mononitrate 30 mg daily Needs follow-up with cardiology in 1 week upon discharge Hypokalemia Replete electrolytes as needed Monitor (3) PVD (peripheral vascular disease): s/p left AKA, s/p bilateral iliac artery stenting, s/p femoral to posterior tibial bypass (4) Anemia: Acute on chronic microcytic anemia Positive fecal occult Outpatient work-up as consistent with iron deficiency anemia H/O iron deficiency anemia in 2020 EGD on 04/02/2021: Hiatal hernia, normal-appearing stomach and duodenum Colonoscopy 04/02/2021: 5 mm polyp in ascending colon, 4 mm polyp transverse colon, diverticulosis sigmoid colon, internal hemorrhoids Patient denies any melena, hematochezia Continue Protonix for now Monitor CBC Started on iron supplements Advised to follow-up with motor inspection mechanic as outpatient Will give IV Venofer today (5) Hypoxia: Nocturnal hypoxia Possible sleep apnea DD: Underlying COPD H/O Prior Tobacco use Will obtain nocturnal oximetry study Continue supplemental oxygen as needed Oximetry study reviewed: Advised for supplemental oxygen at bedtime Advised sleep study/PFTs as outpatient (6) HTN (hypertension): Continue metoprolol BP relatively low Amlodipine discontinued Started on isosorbide as above (7) Diabetes mellitus, type II: Outpatient A1c: 6.6 on 01/05/2023 Current diet controlled Continue insulin per protocol Monitor blood glucose levels (8) HLD (hyperlipidemia): Continue atorvastatin (9) AAA (abdominal aortic aneurysm): AAA 5 cm s/p embolization 06/2021 DVT Px Xarelto resume IV Heparin discontinued Code Status Full Code Disposition Home Total Time Total Time Spent Total Time Spent (In Minutes): 65 minutes Discharge Plan Discharge Items Patient Disposition: Home - Self-Care Reason For Visit: CP Discharge Diagnosis: Chest pain Nonobstructive coronary artery disease Acute on chronic microcytic anemia Nocturnal hypoxia Activity: Per Instructions section Exercise/Sports: Wait until after follow-up appointment Non-emergency contact: Primary Care Provider and Banking Manager Call non-emergency contact if: you have any medication questions, your symptoms worsen, your pain is concerning for you and you have a fever Follow-up/Referrals: Arturo Bermudez MD [Primary Care Provider] - (Date & Time 02/26/2023 11:20 AM Provider Arturo Bermudez MD [facility] ) Diet: Carb Consistent or DM2 and Heart Healthy Addtl Attending Provider Instructions: Follow-up with your primary care physician Dr. Bermudez on 02/26/2023 11:20 AM Follow-up with your high school librarian Dr. Ayala next week as recommended by your high school librarian Consider following with your motor inspection mechanic for anemia--possible EGD/colonoscopy as outpatient --- Use 2 L supplemental oxygen at bedtime as recommended. --- Obtain pulmonary function test and sleep study as outpatient as you could have underlying COPD/sleep apnea. Medication changes: --Your amlodipine is discontinued due to low blood pressure --Start taking isosorbide mononitrate 30 mg daily as recommended by your high school librarian --Start taking iron supplements as advised --Monitor your blood pressure regularly at home. Discuss with your physician for further medication adjustments as needed Seek immediate medical attention if your symptoms reoccur or worsen Please take all medications as instructed on discharge list below. Please call if you have any questions or problems. You can reach a [facility] hospitalist on duty at [facility] 24 hours a day by calling [phone] Addtl Afterschool Babysitter Provider Instructions: ACTIVITY RECOMMENDATIONS: Excess manipulation of the wrist should be avoided for the next 24-48 hours. * No lifting over 2 pounds (approximately a 1/2 gallon of milk) with the util ized arm for 24 hours. * No strenuous activity such as bowling or tennis for 3 days. * Keep the site of the procedure covered with a bandage for 24 hours. *You may shower the day after the procedure. Do not take a tub bath or submerge the puncture site in water for the next 3 days. *Do not operate any motorized equipment for 3 days. SPECIAL CARE INSTRUCTIONS: The site may be slightly bruised and sore following your procedure. Should any of the following occur, contact the DrCarmel who performed your procedure. 1. Redness/inflammation, swelling, chills, or fever, or colored drainage at procedure site within 3-7 days after your procedure. 2. Coldness, discoloration, ongoing numbness, severe pain, or swelling. Expect mild tingling of hand and tenderness at the puncture site for up to three days. If this persists beyond three days, or other symptoms develop, notify the Dr. who performed your procedure. BLEEDING: If the procedure site on your wrist begins to bleed, do not panic 1. Place 1 or 2 fingers firmly just slightly above the insertion site to stop the bleeding. You may be able to feel your pulse as you hold pressure. 2. Lift your finger after 5 minutes to see if the bleeding has stopped. 3. Once the bleeding has stopped, gently wipe the wrist area clean with a bandage. * If the bleeding from your wrist does not stop after 10 minutes, or if there is a large amount of bleeding or spurting, call 911 ([address] drive yourself to the hospital). SKIN IRRITATION: * You may experience some redness and/or swelling in the area where radiation was administered. If any skin irritation occurs, please contact your family physician. FOLLOW UP VISIT: Keep any scheduled doctor appointments. Pending Studies at Discharge: No Stand-Alone Forms: My [facility], Smoking Cessation Medications and DC Order Prescriptions: New isosorbide mononitrate 30 mg Tablet Extended Release 24 Hr 30 mg PO QAM Qty: 30 1RF ferrous sulfate 325 mg (65 mg iron) Tablet,Delayed Release (Dr/Ec) 325 mg PO QAM Qty: 30 1RF Continued nitroglycerin [Nitrostat] 0.4 mg tablet, sublingual 0.4 mg Sublingual Q5M PRN (Reason: Chest Pain) Qty: 20 5RF cilostazol 100 mg tablet 100 mg PO BID multivitamin Tablet 1 tab PO QAM atorvastatin [Lipitor] 40 mg Tablet 40 mg PO DAILY metoprolol tartrate [Lopressor] 50 mg Tablet 50 mg PO BID Calcium 600 + D(3) 600 mg calcium- 200 unit Capsule 1 tab PO QAM furosemide [Lasix] 40 mg tablet 40 mg PO BID aspirin 81 mg tablet,delayed release (DR/EC) 81 mg PO QAM Qty: 0 0RF Xarelto 20 mg tablet 20 mg PO HS Qty: 0 0RF omega 5-xkr-yau-fish oil [Fish Oil] 300-1,000 mg Capsule 1 cap PO DAILY potassium chloride [K-Tab] 20 mEq Tablet Extended Release 20 meq PO BID Qty: 60 0RF Discontinued amlodipine [Norvasc] 10 mg Tablet 10 mg PO DAILY Discharge Orders: Discharge Order (Routine); Ordered 02/22/23 Ordered By: Sinan Porras Admission Data Admit Date/Time: 02/20/23 10:20 Attending Provider: Sinan Porras Admit Provider: Lizabeth Pedraza Primary Care Provider: Arturo Bermudez Other Providers: Sekou Esparza ; Lizabeth Pedraza
[2023-02-23] MEDS ORDERED: ISOSORBIDE MONO EXTENDED REL 30 MG TABCR PO SCH (09:00)
== END 2023-02-22 18:30 | disposition home or self-care (01) | DRG 287 ==
LOC: ED 07:52 → 2S 10:20 → SUATTDRO 10:20 → 2S 10:46

== ENCOUNTER 2025-02-14 17:35 | Inpatient (IN) ==
[2025-02-14] MEDS: SODIUM CHLORIDE 0.9% 1,000 ML IV SCH ×2 (18:00→23:43)
--- NOTE | 2025-02-14 18:05 | Emergency Department Note ---
Impression & Plan Septic shock, Complicated urinary tract infection, Acute hypoxic respiratory failure, Hypomagnesemia, Acute hyponatremia, Hypokalemia, Acute non-ST elevation myocardial infarction (NSTEMI) ED Provider Note NAME: PONCHO FLORIAN AGE: 84 SEX: F : 1940 ARRIVES VIA: Walk-In INFORMANT: Patient, family members ED PROVIDER(S): Royce Florian DO CHIEF COMPLAINT: SOB HPI: This is a 84-year-old female with the PMHx of PAD/PVD, AAA s/p embolization/repair, HTN, HLD, IIDM2, CAD s/p PCI, chronic anticoagulation with Xarelto and HFmrEF presenting to [facility] for further evaluation of SOB. Patient is accompanied by her family members who provide additional history. The patient reports today she developed a fever and worsening shortness of breath. She does report some chest tightness. Patient states that she has had minimal congestion or cough. She also notes that she continues to have dark stools. Patient reports some back pain. Patient states that she was diagnosed with a vertebral compression fracture. She was also recently admitted for heart failure, upper GI bleed as well as other diagnoses. Patient states that she had been doing well up until this point today. They do report a prehospital fever. She denies any pain within her lower extremities including her left stump. She states it feels like she cannot get a deep breath in. Patient does note that her Xarelto was held during last admission due to upper GI bleed. Patient continues to have liquid stools as well as dark stools. Denies chest pain or palpitations. They deny abdominal pain, nausea and vomiting. No urinary complaints. Patient denies recent changes in medications or OTC supplements. Patient offers no other complaints, today. ADDITIONAL HISTORY OBTAINED: Per HPI Chronic Medical/Social Conditions Affecting Care: Per HPI PAST MEDICAL HISTORY: See Below PAST SURGICAL HISTORY: See Below FAMILY HISTORY: See Below SOCIAL HISTORY: See Below HOME MEDICATIONS: See Below ALLERGIES: See Below VITALS: See Below PHYSICAL EXAMINATION: GENERAL: Sitting up in bed, alert, ill appearing, well nourished, no distress, non-toxic EYE EXAM: normal conjunctiva. PERRL and EOM's grossly intact. OROPHARYNX: no exudate, no erythema, lips, buccal mucosa, and tongue normal and mucous membranes are dry NECK: supple, no nuchal rigidity, no adenopathy, non-tender LUNGS: Mild tachypnea present. No significant wheezing or rhonchi. She does have decreased air movement in all lung north. HEART: no murmurs, Tachycardic rate, regular rhythm, patient has 2+ radial pulses as well as a 2+ DP pulse, extremities or relatively warm and perfused. Capillary refill is normal. ABDOMEN: abdomen soft, non-tender, no masses, no rebound or guarding. BACK: Back is symmetrical on inspection and there is no deformity, no midline tenderness, no CVA tenderness. SKIN: no rashes and no bruising UPPER EXTREMITIES: upper extremities are grossly normal. LOWER EXTREMITIES: No pitting edema. L AKA NEURO EXAM: Normal sensorium, GCS 15, normal speech, no gross weakness of arms, no gross weakness of legs. MEDICAL DECISION MAKING: Differential diagnoses includes but not limited to ACS, unstable angina, dysrhythmia, PNA, hypervolemia/pulmonary edema, CHF exacerbation, COPD exacerbation, PE, pneumothorax, pericardial effusion, cardiac tamponade, anxiety/psychogenic, viral URI, cardiogenic shock, septic shock, bacteremia, complicated UTI, diarrheal illness, C. difficile infection, electrolyte derangements, kidney dysfunction, hypovolemic shock In summary, this is a 84 year old female who presented with SOB. Differential as above. Nursing notes and pertinent past medical records reviewed. Vital signs reviewed and the patient is borderline febrile, tachycardic and hypotensive. Patient is mildly hypoxic and tachypneic. History and presentation revealed Recent admission to the hospital. I reviewed documentation from last hospital stay including discharge summary. It appears at that time there was concerns for possible upper GI bleed as well as heart failure exacerbation. Physical examination revealed generally ill appearing elderly female but she does not appear significantly pale. She is hemodynamically unstable and in mild respiratory distress. No significant abdominal tenderness to palpation. She is perfusing. Poor air movement globally. As a result of my initial evaluation, patient arrives with recent admission to the hospital and now critically ill. The patient is hemodynamically unstable on arrival. She is requiring up to 5 L of low-flow nasal cannula for improvement in oxygenation status. Mild tachypnea as well as severe tachycardia. Patient is borderline hypotensive. Given patient's vital signs, I am concerned for shock like state. Given borderline fever as well as documented fever with Tmax of 103 F at home, there is a concern for septic shock. Plan for labs, broad-spectrum antibiotics and IV fluid resuscitation. Will obtain a chest x-ray. If chest x-ray is negative, I would consider proceeding with CT PE study. I obtained a bedside ultrasound on arrival to the emergency department. Her EF appears hyperdynamic. Her IVC is completely collapsing on itself. I do not see a large pericardial effusion. Do not see significant B-lines. Will provide 1 L of IV fluid resuscitation to be start with given her history of heart failure w/ reduced ejection fraction on recent admission. I reviewed documentation from the cardiology team and TTE. It appears the patient was just treated for proctitis as an inpatient. There were concerns for possible upper GI bleed at the last admission. Anemia would be another consideration. Patient could have a massive GI bleed as well given her dark stools. Would suspect that this would be upper GI bleeding. Plan for CT abdomen/pelvis for further characterization of possible intra-abdominal sources of sepsis, AAA as well as hemorrhage. She was treated empirically with broad-spectrum antibiotics at that time but no other sources identified besides gastrointestinal infection. I do believe she had C. difficile testing that was negative. For her respiratory status including acute hypoxemic respiratory failure, this was addressed with low-flow nasal cannula with improvement. She does have mild tachypnea but her work of breathing is not severe at this time to suggest need for NIV. Plan for VBG and further lab work. Will provide a DuoNeb given history of emphysema and poor air movement on pulmonary auscultation. Do not hear significant wheezing but she did have some rhonchorous breath sounds on the left. Plan for further evaluation of pneumonia with chest x-ray. Diagnostics interpreted by me include EKG and cardiac monitoring as listed below: -Cardiac Monitoring: An order was placed for continuous cardiac monitoring. The monitor shows a rate of 90-140 with regular rhythm. -ECG: EKG independently interpreted by me reveals sinus tachycardia [address] segment changes to suggest STEMI. There are intermittent PVCs present. 2 on this rhythm strip. Intervals are otherwise within normal limits. Patient completed laboratory studies and imaging. CXR independently interpreted by me reveals no evidence of focal consolidation to suggest pna. No large pneumothorax or pleural effusion. Results independently interpreted by me are VBG showing no evidence of significant hypercapnia. Small leukocytosis noted. Minimal hyponatremia and hypokalemia present. Procalcitonin is elevated. BNP is mildly elevated. There is evidence of hypoperfusion including elevated lactate. Hypomagnesemia was noted and IV replenishment ordered. The patient was managed with crystalloid resuscitation and broad spectrum abx. Vancomycin added given recent admission and ongoing diarrheal illness. Patient's blood pressure continues to downtrend. She is now hypotensive. Patient has received a liter of IV fluid resuscitation. I would like to be gentle with her IV hydration given her history of heart failure and small body habitus. Will utilize vasopressors after risk versus benefit discussion with the patient's family members as well as the patient. I continued crystalloid resuscitation for a total of 2L. Patient labs returned with severely elevated troponin. She has had intermittent chest pain that has been relieved with IV fentanyl. She received an initial dose of Fentanyl and Tylenol (antipyretic, which improved fever) on arrival but she was not having active chest pain. Additional dose relieved chest pressure/pain. Does continue to be significantly tachycardic. Do feel the patient's chest pain is likely related to type II TN. Likely NSTEMI in the setting of her septic shock. Do not feel heparin is necessary at this time as this would not change outcomes. Patient was recently admitted for an upper GI bleed as well giving a reason not to utilize heparin. Patient had a repeat EKG that was entered by me as tachycardia rate of [address] segment changes to suggest STEMI. Again frequent PVCs noted with 3 on this rhythm strip. Will repeat troponin level. Further investigation into the patient's cardiovascular history includes nonobstructive disease in 2022. Does have heart failure with mildly reduced ejection fraction. Some mitral regurgitation. I doubt that the patient's presentation today is due to thrombotic disease. I do feel this is likely more demand ischemia. Patient was discussed with [facility] cardiology and they do not believe that cardiac catheterization is necessary at this time. They recommend stabilization and treatment of her septic shock and they will reevaluate for further workup. On reevaluation, the patient's hemodynamics are improving with resuscitation. LFNC is titrating down with some improvement following Duoneb. Given negative chest x-ray as well as respiratory complaints, we proceeded with CT PE study as well as CT abdomen/pelvis. CT PE study was determined as negative for large saddle pulmonary embolism as independently interpreted by me. CT abdomen/pelvis independently turbid by me negative for infectious pathology. Patient does have emphysema changes on CT study as well as chest x-ray. Do feel her respiratory symptoms today are more related to her septic shock rather than COPD exacerbation. Given cardiovascular support that is needed at this time in the setting of her septic shock, patient will require ICU level of care. Lactate has cleared with IV fluid resuscitation. Troponin continues to rise. Urinalysis was shown to have infection. This is likely her source of sepsis. Ultimately, the decision was made to admit the patient for septic shock secondary to a UTI complicated by NSTEMI and acute hypoxemic respiratory failure. I discussed the case with DANIS ARZATE and he was agreeable for consultation. I discussed the case with the hospitalist service via telephone/Tiger[employer] and they are agreeable to admit the patient to their services. Based on the above, including the patient's age, coexisting illnesses, labs, imaging, and exam findings the decision to treat as an inpatient. I discussed the patient with the hospitalist team who recommended admission to their services. They received the medications, treatments, interventions indicated above and their condition remained guarded. I discussed my findings with the patient and their family and they understand and agree with the treatment plan. All patient / family questions were answered to their satisfaction. Consults/Care Managements Discussions: Per MDM ER treatment provided: See above Procedures: None Critical Care: I have personally spent 52 minutes of critical care time in direct management of this patient. This includes bedside care, interpretation of diagnostic studies, and testing, discussion with consultants, patient, and family members, and other require inpatient management activities. This 52 minutes is in excess of all separately billable procedures. The chart was completed utilizing [employer] Speech voice recognition software. Grammatical errors, random word insertions, pronoun errors, and incomplete sentences are an occasional consequence of this system due to software limitations, ambient noise, and hardware issues. Any formal questions or concerns about the content, text, or information contained within the body of this dictation should be directly addressed to the physician for clarification. Past Med/Surg History Problem List (Updated 02/15/25 @ 03:01 by Royce Florian DO) Acute non-ST elevation myocardial infarction (NSTEMI) (Acute) Hypokalemia (Acute) Acute hyponatremia (Acute) Hypomagnesemia (Acute) Acute hypoxic respiratory failure (Acute) Complicated urinary tract infection (Acute) Septic shock (Acute) Shock Electrolyte abnormality Septic shock Acute CHF Acute heart failure with reduced ejection fraction (HFrEF) Thoracic compression fracture Diarrhea Severe sepsis Rectal bleeding Acute anemia Proctocolitis Sepsis Anemia (Acute) Elevated WBC count (Acute) Abnormal computed tomography of abdomen and pelvis (Acute) AAA (abdominal aortic aneurysm) (Acute) Right sided abdominal pain (Acute) Stented coronary artery HLD (hyperlipidemia) (Chronic) HTN (hypertension) (Chronic) Carotid stenosis (Chronic) PVD (peripheral vascular disease) (Chronic) "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" History of heart artery stent (Chronic) "1997" S/P appendectomy (Chronic) H/O tubal ligation (Chronic) H/O colonoscopy (Chronic) "adenomatous & TVA polyps, diverticulosis, repeat 3 yrs 02/11/2015" Adenomatous polyps Current use of anticoagulant therapy (Acute) Leg wound, right Osteoporosis (Acute) Iliac aneurysm (Acute) Dyslipidemia (Acute) Chronic ischemic heart disease (Acute) Chronic ischemia, myocardial (Acute) Chest pain (Acute) Arteriosclerotic cardiovascular disease (Acute) S/P AKA (above knee amputation) Abscess of left thigh Encounter for pre-operative examination Anemia Chest pain (Acute) Hypoxia Angina at rest Diabetes mellitus, type II AAA (abdominal aortic aneurysm) s/p embolization 06/2021 Dr. Bolanos S/P femoral-popliteal bypass surgery PAD (peripheral artery disease) (Acute) Anemia Hx of arterial bypass of lower limb LEFT LEG 07/13/2019: Grade 2 view, MAC#3, ETT#7.0 atraumatic x 1. No issues per anesthesia postop progress note. CAD (coronary artery disease) stent (1997) Medical History Prediabetes Wheelchair dependence History of recent hospitalization 01/2023 [facility] - chest pain On home O2 qHS On anticoagulant therapy Lower GI bleed HISTORY OF FROM HEMORRHOID Peripheral vascular disease Osteoarthritis Hypertension controlled, stable per pt Hyperlipidemia Surgical History S/P insertion of iliac artery stent History of cardiac cath 02/22/23 - [facility] - CP - no stents. History of esophagogastroduodenoscopy (EGD) History of incision and drainage left inner thigh 02/08/2020: LMA#4 atraumatic x 1. No issues per anesthesia postop progress note. 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-DOES NOT WEAR PROSTHESIS History of appendectomy History of bilateral tubal ligation H/O breast surgery X 2-BENIGN LUMPECTOMY Previous back surgery BONE SPUR REMOVED Family History Son Family history of diabetes mellitus Other No family history of adverse response to anesthesia Social History Smoking Status: Former smoker Tobacco Type: Cigarettes Smoking End Date: 20 years ago; Second Hand Exposure: No; Do You Dip or Chew Tobacco: No; Hx Alcohol Use: Yes Alcohol type: beer Hx Substance Use: No Preferred Language: Stateless Communication Ability: Effective Floor Trader Required: No Beliefs That Will Affect Care: None marital status: Current Living Situation: Spouse Current Living Situation Comment: [facility] Other Information That Helps Us Care for You: No Feels Safe at Home: Yes Safety Concerns: Feels Safe At This Time Assistive Devices: Denture - Upper, Denture - Lower, Oxygen - at Night and Wheelchair Allergies Allergies Allergy/AdvReac Type Severity Reaction Status Date / Time diphenhydramine AdvReac Intermediate heart Verified 01/04/25 10:36 racing Home Meds Home Medications Medication Instructions Recorded Confirmed atorvastatin 40 mg tablet (Lipitor) 40 mg PO QPM 03/24/18 02/14/25 metoprolol tartrate 50 mg tablet 50 mg PO BID 03/24/18 02/14/25 (Lopressor) multivitamin 1 tab PO QAM 03/24/18 02/14/25 furosemide 40 mg tablet (Lasix) 40 mg PO BID 08/06/19 02/14/25 cilostazol 100 mg tablet 100 mg PO BID 03/06/20 02/14/25 omega [id number]-[id number]-fish oil 300 1 cap PO QAM 02/20/23 02/14/25 mg-1,000 mg capsule (Fish Oil) calcium carbonate (Calcium 600) 600 mg PO DAILY 07/14/23 02/14/25 potassium chloride 20 mEq 20 meq PO AMHS 01/30/25 02/14/25 tablet,extended release tramadol 50 mg tablet 50 mg PO Q6 PRN Pain, Moderate 02/14/25 02/14/25 Previous Rx's Medication Instructions Recorded aspirin 81 mg tablet,delayed 81 mg PO QAM #0 tabs 08/07/19 release rivaroxaban 20 mg tablet (Xarelto) 20 mg PO HS #0 tabs 08/07/19 isosorbide mononitrate 30 mg 30 mg PO QAM #30 tabs 02/22/23 tablet,extended release 24 hr nitroglycerin 0.4 mg sublingual 0.4 mg sublingual Q5M PRN Chest 07/12/24 tablet (Nitrostat) Pain #20 tabs L.acidop,casei,lactis,rham-B.lact,brandon 10 cap PO DAILY #10 caps 02/05/25 625 mg (10 billion cell) capsule (Advanced Probiotic) ferrous sulfate 325 mg (65 mg 325 mg PO BID #60 tabs 02/05/25 iron) tablet,delayed release lidocaine 4 % topical patch 1 patch topical DAILY 10 days #10 02/05/25 ea Results & Data (ED) Vital Signs Vital Signs - 24 hr 02/14/25 17:42 02/14/25 17:53 02/14/25 18:03 Temperature 37.9 C H Temperature Source Oral Pulse Rate 133 H 130 H 135 H Pulse Rate [Right Finger] Pulse Rate from SpO2 Sensor 137 H Respiratory Rate 28 H 17 Respiratory Effort / Characteristics Spontaneous Labored Respiratory Depth Normal Respiratory Pattern Grunting Blood Pressure 92/69 L 94/63 L Blood Pressure [Right Arm] Blood Pressure Mean 76 73 Blood Pressure Mean [Right Arm] Pulse Oximetry 87 L 96 Oxygen Delivery Method Room Air Nasal Cannula Oxygen Flow Rate 5 Sepsis Recent Fever Within 48 Hours No Sepsis New/Unexplained Change in Mental Status No Sepsis Action Taken by Nursing No Action Required 02/14/25 18:30 02/14/25 18:46 02/14/25 18:46 Temperature Temperature Source Pulse Rate 123 H Pulse Rate [Right Finger] 122 H Pulse Rate from SpO2 Sensor Respiratory Rate 22 22 Respiratory Effort / Characteristics Respiratory Depth Respiratory Pattern Blood Pressure 74/48 L 74/48 L Blood Pressure [Right Arm] 90/65 L Blood Pressure Mean 55 55 Blood Pressure Mean [Right Arm] 73 Pulse Oximetry 98 98 Oxygen Delivery Method Nasal Cannula Oxygen Flow Rate 5 5 Sepsis Recent Fever Within 48 Hours Sepsis New/Unexplained Change in Mental Status Sepsis Action Taken by Nursing 02/14/25 18:56 02/14/25 18:56 02/14/25 18:57 Temperature Temperature Source Pulse Rate 128 H Pulse Rate [Right Finger] Pulse Rate from SpO2 Sensor 127 H Respiratory Rate 16 Respiratory Effort / Characteristics Respiratory Depth Respiratory Pattern Blood Pressure 84/55 L 84/55 L Blood Pressure [Right Arm] Blood Pressure Mean 64 64 Blood Pressure Mean [Right Arm] Pulse Oximetry 100 Oxygen Delivery Method Oxygen Flow Rate Sepsis Recent Fever Within 48 Hours Sepsis New/Unexplained Change in Mental Status Sepsis Action Taken by Nursing 02/14/25 18:58 02/14/25 19:00 02/14/25 19:00 Temperature Temperature Source Pulse Rate 125 H Pulse Rate [Right Finger] 127 H Pulse Rate from SpO2 Sensor 125 H Respiratory Rate 24 16 Respiratory Effort / Characteristics Respiratory Depth Respiratory Pattern Blood Pressure 80/49 L Blood Pressure [Right Arm] 84/55 L Blood Pressure Mean 66 Blood Pressure Mean [Right Arm] 64 Pulse Oximetry 99 95 Oxygen Delivery Method Nasal Cannula Oxygen Flow Rate 5 Sepsis Recent Fever Within 48 Hours Sepsis New/Unexplained Change in Mental Status Sepsis Action Taken by Nursing 02/14/25 19:15 02/14/25 19:15 02/14/25 19:18 Temperature Temperature Source Pulse Rate 123 H Pulse Rate [Right Finger] Pulse Rate from SpO2 Sensor 123 H Respiratory Rate 19 Respiratory Effort / Characteristics Respiratory Depth Respiratory Pattern Blood Pressure 105/66 105/66 Blood Pressure [Right Arm] Blood Pressure Mean 73 73 Blood Pressure Mean [Right Arm] Pulse Oximetry 95 Oxygen Delivery Method Oxygen Flow Rate Sepsis Recent Fever Within 48 Hours Sepsis New/Unexplained Change in Mental Status Sepsis Action Taken by Nursing 02/14/25 19:30 02/14/25 19:50 02/14/25 19:50 Temperature Temperature Source Pulse Rate Pulse Rate [Right Finger] Pulse Rate from SpO2 Sensor Respiratory Rate Respiratory Effort / Characteristics Respiratory Depth Respiratory Pattern Blood Pressure 103/65 103/65 Blood Pressure [Right Arm] Blood Pressure Mean 68 68 Blood Pressure Mean [Right Arm] Pulse Oximetry Oxygen Delivery Method Nasal Cannula Oxygen Flow Rate Sepsis Recent Fever Within 48 Hours Sepsis New/Unexplained Change in Mental Status Sepsis Action Taken by Nursing 02/14/25 19:54 02/14/25 19:57 02/14/25 20:00 Temperature Temperature Source Pulse Rate 121 H 119 H Pulse Rate [Right Finger] Pulse Rate from SpO2 Sensor 121 H 125 H Respiratory Rate 20 19 Respiratory Effort / Characteristics Non-Labored Respiratory Depth Normal Respiratory Pattern Blood Pressure Blood Pressure [Right Arm] Blood Pressure Mean Blood Pressure Mean [Right Arm] Pulse Oximetry 94 96 Oxygen Delivery Method Oxygen Flow Rate Sepsis Recent Fever Within 48 Hours Sepsis New/Unexplained Change in Mental Status Sepsis Action Taken by Nursing 02/14/25 20:00 02/14/25 20:15 02/14/25 20:15 Temperature Temperature Source Pulse Rate Pulse Rate [Right Finger] Pulse Rate from SpO2 Sensor Respiratory Rate Respiratory Effort / Characteristics Non-Labored Respiratory Depth Normal Respiratory Pattern Blood Pressure 104/69 103/67 Blood Pressure [Right Arm] Blood Pressure Mean 72 77 Blood Pressure Mean [Right Arm] Pulse Oximetry Oxygen Delivery Method Oxygen Flow Rate Sepsis Recent Fever Within 48 Hours Sepsis New/Unexplained Change in Mental Status Sepsis Action Taken by Nursing 02/14/25 20:15 02/14/25 20:30 02/14/25 20:45 Temperature Temperature Source Pulse Rate 121 H 122 H Pulse Rate [Right Finger] Pulse Rate from SpO2 Sensor 117 H 127 H Respiratory Rate 18 21 Respiratory Effort / Characteristics Respiratory Depth Respiratory Pattern Blood Pressure 88/59 L Blood Pressure [Right Arm] Blood Pressure Mean 75 Blood Pressure Mean [Right Arm] Pulse Oximetry 94 Oxygen Delivery Method Oxygen Flow Rate Sepsis Recent Fever Within 48 Hours Sepsis New/Unexplained Change in Mental Status Sepsis Action Taken by Nursing 02/14/25 20:45 02/14/25 20:46 02/14/25 21:00 Temperature Temperature Source Pulse Rate 119 H Pulse Rate [Right Finger] Pulse Rate from SpO2 Sensor 120 H Respiratory Rate 22 Respiratory Effort / Characteristics Non-Labored Non-Labored Respiratory Depth Normal Normal Respiratory Pattern Blood Pressure Blood Pressure [Right Arm] Blood Pressure Mean Blood Pressure Mean [Right Arm] Pulse Oximetry 92 Oxygen Delivery Method Oxygen Flow Rate Sepsis Recent Fever Within 48 Hours Sepsis New/Unexplained Change in Mental Status Sepsis Action Taken by Nursing 02/14/25 21:00 02/14/25 21:00 02/14/25 21:00 Temperature Temperature Source Pulse Rate Pulse Rate [Right Finger] Pulse Rate from SpO2 Sensor Respiratory Rate Respiratory Effort / Characteristics Respiratory Depth Respiratory Pattern Blood Pressure 95/67 L 95/67 L 95/67 L Blood Pressure [Right Arm] Blood Pressure Mean 70 70 70 Blood Pressure Mean [Right Arm] Pulse Oximetry Oxygen Delivery Method Oxygen Flow Rate Sepsis Recent Fever Within 48 Hours Sepsis New/Unexplained Change in Mental Status Sepsis Action Taken by Nursing 02/14/25 21:00 02/14/25 21:00 02/14/25 21:06 Temperature Temperature Source Pulse Rate 119 H 115 H Pulse Rate [Right Finger] Pulse Rate from SpO2 Sensor 118 H 115 H Respiratory Rate 22 20 Respiratory Effort / Characteristics Respiratory Depth Respiratory Pattern Blood Pressure 95/67 L Blood Pressure [Right Arm] Blood Pressure Mean 70 Blood Pressure Mean [Right Arm] Pulse Oximetry 95 93 Oxygen Delivery Method Oxygen Flow Rate Sepsis Recent Fever Within 48 Hours Sepsis New/Unexplained Change in Mental Status Sepsis Action Taken by Nursing 02/14/25 21:15 02/14/25 21:15 02/14/25 21:18 Temperature Temperature Source Pulse Rate 114 H Pulse Rate [Right Finger] Pulse Rate from SpO2 Sensor 112 H Respiratory Rate 19 Respiratory Effort / Characteristics Respiratory Depth Respiratory Pattern Blood Pressure 96/68 L 96/68 L Blood Pressure [Right Arm] Blood Pressure Mean 82 82 Blood Pressure Mean [Right Arm] Pulse Oximetry 93 Oxygen Delivery Method Oxygen Flow Rate Sepsis Recent Fever Within 48 Hours Sepsis New/Unexplained Change in Mental Status Sepsis Action Taken by Nursing 02/14/25 21:23 Temperature 31.9 C L Temperature Source Corbett Cath ( Temp Sensing) Pulse Rate Pulse Rate [Right Finger] 64 Pulse Rate from SpO2 Sensor Respiratory Rate 20 Respiratory Effort / Characteristics Respiratory Depth Respiratory Pattern Blood Pressure Blood Pressure [Right Arm] 117/64 Blood Pressure Mean Blood Pressure Mean [Right Arm] 81 Pulse Oximetry 95 Oxygen Delivery Method Oxygen Flow Rate Sepsis Recent Fever Within 48 Hours Sepsis New/Unexplained Change in Mental Status Sepsis Action Taken by Nursing Laboratory Data 02/14/25 18:00 02/14/25 18:00 Lab Results 02/14/25 02/14/25 02/14/25 Range/Units 18:00 18:13 18:20 WBC 13.17 H (4.8-10.8) K/ul RBC 3.69 L (4.20-5.40) M/uL Hgb 10.7 L (12.0-16.0) g/dl Hct 33.1 L (37.0-47.0) % MCV 89.7 (80.0-100.0) fL MCH 29.0 (25.0-34.0) pg MCHC 32.3 (32.0-36.0) g/dL RDW Std Deviation 45.1 (36.4-46.3) fL RDW Coeff of Jean 13.7 (11.5-14.5) % Plt Count 524 H (130-400) K/uL MPV 9.5 (9.4-12.4) fL Immature Gran % (Auto) 0.5 % Neut % (Auto) 95.5 % Lymph % (Auto) 1.4 % Guthrie % (Auto) 2.4 % Eos % (Auto) 0.0 % Baso % (Auto) 0.2 % Neut # (Auto) 12.58 H (1.40-6.50) K/uL Lymph # (Auto) 0.18 L (1.20-3.40) K/uL Guthrie # (Auto) 0.31 (0.11-0.59) K/uL Eos # (Auto) 0.00 (0.00-0.50) K/uL Baso # (Auto) 0.03 (0.00-0.20) K/uL Immature Gran # (Auto) 0.07 (0.01-0.20) K/uL PT 14.2 H (9.0-12.0) Seconds INR 1.3 H (0.9-1.1) APTT 34 H (21-31) Seconds PTT Ratio 1.3 VBG pH 7.43 H (7.36-7.41) VBG pCO2 31 L (38-50) mmHg VBG pO2 51 mmHg VBG HCO3 21 mmol/L VBG O2 Saturation 83.0 % VBG Base Excess -2.7 mEq/L Sodium 132 L (136-145) mmol/L Potassium 3.4 L (3.5-5.1) mmol/L Chloride 97 L (98-107) mmol/L Carbon Dioxide 20 L (21-32) mmol/L Anion Gap 15 H (3-11) BUN 15 (6-23) mg/dl Creatinine 0.79 (0.6-1.2) mg/dl Est Cr Clr Drug Dosing 45.6 ml/min eGFR 74.17 BUN/Creatinine Ratio 19.0 (10-20) Glucose 160 H (70-99(Fasting)) mg/dl Lactate 3.4 H* (0.4-2.0) mmol/L Calcium 8.4 L (8.6-10.3) mg/dl Magnesium 1.4 L (1.7-2.4) mg/dl Total Bilirubin 0.8 (0.2-1.0) mg/dl Direct Bilirubin 0.2 (0-0.2) mg/dl AST 26 (13-39) U/L ALT 16 (7-52) U/L Alkaline Phosphatase 120 H (34-104) U/L Troponin I High Sens 1395.6 H* (0-14) pg/ml B-Natriuretic Peptide 599 H (0-100) pg/ml Total Protein 6.6 (6.0-8.3) gm/dl Albumin 3.1 L (3.4-5.0) gm/dl Procalcitonin 1.35 H (0-0.5) ng/ml Nasal Screen MRSA (PCR) Negative (Negative) Adenovirus (PCR) Not Detected (NotDetected) B. pertussis DNA (PCR) Not Detected (NotDetected) B.parapertussis DNA PCR Not Detected (NotDetected) C. pneumoniae DNA (PCR) Not Detected (NotDetected) Coronavirus OC43 (PCR) Not Detected (NotDetected) Coronavirus HKU1 (PCR) Not Detected (NotDetected) Coronavirus 229E (PCR) Not Detected (NotDetected) SARS-CoV-2 (PCR) Not Detected (NotDetected) Coronavirus NL63 (PCR) Not Detected (NotDetected) Human Metapneumovir PCR Not Detected (NotDetected) Influenza Type A (PCR) Not Detected (NotDetected) Influenza Type B (PCR) Not Detected (NotDetected) M. pneumoniae (PCR) Not Detected (NotDetected) Parainfluenza 1 (PCR) Not Detected (NotDetected) Parainfluenza 2 (PCR) Not Detected (NotDetected) Parainfluenza 3 (PCR) Not Detected (NotDetected) Parainfluenza 4 (PCR) Not Detected (NotDetected) RSV (PCR) Not Detected (NotDetected) Entero/Rhino (PCR) Not Detected (NotDetected) Blood Type A Positive Antibody Screen NEGATIVE 02/14/25 Range/Units 20:46 WBC (4.8-10.8) K/ul RBC (4.20-5.40) M/uL Hgb (12.0-16.0) g/dl Hct (37.0-47.0) % MCV (80.0-100.0) fL MCH (25.0-34.0) pg MCHC (32.0-36.0) g/dL RDW Std Deviation (36.4-46.3) fL RDW Coeff of Jean (11.5-14.5) % Plt Count (130-400) K/uL MPV (9.4-12.4) fL Immature Gran % (Auto) % Neut % (Auto) % Lymph % (Auto) % Guthrie % (Auto) % Eos % (Auto) % Baso % (Auto) % Neut # (Auto) (1.40-6.50) K/uL Lymph # (Auto) (1.20-3.40) K/uL Guthrie # (Auto) (0.11-0.59) K/uL Eos # (Auto) (0.00-0.50) K/uL Baso # (Auto) (0.00-0.20) K/uL Immature Gran # (Auto) (0.01-0.20) K/uL PT (9.0-12.0) Seconds INR (0.9-1.1) APTT (21-31) Seconds PTT Ratio VBG pH (7.36-7.41) VBG pCO2 (38-50) mmHg VBG pO2 mmHg VBG HCO3 mmol/L VBG O2 Saturation % VBG Base Excess mEq/L Sodium (136-145) mmol/L Potassium (3.5-5.1) mmol/L Chloride (98-107) mmol/L Carbon Dioxide (21-32) mmol/L Anion Gap (3-11) BUN (6-23) mg/dl Creatinine (0.6-1.2) mg/dl Est Cr Clr Drug Dosing ml/min eGFR BUN/Creatinine Ratio (10-20) Glucose (70-99(Fasting)) mg/dl Lactate 1.4 (0.4-2.0) mmol/L Calcium (8.6-10.3) mg/dl Magnesium (1.7-2.4) mg/dl Total Bilirubin (0.2-1.0) mg/dl Direct Bilirubin (0-0.2) mg/dl AST (13-39) U/L ALT (7-52) U/L Alkaline Phosphatase (34-104) U/L Troponin I High Sens 4679.6 H* D (0-14) pg/ml B-Natriuretic Peptide (0-100) pg/ml Total Protein (6.0-8.3) gm/dl Albumin (3.4-5.0) gm/dl Procalcitonin (0-0.5) ng/ml Nasal Screen MRSA (PCR) (Negative) Adenovirus (PCR) (NotDetected) B. pertussis DNA (PCR) (NotDetected) B.parapertussis DNA PCR (NotDetected) C. pneumoniae DNA (PCR) (NotDetected) Coronavirus OC43 (PCR) (NotDetected) Coronavirus HKU1 (PCR) (NotDetected) Coronavirus 229E (PCR) (NotDetected) SARS-CoV-2 (PCR) (NotDetected) Coronavirus NL63 (PCR) (NotDetected) Human Metapneumovir PCR (NotDetected) Influenza Type A (PCR) (NotDetected) Influenza Type B (PCR) (NotDetected) M. pneumoniae (PCR) (NotDetected) Parainfluenza 1 (PCR) (NotDetected) Parainfluenza 2 (PCR) (NotDetected) Parainfluenza 3 (PCR) (NotDetected) Parainfluenza 4 (PCR) (NotDetected) RSV (PCR) (NotDetected) Entero/Rhino (PCR) (NotDetected) Blood Type Antibody Screen Administered Medications Norepinephrine Bitartrate (Levophed/D5w) 4 mg in 250 mls @ 10.031 mls/hr IV .Q24H [facility]; Protocol Stop: 03/16/25 18:59 Last Titration: 02/15/25 02:33 Dose: 0.03 mcg/kg/min, 6 mls/hr Documented By: CLC Co-signed By: TP Titration: 02/14/25 23:00 Dose: 0.05 mcg/kg/min, 10 mls/hr Documented By: CLC Co-signed By: TP Titration: 02/14/25 20:34 Dose: 0.07 mcg/kg/min, 14 mls/hr Documented By: HIGINIO Co-signed By: OUMAR Admin: 02/14/25 18:53 Dose: 0.05 mcg/kg/min, 10 mls/hr Documented By: TDM Co-signed By: MR Sodium Chloride (Nss) 1,000 mls @ 100 mls/hr IV .Q10H [facility] Stop: 02/17/25 23:13 Last Admin: 02/14/25 23:43 Dose: 100 mls/hr Documented By: CLC Heparin Sodium/Dextrose (Heparin 71785 Unit/500 Ml D5w) 25,000 units in 500 mls @ 19 mls/hr IV .Q24H [facility]; Protocol Stop: 03/16/25 23:13 Last Admin: 02/14/25 23:43 Dose: 950 units/hr, 19 mls/hr Documented By: CLC Co-signed By: TP Magnesium Sulfate/Dextrose (Magnesium Sulfate / D5w) 1 gm in 100 mls @ 50 mls/hr IV Q2H [facility] Stop: 02/15/25 07:44 Last Admin: 02/15/25 01:19 Dose: 50 mls/hr Documented By: Infusion: 02/15/25 01:19 Dose: Infused Documented By: Admin: 02/14/25 23:43 Dose: 50 mls/hr Documented By: CLC Vancomycin HCl (Vancomycin Hcl) 1,000 mg in 270 mls @ 200 mls/hr IV Q24H [facility] Stop: 02/17/25 01:59 Last Admin: 02/15/25 01:19 Dose: 200 mls/hr Documented By: CLC Insulin Aspart (Insulin Aspart Per Unit Charge) 0 units SC Q6 [facility] Stop: 03/17/25 00:59 Last Admin: 02/15/25 01:19 Dose: 2 units Documented By: CLC Co-signed By: TP Discontinued Medications Albuterol (Albut/Ipratrop 3mg/0.5mg Neb 3 Ml Vial) 3 ml NEB NOW STA; Protocol Stop: 02/14/25 18:11 Last Admin: 02/14/25 18:40 Dose: 3 ml Documented By: TDM Fentanyl Citrate (Fentanyl Citrate Pf 100 Mcg/2 Ml Vial) 50 mcg IV NOW ONE Stop: 02/14/25 18:29 Last Admin: 02/14/25 18:39 Dose: 50 mcg Documented By: TDM Fentanyl Citrate (Fentanyl Citrate Pf 100 Mcg/2 Ml Vial) 50 mcg IV NOW ONE Stop: 02/14/25 20:07 Last Admin: 02/14/25 20:12 Dose: 50 mcg Documented By: HIGINIO Sodium Chloride (Nss) 1,000 mls @ 999 mls/hr IV .Q1H1M [facility] Stop: 02/14/25 19:00 Last Infusion: 02/14/25 20:08 Dose: Infused Documented By: Admin: 02/14/25 18:00 Dose: 999 mls/hr Documented By: TDM Cefepime HCl (Maxipime 2000mg) 2,000 mg in 20 mls @ 5 mls/min IV NOW STA; Protocol Stop: 02/14/25 17:55 Last Admin: 02/14/25 18:40 Dose: 5 mls/min Documented By: TDM Acetaminophen (Ofirmev) 1,000 mg in 100 mls @ 400 mls/hr IV NOW STA Stop: 02/14/25 18:23 Last Infusion: 02/14/25 18:55 Dose: Infused Documented By: Admin: 02/14/25 18:40 Dose: 400 mls/hr Documented By: TDM Sodium Chloride (Nss) 500 mls @ 999 mls/hr IV .Q31M ONE Stop: 02/14/25 19:20 Last Infusion: 02/14/25 20:08 Dose: Infused Documented By: Admin: 02/14/25 19:00 Dose: 999 mls/hr Documented By: TDM Vancomycin HCl (Vancomycin Hcl) 1,000 mg in 270 mls @ 200 mls/hr IV NOW ONE; Protocol Stop: 02/14/25 20:10 Last Infusion: 02/14/25 21:27 Dose: Infused Documented By: Admin: 02/14/25 19:05 Dose: 200 mls/hr Documented By: HIGINIO Magnesium Sulfate/Dextrose (Magnesium Sulfate / D5w) 1 gm in 100 mls @ 100 mls/hr IV Q1H [facility] Stop: 02/14/25 21:10 Last Infusion: 02/14/25 23:15 Dose: Infused Documented By: Admin: 02/14/25 21:22 Dose: 100 mls/hr Documented By: Infusion: 02/14/25 21:22 Dose: Infused Documented By: Admin: 02/14/25 20:23 Dose: 100 mls/hr Documented By: HIGINIO Parenteral Electrolytes (Plasma-Lyte A Ph 7.4) 500 mls @ 999 mls/hr IV .Q31M ONE Stop: 02/14/25 21:05 Last Infusion: 02/14/25 23:15 Dose: Infused Documented By: Admin: 02/14/25 21:00 Dose: 999 mls/hr Documented By: HIGINIO Magnesium Sulfate/Dextrose (Magnesium Sulfate / D5w) 1 gm in 100 mls @ 50 mls/hr IV ONE ONE Stop: 02/15/25 01:13 Last Admin: 02/14/25 23:55 Dose: Not Given Documented By: MAUREEN Ioversol (Optiray 320 125ml) 119 ml IV ONCE ONE Stop: 02/14/25 19:39 Last Admin: 02/14/25 19:38 Dose: 119 ml Documented By: GAYLE Miscellaneous (Stat Iv Infusion Titration Per Protocol) 1 each N/A NOW STA Stop: 02/14/25 18:51 Last Admin: 02/14/25 20:04 Dose: Not Given Documented By: HIGINIO Potassium Chloride (Potassium Chloride Crtab 20 Meq Tabcr) 20 meq PO NOW STA Stop: 02/14/25 23:38 Last Admin: 02/14/25 23:43 Dose: 20 meq Documented By: MAUREEN Imaging Data Radiologist's Impression: Chest X-Ray 02/14/25 17:52 Chest radiograph, one view History: Sepsis Comparison: 02/05/2025 Findings: Single AP view of the chest performed. No focal consolidation or pleural effusion. Coarse mild irregular opacities at the lung bases, similar to prior, favoring atelectasis and/or fibrosis. No pneumothorax. The cardiomediastinal silhouette is within normal limits. Mildly prominent pulmonary vascularity. No evidence for lymphadenopathy. No visualized bony or soft tissue abnormality. Impression: Stable chest radiograph Electronically signed by Sekou Al 02-14-2025 6:24 PM Abdomen/Pelvis CT 02/14/25 18:03 Exam(s): CT ABDOMEN + PELVIS With Contrast IV Amt: 119 ml opti 320 EXAM: CT Abdomen and Pelvis With Intravenous Contrast CLINICAL HISTORY: Reason for exam: septic shock, AHRF, diarrheal illness. TECHNIQUE: Axial computed tomography images of the abdomen and pelvis with intravenous contrast. CTDI is 11.87 mGy and DLP is 344.82 mGy-cm. Automated exposure control was utilized for the study. A dose lowering technique was utilized adhering to the principles of ALARA. CONTRAST: Patient received 119 ml opti 320 of IV contrast COMPARISON: 01/30/2025 FINDINGS: Lung bases: Left lower lobe atelectasis. Heart: Coronary artery calcification. Aortic valve calcifications. ABDOMEN: Liver: Stable intrahepatic biliary ductal dilatation. Slight interval increase in gallbladder distention. Gallbladder and bile ducts: See above. Pancreas: Unremarkable. No mass. No ductal dilation. Spleen: The spleen is stable in appearance when compared with prior exam. Adrenals: Unremarkable. No mass. Kidneys and ureters: Unremarkable. No solid mass. No hydronephrosis. Stomach and bowel: Interval resolution of numerous loops of dilated small bowel. No mucosal thickening. PELVIS: Appendix: No findings to suggest acute appendicitis. Bladder: Distended urinary bladder. Reproductive: Unremarkable as visualized. ABDOMEN and PELVIS: Intraperitoneal space: Unremarkable. No free air. No significant fluid collection. Bones/joints: Stable T12 vertebral body compression fracture. No dislocation. Soft tissues: Unremarkable. Vasculature: Diffuse vascular calcifications of the abdominal aorta and its branch vessels. There are 2 displaced vascular embolization plug seen within a large occluded infrarenal abdominal aortic aneurysm measuring 5.8 x 7.1 cm in AP and transverse dimension. There is occlusion of the common internal and external iliac arteries bilaterally. 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 Lymph nodes: Unremarkable. No enlarged lymph nodes. IMPRESSION: Interval resolution of previously noted small bowel obstruction Stable occlusion of the large infrarenal abdominal aortic aneurysm and both common internal and external iliac arteries. Persistent patency of the right presumed axillary to common femoral artery bypass graft Stable T12 vertebral body compression fracture resulting in 40% vertebral body height loss. Electronically signed by: Jeff Elizondo MD 02/14/25 20:28 PM Chest CTA 02/14/25 18:03 Exam(s): CTA CHEST IV Amt: 119 ml opti 320 EXAM: CT Angiography Chest With Intravenous Contrast CLINICAL HISTORY: Reason for exam: PE. TECHNIQUE: Axial computed tomographic angiography images of the chest with intravenous contrast. CTDI is 11 mGy and DLP is 480 mGy-cm. Automated exposure control was utilized for the study. A dose lowering technique was utilized adhering to the principles of ALARA. MIP reconstructed images were created and reviewed. COMPARISON: No relevant prior studies available. FINDINGS: Pulmonary arteries: Exam limited secondary to patient respiratory motion. No large central pulmonary embolism. Distention of the main pulmonary artery suggesting pulmonary arterial hypertension Aorta: No acute findings. No thoracic aortic aneurysm. Other arteries: Patent proximal right axillary to presumed common femoral artery bypass graft. Lungs: Diffuse changes COPD. No mass. No consolidation. Left lower lobe atelectasis Pleural space: Trace left pleural effusion No pneumothorax. Heart: Cardiomegaly. Coronary artery calcifications. No significant pericardial effusion. No evidence of RV dysfunction. Bones/joints: No acute fracture. No dislocation. Soft tissues: Unremarkable. Lymph nodes: Unremarkable. No enlarged lymph nodes. IMPRESSION: No large central pulmonary embolus Trace left pleural effusion Left lower lobe atelectasis Diffuse changes COPD. Electronically signed by: Jeff Elizondo MD 02/14/25 20:32 PM Discharge Plan Visit Data Chief Complaint: Fever Stated Complaint: FEVER, BACK HURTS, CONFUSION AND SHAKES ED Provider: Royce Florian Discharge Problem: Septic shock, Complicated urinary tract infection, Acute hypoxic respiratory failure, Hypomagnesemia, Acute hyponatremia, Hypokalemia, Acute non-ST elevation myocardial infarction (NSTEMI) Patient Disposition: Admitted As Inpatient Condition: Critical Discharge Instructions Interventions: ED Discharge Assessment Last Done: 02/14/25 22:24
[2025-02-14 18:23] LABS: Hematocrit (blood only) 33.1 % (37.0-47.0); Hemoglobin 10.7 g/dl (12.0-16.0); Mean Corpuscular Hemoglobin 29.0 pg (25.0-34.0); Mean Corpuscular Volume 89.7 fL (80.0-100.0); Platelet Count 524 K/uL (130-400); RDW Standard Deviation 45.1 fL (36.4-46.3); Red Blood Count 3.69 M/uL (4.20-5.40); White Blood Count 13.17 K/ul (4.8-10.8)
--- NOTE | 2025-02-14 18:24 | XRay Report ---
Chest radiograph, one view History: Sepsis Comparison: 02/05/2025 Findings: Single AP view of the chest performed. No focal consolidation or pleural effusion. Coarse mild irregular opacities at the lung bases, similar to prior, favoring atelectasis and/or fibrosis. No pneumothorax. The cardiomediastinal silhouette is within normal limits. Mildly prominent pulmonary vascularity. No evidence for lymphadenopathy. No visualized bony or soft tissue abnormality. Impression: Stable chest radiograph Electronically signed by Sekou Al 02-14-2025 6:24 PM
[2025-02-14 18:28] LABS: Base Excess VBG -2.7 mEq/L; HCO3 VBG 21 mmol/L; Oxygen Saturation VBG 83.0 %; PCO2 VBG 31 mmHg (38-50); PO2 VBG 51 mmHg; pH VBG 7.43 (7.36-7.41)
[2025-02-14] MEDS: CEFEPIME 2000MG 2,000 MG/20 ML SYR IV STA (18:40)
[2025-02-14] MEDS: ACETAMINOPHEN 1,000 MG/100 ML VIAL IV STA (18:40)
[2025-02-14] MEDS: ALBUT/IPRATROP 3MG/0.5MG NEB 3 ML VIAL NEB STA (18:40)
[2025-02-14 18:43] LABS: Immature Granulocytes # (auto) 0.07 K/uL (0.01-0.20); Immature Granulocytes % (auto) 0.5 %
[2025-02-14] MEDS ORDERED: VANCOMYCIN CONSULT ACTIVE PRN (18:50)
[2025-02-14] MEDS: NOREPINEPHRINE/D5W 4 MG/250 ML PLCT IV SCH (18:53)
[2025-02-14] MEDS: SODIUM CHLORIDE 0.9% 500 ML IV ONE (19:00)
[2025-02-14 19:04] LABS: Alanine Aminotransferase 16.0 U/L (7-52); Alkaline Phosphatase 120.0 U/L (34-104); Anion Gap 15.0 (3-11); Bilirubin,Total 0.8 mg/dl (0.2-1.0); Blood Urea Nitrogen 15.0 mg/dl (6-23); Calcium 8.4 mg/dl (8.6-10.3); Carbon Dioxide 20.0 mmol/L (21-32); Chloride 97.0 mmol/L (98-107); Creatinine Clr Calc Pharmacy 45.6 ml/min; Glucose 160.0 mg/dl (70-99(Fasting)); Magnesium 1.4 mg/dl (1.7-2.4); Potassium 3.4 mmol/L (3.5-5.1); Sodium 132.0 mmol/L (136-145); Total Protein 6.6 gm/dl (6.0-8.3)
[2025-02-14] MEDS: VANCOMYCIN HCL 1,000 MG/270 ML BAG IV ONE (19:05)
[2025-02-14 19:25] LABS: Chlamydia pneumoniae PCR Not Detected (NotDetected); Coronavirus 229E PCR Not Detected (NotDetected); Coronavirus CoV-2 (COVID19)PCR Not Detected (NotDetected); Coronavirus HKU1 PCR Not Detected (NotDetected); Coronavirus NL63 PCR Not Detected (NotDetected); Coronavirus OC43PCR Not Detected (NotDetected); Human Metapneumovirus PCR Not Detected (NotDetected); Parainfluenza Virus 1 PCR Not Detected (NotDetected); Parainfluenza Virus 2 PCR Not Detected (NotDetected); Parainfluenza Virus 3 PCR Not Detected (NotDetected); Parainfluenza Virus 4 PCR Not Detected (NotDetected); Respiratory Syncytial VirusPCR Not Detected (NotDetected); Rhinovirus/Enterovirus PCR Not Detected (NotDetected)
[2025-02-14] MEDS: OPTIRAY 320 125ml IV ONE (19:38)
[2025-02-14] MEDS: STAT IV Infusion **Titration per Protocol STA (20:04)
[2025-02-14] MEDS: MAGNESIUM SULFATE / D5W 1 GM/100 ML BAG IV SCH ×2 (20:23→23:43)
--- NOTE | 2025-02-14 20:29 | CT Scan Report ---
Exam(s): CT ABDOMEN + PELVIS With Contrast IV Amt: 119 ml opti 320 EXAM: CT Abdomen and Pelvis With Intravenous Contrast CLINICAL HISTORY: Reason for exam: septic shock, AHRF, diarrheal illness. TECHNIQUE: Axial computed tomography images of the abdomen and pelvis with intravenous contrast. CTDI is 11.87 mGy and DLP is 344.82 mGy-cm. Automated exposure control was utilized for the study. A dose lowering technique was utilized adhering to the principles of ALARA. CONTRAST: Patient received 119 ml opti 320 of IV contrast COMPARISON: 01/30/2025 FINDINGS: Lung bases: Left lower lobe atelectasis. Heart: Coronary artery calcification. Aortic valve calcifications. ABDOMEN: Liver: Stable intrahepatic biliary ductal dilatation. Slight interval increase in gallbladder distention. Gallbladder and bile ducts: See above. Pancreas: Unremarkable. No mass. No ductal dilation. Spleen: The spleen is stable in appearance when compared with prior exam. Adrenals: Unremarkable. No mass. Kidneys and ureters: Unremarkable. No solid mass. No hydronephrosis. Stomach and bowel: Interval resolution of numerous loops of dilated small bowel. No mucosal thickening. PELVIS: Appendix: No findings to suggest acute appendicitis. Bladder: Distended urinary bladder. Reproductive: Unremarkable as visualized. ABDOMEN and PELVIS: Intraperitoneal space: Unremarkable. No free air. No significant fluid collection. Bones/joints: Stable T12 vertebral body compression fracture. No dislocation. Soft tissues: Unremarkable. Vasculature: Diffuse vascular calcifications of the abdominal aorta and its branch vessels. There are 2 displaced vascular embolization plug seen within a large occluded infrarenal abdominal aortic aneurysm measuring 5.8 x 7.1 cm in AP and transverse dimension. There is occlusion of the common internal and external iliac arteries bilaterally. 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 Lymph nodes: Unremarkable. No enlarged lymph nodes. IMPRESSION: Interval resolution of previously noted small bowel obstruction Stable occlusion of the large infrarenal abdominal aortic aneurysm and both common internal and external iliac arteries. Persistent patency of the right presumed axillary to common femoral artery bypass graft Stable T12 vertebral body compression fracture resulting in 40% vertebral body height loss. Electronically signed by: Jeff Elizondo MD 02/14/25 20:28 PM
--- NOTE | 2025-02-14 20:33 | CT Scan Report ---
Exam(s): CTA CHEST IV Amt: 119 ml opti 320 EXAM: CT Angiography Chest With Intravenous Contrast CLINICAL HISTORY: Reason for exam: PE. TECHNIQUE: Axial computed tomographic angiography images of the chest with intravenous contrast. CTDI is 11 mGy and DLP is 480 mGy-cm. Automated exposure control was utilized for the study. A dose lowering technique was utilized adhering to the principles of ALARA. MIP reconstructed images were created and reviewed. COMPARISON: No relevant prior studies available. FINDINGS: Pulmonary arteries: Exam limited secondary to patient respiratory motion. No large central pulmonary embolism. Distention of the main pulmonary artery suggesting pulmonary arterial hypertension Aorta: No acute findings. No thoracic aortic aneurysm. Other arteries: Patent proximal right axillary to presumed common femoral artery bypass graft. Lungs: Diffuse changes COPD. No mass. No consolidation. Left lower lobe atelectasis Pleural space: Trace left pleural effusion No pneumothorax. Heart: Cardiomegaly. Coronary artery calcifications. No significant pericardial effusion. No evidence of RV dysfunction. Bones/joints: No acute fracture. No dislocation. Soft tissues: Unremarkable. Lymph nodes: Unremarkable. No enlarged lymph nodes. IMPRESSION: No large central pulmonary embolus Trace left pleural effusion Left lower lobe atelectasis Diffuse changes COPD. Electronically signed by: Jeff Elizondo MD 02/14/25 20:32 PM
[2025-02-14] MEDS: PLASMA-LYTE A 500 ML IV ONE (21:00)
--- NOTE | 2025-02-14 22:25 | Critical Care Consultation ---
Date of Consultation February 14, 2025 Assessment & Plan (1) Septic shock: (2) Electrolyte abnormality: (3) Elevated troponin: (4) Shock: Plan Reason Critically Ill: 84 YOF presents with SIRS criteria, refractory hypotension requiring vasopressor support. Source not identified at this time. Neuro - No acute needs CAM ICU: NEGATIVE - chronic low back pain- no change in symptoms- no change in neurological exam and is without any incontinence. Cardiac - Shock unspecified, elevated troponin, HX: CAD, MR, AAA (embolized), HFmrEF - Shock with SIRS criteria- Organ dysfunction- lungs (oxygen need), elevated troponin, Lactate negative- at this time there is no clear source of infection, however we are awaiting urine sample. - Fever, leukocytosis with elevated NLR, elevated PCT- supporting distributive shock - Continue with resuscitation of volume- currently has received 1.5 ML of crystalloid which would be her minimal 30ml/kg - Continue with Vasopressor support with LEVOphed to maintain MAPS > 65- if further support needed consider vasopressin - Await blood and urine cultures - Follow organ perfusion with bedside POCUS (currently hyperdynamic appearing), urine output and trending of end organ biomarkers - May also have component of hypovolemia secondary to diarrhea- supported by multiple electrolyte disturbances and dry mucous memebranes - Elevated HsCTNI- she is without STEMI on her ECG, however nonspecific T wave changes- but nothing dynamic appearing - At this time demand vs. ORLIN/NSTEMI- she did have one episode of chest pressure in the ER- this was relieved with Fentanyl - We will trend her symptoms and Electrical tracings as well as her cardiac enzymes - No obvious RWMA or reduction of EF on bedside POCUS- obtain official ECHO in am - Hospitalist has initiated heparin infusion- support this at this time given degree of troponin elevation- however without true anginal symptoms at this time - is possible due to the degree of hypotension, tachycardia, and hypoxia she did have some mismatch - did have cardiac evalution on previous admission favoring medical management- however as above her enzymes were not at this level - Will have to monitor for any bleeding source as well - Currently do not feel this shock is cardiogenic in nature- however will follow - For her HFmrEF- ECHO 02/03/25- EF 40-45% with lateral wall akinesis and global hypokinesis of LV moderate MR with grade I diastolic dysfunction. Respiratory - Hypoxia without respiratory failure, Hx: COPD - CTA chest without acute PE or opacity/ large effusion - is with intralobular thickening- likely has undiagnosed COPD - Hypoxia has improved with increasing of blood pressure and slowing of heart rate- we will continue to wean support GI - Diarrhea - Previous stool samples reviewed- no infective organism via cultures obtained - imaging as interpreted by radiologist - reports improvement in her dilation and no evidence of remaining pancolitis - Follow symptoms - replace intravascular volume as above RENAL/LYTES - multiple electrolyte disturbances, - likely secondary to diarrhea- hyponatremia mild, hypomag moderate - replace volume to euvolemia - replete mag - further replacement- ICU electrolyte protocol - No acute needs - will place schmidt and send UA ENDO - No acute needs - ICU hyperglycemic protocol HEME - anemia, 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 Anemia - likely chronic- normocytic at this time; thrombocytosis- 524- likely secondary to anemia - continue supportive care - transfuse for HGB <8.0, active bleeding, or symptomatic - Appears to be on Xarelto for her PAD- Hold this while in ICU and heparin insfusion as above until clinical course becomes more clear ID - SIRS with organ dysfunction- source urinary possible - Continue broad spectrum abx - await culture data - no neurological deficits at this time LINES/IV ACCESS - PIV, Schmidt Continue use of these lines - If vasopressors require escalation or multiple- patient may require CVL/Warren DVT PROPHYLAXIS - SCDS, Heparin infusion DISPO: ICU while on vasopressors I have personally spent 50 minutes of critical care time in the direct management of this patient. This is a life/limb threatening event. This includes time spent evaluating patient, direct bedside care, chart review, placing orders, interpretation of diagnostic studies, discussion with consultants, patient, and family members, as well as other required patient management activities. This time is exclusive of all separately billable procedures, and teaching time and separate from and in addition to any other critical care service time. Thank you for allowing us to participate in the care of this patient. Please refer to my attending physician's documentation for any further recommendations. Supervising Physician Co-Signing Physician Notes History present illness: Patient is a 84-year-old female with a history of dyslipidemia, prediabetes, chronic hypoxic respiratory failure, PVD with claudication on Xarelto, carotid artery stenosis, history of iliac aneurysm, hypertension, aortic aneurysm status post embolization in 2021, CAD status post PCI, CHF, T12 compression fracture. The patient presented to the emergency department 02/14/2025 with confusion, fevers and diarrhea. The patient has a recent medical history of hospital admission from 01/30/2025 to 02/05/2025. She was treated with severe sepsis secondary to acute diarrheal illness and pancolitis. The patient was treated with vancomycin, Zosyn and Augmentin during that hospital stay. She also had a rectal bleed that required a unit of PRBCs and iron transfusion. Her home anticoagulation was resumed prior to discharge. Upon arrival to the hospital at this time the patient was awake and alert and able to give a history. Family was at bedside. The patient had fevers at home up to 103 F. She also was having diarrhea at home. Intermittent confusion. She had endorsed some chest pain earlier in the day but denied any active chest pain. She denied dyspnea or abdominal pain. In the emergency department she was tachycardic with hypotension. Slightly hypoxic with a saturation of 87% on 2 L of oxygen. She was given crystalloids with minimal improvement in her blood pressure therefore norepinephrine was started. Lactic was found to be elevated at 3.4 which trended down to 1.4 after crystalloids. Initial troponin was elevated at 1395 and increased up to 4679. EKG was concerning for some ST elevation in the lateral leads repeat EKG showed resolution of this. Cardiology was notified. Procalcitonin was elevated at 1.39. BNP was elevated at 599. She had significant leukocytosis. Urinalysis was significant for trace ketones, 4+ bacteria, positive nitrates, 2+ leukocyte esterase and greater than 50 WBCs. The patient was taken for CT imaging which showed a trace left pleural effusion but no other acute findings within the chest. CT of the abdomen pelvis showed stable occlusion of large infrarenal abdominal aortic aneurysm and both common internal and external iliac arteries, patency of right femoral artery bypass graft. The patient was started on vancomycin and cefepime. Due to the patient's shock state critical care was consulted. Reason Critically Ill: Circulatory shock, likely septic shock UTI/pyelonephritis Gram-negative bacteremia NSTEMI, elevated troponin, peaked at 4000 Mild hyponatremia Acute hypoxic respiratory failure Pulmonary edema Lactic acidosis Neuro: Awake alert this morning. No encephalopathy appreciated today. Cardiac: Circulatory shock, likely septic shock NSTEMI Continue supportive care with vasopressors for goal MAP 65 mmHg Lactic acidosis has normalized indicating improved tissue perfusion Echocardiogram is pending Troponin has peaked, no need to trend further at this time. Patient is on Xarelto at home, Xa level is high, transitioning heparin to PTT protocol Will consider cardiology consultation pending echo results, of note they were notified when the patient arrived and did not recommend intervention at that time. Respiratory: Acute hypoxic respite failure Pulmonary edema Requiring more supplemental oxygen, desaturates easily Chest x-ray today indicative of pulmonary edema, BNP is elevated Echocardiogram is pending Continue oxygen supplementation, we will consider starting Lasix tomorrow if patient remains off of pressors GI: May start clear liquid diet and advance as tolerated. RENAL/LYTES: Lactic acidosis Mild hyponatremia Mild hypokalemia Monitor and replace electrolytes as indicated Lactic acid has improved, no need to trend further at this time Monitor urine output closely Will consider diuresis tomorrow : Urinary tract infection, pyelonephritis Bacteremia likely secondary to pyelonephritis Schmidt catheter, monitor urine output. ENDO: Okay to start diet. Blood sugars acceptable at this time. HEME: CBC acceptable today, no evidence of acute anemia. Continue to monitor with daily labs. ID: Gram-negative bacteremia UTI with pyelonephritis Antibiotics adjusted to Rocephin 2 g daily. Follow final sensitivities for cultures --Prophylaxis VTE: Heparin infusion GI: May start clear liquid diet and advance as tolerated Diet: Diet as above Plan: Patient is critically ill and will remain in the ICU. Source of her shock seem to be septic shock. Likely pyelonephritis leading to bacteremia. Antibiotics have been adjusted. Cultures have yet to finalize, we will follow these. Troponins peaked around 4000. Echocardiogram is still pending and we will follow-up on this. If echocardiogram shows significant decrease in EF we will consider cardiology consultation. Continue heparin drip for now. Patient has some new hypoxia, x-ray looks like pulmonary edema which fits her clinical picture. Continue oxygen supplementation, we will consider the resuscitation tomorrow as long as she remains out of shock. I have personally spent 50 minutes of critical care time in the direct management of this patient. This is a life/limb threatening event. This includes time spent evaluating patient, direct bedside care, chart review, placing ord ers, interpretation of diagnostic studies, discussion with consultants, patient, and family members, as well as other required patient management activities. This time is exclusive of all separately billable procedures, and teaching time and separate from and in addition to any other critical care service time. History of Present Illness Reason for Consultation: shock unspecified Requesting Physician: bryan raymond MD Attending Physician: Bryan Raymond MD History of Present Illness 84 YOF with medical history of: PAD with LT. BKA, CAD (stent in [place] 2004), AAA embolization in 2021, HTN, HLD, HFmrEF, MR, chronic low back pain, osteopenia. Patient with prvious admission on 01/31/25 for proctocolitis, anemia, and chest pain- her rectal bleeding was associated with hemorrhoids, she completed a course of Zosyn and was discharged. She reports back to the ER today secondary to diarrhea and fatigue. She was found to meet SIRS critieria with tachycardia, hypotension, and hypoxia as well with elevated WBC count and reported fever at home of 103. Patient reports diarrhea over the past 3 days, she is unable to relate the eppisodes to eating or not eating, and has noted that her stools have been black but also she is on iron. She denies any blood on toilet paper as well, the diarrhea is not associated with abdominal pain or bloating as her previous admission. She also complains of back pain, but this is chronic for her and she has not noted any change in these symptoms in association with the above. In the ER she was initially requiring 5L NC and this has been decreased to 3L on my evaluation. She had routine labs performed to include HsCTNI, and blood cultures. She was given 1.5L crystalloid, and started on LEVOphed for low blood pressure as well as Vancomycin and Cefepime. Patient also had CTA of the chest performed and CT a/p with IV contrast. CT a/p- was without noted bleeding of AAA and patent stents and improvement in her dilation of small loops of bowel. No obstruction reported or other pathology. CTA of the chest was noted without PE, but noting likely pulmonary artery hypertension. No plueral or pericardial effusion. Patient symptoms improved with tachycardia and tachypnea with resuscitation. We are still awaiting urine output and urine sample at this time. Patient will be admitted to the ICU for continued work up of possible infectious etiology, support and weaning of hemodynamics medications. CODE: FULL Allergies Allergy/AdvReac Type Severity Reaction Status Date / Time diphenhydramine AdvReac Intermediate heart Verified 01/04/25 10:36 racing Home Medications Medication Instructions Recorded Confirmed Type atorvastatin 40 mg tablet (Lipitor) 40 mg PO QPM 03/24/18 02/14/25 History metoprolol tartrate 50 mg tablet 50 mg PO BID 03/24/18 02/14/25 History (Lopressor) multivitamin 1 tab PO QAM 03/24/18 02/14/25 History furosemide 40 mg tablet (Lasix) 40 mg PO BID 08/06/19 02/14/25 History aspirin 81 mg tablet,delayed 81 mg PO QAM #0 tabs 08/07/19 02/14/25 Rx release rivaroxaban 20 mg tablet (Xarelto) 20 mg PO HS #0 tabs 08/07/19 02/14/25 Rx cilostazol 100 mg tablet 100 mg PO BID 03/06/20 02/14/25 History omega 8-eww-pxj-fish oil 300 1 cap PO QAM 02/20/23 02/14/25 History mg-1,000 mg capsule (Fish Oil) isosorbide mononitrate 30 mg 30 mg PO QAM #30 tabs 02/22/23 02/14/25 Rx tablet,extended release 24 hr calcium carbonate (Calcium 600) 600 mg PO DAILY 07/14/23 02/14/25 History nitroglycerin 0.4 mg sublingual 0.4 mg sublingual Q5M PRN Chest 07/12/24 02/14/25 Rx tablet (Nitrostat) Pain #20 tabs potassium chloride 20 mEq 20 meq PO AMHS 01/30/25 02/14/25 History tablet,extended release L.acidop,casei,lactis,rham-B.lact,brandon 10 cap PO DAILY #10 caps 02/05/25 02/14/25 Rx 625 mg (10 billion cell) capsule (Advanced Probiotic) ferrous sulfate 325 mg (65 mg 325 mg PO BID #60 tabs 02/05/25 02/14/25 Rx iron) tablet,delayed release lidocaine 4 % topical patch 1 patch topical DAILY 10 days #10 02/05/25 02/14/25 Rx ea tramadol 50 mg tablet 50 mg PO Q6 PRN Pain, Moderate 08/20/25 08/20/25 History Patient History Medical History Prediabetes Wheelchair dependence History of recent hospitalization 01/2023 [facility] - chest pain On home O2 qHS On anticoagulant therapy Lower GI bleed HISTORY OF FROM HEMORRHOID Peripheral vascular disease Osteoarthritis Hypertension controlled, stable per pt Hyperlipidemia Surgical History S/P insertion of iliac artery stent History of cardiac cath 02/22/23 - [facility] - CP - no stents. History of esophagogastroduodenoscopy (EGD) History of incision and drainage left inner thigh 02/08/2020: LMA#4 atraumatic x 1. No issues per anesthesia postop progress note. 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-DOES NOT WEAR PROSTHESIS History of appendectomy History of bilateral tubal ligation H/O breast surgery X 2-BENIGN LUMPECTOMY Previous back surgery BONE SPUR REMOVED Family History Son Family history of diabetes mellitus Other No family history of adverse response to anesthesia Social History Smoking Status: Former smoker Tobacco Type: Cigarettes Smoking End Date: 20 years ago; Second Hand Exposure: No; Do You Dip or Chew Tobacco: No; Hx Alcohol Use: Yes Alcohol type: beer Hx Substance Use: No Preferred Language: [place] Islander Communication Ability: Effective Wig Comber Required: No Beliefs That Will Affect Care: None marital status: Current Living Situation: Spouse Current Living Situation Comment: [facility]OUSE Other Information That Helps Us Care for You: No Feels Safe at Home: Yes Safety Concerns: Feels Safe At This Time Assistive Devices: Denture - Upper, Denture - Lower, Oxygen - at Night and Wheelchair Review of Systems Review of Systems: REVIEW OF SYSTEMS: Constitutional:(+), sweats or chills Eyes: No diplopia, no worsening or blurred vision ENT: normal hearing, no trouble swallowing Respiratory: No cough, sputum, dyspnea at rest or on exertion Cardiovascular: No chest pain, tightness or palpitations Abdomen: (+) nausea, vomiting, diarrhea, No pain, or constipation Musculoskeletal: (+) chronic low back pain, joint pain, calf pain, swelling Neurologic: No weakness, numbness/tingling, or balance problems Psychiatric: No anxiety or depression Skin: No rash or itch Physical Exam Physical Exam: PHYSICAL EXAM: General: awake, alert, comfortable appearing Head: Normocephalic, atraumatic ENT: PERRLA, EOMI, no pharyngeal exudate, mucous membranes dry Neuro: AAO x 3, speech clear and appropriate, strength intact bilaterally 5/5, sensation intact and equal all extremities and dermatomes, no pronator drift Chest: equal rise and fall of the chest, no accessory muscle use, Clear to auscultation, on 2l Cardiac: Regular rate and rhythm, telemetry reviewed- sinus tachycardia, skin warm dry, cap refill <3 seconds, peripheral pulses +2 no JVD, grade II systolic LSB murmur, no JVD, no edema GI: NABS x 4 quadrants, soft, nontender to palpation, no rebound, guarding or tenderness : awaiting urine Skin: no rash or erythema Results & Data Results & Data Vital Signs (Past 12 Hours) Vital Signs Temp Pulse Pulse Resp BP BP Pulse Ox 02/14/25 21:45 98/69 L 02/14/25 21:39 114 H 20 92 02/14/25 21:30 102/66 02/14/25 21:30 102/66 02/14/25 21:30 102/66 02/14/25 21:30 113 H 21 93 02/14/25 21:30 37.5 C 02/14/25 21:23 31.9 C L 64 20 117/64 95 02/14/25 21:18 114 H 19 93 02/14/25 21:15 96/68 L 02/14/25 21:15 96/68 L 02/14/25 21:06 115 H 20 93 02/14/25 21:00 95/67 L 02/14/25 21:00 119 H 22 95 02/14/25 21:00 95/67 L 02/14/25 21:00 95/67 L 02/14/25 21:00 95/67 L 02/14/25 20:45 119 H 22 92 02/14/25 20:45 88/59 L 02/14/25 20:30 122 H 21 02/14/25 20:15 121 H 18 94 02/14/25 20:15 103/67 02/14/25 20:00 104/69 02/14/25 19:57 119 H 19 96 02/14/25 19:54 121 H 20 94 02/14/25 19:50 103/65 02/14/25 19:50 103/65 02/14/25 19:30 02/14/25 19:18 123 H 19 95 02/14/25 19:15 105/66 02/14/25 19:15 105/66 02/14/25 19:00 80/49 L 02/14/25 19:00 125 H 16 95 02/14/25 18:58 127 H 24 84/55 L 99 02/14/25 18:57 128 H 16 100 02/14/25 18:56 84/55 L 02/14/25 18:56 84/55 L 02/14/25 18:46 74/48 L 02/14/25 18:46 123 H 22 74/48 L 98 02/14/25 18:30 122 H 22 90/65 L 98 02/14/25 18:03 135 H 17 94/63 L 96 02/14/25 17:53 130 H 02/14/25 17:42 37.9 C H 133 H 28 H 92/69 L 87 L O2 Del Method O2 Flow Rate 02/14/25 21:45 02/14/25 21:39 02/14/25 21:30 02/14/25 21:30 02/14/25 21:30 02/14/25 21:30 02/14/25 21:30 02/14/25 21:23 02/14/25 21:18 02/14/25 21:15 02/14/25 21:15 02/14/25 21:06 02/14/25 21:00 02/14/25 21:00 02/14/25 21:00 02/14/25 21:00 02/14/25 21:00 02/14/25 20:45 02/14/25 20:45 02/14/25 20:30 02/14/25 20:15 02/14/25 20:15 02/14/25 20:00 02/14/25 19:57 02/14/25 19:54 02/14/25 19:50 02/14/25 19:50 02/14/25 19:30 Nasal Cannula 02/14/25 19:18 02/14/25 19:15 02/14/25 19:15 02/14/25 19:00 02/14/25 19:00 02/14/25 18:58 Nasal Cannula 5 02/14/25 18:57 02/14/25 18:56 02/14/25 18:56 02/14/25 18:46 02/14/25 18:46 5 02/14/25 18:30 Nasal Cannula 5 02/14/25 18:03 Nasal Cannula 5 02/14/25 17:53 02/14/25 17:42 Room Air Laboratory Results Abnormal lab results 02/14/25 02/14/25 02/14/25 Range/Units 18:00 18:13 20:46 WBC 13.17 H (4.8-10.8) K/ul RBC 3.69 L (4.20-5.40) M/uL Hgb 10.7 L (12.0-16.0) g/dl Hct 33.1 L (37.0-47.0) % Plt Count 524 H (130-400) K/uL Neut # (Auto) 12.58 H (1.40-6.50) K/uL Lymph # (Auto) 0.18 L (1.20-3.40) K/uL VBG pH 7.43 H (7.36-7.41) VBG pCO2 31 L (38-50) mmHg Sodium 132 L (136-145) mmol/L Potassium 3.4 L (3.5-5.1) mmol/L Chloride 97 L (98-107) mmol/L Carbon Dioxide 20 L (21-32) mmol/L Anion Gap 15 H (3-11) Glucose 160 H (70-99(Fasting)) mg/dl Lactate 3.4 H* (0.4-2.0) mmol/L Calcium 8.4 L (8.6-10.3) mg/dl Magnesium 1.4 L (1.7-2.4) mg/dl Alkaline Phosphatase 120 H (34-104) U/L Troponin I High Sens 1395.6 H* 4679.6 H* D (0-14) pg/ml B-Natriuretic Peptide 599 H (0-100) pg/ml Albumin 3.1 L (3.4-5.0) gm/dl Procalcitonin 1.35 H (0-0.5) ng/ml Diagnostic Findings Chest X-Ray 02/14/25 17:52 Chest radiograph, one view History: Sepsis Comparison: 02/05/2025 Findings: Single AP view of the chest performed. No focal consolidation or pleural effusion. Coarse mild irregular opacities at the lung bases, similar to prior, favoring atelectasis and/or fibrosis. No pneumothorax. The cardiomediastinal silhouette is within normal limits. Mildly prominent pulmonary vascularity. No evidence for lymphadenopathy. No visualized bony or soft tissue abnormality. Impression: Stable chest radiograph Electronically signed by Sekou Al 02-14-2025 6:24 PM Abdomen/Pelvis CT 02/14/25 18:03 Exam(s): CT ABDOMEN + PELVIS With Contrast IV Amt: 119 ml opti 320 EXAM: CT Abdomen and Pelvis With Intravenous Contrast CLINICAL HISTORY: Reason for exam: septic shock, AHRF, diarrheal illness. TECHNIQUE: Axial computed tomography images of the abdomen and pelvis with intravenous contrast. CTDI is 11.87 mGy and DLP is 344.82 mGy-cm. Automated exposure control was utilized for the study. A dose lowering technique was utilized adhering to the principles of ALARA. CONTRAST: Patient received 119 ml opti 320 of IV contrast COMPARISON: 01/30/2025 FINDINGS: Lung bases: Left lower lobe atelectasis. Heart: Coronary artery calcification. Aortic valve calcifications. ABDOMEN: Liver: Stable intrahepatic biliary ductal dilatation. Slight interval increase in gallbladder distention. Gallbladder and bile ducts: See above. Pancreas: Unremarkable. No mass. No ductal dilation. Spleen: The spleen is stable in appearance when compared with prior exam. Adrenals: Unremarkable. No mass. Kidneys and ureters: Unremarkable. No solid mass. No hydronephrosis. Stomach and bowel: Interval resolution of numerous loops of dilated small bowel. No mucosal thickening. PELVIS: Appendix: No findings to suggest acute appendicitis. Bladder: Distended urinary bladder. Reproductive: Unremarkable as visualized. ABDOMEN and PELVIS: Intraperitoneal space: Unremarkable. No free air. No significant fluid collection. Bones/joints: Stable T12 vertebral body compression fracture. No dislocation. Soft tissues: Unremarkable. Vasculature: Diffuse vascular calcifications of the abdominal aorta and its branch vessels. There are 2 displaced vascular embolization plug seen within a large occluded infrarenal abdominal aortic aneurysm measuring 5.8 x 7.1 cm in AP and transverse dimension. There is occlusion of the common internal and external iliac arteries bilaterally. 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 Lymph nodes: Unremarkable. No enlarged lymph nodes. IMPRESSION: Interval resolution of previously noted small bowel obstruction Stable occlusion of the large infrarenal abdominal aortic aneurysm and both common internal and external iliac arteries. Persistent patency of the right presumed axillary to common femoral artery bypass graft Stable T12 vertebral body compression fracture resulting in 40% vertebral body height loss. Electronically signed by: Jeff Elizondo MD 02/14/25 20:28 PM Chest CTA 02/14/25 18:03 Exam(s): CTA CHEST IV Amt: 119 ml opti 320 EXAM: CT Angiography Chest With Intravenous Contrast CLINICAL HISTORY: Reason for exam: PE. TECHNIQUE: Axial computed tomographic angiography images of the chest with intravenous contrast. CTDI is 11 mGy and DLP is 480 mGy-cm. Automated exposure control was utilized for the study. A dose lowering technique was utilized adhering to the principles of ALARA. MIP reconstructed images were created and reviewed. COMPARISON: No relevant prior studies available. FINDINGS: Pulmonary arteries: Exam limited secondary to patient respiratory motion. No large central pulmonary embolism. Distention of the main pulmonary artery suggesting pulmonary arterial hypertension Aorta: No acute findings. No thoracic aortic aneurysm. Other arteries: Patent proximal right axillary to presumed common femoral artery bypass graft. Lungs: Diffuse changes COPD. No mass. No consolidation. Left lower lobe atelectasis Pleural space: Trace left pleural effusion No pneumothorax. Heart: Cardiomegaly. Coronary artery calcifications. No significant pericardial effusion. No evidence of RV dysfunction. Bones/joints: No acute fracture. No dislocation. Soft tissues: Unremarkable. Lymph nodes: Unremarkable. No enlarged lymph nodes. IMPRESSION: No large central pulmonary embolus Trace left pleural effusion Left lower lobe atelectasis Diffuse changes COPD. Electronically signed by: Jeff Elizondo MD 02/14/25 20:32 PM Medications Administered Norepinephrine Bitartrate (Levophed/D5w) 4 mg in 250 mls @ 14.044 mls/hr IV .[id number] [facility]; Protocol Stop: 03/16/25 18:59 Last Titration: 02/14/25 20:34 Dose: 0.07 mcg/kg/min, 14 mls/hr Documented By: HIGINIO Co-signed By: OUMAR Admin: 02/14/25 18:53 Dose: 0.05 mcg/kg/min, 10 mls/hr Documented By: JR Co-signed By: MR Discontinued Medications Albuterol (Albut/Ipratrop 3mg/0.5mg Neb 3 Ml Vial) 3 ml NEB NOW STA; Protocol Stop: 02/14/25 18:11 Last Admin: 02/14/25 18:40 Dose: 3 ml Documented By: TDM Fentanyl Citrate (Fentanyl Citrate Pf 100 Mcg/2 Ml Vial) 50 mcg IV NOW ONE Stop: 02/14/25 18:29 Last Admin: 02/14/25 18:39 Dose: 50 mcg Documented By: TDM Fentanyl Citrate (Fentanyl Citrate Pf 100 Mcg/2 Ml Vial) 50 mcg IV NOW ONE Stop: 02/14/25 20:07 Last Admin: 02/14/25 20:12 Dose: 50 mcg Documented By: HIGINIO Sodium Chloride (Nss) 1,000 mls @ 999 mls/hr IV .Q1H1M RAYMOND Stop: 02/14/25 19:00 Last Infusion: 02/14/25 20:08 Dose: Infused Documented By: Admin: 02/14/25 18:00 Dose: 999 mls/hr Documented By: TDMani Cefepime HCl (Maxipime 2000mg) 2,000 mg in 20 mls @ 5 mls/min IV NOW STA; Protocol Stop: 02/14/25 17:55 Last Admin: 02/14/25 18:40 Dose: 5 mls/min Documented By: TDM Acetaminophen (Ofirmev) 1,000 mg in 100 mls @ 400 mls/hr IV NOW STA Stop: 02/14/25 18:23 Last Infusion: 02/14/25 18:55 Dose: Infused Documented By: Admin: 02/14/25 18:40 Dose: 400 mls/hr Documented By: TDM Sodium Chloride (Nss) 500 mls @ 999 mls/hr IV .Q31M ONE Stop: 02/14/25 19:20 Last Infusion: 02/14/25 20:08 Dose: Infused Documented By: Admin: 02/14/25 19:00 Dose: 999 mls/hr Documented By: TDMani Vancomycin HCl (Vancomycin Hcl) 1,000 mg in 270 mls @ 200 mls/hr IV NOW ONE; Protocol Stop: 02/14/25 20:10 Last Infusion: 02/14/25 21:27 Dose: Infused Documented By: Admin: 02/14/25 19:05 Dose: 200 mls/hr Documented By: HIGINIO Magnesium Sulfate/Dextrose (Magnesium Sulfate / D5w) 1 gm in 100 mls @ 100 mls/hr IV Q1H RAYMOND Stop: 02/14/25 21:10 Last Admin: 02/14/25 21:22 Dose: 100 mls/hr Documented By: Infusion: 02/14/25 21:22 Dose: Infused Documented By: Admin: 02/14/25 20:23 Dose: 100 mls/hr Documented By: HIGINIO Parenteral Electrolytes (Plasma-Lyte A Ph 7.4) 500 mls @ 999 mls/hr IV .Q31M ONE Stop: 02/14/25 21:05 Last Admin: 02/14/25 21:00 Dose: 999 mls/hr Documented By: HIGINIO Ioversol (Optiray 320 125ml) 119 ml IV ONCE ONE Stop: 02/14/25 19:39 Last Admin: 02/14/25 19:38 Dose: 119 ml Documented By: GAYLE Miscellaneous (Stat Iv Infusion Titration Per Protocol) 1 each N/A NOW STA Stop: 02/14/25 18:51 Last Admin: 02/14/25 20:04 Dose: Not Given Documented By: HIGINIO ECG Additional Comments: Sinus tachycardiawith frequentPremature ventricular complexes Nonspecific T wave abnormality Abnormal ECG When compared with ECG [id number] 19:28,(unconfirmed) No significant change was found Coding Level of Care Code 69443 CRITICAL CARE 1ST 30-74M Diagnoses Septic shock A41.9; R65.21 Electrolyte abnormality E87.8 Elevated troponin R74.8 Shock R57.9
[2025-02-14 22:30] LABS: Appearance Urine Clear (Clear); Bacteria Urine Automated 4+ (None Seen); Epithelial Cell Urine Auto 0-2 /hpf (0-2); Glucose Urine UA Negative (Negative); RBC Urine Automated >20 /hpf (0-2); WBC Urine Automated >50 /hpf (0-5)
[2025-02-14] MEDS ORDERED: Heparin IV Adult Wt-Based Standard *NO* INITIAL Bolus Protocol IV STA (23:14)
[2025-02-14 23:40] LABS: INR 1.3 (0.9-1.1); Partial Thromboplastin Time 34 Seconds (21-31); Prothrombin Time 14.2 Seconds (9.0-12.0)
[2025-02-14] MEDS: POTASSIUM CHLORIDE CRTAB 20 MEQ TABCR PO STA (23:43)
[2025-02-14] MEDS: HEPARIN 25000 UNIT/500 ML D5W 25,000 UNITS/500 ML BAG IV SCH (23:43)
[2025-02-14] MEDS: MAGNESIUM SULFATE / D5W 1 GM/100 ML BAG IV ONE (23:55)
--- NOTE | 2025-02-15 00:39 | History & Physical Report ---
Date of Service February 14, 2025 Assessment & Plan (1) Septic shock: Plan: 84-year-old female with past medical history significant for dyslipidemia, prediabetes, history of acute on chronic respiratory failure with hypoxia, peripheral vascular disease with claudication, carotid stenosis, iliac aneurysm, hypertension, abdominal aortic aneurysm, CAD s/p stent comes from home because of some confusion, fevers and diarrhea and found to be in severe sepsis and se ptic shock. Patient was recently in the hospital was admitted on 01/30/2025 and was discharged on 02/05/2025. During that admission she had severe sepsis secondary to acute diarrheal illness and nonspecific proctitis. During that admission cultures were negative. Initially was treated with Vanco and Zosyn and later was on Augmentin. During that admission she also had rectal bleeding and required 1 unit of PRBCs and also given IV Venofer for iron level less than 10. Xarelto was held but was restarted prior to discharge. She also required IV diuresis for acute CHF and she also found to have acute T12 compression fracture and was seen by orthospine and conservative management recommended. She lives at home with her . and son in the room. Patient is wheelchair-bound. She can transfer to the wheelchair. Today patient had temperature 103 degrees Fahrenheit. Had episodes of diarrhea. And confusion. Currently patient is alert and awake and oriented x 3. Was able to give her history. Earlier had chest pain but currently denies any chest pain. Denies shortness of breath. No headache. No neck pain. No runny nose or sore throat or cough. No nausea. No abdominal pain. Has chronic back pain. Micturating okay. In the ER she was tachycardic. Blood pressure was soft. She was hypoxic , 87% on room air and requiring 2 L oxygen. Even after fluid bolus her blood pressure did not improve and was started on Levophed drip by the ER. Initial lactic acid was 3.4. Repeat lactic acid 1.4. Initial troponin was 1395 and repeat was 4679 and next repeat is 3536. Initial EKG showed some ST elevation in lateral leads but repeat EKG no acute ST elevation seen. ER talked with the cardiology but no intervention planned at this time. UA came back positive. CT A chest no acute findings. Trace left pleural effusion. CT abdomen pelvis stable occlusion of large infrarenal abdominal aortic aneurysm and both common internal/external iliac arteries. And patency of right presumed axillary to common femoral artery bypass graft. Stable T12 vertebral compression fracture. Seems comfortable at this time. Septic shock Presented with fever, diarrhea and some confusion Currently mental status okay CT chest and CT abdomen pelvis okay Respiratory BioFire negative UA is positive, possible cause of her sepsis Will follow stool studies Received IV Vanco and cefepime in the ER which will be continued Received fluids and currently on Levophed drip Close monitor in the ICU Will follow the cultures Appreciate critical care help. NonST elevated DE Initial EKG showed ST elevations in lateral leads but repeat EKG no acute ST elevations Initially had chest pain but that got resolved Troponin elevated at 1395 and repeat 4679 and next level was 3536 Could be ACS versus demand ischemia from septic shock ER talked with interventional cardiology and no intervention planned at this time Held home Xarelto and started on IV heparin N.p.o. Close monitor Follow echo Hyponatremia Sodium 132 Will monitor labs History of CAD status post stent Status post stenting of the circumflex obtuse marginal artery in 2004 Nonobstructive CAD on cardiac catheterization January 2023 Currently on IV heparin Continue aspirin and statin Holding Imdur and metoprolol for septic shock Cardiology consulted History of peripheral vascular disease Status post left AKA in 2015 Bilateral iliac artery stenting in October 2016 Right axillary to femoral and femoral posterior tibial bypass in June 2019 Continue aspirin and statin Follow-up with vascular surgery Infrarenal abdominal aortic aneurysm Status post prior embolization in June 2021 CAT scan today shows 5.8X 7.1 cm aneurysm Mild fusiform dilatation of ascending thoracic aorta 4 cm Needs close follow-up with vascular surgery History of iron deficiency anemia Received one unit prbc and IV Venofer last admission On iron pills Hemoglobin 10.7 Will monitor Diarrhea Follow stool studies Hypoxia Advanced emphysema per imaging studies in the past Continue oxygen support Nebs as needed T12 compression fracture Pain control Nocturnal hypoxia Uses 2 L at bedtime History of alcohol use Will monitor DVT prophylaxis On IV heparin Disposition ICU CODE STATUS Full code History of Present Illness Chief Complaint: Illness Primary Care Provider: Arturo Bermudez MD 84-year-old female with past medical history significant for dyslipidemia, prediabetes, history of acute on chronic respiratory failure with hypoxia, peripheral vascular disease with claudication, carotid stenosis, iliac aneurysm, hypertension, abdominal aortic aneurysm, CAD s/p stent comes from home because of some confusion, fevers and diarrhea and found to be in severe sepsis and septic shock. Patient was recently in the hospital was admitted on 01/30/2025 and was discharged on 02/05/2025. During that admission she had severe sepsis secondary to acute diarrheal illness and nonspecific proctitis. During that admission cultures were negative. Initially was treated with Vanco and Zosyn and later was on Augmentin. During that admission she also had rectal bleeding and required 1 unit of PRBCs and also given IV Venofer for iron level less than 10. Xarelto was held but was restarted prior to discharge. She also required IV diuresis for acute CHF and she also found to have acute T12 compression fracture and was seen by orthospine and conservative management recommended. She lives at home with her . and son in the room. Patient is wheelchair-bound. She can transfer to the wheelchair. Today patient had temperature 103 degrees Fahrenheit. Had episodes of diarrhea. And confusion. Currently patient is alert and awake and oriented x 3. Was able to give her history. Earlier had chest pain but currently denies any chest pain. Denies shortness of breath. No headache. No neck pain. No runny nose or sore throat or cough. No nausea. No abdominal pain. Has chronic back pain. Micturating okay. In the ER she was tachycardic. Blood pressure was soft. She was hypoxic , 87% on room air and requiring 2 L oxygen. Even after fluid bolus her blood pressure did not improve and was started on Levophed drip by the ER. Initial lactic acid was 3.4. Repeat lactic acid 1.4. Initial troponin was 1395 and repeat was 4679 and next repeat is 3536. Initial EKG showed some ST elevation in lateral leads but repeat EKG no acute ST elevation seen. ER talked with the cardiology but no intervention planned at this time. UA came back positive. CTA chest no acute findings. Trace left pleural effusion. CT abdomen pelvis stable occlusion of large infrarenal abdominal aortic aneurysm and both common internal/external iliac arteries. And patency of right presumed axillary to common femoral artery bypass graft. Stable T12 vertebral compression fracture. Seems comfortable at this time. Past medical history. As mentioned above. Past surgical history. Breast lesion excision. Colonoscopy. EGD. Ligation of oviducts. Angioplasty. Left lower extremity stenting x 2 for PVD. Appendectomy. Social history. . Quit smoking 2009. Smoked cigars 20/week. Smoked for 40 years. Alcohol 6 beers twice a week. No drug use. Family history. Father had CAD. Mother had stroke. Allergies Allergy/AdvReac Type Severity Reaction Status Date / Time diphenhydramine AdvReac Intermediate heart Verified 01/04/25 10:36 racing Home Medications Medication Instructions Recorded Confirmed Type atorvastatin 40 mg tablet (Lipitor) 40 mg PO QPM 03/24/18 02/14/25 History metoprolol tartrate 50 mg tablet 50 mg PO BID 03/24/18 02/14/25 History (Lopressor) multivitamin 1 tab PO QAM 03/24/18 02/14/25 History furosemide 40 mg tablet (Lasix) 40 mg PO BID 08/06/19 02/14/25 History aspirin 81 mg tablet,delayed 81 mg PO QAM #0 tabs 08/07/19 02/14/25 Rx release rivaroxaban 20 mg tablet (Xarelto) 20 mg PO HS #0 tabs 08/07/19 02/14/25 Rx cilostazol 100 mg tablet 100 mg PO BID 03/06/20 02/14/25 History omega 5-gur-ead-fish oil 300 1 cap PO QAM 02/20/23 02/14/25 History mg-1,000 mg capsule (Fish Oil) isosorbide mononitrate 30 mg 30 mg PO QAM #30 tabs 02/22/23 02/14/25 Rx tablet,extended release 24 hr calcium carbonate (Calcium 600) 600 mg PO DAILY 07/14/23 02/14/25 History nitroglycerin 0.4 mg sublingual 0.4 mg sublingual Q5M PRN Chest 07/12/24 02/14/25 Rx tablet (Nitrostat) Pain #20 tabs potassium chloride 20 mEq 20 meq PO AMHS 01/30/25 02/14/25 History tablet,extended release L.acidop,casei,lactis,rham-B.lact,brandon 10 cap PO DAILY #10 caps 02/05/25 02/14/25 Rx 625 mg (10 billion cell) capsule (Advanced Probiotic) ferrous sulfate 325 mg (65 mg 325 mg PO BID #60 tabs 02/05/25 02/14/25 Rx iron) tablet,delayed release lidocaine 4 % topical patch 1 patch topical DAILY 10 days #10 02/05/25 02/14/25 Rx ea tramadol 50 mg tablet 50 mg PO Q6 PRN Pain, Moderate 02/14/25 02/14/25 History Past Med/Surg History Problem List (Updated 02/15/25 @ 03:01 by Royce Florian, DO) Acute non-ST elevation myocardial infarction (NSTEMI) (Acute) Hypokalemia (Acute) Acute hyponatremia (Acute) Hypomagnesemia (Acute) Acute hypoxic respiratory failure (Acute) Complicated urinary tract infection (Acute) Septic shock (Acute) Shock Electrolyte abnormality Septic shock Acute CHF Acute heart failure with reduced ejection fraction (HFrEF) Thoracic compression fracture Diarrhea Severe sepsis Rectal bleeding Acute anemia Proctocolitis Sepsis Anemia (Acute) Elevated WBC count (Acute) Abnormal computed tomography of abdomen and pelvis (Acute) AAA (abdominal aortic aneurysm) (Acute) Right sided abdominal pain (Acute) Stented coronary artery HLD (hyperlipidemia) (Chronic) HTN (hypertension) (Chronic) Carotid stenosis (Chronic) PVD (peripheral vascular disease) (Chronic) "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" History of heart artery stent (Chronic) "1997" S/P appendectomy (Chronic) H/O tubal ligation (Chronic) H/O colonoscopy (Chronic) "adenomatous & TVA polyps, diverticulosis, repeat 3 yrs 02/11/2015" Adenomatous polyps Current use of anticoagulant therapy (Acute) Leg wound, right Osteoporosis (Acute) Iliac aneurysm (Acute) Dyslipidemia (Acute) Chronic ischemic heart disease (Acute) Chronic ischemia, myocardial (Acute) Chest pain (Acute) Arteriosclerotic cardiovascular disease (Acute) S/P AKA (above knee amputation) Abscess of left thigh Encounter for pre-operative examination Anemia Chest pain (Acute) Hypoxia Angina at rest Diabetes mellitus, type II AAA (abdominal aortic aneurysm) s/p embolization 06/2021 Dr. Bolanos S/P femoral-popliteal bypass surgery PAD (peripheral artery disease) (Acute) Anemia Hx of arterial bypass of lower limb LEFT LEG 07/13/2019: Grade 2 view, MAC#3, ETT#7.0 atraumatic x 1. No issues per anesthesia postop progress note. CAD (coronary artery disease) stent (1997) Medical History Prediabetes Wheelchair dependence History of recent hospitalization 01/2023 [facility] - chest pain On home O2 qHS On anticoagulant therapy Lower GI bleed HISTORY OF FROM HEMORRHOID Peripheral vascular disease Osteoarthritis Hypertension controlled, stable per pt Hyperlipidemia Surgical History S/P insertion of iliac artery stent History of cardiac cath 02/22/23 - [facility] - CP - no stents. History of esophagogastroduodenoscopy (EGD) History of incision and drainage left inner thigh 02/08/2020: LMA#4 atraumatic x 1. No issues per anesthesia postop progress note. 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-DOES NOT WEAR PROSTHESIS History of appendectomy History of bilateral tubal ligation H/O breast surgery X 2-BENIGN LUMPECTOMY Previous back surgery BONE SPUR REMOVED Family History Son Family history of diabetes mellitus Other No family history of adverse response to anesthesia Social History Smoking Status: Former smoker Tobacco Type: Cigarettes Smoking End Date: 20 years ago; Second Hand Exposure: No; Do You Dip or Chew Tobacco: No; Hx Alcohol Use: Yes Alcohol type: beer Hx Substance Use: No Preferred Language: Trinidadian Communication Ability: Effective Head Trimmer Required: No Beliefs That Will Affect Care: None marital status: Current Living Situation: Spouse Current Living Situation Comment: SPOUSE Other Information That Helps Us Care for You: No Feels Safe at Home: Yes Safety Concerns: Feels Safe At This Time Assistive Devices: Denture - Upper, Denture - Lower, Oxygen - at Night and Wheelchair Review of Systems Review of Systems: All systems reviewed & are unremarkable except as noted in HPI & below Physical Exam Physical Exam: General- Not in acute distress Head- atraumatic Eyes- PERRL. ENT- oropharynx clear Neck- supple, no JVD. Lungs- clear to auscultation no wheezing or crackles Heart- regular rhythm;tachycardia no murmur, no gallop. Abdomen- normal bowel sounds, soft, nontender, no distension Extremities- no pretibial edema, s/p left AKA, no erythema seen Neuro- alert, oriented x 3; PERRL, no facial palsy; no dysarthria; moves extremities Results & Data Results & Data Vital Signs (Past 12 Hours) Vital Signs Temp Pulse Pulse Resp BP BP Pulse Ox 02/14/25 21:23 31.9 C L 64 20 117/64 95 02/14/25 21:00 95/67 L 02/14/25 21:00 119 H 22 95 02/14/25 21:00 95/67 L 02/14/25 21:00 95/67 L 02/14/25 21:00 95/67 L 02/14/25 20:45 119 H 22 92 02/14/25 20:45 88/59 L 02/14/25 20:30 122 H 21 02/14/25 20:15 121 H 18 94 02/14/25 20:15 103/67 02/14/25 20:00 104/69 02/14/25 19:57 119 H 19 96 02/14/25 19:54 121 H 20 94 02/14/25 19:50 103/65 02/14/25 19:50 103/65 02/14/25 19:30 02/14/25 19:18 123 H 19 95 02/14/25 19:15 105/66 02/14/25 19:15 105/66 02/14/25 19:00 80/49 L 02/14/25 19:00 125 H 16 95 02/14/25 18:58 127 H 24 84/55 L 99 02/14/25 18:57 128 H 16 100 02/14/25 18:56 84/55 L 02/14/25 18:56 84/55 L 02/14/25 18:46 74/48 L 02/14/25 18:46 123 H 22 74/48 L 98 02/14/25 18:30 122 H 22 90/65 L 98 02/14/25 18:03 135 H 17 94/63 L 96 02/14/25 17:53 130 H 02/14/25 17:42 37.9 C H 133 H 28 H 92/69 L 87 L O2 Del Method O2 Flow Rate 02/14/25 21:23 02/14/25 21:00 02/14/25 21:00 02/14/25 21:00 08/20/25 21:00 02/14/25 21:00 02/14/25 20:45 02/14/25 20:45 02/14/25 20:30 02/14/25 20:15 02/14/25 20:15 02/14/25 20:00 02/14/25 19:57 02/14/25 19:54 02/14/25 19:50 02/14/25 19:50 02/14/25 19:30 Nasal Cannula 02/14/25 19:18 02/14/25 19:15 02/14/25 19:15 02/14/25 19:00 02/14/25 19:00 02/14/25 18:58 Nasal Cannula 5 02/14/25 18:57 02/14/25 18:56 02/14/25 18:56 02/14/25 18:46 02/14/25 18:46 5 02/14/25 18:30 Nasal Cannula 5 02/14/25 18:03 Nasal Cannula 5 02/14/25 17:53 02/14/25 17:42 Room Air Diagnostic Findings Laboratory Results WBC 13.17 K/ul (4.8-10.8) H 02/14/25 18:00 RBC 3.69 M/uL (4.20-5.40) L 02/14/25 18:00 Hgb 10.7 g/dl (12.0-16.0) L 02/14/25 18:00 Hct 33.1 % (37.0-47.0) L 02/14/25 18:00 MCV 89.7 fL (80.0-100.0) 02/14/25 18:00 MCH 29.0 pg (25.0-34.0) 02/14/25 18:00 MCHC 32.3 g/dL (32.0-36.0) 02/14/25 18:00 RDW Std Deviation 45.1 fL (36.4-46.3) 02/14/25 18:00 RDW Coeff of Jean 13.7 % (11.5-14.5) 02/14/25 18:00 Plt Count 524 K/uL (130-400) H 02/14/25 18:00 MPV 9.5 fL (9.4-12.4) 02/14/25 18:00 Immature Gran % (Auto) 0.5 % 02/14/25 18:00 Neut % (Auto) 95.5 % 02/14/25 18:00 Lymph % (Auto) 1.4 % 02/14/25 18:00 Laurens % (Auto) 2.4 % 02/14/25 18:00 Eos % (Auto) 0.0 % 02/14/25 18:00 Baso % (Auto) 0.2 % 02/14/25 18:00 Neut # (Auto) 12.58 K/uL (1.40-6.50) H 02/14/25 18:00 Lymph # (Auto) 0.18 K/uL (1.20-3.40) L 02/14/25 18:00 Laurens # (Auto) 0.31 K/uL (0.11-0.59) 02/14/25 18:00 Eos # (Auto) 0.00 K/uL (0.00-0.50) 02/14/25 18:00 Baso # (Auto) 0.03 K/uL (0.00-0.20) 02/14/25 18:00 Immature Gran # (Auto) 0.07 K/uL (0.01-0.20) 02/14/25 18:00 PT 14.2 Seconds (9.0-12.0) H 02/14/25 18:00 INR 1.3 (0.9-1.1) H 02/14/25 18:00 APTT 34 Seconds (21-31) H 02/14/25 18:00 PTT Ratio 1.3 02/14/25 18:00 VBG pH 7.43 (7.36-7.41) H 02/14/25 18:13 VBG pCO2 31 mmHg (38-50) L 02/14/25 18:13 VBG pO2 51 mmHg 02/14/25 18:13 VBG HCO3 21 mmol/L 02/14/25 18:13 VBG O2 Saturation 83.0 % 02/14/25 18:13 VBG Base Excess -2.7 mEq/L 02/14/25 18:13 Sodium 132 mmol/L (136-145) L 02/14/25 18:00 Potassium 3.4 mmol/L (3.5-5.1) L 02/14/25 18:00 Chloride 97 mmol/L (98-107) L 02/14/25 18:00 Carbon Dioxide 20 mmol/L (21-32) L 02/14/25 18:00 Anion Gap 15 (3-11) H 02/14/25 18:00 BUN 15 mg/dl (6-23) 02/14/25 18:00 Creatinine 0.79 mg/dl (0.6-1.2) 02/14/25 18:00 Est Cr Clr Drug Dosing 45.6 ml/min 02/14/25 18:00 eGFR 74.17 02/14/25 18:00 BUN/Creatinine Ratio 19.0 (10-20) 02/14/25 18:00 Glucose 160 mg/dl (70-99(Fasting)) H 02/14/25 18:00 POC Glucose 200 mg/dl (70-99) H 02/15/25 00:34 Lactate 1.4 mmol/L (0.4-2.0) 02/14/25 20:46 Calcium 8.4 mg/dl (8.6-10.3) L 02/14/25 18:00 Magnesium 1.4 mg/dl (1.7-2.4) L 02/14/25 18:00 Total Bilirubin 0.8 mg/dl (0.2-1.0) 02/14/25 18:00 Direct Bilirubin 0.2 mg/dl (0-0.2) 02/14/25 18:00 AST 26 U/L (13-39) 02/14/25 18:00 ALT 16 U/L (7-52) 02/14/25 18:00 Alkaline Phosphatase 120 U/L (34-104) H 02/14/25 18:00 Troponin I High Sens 3536.3 pg/ml (0-14) H* D 02/14/25 23:28 B-Natriuretic Peptide 599 pg/ml (0-100) H 02/14/25 18:00 Total Protein 6.6 gm/dl (6.0-8.3) 02/14/25 18:00 Albumin 3.1 gm/dl (3.4-5.0) L 02/14/25 18:00 Procalcitonin 1.35 ng/ml (0-0.5) H 02/14/25 18:00 Urine Color Yellow 02/14/25 22:15 Urine Appearance Clear (Clear) 02/14/25 22:15 Urine pH 5.5 (4.5-7.5) 02/14/25 22:15 Ur Specific Connelly 1.035 (1.000-1.030) H 02/14/25 22:15 Urine Protein 1+ (Negative) H 02/14/25 22:15 Urine Glucose (UA) Negative (Negative) 02/14/25 22:15 Urine Ketones Trace (Negative) H 02/14/25 22:15 Urine Blood 3+ (Negative) H 02/14/25 22:15 Urine Nitrite Positive (Negative) A 02/14/25 22:15 Urine Bilirubin Negative (Negative) 02/14/25 22:15 Urine Urobilinogen Negative (Negative) 02/14/25 22:15 Ur Leukocyte Esterase 2+ (Negative) H 02/14/25 22:15 Urine WBC (Auto) >50 /hpf (0-5) H 02/14/25 22:15 Urine RBC (Auto) >20 /hpf (0-2) H 02/14/25 22:15 U Hyaline Cast (Auto) 3-5 /lpf (0-2) H 02/14/25 22:15 U Epithel Cells (Auto) 0-2 /hpf (0-2) 02/14/25 22:15 Urine Bacteria (Auto) 4+ (None Seen) H 02/14/25 22:15 Urine Comment 02/14/25 22:15 Nasal Screen MRSA (PCR) Negative (Negative) 02/14/25 18:20 Adenovirus (PCR) Not Detected (NotDetected) 02/14/25 18:20 B. pertussis DNA (PCR) Not Detected (NotDetected) 02/14/25 18:20 B.parapertussis DNA PCR Not Detected (NotDetected) 02/14/25 18:20 C. pneumoniae DNA (PCR) Not Detected (NotDetected) 02/14/25 18:20 Coronavirus OC43 (PCR) Not Detected (NotDetected) 02/14/25 18:20 Coronavirus HKU1 (PCR) Not Detected (NotDetected) 02/14/25 18:20 Coronavirus 229E (PCR) Not Detected (NotDetected) 02/14/25 18:20 SARS-CoV-2 (PCR) Not Detected (NotDetected) 02/14/25 18:20 Coronavirus NL63 (PCR) Not Detected (NotDetected) 02/14/25 18:20 Human Metapneumovir PCR Not Detected (NotDetected) 02/14/25 18:20 Influenza Type A (PCR) Not Detected (NotDetected) 02/14/25 18:20 Influenza Type B (PCR) Not Detected (NotDetected) 02/14/25 18:20 M. pneumoniae (PCR) Not Detected (NotDetected) 02/14/25 18:20 Parainfluenza 1 (PCR) Not Detected (NotDetected) 02/14/25 18:20 Parainfluenza 2 (PCR) Not Detected (NotDetected) 02/14/25 18:20 Parainfluenza 3 (PCR) Not Detected (NotDetected) 02/14/25 18:20 Parainfluenza 4 (PCR) Not Detected (NotDetected) 02/14/25 18:20 RSV (PCR) Not Detected (NotDetected) 02/14/25 18:20 Entero/Rhino (PCR) Not Detected (NotDetected) 02/14/25 18:20 Blood Type A Positive 02/14/25 18:13 Antibody Screen NEGATIVE 02/14/25 18:13 Impressions Chest X-Ray 02/14/25 17:52 Chest radiograph, one view History: Sepsis Comparison: 02/05/2025 Findings: Single AP view of the chest performed. No focal consolidation or pleural effusion. Coarse mild irregular opacities at the lung bases, similar to prior, favoring atelectasis and/or fibrosis. No pneumothorax. The cardiomediastinal silhouette is within normal limits. Mildly prominent pulmonary vascularity. No evidence for lymphadenopathy. No visualized bony or soft tissue abnormality. Impression: Stable chest radiograph Electronically signed by Sekou Al 02-14-2025 6:24 PM Abdomen/Pelvis CT 02/14/25 18:03 Exam(s): CT ABDOMEN + PELVIS With Contrast IV Amt: 119 ml opti 320 EXAM: CT Abdomen and Pelvis With Intravenous Contrast CLINICAL HISTORY: Reason for exam: septic shock, AHRF, diarrheal illness. TECHNIQUE: Axial computed tomography images of the abdomen and pelvis with intravenous contrast. CTDI is 11.87 mGy and DLP is 344.82 mGy-cm. Automated exposure control was utilized for the study. A dose lowering technique was utilized adhering to the principles of ALARA. CONTRAST: Patient received 119 ml opti 320 of IV contrast COMPARISON: 01/30/2025 FINDINGS: Lung bases: Left lower lobe atelectasis. Heart: Coronary artery calcification. Aortic valve calcifications. ABDOMEN: Liver: Stable intrahepatic biliary ductal dilatation. Slight interval increase in gallbladder distention. Gallbladder and bile ducts: See above. Pancreas: Unremarkable. No mass. No ductal dilation. Spleen: The spleen is stable in appearance when compared with prior exam. Adrenals: Unremarkable. No mass. Kidneys and ureters: Unremarkable. No solid mass. No hydronephrosis. Stomach and bowel: Interval resolution of numerous loops of dilated small bowel. No mucosal thickening. PELVIS: Appendix: No findings to suggest acute appendicitis. Bladder: Distended urinary bladder. Reproductive: Unremarkable as visualized. ABDOMEN and PELVIS: Intraperitoneal space: Unremarkable. No free air. No significant fluid collection. Bones/joints: Stable T12 vertebral body compression fracture. No dislocation. Soft tissues: Unremarkable. Vasculature: Diffuse vascular calcifications of the abdominal aorta and its branch vessels. There are 2 displaced vascular embolization plug seen within a large occluded infrarenal abdominal aortic aneurysm measuring 5.8 x 7.1 cm in AP and transverse dimension. There is occlusion of the common internal and external iliac arteries bilaterally. 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 Lymph nodes: Unremarkable. No enlarged lymph nodes. IMPRESSION: Interval resolution of previously noted small bowel obstruction Stable occlusion of the large infrarenal abdominal aortic aneurysm and both common internal and external iliac arteries. Persistent patency of the right presumed axillary to common femoral artery bypass graft Stable T12 vertebral body compression fracture resulting in 40% vertebral body height loss. Electronically signed by: Jeff Elizondo MD 02/14/25 20:28 PM Chest CTA 02/14/25 18:03 Exam(s): CTA CHEST IV Amt: 119 ml opti 320 EXAM: CT Angiography Chest With Intravenous Contrast CLINICAL HISTORY: Reason for exam: PE. TECHNIQUE: Axial computed tomographic angiography images of the chest with intravenous contrast. CTDI is 11 mGy and DLP is 480 mGy-cm. Automated exposure control was utilized for the study. A dose lowering technique was utilized adhering to the principles of ALARA. MIP reconstructed images were created and reviewed. COMPARISON: No relevant prior studies available. FINDINGS: Pulmonary arteries: Exam limited secondary to patient respiratory motion. No large central pulmonary embolism. Distention of the main pulmonary artery suggesting pulmonary arterial hypertension Aorta: No acute findings. No thoracic aortic aneurysm. Other arteries: Patent proximal right axillary to presumed common femoral artery bypass graft. Lungs: Diffuse changes COPD. No mass. No consolidation. Left lower lobe atelectasis Pleural space: Trace left pleural effusion No pneumothorax. Heart: Cardiomegaly. Coronary artery calcifications. No significant pericardial effusion. No evidence of RV dysfunction. Bones/joints: No acute fracture. No dislocation. Soft tissues: Unremarkable. Lymph nodes: Unremarkable. No enlarged lymph nodes. IMPRESSION: No large central pulmonary embolus Trace left pleural effusion Left lower lobe atelectasis Diffuse changes COPD. Electronically signed by: Jeff Elizondo MD 02/14/25 20:32 PM ECG Additional Comments: ECG. Sinus tachycardia with PVCs at the rate of 126. Nonspecific T wave abnormality. ST elevation lateral leads. QTc 437 Repeat EKG. Sinus tachycardia with occasional PVCs rate of 122. ST no longer elevated lateral leads. QTc 461 Code Status & VTE Plan VTE Prophylaxis Plan VTE Prophylaxis will be ordered: Yes
[2025-02-15] MEDS ORDERED: GLUCOSE 40% GEL 15 GM TUBE PO PRN ×2 (00:42→00:57)
[2025-02-15] MEDS ORDERED: GLUCOSE 10 TAB/TUBE PO PRN ×2 (00:42→00:57)
[2025-02-15] MEDS ORDERED: DEXTROSE 50% 50 ML SYRINGE IV PRN ×2 (00:42→00:57)
[2025-02-15] MEDS ORDERED: CARBOHYDRATES FOR HYPOGLYCEMIA PO PRN ×2 (00:42→00:57)
[2025-02-15] MEDS ORDERED: GLUCAGON FOR INJ 1 MG VIAL SQ PRN ×2 (00:42→00:57)
[2025-02-15] MEDS: VANCOMYCIN HCL 1,000 MG/270 ML BAG IV SCH (01:19)
[2025-02-15] MEDS: INSULIN ASPART PER UNIT CHARGE SC SCH (01:19)
[2025-02-15] MEDS: LACTATED RINGER'S 500 ML IV ONE (03:20)
[2025-02-15 05:09] LABS: Hematocrit (blood only) 31.4 % (37.0-47.0); Hemoglobin 10.2 g/dl (12.0-16.0); Immature Granulocytes # (auto) 0.16 K/uL (0.01-0.20); Immature Granulocytes % (auto) 0.7 %; Mean Corpuscular Hemoglobin 29.7 pg (25.0-34.0); Mean Corpuscular Volume 91.3 fL (80.0-100.0); Platelet Count 442 K/uL (130-400); RDW Standard Deviation 45.8 fL (36.4-46.3); Red Blood Count 3.44 M/uL (4.20-5.40); White Blood Count 22.01 K/ul (4.8-10.8)
[2025-02-15 05:17] LABS: Alanine Aminotransferase 17.0 U/L (7-52); Alkaline Phosphatase 109.0 U/L (34-104); Anion Gap 7.0 (3-11); Bilirubin,Total 0.5 mg/dl (0.2-1.0); Blood Urea Nitrogen 12.0 mg/dl (6-23); Calcium 7.6 mg/dl (8.6-10.3); Carbon Dioxide 23.0 mmol/L (21-32); Chloride 102.0 mmol/L (98-107); Creatinine Clr Calc Pharmacy 46.3 ml/min; Glucose 180.0 mg/dl (70-99(Fasting)); Magnesium 2.9 mg/dl (1.7-2.4); Potassium 3.4 mmol/L (3.5-5.1); Sodium 132.0 mmol/L (136-145); Total Protein 5.8 gm/dl (6.0-8.3)
[2025-02-15] MEDS: POTASSIUM CHLORIDE CRTAB 20 MEQ TABCR PO STA ×2 (05:53→10:11)
[2025-02-15] MEDS: CEFEPIME 2000MG 2,000 MG/20 ML SYR IV SCH (05:53)
[2025-02-15] MEDS: ICU ELECTROLYTE REPLACEMENT PROTOCOL SCH (06:19)
[2025-02-15 07:10] LABS: ANTI-Xa, UFH(UnfractionatedHep 1.34 IU/ml (0.3-0.7)
[2025-02-15 08:18] LABS: CTX-M Resistant Gene Not Detected (NotDetected); Efaecalis Not Reported Not Detected (NotDetected); Efaecium Not Reported Not Detected (NotDetected); IMP Resistant Gene Not Detected (NotDetected); KPC Resistant Gene Not Detected (NotDetected); Lmonocyt Not Reported Not Detected (NotDetected); NDM Resistant Gene Not Detected (NotDetected); OXA 48 Like Resistant Gene Not Detected (NotDetected); Staph lugdunensis Not Reported Not Detected (NotDetected); Staph spp. Not Reported Not Detected (NotDetected); Staphaureus Not Reported Not Detected (NotDetected); Staphepi Not Reported Not Detected (NotDetected); Strep agal(GrpB) Not Reported Not Detected (NotDetected); Strep pneum Not Reported Not Detected (NotDetected); Strep pyog (GrpA) Not Reported Not Detected (NotDetected); Strep spp Not Reported Not Detected (NotDetected); VIM Resistant Gene Not Detected (NotDetected); mcr-1 Colistin Resistant Gene Not Detected (NotDetected)
[2025-02-15 08:19] LABS: A calco-baum cmplx NotReported Not Detected (NotDetected); Bact fragilis Not Reported Not Detected (NotDetected); Blood Culture Id Panel See PCR Comment (NotDetected); C auris Not Reported Not Detected (NotDetected); Calbicans Not Reported Not Detected (NotDetected); Candida glabrata Not Reported Not Detected (NotDetected); Candida krusei Not Reported Not Detected (NotDetected); Cneoformans/gatti Not Reported Not Detected (NotDetected); Cparapsilosis Not Reported Not Detected (NotDetected); Ctropicalis Not Reported Not Detected (NotDetected); E cloacae compx Not Reported Not Detected (NotDetected); Enterobacterales DETECTED (NotDetected); Enterobacterales Not Reported DETECTED (NotDetected); Escherichia coli Not Reported DETECTED (NotDetected); H influenzae Not Reported Not Detected (NotDetected); K aerogenes Not Reported Not Detected (NotDetected); Koxytoca Not Reported Not Detected (NotDetected); Kpneumoniae grp Not Reported Not Detected (NotDetected); N meningitidis Not Reported Not Detected (NotDetected); P aeruginosa Not Reported Not Detected (NotDetected); Proteus spp Not Reported Not Detected (NotDetected); Salmonella spp Not Reported Not Detected (NotDetected); Stenmaltophilia Not Reported Not Detected (NotDetected)
--- NOTE | 2025-02-15 08:37 | Critical Care Progress Note ---
Date of Service February 15, 2025 Assessment & Plan (1) Complicated urinary tract infection: (2) Septic shock: (3) Shock: (4) Elevated WBC count: (5) Acute non-ST elevation myocardial infarction (NSTEMI): (6) Hypokalemia: (7) Acute hyponatremia: Plan Reason Critically Ill: 84 YOF presented with septic shock requiring vasopressor support at admission. Pt received IVF and norepi overnight. This morning, pt was able to wean from pressors and maintain MAPs>65. UA returned as positive, pending culture. Blood culture return positive for gram neg bacilli. At this time, infection source is likely urinary. Neuro - No acute needs CAM ICU: NEGATIVE - chronic low back pain- no change in symptoms- no change in neurological exam and is without any incontinence. - Otherwise neurologically intact Cardiac -HX: CAD, MR, AAA (embolized), HFmrEF. Presented with shock unspecified and elevated elevated troponin. Nonspecific T wave changes noted on initial ECG. Has since resolved. - Troponin have trended down 4679--> 3536--> 2890 - Pt is asymptomatic-denies chest pain/pressure, referred pain, SOB, dizziness, headache or nausea - For her HFmrEF- ECHO 02/03/25- EF 40-45% with lateral wall akinesis and global hypokinesis of LV moderate MR with grade I diastolic dysfunction. Repeat Echo ordered due to elevated trop - Shock with SIRS criteria- Organ dysfunction- Continues with O2 demand- undiagnosed COPD? Leukocytosis uptrending 13.17--> 22.01 supporting distributive shock - Continue mIVF, transition to LR at 100mls/hr - Strict I/O's Respiratory - Hypoxia without respiratory failure, CTA negative for acute PE or opacity/ large effusion - Imaging shows intralobular thickening- likely has undiagnosed COPD - Hypoxia has improved with regulation of blood pressure and HR - Currently using 2-4L O2 via NC, will wean per pt tolerance for O2 sat >87% GI - Hx of Diarrhea - No current c/o diarrhea. Previous stool samples reviewed and without infective organism via cultures obtained - imaging as interpreted by radiologist - reports improvement in her dilation and no evidence of remaining pancolitis -Resume diet per pt tolerance since no longer requiring pressor support - Follow symptoms RENAL/LYTES - multiple electrolyte disturbances, Mg replaced 02/14. - hyponatremia mild at 132 - K at 3.4, replaced with 60mEq po KCl - further replacement- ICU electrolyte protocol - UA positive, pending culture. Pt denies urinary symptoms. Likely complicated UTI - Transition IV cefepime to ceftriaxone for narrower coverage - Continue schmidt - Follow urine culture ENDO - No acute needs - ICU hyperglycemic protocol HEME - Hx of chronic anemia, care home use of Xarelto - Thrombocytosis- 524--> 442 likely secondary to anemia - AM anti Xa returned elevated at 1.34 due to use of Xarelto at home. Heparin infusion to transition to provider driven anticoagulation protocol using APTT levels until anti-Xa level drops below 0.7. - Will monitor with serial anti-Xa levels - transfuse for HGB <8.0, active bleeding, or symptomatic ID - SIRS with organ dysfunction, Blood culture positive for gram negative bacilli, likely urinary source with positive UA - Continue cefepime, DC vancomycin - Following culture data for sensitivities LINES/IV ACCESS - PIV, Schmidt Continue use of these lines - If vasopressors require escalation or multiple- patient may require CVL/H[place]ourt DVT PROPHYLAXIS - SCDS, Heparin infusion DISPO: ICU, consider downgrade to medical floor if pt remains stable without pressor support Admission and Anticipated Discharge Date Admission Date: February 14, 2025 Supervising Physician Co-Signing Physician Notes History present illness: Patient is a 84-year-old female with a history of dyslipidemia, prediabetes, chronic hypoxic respiratory failure, PVD with claudication on Xarelto, carotid artery stenosis, history of iliac aneurysm, hypertension, aortic aneurysm status post embolization in 2021, CAD status post PCI, CHF, T12 compression fracture. The patient presented to the emergency department 02/14/2025 with confusion, fevers and diarrhea. The patient has a recent medical history of hospital admission from 01/30/2025 to 02/05/2025. She was treated with severe sepsis secondary to acute diarrheal illness and pancolitis. The patient was treated with vancomycin, Zosyn and Augmentin during that hospital stay. She also had a rectal bleed that required a unit of PRBCs and iron transfusion. Her home anticoagulation was resumed prior to discharge. Upon arrival to the hospital at this time the patient was awake and alert and able to give a history. Family was at bedside. The patient had fevers at home up to 103 F. She also was having diarrhea at home. Intermittent confusion. She had endorsed some chest pain earlier in the day but denied any active chest pain. She denied dyspnea or abdominal pain. In the emergency department she was tachycardic with hypotension. Slightly hypoxic with a saturation of 87% on 2 L of oxygen. She was given crystalloids with minimal improvement in her blood pressure therefore norepinephrine was started. Lactic was found to be elevated at 3.4 which trended down to 1.4 after crystalloids. Initial troponin was elevated at 1395 and increased up to 4679. EKG was concerning for some ST elevation in the lateral leads repeat EKG showed resolution of this. Cardiology was notified. Procalcitonin was elevated at 1.39. BNP was elevated at 599. She had significant leukocytosis. Urinalysis was significant for trace ketones, 4+ bacteria, positive nitrates, 2+ leukocyte esterase and greater than 50 WBCs. The patient was taken for CT imaging which showed a trace left pleural effusion but no other acute findings within the chest. CT of the abdomen pelvis showed stable occlusion of large infrarenal abdominal aortic aneurysm and both common internal and external iliac arteries, patency of right femoral artery bypass graft. The patient was started on vancomycin and cefepime. Due to the patient's shock state critical care was consulted. Reason Critically Ill: Circulatory shock, likely septic shock UTI/pyelonephritis Gram-negative bacteremia NSTEMI, elevated troponin, peaked at 4000 Mild hyponatremia Acute hypoxic respiratory failure Pulmonary edema Lactic acidosis Neuro: Awake alert this morning. No encephalopathy appreciated today. Cardiac: Circulatory shock, likely septic shock NSTEMI Continue supportive care with vasopressors for goal MAP 65 mmHg Lactic acidosis has normalized indicating improved tissue perfusion Echocardiogram is pending Troponin has peaked, no need to trend further at this time. Patient is on Xarelto at home, Xa level is high, transitioning heparin to PTT protocol Will consider cardiology consultation pending echo results, of note they were notified when the patient arrived and did not recommend intervention at that time. Respiratory: Acute hypoxic respite failure Pulmonary edema Requiring more supplemental oxygen, desaturates easily Chest x-ray today indicative of pulmonary edema, BNP is elevated Echocardiogram is pending Continue oxygen supplementation, we will consider starting Lasix tomorrow if patient remains off of pressors GI: May start clear liquid diet and advance as tolerated. RENAL/LYTES: Lactic acidosis Mild hyponatremia Mild hypokalemia Monitor and replace electrolytes as indicated Lactic acid has improved, no need to trend further at this time Monitor urine output closely Will consider diuresis tomorrow : Urinary tract infection, pyelonephritis Bacteremia likely secondary to pyelonephritis Schmidt catheter, monitor urine output. ENDO: Okay to start diet. Blood sugars acceptable at this time. HEME: CBC acceptable today, no evidence of acute anemia. Continue to monitor with daily labs. ID: Gram-negative bacteremia UTI with pyelonephritis Antibiotics adjusted to Rocephin 2 g daily. Follow final sensitivities for cultures --Prophylaxis VTE: Heparin infusion GI: May start clear liquid diet and advance as tolerated Diet: Diet as above Plan: Patient is critically ill and will remain in the ICU. Source of her shock seem to be septic shock. Likely pyelonephritis leading to bacteremia. Antibiotics have been adjusted. Cultures have yet to finalize, we will follow these. Troponins peaked around 4000. Echocardiogram is still pending and we will follow-up on this. If echocardiogram shows significant decrease in EF we will consider cardiology consultation. Continue heparin drip for now. Patient has some new hypoxia, x-ray looks like pulmonary edema which fits her clinical picture. Continue oxygen supplementation, we will consider the resuscitation tomorrow as long as she remains out of shock. Dr. White was the resident-physician during care of patient. I separately evaluated patient for mobley portions of the history and the exam. I was present during the critical portion of medical decision making, and I discussed the case with the resident. I generally agree with the findings and plan except for any additions/exceptions noted. Subjective Pt was admitted to ICU last night for septic shock and inability to maintain BP without pressor support. This morning, norepi was turned off and pt has been able to maintain MAPs>65. This morning, pt reports she continues low back pain, but denies any other complaints of pain. She denies chest discomfort, fever/chills, palpitations, SOB, cough/congestion, headaches, abdominal pain, suprapubic pain, dysuria, nausea, diarrhea, new onset extremity numbness/tingling. Review of Systems Review of Systems: As per HPI Physical Exam Physical Exam: Gen: NAD HENT: Normocephalic, atraumatic. External ear without deformities. Trachea midline, no thyromegaly Cardio: RRR, no murmurs or clicks. No JVD. Radial pulses are 2+ bilaterally. L pedal pulse is 2+. Resp: CTAB, Equal bilateral chest rise, no increased work of breathing GI: Non distended, soft, non tender, normoactive bowel sounds : Schmidt in place, draining yellow urine MSK: Moving all extremities independently Skin: Dry, of normal skin tone, Neuro: A& O x 3, CN II-VII intact, no focal strength deficits Results & Data Results & Data Vital Signs (Past 12 Hours) Vital Signs Temp Pulse Pulse Resp BP BP Pulse Ox 02/15/25 06:30 112/66 02/15/25 06:09 107 H 23 92 02/15/25 06:06 102 H 25 H 92 02/15/25 05:51 106 H 24 92 02/15/25 05:36 110 H 26 H 92 02/15/25 05:30 97/63 L 02/15/25 05:24 105 H 21 93 02/15/25 05:15 103 H 21 90 02/15/25 05:03 105 H 23 90 02/15/25 05:00 91/57 L 02/15/25 05:00 91/57 L 02/15/25 04:57 102 H 24 93 02/15/25 04:48 106 H 24 91 02/15/25 04:45 103/60 02/15/25 04:45 103/60 02/15/25 04:39 111 H 21 93 02/15/25 04:33 114 H 23 92 02/15/25 04:31 112/72 02/15/25 04:31 112/72 02/15/25 04:24 109 H 21 93 02/15/25 04:21 104 H 23 94 02/15/25 04:00 101 H 23 94 02/15/25 04:00 84/55 L 02/15/25 04:00 84/55 L 02/15/25 03:45 97/60 L 02/15/25 03:45 97/60 L 02/15/25 03:45 104 H 22 93 02/15/25 03:33 99 H 25 H 94 02/15/25 03:32 83/53 L 02/15/25 03:24 104 H 24 93 02/15/25 03:15 106 H 23 93 02/15/25 03:15 94/58 L 02/15/25 03:15 94/58 L 02/15/25 03:15 94/58 L 02/15/25 03:15 94/58 L 02/15/25 03:03 104 H 23 93 02/15/25 03:00 85/51 L 02/15/25 03:00 85/51 L 02/15/25 02:57 104 H 23 93 02/15/25 02:36 108 H 21 94 02/15/25 02:31 95/58 L 02/15/25 02:18 107 H 24 96 02/15/25 02:16 109/57 L 02/15/25 02:12 101 H 25 H 96 02/15/25 02:06 104 H 23 95 02/15/25 02:00 89/53 L 02/15/25 01:57 109 H 24 97 02/15/25 01:51 108 H 24 97 02/15/25 01:45 113/67 02/15/25 01:30 107/52 L 02/15/25 01:21 98 H 22 93 02/15/25 01:15 109 H 23 94 02/15/25 01:15 95/51 L 02/15/25 01:01 89/42 L 02/15/25 01:00 112 H 22 93 02/15/25 00:51 114 H 21 94 02/15/25 00:45 96/51 L 02/15/25 00:39 103 H 22 92 02/15/25 00:30 124/70 02/15/25 00:30 115 H 21 94 02/15/25 00:18 112 H 20 94 02/15/25 00:15 121/73 02/15/25 00:00 104/62 02/15/25 00:00 113 H 02/14/25 23:51 121 H 18 92 02/14/25 23:45 102/62 02/14/25 23:30 115 H 23 94 02/14/25 23:30 115/70 02/14/25 23:15 107/68 02/14/25 23:15 110 H 20 91 02/14/25 23:12 36.7 C 120 H 20 128/66 91 02/14/25 23:03 124 H 21 93 02/14/25 23:00 02/14/25 23:00 132/79 02/14/25 22:24 02/14/25 22:00 108 H 22 92 02/14/25 22:00 91/65 L 02/14/25 22:00 91/65 L 02/14/25 22:00 91/65 L 02/14/25 21:58 110 H 02/14/25 21:45 98/69 L 02/14/25 21:39 114 H 20 92 02/14/25 21:30 102/66 02/14/25 21:30 102/66 02/14/25 21:30 102/66 02/14/25 21:30 113 H 21 93 02/14/25 21:30 37.5 C 02/14/25 21:23 31.9 C L 64 20 117/64 95 02/14/25 21:18 114 H 19 93 02/14/25 21:15 96/68 L 02/14/25 21:15 96/68 L 02/14/25 21:06 115 H 20 93 02/14/25 21:00 95/67 L 02/14/25 21:00 119 H 22 95 02/14/25 21:00 95/67 L 02/14/25 21:00 95/67 L 02/14/25 21:00 95/67 L 02/14/25 20:45 119 H 22 92 02/14/25 20:45 88/59 L 02/14/25 20:30 122 H 21 O2 Del Method O2 Flow Rate 02/15/25 06:30 02/15/25 06:09 2 02/15/25 06:06 2 02/15/25 05:51 2 02/15/25 05:36 2 02/15/25 05:30 02/15/25 05:24 2 02/15/25 05:15 2 02/15/25 05:03 2 02/15/25 05:00 02/15/25 05:00 02/15/25 04:57 2 02/15/25 04:48 2 02/15/25 04:45 02/15/25 04:45 02/15/25 04:39 2 02/15/25 04:33 2 02/15/25 04:31 02/15/25 04:31 02/15/25 04:24 2 02/15/25 04:21 2 02/15/25 04:00 2 02/15/25 04:00 02/15/25 04:00 02/15/25 03:45 02/15/25 03:45 02/15/25 03:45 2 02/15/25 03:33 2 02/15/25 03:32 02/15/25 03:24 2 02/15/25 03:15 2 02/15/25 03:15 02/15/25 03:15 02/15/25 03:15 02/15/25 03:15 02/15/25 03:03 2 02/15/25 03:00 02/15/25 03:00 02/15/25 02:57 2 02/15/25 02:36 2 02/15/25 02:31 02/15/25 02:18 2 02/15/25 02:16 02/15/25 02:12 2 02/15/25 02:06 2 02/15/25 02:00 02/15/25 01:57 2 02/15/25 01:51 2 02/15/25 01:45 02/15/25 01:30 02/15/25 01:21 2 02/15/25 01:15 2 02/15/25 01:15 02/15/25 01:01 02/15/25 01:00 2 02/15/25 00:51 2 02/15/25 00:45 02/15/25 00:39 2 02/15/25 00:30 02/15/25 00:30 2 02/15/25 00:18 2 02/15/25 00:15 02/15/25 00:00 02/15/25 00:00 02/14/25 23:51 2 02/14/25 23:45 02/14/25 23:30 2 02/14/25 23:30 02/14/25 23:15 02/14/25 23:15 2 02/14/25 23:12 Nasal Cannula 2 02/14/25 23:03 2 02/14/25 23:00 Nasal Cannula 2 02/14/25 23:00 02/14/25 22:24 Nasal Cannula 02/14/25 22:00 Nasal Cannula 3 02/14/25 22:00 02/14/25 22:00 02/14/25 22:00 02/14/25 21:58 02/14/25 21:45 02/14/25 21:39 02/14/25 21:30 02/14/25 21:30 02/14/25 21:30 02/14/25 21:30 02/14/25 21:30 02/14/25 21:23 02/14/25 21:18 02/14/25 21:15 02/14/25 21:15 02/14/25 21:06 02/14/25 21:00 02/14/25 21:00 02/14/25 21:00 02/14/25 21:00 02/14/25 21:00 02/14/25 20:45 02/14/25 20:45 02/14/25 20:30 Resident Activity Tracking Resident Involvement: Resident Care Provided Care Provided: Adult Hospital Medicine
[2025-02-15 08:54] LABS: ANTI-Xa, UFH(UnfractionatedHep 1.02 IU/ml (0.3-0.7)
[2025-02-15] MEDS: HEPARIN 25000 UNIT/500 ML D5W 25,000 UNITS/500 ML BAG IV SCH (09:32)
[2025-02-15] MEDS: ADVANCED PROBIOTIC 625 MG CAPSULE PO SCH (10:09)
[2025-02-15] MEDS: LIDOCAINE 5% 1 PATCH TD SCH (10:09)
[2025-02-15] MEDS: MULTIVITAMIN TAB PO SCH (10:10)
[2025-02-15] MEDS: FERROUS SULFATE 325 MG TAB PO SCH (10:10)
[2025-02-15] MEDS: ASPIRIN 81 MG ECTAB PO SCH (10:10)
[2025-02-15] MEDS: LACTATED RINGER'S 1,000 ML IV SCH (10:13)
--- NOTE | 2025-02-15 10:33 | XRay Report ---
XR chest 1V portable CLINICAL HISTORY: hypoxia COMPARISON STUDY: 02/14/2025 FINDINGS: Stable cardiomegaly without pulmonary vascular congestion. There is increased patchy and blanco zy opacity in the lung bases. No pneumothorax. IMPRESSION: Lung base pneumonia with possible trace pleural effusions. ACT 112: Negative or not required by law. Electronically signed by: Hollis Richey M.D. 02/15/2025 10:31 AM
[2025-02-15] MEDS: cefTRIAXone SODIUM 2,000 MG/50 ML BAG IV SCH (11:21)
[2025-02-15] MEDS: CALCIUM GLUCONATE 1,000 MG/60 ML BAG IV STA (13:05)
--- NOTE | 2025-02-15 13:46 | XCELERA ---
[id number] \\[id number]
[2025-02-15] MEDS: NITROGLYCERIN SL 0.4 MG/TAB TAB SL ONE (13:51)
[2025-02-15] MEDS: NITROGLYCERIN 0.3 MG/1 TAB 100 TAB BTL SL ONE (13:59)
[2025-02-15 14:12] LABS: Cdiff Toxin B Gene (2yr or >) Negative Cdiff Gene (Neg)
[2025-02-15 14:16] LABS: Hematocrit (blood only) 30.9 % (37.0-47.0); Hemoglobin 10.0 g/dl (12.0-16.0); Immature Granulocytes # (auto) 0.10 K/uL (0.01-0.20); Immature Granulocytes % (auto) 0.5 %; Mean Corpuscular Hemoglobin 29.7 pg (25.0-34.0); Mean Corpuscular Volume 91.7 fL (80.0-100.0); Platelet Count 472 K/uL (130-400); RDW Standard Deviation 46.5 fL (36.4-46.3); Red Blood Count 3.37 M/uL (4.20-5.40); White Blood Count 20.68 K/ul (4.8-10.8)
[2025-02-15] MEDS: FUROSEMIDE 40 MG/4 ML VIAL IV ONE (14:19)
[2025-02-15 14:27] LABS: Partial Thromboplastin Time 93 Seconds (21-31)
--- NOTE | 2025-02-15 15:53 | Cardiology Consultation ---
Date of Consultation February 15, 2025 Assessment & Plan (1) Acute non-ST elevation myocardial infarction (NSTEMI): (2) Takotsubo cardiomyopathy: (3) CAD (coronary artery disease): Plan 1. Myocardial infarction: Her presentation and enzymes, ECG and echo findings are most compatible with Takatsubo cardiomyopathy not an infarction from vascular occlusion. Emergent or urgent evaluation is not indicated in this setting and with her sepsis. 2. Takatsubo cardiomyopathy: I think this is most likely given the extensive wall motion abnormalities with a early peak and rapid fall off of her troponin. Typically these recover fairly quickly, we might want to wait several days to repeat the echocardiogram but I would hold off on using the usual heart failure medications for now. 3. Coronary disease: She has known coronary artery disease but I think it is unlikely that this is due to vessel occlusion. We may or may not want to do some type of ischemic evaluation in the future since she has known coronary disease but at the moment I would not. History of Present Illness Attending Physician: Godwin Palacios MD History of Present Illness This is an 84-year-old woman with a history of hypertension, hyperlipidemia, severe vascular disease including peripheral vascular disease with multiple surgeries and abdominal aortic aneurysm as well as known coronary artery disease. She had intervention in 2004 and that catheterization January 2023 had a patent stent in place and nonobstructive disease. She is chronically anticoagulated with Xarelto. She was recently hospitalized with sepsis about 2 weeks ago, she was hypoxic and an echocardiogram done February 03, 2025 showed mild concentric left ventricular hypertrophy and a left ventricular ejection fraction 40 to 45% or better. There was lateral wall akinesis but only mild global hypokinesis of the left ventricle. She was discharged on February 05, 2025 however return to the emergency room on February 14, 2025 with septic shock, probably urinary. Her blood pressure was low but it has improved. Evaluation here has included electrocardiograms which show sinus tachycardia, the first electrocardiogram from February 14, 20[address] at [address] elevation in V4 and V5 which could represent injury although by an hour later this ST elevation is not very apparent and subsequent electrocardiograms suggest lateral T wave inversion but not ST elevation. Troponins however were markedly elevated (initially 1395 peaking at 4679 two hours and 46 minutes later and dropping down to 2035 most recently on February 15, 2025 at 1316). This trend is not consistent with vessel occlusion. An echocardiogram done this morning shows extensive anteroapical wall motion abnormalities which on my review this morning is suggestive of Takatsubo cardiomyopathy. She does not have any chest discomfort currently and is laying flat comfortably in bed. She tells me she did have some chest discomfort when she came in but cannot describe it and cannot tell me what it resolved. She is currently not short of breath. Allergies Allergy/AdvReac Type Severity Reaction Status Date / Time diphenhydramine AdvReac Intermediate heart Verified 01/04/25 10:36 racing Home Medications Medication Instructions Recorded Confirmed Type atorvastatin 40 mg tablet (Lipitor) 40 mg PO QPM 03/24/18 02/14/25 History metoprolol tartrate 50 mg tablet 50 mg PO BID 03/24/18 02/14/25 History (Lopressor) multivitamin 1 tab PO QAM 03/24/18 02/14/25 History furosemide 40 mg tablet (Lasix) 40 mg PO BID 08/06/19 02/14/25 History aspirin 81 mg tablet,delayed 81 mg PO QAM #0 tabs 08/07/19 02/14/25 Rx release rivaroxaban 20 mg tablet (Xarelto) 20 mg PO HS #0 tabs 08/07/19 02/14/25 Rx cilostazol 100 mg tablet 100 mg PO BID 03/06/20 02/14/25 History omega 5-rta-ivd-fish oil 300 1 cap PO QAM 02/20/23 02/14/25 History mg-1,000 mg capsule (Fish Oil) isosorbide mononitrate 30 mg 30 mg PO QAM #30 tabs 02/22/23 02/14/25 Rx tablet,extended release 24 hr calcium carbonate (Calcium 600) 600 mg PO DAILY 07/14/23 02/14/25 History nitroglycerin 0.4 mg sublingual 0.4 mg sublingual Q5M PRN Chest 07/12/24 02/14/25 Rx tablet (Nitrostat) Pain #20 tabs potassium chloride 20 mEq 20 meq PO AMHS 01/30/25 02/14/25 History tablet,extended release L.acidop,casei,lactis,rham-B.lact,brandon 10 cap PO DAILY #10 caps 02/05/25 02/14/25 Rx 625 mg (10 billion cell) capsule (Advanced Probiotic) ferrous sulfate 325 mg (65 mg 325 mg PO BID #60 tabs 02/05/25 02/14/25 Rx iron) tablet,delayed release lidocaine 4 % topical patch 1 patch topical DAILY 10 days #10 02/05/25 02/14/25 Rx ea tramadol 50 mg tablet 50 mg PO Q6 PRN Pain, Moderate 02/14/25 02/14/25 History Patient History Medical History Prediabetes Wheelchair dependence History of recent hospitalization 01/2023 [facility] - chest pain On home O2 qHS On anticoagulant therapy Lower GI bleed HISTORY OF FROM HEMORRHOID Peripheral vascular disease Osteoarthritis Hypertension controlled, stable per pt Hyperlipidemia Surgical History S/P insertion of iliac artery stent History of cardiac cath 02/22/23 - [facility] - CP - no stents. History of esophagogastroduodenoscopy (EGD) History of incision and drainage left inner thigh 02/08/2020: LMA#4 atraumatic x 1. No issues per anesthesia postop progress note. 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-DOES NOT WEAR PROSTHESIS History of appendectomy History of bilateral tubal ligation H/O breast surgery X 2-BENIGN LUMPECTOMY Previous back surgery BONE SPUR REMOVED Family History Son Family history of diabetes mellitus Other No family history of adverse response to anesthesia Social History Smoking Status: Former smoker Tobacco Type: Cigarettes Smoking End Date: 20 years ago; Second Hand Exposure: No; Do You Dip or Chew Tobacco: No; Hx Alcohol Use: Yes Alcohol type: beer Hx Substance Use: No Preferred Language: Sinhala Communication Ability: Effective Coil Taper Required: No Beliefs That Will Affect Care: None marital status: Current Living Situation: Spouse Current Living Situation Comment: SPOUSE Other Information That Helps Us Care for You: No Feels Safe at Home: Yes Safety Concerns: Feels Safe At This Time Assistive Devices: None, Lift Chair, Walker and Wheelchair Physical Exam Physical Exam: Constitutional: Alert, cooperative and in no distress. HEENT: Unremarkable Neck: No jugular venous distention, carotid pulses are normal and equal bilaterally without bruits. Pulmonary: Clear to auscultation bilaterally. Cardiac: Regular somewhat rapid rhythm with no murmur, gallop or rub. Abdomen: Soft, nontender with normal bowel sounds. Extremities: No edema. Neurologic: No focal findings. Skin: No rash, ecchymoses or petechiae. Results & Data Vital Signs (Past 12 Hours) Vital Signs Temp Pulse Resp BP Pulse Ox O2 Del Method O2 Flow Rate 02/15/25 15:26 108 H 02/15/25 15:12 Nasal Cannula 5 02/15/25 15:07 36.6 C 02/15/25 15:00 109/70 02/15/25 15:00 109/70 02/15/25 14:57 108 H 25 H 93 Nasal Cannula 5 02/15/25 14:45 112 H 23 93 02/15/25 14:36 113 H 24 92 02/15/25 14:30 126/76 02/15/25 14:21 112 H 32 H 91 02/15/25 14:15 109 H 30 H 93 02/15/25 14:03 115 H 29 H 94 02/15/25 14:00 121/68 02/15/25 13:51 111 H 29 H 89 L 02/15/25 13:30 120 H 45 H 90 Nasal Cannula 1 02/15/25 13:30 133/89 02/15/25 13:30 133/89 02/15/25 13:03 106 H 27 H 93 02/15/25 13:00 101/64 02/15/25 13:00 101/64 02/15/25 12:57 110 H 26 H 96 02/15/25 12:30 109 H 27 H 94 02/15/25 12:30 111/70 02/15/25 12:30 111/70 02/15/25 12:30 111/70 02/15/25 12:15 108 H 26 H 89 L 02/15/25 12:00 36.6 C 02/15/25 12:00 113/71 02/15/25 12:00 113/71 02/15/25 11:36 109 H 18 94 02/15/25 11:30 134/67 02/15/25 11:30 134/67 02/15/25 11:30 134/67 02/15/25 11:24 118 H 22 92 02/15/25 11:15 118 H 30 H 95 02/15/25 11:00 118/66 02/15/25 11:00 118/66 02/15/25 10:39 118 H 26 H 96 02/15/25 10:36 115 H 23 95 Nasal Cannula 5 02/15/25 10:31 135/90 02/15/25 10:12 111 H 25 H 96 02/15/25 10:03 107 H 29 H 90 02/15/25 10:00 101/64 02/15/25 10:00 101/64 02/15/25 09:57 94 H 24 94 02/15/25 09:51 92 H 24 93 02/15/25 09:27 102 H 22 90 Nasal Cannula 5 02/15/25 09:06 102 H 24 89 L 02/15/25 09:00 98/59 L 02/15/25 08:57 101 H 22 89 L 02/15/25 08:54 102 H 22 90 02/15/25 08:33 102 H 21 91 02/15/25 08:30 94/58 L 02/15/25 08:30 94/58 L 02/15/25 08:00 37 C 02/15/25 08:00 106/61 02/15/25 07:54 109 H 31 H 94 02/15/25 07:45 111 H 20 93 02/15/25 07:30 114 H 02/15/25 07:30 102/60 02/15/25 07:30 102/60 02/15/25 07:24 111 H 24 90 02/15/25 07:15 108 H 16 88 L 02/15/25 06:51 113 H 26 H 80 L 02/15/25 06:30 112/66 02/15/25 06:09 107 H 23 92 2 02/15/25 06:06 102 H 25 H 92 2 02/15/25 05:51 106 H 24 92 2 02/15/25 05:36 110 H 26 H 92 2 02/15/25 05:30 97/63 L 02/15/25 05:24 105 H 21 93 2 02/15/25 05:15 103 H 21 90 2 02/15/25 05:03 105 H 23 90 2 02/15/25 05:00 91/57 L 02/15/25 05:00 91/57 L 02/15/25 04:57 102 H 24 93 2 02/15/25 04:48 106 H 24 91 2 02/15/25 04:45 103/60 02/15/25 04:45 103/60 02/15/25 04:39 111 H 21 93 2 02/15/25 04:33 114 H 23 92 2 02/15/25 04:31 112/72 02/15/25 04:31 112/72 02/15/25 04:24 109 H 21 93 2 02/15/25 04:21 104 H 23 94 2 02/15/25 04:00 101 H 23 94 2 02/15/25 04:00 84/55 L 02/15/25 04:00 84/55 L Laboratory Results Cardiac Enzymes 02/14/25 02/14/25 02/14/25 Range/Units 18:00 20:46 23:28 AST 26 (13-39) U/L Troponin I High Sens 1395.6 H* 4679.6 H* D 3536.3 H* D (0-14) pg/ml B-Natriuretic Peptide 599 H (0-100) pg/ml 02/15/25 02/15/25 Range/Units 04:32 13:16 AST 41 H (13-39) U/L Troponin I High Sens 2890.7 H* 2035.3 H* D (0-14) pg/ml B-Natriuretic Peptide (0-100) pg/ml Coagulation 02/14/25 02/15/25 Range/Units 18:00 13:16 PT 14.2 H (9.0-12.0) Seconds APTT 34 H 93 H* (21-31) Seconds B-Natriuretic Peptide 599 H (0-100) pg/ml CBC 02/14/25 02/15/25 02/15/25 Range/Units 18:00 04:32 13:51 WBC 13.17 H 22.01 H D 20.68 H (4.8-10.8) K/ul RBC 3.69 L 3.44 L 3.37 L (4.20-5.40) M/uL Hgb 10.7 L 10.2 L 10.0 L (12.0-16.0) g/dl Hct 33.1 L 31.4 L 30.9 L (37.0-47.0) % Plt Count 524 H 442 H 472 H (130-400) K/uL Neut # (Auto) 12.58 H 19.01 H 18.25 H (1.40-6.50) K/uL Lymph # (Auto) 0.18 L 0.50 L 0.65 L (1.20-3.40) K/uL Camp # (Auto) 0.31 2.00 H 1.63 H (0.11-0.59) K/uL Eos # (Auto) 0.00 0.29 0.01 (0.00-0.50) K/uL Baso # (Auto) 0.03 0.05 0.04 (0.00-0.20) K/uL Comprehensive Metabolic Panel 02/14/25 02/15/25 Range/Units 18:00 04:32 Sodium 132 L 132 L (136-145) mmol/L Potassium 3.4 L 3.4 L (3.5-5.1) mmol/L Chloride 97 L 102 (98-107) mmol/L Carbon Dioxide 20 L 23 (21-32) mmol/L BUN 15 12 (6-23) mg/dl Creatinine 0.79 0.75 (0.6-1.2) mg/dl Glucose 160 H 180 H (70-99(Fasting)) mg/dl Calcium 8.4 L 7.6 L (8.6-10.3) mg/dl Direct Bilirubin 0.2 0.1 (0-0.2) mg/dl AST 26 41 H (13-39) U/L ALT 16 17 (7-52) U/L Alkaline Phosphatase 120 H 109 H (34-104) U/L Total Protein 6.6 5.8 L (6.0-8.3) gm/dl Albumin 3.1 L 2.7 L (3.4-5.0) gm/dl Intake and Output 02/15/25 02/15/25 02/15/25 06:59 14:59 22:59 Intake Total 1727.334 / 3850.883 1742.516 / 2142.516 400 / 2142.516 Output Total 860 / 860 240 / 690 450 / 690 Balance 867.334 / 2990.883 1502.516 / 1452.516 -50 / 1452.516 Intake: IV 1727.334 / 3850.883 1742.516 / 1742.516 Calcium Gluconate 1,000 mg In 60 / 60 60 ml @ 240 mls/hr IV NOW STA Rx#:[id number] Heparin 44056 Unit/500 ml D5w 224.516 / 224.516 25,000 units In 500 ml @ 950 UNITS/HR 19 mls/hr IV .Q24H [facility] Rx#:[id number] Lactated Ringer's 1,000 ml @ 80 500 / 500 308 / 308 mls/hr IV .[id number] [facility] Rx#: [id number] Magnesium Sulfate / D5w 1 gm In 380 / 478.333 100 / 100 100 ml @ 50 mls/hr IV Q2H [facility] Rx#:[id number] Norepinephrine/D5w 4 mg In 250 77.334 / 94.167 0 / 0 ml @ 0 MCG/KG/MIN IV .Q0M [facility] Rx#:[id number] Plasma-Lyte A 500 ml @ 999 mls/ 500 / 500 hr IV .Q31M [facility] Rx#:[id number] Sodium Chloride 0.9% 1,000 ml @ 1000 / 1000 100 mls/hr IV .Q10H [facility] Rx#: [id number] Vancomycin HCl 1,000 mg In 270 270 / 270 ml @ 200 mls/hr IV Q24H [facility] Rx# :[id number] cefTRIAXone SODIUM 2,000 mg In 50 / 50 50 ml @ 100 mls/hr IV Q24H [facility] Rx#:[id number] Oral 400 / 400 Output: Urine Amount (Catheter) 860 / 860 240 / 690 450 / 690 Corbett/Indwelling 860 / 860 240 / 690 450 / 690 Other: Weight 55 kg Weight Measurement Method Built in [facility] PG Care Time/CCT Total # of Minutes Spent Total Time Spent with Patient: Total time spent is greater than 50% in coordination of care (as documented) at patient's floor/unit and/or counseling patient: Coding Level of Care Code 56839 INT INP/OBS CARE 3/75MIN Diagnoses Acute non-ST elevation myocardial infarction (NSTEMI) I21.4 Takotsubo cardiomyopathy I51.81 CAD (coronary artery disease) I25.10
--- NOTE | 2025-02-15 16:56 | Hospitalist Progress Note ---
Date of Service February 15, 2025 Assessment & Plan (1) Septic shock: Plan: 84-year-old female with past medical history significant for dyslipidemia, prediabetes, history of acute on chronic respiratory failure with hypoxia, peripheral vascular disease with claudication, carotid stenosis, iliac aneurysm, hypertension, abdominal aortic aneurysm, CAD s/p stent comes from home because of some confusion, fevers and diarrhea and found to be in severe sepsis and se ptic shock. Patient was recently in the hospital was admitted on 01/30/2025 and was discharged on 02/05/2025. During that admission she had severe sepsis secondary to acute diarrheal illness and nonspecific proctitis. During that admission cultures were negative. Initially was treated with Vanco and Zosyn and later was on Augmentin. During that admission she also had rectal bleeding and required 1 unit of PRBCs and also given IV Venofer for iron level less than 10. Xarelto was held but was restarted prior to discharge. She also required IV diuresis for acute CHF and she also found to have acute T12 compression fracture and was seen by orthospine and conservative management recommended. She lives at home with her . and son in the room. Patient is wheelchair-bound. She can transfer to the wheelchair. Today patient had temperature 103 degrees Fahrenheit. Had episodes of diarrhea. And confusion. Currently patient is alert and awake and oriented x 3. Was able to give her history. Earlier had chest pain but currently denies any chest pain. Denies shortness of breath. No headache. No neck pain. No runny nose or sore throat or cough. No nausea. No abdominal pain. Has chronic back pain. Micturating okay. In the ER she was tachycardic. Blood pressure was soft. She was hypoxic , 87% on room air and requiring 2 L oxygen. Even after fluid bolus her blood pressure did not improve and was started on Levophed drip by the ER. Initial lactic acid was 3.4. Repeat lactic acid 1.4. Initial troponin was 1395 and repeat was 4679 and next repeat is 3536. Initial EKG showed some ST elevation in lateral leads but repeat EKG no acute ST elevation seen. ER talked with the cardiology but no intervention planned at this time. UA came back positive. CT A chest no acute findings. Trace left pleural effusion. CT abdomen pelvis stable occlusion of large infrarenal abdominal aortic aneurysm and both common internal/external iliac arteries. And patency of right presumed axillary to common femoral artery bypass graft. Stable T12 vertebral compression fracture. Seems comfortable at this time. Septic shock Presented with fever, diarrhea and some confusion Currently mental status okay CT chest and CT abdomen pelvis okay Respiratory BioFire negative UA is positive, possible cause of her sepsis Will follow stool studies Received IV Vanco and cefepime in the ER which will be continued Received fluids and currently on Levophed drip Close monitor in the ICU Will follow the cultures Appreciate critical care help. 02/15 off pressors since 5 am blood culture: gram negative bacilli urine culture: pending transitioned to Ceftriaxone IV continue to monitor closely NonST elevated KS Initial EKG showed ST elevations in lateral leads but repeat EKG no acute ST elevations Initially had chest pain but that got resolved Troponin elevated at 1395 and repeat 4679 and next level was 3536 Could be ACS versus demand ischemia from septic shock ER talked with interventional cardiology and no intervention planned at this time Held home Xarelto and started on IV heparin N.p.o. Close monitor Follow echo 02/15 [employer] consulted troponin trending down possible Takatsubo cardiomyopathy monitor closely Melena Hg stable at 10 heparin drip held Protonix IV BID monitor closely Hyponatremia Sodium 132 Will monitor labs History of CAD status post stent Status post stenting of the circumflex obtuse marginal artery in 2004 Nonobstructive CAD on cardiac catheterization January 2023 Continue aspirin and statin Holding Imdur and metoprolol for septic shock History of peripheral vascular disease Status post left AKA in 2015 Bilateral iliac artery stenting in October 2016 Right axillary to femoral and femoral posterior tibial bypass in June 2019 Continue aspirin and statin Follow-up with vascular surgery Infrarenal abdominal aortic aneurysm Status post prior embolization in June 2021 CAT scan today shows 5.8X 7.1 cm aneurysm Mild fusiform dilatation of ascending thoracic aorta 4 cm Needs close follow-up with vascular surgery History of iron deficiency anemia Received one unit prbc and IV Venofer last admission On iron pills Hemoglobin 10.7- stable Diarrhea Follow stool studies Hypoxia Advanced emphysema per imaging studies in the past Continue oxygen support Nebs as needed T12 compression fracture Pain control Nocturnal hypoxia Uses 2 L at bedtime History of alcohol use Will monitor DVT prophylaxis On IV heparin Disposition ICU CODE STATUS Full code Admission and Anticipated Discharge Date Admission Date: February 14, 2025 Subjective seen resting in bed, comfortable, not in distress on 5 L NC states she feels ok, a little better than yesterday denies chest pain, shortness of breath, dizziness, palpitations no abdominal pain, nausea no other new symptoms noted to have black stools earlier per RN, heparin drip held Review of Systems Review of Systems: all noted and negative except for above Physical Exam Physical Exam: General- oriented x 3, not in distress, speaks in sentences with no effort or accessory muscle use weak Eyes- anicteric Neck- no JVD Lungs- clear breath sounds bilaterally, no rales/wheezes Heart- normal rate, regular rhythm; no murmurs Abdomen- normal bowel sounds, nondistended, soft, nontender Extremities- no pretibial edema, no calf tenderness Neuro- alert, oriented x 3; no gross focal neurologic deficits Skin- warm & dry Results & Data Results & Data Vital Signs (Past 12 Hours) Vital Signs Temp Pulse Resp BP Pulse Ox O2 Del Method O2 Flow Rate 02/15/25 15:26 108 H 02/15/25 15:12 Nasal Cannula 5 02/15/25 15:07 36.6 C 02/15/25 15:00 109/70 02/15/25 15:00 109/70 02/15/25 14:57 108 H 25 H 93 Nasal Cannula 5 02/15/25 14:45 112 H 23 93 02/15/25 14:36 113 H 24 92 02/15/25 14:30 126/76 02/15/25 14:21 112 H 32 H 91 02/15/25 14:15 109 H 30 H 93 02/15/25 14:03 115 H 29 H 94 02/15/25 14:00 121/68 02/15/25 13:51 111 H 29 H 89 L 02/15/25 13:30 120 H 45 H 90 Nasal Cannula 1 02/15/25 13:30 133/89 02/15/25 13:30 133/89 02/15/25 13:03 106 H 27 H 93 02/15/25 13:00 101/64 02/15/25 13:00 101/64 02/15/25 12:57 110 H 26 H 96 02/15/25 12:30 109 H 27 H 94 02/15/25 12:30 111/70 02/15/25 12:30 111/70 02/15/25 12:30 111/70 02/15/25 12:15 108 H 26 H 89 L 02/15/25 12:00 36.6 C 02/15/25 12:00 113/71 02/15/25 12:00 113/71 02/15/25 11:36 109 H 18 94 02/15/25 11:30 134/67 02/15/25 11:30 134/67 02/15/25 11:30 134/67 02/15/25 11:24 118 H 22 92 02/15/25 11:15 118 H 30 H 95 02/15/25 11:00 118/66 02/15/25 11:00 118/66 02/15/25 10:39 118 H 26 H 96 02/15/25 10:36 115 H 23 95 Nasal Cannula 5 02/15/25 10:31 135/90 02/15/25 10:12 111 H 25 H 96 02/15/25 10:03 107 H 29 H 90 02/15/25 10:00 101/64 02/15/25 10:00 101/64 02/15/25 09:57 94 H 24 94 02/15/25 09:51 92 H 24 93 02/15/25 09:27 102 H 22 90 Nasal Cannula 5 02/15/25 09:06 102 H 24 89 L 02/15/25 09:00 98/59 L 02/15/25 08:57 101 H 22 89 L 02/15/25 08:54 102 H 22 90 02/15/25 08:33 102 H 21 91 02/15/25 08:30 94/58 L 02/15/25 08:30 94/58 L 02/15/25 08:00 37 C 02/15/25 08:00 106/61 02/15/25 07:54 109 H 31 H 94 02/15/25 07:45 111 H 20 93 02/15/25 07:30 114 H 02/15/25 07:30 102/60 02/15/25 07:30 102/60 02/15/25 07:24 111 H 24 90 02/15/25 07:15 108 H 16 88 L 02/15/25 06:51 113 H 26 H 80 L 02/15/25 06:30 112/66 02/15/25 06:09 107 H 23 92 2 02/15/25 06:06 102 H 25 H 92 2 02/15/25 05:51 106 H 24 92 2 02/15/25 05:36 110 H 26 H 92 2 02/15/25 05:30 97/63 L 02/15/25 05:24 105 H 21 93 2 02/15/25 05:15 103 H 21 90 2 02/15/25 05:03 105 H 23 90 2 02/15/25 05:00 91/57 L 02/15/25 05:00 91/57 L 02/15/25 04:57 102 H 24 93 2 all noted and reviewed including below
[2025-02-15 19:46] LABS: Hematocrit (blood only) 30.3 % (37.0-47.0); Hemoglobin 9.8 g/dl (12.0-16.0); Mean Corpuscular Hemoglobin 29.4 pg (25.0-34.0); Mean Corpuscular Volume 91.0 fL (80.0-100.0); Platelet Count 410 K/uL (130-400); RDW Standard Deviation 45.9 fL (36.4-46.3); Red Blood Count 3.33 M/uL (4.20-5.40); White Blood Count 15.35 K/ul (4.8-10.8)
--- NOTE | 2025-02-15 19:52 | Communication Note ---
Date of Service: February 15, 2025 HGB overall stable. Will restart heparin infusion. Continue to monitor for clinical signs of bleeding. Addendum 0545: Notified by RN patient converted spontaneously to atrial flutter, proven by 12-lead EKG. Past EKGs reviewed - this is a new finding. Blood pressure is stable. She is asymptomatic at this time. HR 130-160s persistently. Considered chemical cardioversion vs. rate control. Will start with rate control, metoprolol tartrate 5mg IV x1. As above, she is anticoagulated currently. Last aPTT therapeutic. Coding Level of Care Code None
[2025-02-15] MEDS ORDERED: Nursing to Pharmacy Communication SCH (20:00)
[2025-02-15] MEDS: ATORVASTATIN 40 MG TAB PO SCH (20:05)
[2025-02-15] MEDS: PANTOprazole 40 MG/10 ML SYR IV SCH (20:05)
[2025-02-16 02:43] LABS: Hematocrit (blood only) 28.6 % (37.0-47.0); Hemoglobin 9.2 g/dl (12.0-16.0); Immature Granulocytes # (auto) 0.09 K/uL (0.01-0.20); Immature Granulocytes % (auto) 0.6 %; Mean Corpuscular Hemoglobin 29.0 pg (25.0-34.0); Mean Corpuscular Volume 90.2 fL (80.0-100.0); Platelet Count 400 K/uL (130-400); RDW Standard Deviation 46.2 fL (36.4-46.3); Red Blood Count 3.17 M/uL (4.20-5.40); White Blood Count 14.17 K/ul (4.8-10.8)
[2025-02-16 03:17] LABS: Alanine Aminotransferase 17.0 U/L (7-52); Alkaline Phosphatase 108.0 U/L (34-104); Anion Gap 4.0 (3-11); Bilirubin,Total 0.4 mg/dl (0.2-1.0); Blood Urea Nitrogen 13.0 mg/dl (6-23); Calcium 7.7 mg/dl (8.6-10.3); Carbon Dioxide 22.0 mmol/L (21-32); Chloride 105.0 mmol/L (98-107); Creatinine Clr Calc Pharmacy 53.4 ml/min; Glucose 100.0 mg/dl (70-99(Fasting)); Magnesium 2.6 mg/dl (1.7-2.4); Potassium 4.2 mmol/L (3.5-5.1); Sodium 131.0 mmol/L (136-145); Total Protein 5.7 gm/dl (6.0-8.3)
[2025-02-16 03:28] LABS: Partial Thromboplastin Time 78 Seconds (21-31)
[2025-02-16] MEDS: POT PHOSPHATE MONOBASIC W/ SOD TAB PO SCH (05:29)
[2025-02-16] MEDS: METOPROLOL TARTRATE 1 MG/ML VIAL IV STA (05:54)
[2025-02-16] MEDS ORDERED: SODIUM PHOSPHATE 3 MMOL/1 ML 5 ML VIAL IV ONE (07:11)
--- NOTE | 2025-02-16 07:17 | Critical Care Progress Note ---
Date of Service February 16, 2025 Assessment & Plan (1) Complicated urinary tract infection: (2) Septic shock: (3) Shock: (4) Elevated WBC count: (5) Acute non-ST elevation myocardial infarction (NSTEMI): (6) Hypokalemia: (7) Acute hyponatremia: Plan Reason Critically Ill: 84 YOF presented with septic shock requiring vasopressor support at admission on 02/13. Pt has not required pressors to maintain MAPs since 02/14 at 0600. Pt did have episode of a-flutter with RVR that resolved with one dose of IV metoprolol. Pt's echo shows reduction in cardiac function with reduced EF from most recent echo 2 weeks ago. This morning, pt has returned to sinus rhythm with PVCs, but has had increased SOB with low O2 sats using oxymask at 9L. Neuro - No acute needs CAM ICU: NEGATIVE - chronic low back pain- tramadol 50mg po q6h - Otherwise neurologically intact Cardiac -HX: CAD, MR, AAA (embolized), HFmrEF. New onset a-flutter with RVR with return to sinus rhythm with PVCs after 5mg IV metoprolol. New echo findings of reduced EF to 25-30%, as well as thinning of myocardium and severe wall motion abnormalities. Pt with difficulty maintaining O2 sats with supplemental O2 via NC or oxymask. CXR shows increase in pulmonary congestion as compared to CXR at admission. Suspect hypervolemia in setting of reduced cardiac function reflexed in recent echo. - ordered albumin 25% to be given prior to IV lasix 40mg - Holding mIVF - Strict I/O's - Cardiology consulted, appreciated recommendations. Takotsubo cardiomyopathy- repeat echo in several days, hold heart failure meds at this time Potential ischemic evaluation in the future in setting of known CAD Respiratory - Hypoxia without respiratory failure, CT chest findings suggestive of undiagnosed COPD. Increased SOB overnight and this morning as well as increased oxygen demand and continued low O2 sats. Repeat CXR this morning shows progression of pulmonary congestion likely due to hypervolemia. - start CPAP to increase O2 sats, reduce pulmonary congestion. Consider BiPAP if O2 sats not improved by CPAP. - Diuresis as above GI - Hx of Diarrhea - No current c/o diarrhea- pt reporting as loose stool without abdominal cramping. Stool is negative for c-diff. Positive occult blood with mild decrease in hbg/hct- fairly stable. Will continue to monitor. - NPO while using CPAP - Follow symptoms RENAL/LYTES - Presented with multiple electrolyte disturbances. - hyponatremia downtrending at 131, likely due to hypervolemia - K is 4.2, Mg is 2.6- stable - Phos is 2.0, replaced with 15 mmol IV sodium phos - further replacement- ICU electrolyte protocol - UA positive, culture negative with less than 1000 colonies. 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 Will continue to monitor - Anti Xa returned elevated at >1.50 and APTT at 139- holding heparin drip x 30min, then restart at 750units/hr per protocol - Repeat coags at 1600 - transfuse for HGB <8.0, active bleeding, or symptomatic ID - SIRS with organ dysfunction at admission, Blood culture positive for gram negative bacilli. - Continue IV ceftriaxone 2g q24h LINES/IV ACCESS - Aric SHORE Continue use of these lines DVT PROPHYLAXIS - SCDS, holding Heparin infusion- plan to resume pending coags DISPO: ICU pending respiratory status Admission and Anticipated Discharge Date Admission Date: February 14, 2025 Supervising Physician Co-Signing Physician Notes History present illness: Patient is a 84-year-old female with a history of dyslipidemia, prediabetes, chronic hypoxic respiratory failure, PVD with claudication on Xarelto, carotid artery stenosis, history of iliac aneurysm, hypertension, aortic aneurysm status post embolization in 2021, CAD status post PCI, CHF, T12 compression fracture. The patient presented to the emergency department 02/14/2025 with confusion, fevers and diarrhea. The patient has a recent medical history of hospital admission from 01/30/2025 to 02/05/2025. She was treated with severe sepsis secondary to acute diarrheal illness and pancolitis. The patient was treated with vancomycin, Zosyn and Augmentin during that hospital stay. She also had a rectal bleed that required a unit of PRBCs and iron transfusion. Her home anticoagulation was resumed prior to discharge. Upon arrival to the hospital at this time the patient was awake and alert and able to give a history. Family was at bedside. The patient had fevers at home up to 103 F. She also was having diarrhea at home. Intermittent confusion. She had endorsed some chest pain earlier in the day but denied any active chest pain. She denied dyspnea or abdominal pain. In the emergency department she was tachycardic with hypotension. Slightly hypoxic with a saturation of 87% on 2 L of oxygen. She was given crystalloids with minimal improvement in her blood pressure therefore norepinephrine was started. Lactic was found to be elevated at 3.4 which trended down to 1.4 after crystalloids. Initial troponin was elevated at 1395 and increased up to 4679. EKG was concerning for some ST elevation in the lateral leads repeat EKG showed resolution of this. Cardiology was notified. Procalcitonin was elevated at 1.39. BNP was elevated at 599. She had significant leukocytosis. Urinalysis was significant for trace ketones, 4+ bacteria, positive nitrates, 2+ leukocyte esterase and greater than 50 WBCs. The patient was taken for CT imaging which showed a trace left pleural effusion but no other acute findings within the chest. CT of the abdomen pelvis showed stable occlusion of large infrarenal abdominal aortic aneurysm and both common internal and external iliac arteries, patency of right femoral artery bypass graft. The patient was started on vancomycin and cefepime. Due to the patient's shock state critical care was consulted. Reason Critically Ill: Circulatory shock, septic shock UTI/pyelonephritis E. coli bacteremia Stress cardiomyopathy/Takotsubo cardiomyopathy NSTEMI, elevated troponin, peaked at 4000 Mild hyponatremia Acute hypoxic respiratory failure Pulmonary edema Lactic acidosis Neuro: Awake alert this morning. No encephalopathy appreciated today. Cardiac: Circulatory shock NSTEMI Atrial fibrillation with RVR, resolved Stress-induced cardiomyopathy, Takotsubo cardiomyopathy Patient has been weaned off of pressors, has been off of them for the past 24 hours Lactic acidosis has normalized indicating improved tissue perfusion Echo showing EF 25 to 30% with extensive severe wall motion abnormalities, thinning of the myocardium suggest prior infarct, normal RV size and function, evidence of left atrial pressure overload, mild to moderate tricuspid regurgitation, moderate mitral regurgitation. Troponin has peaked, no need to trend further at this time. Cardiology was consulted, echocardiogram is suggestive of stress-induced cardiomyopathy in setting of sepsis. They plan to repeat echocardiogram today. Patient is on Xarelto at home, Xa level is high, transitioning heparin to PTT protocol, was supratherapeutic this morning so heparin is on hold. Respiratory: Acute hypoxic respite failure Pulmonary edema Requiring more supplemental oxygen, desaturates easily. Patient is wearing CPAP on and off now with improvement in her tachypnea and oxygen saturation. Chest x-ray today indicative of pulmonary edema, BNP is elevated Echo showing stress-induced cardiomyopathy with EF of 25 to 30% We have diuresed her again this morning. Will consider a second dose later today. Ordered repeat procalcitonin and sputum culture today to ensure that we are not dealing with a bacterial pneumonia. However imaging appears to be pulmonary edema with some pleural effusions developing. GI: Melanotic stools - May start clear liquid diet and advance as tolerated. - Patient did have an episode of black stool yesterday. She says that this is normal for her however. Was positive for occult however she takes iron. - No abdominal pain, BRBPR or hematemesis. RENAL/LYTES: Lactic acidosis (resolved) Mild hyponatremia Hypophosphatemia Monitor and replace electrolytes as indicated Lactic acid has improved, no need to trend further at this time Monitor urine output closely Giving Lasix today. Was given sodium phosphate. : Urinary tract infection, pyelonephritis Bacteremia likely secondary to pyelonephritis Schmidt catheter, monitor urine output. ENDO: Blood sugars acceptable. Clear liquid diet. May advance as tolerated. HEME: Supratherapeutic Xa/PTT after heparin infusion. Hemoglobin 10-9.5. Will repeat CBC this evening. ID: Gram-negative bacteremia with E. coli UTI with pyelonephritis Antibiotics adjusted to Rocephin 2 g daily. Will likely need a 2-week course total, no need to repeat cultures. --Prophylaxis VTE: Heparin infusion (on hold due to supratherapeutic Xa and PTT) GI: PPI IV twice daily Diet: Continue clear liquid diet and advance as tolerated Plan: Patient remains critically ill. Echocardiogram is showing stress-induced cardiomyopathy, cardiology is planning to repeat echocardiogram today. Imaging of the chest was reviewed by myself. Still showing pulmonary edema. There is also development of possible pleural effusions with blunting of the costophrenic angle. Remains hypoxic, allowing us to use CPAP today. We will continue to diurese her. Will consider second dose of Lasix later today. She also had an episode of atrial fibrillation overnight and we can give IV metoprolol for this as she tolerated this well and converted. Patient had melanotic stools, she takes iron and says this is normal for her. Her Xa and PTT were both elevated however on the heparin drip therefore it is on hold. We will recheck a CBC this evening and also be repeating coags to determine if heparin drip will be continued or not. Dr. White was the resident-physician during care of patient. I separately evaluated patient for mobley portions of the history and the exam. I was present during the critical portion of medical decision making, and I discussed the case with the resident. I generally agree with the findings and plan except for any additions/exceptions noted. I have personally spent 55 minutes of critical care time in the direct management of this patient. This is a life/limb threatening event. This includes time spent evaluating patient, direct bedside care, chart review, placing orders, interpretation of diagnostic studies, discussion with consultants, patient, and family members, as well as other required patient management activities. This time is exclusive of all separately billable procedures, and teaching time and separate from and in addition to any other critical care service time. Please note the above document was generated using voice recognition software. It may contain grammatical, syntax or spelling errors. Subjective Overnight, pt went into a-flutter with RVR. She was given a dose of metoprolol and rate reduced. Pt continues with elevated HR, but has returned to sinus rhythm with PVC's, which has been her baseline. This morning, pt reports she is feeling more short of breath. The oxygen mask is causing her mouth to feel dry and her nose to run and she has been drinking a lot of water. She is having bilateral lower back pain, which is improved with laying on her sides. Pt denies fever/chills, chest pain, abdominal cramping, nausea, vomiting, constipation, productive cough, headache, and numbness and tingling Pt endorses blurry vision (improved with wearing her glasses) and loose stools (denies watery diarrhea) Review of Systems Review of Systems: As per HPI Physical Exam Physical Exam: Gen: NAD HENT: Normocephalic, atraumatic. External ear without deformities. Trachea midline, no thyromegaly Cardio: RRR, no murmurs or clicks. No JVD. Radial pulses are 2+ bilaterally. L pedal pulse is 2+. Resp: Pt wearing oxymask at 9L, noted increased work of breathing with rib retractions. Decreased breath sounds at LLL vs RLL GI: Non distended, soft, non tender, normoactive bowel sounds : Schmidt in place, draining pale yellow urine MSK: Moving all extremities independently Skin: Dry, of normal skin tone, no rahses Neuro: A& O x 3, CN II-VII intact, no focal strength deficits Results & Data Results & Data Vital Signs (Past 12 Hours) Vital Signs Temp Pulse Resp BP Pulse Ox O2 Del Method O2 Flow Rate 02/16/25 06:15 116 H 21 92 02/16/25 06:09 113 H 104/67 02/16/25 06:00 99 H 23 104/67 93 Oxymask 9 02/16/25 05:54 155 H 130/95 02/16/25 05:45 155 H 24 130/95 92 Nasal Cannula 5 02/16/25 05:00 113 H 109/60 94 Nasal Cannula 5 02/16/25 04:00 96 H 19 109/65 92 Nasal Cannula 5 02/16/25 03:00 110 H 21 105/68 94 Nasal Cannula 5 02/16/25 02:00 115 H 23 108/68 95 Nasal Cannula 5 02/16/25 01:00 98 H 23 100/56 L 94 Nasal Cannula 5 02/16/25 00:00 36.5 C 109 H 20 111/58 L 96 Nasal Cannula 5 02/15/25 23:17 107 H 02/15/25 23:00 109 H 21 101/64 95 Nasal Cannula 5 02/15/25 22:30 113 H 21 95/63 L 94 Nasal Cannula 5 02/15/25 21:17 119 H 24 94 Nasal Cannula 5 02/15/25 20:22 Nasal Cannula 5 02/15/25 20:17 114 H 02/15/25 20:00 115 H 25 H 119/72 95 Nasal Cannula 5 Resident Activity Tracking Resident Involvement: Resident Care Provided Care Provided: Adult Hospital Medicine
[2025-02-16] MEDS: ALBUMIN 25% 25 GM/100 ML VIAL IV ONE (07:52)
[2025-02-16] MEDS: SODIUM PHOSPHATE 15 MMOL in SODIUM CHLORIDE 0.9% 250 ML IV ONE (07:52)
--- NOTE | 2025-02-16 08:23 | XRay Report ---
EXAM: XR chest 1V portable CLINICAL HISTORY: Hypoxemia, arrhythmia, crackles. TECHNIQUE: An X-ray image of the chest was obtained in the AP portable projection. COMPARISON: Prior X-ray 02/14/2025 and 02/05/2025. FINDINGS: Pulmonary Parenchyma: Overlying chest leads. Technically rotated. Interval increase of bilateral, predominantly lower zone, opacities and prominent bronchovascular markings and reticulations, suggest pulmonary congestion; however, the possibility of an infectious process cannot be ruled out. Interval blunting of the costophrenic angles may suggest bilateral effusion with atelectasis. Heart and Mediastinum: Unchanged cardiomegaly. No mediastinal widening or masses. No hilar or mediastinal lymphadenopathy. Atherosclerotic calcification in the aortic arch. Bony Thorax: Degenerative changes. Bony thorax appears intact without fractures or deformities. IMPRESSION: 1. Interval increase of bilateral, predominantly lower zone, opacities and prominent bronchovascular markings and reticulations, suggest pulmonary congestion; however, the possibility of an infectious process cannot be ruled out. 2. Interval blunting of the costophrenic angles may suggest bilateral effusion with atelectasis. Electronically signed by Paulo Mccabe 02-16-2025 08:22 AM
--- NOTE | 2025-02-16 09:01 | Cardiology Progress Note ---
Date of Service February 16, 2025 Assessment & Plan (1) Acute non-ST elevation myocardial infarction (NSTEMI): (2) Takotsubo cardiomyopathy: (3) CAD (coronary artery disease): (4) CHF (congestive heart failure): (5) Tachycardia: Plan 1. Myocardial infarction: Her presentation and enzymes, ECG and echo findings are most compatible with Takatsubo cardiomyopathy not an infarction from vascular occlusion. Emergent or urgent evaluation is not indicated in this setting and with her sepsis. 2. Takatsubo cardiomyopathy: I think this is most likely given the extensive wall motion abnormalities with a early peak and rapid fall off of her troponin. Typically these recover fairly quickly, we usually want to wait several days to repeat the echocardiogram however with her hypoxia and tachycardia I am going to repeat that today. I would hold off on using the usual heart failure medications for now, beta-blockade could be used but her tachycardia may be appropriate when in sinus. 3. Coronary disease: She has known coronary artery disease but I think it is unlikely that this is due to vessel occlusion. We may or may not want to do some type of ischemic evaluation in the future since she has known coronary disease but at the moment I would not. 4. CHF: Her oxygen requirement has increased, her chest x-ray shows a pattern which I find more compatible with noncardiogenic pulmonary edema not CHF from elevated pressures. I will check her echo, diuresis in the setting may be helpful if we can lower her left ventricular end-diastolic pressure but we need to be careful that we do not decrease her cardiac output and cause hypotension and kidney hypoperfusion. So far that has not happened. 5. Tachycardia: I am not sure why she is tachycardic, possibly the stress of the situation, it is not an abnormal rhythm at the moment and she had only brief episode of atrial fibrillation. I would not worry too much about the arrhythmia although we can use beta-blockers if we want to lower the heart rate somewhat but that may adversely affect the blood pressure as well. Admission and Anticipated Discharge Date Admission Date: February 14, 2025 Subjective Events during the night noted, episode of atrial fibrillation, now back in sinus tachycardia. She does describe feeling quite short of breath during the night, now she is on an oxygen mask and still describing some shortness of breath. Physical Exam Physical Exam: Constitutional: Alert, cooperative and in no distress. HEENT: Unremarkable Neck: No jugular venous distention, carotid pulses are normal and equal bilaterally without bruits. Pulmonary: Slight crackles on auscultation bilaterally. Cardiac: Regular somewhat rapid rhythm with no murmur, gallop or rub. Abdomen: Soft, nontender with normal bowel sounds. Extremities: No edema. Neurologic: No focal findings. Skin: No rash, ecchymoses or petechiae. Results & Data Vital Signs (Past 12 Hours) Vital Signs Temp Pulse Resp BP Pulse Ox O2 Del Method O2 Flow Rate 02/16/25 08:18 120 H 22 134/92 95 02/16/25 07:45 113 H 21 94 02/16/25 07:00 114 H 24 130/79 93 02/16/25 06:15 116 H 21 92 02/16/25 06:09 113 H 104/67 02/16/25 06:00 99 H 23 104/67 93 Oxymask 9 02/16/25 05:54 155 H 130/95 02/16/25 05:45 155 H 24 130/95 92 Nasal Cannula 5 02/16/25 05:00 113 H 109/60 94 Nasal Cannula 5 02/16/25 04:00 96 H 19 109/65 92 Nasal Cannula 5 02/16/25 03:00 110 H 21 105/68 94 Nasal Cannula 5 02/16/25 02:00 115 H 23 108/68 95 Nasal Cannula 5 02/16/25 01:00 98 H 23 100/56 L 94 Nasal Cannula 5 02/16/25 00:00 36.5 C 109 H 20 111/58 L 96 Nasal Cannula 5 02/15/25 23:17 107 H 02/15/25 23:00 109 H 21 101/64 95 Nasal Cannula 5 02/15/25 22:30 113 H 21 95/63 L 94 Nasal Cannula 5 02/15/25 21:17 119 H 24 94 Nasal Cannula 5 FiO2 02/16/25 08:18 02/16/25 07:45 50 02/16/25 07:00 02/16/25 06:15 02/16/25 06:09 02/16/25 06:00 02/16/25 05:54 02/16/25 05:45 02/16/25 05:00 02/16/25 04:00 02/16/25 03:00 02/16/25 02:00 02/16/25 01:00 02/16/25 00:00 02/15/25 23:17 02/15/25 23:00 02/15/25 22:30 02/15/25 21:17 Laboratory Results Cardiac Enzymes 02/15/25 02/16/25 Range/Units 13:16 02:23 AST 36 (13-39) U/L Troponin I High Sens 2035.3 H* D (0-14) pg/ml Coagulation 02/15/25 02/16/25 Range/Units 13:16 02:23 APTT 93 H* 78 H (21-31) Seconds CBC 02/15/25 02/15/25 02/16/25 Range/Units 13:51 19:13 02:23 WBC 20.68 H 15.35 H 14.17 H (4.8-10.8) K/ul RBC 3.37 L 3.33 L 3.17 L (4.20-5.40) M/uL Hgb 10.0 L 9.8 L 9.2 L (12.0-16.0) g/dl Hct 30.9 L 30.3 L 28.6 L (37.0-47.0) % Plt Count 472 H 410 H 400 (130-400) K/uL Neut # (Auto) 18.25 H 12.31 H (1.40-6.50) K/uL Lymph # (Auto) 0.65 L 0.49 L (1.20-3.40) K/uL [place] # (Auto) 1.63 H 1.22 H (0.11-0.59) K/uL Eos # (Auto) 0.01 0.03 (0.00-0.50) K/uL Baso # (Auto) 0.04 0.03 (0.00-0.20) K/uL Comprehensive Metabolic Panel 02/16/25 Range/Units 02:23 Sodium 131 L (136-145) mmol/L Potassium 4.2 D (3.5-5.1) mmol/L Chloride 105 (98-107) mmol/L Carbon Dioxide 22 (21-32) mmol/L BUN 13 (6-23) mg/dl Creatinine 0.66 (0.6-1.2) mg/dl Glucose 100 H (70-99(Fasting)) mg/dl Calcium 7.7 L (8.6-10.3) mg/dl Direct Bilirubin 0.1 (0-0.2) mg/dl AST 36 (13-39) U/L ALT 17 (7-52) U/L Alkaline Phosphatase 108 H (34-104) U/L Total Protein 5.7 L (6.0-8.3) gm/dl Albumin 2.4 L (3.4-5.0) gm/dl Intake and Output 02/15/25 02/16/25 02/16/25 22:59 06:59 14:59 Intake Total 400 / 2287.233 144.717 / 2287.233 Output Total 1005 / 1420 175 / 1420 75 / 75 Balance -605 / 867.233 -30.283 / 867.233 -75 / -75 Intake: IV 0 / 1887.233 144.717 / 1887.233 Heparin 14829 Unit/500 ml D5w 0 / 230.850 144.717 / 230.850 25,000 units In 500 ml @ 950 UNITS/HR 19 mls/hr IV .Q24H [facility] Rx#:[id number] Oral 400 / 400 Output: Urine Amount (Catheter) 1005 / 1420 175 / 1420 75 / 75 [place]/Indwelling 1005 / 1420 175 / 1420 75 / 75 Other: Weight 54.1 kg Weight Measurement Method Built in [facility] Diagnostic Findings Telemetry: Predominantly sinus tachycardia, in atrial fibrillation for about 20 minutes this morning with an increase in heart rate. PG Care Time/CCT Total # of Minutes Spent Total Time Spent with Patient: Total time spent is greater than 50% in coordination of care (as documented) at patient's floor/unit and/or counseling patient: Coding Level of Care Code 33846 SUB INP/OBS CARE 3/50MIN Diagnoses Acute non-ST elevation myocardial infarction (NSTEMI) I21.4 Takotsubo cardiomyopathy I51.81 CAD (coronary artery disease) I25.10 CHF (congestive heart failure) I50.9 Tachycardia R00.0
[2025-02-16 09:32] LABS: ANTI-Xa, UFH(UnfractionatedHep > 1.50 IU/ml (0.3-0.7)
[2025-02-16 09:49] LABS: Partial Thromboplastin Time > 139 Seconds (21-31)
[2025-02-16] MEDS: FUROSEMIDE 40 MG/4 ML VIAL IV ONE ×2 (09:56→20:08)
--- NOTE | 2025-02-16 11:21 | Billing Data ---
Date of Service February 16, 2025 Coding Level of Care Code 25630 CRITICAL CARE
[2025-02-16] MEDS: METOPROLOL TARTRATE 25 MG TAB PO SCH (13:14)
--- NOTE | 2025-02-16 15:18 | Electrocardiogram Report ---
Test Reason : Blood Pressure : */* mmHG Vent. Rate : 108 BPM Atrial Rate : 108 BPM P-R Int : 176 ms QRS Dur : 70 ms QT Int : 298 ms P-R-T Axes : 64 8 -70 degrees QTcB Int : 399 ms Sinus tachycardia with Fusion complexes Low voltage QRS Nonspecific T wave abnormality Abnormal ECG When compared with ECG of 14-Feb-2025 20:41, (unconfirmed) Fusion complexes are now Present Nonspecific T wave abnormality now evident in Inferior leads Confirmed by Cristian Modi ([id number] on 02/16/2025 3:17:57 PM Referred By: REFERRED SELF Confirmed By: Cristian Modi
--- NOTE | 2025-02-16 15:22 | Electrocardiogram Report ---
Test Reason : Blood Pressure : */* mmHG Vent. Rate : 134 BPM Atrial Rate : 308 BPM P-R Int : * ms QRS Dur : 78 ms QT Int : 290 ms P-R-T Axes : * 60 244 degrees QTcB Int : 433 ms Atrial flutter with variable A-V block with premature ventricular or aberrantly conducted complexes T wave abnormality, consider lateral ischemia Abnormal ECG When compared with ECG of 15-Feb-2025 05:58, (unconfirmed) Atrial flutter has replaced Sinus rhythm Inverted T waves have replaced nonspecific T wave abnormality in Lateral leads Confirmed by Cristian Modi ([id number] on 02/16/2025 3:22:10 PM Referred By: REFERRED SELF Confirmed By: Cristian Modi
--- NOTE | 2025-02-16 15:34 | XCELERA ---
[id number]
[2025-02-16 15:51] LABS: Hematocrit (blood only) 28.0 % (37.0-47.0); Hemoglobin 9.0 g/dl (12.0-16.0); Mean Corpuscular Hemoglobin 29.5 pg (25.0-34.0); Mean Corpuscular Volume 91.8 fL (80.0-100.0); Platelet Count 389 K/uL (130-400); RDW Standard Deviation 47.2 fL (36.4-46.3); Red Blood Count 3.05 M/uL (4.20-5.40); White Blood Count 10.95 K/ul (4.8-10.8)
[2025-02-16 16:18] LABS: ANTI-Xa, UFH(UnfractionatedHep 0.14 IU/ml (0.3-0.7)
[2025-02-16 16:22] LABS: Partial Thromboplastin Time 36 Seconds (21-31)
[2025-02-16] MEDS: RIVAROXABAN 20 MG TAB PO SCH (20:06)
[2025-02-16 22:23] LABS: Partial Thromboplastin Time 44 Seconds (21-31)
[2025-02-17 04:59] LABS: Hematocrit (blood only) 31.0 % (37.0-47.0); Hemoglobin 9.7 g/dl (12.0-16.0); Immature Granulocytes # (auto) 0.06 K/uL (0.01-0.20); Immature Granulocytes % (auto) 0.6 %; Mean Corpuscular Hemoglobin 28.9 pg (25.0-34.0); Mean Corpuscular Volume 92.3 fL (80.0-100.0); Platelet Count 401 K/uL (130-400); RDW Standard Deviation 47.3 fL (36.4-46.3); Red Blood Count 3.36 M/uL (4.20-5.40); White Blood Count 9.26 K/ul (4.8-10.8)
[2025-02-17 05:13] LABS: Alanine Aminotransferase 19.0 U/L (7-52); Alkaline Phosphatase 114.0 U/L (34-104); Anion Gap 11.0 (3-11); Bilirubin,Total 0.4 mg/dl (0.2-1.0); Blood Urea Nitrogen 13.0 mg/dl (6-23); Calcium 8.0 mg/dl (8.6-10.3); Carbon Dioxide 22.0 mmol/L (21-32); Chloride 102.0 mmol/L (98-107); Creatinine Clr Calc Pharmacy 52.6 ml/min; Glucose 112.0 mg/dl (70-99(Fasting)); Magnesium 2.1 mg/dl (1.7-2.4); Potassium 3.9 mmol/L (3.5-5.1); Sodium 135.0 mmol/L (136-145); Total Protein 6.5 gm/dl (6.0-8.3)
[2025-02-17] MEDS: POTASSIUM CHLORIDE CRTAB 20 MEQ TABCR PO SCH (06:03)
--- NOTE | 2025-02-17 07:14 | Electrocardiogram Report ---
Test Reason : Blood Pressure : */* mmHG Vent. Rate : 115 BPM Atrial Rate : 115 BPM P-R Int : 156 ms QRS Dur : 70 ms QT Int : 332 ms P-R-T Axes : 74 -2 34 degrees QTcB Int : 459 ms Sinus tachycardia with frequent Premature ventricular complexes Nonspecific T wave abnormality Abnormal ECG When compared with ECG of 14-Feb-2025 19:28, (unconfirmed) No significant change was found Confirmed by Cristian Modi ([id number] on 02/17/2025 7:14:06 AM Referred By: REFERRED SELF Confirmed By: Cristian Modi
--- NOTE | 2025-02-17 07:20 | Electrocardiogram Report ---
Test Reason : Blood Pressure : */* mmHG Vent. Rate : 122 BPM Atrial Rate : 122 BPM P-R Int : 160 ms QRS Dur : 68 ms QT Int : 324 ms P-R-T Axes : 84 26 74 degrees QTcB Int : 461 ms Sinus tachycardia with occasional Premature ventricular complexes Low voltage QRS Borderline ECG When compared with ECG of 14-Feb-2025 18:32, (unconfirmed) Premature supraventricular complexes are no longer Present Confirmed by Cristian Modi ([id number] on 02/17/2025 7:20:15 AM Referred By: REFERRED SELF Confirmed By: Cristian Modi
--- NOTE | 2025-02-17 07:22 | Electrocardiogram Report ---
Test Reason : Blood Pressure : */* mmHG Vent. Rate : 126 BPM Atrial Rate : 126 BPM P-R Int : 162 ms QRS Dur : 70 ms QT Int : 302 ms P-R-T Axes : 78 36 59 degrees QTcB Int : 437 ms Sinus tachycardia with Premature supraventricular complexes and with occasional Premature ventricular complexes Nonspecific T wave abnormality Abnormal ECG When compared with ECG of 31-Jan-2025 05:11, No significant change Confirmed by Cristian Modi ([id number] on 02/17/2025 7:22:22 AM Referred By: REFERRED SELF Confirmed By: Cristian Modi
--- NOTE | 2025-02-17 08:00 | Critical Care Progress Note ---
Date of Service February 17, 2025 Assessment & Plan (1) Takotsubo cardiomyopathy: (2) CHF (congestive heart failure): (3) Acute non-ST elevation myocardial infarction (NSTEMI): (4) Acute hypoxic respiratory failure: (5) Complicated urinary tract infection: (6) Septic shock: (7) Bacteremia: (8) Pulmonary edema: Plan History present illness: Patient is a 84-year-old female with a history of dyslipidemia, prediabetes, chronic hypoxic respiratory failure, PVD with claudication on Xarelto, carotid artery stenosis, history of iliac aneurysm, hypertension, aortic aneurysm status post embolization in 2021, CAD status post PCI, CHF, T12 compression fracture. The patient presented to the emergency department 02/14/2025 with confusion, fevers and diarrhea. The patient has a recent medical history of hospital admission from 01/30/2025 to 02/05/2025. She was treated with severe sepsis secondary to acute diarrheal illness and pancolitis. The patient was treated with vancomycin, Zosyn and Augmentin during that hospital stay. She also had a rectal bleed that required a unit of PRBCs and iron transfusion. Her home anticoagulation was resumed prior to discharge. Upon arrival to the hospital at this time the patient was awake and alert and able to give a history. Family was at bedside. The patient had fevers at home up to 103 F. She also was having diarrhea at home. Intermittent confusion. She had endorsed some chest pain earlier in the day but denied any active chest pain. She denied dyspnea or abdominal pain. In the emergency department she was tachycardic with hypotension. Slightly hypoxic with a saturation of 87% on 2 L of oxygen. She was given crystalloids with minimal improvement in her blood pressure therefore norepinephrine was started. Lactic was found to be elevated at 3.4 which trended down to 1.4 after crystalloids. Initial troponin was elevated at 1395 and increased up to 4679. EKG was concerning for some ST elevation in the lateral leads repeat EKG showed resolution of this. Cardiology was notified. Procalcitonin was elevated at 1.39. BNP was elevated at 599. She had significant leukocytosis. Urinalysis was significant for trace ketones, 4+ bacteria, positive nitrates, 2+ leukocyte esterase and greater than 50 WBCs. The patient was taken for CT imaging which showed a trace left pleural effusion but no other acute findings within the chest. CT of the abdomen pelvis showed stable occlusion of large infrarenal abdominal aortic aneurysm and both common internal and external iliac arteries, patency of right femoral artery bypass graft. The patient was started on vancomycin and cefepime. Due to the patient's shock state critical care was consulted. Reason Critically Ill: Circulatory shock, septic shock UTI/pyelonephritis E. coli bacteremia Stress cardiomyopathy/Takotsubo cardiomyopathy NSTEMI, elevated troponin, peaked at 4000 Mild hyponatremia Acute hypoxic respiratory failure Pulmonary edema Lactic acidosis Neuro: Awake alert this morning. No encephalopathy appreciated today. Cardiac: Circulatory shock (resolved) NSTEMI Atrial fibrillation with RVR, resolved Stress-induced cardiomyopathy, Takotsubo cardiomyopathy Patient has been weaned off of pressors, has been off of them for approximatel y 48 hours. Lactic acidosis has normalized indicating improved tissue perfusion Echo showing EF 25 to 30% with extensive severe wall motion abnormalities, thinning of the myocardium suggest prior infarct, normal RV size and function, evidence of left atrial pressure overload, mild to moderate tricuspid regurgitation, moderate mitral regurgitation. Repeat echocardiogram shows improving ejection fraction. Troponin has peaked, no need to trend further at this time. Cardiology was consulted, echocardiogram is suggestive of stress-induced cardiomyopathy in setting of sepsis. Patient is on Xarelto at home. Was on heparin drip. Transition back to Xarelto on 02/16/2025. Adding back metoprolol for rate control. Increase to 25 mg twice daily today. Diuresing. Respiratory: Acute hypoxic respite failure Pulmonary edema and pleural effusions. Requiring more supplemental oxygen, desaturates easily. Patient is wearing CPAP on and off now with improvement in her tachypnea and oxygen saturation. Chest x-ray today indicative of pulmonary edema, BNP is elevated Echo showing stress-induced cardiomyopathy with EF of 25 to 30% Not having any phlegm production, fevers or chills. Needs more diuresis, we have increased her Lasix to 40 mg twice daily IV. GI: Melanotic stools - May start clear liquid diet and advance as tolerated. - Patient did have an episode of black stool yesterday. She says that this is normal for her however. Was positive for occult however she takes iron. - No abdominal pain, BRBPR or hematemesis. RENAL/LYTES: Lactic acidosis (resolved) Mild hyponatremia Hypophosphatemia Monitor and replace electrolytes as indicated Lactic acid has improved, no need to trend further at this time Monitor urine output closely Lasix 40 mg IV twice daily. : Urinary tract infection, pyelonephritis Bacteremia likely secondary to pyelonephritis Corbett catheter, monitor urine output. ENDO: Blood sugars acceptable. Clear liquid diet. May advance as tolerated. HEME: Hemoglobin is stable. ID: Gram-negative bacteremia with E. coli UTI with pyelonephritis Antibiotics adjusted to Rocephin 2 g daily. Will likely need a 2-week course total, no need to repeat cultures. --Prophylaxis VTE: Xarelto GI: PPI IV twice daily Diet: Continue clear liquid diet and advance as tolerated Plan: Patient is improving but still remains critically ill. Oxygen saturation deteriorates rapidly at times and she requires CPAP and high flow. Hypoxia is likely secondary to pulmonary edema and pleural effusions that have developed after volume resuscitation and stress-induced cardiomyopathy with low EF. At this point we need to continue diurese. She should use CPAP intermittently throughout the day. She can advance her diet as tolerated. Hopefully if her oxygenation is improved she could leave the ICU tomorrow. I have personally spent 35 minutes of critical care time in the direct management of this patient. This is a life/limb threatening event. This includes time spent evaluating patient, direct bedside care, chart review, placing orders, interpretation of diagnostic studies, discussion with consultants, patient, and family members, as well as other required patient management activities. This time is exclusive of all separately billable procedures, and teaching time and separate from and in addition to any other critical care service time. Please note the above document was generated using voice recognition software. It may contain grammatical, syntax or spelling errors. Admission and Anticipated Discharge Date Admission Date: February 14, 2025 Subjective Past 24-hour events: Patient started producing significant of urine yesterday. Repeat echocardiogram showed improving EF. I had a discussion with patient while her was at bedside. I discussed with them goals of care and CODE STATUS. They are both in agreement that she would want to be DNR and DNI. Had episodes of atrial fibrillation overnight. She was started back on metoprolol (did reduce dose yesterday) due to frequent PVCs. Wore CPAP intermittently overnight. Was taken off of heparin infusion and placed back on her home Xarelto. Rounding: Patient overall is doing well this morning. She states that she is feeling much better and having less shortness of breath. She is still requiring significant oxygen requirements. X-ray still showing pleural effusions and pulmonary edema. Urine output has improved, net negative almost 1 L. She is wanting to eat today we will give her a diet and she can advance this as tolerated. Did have an episode of some nausea and vomiting this morning. We have added Zofran. Still having intermittent A-fib/flutter and frequent PVCs. We are increasing her beta-sang today as her blood pressure has tolerated the metoprolol we added back yesterday. Intake: 824 mL Output: 1765 mL Net: -940 mL Feeding: Clear liquid diet, advance as tolerated. IV infusions: None Indwelling catheters: Corbett Laboratory: CBC: WBC 9.26, hemoglobin 9.7, platelet 401 Chemistry: Sodium 135, potassium 3.9, chloride 102, BUN 22, bun 13, creatinine 0.67, glucose 100. Other: Procalcitonin has decreased to 16.6. Imaging: Chest x-ray with Pleural effusions and pulmonary edema. Review of Systems Review of Systems: A 12 point review of systems was obtained in detail. Negative except as noted in HPI. Physical Exam Physical Exam: Physical examination: General: Elderly female, appears comfortable, resting in bed and not in distress. HEENT: Normocephalic, atraumatic. Extraocular movements intact. Sclera are nonicteric. No JVD appreciated. Skin: Warm and dry. No rashes appreciated. No jaundice appreciated. Cardiovascular: Irregular, frequent PVCs/PACs, no murmurs appreciated on my exam. Lungs: Clear bilaterally, no wheezing appreciated. No crackles. Nontachypneic. Resting comfortably on room air. Abdomen: Nondistended, nontender to palpation. No masses appreciated. Musculoskeletal: Normal muscle mass and tone. Left AKA. No effusions appreciated. Neurologic: Awake and alert, oriented. CN II through XII are grossly intact. Speech is fluent. Nonfocal exam. Psychiatric: Appropriate cooperative during my exam. Results & Data Results & Data Vital Signs (Past 12 Hours) Vital Signs Temp Pulse Resp BP Pulse Ox O2 Flow Rate 02/17/25 06:01 125/86 02/17/25 06:01 125/86 02/17/25 06:00 99 H 18 90 02/17/25 05:45 115 H 17 02/17/25 05:30 111 H 18 02/17/25 05:15 105 H 17 93 02/17/25 05:09 107 H 20 90 02/17/25 05:00 121/79 02/17/25 05:00 121/79 02/17/25 04:27 112 H 17 92 02/17/25 04:09 122 H 18 90 02/17/25 04:00 130/97 02/17/25 04:00 130/97 02/17/25 03:54 109 H 14 90 02/17/25 03:33 111 H 17 90 02/17/25 03:00 112/64 02/17/25 03:00 112/64 02/17/25 03:00 100 H 21 90 02/17/25 02:51 94 H 13 90 02/17/25 02:05 97 H 18 95 15 02/17/25 02:03 106 H 20 94 02/17/25 02:00 94/47 L 02/17/25 01:39 105 H 20 90 02/17/25 01:36 114 H 14 92 02/17/25 01:03 97 H 14 90 02/17/25 01:03 91/61 L 02/17/25 01:03 91/61 L 02/17/25 00:54 117 H 15 92 02/17/25 00:30 110 H 14 91 02/17/25 00:06 36.6 C 02/17/25 00:00 112/65 02/17/25 00:00 114 H 20 90 02/17/25 00:00 95 H 02/16/25 23:03 113 H 24 92 15 02/16/25 23:00 112/70 02/16/25 23:00 104 H 16 90 02/16/25 22:33 115 H 19 90 02/16/25 22:00 108 H 23 92 02/16/25 22:00 116/72 02/16/25 22:00 116/72 02/16/25 21:30 115 H 19 91 02/16/25 21:00 96/44 L 02/16/25 20:54 113 H 23 91 02/16/25 20:33 130 H 22 93 02/16/25 20:22 37.3 C 02/16/25 20:01 121/75 02/16/25 20:00 126 H 18 90 Coding Level of Care Code 92746 CRITICAL CARE 1ST 30-74M Diagnoses Takotsubo cardiomyopathy I51.81 CHF (congestive heart failure) I50.9 Acute non-ST elevation myocardial infarction (NSTEMI) I21.4 Acute hypoxic respiratory failure J96.01 Complicated urinary tract infection N39.0 Septic shock A41.9; R65.21 Bacteremia R78.81 Pulmonary edema J81.1
--- NOTE | 2025-02-17 08:11 | XRay Report ---
SINGLE VIEW CHEST CLINICAL HISTORY: Hypoxia. FINDINGS: An AP, portable, upright chest radiograph is compared to study dated 02/16/2025 and correlat ed with chest CT dated 02/14/2025. The heart is enlarged noting atherosclerotic calcification of the t horacic ureter. There is pulmonary vascular congestion. Advanced emphysema and chronic interstitial t hickening is similar to previous. There is apparent increasing airspace consolidation in the right lo wer lung. There are layering pleural effusions with dependent consolidation. No pneumothorax is seen. The skeletal structures are osteopenic. The bony thorax is grossly intact. IMPRESSION: 1. Cardiomegaly and emphysema with evidence of congestive failure. 2. Layering pleural effusions with dependent consolidation. 3. There is apparent increasing consolidation in the right lower lung, some which may be related to o verlying soft tissue density. Correlate clinically for evidence of a superimposed pneumonia/aspiratio n pneumonitis. Radiographic follow-up to resolution is recommended. ACT 112: Negative or not required by law. Electronically signed by: Conor White M.D. 02/17/2025 8:09 AM
[2025-02-17] MEDS: METOPROLOL TARTRATE 25 MG TAB PO ONE (09:28)
[2025-02-17] MEDS: FUROSEMIDE 40 MG/4 ML VIAL IV SCH (09:28)
[2025-02-17] MEDS ORDERED: ONDANSETRON INJ 2 MG/ML 2 ML VIAL IV PRN (10:09)
--- NOTE | 2025-02-17 11:47 | Cardiology Progress Note ---
Date of Service February 17, 2025 Assessment & Plan (1) Takotsubo cardiomyopathy: Plan: -Left ventricular systolic function has improved for short timeframe. -Continue metoprolol tartrate. (2) CAD (coronary artery disease): Plan: -OM RAVEN in 2004. -Patent stents and nonobstructive disease, January 2023 -Continue medical management. (3) CHF (congestive heart failure): Plan: -Has improved on intravenous furosemide. (4) Tachycardia: Plan: -Brief episode of atrial fibrillation likely related to her acute illness. -Continue to monitor. Admission and Anticipated Discharge Date Admission Date: February 14, 2025 Subjective The patient is resting comfortably in bed without complaints of chest pain, dyspnea, or palpitations. Physical Exam Physical Exam: In general this is a well-developed well-nourished white female in no acute distress. HEENT exam is negative. Neck is supple with full carotid upstrokes. There are no carotid bruits. No JVD. There is no thyromegaly. Cardiovascular e xam reveals a regular rhythm with a normal S1 and S2. No S3, S4, or murmurs are noted. Lungs are clear without rales, rhonchi, or wheezes. Abdomen is soft and nontender without bruits. Extremities reveal intact radial artery pulses bilaterally. A left AKA is noted. There is no peripheral edema. Results & Data Vital Signs (Past 12 Hours) Vital Signs Temp Pulse Resp BP Pulse Ox O2 Del Method O2 Flow Rate 02/17/25 08:15 High Flow Nasal Cannula 8 02/17/25 06:01 125/86 02/17/25 06:01 125/86 02/17/25 06:00 99 H 18 90 02/17/25 05:45 115 H 17 02/17/25 05:30 111 H 18 02/17/25 05:15 105 H 17 93 02/17/25 05:09 107 H 20 90 02/17/25 05:00 121/79 02/17/25 05:00 121/79 02/17/25 04:27 112 H 17 92 02/17/25 04:09 122 H 18 90 02/17/25 04:00 130/97 02/17/25 04:00 130/97 02/17/25 03:54 109 H 14 90 02/17/25 03:33 111 H 17 90 02/17/25 03:00 112/64 02/17/25 03:00 112/64 02/17/25 03:00 100 H 21 90 02/17/25 02:51 94 H 13 90 02/17/25 02:05 97 H 18 95 15 02/17/25 02:03 106 H 20 94 02/17/25 02:00 94/47 L 02/17/25 01:39 105 H 20 90 02/17/25 01:36 114 H 14 92 02/17/25 01:03 97 H 14 90 02/17/25 01:03 91/61 L 02/17/25 01:03 91/61 L 02/17/25 00:54 117 H 15 92 02/17/25 00:30 110 H 14 91 02/17/25 00:06 36.6 C 02/17/25 00:00 112/65 02/17/25 00:00 114 H 20 90 02/17/25 00:00 95 H PG Care Time/CCT Total # of Minutes Spent Total Time Spent with Patient: Total time spent is greater than 50% in coordination of care (as documented) at patient's floor/unit and/or counseling patient: Coding Level of Care Code 08751 SUB INP/OBS CARE 3/50MIN Diagnoses Takotsubo cardiomyopathy I51.81 CAD (coronary artery disease) I25.10 CHF (congestive heart failure) I50.9 Tachycardia R00.0
--- NOTE | 2025-02-17 18:47 | Hospitalist Progress Note ---
Date of Service February 17, 2025 Delayed entry Date of service February 16, 2025 Assessment & Plan (1) Septic shock: Plan: 84-year-old female with past medical history significant for dyslipidemia, prediabetes, history of acute on chronic respiratory failure with hypoxia, peripheral vascular disease with claudication, carotid stenosis, iliac aneurysm, hypertension, abdominal aortic aneurysm, CAD s/p stent comes from home because of some confusion, fevers and diarrhea and found to be in severe sepsis and septic shock. Patient was recently in the hospital was admitted on 01/30/2025 and was discharged on 02/05/2025. During that admission she had severe sepsis se condary to acute diarrheal illness and nonspecific proctitis. During that admission cultures were negative. Initially was treated with Vanco and Zosyn and later was on Augmentin. During that admission she also had rectal bleeding and required 1 unit of PRBCs and also given IV Venofer for iron level less than 10. Xarelto was held but was restarted prior to discharge. She also required IV diuresis for acute CHF and she also found to have acute T12 compression fracture and was seen by orthospine and conservative management recommended. She lives at home with her . and son in the room. Patient is wheelchair-bound. She can transfer to the wheelchair. Today patient had temperature 103 degrees Fahrenheit. Had episodes of diarrhea and confusion. Septic shock secondary to E. coli bacteremia, right lower lobe pneumonia Presented with fever, diarrhea and some confusion Currently mental status okay CT chest and CT abdomen pelvis okay Respiratory BioFire negative Blood cultures: E. coli Urine culture: Negative 02/15 off pressors since 5 am blood culture: gram negative bacilli urine culture: pending transitioned to Ceftriaxone IV continue to monitor closely NonST elevated NE Initial EKG showed ST elevations in lateral leads but repeat EKG no acute ST elevations Initially had chest pain but that got resolved Troponin elevated at 1395 and repeat 4679 and next level was 3536 Could be ACS versus demand ischemia from septic shock ER talked with interventional cardiology and no intervention planned at this time Held home Xarelto and started on IV heparin N.p.o. Close monitor Follow echo 02/15 [employer] consulted troponin trending down possible Takatsubo cardiomyopathy monitor closely Melena Hg stable at 10 heparin drip held Protonix IV BID monitor closely Hyponatremia Sodium 132 Will monitor labs History of CAD status post stent Status post stenting of the circumflex obtuse marginal artery in 2004 Nonobstructive CAD on cardiac catheterization January 2023 Continue aspirin and statin Holding Imdur and metoprolol for septic shock History of peripheral vascular disease Status post left AKA in 2015 Bilateral iliac artery stenting in October 2016 Right axillary to femoral and femoral posterior tibial bypass in June 2019 Continue aspirin and statin Follow-up with vascular surgery Infrarenal abdominal aortic aneurysm Status post prior embolization in June 2021 CAT scan today shows 5.8X 7.1 cm aneurysm Mild fusiform dilatation of ascending thoracic aorta 4 cm Needs close follow-up with vascular surgery History of iron deficiency anemia Received one unit prbc and IV Venofer last admission On iron pills Hemoglobin 10.7- stable Diarrhea Follow stool studies Hypoxia Advanced emphysema per imaging studies in the past Continue oxygen support Nebs as needed T12 compression fracture Pain control Nocturnal hypoxia Uses 2 L at bedtime History of alcohol use Will monitor DVT prophylaxis On IV heparin Disposition ICU CODE STATUS Full code Admission and Anticipated Discharge Date Admission Date: February 14, 2025 Subjective seen resting in bed, comfortable, on 2 L of oxygen via nasal cannula states she feels better overall Breathing continues to improve No cough or fever or sputum production No chest pain No Abdominal pain Tolerating diet well No other new symptoms Review of Systems Review of Systems: all noted and negative except for above Physical Exam Physical Exam: General- oriented x 3, not in distress, speaks in sentences with no effort or accessory muscle use Eyes- anicteric Neck- no JVD Lungs- mild rales at the bases R>L Heart- normal rate, regular rhythm; no murmurs Abdomen- normal bowel sounds, nondistended, soft, no tenderness Extremities- no pretibial edema, no calf tenderness Neuro- alert, oriented x 3; no gross focal neurologic deficits Skin- warm & dry Results & Data Results & Data Vital Signs (Past 12 Hours) Vital Signs Pulse Resp BP Pulse Ox O2 Del Method O2 Flow Rate 02/17/25 11:09 94 H 20 02/17/25 11:01 109/68 02/17/25 10:36 103 H 20 91 High Flow Nasal Cannula 10 02/17/25 10:03 92 H 21 91 02/17/25 10:00 106/73 02/17/25 10:00 106/73 02/17/25 10:00 106/73 02/17/25 09:36 112 H 23 89 L 02/17/25 09:03 117 H 21 87 L 02/17/25 09:00 130/73 02/17/25 09:00 130/73 02/17/25 08:51 129 H 23 81 L 02/17/25 08:15 High Flow Nasal Cannula 8 02/17/25 08:06 109 H 21 90 02/17/25 08:00 125/77 02/17/25 07:57 115 H 20 90 02/17/25 07:11 129/74 02/17/25 07:06 130 H 24 87 L 02/17/25 07:01 146/106 H 02/17/25 07:01 146/106 H 02/17/25 07:01 146/106 H 02/17/25 07:01 146/106 H 02/17/25 07:01 146/106 H 02/17/25 07:00 105 H 18 75 L all noted and reviewed including below
--- NOTE | 2025-02-17 18:54 | Hospitalist Progress Note ---
Date of Service February 17, 2025 Assessment & Plan (1) Septic shock: Plan: 84-year-old female with past medical history significant for dyslipidemia, prediabetes, history of acute on chronic respiratory failure with hypoxia, peripheral vascular disease with claudication, carotid stenosis, iliac aneurysm, hypertension, abdominal aortic aneurysm, CAD s/p stent comes from home because of some confusion, fevers and diarrhea and found to be in severe sepsis and se ptic shock. Patient was recently in the hospital was admitted on 01/30/2025 and was discharged on 02/05/2025. During that admission she had severe sepsis secondary to acute diarrheal illness and nonspecific proctitis. During that admission cultures were negative. Initially was treated with Vanco and Zosyn and later was on Augmentin. During that admission she also had rectal bleeding and required 1 unit of PRBCs and also given IV Venofer for iron level less than 10. Xarelto was held but was restarted prior to discharge. She also required IV diuresis for acute CHF and she also found to have acute T12 compression fracture and was seen by orthospine and conservative management recommended. She lives at home with her . and son in the room. Patient is wheelchair-bound. She can transfer to the wheelchair. Today patient had temperature 103 degrees Fahrenheit. Had episodes of diarrhea. And confusion. Currently patient is alert and awake and oriented x 3. Was able to give her history. Earlier had chest pain but currently denies any chest pain. Denies shortness of breath. No headache. No neck pain. No runny nose or sore throat or cough. No nausea. No abdominal pain. Has chronic back pain. Micturating okay. In the ER she was tachycardic. Blood pressure was soft. She was hypoxic , 87% on room air and requiring 2 L oxygen. Even after fluid bolus her blood pressure did not improve and was started on Levophed drip by the ER. Initial lactic acid was 3.4. Repeat lactic acid 1.4. Initial troponin was 1395 and repeat was 4679 and next repeat is 3536. Initial EKG showed some ST elevation in lateral leads but repeat EKG no acute ST elevation seen. ER talked with the cardiology but no intervention planned at this time. UA came back positive. CT A chest no acute findings. Trace left pleural effusion. CT abdomen pelvis stable occlusion of large infrarenal abdominal aortic aneurysm and both common internal/external iliac arteries. And patency of right presumed axillary to common femoral artery bypass graft. Stable T12 vertebral compression fracture. Seems comfortable at this time. Septic shock E. coli bacteremia Presented with fever, diarrhea and some confusion Currently mental status okay CT chest and CT abdomen pelvis okay Respiratory BioFire negative UA is positive, possible cause of her sepsis Will follow stool studies Received IV Vanco and cefepime in the ER which will be continued Received fluids and currently on Levophed drip Close monitor in the ICU Will follow the cultures Appreciate critical care help. 02/15 off pressors since 5 am blood culture: E. coli urine culture: negative transitioned to Ceftriaxone IV continue to monitor closely 02/17 BP stable overall continue IV Ceftri Acute Hypoxic Respiratory Failure Volume overload Takotsubo cardiomyopathy Still on 10 L of Oxygen via nasal cannula continue Lasix IV NonST elevated OK Initial EKG showed ST elevations in lateral leads but repeat EKG no acute ST elevations Initially had chest pain but that got resolved Troponin elevated at 1395 and repeat 4679 and next level was 3536 Could be ACS versus demand ischemia from septic shock ER talked with interventional cardiology and no intervention planned at this time Held home Xarelto and started on IV heparin N.p.o. 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 troponin trended down Takatsubo cardiomyopathy monitor closely Melena Hg stable at ~10 heparin drip transitioned to usual Xarelto Protonix IV BID monitor closely Hyponatremia Sodium 135 History of CAD status post stent Status post stenting of the circumflex obtuse marginal artery in 2004 Nonobstructive CAD on cardiac catheterization January 2023 Continue aspirin and statin Holding Imdur History of peripheral vascular disease Status post left AKA in 2015 Bilateral iliac artery stenting in October 2016 Right axillary to femoral and femoral posterior tibial bypass in June 2019 Continue aspirin and statin Follow-up with vascular surgery Infrarenal abdominal aortic aneurysm Status post prior embolization in June 2021 CAT scan today shows 5.8X 7.1 cm aneurysm Mild fusiform dilatation of ascending thoracic aorta 4 cm Needs close follow-up with vascular surgery History of iron deficiency anemia Received one unit prbc and IV Venofer last admission On iron pills Hemoglobin- stable pvera; Diarrhea Follow stool studies T12 compression fracture Pain control Nocturnal hypoxia Uses 2 L at bedtime History of alcohol use Will monitor DVT prophylaxis Xarelto Disposition ICU CODE STATUS Full code Admission and Anticipated Discharge Date Admission Date: February 14, 2025 Subjective seen resting in bed, comfortable states she feels ok overall remains on 10 L NC no active shortness of breath, chest pain on my exam tolerating diet so far no other symptoms Review of Systems Review of Systems: all noted and negative except for above Physical Exam Physical Exam: General- oriented x 3, not in distress, speaks in sentences with no effort or accessory muscle use Eyes- anicteric Neck- no JVD Lungs- mild rales at the bases Heart- normal rate, regular rhythm; no murmurs Abdomen- normal bowel sounds, nondistended, soft, no tenderness Extremities- no pretibial edema, no calf tenderness Neuro- alert, oriented x 3; no gross focal neurologic deficits Skin- warm & dry Results & Data Results & Data Vital Signs (Past 12 Hours) Vital Signs Pulse Resp BP Pulse Ox O2 Del Method O2 Flow Rate 02/17/25 11:09 94 H 20 02/17/25 11:01 109/68 02/17/25 10:36 103 H 20 91 High Flow Nasal Cannula 10 02/17/25 10:03 92 H 21 91 02/17/25 10:00 106/73 02/17/25 10:00 106/73 02/17/25 10:00 106/73 02/17/25 09:36 112 H 23 89 L 02/17/25 09:03 117 H 21 87 L 02/17/25 09:00 130/73 02/17/25 09:00 130/73 02/17/25 08:51 129 H 23 81 L 02/17/25 08:15 High Flow Nasal Cannula 8 02/17/25 08:06 109 H 21 90 02/17/25 08:00 125/77 02/17/25 07:57 115 H 20 90 02/17/25 07:11 129/74 02/17/25 07:06 130 H 24 87 L 02/17/25 07:01 146/106 H 02/17/25 07:01 146/106 H 02/17/25 07:01 146/106 H 02/17/25 07:01 146/106 H 02/17/25 07:01 146/106 H 02/17/25 07:00 105 H 18 75 L all noted and reviewed including below
--- NOTE | 2025-02-17 19:50 | Communication Note ---
Date of Service: February 17, 2025 Patient is stable for transfer to PCU. CCM recommends adherence to QHS CPAP and PRN throughout the day, pulmonary hygiene, continued guided-diuresis. She is receiving furosemide 40mg IV BID and this should continue pending clinical improvement and resolution of pulmonary edema and pleural effusions. Advance diet as tolerated. Dr. Palacios accepts patient for downgrade. CCM remains available for continued questions or concerns. Coding Level of Care Code None
[2025-02-17] MEDS: METOPROLOL TARTRATE 25 MG TAB PO SCH (20:51)
[2025-02-18 05:00] LABS: Hematocrit (blood only) 26.9 % (37.0-47.0); Hemoglobin 8.7 g/dl (12.0-16.0); Immature Granulocytes # (auto) 0.06 K/uL (0.01-0.20); Immature Granulocytes % (auto) 0.8 %; Mean Corpuscular Hemoglobin 29.1 pg (25.0-34.0); Mean Corpuscular Volume 90.0 fL (80.0-100.0); Platelet Count 385 K/uL (130-400); RDW Standard Deviation 45.9 fL (36.4-46.3); Red Blood Count 2.99 M/uL (4.20-5.40); White Blood Count 7.70 K/ul (4.8-10.8)
[2025-02-18 05:31] LABS: Anion Gap 5.0 (3-11); Blood Urea Nitrogen 11.0 mg/dl (6-23); Calcium 7.9 mg/dl (8.6-10.3); Carbon Dioxide 25.0 mmol/L (21-32); Chloride 104.0 mmol/L (98-107); Creatinine Clr Calc Pharmacy 53.4 ml/min; Glucose 113.0 mg/dl (70-99(Fasting)); Magnesium 1.9 mg/dl (1.7-2.4); Potassium 3.9 mmol/L (3.5-5.1); Sodium 134.0 mmol/L (136-145)
[2025-02-18] MEDS ORDERED: SODIUM PHOSPHATE 3 MMOL/1 ML INFUSION IV STA (05:36)
[2025-02-18] MEDS: MAGNESIUM OXIDE 400 MG TAB PO SCH (06:24)
[2025-02-18] MEDS: SODIUM PHOSPHATE 21 MMOL in SODIUM CHLORIDE 0.9% 500 ML IV ONE (06:24)
[2025-02-18] MEDS: POTASSIUM CHLORIDE CRTAB 20 MEQ TABCR PO SCH (06:24)
--- NOTE | 2025-02-18 10:33 | XRay Report ---
SINGLE VIEW CHEST CLINICAL HISTORY: Hypoxia. FINDINGS: An AP, portable, upright chest radiograph is compared to study dated 02/17/2025 and correlat ed with chest CT dated 02/14/2025. The heart is enlarged noting atherosclerotic calcification of the t horacic aorta. There is pulmonary vascular congestion. Enlargement of the central pulmonary vessels s uggests pulmonary artery hypertension. Advanced emphysema and chronic interstitial thickening is anibal lar to previous. There are layering pleural effusions with dependent consolidation. Consolidation at the right lung base is asymmetrically greater than the left. No pneumothorax is seen. The skeletal st ructures are osteopenic. The bony thorax is grossly intact. IMPRESSION: 1. Cardiomegaly and emphysema with evidence of congestive failure. 2. Layering pleural effusions with dependent consolidation. 3. There is asymmetrically increased consolidation at the right lung base. Correlate clinically for e vidence of a superimposed pneumonia/aspiration pneumonitis. Radiographic follow-up to resolution is r ecommended. ACT 112: Negative or not required by law. Electronically signed by: Conor White M.D. 02/18/2025 10:31 AM
[2025-02-18 11:01] LABS: Hematocrit (blood only) 28.0 % (37.0-47.0); Hemoglobin 9.2 g/dl (12.0-16.0)
--- NOTE | 2025-02-18 15:56 | CT Scan Report ---
EXAMINATION: Chest CT without CLINICAL HISTORY: CHF, rule out pneumonia, pleural effusion COMPARISON: Chest radiograph 02/16/2025, CT 02/14/2025 TECHNIQUE: Contiguous axial images were obtained through the chest without the use of intravenous contrast. Sagittal and coronal reformations are supplied. FINDINGS: Severe pulmonary emphysema present. Moderate to large bilateral pleural effusions present, appearing are increased in the interval. Large area of airspace consolidation in the right lower lobe, also appearing. Honeycombing noted in the subpleural lower lobes. No pneumothorax. Heart size is enlarged, unchanged. No pericardial effusion. Advanced atherosclerotic disease. Trachea and mainstem bronchi patent. No adenopathy identified. Medical tubing noted in the right chest wall, not fully evaluated. Ascending aorta with possible repair or stent noted at the edge of the [id number]. Appearance of the spine unchanged with osseous demineralization and compression fractures. IMPRESSION: 1. Moderate to large large bilateral pleural effusions, appearing increased in the interval, with cardiomegaly and CT features of volume overload/CHF. 2. Right lower lobe airspace consolidation favoring pneumonia. 3. Advanced emphysema and pulmonary fibrosis/interstitial lung disease. ACT 112: Positive. There are findings on this examination that require communication between the performing entity and the patient following Patient Test Result Information Act ([place] ACT 112) guidelines. Electronically signed by Lety Reece 02-18-2025 3:56 PM
--- NOTE | 2025-02-18 16:30 | Hospitalist Progress Note ---
Date of Service February 18, 2025 Assessment & Plan (1) Septic shock: Plan: (1) Septic shock: Septic shock E. coli bacteremia Possible right lower lobe pneumonia Presented with fever, diarrhea and some confusion Currently mental status okay CT chest and CT abdomen pelvis okay Respiratory BioFire negative UA is positive, possible cause of her sepsis Will follow stool studies Received IV Vanco and cefepime in the ER which will be continued Received fluids and currently on Levophed drip Close monitor in the ICU Will follow the cultures Appreciate critical care help. 02/15 off pressors since 5 am blood culture: E. coli urine culture: negative transitioned to Ceftriaxone IV continue to monitor closely 02/17 BP stable overall continue IV Ceftriaxone 02/[address] chest today revealing possible right lower lobe pneumonia DC IV ceftriaxone, expand antibiotic coverage to IV Zosyn Acute Hypoxic Respiratory Failure Volume overload Takotsubo cardiomyopathy Still on 10 L of Oxygen via nasal cannula -- CT chest showing moderate to large bilateral pleural effusions Possible right lower lobe consolidation- pneumonia -- continue Lasix IV twice daily changes ceftriaxone to Zosyn NonST elevated RI Initial EKG showed ST elevations in lateral leads but repeat EKG no acute ST elevations Initially had chest pain but that got resolved Troponin elevated at 1395 and repeat 4679 and next level was 3536 Could be ACS versus demand ischemia from septic shock ER talked with interventional cardiology and no intervention planned at this time Held home Xarelto and started on IV heparin N.p.o. 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 troponin trended down Takatsubo cardiomyopathy monitor closely Melena Hg stable at ~10 heparin drip transitioned to usual Xarelto Protonix IV BID monitor closely Hyponatremia Sodium 135 History of CAD status post stent Status post stenting of the circumflex obtuse marginal artery in 2004 Nonobstructive CAD on cardiac catheterization January 2023 Continue aspirin and statin Holding Imdur History of peripheral vascular disease Status post left AKA in 2015 Bilateral iliac artery stenting in October 2016 Right axillary to femoral and femoral posterior tibial bypass in June 2019 Continue aspirin and statin Follow-up with vascular surgery Infrarenal abdominal aortic aneurysm Status post prior embolization in June 2021 CAT scan today shows 5.8X 7.1 cm aneurysm Mild fusiform dilatation of ascending thoracic aorta 4 cm Needs close follow-up with vascular surgery History of iron deficiency anemia Received one unit prbc and IV Venofer last admission On iron pills Hemoglobin- stable pvera; Diarrhea Follow stool studies T12 compression fracture Pain control Nocturnal hypoxia Uses 2 L at bedtime History of alcohol use Will monitor DVT prophylaxis Xarelto Disposition ICU CODE STATUS Full code Admission and Anticipated Discharge Date Admission Date: February 14, 2025 Subjective seen resting in bed, comfortable, on 10 L of O2 via high flow cannula Not in distress States she feels okay overall Breathing is about the same No abdominal pain, nausea, fevers or chills Appetite is okay no chest pain No other new symptoms Review of Systems Review of Systems: all noted and negative except for above Physical Exam Physical Exam: General- oriented x 3, not in distress, speaks in sentences with no effort or accessory muscle use Eyes- anicteric Neck- no JVD Lungs-mild rales at the bases no wheezing Heart- normal rate, regular rhythm; no murmurs Abdomen- normal bowel sounds, nondistended, soft, no tenderness Extremities- no pretibial edema, no calf tenderness Neuro- alert, oriented x 3; no gross focal neurologic deficits Skin- warm & dry Results & Data Results & Data Vital Signs (Past 12 Hours) Vital Signs Temp Pulse Resp BP Pulse Ox O2 Del Method O2 Flow Rate 02/18/25 12:09 88 20 92 High Flow Nasal Cannula 10 02/18/25 12:00 118/58 L 02/18/25 12:00 118/58 L 02/18/25 11:57 101 H 29 H 91 02/18/25 11:50 36.9 C 02/18/25 10:00 131 H 23 02/18/25 08:12 128 H 20 93 02/18/25 08:00 127/89 02/18/25 08:00 127/89 02/18/25 08:00 127/89 02/18/25 08:00 127/89 02/18/25 07:57 132 H 24 90 High Flow Nasal Cannula 10 02/18/25 07:50 36.8 C 02/18/25 07:28 150/100 H 02/18/25 07:28 150/100 H 02/18/25 07:20 High Flow Nasal Cannula 7 02/18/25 07:06 123 H 19 92 02/18/25 07:00 132 H 23 92 02/18/25 04:44 36.8 C all noted and reviewed including below
[2025-02-18] MEDS: PIPERACILLIN/TAZOBACTAM 4.5 GM/100 ML BAG IV STA (17:08)
[2025-02-18] MEDS: PIPERACILLIN/TAZOBACTAM 4.5 GM/100 ML BAG IV SCH (21:17)
[2025-02-18] MEDS: INSULIN ASPART PER UNIT CHARGE SC SCH (21:57)
[2025-02-19 05:42] LABS: Hematocrit (blood only) 29.6 % (37.0-47.0); Hemoglobin 9.7 g/dl (12.0-16.0); Immature Granulocytes # (auto) 0.09 K/uL (0.01-0.20); Immature Granulocytes % (auto) 1.1 %; Mean Corpuscular Hemoglobin 29.5 pg (25.0-34.0); Mean Corpuscular Volume 90.0 fL (80.0-100.0); Platelet Count 447 K/uL (130-400); RDW Standard Deviation 45.7 fL (36.4-46.3); Red Blood Count 3.29 M/uL (4.20-5.40); White Blood Count 7.89 K/ul (4.8-10.8)
[2025-02-19 06:00] LABS: Alanine Aminotransferase 21.0 U/L (7-52); Albumin Globulin Ratio 0.8 (0.9-2); Alkaline Phosphatase 93.0 U/L (34-104); Anion Gap 4.0 (3-11); Bilirubin,Total 0.4 mg/dl (0.2-1.0); Blood Urea Nitrogen 10.0 mg/dl (6-23); Calcium 8.1 mg/dl (8.6-10.3); Carbon Dioxide 30.0 mmol/L (21-32); Chloride 103.0 mmol/L (98-107); Creatinine Clr Calc Pharmacy 45.3 ml/min; Globulin 3.4 gm/dl (2.5-4.0); Glucose 112.0 mg/dl (70-99(Fasting)); Magnesium 1.9 mg/dl (1.7-2.4); Potassium 4.3 mmol/L (3.5-5.1); Sodium 137.0 mmol/L (136-145); Total Protein 6.0 gm/dl (6.0-8.3)
--- NOTE | 2025-02-19 08:38 | Pulmonary Consultation ---
Date of Consultation February 19, 2025 Assessment & Plan (1) Pulmonary edema: (2) Acute hypoxic respiratory failure: (3) COPD with emphysema: (4) Pleural effusion: Plan CT chest 02/18/2025 personally reviewed: Severe centrilobular emphysema appreciated bilaterally Small to moderate right-sided pleural effusion with dependent atelectasis Small left-sided pleural effusion Questionable consolidative process in the right lower lobe Cardiomegaly Minimal mediastinal lymphadenopathy 2D echo 02/16/2025: EF 30-35%, mild concentric LVH, RV normal in size and function -- Acute hypoxic respiratory failure Multifactorial I do think majority of the issue is coming from systolic CHF with bilateral pleural effusion Procalcitonin 31.3 on 02/16/2025, trending down to 3.48 on 02/19/2025 Respiratory BioFire negative for everything on 02/14/2025 --COPD with emphysema Not on any inhalers at home Would recommend Trelegy 100 or BrezTri on discharge Absolute eosinophil count 160 on 02/19/2025 --Peripheral vascular disease with claudication On Xarelto Plan: Start the patient on Incruse as well as nebulized formoterol and budesonide while in the hospital On discharge would recommend either Trelegy 100 BrezTri Would recommend to continue with diuretics to keep the patient negative balance O2 supplementation to keep oxygen saturation between 90-92% Complete the course of antibiotics for total of 7 days BiPAP nightly and as needed shortness of breath will be beneficial. No plan for thoracentesis I spent more than 75 minutes looking in the chart, images, discussing the plan of care with the patient, RN as well as primary team Please note the above document was generated using voice recognition software. It may contain grammatical, syntax or spelling errors.Any formal questions or concerns about the content, text or information contained within the body of this dictation should be directly addressed to the provider for clarification. History of Present Illness Attending Physician: Godwin Palacios MD History of Present Illness 84-year-old female was admitted to the hospital in the ICU with mixed cardiogenic and septic shock, A-fib RVR and was subsequently downgraded. Past medical history of dyslipidemia, prediabetes, chronic hypoxic respiratory failure, PVD with claudication on Xarelto, carotid artery stenosis, history of iliac aneurysm, hypertension, aortic aneurysm status post embolization in 2021, CAD status post PCI, CHF, T12 compression fracture. The patient presented to the emergency department 02/14/2025 with confusion, fevers and diarrhea. The patient has a recent medical history of hospital admission from 01/30/2025 to 02/05/2025. She was treated with severe sepsis secondary to acute diarrheal illness and pancolitis. The patient was treated with vancomycin, Zosyn and Augmentin during that hospital stay. She also had a rectal bleed that required a unit of PRBCs and iron transfusion. Her home anticoagulation was resumed prior to discharge. Pulmonary consulted for hypoxia and pleural effusion At the time of examination patient's was in the room. Patient was saturating 97-98% on 9 L nasal cannula, I was able to go down to 5 L and she was still saturating 92-93% She was finishing her breakfast. She states she is feeling much better compared to yesterday She is coughing bringing up clear phlegm. Denies any hemoptysis She has been diuresing well. No unusual headache or blurry vision No nausea or vomiting Appetite is fair Social history:> [id number] smoking history, quit at the age of 64. No pets at home. Denies any history of lung cancer in the family Allergies Allergy/AdvReac Type Severity Reaction Status Date / Time diphenhydramine AdvReac Intermediate heart Verified 01/04/25 10:36 racing Home Medications Medication Instructions Recorded Confirmed Type atorvastatin 40 mg tablet (Lipitor) 40 mg PO QPM 03/24/18 02/14/25 History metoprolol tartrate 50 mg tablet 50 mg PO BID 03/24/18 02/14/25 History (Lopressor) multivitamin 1 tab PO QAM 03/24/18 02/14/25 History furosemide 40 mg tablet (Lasix) 40 mg PO BID 08/06/19 02/14/25 History aspirin 81 mg tablet,delayed 81 mg PO QAM #0 tabs 08/07/19 02/14/25 Rx release rivaroxaban 20 mg tablet (Xarelto) 20 mg PO HS #0 tabs 08/07/19 02/14/25 Rx cilostazol 100 mg tablet 100 mg PO BID 03/06/20 02/14/25 History omega 2-nqn-gmj-fish oil 300 1 cap PO QAM 02/20/23 02/14/25 History mg-1,000 mg capsule (Fish Oil) isosorbide mononitrate 30 mg 30 mg PO QAM #30 tabs 02/22/23 02/14/25 Rx tablet,extended release 24 hr calcium carbonate (Calcium 600) 600 mg PO DAILY 07/14/23 02/14/25 History nitroglycerin 0.4 mg sublingual 0.4 mg sublingual Q5M PRN Chest 07/12/24 02/14/25 Rx tablet (Nitrostat) Pain #20 tabs potassium chloride 20 mEq 20 meq PO AMHS 01/30/25 02/14/25 History tablet,extended release L.acidop,casei,lactis,rham-B.lact,brandon 10 cap PO DAILY #10 caps 02/05/25 02/14/25 Rx 625 mg (10 billion cell) capsule (Advanced Probiotic) ferrous sulfate 325 mg (65 mg 325 mg PO BID #60 tabs 02/05/25 02/14/25 Rx iron) tablet,delayed release lidocaine 4 % topical patch 1 patch topical DAILY 10 days #10 02/05/25 02/14/25 Rx ea tramadol 50 mg tablet 50 mg PO Q6 PRN Pain, Moderate 02/14/25 02/14/25 History Patient History Medical History Prediabetes Wheelchair dependence History of recent hospitalization 01/2023 [facility] - chest pain On home O2 qHS On anticoagulant therapy Lower GI bleed HISTORY OF FROM HEMORRHOID Peripheral vascular disease Osteoarthritis Hypertension controlled, stable per pt Hyperlipidemia Surgical History S/P insertion of iliac artery stent History of cardiac cath 02/22/23 - [facility] - CP - no stents. History of esophagogastroduodenoscopy (EGD) History of incision and drainage left inner thigh 02/08/2020: LMA#4 atraumatic x 1. No issues per anesthesia postop progress note. 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-DOES NOT WEAR PROSTHESIS History of appendectomy History of bilateral tubal ligation H/O breast surgery X 2-BENIGN LUMPECTOMY Previous back surgery BONE SPUR REMOVED Family History Son Family history of diabetes mellitus Other No family history of adverse response to anesthesia Social History Smoking Status: Former smoker Tobacco Type: Cigarettes Smoking End Date: 20 years ago; Second Hand Exposure: No; Do You Dip or Chew Tobacco: No; Hx Alcohol Use: Yes Alcohol type: beer Hx Substance Use: No Preferred Language: Turkmen Communication Ability: Effective Pr Specialist Required: No Beliefs That Will Affect Care: None marital status: Current Living Situation: Spouse Current Living Situation Comment: [facility] Other Information That Helps Us Care for You: No Feels Safe at Home: Yes Safety Concerns: Feels Safe At This Time Assistive Devices: None, Lift Chair, Walker and Wheelchair Review of Systems 2 Review of Systems: All systems reviewed & are unremarkable except as noted in HPI & below Physical Exam 2 Physical Exam: Constitutional: No acute distress, frail-appearing HEENT: EOMI, PERRLA Respiratory system: Decreased air entry bilaterally, no wheeze, no rhonchi, positive crackles bilaterally CVS: S1-S2 positive, no murmurs or gallops Abdomen: Soft, nontender, nondistended, positive bowel sounds x4 Extremities: +2 pulses bilaterally radialis/ dorsalis pedis, no cyanosis, minimal pitting edema right lower extremity, left AKA Neuro: Awake alert oriented x3 Psych: Normal mood and affect G/U: Positive [place] Skin: no rashes, warm and dry Lymphatic: no cervical or axillary lymphadenopathy Results & Data Results & Data Vital Signs (Past 12 Hours) Vital Signs Temp Pulse Pulse Resp BP Pulse Ox O2 Del Method 02/19/25 07:33 36.6 C 84 16 129/75 93 High Flow Nasal Cannula 02/19/25 03:45 88 15 96 02/19/25 03:10 36.3 C L 64 20 126/70 94 CPAP 02/18/25 23:35 94 H 02/18/25 23:28 36.8 C 83 20 102/62 93 CPAP 02/18/25 22:10 67 17 95 02/18/25 21:45 High Flow Nasal Cannula O2 Flow Rate 02/19/25 07:33 9 02/19/25 03:45 9 02/19/25 03:10 02/18/25 23:35 02/18/25 23:28 02/18/25 22:10 9 02/18/25 21:45 10 Laboratory Results 02/19/25 05:23 02/19/25 05:23 PG Care Time/CCT Total # of Minutes Spent Total Time Spent with Patient: Total time spent is greater than 50% in coordination of care (as documented) at patient's floor/unit and/or counseling patient: [place] [address] INT INP/OBS CARE 3/75MIN Patient Type New Diagnoses Pulmonary edema J81.1 Acute hypoxic respiratory failure J96.01 COPD with emphysema J43.9 Pleural effusion J90
[2025-02-19] MEDS: UMECLIDINIUM BROMIDE 62.5MCG/BLISTER 7 PUFFS/INHALER INH SCH (16:27)
--- NOTE | 2025-02-19 17:11 | Hospitalist Progress Note ---
Date of Service February 19, 2025 Assessment & Plan (1) Septic shock: Plan: (1) Septic shock: Septic shock E. coli bacteremia Possible right lower lobe pneumonia Presented with fever, diarrhea and some confusion Currently mental status okay CT chest and CT abdomen pelvis okay Respiratory BioFire negative UA is positive, possible cause of her sepsis Will follow stool studies Received IV Vanco and cefepime in the ER which will be continued Received fluids and currently on Levophed drip Close monitor in the ICU Will follow the cultures Appreciate critical care help. 02/15 off pressors since 5 am blood culture: E. coli urine culture: negative transitioned to Ceftriaxone IV continue to monitor closely 02/17 BP stable overall continue IV Ceftriaxone 02/[address] chest today revealing possible right lower lobe pneumonia DC IV ceftriaxone, expand antibiotic coverage to IV Zosyn 02/19 Continue IV Zosyn Acute Hypoxic Respiratory Failure Volume overload Takotsubo cardiomyopathy Still on 10 L of Oxygen via nasal cannula -- CT chest showing moderate to large bilateral pleural effusions Possible right lower lobe consolidation- pneumonia -- continue Lasix IV twice daily changes ceftriaxone to Zosyn 02/19 On 6 L by nasal cannula today Continue IV Lasix Continue IV Zosyn Perforomist and Pulmicort, Teri Ellipta ordered Appreciate pulmonology service recommendation NonST elevated PR Initial EKG showed ST elevations in lateral leads but repeat EKG no acute ST elevations Initially had chest pain but that got resolved Troponin elevated at 1395 and repeat 4679 and next level was 3536 Could be ACS versus demand ischemia from septic shock ER talked with interventional cardiology and no intervention planned at this time Held home Xarelto and started on IV heparin N.p.o. Close monitor Follow echo 02/17 Mapping Specialist consulted troponin trended down Takatsubo cardiomyopathy monitor closely Melena Hg stable at ~10 heparin drip transitioned to usual Xarelto Protonix IV BID monitor closely Hyponatremia Sodium 135 History of CAD status post stent Status post stenting of the circumflex obtuse marginal artery in 2004 Nonobstructive CAD on cardiac catheterization January 2023 Continue aspirin and statin Holding Imdur History of peripheral vascular disease Status post left AKA in 2015 Bilateral iliac artery stenting in October 2016 Right axillary to femoral and femoral posterior tibial bypass in June 2019 Continue aspirin and statin Follow-up with vascular surgery Infrarenal abdominal aortic aneurysm Status post prior embolization in June 2021 CAT scan today shows 5.8X 7.1 cm aneurysm Mild fusiform dilatation of ascending thoracic aorta 4 cm Needs close follow-up with vascular surgery History of iron deficiency anemia Received one unit prbc and IV Venofer last admission On iron pills Hemoglobin- stable pvera; Diarrhea Follow stool studies T12 compression fracture Pain control Nocturnal hypoxia Uses 2 L at bedtime History of alcohol use Will monitor DVT prophylaxis Xarelto Disposition ICU CODE STATUS Full code Admission and Anticipated Discharge Date Admission Date: February 14, 2025 Subjective seen resting in bed, comfortable, not in distress, on 9 L of O2 via nasal cannula Patient appears more alert, brighter States she feels that she is improving overall Breathing is okay No cough or sputum No chest pain Abdominal pain No other new symptoms Review of Systems Review of Systems: all noted and negative except for above Physical Exam Physical Exam: General- oriented x 3, not in distress, speaks in sentences with no effort or accessory muscle use Eyes- anicteric Neck- no JVD Lungs- mild rales at the bases, no wheezing Heart- normal rate, regular rhythm; no murmurs Abdomen- normal bowel sounds, nondistended, soft, nontender Extremities- no pretibial edema, no calf tenderness Neuro- alert, oriented x 3; no gross focal neurologic deficits Skin- warm & dry Results & Data Results & Data Vital Signs (Past 12 Hours) Vital Signs Temp Pulse Pulse Pulse Resp BP Pulse Ox 02/19/25 15:11 36.3 C L 99 H 18 121/75 92 02/19/25 11:21 36.3 C L 88 18 118/74 90 02/19/25 08:00 95 H 02/19/25 07:33 36.6 C 84 16 129/75 93 02/19/25 07:30 O2 Del Method O2 Flow Rate 02/19/25 15:11 Nasal Cannula 6 02/19/25 11:21 Room Air 02/19/25 08:00 02/19/25 07:33 High Flow Nasal Cannula 9 02/19/25 07:30 High Flow Nasal Cannula 9 all noted and reviewed including below
[2025-02-19] MEDS: BUDESONIDE 0.25 MG/2 ML VIAL (PULMICORT) NEB SCH (20:25)
[2025-02-19] MEDS: FORMOTEROL 20 MCG/2 ML VIAL INH SCH (20:26)
[2025-02-20] MEDS: MELATONIN 3 MG TAB PO PRN (01:02)
[2025-02-20 07:41] LABS: Hematocrit (blood only) 29.1 % (37.0-47.0); Hemoglobin 9.6 g/dl (12.0-16.0); Immature Granulocytes # (auto) 0.09 K/uL (0.01-0.20); Immature Granulocytes % (auto) 1.0 %; Mean Corpuscular Hemoglobin 29.2 pg (25.0-34.0); Mean Corpuscular Volume 88.4 fL (80.0-100.0); Platelet Count 475 K/uL (130-400); RDW Standard Deviation 44.9 fL (36.4-46.3); Red Blood Count 3.29 M/uL (4.20-5.40); White Blood Count 8.66 K/ul (4.8-10.8)
--- NOTE | 2025-02-20 07:52 | Pulmonology Progress Note ---
Date of Service February 20, 2025 Assessment & Plan (1) Pulmonary edema: (2) Acute hypoxic respiratory failure: (3) COPD with emphysema: (4) Pleural effusion: Plan CT chest 02/18/2025 personally reviewed: Severe centrilobular emphysema appreciated bilaterally Small to moderate right-sided pleural effusion with dependent atelectasis Small left-sided pleural effusion Questionable consolidative process in the right lower lobe Cardiomegaly Minimal mediastinal lymphadenopathy 2D echo 02/16/2025: EF 30-35%, mild concentric LVH, RV normal in size and function -- Acute hypoxic respiratory failure Multifactorial I do think majority of the issue is coming from systolic CHF with bilateral pleural effusion Procalcitonin 31.3 on 02/16/2025, trending down to 3.48 on 02/19/2025 Respiratory BioFire negative for everything on 02/14/2025 BNP 2200 on 02/20/2025 --COPD with emphysema Not on any inhalers at home Would recommend Trelegy 100 or BrezTri on discharge Absolute eosinophil count 160 on 02/19/2025 --Peripheral vascular disease with claudication On Xarelto Plan: In/out: -730, urine output 1450, positive 420 mL since coming to the hospital Continue with Incruse as well as nebulized formoterol and budesonide while in the hospital On discharge would recommend either Trelegy 100 or BrezTri Continue with diuretics to keep the patient negative balance O2 supplementation to keep oxygen saturation between 90-92% Complete the course of antibiotics for total of 7 days from pulmonary perspective BiPAP nightly and as needed shortness of breath will be beneficial. Continue with incentive spirometry Please note the above document was generated using voice recognition software. It may contain grammatical, syntax or spelling errors.Any formal questions or concerns about the content, text or information contained within the body of this dictation should be directly addressed to the provider for clarification. Admission and Anticipated Discharge Date Admission Date: February 14, 2025 Subjective Patient seen and examined at bedside. No acute distress, no adverse events overnight She was saturating 99% on 6 L nasal cannula, I went down to 4 L She stated overall she is feeling better Has been using incentive spirometry Coughing up clear phlegm. Denies any headache. Fair appetite, no nausea or vomiting Review of Systems 2 Review of Systems: All systems reviewed & are unremarkable except as noted in Subjective Physical Exam 2 Physical Exam: Constitutional: No acute distress, frail-appearing HEENT: EOMI, PERRLA Respiratory system: Decreased air entry bilaterally, no wheeze, no rhonchi, positive crackles bilaterally CVS: S1-S2 positive, no murmurs or gallops Abdomen: Soft, nontender, nondistended, positive bowel sounds x4 Extremities: +2 pulses bilaterally radialis/ dorsalis pedis, no cyanosis, no edema, left AKA Neuro: Awake alert oriented x3 Psych: Normal mood and affect G/U: Positive Corbett Skin: no rashes, warm and dry Lymphatic: no cervical or axillary lymphadenopathy Results & Data Results & Data Vital Signs (Past 12 Hours) Vital Signs Temp Pulse Pulse Pulse Resp BP Pulse Ox 02/20/25 07:30 36.8 C 93 H 16 92 02/20/25 03:10 36.6 C 100 H 20 119/74 93 02/19/25 22:52 77 02/19/25 22:50 89 14 92 02/19/25 22:36 36.5 C 67 18 107/65 94 02/19/25 20:26 89 18 96 02/19/25 20:00 O2 Del Method O2 Flow Rate 02/20/25 07:30 Nasal Cannula 2 02/20/25 03:10 Nasal Cannula 02/19/25 22:52 02/19/25 22:50 6 02/19/25 22:36 Nasal Cannula 02/19/25 20:26 Nasal Cannula 6 02/19/25 20:00 CPAP, High Flow Nasal Cannula 6 Laboratory Results 02/20/25 06:53 PG Care Time/CCT Total # of Minutes Spent Total Time Spent with Patient: Total time spent is greater than 50% in coordination of care (as documented) at patient's floor/unit and/or counseling patient: Coding Level of Care Code 59660 SUB INP/OBS CARE 2/35MIN Diagnoses Pulmonary edema J81.1 Acute hypoxic respiratory failure J96.01 COPD with emphysema J43.9 Pleural effusion J90
[2025-02-20 08:03] LABS: Alanine Aminotransferase 21.0 U/L (7-52); Albumin Globulin Ratio 0.8 (0.9-2); Alkaline Phosphatase 93.0 U/L (34-104); Anion Gap 8.0 (3-11); Bilirubin,Total 0.5 mg/dl (0.2-1.0); Blood Urea Nitrogen 9.0 mg/dl (6-23); Calcium 8.1 mg/dl (8.6-10.3); Carbon Dioxide 28.0 mmol/L (21-32); Chloride 101.0 mmol/L (98-107); Creatinine Clr Calc Pharmacy 50.1 ml/min; Globulin 3.2 gm/dl (2.5-4.0); Glucose 116.0 mg/dl (70-99(Fasting)); Magnesium 1.7 mg/dl (1.7-2.4); Potassium 3.3 mmol/L (3.5-5.1); Sodium 137.0 mmol/L (136-145); Total Protein 5.8 gm/dl (6.0-8.3)
[2025-02-20] MEDS: POTASSIUM CHLORIDE 10 MEQ TABCR PO STA (08:57)
--- NOTE | 2025-02-20 17:14 | Hospitalist Progress Note ---
Date of Service February 20, 2025 Assessment & Plan (1) Septic shock: Plan: (1) Septic shock: Plan: (1) Septic shock: Septic shock E. coli bacteremia Possible right lower lobe pneumonia Presented with fever, diarrhea and some confusion Currently mental status okay CT chest and CT abdomen pelvis okay Respiratory BioFire negative urine culture: Negative Blood cultures: E. coli patient received IV pressors at the ICU Received cefepime, ceftriaxone, currently on Zosyn for treatment of concurrent pneumonia 02/20 Hemodynamically stable so far ID consulted for antibiotic management Acute Hypoxic Respiratory Failure Volume overload Takotsubo cardiomyopathy Still on 10 L of Oxygen via nasal cannula -- CT chest showing moderate to large bilateral pleural effusions Possible right lower lobe consolidation- pneumonia 02/20 Patient initially required high flow O2, and was diuresed with IV Lasix Patient responding well, currently down to 2 L of O2 via nasal cannula Pulmonology service consulted Perforomist and Pulmicort, Teri Giron ordered Appreciate pulmonology service recommendation awaiting further recommendations for antibiotic regimen from ID NonST elevated [place] Initial EKG showed ST elevations in lateral leads but repeat EKG no acute ST elevations Initially had chest pain but that got resolved Troponin elevated at 1395 and repeat 4679 and next level was 3536 Could be ACS versus demand ischemia from septic shock ER talked with interventional cardiology and no intervention planned at this time Held home Xarelto and started on IV heparin 02/17 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 troponin trended down (+) Takatsubo cardiomyopathy monitor closely Melena resolved Hg stable at ~10 heparin drip transitioned to usual Xarelto Protonix IV BID monitor closely Hyponatremia Sodium 137 History of CAD status post stent Status post stenting of the circumflex obtuse marginal artery in 2004 Nonobstructive CAD on cardiac catheterization January 2023 Continue aspirin and statin Holding Imdur History of peripheral vascular disease Status post left AKA in 2015 Bilateral iliac artery stenting in October 2016 Right axillary to femoral and femoral posterior tibial bypass in June 2019 Continue aspirin and statin Follow-up with vascular surgery Infrarenal abdominal aortic aneurysm Status post prior embolization in June 2021 CAT scan today shows 5.8X 7.1 cm aneurysm Mild fusiform dilatation of ascending thoracic aorta 4 cm Needs close follow-up with vascular surgery History of iron deficiency anemia Received one unit prbc and IV Venofer last admission On iron pills Hemoglobin- stable pvera; Diarrhea resolved T12 compression fracture Pain control Nocturnal hypoxia Uses 2 L at bedtime History of alcohol use no signs of alcohol withdrawal DVT prophylaxis Xarelto Disposition pending lives at home wheelchair bound OT eval possible d/c in 1-2 days CODE STATUS Full code Admission and Anticipated Discharge Date Admission Date: February 14, 2025 Subjective seen resting in bed, comfortable, not in distress, on 9 L of O2 via nasal cannula Patient appears more alert, brighter States she feels that she is improving overall Breathing is okay No cough or sputum No chest pain Abdominal pain No other new symptoms Review of Systems Review of Systems: all noted and negative except for above Physical Exam Physical Exam: General- oriented x 3, not in distress, speaks in sentences with no effort or accessory muscle use Eyes- anicteric Neck- no JVD Lungs- mild rales at the bases, no wheezing Heart- normal rate, regular rhythm; no murmurs Abdomen- normal bowel sounds, nondistended, soft, nontender Extremities- no pretibial edema, no calf tenderness Neuro- alert, oriented x 3; no gross focal neurologic deficits Skin- warm & dry Results & Data Results & Data Vital Signs (Past 12 Hours) Vital Signs Temp Pulse Pulse Pulse Resp BP Pulse Ox 02/20/25 15:35 36.6 C 82 16 105/59 L 95 02/20/25 13:47 91 H 02/20/25 11:03 83 16 106/67 93 02/20/25 09:00 02/20/25 07:30 36.8 C 93 H 16 92 O2 Del Method O2 Flow Rate 02/20/25 15:35 Nasal Cannula 2 02/20/25 13:47 02/20/25 11:03 Nasal Cannula 4 02/20/25 09:00 High Flow Nasal Cannula 4 02/20/25 07:30 Nasal Cannula 2 all noted and reviewed including below
[2025-02-21 08:12] LABS: Hematocrit (blood only) 29.9 % (37.0-47.0); Hemoglobin 9.6 g/dl (12.0-16.0); Immature Granulocytes # (auto) 0.10 K/uL (0.01-0.20); Immature Granulocytes % (auto) 1.2 %; Mean Corpuscular Hemoglobin 28.8 pg (25.0-34.0); Mean Corpuscular Volume 89.8 fL (80.0-100.0); Platelet Count 493 K/uL (130-400); RDW Standard Deviation 45.8 fL (36.4-46.3); Red Blood Count 3.33 M/uL (4.20-5.40); White Blood Count 8.43 K/ul (4.8-10.8)
[2025-02-21 08:29] LABS: Alanine Aminotransferase 19.0 U/L (7-52); Albumin Globulin Ratio 0.8 (0.9-2); Alkaline Phosphatase 87.0 U/L (34-104); Anion Gap 7.0 (3-11); Bilirubin,Total 0.5 mg/dl (0.2-1.0); Blood Urea Nitrogen 8.0 mg/dl (6-23); Calcium 8.2 mg/dl (8.6-10.3); Carbon Dioxide 29.0 mmol/L (21-32); Chloride 101.0 mmol/L (98-107); Creatinine Clr Calc Pharmacy 52.2 ml/min; Globulin 3.2 gm/dl (2.5-4.0); Glucose 110.0 mg/dl (70-99(Fasting)); Magnesium 1.7 mg/dl (1.7-2.4); Potassium 3.4 mmol/L (3.5-5.1); Sodium 137.0 mmol/L (136-145); Total Protein 5.8 gm/dl (6.0-8.3)
--- NOTE | 2025-02-21 08:33 | Pulmonology Progress Note ---
Date of Service February 21, 2025 Assessment & Plan (1) Pulmonary edema: (2) Acute hypoxic respiratory failure: (3) COPD with emphysema: (4) Pleural effusion: Plan CT chest 02/18/2025 personally reviewed: Severe centrilobular emphysema appreciated bilaterally Small to moderate right-sided pleural effusion with dependent atelectasis Small left-sided pleural effusion Questionable consolidative process in the right lower lobe Cardiomegaly Minimal mediastinal lymphadenopathy 2D echo 02/16/2025: EF 30-35%, mild concentric LVH, RV normal in size and function -- Acute hypoxic respiratory failure Multifactorial I do think majority of the issue is coming from systolic CHF with bilateral pleural effusion Procalcitonin 31.3 on 02/16/2025, trending down to 3.48 on 02/19/2025 Respiratory BioFire negative for everything on 02/14/2025 BNP 2200 on 02/20/2025 --COPD with emphysema Not on any inhalers at home Would recommend Trelegy 100 or BrezTri on discharge Absolute eosinophil count 160 on 02/19/2025 --Peripheral vascular disease with claudication On Xarelto Admission and Anticipated Discharge Date Admission Date: February 14, 2025 Supervising Physician Co-Signing Physician Notes I saw and evaluated the patient with HUEY Owen, and agree with findings and plan as documented in the note. Patient seen and examined at bedside. No acute distress, no adverse events overnight She was saturating 92-93% on 3 L nasal cannula, we went down to 2 L. Overall she says she is feeling better. Has been diuresing well Denies any nausea or vomiting Has been afebrile Constitutional: No acute distress, frail-appearing HEENT: EOMI, PERRLA Respiratory system: Decreased air entry bilaterally, no wheeze, no rhonchi, positive crackles bilaterally CVS: S1-S2 positive, no murmurs or gallops Abdomen: Soft, nontender, nondistended, positive bowel sounds x4 Extremities: +2 pulses bilaterally radialis/ dorsalis pedis, no cyanosis, no edema, left AKA Neuro: Awake alert oriented x3 Psych: Normal mood and affect G/U: Positive Corbett Plan: In/out: -1616, urine output 2250, negative 1195 mL since coming to the hospital Continue with Incruse as well as nebulized formoterol and budesonide while in the hospital On discharge would recommend either Trelegy 100 or BrezTri Continue with diuretics to keep the patient negative balance O2 supplementation to keep oxygen saturation between 90-92% Complete the course of antibiotics for total of 7 days from pulmonary perspective Patient is not able to tolerate BiPAP, okay to discontinue Continue with incentive spirometry No further recommendation from pulmonary perspective, will sign off Please call directly with any questions Please note the above document was generated using voice recognition software. It may contain grammatical, syntax or spelling errors.Any formal questions or concerns about the content, text or information contained within the body of this dictation should be directly addressed to the provider for clarification. Subjective "I feel like I am doing better and was even off oxygen yesterday." Patient continued with diuresis in last 24hrs and is negative 1616ml in last 24hrs. Patient was on 6L nasal cannula this am with SpO2 95% and oxygen weaned down to 4L. Reportedly the patient was on room air yesterday and tolerating well. Potassium replaced this am. Review of Systems 2 Review of Systems: All systems reviewed & are unremarkable except as noted in HPI & below Physical Exam 2 Physical Exam: VITALS: Reviewed. WEIGHT/BMI reviewed. GEN: Stated age appearing, well-developed, NAD. PSYCH: Good Judgment. AOx3. Normal memory, mood, and affect. HEENT -Head: NC/AT; -Eyes: PERRL, EOMI. No discharge or redn ess; -Ears: External ears are normal. -Nose: Normal nares. NECK: Supple, with no masses. CV: RRR, no m/r/g. LUNGS: CTAB, no w/r/c. Chest rise symmetrical. Breathing nonlabored. ABD: Soft, NT/ND, NBS, no masses or organomegaly. : N/A SKIN: Warm, well perfused. No skin rashes or abnormal lesions. MSK: No deformities, Normal gait. EXT: No clubbing, cyanosis, or edema. NEURO: Normal muscle strength and tone. No focal deficits. Skin: no rashes, warm and dry Lymphatic: no cervical or axillary lymphadenopathy Results & Data Results & Data Vital Signs (Past 12 Hours) Vital Signs Temp Pulse Pulse Pulse Resp BP Pulse Ox 02/21/25 07:43 02/21/25 07:04 88 18 92 02/21/25 02:33 36.5 C 86 18 123/72 95 02/21/25 00:00 80 02/20/25 22:54 36.5 C 75 18 104/60 93 02/20/25 22:30 O2 Del Method O2 Flow Rate 02/21/25 07:43 High Flow Nasal Cannula 7 02/21/25 07:04 Nasal Cannula 6 02/21/25 02:33 Nasal Cannula 02/21/25 00:00 02/20/25 22:54 Nasal Cannula 02/20/25 22:30 High Flow Nasal Cannula 7 Laboratory Results 02/21/25 06:54 Abnormal Lab Results 02/20/25 02/20/25 02/20/25 11:06 16:28 20:08 WBC RBC Hgb Hct MCV MCH MCHC RDW Std Deviation RDW Coeff of Jean Plt Count MPV Immature Gran % (Auto) Neut % (Auto) Lymph % (Auto) [place] % (Auto) Eos % (Auto) Baso % (Auto) Neut # (Auto) Lymph # (Auto) [place] # (Auto) Eos # (Auto) Baso # (Auto) Immature Gran # (Auto) POC Glucose 124 H 113 H 110 H 02/21/25 02/21/25 06:54 07:25 WBC 8.43 RBC 3.33 L Hgb 9.6 L Hct 29.9 L MCV 89.8 MCH 28.8 MCHC 32.1 RDW Std Deviation 45.8 RDW Coeff of Jean 14.2 Plt Count 493 H MPV 9.6 Immature Gran % (Auto) 1.2 Neut % (Auto) 76.3 Lymph % (Auto) 10.1 [place] % (Auto) 10.0 Eos % (Auto) 1.7 Baso % (Auto) 0.7 Neut # (Auto) 6.44 Lymph # (Auto) 0.85 L [place] # (Auto) 0.84 H Eos # (Auto) 0.14 Baso # (Auto) 0.06 Immature Gran # (Auto) 0.10 POC Glucose 112 H Diagnostic Findings No recent imaging. PG Care Time/CCT Total # of Minutes Spent Total Time Spent with Patient: Total time spent is greater than 50% in coordination of care (as documented) at patient's floor/unit and/or counseling patient: Coding Level of Care Code 09909 SUB INP/OBS CARE 2/35MIN Diagnoses Pulmonary edema J81.1 Acute hypoxic respiratory failure J96.01 COPD with emphysema J43.9 Pleural effusion J90
[2025-02-21] MEDS: POTASSIUM CHLORIDE CRTAB 20 MEQ TABCR PO STA (09:53)
--- NOTE | 2025-02-21 16:20 | Hospitalist Progress Note ---
Date of Service February 21, 2025 Assessment & Plan (1) Septic shock: Plan: (1) Septic shock: Septic shock E. coli bacteremia Possible right lower lobe pneumonia Presented with fever, diarrhea and some confusion Currently mental status back to baseline, pt is alert and oriented CT chest and CT abdomen pelvis reviewed - no acute findings Respiratory BioFire negative urine culture: Negative Blood cultures: E. coli patient received IV pressors at the ICU Received cefepime, ceftriaxone, currently on Zosyn for treatment of concurrent pneumonia 02/20 Hemodynamically stable so far ID consulted for antibiotic management Acute Hypoxic Respiratory Failure Volume overload Takotsubo cardiomyopathy was on 10 L of Oxygen via nasal cannula -- CT chest showing moderate to large b/l pleural effusions Possible right lower lobe consolidation- pneumonia 02/20 Patient initially required high flow O2, and was diuresed with IV Lasix Patient responding well, currently down to 2 L of O2 via nasal cannula Pulmonology service consulted Perforomist and Pulmicort, Teri Pandata ordered Appreciate pulmonology service recommendation awaiting further recommendations for antibiotic regimen from ID 02/21 Oxygen requirement unsteady. Pt looks comfortable, denies any shortness of breath. She does not really ambulate - as she has hx of left AKA, uses wheelchair NonST elevated MD Initial EKG showed ST elevations in lateral leads but repeat EKG no acute ST elevations Initially had chest pain but that got resolved Troponin elevated at 1395 and repeat 4679 and next level was 3536 Could be ACS versus demand ischemia from septic shock ER talked with interventional cardiology and no intervention planned at this time Held home Xarelto and started on IV heparin 02/17 Buttonhole Maker consulted troponin trended down (+) Takotsubo cardiomyopathy monitor closely Melena resolved Hg stable at ~10 heparin drip transitioned to usual Xarelto Protonix IV BID monitor closely Hyponatremia Sodium 137 History of CAD status post stent Status post stenting of the circumflex obtuse marginal artery in 2004 Nonobstructive CAD on cardiac catheterization January 2023 Continue aspirin and statin Holding Imdur History of peripheral vascular disease Status post left AKA in 2015 Bilateral iliac artery stenting in October 2016 Right axillary to femoral and femoral posterior tibial bypass in June 2019 Continue aspirin and statin Follow-up with vascular surgery Infrarenal abdominal aortic aneurysm Status post prior embolization in June 2021 CAT scan today shows 5.8X 7.1 cm aneurysm Mild fusiform dilatation of ascending thoracic aorta 4 cm Needs close follow-up with vascular surgery History of iron deficiency anemia Received one unit prbc and IV Venofer last admission On iron pills Hemoglobin- stable pvera; Diarrhea resolved T12 compression fracture Pain control Nocturnal hypoxia Uses 2 L at bedtime History of alcohol use no signs of alcohol withdrawal DVT prophylaxis Xarelto Disposition pending lives at home wheelchair bound OT eval possible d/c in 1-2 days CODE STATUS Full code Admission and Anticipated Discharge Date Admission Date: February 14, 2025 Subjective Pt seen in follow up of sepsis, E.coli bacteremia, hypoxia Currently lying in bed in NAD, on suppl. O2 via NC She reports feeling well overall Currently on zosyn for poss. pna, and confirmed bacteremia. ID consulted as well and discussed with Pt currently denies any fever, chills, chest pain, shortness of breath, or abd. pain Review of Systems Review of Systems: All systems reviewed & are unremarkable except as noted in Subjective Physical Exam Physical Exam: General- oriented x 3, not in distress, speaks in sentences with no effort or accessory muscle use Eyes- anicteric Neck- no JVD Lungs- mild rales at the bases, no wheezing Heart- normal rate, regular rhythm; no murmurs Abdomen- normal bowel sounds, nondistended, soft, nontender Extremities- no pretibial edema, no calf tenderness, + Left AKA Neuro- alert, oriented x 3; no gross focal neurologic deficits Skin- warm & dry Results & Data Results & Data Vital Signs (Past 12 Hours) Vital Signs Temp Pulse Pulse Pulse Resp BP BP 02/21/25 14:53 89 02/21/25 11:21 36.7 C 73 20 122/69 02/21/25 08:00 90 02/21/25 07:44 36.5 C 74 18 124/61 02/21/25 07:43 02/21/25 07:04 88 18 Pulse Ox O2 Del Method O2 Flow Rate 02/21/25 14:53 02/21/25 11:21 93 Nasal Cannula 6.0 02/21/25 08:00 02/21/25 07:44 94 Nasal Cannula 6.0 02/21/25 07:43 High Flow Nasal Cannula 7 02/21/25 07:04 92 Nasal Cannula 6 Laboratory Results 02/21/25 02/21/25 02/21/25 Range/Units 11:23 07:25 06:54 WBC 8.43 (4.8-10.8) K/ul RBC 3.33 L (4.20-5.40) M/uL Hgb 9.6 L (12.0-16.0) g/dl Hct 29.9 L (37.0-47.0) % MCV 89.8 (80.0-100.0) fL MCH 28.8 (25.0-34.0) pg MCHC 32.1 (32.0-36.0) g/dL RDW Std Deviation 45.8 (36.4-46.3) fL RDW Coeff of Jean 14.2 (11.5-14.5) % Plt Count 493 H (130-400) K/uL MPV 9.6 (9.4-12.4) fL Immature Gran % (Auto) 1.2 % Neut % (Auto) 76.3 % Lymph % (Auto) 10.1 % [place] % (Auto) 10.0 % Eos % (Auto) 1.7 % Baso % (Auto) 0.7 % Neut # (Auto) 6.44 (1.40-6.50) K/uL Lymph # (Auto) 0.85 L (1.20-3.40) K/uL [place] # (Auto) 0.84 H (0.11-0.59) K/uL Eos # (Auto) 0.14 (0.00-0.50) K/uL Baso # (Auto) 0.06 (0.00-0.20) K/uL Immature Gran # (Auto) 0.10 (0.01-0.20) K/uL Sodium 137 (136-145) mmol/L Potassium 3.4 L (3.5-5.1) mmol/L Chloride 101 (98-107) mmol/L Carbon Dioxide 29 (21-32) mmol/L Anion Gap 7 (3-11) BUN 8 (6-23) mg/dl Creatinine 0.65 (0.6-1.2) mg/dl Est Cr Clr Drug Dosing 52.2 ml/min eGFR 87.31 BUN/Creatinine Ratio 12.3 (10-20) Glucose 110 H (70-99(Fasting)) mg/dl POC Glucose 115 H 112 H (70-99) mg/dl Calcium 8.2 L (8.6-10.3) mg/dl Phosphorus 3.6 (2.5-4.9) mg/dl Magnesium 1.7 (1.7-2.4) mg/dl Total Bilirubin 0.5 (0.2-1.0) mg/dl AST 20 (13-39) U/L ALT 19 (7-52) U/L Alkaline Phosphatase 87 (34-104) U/L Total Protein 5.8 L (6.0-8.3) gm/dl Albumin 2.6 L (3.4-5.0) gm/dl Globulin 3.2 (2.5-4.0) gm/dl Albumin/Globulin Ratio 0.8 L (0.9-2) 02/20/25 02/20/25 Range/Units 20:08 16:28 WBC (4.8-10.8) K/ul RBC (4.20-5.40) M/uL Hgb (12.0-16.0) g/dl Hct (37.0-47.0) % MCV (80.0-100.0) fL MCH (25.0-34.0) pg MCHC (32.0-36.0) g/dL RDW Std Deviation (36.4-46.3) fL RDW Coeff of Jean (11.5-14.5) % Plt Count (130-400) K/uL MPV (9.4-12.4) fL Immature Gran % (Auto) % Neut % (Auto) % Lymph % (Auto) % [place] % (Auto) % Eos % (Auto) % Baso % (Auto) % Neut # (Auto) (1.40-6.50) K/uL Lymph # (Auto) (1.20-3.40) K/uL [place] # (Auto) (0.11-0.59) K/uL Eos # (Auto) (0.00-0.50) K/uL Baso # (Auto) (0.00-0.20) K/uL Immature Gran # (Auto) (0.01-0.20) K/uL Sodium (136-145) mmol/L Potassium (3.5-5.1) mmol/L Chloride (98-107) mmol/L Carbon Dioxide (21-32) mmol/L Anion Gap (3-11) BUN (6-23) mg/dl Creatinine (0.6-1.2) mg/dl Est Cr Clr Drug Dosing ml/min eGFR BUN/Creatinine Ratio (10-20) Glucose (70-99(Fasting)) mg/dl POC Glucose 110 H 113 H (70-99) mg/dl Calcium (8.6-10.3) mg/dl Phosphorus (2.5-4.9) mg/dl Magnesium (1.7-2.4) mg/dl Total Bilirubin (0.2-1.0) mg/dl AST (13-39) U/L ALT (7-52) U/L Alkaline Phosphatase (34-104) U/L Total Protein (6.0-8.3) gm/dl Albumin (3.4-5.0) gm/dl Globulin (2.5-4.0) gm/dl Albumin/Globulin Ratio (0.9-2) Medications Administered Current Inpatient Medications Aspirin (Aspirin 81 Mg Ectab) 81 mg PO QAM [facility] Stop: 03/17/25 08:59 Last Admin: 02/21/25 09:52 Dose: 81 mg Atorvastatin Calcium (Atorvastatin 40 Mg Tab) 40 mg PO QPM [facility] Stop: 03/17/25 20:59 Last Admin: 02/20/25 20:33 Dose: 40 mg Budesonide (Budesonide 0.25 Mg/2 Ml Vial (Pulmicort)) 0.25 mg NEB BIDR [facility] Stop: 03/21/25 18:59 Last Admin: 02/21/25 07:04 Dose: 0.25 mg Cilostazol (Cilostazol 100 Mg Tab) 100 mg PO BID [facility] Stop: 03/17/25 08:59 Last Admin: 02/21/25 09:53 Dose: 100 mg Dextrose (Dextrose 50% 50 Ml Syringe) 25 - 50 ml IV UD PRN; Protocol PRN Reason: Hypoglycemia Protocol Stop: 03/17/25 00:41 Ferrous Sulfate (Ferrous Sulfate 325 Mg Tab) 325 mg PO BID17 [facility] Stop: 03/17/25 08:59 Last Admin: 02/15/25 10:10 Dose: 325 mg Formoterol Fumarate (Formoterol 20 Mcg/2 Ml Vial) 20 mcg INH BIDR [facility] Stop: 03/21/25 18:59 Last Admin: 02/21/25 07:04 Dose: 20 mcg Furosemide (Furosemide 40 Mg/4 Ml Vial) 40 mg IV BID17 [facility] Stop: 03/19/25 08:59 Last Admin: 02/21/25 09:53 Dose: 40 mg Glucagon (Glucagon For Inj 1 Mg Vial) 1 mg SQ UD PRN; Protocol PRN Reason: Hypoglycemia Protocol Stop: 03/17/25 00:41 Glucose (Glucose 40% Gel 15 Gm Tube) 15 - 30 gm PO UD PRN; Protocol PRN Reason: Hypoglycemia Protocol Stop: 03/17/25 00:41 Glucose (Glucose 10 Tab/Tube) 4 - 8 tab PO UD PRN; Protocol PRN Reason: Hypoglycemia Protocol Stop: 03/17/25 00:41 Pantoprazole Sodium (Protonix) 40 mg in 10 mls @ 5 mls/min IV BID [facility] Stop: 03/17/25 20:59 Last Admin: 02/21/25 09:53 Dose: 5 mls/min Piperacillin Sod/Tazobactam Sod (Zosyn) 4.5 gm in 100 mls @ 25 mls/hr IV Q8H [facility]; Protocol Stop: 02/25/25 21:59 Last Admin: 02/21/25 14:59 Dose: 25 mls/hr Lactobacillus Acidophilus (Advanced Probiotic 625 Mg Capsule) 1,250 mg PO DAILY [facility] Stop: 03/17/25 08:59 Last Admin: 02/21/25 09:53 Dose: 1,250 mg Lidocaine (Lidocaine 5% 1 Patch) 1 patch TD DAILY [facility] Stop: 03/17/25 08:59 Last Admin: 02/21/25 09:53 Dose: 1 patch Melatonin (Melatonin 3 Mg Tab) 3 mg PO HS PRN PRN Reason: Sleep Stop: 03/22/25 00:52 Last Admin: 02/20/25 20:34 Dose: 3 mg Metoprolol Tartrate (Metoprolol Tartrate 25 Mg Tab) 25 mg PO BID [facility] Stop: 03/19/25 20:59 Last Admin: 02/21/25 09:53 Dose: 25 mg Miscellaneous (Carbohydrates For Hypoglycemia ) 15 - 30 gm PO UD PRN PRN Reason: Hypoglycemia Protocol Stop: 03/17/25 00:41 Multivitamins (Multivitamin Tab) 1 tab PO QAM [facility] Stop: 03/17/25 08:59 Last Admin: 02/21/25 09:54 Dose: 1 tab Ondansetron HCl (Ondansetron Inj 2 Mg/Ml 2 Ml Vial) 4 mg IV Q6H PRN PRN Reason: Nausea And Vomiting Stop: 03/19/25 10:08 Rivaroxaban (Rivaroxaban 20 Mg Tab) 20 mg PO HS [facility] Stop: 03/18/25 20:59 Last Admin: 02/20/25 20:33 Dose: 20 mg Tramadol HCl (Tramadol Hcl 50 Mg Tablet) 50 mg PO Q6H PRN PRN Reason: Pain Stop: 03/17/25 12:30 Last Admin: 02/20/25 20:33 Dose: 50 mg Umeclidinium [place] (Umeclidinium [place] 62.5mcg/Blister 7 Puffs/Inhaler) 1 puffs INH DAILY [facility] Stop: 03/21/25 15:29 Last Admin: 02/21/25 09:53 Dose: 1 puffs
[2025-02-22 07:23] LABS: Hematocrit (blood only) 29.4 % (37.0-47.0); Hemoglobin 9.8 g/dl (12.0-16.0); Immature Granulocytes # (auto) 0.06 K/uL (0.01-0.20); Immature Granulocytes % (auto) 0.7 %; Mean Corpuscular Hemoglobin 29.5 pg (25.0-34.0); Mean Corpuscular Volume 88.6 fL (80.0-100.0); Platelet Count 476 K/uL (130-400); RDW Standard Deviation 45.4 fL (36.4-46.3); Red Blood Count 3.32 M/uL (4.20-5.40); White Blood Count 8.10 K/ul (4.8-10.8)
[2025-02-22 07:39] LABS: Alanine Aminotransferase 16.0 U/L (7-52); Albumin Globulin Ratio 0.8 (0.9-2); Alkaline Phosphatase 84.0 U/L (34-104); Anion Gap 7.0 (3-11); Bilirubin,Total 0.5 mg/dl (0.2-1.0); Blood Urea Nitrogen 8.0 mg/dl (6-23); Calcium 8.4 mg/dl (8.6-10.3); Carbon Dioxide 29.0 mmol/L (21-32); Chloride 100.0 mmol/L (98-107); Creatinine Clr Calc Pharmacy 48.0 ml/min; Globulin 3.2 gm/dl (2.5-4.0); Glucose 109.0 mg/dl (70-99(Fasting)); Magnesium 1.6 mg/dl (1.7-2.4); Potassium 3.4 mmol/L (3.5-5.1); Sodium 136.0 mmol/L (136-145); Total Protein 5.9 gm/dl (6.0-8.3)
--- NOTE | 2025-02-22 08:58 | Hospitalist Progress Note ---
Date of Service February 22, 2025 Assessment & Plan (1) Septic shock: Plan: (1) Septic shock: Septic shock E. coli bacteremia Possible right lower lobe pneumonia Presented with fever, diarrhea and some confusion Currently mental status back to baseline, pt is alert and oriented CT chest and CT abdomen pelvis reviewed - no acute findings Respiratory BioFire negative urine culture: Negative Blood cultures: E. coli patient received IV pressors at the ICU Received cefepime, ceftriaxone, currently on Zosyn for treatment of concurrent pneumonia 02/20 Hemodynamically stable so far ID consulted for antibiotic management Acute Hypoxic Respiratory Failure Volume overload Takotsubo cardiomyopathy was on 10 L of Oxygen via nasal cannula -- CT chest showing moderate to large b/l pleural effusions Possible right lower lobe consolidation- pneumonia 02/20 Patient initially required high flow O2, and was diuresed with IV Lasix Patient responding well, currently down to 2 L of O2 via nasal cannula Pulmonology service consulted Perforomist and Pulmicort, Teri Ellipta ordered Appreciate pulmonology service recommendation awaiting further recommendations for antibiotic regimen from ID 02/21 Oxygen requirement unsteady. Pt looks comfortable, denies any shortness of breath. She does not really ambulate - as she has hx of left AKA, uses wheelchair Discussed w/ pulm. - cont. diuresis as hypoxia 2/2 pl. effusions NonST elevated [place] Initial EKG showed ST elevations in lateral leads but repeat EKG no acute ST elevations Initially had chest pain but that got resolved Troponin elevated at 1395 and repeat 4679 and next level was 3536 Could be ACS versus demand ischemia from septic shock ER talked with interventional cardiology and no intervention planned at this time Held home Xarelto and started on IV heparin 02/17 Limnology Teacher consulted troponin trended down (+) Takotsubo cardiomyopathy monitor closely Melena resolved Hg stable at ~10 heparin drip transitioned to usual Xarelto Protonix IV BID monitor closely Hyponatremia Sodium 137 History of CAD status post stent Status post stenting of the circumflex obtuse marginal artery in 2004 Nonobstructive CAD on cardiac catheterization January 2023 Continue aspirin and statin Holding Imdur History of peripheral vascular disease Status post left AKA in 2015 Bilateral iliac artery stenting in October 2016 Right axillary to femoral and femoral posterior tibial bypass in June 2019 Continue aspirin and statin Follow-up with vascular surgery Infrarenal abdominal aortic aneurysm Status post prior embolization in June 2021 CAT scan today shows 5.8X 7.1 cm aneurysm Mild fusiform dilatation of ascending thoracic aorta 4 cm Needs close follow-up with vascular surgery History of iron deficiency anemia Received one unit prbc and IV Venofer last admission On iron pills Hemoglobin- stable pvera; Diarrhea resolved T12 compression fracture Pain control Nocturnal hypoxia Uses 2 L at bedtime History of alcohol use no signs of alcohol withdrawal DVT prophylaxis Xarelto Disposition pending lives at home wheelchair bound OT eval possible d/c in 1-2 days CODE STATUS Full code Admission and Anticipated Discharge Date Admission Date: February 14, 2025 Subjective Pt seen in follow up of sepsis, E.coli bacteremia, hypoxia Currently lying in bed in NAD, on suppl. O2 via NC 4L She reports feeling well overall Currently on zosyn for poss. pna, and confirmed bacteremia. ID consulted as well and discussed with Pt currently denies any fever, chills, chest pain, shortness of breath, or abd. pain Discussed w/ pulm. yesterday - cont. diuresis for hypoxia Review of Systems Review of Systems: All systems reviewed & are unremarkable except as noted in Subjective Physical Exam Physical Exam: General- oriented x 3, not in distress, speaks in sentences with no effort or accessory muscle use Eyes- anicteric Neck- no JVD Lungs- mild rales at the bases, no wheezing Heart- normal rate, regular rhythm; no murmurs Abdomen- normal bowel sounds, nondistended, soft, nontender Extremities- no pretibial edema, no calf tenderness, + Left AKA Neuro- alert, oriented x 3; no gross focal neurologic deficits Skin- warm & dry Results & Data Results & Data Vital Signs (Past 12 Hours) Vital Signs Temp Pulse Pulse Pulse Resp BP Pulse Ox 02/22/25 08:35 84 130/85 02/22/25 07:32 36.4 C L 77 18 127/73 92 02/22/25 06:58 78 18 91 02/22/25 04:54 86 02/22/25 03:13 36.5 C 77 18 123/66 93 02/21/25 22:35 36.6 C 70 16 129/72 93 02/21/25 21:49 O2 Del Method O2 Flow Rate 02/22/25 08:35 02/22/25 07:32 Nasal Cannula 4.0 02/22/25 06:58 Nasal Cannula 4 02/22/25 04:54 02/22/25 03:13 Nasal Cannula 02/21/25 22:35 Nasal Cannula 02/21/25 21:49 Nasal Cannula 2 Laboratory Results 02/22/25 02/22/25 02/21/25 Range/Units 07:35 06:39 20:05 WBC 8.10 (4.8-10.8) K/ul RBC 3.32 L (4.20-5.40) M/uL Hgb 9.8 L (12.0-16.0) g/dl Hct 29.4 L (37.0-47.0) % MCV 88.6 (80.0-100.0) fL MCH 29.5 (25.0-34.0) pg MCHC 33.3 (32.0-36.0) g/dL RDW Std Deviation 45.4 (36.4-46.3) fL RDW Coeff of Jean 14.2 (11.5-14.5) % Plt Count 476 H (130-400) K/uL MPV 9.4 (9.4-12.4) fL Immature Gran % (Auto) 0.7 % Neut % (Auto) 74.7 % Lymph % (Auto) 12.1 % [place] % (Auto) 9.9 % Eos % (Auto) 2.0 % Baso % (Auto) 0.6 % Neut # (Auto) 6.05 (1.40-6.50) K/uL Lymph # (Auto) 0.98 L (1.20-3.40) K/uL [place] # (Auto) 0.80 H (0.11-0.59) K/uL Eos # (Auto) 0.16 (0.00-0.50) K/uL Baso # (Auto) 0.05 (0.00-0.20) K/uL Immature Gran # (Auto) 0.06 (0.01-0.20) K/uL Sodium 136 (136-145) mmol/L Potassium 3.4 L (3.5-5.1) mmol/L Chloride 100 (98-107) mmol/L Carbon Dioxide 29 (21-32) mmol/L Anion Gap 7 (3-11) BUN 8 (6-23) mg/dl Creatinine 0.72 (0.6-1.2) mg/dl Est Cr Clr Drug Dosing 48.0 ml/min eGFR 82.91 BUN/Creatinine Ratio 11.1 (10-20) Glucose 109 H (70-99(Fasting)) mg/dl POC Glucose 121 H 150 H (70-99) mg/dl Calcium 8.4 L (8.6-10.3) mg/dl Phosphorus 3.3 (2.5-4.9) mg/dl Magnesium 1.6 L (1.7-2.4) mg/dl Total Bilirubin 0.5 (0.2-1.0) mg/dl AST 18 (13-39) U/L ALT 16 (7-52) U/L Alkaline Phosphatase 84 (34-104) U/L Total Protein 5.9 L (6.0-8.3) gm/dl Albumin 2.7 L (3.4-5.0) gm/dl Globulin 3.2 (2.5-4.0) gm/dl Albumin/Globulin Ratio 0.8 L (0.9-2) 02/21/25 02/21/25 Range/Units 16:21 11:23 WBC (4.8-10.8) K/ul RBC (4.20-5.40) M/uL Hgb (12.0-16.0) g/dl Hct (37.0-47.0) % MCV (80.0-100.0) fL MCH (25.0-34.0) pg MCHC (32.0-36.0) g/dL RDW Std Deviation (36.4-46.3) fL RDW Coeff of Jean (11.5-14.5) % Plt Count (130-400) K/uL MPV (9.4-12.4) fL Immature Gran % (Auto) % Neut % (Auto) % Lymph % (Auto) % [place] % (Auto) % Eos % (Auto) % Baso % (Auto) % Neut # (Auto) (1.40-6.50) K/uL Lymph # (Auto) (1.20-3.40) K/uL [place] # (Auto) (0.11-0.59) K/uL Eos # (Auto) (0.00-0.50) K/uL Baso # (Auto) (0.00-0.20) K/uL Immature Gran # (Auto) (0.01-0.20) K/uL Sodium (136-145) mmol/L Potassium (3.5-5.1) mmol/L Chloride (98-107) mmol/L Carbon Dioxide (21-32) mmol/L Anion Gap (3-11) BUN (6-23) mg/dl Creatinine (0.6-1.2) mg/dl Est Cr Clr Drug Dosing ml/min eGFR BUN/Creatinine Ratio (10-20) Glucose (70-99(Fasting)) mg/dl POC Glucose 133 H 115 H (70-99) mg/dl Calcium (8.6-10.3) mg/dl Phosphorus (2.5-4.9) mg/dl Magnesium (1.7-2.4) mg/dl Total Bilirubin (0.2-1.0) mg/dl AST (13-39) U/L ALT (7-52) U/L Alkaline Phosphatase (34-104) U/L Total Protein (6.0-8.3) gm/dl Albumin (3.4-5.0) gm/dl Globulin (2.5-4.0) gm/dl Albumin/Globulin Ratio (0.9-2) Medications Administered Current Inpatient Medications Aspirin (Aspirin 81 Mg Ectab) 81 mg PO QAM [facility] Stop: 03/17/25 08:59 Last Admin: 02/22/25 08:31 Dose: 81 mg Atorvastatin Calcium (Atorvastatin 40 Mg Tab) 40 mg PO QPM [facility] Stop: 03/17/25 20:59 Last Admin: 02/21/25 20:18 Dose: 40 mg Budesonide (Budesonide 0.25 Mg/2 Ml Vial (Pulmicort)) 0.25 mg NEB BIDR [facility] Stop: 03/21/25 18:59 Last Admin: 02/22/25 06:56 Dose: 0.25 mg Cilostazol (Cilostazol 100 Mg Tab) 100 mg PO BID [facility] Stop: 03/17/25 08:59 Last Admin: 02/22/25 08:30 Dose: 100 mg Dextrose (Dextrose 50% 50 Ml Syringe) 25 - 50 ml IV UD PRN; Protocol PRN Reason: Hypoglycemia Protocol Stop: 03/17/25 00:41 Ferrous Sulfate (Ferrous Sulfate 325 Mg Tab) 325 mg PO BID17 [facility] Stop: 03/17/25 08:59 Last Admin: 02/15/25 10:10 Dose: 325 mg Formoterol Fumarate (Formoterol 20 Mcg/2 Ml Vial) 20 mcg INH BIDR [facility] Stop: 03/21/25 18:59 Last Admin: 02/22/25 07:16 Dose: 20 mcg Furosemide (Furosemide 40 Mg/4 Ml Vial) 40 mg IV BID17 [facility] Stop: 03/19/25 08:59 Last Admin: 02/22/25 08:43 Dose: 40 mg Glucagon (Glucagon For Inj 1 Mg Vial) 1 mg SQ UD PRN; Protocol PRN Reason: Hypoglycemia Protocol Stop: 03/17/25 00:41 Glucose (Glucose 40% Gel 15 Gm Tube) 15 - 30 gm PO UD PRN; Protocol PRN Reason: Hypoglycemia Protocol Stop: 03/17/25 00:41 Glucose (Glucose 10 Tab/Tube) 4 - 8 tab PO UD PRN; Protocol PRN Reason: Hypoglycemia Protocol Stop: 03/17/25 00:41 Pantoprazole Sodium (Protonix) 40 mg in 10 mls @ 5 mls/min IV BID [facility] Stop: 03/17/25 20:59 Last Admin: 02/22/25 08:31 Dose: 5 mls/min Piperacillin Sod/Tazobactam Sod (Zosyn) 4.5 gm in 100 mls @ 25 mls/hr IV Q8H [facility]; Protocol Stop: 02/25/25 21:59 Last Admin: 02/22/25 05:49 Dose: 25 mls/hr Lactobacillus Acidophilus (Advanced Probiotic 625 Mg Capsule) 1,250 mg PO DAILY [facility] Stop: 03/17/25 08:59 Last Admin: 02/22/25 08:30 Dose: 1,250 mg Lidocaine (Lidocaine 5% 1 Patch) 1 patch TD DAILY [facility] Stop: 03/17/25 08:59 Last Admin: 02/22/25 08:31 Dose: 1 patch Melatonin (Melatonin 3 Mg Tab) 3 mg PO HS PRN PRN Reason: Sleep Stop: 03/22/25 00:52 Last Admin: 02/21/25 20:17 Dose: 3 mg Metoprolol Tartrate (Metoprolol Tartrate 25 Mg Tab) 25 mg PO BID [facility] Stop: 03/19/25 20:59 Last Admin: 02/22/25 08:30 Dose: 25 mg Miscellaneous (Carbohydrates For Hypoglycemia ) 15 - 30 gm PO UD PRN PRN Reason: Hypoglycemia Protocol Stop: 03/17/25 00:41 Multivitamins (Multivitamin Tab) 1 tab PO QAM [facility] Stop: 03/17/25 08:59 Last Admin: 02/22/25 08:30 Dose: 1 tab Ondansetron HCl (Ondansetron Inj 2 Mg/Ml 2 Ml Vial) 4 mg IV Q6H PRN PRN Reason: Nausea And Vomiting Stop: 03/19/25 10:08 Rivaroxaban (Rivaroxaban 20 Mg Tab) 20 mg PO HS [facility] Stop: 03/18/25 20:59 Last Admin: 02/21/25 20:18 Dose: 20 mg Tramadol HCl (Tramadol Hcl 50 Mg Tablet) 50 mg PO Q6H PRN PRN Reason: Pain Stop: 03/17/25 12:30 Last Admin: 02/21/25 20:17 Dose: 50 mg Umeclidinium [place] (Umeclidinium [place] 62.5mcg/Blister 7 Puffs/Inhaler) 1 puffs INH DAILY [facility] Stop: 03/21/25 15:29 Last Admin: 02/22/25 08:31 Dose: 1 puffs
[2025-02-22] MEDS: POTASSIUM CHLORIDE CRTAB 20 MEQ TABCR PO STA (11:34)
[2025-02-22] MEDS: POTASSIUM CHLORIDE CRTAB 20 MEQ TABCR PO ONE (14:29)
--- NOTE | 2025-02-22 15:30 | Infectious Disease Consult ---
Date of Service February 22, 2025 Telehealth Information I performed this visit using a real-time telehealth connection between my location and the patients location ([facility]). After connecting through interactive tele-video, patient was identified by name and date of and/or wristband check.Patient (or authorized healthcare territory account representative) was informed that this was a telemedicine visit and it was being conducted confidentially over secure lines. My office door was closed and no o ne else was present in the room with me.Patient (or authorized healthcare territory account representative) provided consent to proceed with the visit, expressed an understanding of privacy and security of the telemedicine visit, and gave permission to have a hospital territory account representative in the room in order to assist with the visit and to conduct portions of the visit, as needed. I informed the patient (or authorized healthcare territory account representative) that I reviewed their record and presented the opportunity for them to ask any questions regarding the visit today. The patient agreed to participate. Assessment & Plan (1) Shock: (2) E coli bacteremia: (3) Bacterial pneumonia: (4) Acute hypoxic respiratory failure: (5) COPD with emphysema: (6) Takotsubo cardiomyopathy: Plan Regarding the E coli bacteremia with unknown potential source, I would recommend treating for a total duration of 14 days which includes the days of IV ceftriax one and IV piperacillin tazobactam with anticipated end date of February 28, 2025. Continue on IV piperacillin tazobactam while inpatient; on discharge, step-down to oral Bactrim double-strength twice daily to complete the course of treatment. As for the presumed pneumonia, it could simply be aspiration given the location. By today she would have completed 5 days of appropriate treatment. If she has to stay in the hospital for 2 or more days, can continue on piperacillin tazobactam to complete a total of 7 days and then step-down to oral Bactrim. However, if there is a plan to discharge her before completing the 7 days, piperacillin tazobactam can be stopped on discharge and she can go home on Bactrim as suggested above. Thank you for consulting infectious disease. We will sign off for now. History of Present Illness History of Present Illness Ms. Florian is a 84-year-old woman with multiple comorbidities including HTN, CAD status post stenting, peripheral vascular disease with claudication, prediabetes, dyslipidemia, and COPD who was admitted to [facility] on 02/14/2025 with shock and acute hypoxic respiratory failure. The shock at that time was suspected to have 2 elements, septic shock especially with high burden E coli bacteremia and cardiogenic shock in the context of non-STEMI and takotsubo cardiomyopathy. There was no clear source for the E coli bacteremia especially that the CAT scan of the abdomen and pelvis was benign and the urine culture was negative. Of note, the patient was recently admitted to the hospital from 01/30 to 02/05 because of culp colitis and acute diarrheal illness. At that time, she was treated with antibiotics while inpatient and sent out in stable condition without any antibiotics. During the current hospitalization, she was successfully weaned off pressors and oxygen while on antibiotics (ceftriaxone). Around 02/17, she was transferred to the regular floor but at the same time, she started requiring more oxygen and a CT of the chest was repeated on 02/18 which demonstrated moderate to large bilateral pleural effusions with right lower lobe airspace consolidation suggestive of pneumonia. At that time, ceftriaxone was shifted to piperacillin tazobactam which she has been on since then. ID team was consulted for further recommendations and to help guide antibiotic treatment. Allergies Allergy/AdvReac Type Severity Reaction Status Date / Time diphenhydramine AdvReac Intermediate heart Verified 01/04/25 10:36 racing Home Medications Medication Instructions Recorded Confirmed Type atorvastatin 40 mg tablet (Lipitor) 40 mg PO QPM 03/24/18 02/14/25 History metoprolol tartrate 50 mg tablet 50 mg PO BID 03/24/18 02/14/25 History (Lopressor) multivitamin 1 tab PO QAM 03/24/18 02/14/25 History furosemide 40 mg tablet (Lasix) 40 mg PO BID 08/06/19 02/14/25 History aspirin 81 mg tablet,delayed 81 mg PO QAM #0 tabs 08/07/19 02/14/25 Rx release rivaroxaban 20 mg tablet (Xarelto) 20 mg PO HS #0 tabs 08/07/19 02/14/25 Rx cilostazol 100 mg tablet 100 mg PO BID 03/06/20 02/14/25 History omega 3-lsy-mze-fish oil 300 1 cap PO QAM 02/20/23 02/14/25 History mg-1,000 mg capsule (Fish Oil) isosorbide mononitrate 30 mg 30 mg PO QAM #30 tabs 02/22/23 02/14/25 Rx tablet,extended release 24 hr calcium carbonate (Calcium 600) 600 mg PO DAILY 07/14/23 02/14/25 History nitroglycerin 0.4 mg sublingual 0.4 mg sublingual Q5M PRN Chest 07/12/24 02/14/25 Rx tablet (Nitrostat) Pain #20 tabs potassium chloride 20 mEq 20 meq PO AMHS 01/30/25 02/14/25 History tablet,extended release L.acidop,casei,lactis,rham-B.lact,brandon 10 cap PO DAILY #10 caps 02/05/25 02/14/25 Rx 625 mg (10 billion cell) capsule (Advanced Probiotic) ferrous sulfate 325 mg (65 mg 325 mg PO BID #60 tabs 02/05/25 02/14/25 Rx iron) tablet,delayed release lidocaine 4 % topical patch 1 patch topical DAILY 10 days #10 02/05/25 02/14/25 Rx ea tramadol 50 mg tablet 50 mg PO Q6 PRN Pain, Moderate 02/14/25 02/14/25 History Patient History Medical History Prediabetes Wheelchair dependence History of recent hospitalization 01/2023 [facility] - chest pain On home O2 qHS On anticoagulant therapy Lower GI bleed HISTORY OF FROM HEMORRHOID Peripheral vascular disease Osteoarthritis Hypertension controlled, stable per pt Hyperlipidemia Surgical History S/P insertion of iliac artery stent History of cardiac cath 02/22/23 - [facility] - CP - no stents. History of esophagogastroduodenoscopy (EGD) History of incision and drainage left inner thigh 02/08/2020: LMA#4 atraumatic x 1. No issues per anesthesia postop progress note. 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-DOES NOT WEAR PROSTHESIS History of appendectomy History of bilateral tubal ligation H/O breast surgery X 2-BENIGN LUMPECTOMY Previous back surgery BONE SPUR REMOVED Family History Son Family history of diabetes mellitus Other No family history of adverse response to anesthesia Social History Smoking Status: Former smoker Tobacco Type: Cigarettes Smoking End Date: 20 years ago; Second Hand Exposure: No; Do You Dip or Chew Tobacco: No; Hx Alcohol Use: Yes Alcohol type: beer Hx Substance Use: No Preferred Language: Sinhala Communication Ability: Effective 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 Physical Exam Could not be performed given that the encounter was conducted via TeleMed. Results & Data Vital Signs (Past 12 Hours) Vital Signs Temp Pulse Pulse Pulse Resp BP Pulse Ox 02/22/25 14:08 85 02/22/25 13:57 92 02/22/25 13:32 91 02/22/25 11:30 36.6 C 76 17 121/78 94 02/22/25 08:35 84 130/85 02/22/25 08:00 86 02/22/25 08:00 02/22/25 07:32 36.4 C L 77 18 127/73 92 02/22/25 06:58 78 18 91 02/22/25 04:54 86 O2 Del Method O2 Flow Rate 02/22/25 14:08 02/22/25 13:57 Nasal Cannula 4 02/22/25 13:32 Nasal Cannula 1 02/22/25 11:30 Nasal Cannula 4.0 02/22/25 08:35 02/22/25 08:00 02/22/25 08:00 Nasal Cannula 4 02/22/25 07:32 Nasal Cannula 4.0 02/22/25 06:58 Nasal Cannula 4 02/22/25 04:54 Laboratory Results Microbiology: 02/14: 4/4 bottles of blood culture growing E coli 02/14: Urine culture with no growth 02/18: 2 sets of blood culture negative to date Diagnostic Findings Imaging: CT chest on 02/18: 1. Moderate to large large bilateral pleural effusions, appearing increased in the interval, with cardiomegaly and CT features of volume overload/CHF. 2. Right lower lobe airspace consolidation favoring pneumonia. 3. Advanced emphysema and pulmonary fibrosis/interstitial lung disease.
--- NOTE | 2025-02-23 06:43 | Electrocardiogram Report ---
Test Reason : Blood Pressure : */* mmHG Vent. Rate : 110 BPM Atrial Rate : 110 BPM P-R Int : 142 ms QRS Dur : 58 ms QT Int : 348 ms P-R-T Axes : 81 13 253 degrees QTcB Int : 470 ms Sinus tachycardia with Fusion complexes Low voltage QRS T wave abnormality, consider anterolateral ischemia Abnormal ECG When compared with ECG of 15-Feb-2025 05:58, Inverted T waves have replaced nonspecific T wave abnormality in Anterior leads Confirmed by Diaz Gonzalez ([id number]) on 02/23/2025 6:43:18 AM Referred By: REFERRED SELF Confirmed By: Diaz Gonzalez
--- NOTE | 2025-02-23 07:06 | Hospitalist Progress Note ---
Date of Service February 23, 2025 Assessment & Plan (1) Septic shock: Plan: (1) Septic shock: Septic shock E. coli bacteremia Possible right lower lobe pneumonia Presented with fever, diarrhea and some confusion Currently mental status back to baseline, pt is alert and oriented CT chest and CT abdomen pelvis reviewed - no acute findings Respiratory BioFire negative urine culture: Negative Blood cultures: E. coli patient received IV pressors at the ICU Received cefepime, ceftriaxone, currently on Zosyn for treatment of concurrent pneumonia 02/20 Hemodynamically stable so far ID consulted for antibiotic management 02/22 Discussed w/ ID - plan to DC on Bactrim - treat until 02/28/2025 Acute Hypoxic Respiratory Failure Volume overload Takotsubo cardiomyopathy was on 10 L of Oxygen via nasal cannula -- CT chest showing moderate to large b/l pleural effusions Possible right lower lobe consolidation- pneumonia 02/20 Patient initially required high flow O2, and was diuresed with IV Lasix Patient responding well, currently down to 2 L of O2 via nasal cannula Pulmonology service consulted Perforomist and Pulmicort, Teri Ellipta ordered Appreciate pulmonology service recommendation awaiting further recommendations for antibiotic regimen from ID 02/21 Oxygen requirement unsteady. Pt looks comfortable, denies any shortness of breath. She does not really ambulate - as she has hx of left AKA, uses wheelchair Discussed w/ pulm. - cont. diuresis as hypoxia 2/2 pl. effusions 02/23 Oxygen requirement improving. Pt feels well. Diuresing well. 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 trended down (+) Takotsubo cardiomyopathy monitor closely Melena resolved Hg stable at ~10 heparin drip transitioned to usual Xarelto Protonix IV BID monitor closely Hyponatremia Sodium 137 History of CAD status post stent Status post stenting of the circumflex obtuse marginal artery in 2004 Nonobstructive CAD on cardiac catheterization January 2023 Continue aspirin and statin Holding Imdur History of peripheral vascular disease Status post left AKA in 2015 Bilateral iliac artery stenting in October 2016 Right axillary to femoral and femoral posterior tibial bypass in June 2019 Continue aspirin and statin Follow-up with vascular surgery Infrarenal abdominal aortic aneurysm Status post prior embolization in June 2021 CAT scan today shows 5.8X 7.1 cm aneurysm Mild fusiform dilatation of ascending thoracic aorta 4 cm Needs close follow-up with vascular surgery History of iron deficiency anemia Received one unit prbc and IV Venofer last admission On iron pills Hemoglobin- stable pvera; Diarrhea resolved T12 compression fracture Pain control Nocturnal hypoxia Uses 2 L at bedtime History of alcohol use no signs of alcohol withdrawal DVT prophylaxis Xarelto Disposition pending lives at home wheelchair bound OT eval possible d/c in 1-2 days CODE STATUS Full code Admission and Anticipated Discharge Date Admission Date: February 14, 2025 Subjective Pt seen in follow up of sepsis, E.coli bacteremia, hypoxia Currently lying in bed in NAD, on suppl. O2 via NC, hypoxia improved She reports feeling well overall, currently sitting up in wheelchair, present at the bedside Currently on zosyn for poss. pna, and confirmed bacteremia. ID consulted as well and discussed with - plan to DC Bactrim Pt currently denies any fever, chills, chest pain, shortness of breath, or abd. pain Review of Systems Review of Systems: All systems reviewed & are unremarkable except as noted in Subjective Physical Exam Physical Exam: General- oriented x 3, not in distress, speaks in sentences with no effort or accessory muscle use Eyes- anicteric Neck- no JVD Lungs- minimal rales at the bases, no wheezing Heart- normal rate, regular rhythm; no murmurs Abdomen- normal bowel sounds, nondistended, soft, nontender Extremities- no pretibial edema, no calf tenderness, + Left AKA Neuro- alert, oriented x 3; no gross focal neurologic deficits Skin- warm & dry Results & Data Results & Data Vital Signs (Past 12 Hours) Vital Signs Temp Pulse Pulse Pulse Resp BP Pulse Ox 02/23/25 03:19 36.8 C 68 18 108/61 93 02/22/25 23:34 36.8 C 70 18 110/64 95 02/22/25 23:07 85 02/22/25 20:00 02/22/25 19:28 65 18 94 O2 Del Method O2 Flow Rate 02/23/25 03:19 High Flow Nasal Cannula 2 02/22/25 23:34 High Flow Nasal Cannula 3 02/22/25 23:07 02/22/25 20:00 Nasal Cannula 3 02/22/25 19:28 Nasal Cannula 3 Laboratory Results 02/22/25 02/22/25 02/22/25 Range/Units 20:36 16:20 11:32 WBC (4.8-10.8) K/ul RBC (4.20-5.40) M/uL Hgb (12.0-16.0) g/dl Hct (37.0-47.0) % MCV (80.0-100.0) fL MCH (25.0-34.0) pg MCHC (32.0-36.0) g/dL RDW Std Deviation (36.4-46.3) fL RDW Coeff of Jean (11.5-14.5) % Plt Count (130-400) K/uL MPV (9.4-12.4) fL Immature Gran % (Auto) % Neut % (Auto) % Lymph % (Auto) % [place] % (Auto) % Eos % (Auto) % Baso % (Auto) % Neut # (Auto) (1.40-6.50) K/uL Lymph # (Auto) (1.20-3.40) K/uL [place] # (Auto) (0.11-0.59) K/uL Eos # (Auto) (0.00-0.50) K/uL Baso # (Auto) (0.00-0.20) K/uL Immature Gran # (Auto) (0.01-0.20) K/uL Sodium (136-145) mmol/L Potassium (3.5-5.1) mmol/L Chloride (98-107) mmol/L Carbon Dioxide (21-32) mmol/L Anion Gap (3-11) BUN (6-23) mg/dl Creatinine (0.6-1.2) mg/dl Est Cr Clr Drug Dosing ml/min eGFR BUN/Creatinine Ratio (10-20) Glucose (70-99(Fasting)) mg/dl POC Glucose 102 H 112 H 110 H (70-99) mg/dl Calcium (8.6-10.3) mg/dl Phosphorus (2.5-4.9) mg/dl Magnesium (1.7-2.4) mg/dl Total Bilirubin (0.2-1.0) mg/dl AST (13-39) U/L ALT (7-52) U/L Alkaline Phosphatase (34-104) U/L Total Protein (6.0-8.3) gm/dl Albumin (3.4-5.0) gm/dl Globulin (2.5-4.0) gm/dl Albumin/Globulin Ratio (0.9-2) 02/22/25 02/22/25 Range/Units 07:35 06:39 WBC 8.10 (4.8-10.8) K/ul RBC 3.32 L (4.20-5.40) M/uL Hgb 9.8 L (12.0-16.0) g/dl Hct 29.4 L (37.0-47.0) % MCV 88.6 (80.0-100.0) fL MCH 29.5 (25.0-34.0) pg MCHC 33.3 (32.0-36.0) g/dL RDW Std Deviation 45.4 (36.4-46.3) fL RDW Coeff of Jean 14.2 (11.5-14.5) % Plt Count 476 H (130-400) K/uL MPV 9.4 (9.4-12.4) fL Immature Gran % (Auto) 0.7 % Neut % (Auto) 74.7 % Lymph % (Auto) 12.1 % [place] % (Auto) 9.9 % Eos % (Auto) 2.0 % Baso % (Auto) 0.6 % Neut # (Auto) 6.05 (1.40-6.50) K/uL Lymph # (Auto) 0.98 L (1.20-3.40) K/uL [place] # (Auto) 0.80 H (0.11-0.59) K/uL Eos # (Auto) 0.16 (0.00-0.50) K/uL Baso # (Auto) 0.05 (0.00-0.20) K/uL Immature Gran # (Auto) 0.06 (0.01-0.20) K/uL Sodium 136 (136-145) mmol/L Potassium 3.4 L (3.5-5.1) mmol/L Chloride 100 (98-107) mmol/L Carbon Dioxide 29 (21-32) mmol/L Anion Gap 7 (3-11) BUN 8 (6-23) mg/dl Creatinine 0.72 (0.6-1.2) mg/dl Est Cr Clr Drug Dosing 48.0 ml/min eGFR 82.91 BUN/Creatinine Ratio 11.1 (10-20) Glucose 109 H (70-99(Fasting)) mg/dl POC Glucose 121 H (70-99) mg/dl Calcium 8.4 L (8.6-10.3) mg/dl Phosphorus 3.3 (2.5-4.9) mg/dl Magnesium 1.6 L (1.7-2.4) mg/dl Total Bilirubin 0.5 (0.2-1.0) mg/dl AST 18 (13-39) U/L ALT 16 (7-52) U/L Alkaline Phosphatase 84 (34-104) U/L Total Protein 5.9 L (6.0-8.3) gm/dl Albumin 2.7 L (3.4-5.0) gm/dl Globulin 3.2 (2.5-4.0) gm/dl Albumin/Globulin Ratio 0.8 L (0.9-2) Medications Administered Current Inpatient Medications Aspirin (Aspirin 81 Mg Ectab) 81 mg PO QAM RAYMOND Stop: 03/17/25 08:59 Last Admin: 02/22/25 08:31 Dose: 81 mg Atorvastatin Calcium (Atorvastatin 40 Mg Tab) 40 mg PO QPM RAYMOND Stop: 03/17/25 20:59 Last Admin: 02/22/25 20:15 Dose: 40 mg Budesonide (Budesonide 0.25 Mg/2 Ml Vial (Pulmicort)) 0.25 mg NEB BIDR RAYMOND Stop: 03/21/25 18:59 Last Admin: 02/22/25 19:27 Dose: 0.25 mg Cilostazol (Cilostazol 100 Mg Tab) 100 mg PO BID RAYMOND Stop: 03/17/25 08:59 Last Admin: 02/22/25 20:15 Dose: 100 mg Dextrose (Dextrose 50% 50 Ml Syringe) 25 - 50 ml IV UD PRN; Protocol PRN Reason: Hypoglycemia Protocol Stop: 03/17/25 00:41 Ferrous Sulfate (Ferrous Sulfate 325 Mg Tab) 325 mg PO [id number] RAYMOND Stop: 03/17/25 08:59 Last Admin: 02/15/25 10:10 Dose: 325 mg Formoterol Fumarate (Formoterol 20 Mcg/2 Ml Vial) 20 mcg INH BIDR RAYMOND Stop: 03/21/25 18:59 Last Admin: 02/22/25 19:28 Dose: 20 mcg Furosemide (Furosemide 40 Mg/4 Ml Vial) 40 mg IV BID17 RAYMOND Stop: 03/19/25 08:59 Last Admin: 02/22/25 16:20 Dose: 40 mg Glucagon (Glucagon For Inj 1 Mg Vial) 1 mg SQ UD PRN; Protocol PRN Reason: Hypoglycemia Protocol Stop: 03/17/25 00:41 Glucose (Glucose 40% Gel 15 Gm Tube) 15 - 30 gm PO UD PRN; Protocol PRN Reason: Hypoglycemia Protocol Stop: 03/17/25 00:41 Glucose (Glucose 10 Tab/Tube) 4 - 8 tab PO UD PRN; Protocol PRN Reason: Hypoglycemia Protocol Stop: 03/17/25 00:41 Pantoprazole Sodium (Protonix) 40 mg in 10 mls @ 5 mls/min IV BID RAYMOND Stop: 03/17/25 20:59 Last Admin: 02/22/25 20:19 Dose: 5 mls/min Piperacillin Sod/Tazobactam Sod (Zosyn) 4.5 gm in 100 mls @ 25 mls/hr IV Q8H [facility]; Protocol Stop: 02/25/25 21:59 Last Admin: 02/23/25 06:24 Dose: 25 mls/hr Lactobacillus Acidophilus (Advanced Probiotic 625 Mg Capsule) 1,250 mg PO DAILY [facility] Stop: 03/17/25 08:59 Last Admin: 02/22/25 08:30 Dose: 1,250 mg Lidocaine (Lidocaine 5% 1 Patch) 1 patch TD DAILY RAYMOND Stop: 03/17/25 08:59 Last Admin: 02/22/25 08:31 Dose: 1 patch Melatonin (Melatonin 3 Mg Tab) 3 mg PO HS PRN PRN Reason: Sleep Stop: 03/22/25 00:52 Last Admin: 02/22/25 20:15 Dose: 3 mg Metoprolol Tartrate (Metoprolol Tartrate 25 Mg Tab) 25 mg PO BID RAYMOND Stop: 03/19/25 20:59 Last Admin: 02/22/25 20:15 Dose: 25 mg Miscellaneous (Carbohydrates For Hypoglycemia ) 15 - 30 gm PO UD PRN PRN Reason: Hypoglycemia Protocol Stop: 03/17/25 00:41 Multivitamins (Multivitamin Tab) 1 tab PO QAM [facility] Stop: 03/17/25 08:59 Last Admin: 02/22/25 08:30 Dose: 1 tab Ondansetron HCl (Ondansetron Inj 2 Mg/Ml 2 Ml Vial) 4 mg IV Q6H PRN PRN Reason: Nausea And Vomiting Stop: 03/19/25 10:08 Rivaroxaban (Rivaroxaban 20 Mg Tab) 20 mg PO HS [facility] Stop: 03/18/25 20:59 Last Admin: 02/22/25 20:15 Dose: 20 mg Tramadol HCl (Tramadol Hcl 50 Mg Tablet) 50 mg PO Q6H PRN PRN Reason: Pain Stop: 03/17/25 12:30 Last Admin: 02/22/25 20:15 Dose: 50 mg Umeclidinium Upton (Umeclidinium Upton 62.5mcg/Blister 7 Puffs/Inhaler) 1 puffs INH DAILY RAYMOND Stop: 03/21/25 15:29 Last Admin: 02/22/25 08:31 Dose: 1 puffs
[2025-02-23 08:40] LABS: Hematocrit (blood only) 32.4 % (37.0-47.0); Hemoglobin 10.5 g/dl (12.0-16.0); Immature Granulocytes # (auto) 0.08 K/uL (0.01-0.20); Immature Granulocytes % (auto) 0.9 %; Mean Corpuscular Hemoglobin 29.2 pg (25.0-34.0); Mean Corpuscular Volume 90.0 fL (80.0-100.0); Platelet Count 489 K/uL (130-400); RDW Standard Deviation 46.3 fL (36.4-46.3); Red Blood Count 3.60 M/uL (4.20-5.40); White Blood Count 9.35 K/ul (4.8-10.8)
[2025-02-23 09:00] LABS: Alanine Aminotransferase 17.0 U/L (7-52); Albumin Globulin Ratio 0.8 (0.9-2); Alkaline Phosphatase 89.0 U/L (34-104); Anion Gap 7.0 (3-11); Bilirubin,Total 0.6 mg/dl (0.2-1.0); Blood Urea Nitrogen 8.0 mg/dl (6-23); Calcium 8.7 mg/dl (8.6-10.3); Carbon Dioxide 31.0 mmol/L (21-32); Chloride 97.0 mmol/L (98-107); Creatinine Clr Calc Pharmacy 43.8 ml/min; Globulin 3.6 gm/dl (2.5-4.0); Glucose 106.0 mg/dl (70-99(Fasting)); Magnesium 1.8 mg/dl (1.7-2.4); Potassium 3.9 mmol/L (3.5-5.1); Sodium 135.0 mmol/L (136-145); Total Protein 6.5 gm/dl (6.0-8.3)
[2025-02-23] MEDS: FUROSEMIDE 40 MG/4 ML VIAL IV SCH (17:26)
[2025-02-24 06:25] LABS: Hematocrit (blood only) 30.8 % (37.0-47.0); Hemoglobin 9.8 g/dl (12.0-16.0); Mean Corpuscular Hemoglobin 28.3 pg (25.0-34.0); Mean Corpuscular Volume 89.0 fL (80.0-100.0); Platelet Count 418 K/uL (130-400); RDW Standard Deviation 46.3 fL (36.4-46.3); Red Blood Count 3.46 M/uL (4.20-5.40); White Blood Count 12.18 K/ul (4.8-10.8)
[2025-02-24 06:49] LABS: Anion Gap 8.0 (3-11); Blood Urea Nitrogen 10.0 mg/dl (6-23); Calcium 8.5 mg/dl (8.6-10.3); Carbon Dioxide 29.0 mmol/L (21-32); Chloride 98.0 mmol/L (98-107); Creatinine Clr Calc Pharmacy 45.4 ml/min; Glucose 109.0 mg/dl (70-99(Fasting)); Magnesium 1.6 mg/dl (1.7-2.4); Potassium 3.1 mmol/L (3.5-5.1); Sodium 135.0 mmol/L (136-145)
[2025-02-24 07:02] VITALS: RESP 16
[2025-02-24] MEDS: POTASSIUM CHLORIDE CRTAB 20 MEQ TABCR PO STA (07:47)
[2025-02-24] MEDS: MAGNESIUM SULFATE / D5W 1 GM/100 ML BAG IV ONE (07:47)
--- NOTE | 2025-02-24 11:35 | Discharge Summary ---
Date of Service February 24, 2025 Admission HPI Per Admitting Provider 84-year-old female with past medical history significant for dyslipidemia, prediabetes, history of acute on chronic respiratory failure with hypoxia, peripheral vascular disease with claudication, carotid stenosis, iliac aneurysm, hypertension, abdominal aortic aneurysm, CAD s/p stent comes from home because of some confusion, fevers and diarrhea and found to be in severe sepsis and septic shock. Patient was recently in the hospital was admitted on 01/30/2025 and was discharged on 02/05/2025. During that admission she had severe sepsis secondary to acute diarrheal illness and nonspecific proctitis. During that admission cultures were negative. Initially was treated with Vanco and Zosyn and later was on Augmentin. During that admission she also had rectal bleeding and required 1 unit of PRBCs and also given IV Venofer for iron level less than 10. Xarelto was held but was restarted prior to discharge. She also required IV diuresis for acute CHF and she also found to have acute T12 compression fracture and was seen by orthospine and conservative management recommended. She lives at home with her . and son in the room. Patient is wheelchair-bound. She can transfer to the wheelchair. Today patient had temperature 103 degrees Fahrenheit. Had episodes of diarrhea. And confusion. Currently patient is alert and awake and oriented x 3. Was able to give her history. Earlier had chest pain but currently denies any chest pain. Denies shortness of breath. No headache. No neck pain. No runny nose or sore throat or cough. No nausea. No abdominal pain. Has chronic back pain. Micturating okay. In the ER she was tachycardic. Blood pressure was soft. She was hypoxic , 87% on room air and requiring 2 L oxygen. Even after fluid bolus her blood pressure did not improve and was started on Levophed drip by the ER. Initial lactic acid was 3.4. Repeat lactic acid 1.4. Initial troponin was 1395 and repeat was 4679 and next repeat is 3536. Initial EKG showed some ST elevation in lateral leads but repeat EKG no acute ST elevation seen. ER talked with the cardiology but no intervention planned at this time. UA came back positive. CTA chest no acute findings. Trace left pleural effusion. CT abdomen pelvis stable occlusion of large infrarenal abdominal aortic aneurysm and both common internal/external iliac arteries. And patency of right presumed axillary to common femoral artery bypass graft. Stable T12 vertebral compression fracture. Seems comfortable at this time. Past medical history. As mentioned above. Past surgical history. Breast lesion excision. Colonoscopy. EGD. Ligation of oviducts. Angioplasty. Left lower extremity stenting x 2 for PVD. Appendectomy. Social history. . Quit smoking 2009. Smoked cigars 20/week. Smoked for 40 years. Alcohol 6 beers twice a week. No drug use. Family history. Father had CAD. Mother had stroke. Admission Exam Per Admitting Provider General- Not in acute distress Head- atraumatic Eyes- PERRL. ENT- oropharynx clear Neck- supple, no JVD. Lungs- clear to auscultation no wheezing or crackles Heart- regular rhythm;tachycardia no murmur, no gallop. Abdomen- normal bowel sounds, soft, nontender, no distension Extremities- no pretibial edema, s/p left AKA, no erythema seen Neuro- alert, oriented x 3; PERRL, no facial palsy; no dysarthria; moves extremities Principal Diagnosis Septic shock E. coli bacteremia Possible right lower lobe pneumonia Discharge Exam General- oriented x 3, not in distress, speaks in sentences with no effort or accessory muscle use Eyes- anicteric Neck- no JVD Lungs- minimal rales at the bases, no wheezing Heart- normal rate, regular rhythm; no murmurs Abdomen- normal bowel sounds, nondistended, soft, nontender Extremities- no pretibial edema, no calf tenderness, + Left AKA Neuro- alert, oriented x 3; no gross focal neurologic deficits Skin- warm & dry Discharge Data Allergies Allergy/AdvReac Type Severity Reaction Status Date / Time diphenhydramine AdvReac Intermediate heart Verified 01/04/25 10:36 racing Consultations 02/14/25 20:40 ED Decision to Admit Stat 02/14/25 23:14 Consult Bus Monitor Routine 02/15/25 08:00 Consult Cardiology Routine 02/18/25 16:23 Consult Pulmonology Routine 02/20/25 17:00 Consult Infectious Diseases Routine Ordered Studies 02/14/25 18:03 CT abd pelvis IV con only Stat FINDINGS: Lung bases: Left lower lobe atelectasis. Heart: Coronary artery calcification. Aortic valve calcifications. ABDOMEN: Liver: Stable intrahepatic biliary ductal dilatation. Slight interval increase in gallbladder distention. Gallbladder and bile ducts: See above. Pancreas: Unremarkable. No mass. No ductal dilation. Spleen: The spleen is stable in appearance when compared with prior exam. Adrenals: Unremarkable. No mass. Kidneys and ureters: Unremarkable. No solid mass. No hydronephrosis. Stomach and bowel: Interval resolution of numerous loops of dilated small bowel. No mucosal thickening. PELVIS: Appendix: No findings to suggest acute appendicitis. Bladder: Distended urinary bladder. Reproductive: Unremarkable as visualized. ABDOMEN and PELVIS: Intraperitoneal space: Unremarkable. No free air. No significant fluid collection. Bones/joints: Stable T12 vertebral body compression fracture. No dislocation. Soft tissues: Unremarkable. Vasculature: Diffuse vascular calcifications of the abdominal aorta and its branch vessels. There are 2 displaced vascular embolization plug seen within a large occluded infrarenal abdominal aortic aneurysm measuring 5.8 x 7.1 cm in AP and transverse dimension. There is occlusion of the common internal and external iliac arteries bilaterally. 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 Lymph nodes: Unremarkable. No enlarged lymph nodes. IMPRESSION: Interval resolution of previously noted small bowel obstruction Stable occlusion of the large infrarenal abdominal aortic aneurysm and both common internal and external iliac arteries. Persistent patency of the right presumed axillary to common femoral artery bypass graft Stable T12 vertebral body compression fracture resulting in 40% vertebral body height loss. CT angio chest PE protocol Stat FINDINGS: Pulmonary arteries: Exam limited secondary to patient respiratory motion. No large central pulmonary embolism. Distention of the main pulmonary artery suggesting pulmonary arterial hypertension Aorta: No acute findings. No thoracic aortic aneurysm. Other arteries: Patent proximal right axillary to presumed common femoral artery bypass graft. Lungs: Diffuse changes COPD. No mass. No consolidation. Left lower lobe atelectasis Pleural space: Trace left pleural effusion No pneumothorax. Heart: Cardiomegaly. Coronary artery calcifications. No significant pericardial effusion. No evidence of RV dysfunction. Bones/joints: No acute fracture. No dislocation. Soft tissues: Unremarkable. Lymph nodes: Unremarkable. No enlarged lymph nodes. IMPRESSION: No large central pulmonary embolus Trace left pleural effusion Left lower lobe atelectasis Diffuse changes COPD. 02/18/25 14:48 CT chest diagnostic wo con Routine FINDINGS: Severe pulmonary emphysema present. Moderate to large bilateral pleural effusions present, appearing are increased in the interval. Large area of airspace consolidation in the right lower lobe, also appearing. Honeycombing noted in the subpleural lower lobes. No pneumothorax. Heart size is enlarged, unchanged. No pericardial effusion. Advanced atherosclerotic disease. Trachea and mainstem bronchi patent. No adenopathy identified. Medical tubing noted in the right chest wall, not fully evaluated. Ascending aorta with possible repair or stent noted at the edge of the [id number]. Appearance of the spine unchanged with osseous demineralization and compression fractures. IMPRESSION: 1. Moderate to large large bilateral pleural effusions, appearing increased in the interval, with cardiomegaly and CT features of volume overload/CHF. 2. Right lower lobe airspace consolidation favoring pneumonia. 3. Advanced emphysema and pulmonary fibrosis/interstitial lung disease. Hospital Course (1) Septic shock: (1) Septic shock: Septic shock E. coli bacteremia Possible right lower lobe pneumonia Presented with fever, diarrhea and some confusion Currently mental status back to baseline, pt is alert and oriented CT chest and CT abdomen pelvis reviewed - no acute findings Respiratory BioFire negative urine culture: Negative Blood cultures: E. coli patient received IV pressors at the ICU Received cefepime, ceftriaxone, currently on Zosyn for treatment of concurrent pneumonia 02/20 Hemodynamically stable so far ID consulted for antibiotic management 02/22 Discussed w/ ID - plan to DC on Bactrim - treat until 02/28/2025 Acute Hypoxic Respiratory Failure Volume overload Takotsubo cardiomyopathy was on 10 L of Oxygen via nasal cannula -- CT chest showing moderate to large b/l pleural effusions Possible right lower lobe consolidation- pneumonia 02/20 Patient initially required high flow O2, and was diuresed with IV Lasix Patient responding well, currently down to 2 L of O2 via nasal cannula Pulmonology service consulted Perforomist and Pulmicort, Teri Giron ordered Appreciate pulmonology service recommendation awaiting further recommendations for antibiotic regimen from ID 02/21 Oxygen requirement unsteady. Pt looks comfortable, denies any shortness of breath. She does not really ambulate - as she has hx of left AKA, uses wheelchair Discussed w/ pulm. - cont. diuresis as hypoxia 2/2 pl. effusions 02/23 Oxygen requirement improving. Pt feels well. Diuresing well. 02/24 Minimal oxygen requirement, much improved, currently on RA. Pt is feeling well, inquiring about DC. 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 consulted troponin trended down (+) Takotsubo cardiomyopathy monitor closely Melena resolved Hg stable at ~10 heparin drip transitioned to usual Xarelto Protonix IV BID monitor closely Hyponatremia Sodium 137 History of CAD status post stent Status post stenting of the circumflex obtuse marginal artery in 2004 Nonobstructive CAD on cardiac catheterization January 2023 Continue aspirin and statin Holding Imdur initially inpt History of peripheral vascular disease Status post left AKA in 2015 Bilateral iliac artery stenting in October 2016 Right axillary to femoral and femoral posterior tibial bypass in June 2019 Continue aspirin and statin Follow-up with vascular surgery Infrarenal abdominal aortic aneurysm Status post prior embolization in June 2021 CAT scan today shows 5.8X 7.1 cm aneurysm Mild fusiform dilatation of ascending thoracic aorta 4 cm Needs close follow-up with vascular surgery History of iron deficiency anemia Received one unit prbc and IV Venofer last admission On iron pills Hemoglobin- stable pvera; Diarrhea resolved T12 compression fracture Pain control Nocturnal hypoxia Uses 2 L at bedtime History of alcohol use no signs of alcohol withdrawal Total Time Total Time Spent Total Time Spent (In Minutes): 40 Discharge Plan Discharge Items Patient Disposition: Home - Self-Care Reason For Visit: SEPTIC SHOCK Discharge Diagnosis: Septic shock E. coli bacteremia Possible right lower lobe pneumonia Condition on Discharge: Fair Activity: Per Instructions section Non-emergency contact: Primary Care Provider Call non-emergency contact if: you have any medication questions and your symptoms worsen Follow-up/Referrals: Arturo Bermudez MD [Primary Care Provider] - (Date & Time 02/27/2025 10:00 AM Provider: Arturo Bermudez MD [facility]) Diet: Regular Addtl Attending Provider Instructions: Follow up with your primary care physician within 1 week. The appointment was scheduled for you for February 27, 2025. Finish antibiotic course with Bactrim as prescribed. Take probiotics for next several days. Your metoprolol dose was decreased to 25 mg twice a day, discuss with your doctor if/when to resume your previous dose. You were also started on Trelegy inhaler as recommended by pulmonology. Pending Studies at Discharge: No Stand-Alone Forms: My [facility], Smoking Cessation Medications and DC Order Prescriptions: New Advanced Probiotic 625 mg (10 billion cell) Capsule 7 cap PO DAILY Qty: 7 0RF sulfamethoxazole-trimethoprim [Bactrim DS] 800-160 mg tablet 1 tab PO BID 4 Days Qty: 8 0RF metoprolol tartrate 25 mg Tablet 25 mg PO BID Qty: 30 0RF Trelegy Ellipta 100-62.5-25 mcg blister with device 1 inh inhalation DAILY Qty: 28 0RF Continued calcium carbonate [Calcium 600] 600 mg calcium (1,500 mg) tablet 600 mg PO DAILY cilostazol 100 mg tablet 100 mg PO BID nitroglycerin [Nitrostat] 0.4 mg tablet, sublingual 0.4 mg Sublingual Q5M PRN (Reason: Chest Pain) Qty: 20 5RF multivitamin Tablet 1 tab PO QAM atorvastatin [Lipitor] 40 mg Tablet 40 mg PO QPM aspirin 81 mg tablet,delayed release (DR/EC) 81 mg PO QAM Qty: 0 0RF Xarelto 20 mg tablet 20 mg PO HS Qty: 0 0RF omega 5-[id number]-vsf-fish oil [Fish Oil] 300-1,000 mg Capsule 1 cap PO QAM isosorbide mononitrate 30 mg Tablet Extended Release 24 Hr 30 mg PO QAM Qty: 30 1RF potassium chloride 20 mEq tablet extended release 20 meq PO [facility] Advanced Probiotic 625 mg (10 billion cell) Capsule 10 cap PO DAILY Qty: 10 0RF ferrous sulfate 325 mg (65 mg iron) Tablet,Delayed Release (Dr/Ec) 325 mg PO BID Qty: 60 1RF lidocaine 4 % adhesive patch,medicated 1 patch topical DAILY 10 Days Qty: 10 0RF tramadol 50 mg tablet 50 mg PO Q6 PRN (Reason: Pain, Moderate) Held furosemide [Lasix] 40 mg tablet 40 mg PO BID Hold Instructions: Resume on 02/26/25. Discontinued metoprolol tartrate [Lopressor] 50 mg Tablet 50 mg PO BID Discharge Orders: Discharge Order (Routine); Ordered 02/24/25 Ordered By: Edgar Willett Admission Data Admit Date/Time: 02/14/25 21:27 Attending Provider: Edgar Willett Admit Provider: Justen Raymond Primary Care Provider: Arturo Bermudez Other Providers: Justen Raymond; Heladio Andrade; Carlos Torres; Adriel Ayala; Juan J Grewal; Cristian Modi; Antonio Ceron Jr; Diaz Gonzalez; Varsha Armstrong; Rashida Agudelo; Sekou Soriano; Sekou Esparza; Krystle New; Renato Rowland; Minna Hope; Renato Baker; Jamie Mancia; Momo Trujillo; Mehdi Vasquez; Don Thomson; Tee Garcia; Latisha Sanchez; Crystal Tejeda; Mario Gaona; Yimi Keita; Rojas Cisse I.; Justin Shannon II; Anushka Campos; Arturo Simmons; Keon Cordero; Odalys French; Godwin Palacios
[2025-02-24 11:43] VITALS: TEMP 97.7; O2SAT 95
[2025-02-24 12:36] VITALS: BP 128/67; PULSE 81
== END 2025-02-24 13:24 | disposition home or self-care (01) | DRG 871 ==
LOC: ED 17:35 → 1E 21:27 → SUATTDRO 21:27 → 1E 22:24 → 2S 02-18 18:31

== ENCOUNTER 2025-06-15 13:05 | Inpatient (IN) ==
--- NOTE | 2025-06-15 13:46 | Emergency Department Note ---
Impression & Plan Acute GI bleeding, Tachycardia, Anemia, Coagulopathy, Weakness, Atrial fibrillation ED Provider Note NAME: PONCHO FLORIAN AGE: 84 SEX: F : 1940 ARRIVES VIA: Walk-In INFORMANT: [Patient] ED PROVIDER(S): [Conor Robles MD] CHIEF COMPLAINT: Dr. Referred HISTORY OF PRESENT ILLNESS: The patient is an 84-year-old female who states that for 3 days, she has noticed some blood in the toilet and in her stools. She has felt weak and washed out, and, in the last 2 days, mildly short of breath with exertion. She has had some nausea without vomiting. She has noticed some diffuse intermittent abdominal pain. The patient went to her doctor's office today, she had a rectal exam performed that showed blood, there were concerns for upper GI bleeding. Of note, the patient is on Xarelto. There has been no fever, no cough or congestion. She has had a previous GI bleed, she was not sure of the source. PMHx/PSHx/Social Hx: See Below PHYSICAL EXAM: GENERAL: Patient is in no acute distress. HEENT: No acute trauma, normocephalic atraumatic, mucous membranes moist, no nasal congestion. NECK: No stridor, no adenopathy, no meningismus, trachea is midline. LUNGS: Diminished breath sounds bilaterally with some scattered crackles bilaterally, no wheezing or respiratory distress. HEART: Subtle systolic murmur with a somewhat irregular rhythm, mildly tachycardic. ABDOMEN: Soft, nontender, no peritonitis. EXTREMITIES: No cyanosis, left ungot-vgo-vyfg amputation noted. NEUROLOGIC: Oriented x 3, no acute motor or sensory deficits, no focal weakness. SKIN: No jaundice, no diaphoresis. DIFFERENTIAL DIAGNOSIS: Upper or lower GI bleeding, coagulopathy, anemia, electrolyte imbalance, among others. EMERGENCY DEPARTMENT PROCEDURES: MEDICAL DECISION MAKING: There is no leukocytosis. The patient is quite anemic with a hemoglobin of 7.1. There is a normal platelet count. No bandemia. INR is slightly high at 1.2, likely from her Xarelto use. There was no renal failure or significant electrolyte abnormality. No concerning liver enzyme elevation. ECG showed atrial fibrillation, there was no ST elevation. Cardiac enzyme testing x 1 was not consistent with acute cardiac injury. Chest x-ray did did not show CHF or pneumonia. Abdominal and pelvis CT showed some chronic findings, no source for her GI bleeding. On exam, the patient was slightly tachycardic, she was in atrial fibrillation, luckily, she was not hypotensive. She was not in distress. The patient was given a 500 cc saline bolus. She was ordered for IV Protonix and IV Pepcid. Given the low hemoglobin, given her ongoing GI bleeding, given her Xarelto use, I did order for 1 unit of packed red blood cells to be transfused. The patient did sign the appropriate paperwork for the transfusion. The patient is clearly in need of a hospital stay. I did speak with her and her family. I did talk with case management, the on-call hospitalist was consulted. Prior/Outside records/notes reviewed: None ECG per my interpretation: Indication was tachycardia. The ECG shows atrial fibrillation with some PVCs. The rate was 113. There was diffuse nonspecific ST change. There was no acute ST elevation, QTc was 419. Continuous Cardiac Monitoring per my interpretation: An order was placed for continuous cardiac monitoring. The monitor shows a rate of 112 with atrial fibrillation. Imaging/x-ray results per my interpretation: Chest x-ray shows some potential atelectasis, no CHF or pneumonia. Chronic Medical/Social conditions affecting care: Advanced age, chronic Xarelto use. Care/Management discussed with: Case management and the on-call hospitalist. Level of care consideration(s): After review of the information above and other included data: --I believe the patient requires escalation of care to admission Critical Care Note: I have personally spent 43 minutes of critical care time in the direct management of this patient. This includes bedside care, interpretation of diagnostic studies, and testing, discussion with consultants, patient, and family members, and other required patient management activities. This 43 minutes is in excess of all separately billable procedures. DISPOSITION: Admission Past Med/Surg History Problem List Atrial fibrillation (Acute) Weakness (Acute) Coagulopathy (Acute) Anemia (Acute) Tachycardia (Acute) Acute GI bleeding (Acute) Bacterial pneumonia E coli bacteremia Pleural effusion COPD with emphysema Pulmonary edema Bacteremia Tachycardia CHF (congestive heart failure) Takotsubo cardiomyopathy Acute non-ST elevation myocardial infarction (NSTEMI) (Acute) Hypokalemia (Acute) Acute hyponatremia (Acute) Hypomagnesemia (Acute) Acute hypoxic respiratory failure (Acute) Complicated urinary tract infection (Acute) Septic shock (Acute) Shock Electrolyte abnormality Septic shock Acute CHF Acute heart failure with reduced ejection fraction (HFrEF) Thoracic compression fracture Diarrhea Severe sepsis Rectal bleeding Acute anemia Proctocolitis Sepsis Anemia (Acute) Elevated WBC count (Acute) Abnormal computed tomography of abdomen and pelvis (Acute) AAA (abdominal aortic aneurysm) (Acute) Right sided abdominal pain (Acute) Stented coronary artery HLD (hyperlipidemia) (Chronic) HTN (hypertension) (Chronic) Carotid stenosis (Chronic) PVD (peripheral vascular disease) (Chronic) "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" History of heart artery stent (Chronic) "1997" S/P appendectomy (Chronic) H/O tubal ligation (Chronic) H/O colonoscopy (Chronic) "adenomatous & TVA polyps, diverticulosis, repeat 3 yrs 02/11/2015" Adenomatous polyps Current use of anticoagulant therapy (Acute) Leg wound, right Osteoporosis (Acute) Iliac aneurysm (Acute) Dyslipidemia (Acute) Chronic ischemic heart disease (Acute) Chronic ischemia, myocardial (Acute) Chest pain (Acute) Arteriosclerotic cardiovascular disease (Acute) S/P AKA (above knee amputation) Abscess of left thigh Encounter for pre-operative examination Anemia Chest pain (Acute) Hypoxia Angina at rest Diabetes mellitus, type II AAA (abdominal aortic aneurysm) s/p embolization 06/2021 Dr. Bolanos S/P femoral-popliteal bypass surgery PAD (peripheral artery disease) (Acute) Anemia Hx of arterial bypass of lower limb LEFT LEG 07/13/2019: Grade 2 view, MAC#3, ETT#7.0 atraumatic x 1. No issues per anesthesia postop progress note. CAD (coronary artery disease) stent (1997) Medical History Prediabetes Wheelchair dependence History of recent hospitalization 01/2023 [facility] - chest pain On home O2 qHS On anticoagulant therapy Lower GI bleed HISTORY OF FROM HEMORRHOID Peripheral vascular disease Osteoarthritis Hypertension controlled, stable per pt Hyperlipidemia Surgical History S/P insertion of iliac artery stent History of cardiac cath 02/22/23 - [facility] - CP - no stents. History of esophagogastroduodenoscopy (EGD) History of incision and drainage left inner thigh 02/08/2020: LMA#4 atraumatic x 1. No issues per anesthesia postop progress note. 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-DOES NOT WEAR PROSTHESIS History of appendectomy History of bilateral tubal ligation H/O breast surgery X 2-BENIGN LUMPECTOMY Previous back surgery BONE SPUR REMOVED Family History Son Family history of diabetes mellitus Other No family history of adverse response to anesthesia Social History Smoking Status: Former smoker Tobacco Type: Cigarettes Second Hand Exposure: No; Do You Dip or Chew Tobacco: No; Hx Alcohol Use: Yes Alcohol type: beer Hx Substance Use: No Preferred Language: Croatian Communication Ability: Effective Face Painter Required: No Beliefs That Will Affect Care: None marital status: Current Living Situation: Spouse Current Living Situation Comment: [facility] Feels Safe at Home: Yes Assistive Devices: None, Lift Chair, Walker and Wheelchair Allergies Allergies Allergy/AdvReac Type Severity Reaction Status Date / Time diphenhydramine AdvReac Intermediate heart Verified 01/04/25 10:36 racing hctz AdvReac hyponatremi Uncoded 06/15/25 16:07 a Home Meds Home Medications Medication Instructions Recorded Confirmed atorvastatin 40 mg tablet (Lipitor) 40 mg PO QPM 03/24/18 06/15/25 multivitamin 1 tab PO QAM 03/24/18 06/15/25 furosemide 40 mg tablet (Lasix) 40 mg PO BID 08/06/19 06/15/25 cilostazol 100 mg tablet 100 mg PO BID 03/06/20 06/15/25 omega 8-euw-gkk-fish oil 300 1 cap PO QAM 02/20/23 06/15/25 mg-1,000 mg capsule (Fish Oil) calcium carbonate (Calcium 600) 600 mg PO DAILY 07/14/23 06/15/25 potassium chloride 20 mEq 20 meq PO BID 01/30/25 06/15/25 tablet,extended release tramadol 50 mg tablet 50 mg PO Q6 PRN Pain, Moderate 02/14/25 06/15/25 L.acidop,casei,lactis,rham-B.lact,brandon 0 cap PO DAILY 06/15/25 06/15/25 625 mg (10 billion cell) capsule (Advanced Probiotic) ferrous sulfate 325 mg (65 mg 325 mg PO DAILY 06/15/25 06/15/25 iron) tablet,delayed release fluticasone fur. 100 mcg-umeclid 1 inh inhalation UD 06/15/25 06/15/25 62.5 mcg-vilant 25 mcg inhalat.powder (Trelegy Ellipta) metoprolol tartrate 25 mg tablet 50 mg PO BID 06/15/25 06/15/25 Previous Rx's Medication Instructions Recorded aspirin 81 mg tablet,delayed 81 mg PO QAM #0 tabs 08/07/19 release rivaroxaban 20 mg tablet (Xarelto) 20 mg PO HS #0 tabs 08/07/19 isosorbide mononitrate 30 mg 30 mg PO QAM #30 tabs 02/22/23 tablet,extended release 24 hr nitroglycerin 0.4 mg sublingual 0.4 mg sublingual Q5M PRN Chest 07/12/24 tablet (Nitrostat) Pain #20 tabs L.acidop,casei,lactis,rham-B.lact,brandon 7 cap PO DAILY #7 caps 02/24/25 625 mg (10 billion cell) capsule (Advanced Probiotic) Results & Data (ED) Vital Signs Vital Signs - 24 hr 06/15/25 13:16 06/15/25 13:28 06/15/25 14:27 Temperature 37.2 C Temperature Source Temporal Artery Scan Pulse Rate 112 H 119 H Pulse Rate [Left Finger] Pulse Rate from SpO2 Sensor 103 H Respiratory Rate 18 22 Respiratory Effort / Characteristics Non-Labored Respiratory Depth Normal Blood Pressure 120/69 Blood Pressure [Left Arm] Blood Pressure Mean 86 Blood Pressure Mean [Left Arm] Pulse Oximetry 93 92 94 Oxygen Delivery Method Room Air Room Air Sepsis Recent Fever Within 48 Hours No Sepsis New/Unexplained Change in Mental Status No Sepsis Action Taken by Nursing No Action Required 06/15/25 14:30 06/15/25 14:30 06/15/25 14:30 Temperature Temperature Source Pulse Rate 114 H Pulse Rate [Left Finger] Pulse Rate from SpO2 Sensor 105 H Respiratory Rate 28 H Respiratory Effort / Characteristics Respiratory Depth Blood Pressure 138/82 138/82 Blood Pressure [Left Arm] Blood Pressure Mean 115 115 Blood Pressure Mean [Left Arm] Pulse Oximetry 90 Oxygen Delivery Method Sepsis Recent Fever Within 48 Hours Sepsis New/Unexplained Change in Mental Status Sepsis Action Taken by Nursing 06/15/25 14:30 06/15/25 14:30 06/15/25 14:30 Temperature Temperature Source Pulse Rate Pulse Rate [Left Finger] Pulse Rate from SpO2 Sensor Respiratory Rate Respiratory Effort / Characteristics Respiratory Depth Blood Pressure 138/82 138/82 138/82 Blood Pressure [Left Arm] Blood Pressure Mean 115 115 115 Blood Pressure Mean [Left Arm] Pulse Oximetry Oxygen Delivery Method Sepsis Recent Fever Within 48 Hours Sepsis New/Unexplained Change in Mental Status Sepsis Action Taken by Nursing 06/15/25 14:42 06/15/25 14:51 06/15/25 15:00 Temperature Temperature Source Pulse Rate 120 H 114 H Pulse Rate [Left Finger] Pulse Rate from SpO2 Sensor 95 H 90 Respiratory Rate 18 24 Respiratory Effort / Characteristics Respiratory Depth Blood Pressure 153/68 H Blood Pressure [Left Arm] Blood Pressure Mean 105 Blood Pressure Mean [Left Arm] Pulse Oximetry 94 91 Oxygen Delivery Method Sepsis Recent Fever Within 48 Hours Sepsis New/Unexplained Change in Mental Status Sepsis Action Taken by Nursing 06/15/25 15:00 06/15/25 15:00 06/15/25 15:00 Temperature Temperature Source Pulse Rate Pulse Rate [Left Finger] Pulse Rate from SpO2 Sensor Respiratory Rate Respiratory Effort / Characteristics Respiratory Depth Blood Pressure 153/68 H 153/68 H 153/68 H Blood Pressure [Left Arm] Blood Pressure Mean 105 105 105 Blood Pressure Mean [Left Arm] Pulse Oximetry Oxygen Delivery Method Sepsis Recent Fever Within 48 Hours Sepsis New/Unexplained Change in Mental Status Sepsis Action Taken by Nursing 06/15/25 15:00 06/15/25 15:00 06/15/25 15:27 Temperature Temperature Source Pulse Rate 109 H 120 H Pulse Rate [Left Finger] Pulse Rate from SpO2 Sensor 97 H Respiratory Rate 20 23 Respiratory Effort / Characteristics Respiratory Depth Blood Pressure 153/68 H Blood Pressure [Left Arm] Blood Pressure Mean 105 Blood Pressure Mean [Left Arm] Pulse Oximetry 94 Oxygen Delivery Method Sepsis Recent Fever Within 48 Hours Sepsis New/Unexplained Change in Mental Status Sepsis Action Taken by Nursing 06/15/25 15:42 06/15/25 15:46 06/15/25 16:00 Temperature Temperature Source Pulse Rate 101 H 108 H Pulse Rate [Left Finger] Pulse Rate from SpO2 Sensor 109 H Respiratory Rate 26 H Respiratory Effort / Characteristics Respiratory Depth Blood Pressure 130/87 Blood Pressure [Left Arm] Blood Pressure Mean 102 Blood Pressure Mean [Left Arm] Pulse Oximetry 92 Oxygen Delivery Method Sepsis Recent Fever Within 48 Hours Sepsis New/Unexplained Change in Mental Status Sepsis Action Taken by Nursing 06/15/25 16:00 06/15/25 16:00 06/15/25 16:00 Temperature Temperature Source Pulse Rate Pulse Rate [Left Finger] Pulse Rate from SpO2 Sensor Respiratory Rate Respiratory Effort / Characteristics Respiratory Depth Blood Pressure 130/87 130/87 130/87 Blood Pressure [Left Arm] Blood Pressure Mean 102 102 102 Blood Pressure Mean [Left Arm] Pulse Oximetry Oxygen Delivery Method Sepsis Recent Fever Within 48 Hours Sepsis New/Unexplained Change in Mental Status Sepsis Action Taken by Nursing 06/15/25 16:00 06/15/25 16:12 06/15/25 16:15 Temperature Temperature Source Pulse Rate 115 H Pulse Rate [Left Finger] 119 H Pulse Rate from SpO2 Sensor 95 H Respiratory Rate 22 20 Respiratory Effort / Characteristics Respiratory Depth Blood Pressure 130/87 Blood Pressure [Left Arm] 129/76 Blood Pressure Mean 102 Blood Pressure Mean [Left Arm] 93 Pulse Oximetry 91 91 Oxygen Delivery Method Sepsis Recent Fever Within 48 Hours Sepsis New/Unexplained Change in Mental Status Sepsis Action Taken by [facility] Medications Current Medication List: was personally reviewed by me Laboratory Data Attestation: I reviewed the patient's lab results. 06/15/25 14:00 06/15/25 14:00 Lab Results 06/15/25 06/15/25 06/15/25 Range/Units 14:00 14:04 14:11 WBC 9.21 (4.8-10.8) K/ul RBC 2.31 L (4.20-5.40) M/uL Hgb 7.1 L (12.0-16.0) g/dL POC Hgb 7.5 L (12.0-16.0) g/dl Hct 21.7 L (37.0-47.0) % POC Hct 22 L (37-47) % MCV 93.9 (80.0-100.0) fL MCH 30.7 (25.0-34.0) pg MCHC 32.7 (32.0-36.0) g/dL RDW Std Deviation 52.1 H (36.4-46.3) fL RDW Coeff of Jean 15.3 H (11.5-14.5) % Plt Count 338 (130-400) K/uL MPV 9.7 (9.4-12.4) fL Immature Gran % (Auto) 0.3 % Neut % (Auto) 84.1 % Lymph % (Auto) 8.3 % Christian % (Auto) 6.8 % Eos % (Auto) 0.0 % Baso % (Auto) 0.5 % Neut # (Auto) 7.74 H (1.40-6.50) K/uL Lymph # (Auto) 0.76 L (1.20-3.40) K/uL Christian # (Auto) 0.63 H (0.11-0.59) K/uL Eos # (Auto) 0.00 (0.00-0.50) K/uL Baso # (Auto) 0.05 (0.00-0.20) K/uL Immature Gran # (Auto) 0.03 (0.01-0.20) K/uL Polychromasia 1+ Ovalocytes 1+ PT 12.5 H (9.0-12.0) Seconds INR 1.2 H (0.9-1.1) APTT 22 (21-31) Seconds PTT Ratio 0.8 POC Sodium 139 (135-144) mmol/L Sodium 138 (136-145) mmol/L POC Potassium 3.9 (3.3-5.0) mmol/L Potassium 3.9 (3.5-5.1) mmol/L POC Chloride 104 (101-112) mmol/L Chloride 104 (98-107) mmol/L Carbon Dioxide 25 (21-32) mmol/L POC Total CO2 22 L (24-31) mmol/L Anion Gap 9 (3-11) POC Anion Gap 18.0 (16-25) mmol/L POC BUN 23 H (7-18) mg/dl BUN 25 H (6-23) mg/dl Creatinine 0.90 (0.6-1.2) mg/dl POC Creatinine 1.1 (0.6-1.3) mg/dl Est Cr Clr Drug Dosing Not Reportable eGFR 63.43 BUN/Creatinine Ratio 27.8 H (10-20) Glucose 130 H (70-99(Fasting)) mg/dl POC Glucose (other) 123 H (70-99) mg/dl Calcium 9.1 (8.6-10.3) mg/dl POC Ioniz Calcium Chari 1.12 (1.12-1.32) mmol/l Total Bilirubin 0.5 (0.2-1.0) mg/dl AST 19 (13-39) U/L ALT 14 (7-52) U/L Alkaline Phosphatase 55 (34-104) U/L Troponin I High Sens 13.5 (0-14) pg/ml Total Protein 7.0 (6.0-8.3) gm/dl Albumin 3.8 (3.4-5.0) gm/dl Globulin 3.2 (2.5-4.0) gm/dl Albumin/Globulin Ratio 1.2 (0.9-2) Blood Type A Positive Antibody Screen NEGATIVE Crossmatch See Detail Administered Medications Discontinued Medications Pantoprazole Sodium 80 mg/ (Dextrose) 120 mls @ 400 mls/hr IV NOW ONE Stop: 06/15/25 13:45 Last Infusion: 06/15/25 15:43 Dose: Infused Documented By: Admin: 06/15/25 14:57 Dose: 400 mls/hr Documented By: JERRY Famotidine (Pepcid 20mg Iv Push) 20 mg in 5 mls @ 2.5 mls/min IV NOW STA Stop: 06/15/25 13:29 Last Admin: 06/15/25 14:57 Dose: 2.5 mls/min Documented By: JERRY Sodium Chloride (Nss) 500 mls @ 999 mls/hr IV .Q31M ONE Stop: 06/15/25 14:16 Last Admin: 06/15/25 14:57 Dose: 999 mls/hr Documented By: JERRY Ioversol (Optiray 320 100ml) 94 ml IV ONCE ONE Stop: 06/15/25 15:12 Last Admin: 06/15/25 15:11 Dose: 94 ml Documented By: JESSEK Imaging Data Radiologist's Impression: Chest X-Ray 06/15/25 13:28 XR chest 1V portable HISTORY: 84 years-old Female bleeding acute shortness of breath COMPARISON: 02/18/2025 TECHNIQUE: AP view of the chest FINDINGS: Cardiac silhouette is enlarged. Atherosclerosis of the aorta. Mild chronic interstitial coarsening. No pneumothorax or overt pulmonary edema. Subsegmental bibasilar densities with blunting of the costophrenic angles. Bones appear grossly intact. IMPRESSION: 1. Cardiomegaly without overt pulmonary edema. 2. Mild bibasilar atelectasis. ACT 112: Negative or not required by law. The above report was generated using voice recognition software. It may contain grammatical, syntax or spelling errors. Electronically signed by: Bienvenido Cantor M.D. 06/15/2025 2:41 PM Abdomen/Pelvis CT 06/15/25 13:30 CT SCAN OF THE ABDOMEN AND PELVIS WITH IV CONTRAST CLINICAL HISTORY: GI bleeding COMPARISON STUDY: Abdominal CT dated 02/14/2025 TECHNIQUE: Following the IV administration of 94 cc of Optiray 320, CT scan of the abdomen and pelvis is performed from the lung bases to the proximal femora. Images are reviewed in the axial, sagittal, and coronal planes. IV contrast was administered without complication. A dose lowering technique was utilized adhering to the principles of ALARA. CT DOSE: 394.06 mGy.cm FINDINGS: Lung bases: The heart is enlarged and without pericardial effusion. The coronary arteries are densely calcified. Advanced emphysematous changes seen at the lung bases. There is bibasilar scarring/atelectasis. No airspace consolidation or pleural effusion is identified. Liver: The contrast-enhanced liver is normal in size, contour, and attenuation. There is mild to moderate intrahepatic biliary ductal dilatation. The hepatic veins and portal veins are patent. Scattered hepatic cysts measure up to 11 mm. Gallbladder: There are calcified gallstones without CT evidence of acute cholecystitis. Spleen: Normal in size and attenuation. Pancreas: Moderately atrophic and grossly unremarkable. Adrenal glands: Unremarkable. Kidneys: The contrast enhanced kidneys are normal in size and without hydronephrosis. The kidneys enhance symmetrically. There is extensive renovascular calcification. Abdominal vasculature: There is advanced atherosclerotic calcification of the abdominal aorta. The proximal abdominal measures patent. Vascular embolization plugs are seen in the proximal abdominal aorta, and there is a thrombosed abdominal aortic aneurysm which measures 5.7 x 6.8 cm (AP x transverse). The aneurysm extends approximately 12 cm in craniocaudal length. The [place] iliac arteries are occluded bilaterally. 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 A right axillofemoral bypass is patent. The right superficial femoral artery bypass is patent. The [place] right SFA is occluded. Imaged portions of the left common femoral and superficial femoral arteries are occluded. 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 The celiac trunk is patent. These findings are unchanged from 02/14/2025. Bowel: There is no bowel obstruction. The appendix is not visualized. Peritoneum: There is no intraperitoneal free air or abdominal ascites. Lymphadenopathy: None. Pelvic viscera: The bladder, uterus, and adnexa are normal as imaged. Skeletal structures: The skeletal structures are osteopenic. There is a chronic compression deformity of T12. There has been progressive loss of height of the T12 vertebral body as compared to 02/14/2025. Moderate lumbosacral spondylosis is observed and there is mild scoliosis. No lytic or blastic lesions are seen. IMPRESSION: 1. No acute infectious or inflammatory findings are identified in the abdomen or pelvis. 2. Cardiomegaly and severe emphysema. 3. Aortic occlusion plugs are in place with thrombosis of a large abdominal aortic aneurysm. The aneurysm sac measures 5.7 x 6.8 cm. 4. A right axillofemoral bypass is patent. 5. Multiple vessel occlusions as above. This is similar to the 02/14/2025 examination. 6. Cholelithiasis. 7. Additional findings as above. ACT 112: Negative or not required by law. Electronically signed by: Conor White M.D. 06/15/2025 3:35 PM Discharge Plan Visit Data Chief Complaint: Referred by Doctor Stated Complaint: ABN RESULTS, DOC REFERRAL, BLOOD FROM [facility] ED Provider: Conor Robles Discharge Problem: Acute GI bleeding, Tachycardia, Anemia, Coagulopathy, Weakness, Atrial fibrillation Patient Disposition: Admitted As Inpatient Condition: Serious Forms Stand Alone Forms: My [employer] Prescriptions Prescriptions: No Action calcium carbonate [Calcium 600] 600 mg calcium (1,500 mg) tablet 600 mg PO DAILY cilostazol 100 mg tablet 100 mg PO BID nitroglycerin [Nitrostat] 0.4 mg tablet, sublingual 0.4 mg Sublingual Q5M PRN (Reason: Chest Pain) Qty: 20 5RF Patient Comments: 06/14- Not on faxed list unable to verify multivitamin Tablet 1 tab PO QAM atorvastatin [Lipitor] 40 mg Tablet 40 mg PO QPM furosemide [Lasix] 40 mg tablet 40 mg PO BID Hold Instructions: Resume on 02/26/25. aspirin 81 mg tablet,delayed release (DR/EC) 81 mg PO QAM Qty: 0 0RF Xarelto 20 mg tablet 20 mg PO HS Qty: 0 0RF omega 9-xdn-sqm-fish oil [Fish Oil] 300-1,000 mg Capsule 1 cap PO QAM isosorbide mononitrate 30 mg Tablet Extended Release 24 Hr 30 mg PO QAM Qty: 30 1RF ferrous sulfate 325 mg (65 mg iron) tablet,delayed release (DR/EC) 325 mg PO DAILY metoprolol tartrate 25 mg tablet 50 mg PO BID Advanced Probiotic 625 mg (10 billion cell) capsule 0 cap PO DAILY Patient Comments: 06/14- Not on faxed list unable to verify Trelegy Ellipta 100-62.5-25 mcg blister with device 1 inh inhalation UD potassium chloride 20 mEq tablet extended release 20 meq PO BID tramadol 50 mg tablet 50 mg PO Q6 PRN (Reason: Pain, Moderate) Patient Comments: 06/14- Not on faxed list unable to verify Advanced Probiotic 625 mg (10 billion cell) Capsule 7 cap PO DAILY Qty: 7 0RF Patient Comments: 06/14- Not on faxed list unable to verify. original: 7 caps daily Referrals Referrals: Arturo Bermudez MD [Primary Care Provider] - Discharge Problem: Anemia Qualifiers: Anemia type: unspecified type Qualified Code(s): D64.9 - Anemia, unspecified Atrial fibrillation Qualifiers: Atrial fibrillation type: unspecified Qualified Code(s): I48.91 - Unspecified atrial fibrillation
[2025-06-15 14:25] LABS: Hematocrit (blood only) 21.7 % (37.0-47.0); Hemoglobin 7.1 g/dL (12.0-16.0); Immature Granulocytes # (auto) 0.03 K/uL (0.01-0.20); Immature Granulocytes % (auto) 0.3 %; Mean Corpuscular Hemoglobin 30.7 pg (25.0-34.0); Mean Corpuscular Volume 93.9 fL (80.0-100.0); Platelet Count 338 K/uL (130-400); RDW Standard Deviation 52.1 fL (36.4-46.3); Red Blood Count 2.31 M/uL (4.20-5.40); White Blood Count 9.21 K/ul (4.8-10.8)
--- NOTE | 2025-06-15 14:42 | XRay Report ---
XR chest 1V portable HISTORY: 84 years-old Female bleeding acute shortness of breath COMPARISON: 02/18/2025 TECHNIQUE: AP view of the chest FINDINGS: Cardiac silhouette is enlarged. Atherosclerosis of the aorta. Mild chronic interstitial coarsening. N o pneumothorax or overt pulmonary edema. Subsegmental bibasilar densities with blunting of the costop hrenic angles. Bones appear grossly intact. IMPRESSION: 1. Cardiomegaly without overt pulmonary edema. 2. Mild bibasilar atelectasis. ACT 112: Negative or not required by law. The above report was generated using voice recognition software. It may contain grammatical, syntax o r spelling errors. Electronically signed by: Bienvenido Cantor M.D. 06/15/2025 2:41 PM
[2025-06-15 14:43] LABS: Alanine Aminotransferase 14 U/L (7-52); Albumin Globulin Ratio 1.2 (0.9-2); Albumin Level 3.8 gm/dl (3.4-5.0); Alkaline Phosphatase 55 U/L (34-104); Anion Gap 9 (3-11); Bilirubin,Total 0.5 mg/dl (0.2-1.0); Blood Urea Nitrogen 25 mg/dl (6-23); Calcium 9.1 mg/dl (8.6-10.3); Carbon Dioxide 25 mmol/L (21-32); Chloride 104 mmol/L (98-107); Globulin 3.2 gm/dl (2.5-4.0); Glucose 130 mg/dl (70-99(Fasting)); Potassium 3.9 mmol/L (3.5-5.1); Sodium 138 mmol/L (136-145); Total Protein 7.0 gm/dl (6.0-8.3)
[2025-06-15 14:49] LABS: Ovalocytes 1+; Polychromasia 1+
[2025-06-15] MEDS: FAMOTIDINE 20MG IV PUSH 20 MG/5 ML SYR IV STA (14:57)
[2025-06-15] MEDS: SODIUM CHLORIDE 0.9% 500 ML IV ONE (14:57)
[2025-06-15 15:04] LABS: INR 1.2 (0.9-1.1); Partial Thromboplastin Time 22 Seconds (21-31); Prothrombin Time 12.5 Seconds (9.0-12.0)
[2025-06-15] MEDS: OPTIRAY 320 100ml IV ONE (15:11)
[2025-06-15] MEDS ORDERED: SODIUM CHLORIDE 0.9% 100 ML IV PRN (15:34)
--- NOTE | 2025-06-15 15:36 | CT Scan Report ---
CT SCAN OF THE ABDOMEN AND PELVIS WITH IV CONTRAST CLINICAL HISTORY: GI bleeding COMPARISON STUDY: Abdominal CT dated 02/14/2025 TECHNIQUE: Following the IV administration of 94 cc of Optiray 320, CT scan of the abdomen and pelvi s is performed from the lung bases to the proximal femora. Images are reviewed in the axial, sagittal , and coronal planes. IV contrast was administered without complication. A dose lowering technique wa s utilized adhering to the principles of ALARA. CT DOSE: 394.06 mGy.cm FINDINGS: Lung bases: The heart is enlarged and without pericardial effusion. The coronary arteries are densely calcified. Advanced emphysematous changes seen at the lung bases. There is bibasilar scarring/atelec tasis. No airspace consolidation or pleural effusion is identified. Liver: The contrast-enhanced liver is normal in size, contour, and attenuation. There is mild to mode rate intrahepatic biliary ductal dilatation. The hepatic veins and portal veins are patent. Scattered hepatic cysts measure up to 11 mm. Gallbladder: There are calcified gallstones without CT evidence of acute cholecystitis. Spleen: Normal in size and attenuation. Pancreas: Moderately atrophic and grossly unremarkable. Adrenal glands: Unremarkable. Kidneys: The contrast enhanced kidneys are normal in size and without hydronephrosis. The kidneys enh ance symmetrically. There is extensive renovascular calcification. Abdominal vasculature: There is advanced atherosclerotic calcification of the abdominal aorta. The pr oximal abdominal measures patent. Vascular embolization plugs are seen in the proximal abdominal aort a, and there is a thrombosed abdominal aortic aneurysm which measures 5.7 x 6.8 cm (AP x transverse). The aneurysm extends approximately 12 cm in craniocaudal length. The upper [place] iliac arteries are occlu ded bilaterally. 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 A right axillofemora l bypass is patent. The right superficial femoral artery bypass is patent. The upper [place] right SFA is oc cluded. Imaged portions of the left common femoral and superficial femoral arteries are occluded. Aga in seen is near complete to complete long segment thrombosis of the superior mesenteric artery, as we ll as thrombosis of the splenic artery. The celiac trunk is patent. These findings are unchanged from 02/14/2025. Bowel: There is no bowel obstruction. The appendix is not visualized. Peritoneum: There is no intraperitoneal free air or abdominal ascites. Lymphadenopathy: None. Pelvic viscera: The bladder, uterus, and adnexa are normal as imaged. Skeletal structures: The skeletal structures are osteopenic. There is a chronic compression deformity of T12. There has been progressive loss of height of the T12 vertebral body as compared to 02/14/2025 . Moderate lumbosacral spondylosis is observed and there is mild scoliosis. No lytic or blastic lesio ns are seen. IMPRESSION: 1. No acute infectious or inflammatory findings are identified in the abdomen or pelvis. 2. Cardiomegaly and severe emphysema. 3. Aortic occlusion plugs are in place with thrombosis of a large abdominal aortic aneurysm. The aneu rysm sac measures 5.7 x 6.8 cm. 4. A right axillofemoral bypass is patent. 5. Multiple vessel occlusions as above. This is similar to the 02/14/2025 examination. 6. Cholelithiasis. 7. Additional findings as above. ACT 112: Negative or not required by law. Electronically signed by: Conor White M.D. 06/15/2025 3:35 PM
--- NOTE | 2025-06-15 16:03 | History & Physical Report ---
Date of Service June 15, 2025 Assessment & Plan (1) GI bleed: Plan: #Acute on chronic anemia Patient is 84 year old female with PMH HTN, HLD, PAF, PVD s/p left AKA, s/p bilateral iliac artery stenting, s/p femoral to posterior tibial bypass, AAA 5 cm s/p embolization 06/2021, CAD s/p PCI stent to circumflex obtuse marginal artery in 2004, COPD and others listed below presented to ER with c/o rectal bleeding with BMs x 3 days. 01/2025 admission for sepsis, proctocolitis and required 1 unit PRBC transfusion. Today in ER ER afebrile, P: 112, R: 18, BP 120/69, 93% on room air Hgb: 7.1. Was 11 on 05/30/2025 and 10 on 03/12/2025 BUN: 25, Cr: 0.9 Baseline creatinine ~0.8 CT abd/pelvis: No acute infectious or inflammatory findings are identified in the abdomen or pelvis. Cardiomegaly and severe emphysema. Aortic occlusion plugs are in place with thrombosis of a large abdominal aortic aneurysm. The aneurysm sac measures 5.7 x 6.8 cm. A right axillofemoral bypass is patent. Multiple vessel occlusions as above. This is similar to the 02/14/2025 examination. In ER given 500 mL NSS, IV PPI, IV Pepcid In ER typed and crossed and 1 unit PRBC transfusion ordered In ER rectal exam with maroon color stool in rectal vault. +Heme positive Repeat H&H after transfusion. Trend H&H Q12H NPO Hold Xarelto, aspirin. Will continue Pletal for now Monitor volume status closely as patient with known recent EF 30%. Will hold on IVF at this time, plan to continue home oral lasix GI consult. 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 Bolanos, vascular surgery CTAP today: Aortic occlusion plugs are in place with thrombosis of a large abdominal aortic aneurysm. The aneurysm sac measures 5.7 x 6.8 cm. A right axillofemoral bypass is patent.. Multiple vessel occlusions. This is similar to the 02/14/2025 examination. Continuing cilostazol for now. Continue atorvastatin Holding Xarelto, aspirin as per above --> resume as able #COPD Evidence emphysema on prior CTs Currently without evidence of exacerbation Continue home inhaler Xopenex neb prn Supplemental oxygen as needed with goal O2 sat 88-92% #Nocturnal hypoxia Continue home 2L oxygen HS #Alcohol use Drinks 1-2 beers a day Denies history ETOH withdrawal DVT Prophylaxis SCDs for now Admit PCU DNR/DNI as per discussion with pt Follows with Dr Bermudez for routine care Pt was seen and care coordinated with Dr Greer. See addendum I spent a total of 70 minutes reviewing notes, outpatient records, labs, medication, coordinating, documenting and providing care for this patient excluding time spent in the performance of separately billed services and excluding time spent by another provider/QHP. History of Present Illness Chief Complaint: rectal bleeding Primary Care Provider: Arturo Bermudez MD Patient is 84 year old female with PMH HTN, HLD, PVD s/p left AKA, s/p bilateral iliac artery stenting, s/p femoral to posterior tibial bypass, AAA 5 cm s/p embolization 06/2021, CAD s/p PCI stent to circumflex obtuse marginal artery in 2004, COPD and others listed below presented to ER with c/o rectal bleeding x 3 days. Per inpatient chart review History [facility] admission in 01/30/25-05/22 for sepsis, diarrhea, proctocolitis during that course did have episodes of rectal bleeding and required 1 PRBC transfusion. Recurrent hospitalization 02/14/2025- 02/24/2025 for septic shock, E. coli bacteremia requiring ICU admission and IV pressors. Initially treated with IV antibiotics and was discharged on Bactrim, also diagnosed with Takotsubo cardiomyopathy. Patient reports had been doing well since being home until past 3 days. Reported 3 days of red blood with BMs. Reports turns toilet water red. Reports stools soft. Reports bleeding only occurs with BM's. Having one BM daily but states didn't have BM today. States some abdominal cramping upper abdomen. Feeling more fatigued past 3 days. Denies SOB, CP, dizziness, syncope. Seen in clinic today referred to ER. Denies fever/chills, diaphoresis, N/V, HOFFMAN, vision changes, neck pain, CP, SOB, orthopnea, palpitations, cough, rhinorrhea, extremity edema, rashes, urinary symptoms, melena. Allergies Allergy/AdvReac Type Severity Reaction Status Date / Time diphenhydramine AdvReac Intermediate heart Verified 01/04/25 10:36 racing hctz AdvReac hyponatremi Uncoded 06/15/25 16:07 a Home Medications Medication Instructions Recorded Confirmed Type atorvastatin 40 mg tablet (Lipitor) 40 mg PO QPM 03/24/18 06/15/25 History multivitamin 1 tab PO QAM 03/24/18 06/15/25 History furosemide 40 mg tablet (Lasix) 40 mg PO BID 08/06/19 06/15/25 History aspirin 81 mg tablet,delayed 81 mg PO QAM #0 tabs 08/07/19 06/15/25 Rx release rivaroxaban 20 mg tablet (Xarelto) 20 mg PO HS #0 tabs 08/07/19 06/15/25 Rx cilostazol 100 mg tablet 100 mg PO BID 03/06/20 06/15/25 History omega 8-dyb-olo-fish oil 300 1 cap PO QAM 02/20/23 06/15/25 History mg-1,000 mg capsule (Fish Oil) isosorbide mononitrate 30 mg 30 mg PO QAM #30 tabs 02/22/23 06/15/25 Rx tablet,extended release 24 hr calcium carbonate (Calcium 600) 600 mg PO DAILY 07/14/23 06/15/25 History nitroglycerin 0.4 mg sublingual 0.4 mg sublingual Q5M PRN Chest 07/12/24 06/15/25 Rx tablet (Nitrostat) Pain #20 tabs potassium chloride 20 mEq 20 meq PO BID 01/30/25 06/15/25 History tablet,extended release ferrous sulfate 325 mg (65 mg 325 mg PO DAILY 06/15/25 06/15/25 History iron) tablet,delayed release fluticasone fur. 100 mcg-umeclid 1 inh inhalation DAILY 06/15/25 06/15/25 History 62.5 mcg-vilant 25 mcg inhalat.powder (Trelegy Ellipta) metoprolol tartrate 50 mg tablet 50 mg PO BID 06/15/25 06/15/25 History Past Med/Surg History Problem List GI bleed Atrial fibrillation (Acute) Weakness (Acute) Coagulopathy (Acute) Anemia (Acute) Tachycardia (Acute) Acute GI bleeding (Acute) Bacterial pneumonia E coli bacteremia Pleural effusion COPD with emphysema Pulmonary edema Bacteremia Tachycardia CHF (congestive heart failure) Takotsubo cardiomyopathy Acute non-ST elevation myocardial infarction (NSTEMI) (Acute) Hypokalemia (Acute) Acute hyponatremia (Acute) Hypomagnesemia (Acute) Acute hypoxic respiratory failure (Acute) Complicated urinary tract infection (Acute) Septic shock (Acute) Shock Electrolyte abnormality Septic shock Acute CHF Acute heart failure with reduced ejection fraction (HFrEF) Thoracic compression fracture Diarrhea Severe sepsis Rectal bleeding Acute anemia Proctocolitis Sepsis Anemia (Acute) Elevated WBC count (Acute) Abnormal computed tomography of abdomen and pelvis (Acute) AAA (abdominal aortic aneurysm) (Acute) Right sided abdominal pain (Acute) Stented coronary artery HLD (hyperlipidemia) (Chronic) HTN (hypertension) (Chronic) Carotid stenosis (Chronic) PVD (peripheral vascular disease) (Chronic) "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" History of heart artery stent (Chronic) "1997" S/P appendectomy (Chronic) H/O tubal ligation (Chronic) H/O colonoscopy (Chronic) "adenomatous & TVA polyps, diverticulosis, repeat 3 yrs 02/11/2015" Adenomatous polyps Current use of anticoagulant therapy (Acute) Leg wound, right Osteoporosis (Acute) Iliac aneurysm (Acute) Dyslipidemia (Acute) Chronic ischemic heart disease (Acute) Chronic ischemia, myocardial (Acute) Chest pain (Acute) Arteriosclerotic cardiovascular disease (Acute) S/P AKA (above knee amputation) Abscess of left thigh Encounter for pre-operative examination Anemia Chest pain (Acute) Hypoxia Angina at rest Diabetes mellitus, type II AAA (abdominal aortic aneurysm) s/p embolization 06/2021 Dr. Bolanos S/P femoral-popliteal bypass surgery PAD (peripheral artery disease) (Acute) Anemia Hx of arterial bypass of lower limb LEFT LEG 07/13/2019: Grade 2 view, MAC#3, ETT#7.0 atraumatic x 1. No issues per anesthesia postop progress note. CAD (coronary artery disease) stent (1997) Medical History Prediabetes Wheelchair dependence History of recent hospitalization 01/2023 [facility] - chest pain On home O2 qHS On anticoagulant therapy Lower GI bleed HISTORY OF FROM HEMORRHOID Peripheral vascular disease Osteoarthritis Hypertension controlled, stable per pt Hyperlipidemia Surgical History S/P insertion of iliac artery stent History of cardiac cath 02/22/23 - [facility] - CP - no stents. History of esophagogastroduodenoscopy (EGD) History of incision and drainage left inner thigh 02/08/2020: LMA#4 atraumatic x 1. No issues per anesthesia p ostop progress note. 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-DOES NOT WEAR PROSTHESIS History of appendectomy History of bilateral tubal ligation H/O breast surgery X 2-BENIGN LUMPECTOMY Previous back surgery BONE SPUR REMOVED Family History Son Family history of diabetes mellitus Other No family history of adverse response to anesthesia Social History (Reviewed 06/15/25 @ 18:25 by BRIT Jacobs Smoking Status: Former smoker Tobacco Type: Cigarettes Second Hand Exposure: No; Do You Dip or Chew Tobacco: No; Tobacco Cessation Education Requested by Patient: No Hx Alcohol Use: Yes Alcohol type: beer Hx Substance Use: No Preferred Language: Yoruba Communication Ability: Effective Office Assistant Required: No Beliefs That Will Affect Care: None marital status: Current Living Situation: Spouse Current Living Situation Comment: [facility] Other Information That Helps Us Care for You: No Feels Safe at Home: Yes Safety Concerns: Feels Safe At This Time Assistive Devices: Denture - Upper, Denture - Lower, Glasses, Walker and Wheelchair Review of Systems Review of Systems: All systems reviewed & are unremarkable except as noted in HPI & below Physical Exam Physical Exam: General: no distress, thin elderly female Head: normocephalic, atraumatic Eyes: conjunctiva non-injected, anicteric ENT: normal inspection external ears, nose, mucous membranes moist Neck: supple, trachea midline Lungs: clear, no respiratory distress, no wheezing/rhonchi/rales CV: irregularly irregular, rate 110, no pretibial edema Abd: normal BS, soft, non-tender Rectal: +small smear of dried maroon stool on underwear, digital rectal exam with maroon color stool in rectal vault, +Heme positive Ext: no cyanosis, no calf tenderness, LLE: +above knee amputation Neuro: A&O x 3, no focal deficits noted, normal affect Skin: warm, dry Results & Data Results & Data Vital Signs (Past 12 Hours) Vital Signs Temp Pulse Resp BP Pulse Ox O2 Del Method 06/15/25 15:46 108 H 06/15/25 13:28 92 Room Air 06/15/25 13:16 37.2 C 112 H 18 120/69 93 Room Air Laboratory Results Short CBC 06/15/25 Range/Units 14:00 WBC 9.21 (4.8-10.8) K/ul Hgb 7.1 L (12.0-16.0) g/dL Hct 21.7 L (37.0-47.0) % Plt Count 338 (130-400) K/uL BMP 06/15/25 14:00 Sodium 138 Potassium 3.9 Chloride 104 Carbon Dioxide 25 BUN 25 H Creatinine 0.90 Glucose 130 H Calcium 9.1 Liver Function 06/15/25 Range/Units 14:00 Total Bilirubin 0.5 (0.2-1.0) mg/dl AST 19 (13-39) U/L ALT 14 (7-52) U/L Alkaline Phosphatase 55 (34-104) U/L Albumin 3.8 (3.4-5.0) gm/dl Diagnostic Findings Chest X-Ray 06/15/25 13:28 XR chest 1V portable HISTORY: 84 years-old Female bleeding acute shortness of breath COMPARISON: 02/18/2025 TECHNIQUE: AP view of the chest FINDINGS: Cardiac silhouette is enlarged. Atherosclerosis of the aorta. Mild chronic interstitial coarsening. No pneumothorax or overt pulmonary edema. Subsegmental bibasilar densities with blunting of the costophrenic angles. Bones appear grossly intact. IMPRESSION: 1. Cardiomegaly without overt pulmonary edema. 2. Mild bibasilar atelectasis. ACT 112: Negative or not required by law. The above report was generated using voice recognition software. It may contain grammatical, syntax or spelling errors. Electronically signed by: Bienvenido Cantor M.D. 06/15/2025 2:41 PM Abdomen/Pelvis CT 06/15/25 13:30 CT SCAN OF THE ABDOMEN AND PELVIS WITH IV CONTRAST CLINICAL HISTORY: GI bleeding COMPARISON STUDY: Abdominal CT dated 02/14/2025 TECHNIQUE: Following the IV administration of 94 cc of Optiray 320, CT scan of the abdomen and pelvis is performed from the lung bases to the proximal femora. Images are reviewed in the axial, sagittal, and coronal planes. IV contrast was administered without complication. A dose lowering technique was utilized adhering to the principles of ALARA. CT DOSE: 394.06 mGy.cm FINDINGS: Lung bases: The heart is enlarged and without pericardial effusion. The coronary arteries are densely calcified. Advanced emphysematous changes seen at the lung bases. There is bibasilar scarring/atelectasis. No airspace consolidation or pleural effusion is identified. Liver: The contrast-enhanced liver is normal in size, contour, and attenuation. There is mild to moderate intrahepatic biliary ductal dilatation. The hepatic veins and portal veins are patent. Scattered hepatic cysts measure up to 11 mm. Gallbladder: There are calcified gallstones without CT evidence of acute cholecystitis. Spleen: Normal in size and attenuation. Pancreas: Moderately atrophic and grossly unremarkable. Adrenal glands: Unremarkable. Kidneys: The contrast enhanced kidneys are normal in size and without hydronephrosis. The kidneys enhance symmetrically. There is extensive renovascular calcification. Abdominal vasculature: There is advanced atherosclerotic calcification of the abdominal aorta. The proximal abdominal measures patent. Vascular embolization plugs are seen in the proximal abdominal aorta, and there is a thrombosed abdominal aortic aneurysm which measures 5.7 x 6.8 cm (AP x transverse). The aneurysm extends approximately 12 cm in craniocaudal length. The [place] iliac arteries are occluded bilaterally. 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 A right axillofemoral bypass is patent. The right superficial femoral artery bypass is patent. The [place] right SFA is occluded. Imaged portions of the left common femoral and superficial femoral arteries are occluded. 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 The celiac trunk is patent. These findings are unchanged from 02/14/2025. Bowel: There is no bowel obstruction. The appendix is not visualized. Peritoneum: There is no intraperitoneal free air or abdominal ascites. Lymphadenopathy: None. Pelvic viscera: The bladder, uterus, and adnexa are normal as imaged. Skeletal structures: The skeletal structures are osteopenic. There is a chronic compression deformity of T12. There has been progressive loss of height of the T12 vertebral body as compared to 02/14/2025. Moderate lumbosacral spondylosis is observed and there is mild scoliosis. No lytic or blastic lesions are seen. IMPRESSION: 1. No acute infectious or inflammatory findings are identified in the abdomen or pelvis. 2. Cardiomegaly and severe emphysema. 3. Aortic occlusion plugs are in place with thrombosis of a large abdominal aortic aneurysm. The aneurysm sac measures 5.7 x 6.8 cm. 4. A right axillofemoral bypass is patent. 5. Multiple vessel occlusions as above. This is similar to the 02/14/2025 examination. 6. Cholelithiasis. 7. Additional findings as above. ACT 112: Negative or not required by law. Electronically signed by: Conor White M.D. 06/15/2025 3:35 PM Supervising Physician Co-Signing Physician Notes Patient seen and examined at bedside. Patient appears comfortable. Has been having denisse red blood per rectum for past few days. [place] very fatigued and lightheaded this morning so came to hospital. Denies black stool. In the ED, tachycardic with irregular rhythm, Hgb of 7.1 1 unit of blood ordered. CT abdomen/pelvis without significant acute changes. Rectal exam by Gabriela Youngblood PA-C revealed maroon stool. Presentation consistent with acute blood loss anemia and likely active lower GI bleeding. GI consult, appreciate recs. Trend Hgb q12hrs. 2 IV access sites. Will likely need colonoscopy vs. sigmoidoscopy if bleeding continues. I have seen and discussed the case with the collaborating advanced practitioner. I agree with the above H&P. I have reviewed and confirmed the patients medical history, the findings on physical examination, and the patients diagnosis and treatment plan with Gabriela Youngblood PA-C and agree with the information documented. I spent a total of 25 minutes coordinating, documenting, and providing care for this patient excluding time spent in the performance of separately billed services. All of the aforementioned completed outside of collaborating with the assigned advanced practitioner for a full treatment plan. I have reviewed the advanced practitioner's documentation, and I agree with, and take responsibility for the plan of care
[2025-06-15] MEDS ORDERED: LEVALBUTEROL 1.25 MG/3 ML NEB NEB PRN (18:44)
[2025-06-15] MEDS ORDERED: ACETAMINOPHEN 325 MG TAB PO PRN (18:44)
[2025-06-15] MEDS ORDERED: ALUMINUM/MAGNESIUM SUSP 30 ML UDC PO PRN (18:44)
--- NOTE | 2025-06-15 19:33 | Electrocardiogram Report ---
Test Reason : Blood Pressure : */* mmHG Vent. Rate : 113 BPM Atrial Rate : * BPM P-R Int : * ms QRS Dur : 56 ms QT Int : 306 ms P-R-T Axes : * 57 -79 degrees QTcB Int : 419 ms Atrial fibrillation with rapid ventricular response with premature ventricular or aberrantly conducte d complexes Septal infarct , age undetermined Nonspecific ST and T wave abnormality Abnormal ECG When compared with ECG of 16-Feb-2025 05:38, Septal infarct is now Present ST now depressed in Inferior leads Nonspecific T wave abnormality has replaced inverted T waves in Lateral leads Confirmed by Diaz Gonzalez ([id number]) on 06/15/2025 7:33:30 PM Referred By: Arturo Bermudez Confirmed By: Diaz Gonzalez
[2025-06-15] MEDS: FUROSEMIDE 40 MG TAB PO SCH (21:52)
[2025-06-15] MEDS: METOPROLOL TARTRATE 50 MG TAB PO SCH (21:52)
[2025-06-15] MEDS: ATORVASTATIN 40 MG TAB PO SCH (21:53)
[2025-06-15] MEDS: PANTOprazole 40 MG/10 ML SYR IV SCH (21:54)
[2025-06-15] MEDS: POTASSIUM CHLORIDE CRTAB 20 MEQ TABCR PO SCH (22:00)
[2025-06-16 00:47] LABS: Hematocrit (blood only) 21.0 % (37.0-47.0); Hematocrit (blood only) 21.7 % (37.0-47.0); Hemoglobin 7.2 g/dL (12.0-16.0); Mean Corpuscular Hemoglobin 30.0 pg (25.0-34.0); Mean Corpuscular Volume 90.4 fL (80.0-100.0); Platelet Count 249 K/uL (130-400); RDW Standard Deviation 50.8 fL (36.4-46.3); Red Blood Count 2.40 M/uL (4.20-5.40); White Blood Count 6.89 K/ul (4.8-10.8)
[2025-06-16 05:45] LABS: Anion Gap 8.0 (3-11); Blood Urea Nitrogen 18.0 mg/dl (6-23); Calcium 8.1 mg/dl (8.6-10.3); Carbon Dioxide 24.0 mmol/L (21-32); Chloride 107.0 mmol/L (98-107); Creatinine Clr Calc Pharmacy 46.4 ml/min; Glucose 114.0 mg/dl (70-99(Fasting)); Potassium 3.2 mmol/L (3.5-5.1); Sodium 139.0 mmol/L (136-145)
[2025-06-16] MEDS: UMECLIDINIUM/VILANTEROL 62.5/25MCG 7 PUFFS/INHALER INH SCH (08:26)
[2025-06-16] MEDS: ISOSORBIDE MONO EXTENDED REL 30 MG TABCR PO SCH (08:26)
[2025-06-16] MEDS: FLUTICASONE FUROATE 100MCG 14 PUFFS/INHALER INH SCH (08:27)
[2025-06-16] MEDS ORDERED: FERROUS SULFATE 325 MG TAB PO SCH (09:00)
[2025-06-16] MEDS ORDERED: NON-FORMULARY MEDICATION (Fluticasone-Umeclidin-Vilanter [Trelegy Ellipta] 100-62.5-25 mcg INH SCH (09:00)
--- NOTE | 2025-06-16 09:08 | Gastrointestinal Consultation ---
Date of Consultation June 16, 2025 Assessment & Plan (1) GI bleed: Clinical picture consistent with lower GI bleed. Differential diagnosis includes diverticular bleeding in light of history of diverticulosis, ischemic colitis in light of history of peripheral vascular disease as well as anorectal etiology. Suspect anorectal in light of the fact that the bleeding occurs with bowel movements. Recommend colonoscopy once medically cleared. Can have a low residue diet today since she has had no further bleeding okay to proceed with colonoscopy on Wednesday should start clear liquid diet on Wednesday morning. History of Present Illness Reason for Consultation: Rectal bleeding Attending Physician: Dexter Lewis MD History of Present Illness Patient was in usual state of health until 3 days prior to admission when she noted sudden onset of bright red blood per rectum with bowel movements. Bleeding only occurred when having a bowel movement. She had some lower abdominal discomfort which was not severe. She had a remote history of rectal bleeding in the distant past. She has had a prior colonoscopy which showed dive rticulosis. She denies any recent change in bowel habits nausea vomiting weight loss or anorexia. Has a longstanding history of peripheral vascular disease status post bypass surgeries as well as an [id number] amputation. He has a known large intra-abdominal aortic aneurysm. She is on Xarelto. Allergies Allergy/AdvReac Type Severity Reaction Status Date / Time diphenhydramine AdvReac Intermediate heart Verified 01/04/25 10:36 racing hctz AdvReac hyponatremi Uncoded 06/15/25 16:07 a Home Medications Medication Instructions Recorded Confirmed Type atorvastatin 40 mg tablet (Lipitor) 40 mg PO QPM 03/24/18 06/15/25 History multivitamin 1 tab PO QAM 03/24/18 06/15/25 History furosemide 40 mg tablet (Lasix) 40 mg PO BID 08/06/19 06/15/25 History aspirin 81 mg tablet,delayed 81 mg PO QAM #0 tabs 08/07/19 06/15/25 Rx release rivaroxaban 20 mg tablet (Xarelto) 20 mg PO HS #0 tabs 08/07/19 06/15/25 Rx cilostazol 100 mg tablet 100 mg PO BID 03/06/20 06/15/25 History omega 3-lhc-qlx-fish oil 300 1 cap PO QAM 02/20/23 06/15/25 History mg-1,000 mg capsule (Fish Oil) isosorbide mononitrate 30 mg 30 mg PO QAM #30 tabs 02/22/23 06/15/25 Rx tablet,extended release 24 hr calcium carbonate (Calcium 600) 600 mg PO DAILY 07/14/23 06/15/25 History nitroglycerin 0.4 mg sublingual 0.4 mg sublingual Q5M PRN Chest 07/12/24 06/15/25 Rx tablet (Nitrostat) Pain #20 tabs potassium chloride 20 mEq 20 meq PO BID 01/30/25 06/15/25 History tablet,extended release ferrous sulfate 325 mg (65 mg 325 mg PO DAILY 06/15/25 06/15/25 History iron) tablet,delayed release fluticasone fur. 100 mcg-umeclid 1 inh inhalation DAILY 06/15/25 06/15/25 History 62.5 mcg-vilant 25 mcg inhalat.powder (Trelegy Ellipta) metoprolol tartrate 50 mg tablet 50 mg PO BID 06/15/25 06/15/25 History Patient History Medical History Prediabetes Wheelchair dependence History of recent hospitalization 01/2023 [facility] - chest pain On home O2 qHS On anticoagulant therapy Lower GI bleed HISTORY OF FROM HEMORRHOID Peripheral vascular disease Osteoarthritis Hypertension controlled, stable per pt Hyperlipidemia Surgical History S/P insertion of iliac artery stent History of cardiac cath 02/22/23 - [facility] - CP - no stents. History of esophagogastroduodenoscopy (EGD) History of incision and drainage left inner thigh 02/08/2020: LMA#4 atraumatic x 1. No issues per anesthesia postop progress note. 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-DOES NOT WEAR PROSTHESIS History of appendectomy History of bilateral tubal ligation H/O breast surgery X 2-BENIGN LUMPECTOMY Previous back surgery BONE SPUR REMOVED Family History Son Family history of diabetes mellitus Other No family history of adverse response to anesthesia Social History Smoking Status: Former smoker Tobacco Type: Cigarettes Second Hand Exposure: No; Do You Dip or Chew Tobacco: No; Tobacco Cessation Education Requested by Patient: No Hx Alcohol Use: Yes Alcohol type: beer Hx Substance Use: No Preferred Language: Italian Communication Ability: Effective Political Geographer Required: No Beliefs That Will Affect Care: None marital status: Current Living Situation: Spouse Current Living Situation Comment: [facility] Other Information That Helps Us Care for You: No Feels Safe at Home: Yes Safety Concerns: Feels Safe At This Time Assistive Devices: Denture - Upper, Denture - Lower, Glasses, Walker and Wheelchair Review of Systems Review of Systems: No fever No chills No SOB No CP GI ROS as per HPI Physical Exam 2 Physical Exam: Eyes; anicteric HENT No masses Chest clear to A Cor S1, S2 physiologic Abd: softer nontender no masses Ext no edema Results & Data Vital Signs (Past 12 Hours) Vital Signs Temp Pulse Pulse Resp BP BP Pulse Ox 06/16/25 08:07 36.6 C 80 17 128/73 95 06/16/25 03:50 36.4 C L 75 18 126/69 95 06/15/25 22:47 37 C 88 18 124/78 98 06/15/25 22:46 37 C 88 18 124/70 98 O2 Del Method O2 Flow Rate 06/16/25 08:07 Nasal Cannula 2 06/16/25 03:50 Nasal Cannula 2 06/15/25 22:47 Nasal Cannula 2 06/15/25 22:46 2 Laboratory Results Laboratory Results - last 48 hr 06/15/25 06/15/25 06/15/25 14:00 14:04 14:11 WBC 9.21 RBC 2.31 L Hgb 7.1 L POC Hgb 7.5 L Hct 21.7 L POC Hct 22 L MCV 93.9 MCH 30.7 MCHC 32.7 RDW Std Deviation 52.1 H RDW Coeff of Jean 15.3 H Plt Count 338 MPV 9.7 Immature Gran % (Auto) 0.3 Neut % (Auto) 84.1 Lymph % (Auto) 8.3 Caswell % (Auto) 6.8 Eos % (Auto) 0.0 Baso % (Auto) 0.5 Neut # (Auto) 7.74 H Lymph # (Auto) 0.76 L Caswell # (Auto) 0.63 H Eos # (Auto) 0.00 Baso # (Auto) 0.05 Immature Gran # (Auto) 0.03 Polychromasia 1+ Ovalocytes 1+ PT 12.5 H INR 1.2 H APTT 22 PTT Ratio 0.8 POC Sodium 139 Sodium 138 POC Potassium 3.9 Potassium 3.9 POC Chloride 104 Chloride 104 Carbon Dioxide 25 POC Total CO2 22 L Anion Gap 9 POC Anion Gap 18.0 POC BUN 23 H BUN 25 H Creatinine 0.90 POC Creatinine 1.1 Est Cr Clr Drug Dosing Not Reportable eGFR 63.43 BUN/Creatinine Ratio 27.8 H Glucose 130 H POC Glucose (other) 123 H Calcium 9.1 POC Ioniz Calcium Chari 1.12 Total Bilirubin 0.5 AST 19 ALT 14 Alkaline Phosphatase 55 Troponin I High Sens 13.5 Total Protein 7.0 Albumin 3.8 Globulin 3.2 Albumin/Globulin Ratio 1.2 Blood Type A Positive Antibody Screen NEGATIVE Crossmatch See Detail 06/16/25 06/16/25 06/16/25 00:17 00:17 00:17 WBC 6.89 RBC 2.40 L Hgb 7.2 L 7.2 L POC Hgb Hct 21.7 L 21.0 L POC Hct MCV 90.4 MCH 30.0 MCHC 33.2 RDW Std Deviation 50.8 H RDW Coeff of Jean 15.4 H Plt Count 249 MPV 9.6 Immature Gran % (Auto) Neut % (Auto) Lymph % (Auto) Caswell % (Auto) Eos % (Auto) Baso % (Auto) Neut # (Auto) Lymph # (Auto) Caswell # (Auto) Eos # (Auto) Baso # (Auto) Immature Gran # (Auto) Polychromasia Ovalocytes PT INR APTT PTT Ratio POC Sodium Sodium POC Potassium Potassium POC Chloride Chloride Carbon Dioxide POC Total CO2 Anion Gap POC Anion Gap POC BUN BUN Creatinine POC Creatinine Est Cr Clr Drug Dosing eGFR BUN/Creatinine Ratio Glucose POC Glucose (other) Calcium POC Ioniz Calcium Chari Total Bilirubin AST ALT Alkaline Phosphatase Troponin I High Sens Total Protein Albumin Globulin Albumin/Globulin Ratio Blood Type Antibody Screen Crossmatch 06/16/25 05:04 WBC RBC Hgb POC Hgb Hct POC Hct MCV MCH MCHC RDW Std Deviation RDW Coeff of Jean Plt Count MPV Immature Gran % (Auto) Neut % (Auto) Lymph % (Auto) Caswell % (Auto) Eos % (Auto) Baso % (Auto) Neut # (Auto) Lymph # (Auto) Caswell # (Auto) Eos # (Auto) Baso # (Auto) Immature Gran # (Auto) Polychromasia Ovalocytes PT INR APTT PTT Ratio POC Sodium Sodium 139 POC Potassium Potassium 3.2 L POC Chloride Chloride 107 Carbon Dioxide 24 POC Total CO2 Anion Gap 8 POC Anion Gap POC BUN BUN 18 Creatinine 0.76 POC Creatinine Est Cr Clr Drug Dosing 46.4 eGFR 77.70 BUN/Creatinine Ratio 23.7 H Glucose 114 H POC Glucose (other) Calcium 8.1 L POC Ioniz Calcium Chari Total Bilirubin AST ALT Alkaline Phosphatase Troponin I High Sens Total Protein Albumin Globulin Albumin/Globulin Ratio Blood Type Antibody Screen Crossmatch Diagnostic Findings Chest X-Ray 06/15/25 13:28 XR chest 1V portable HISTORY: 84 years-old Female bleeding acute shortness of breath COMPARISON: 02/18/2025 TECHNIQUE: AP view of the chest FINDINGS: Cardiac silhouette is enlarged. Atherosclerosis of the aorta. Mild chronic interstitial coarsening. No pneumothorax or overt pulmonary edema. Subsegmental bibasilar densities with blunting of the costophrenic angles. Bones appear grossly intact. IMPRESSION: 1. Cardiomegaly without overt pulmonary edema. 2. Mild bibasilar atelectasis. ACT 112: Negative or not required by law. The above report was generated using voice recognition software. It may contain grammatical, syntax or spelling errors. Electronically signed by: Bienvenido Cantor M.D. 06/15/2025 2:41 PM Abdomen/Pelvis CT 06/15/25 13:30 CT SCAN OF THE ABDOMEN AND PELVIS WITH IV CONTRAST CLINICAL HISTORY: GI bleeding COMPARISON STUDY: Abdominal CT dated 02/14/2025 TECHNIQUE: Following the IV administration of 94 cc of Optiray 320, CT scan of the abdomen and pelvis is performed from the lung bases to the proximal femora. Images are reviewed in the axial, sagittal, and coronal planes. IV contrast was administered without complication. A dose lowering technique was utilized adhering to the principles of ALARA. CT DOSE: 394.06 mGy.cm FINDINGS: Lung bases: The heart is enlarged and without pericardial effusion. The coronary arteries are densely calcified. Advanced emphysematous changes seen at the lung bases. There is bibasilar scarring/atelectasis. No airspace consolidation or pleural effusion is identified. Liver: The contrast-enhanced liver is normal in size, contour, and attenuation. There is mild to moderate intrahepatic biliary ductal dilatation. The hepatic veins and portal veins are patent. Scattered hepatic cysts measure up to 11 mm. Gallbladder: There are calcified gallstones without CT evidence of acute cholecystitis. Spleen: Normal in size and attenuation. Pancreas: Moderately atrophic and grossly unremarkable. Adrenal glands: Unremarkable. Kidneys: The contrast enhanced kidneys are normal in size and without hydr onephrosis. The kidneys enhance symmetrically. There is extensive renovascular calcification. Abdominal vasculature: There is advanced atherosclerotic calcification of the abdominal aorta. The proximal abdominal measures patent. Vascular embolization plugs are seen in the proximal abdominal aorta, and there is a thrombosed abdominal aortic aneurysm which measures 5.7 x 6.8 cm (AP x transverse). The aneurysm extends approximately 12 cm in craniocaudal length. The [place] iliac arteries are occluded bilaterally. 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 A right axillofemoral bypass is patent. The right superficial femoral artery bypass is patent. The [place] right SFA is occluded. Imaged portions of the left common femoral and superficial femoral arteries are occluded. 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 The celiac trunk is patent. These findings are unchanged from 02/14/2025. Bowel: There is no bowel obstruction. The appendix is not visualized. Peritoneum: There is no intraperitoneal free air or abdominal ascites. Lymphadenopathy: None. Pelvic viscera: The bladder, uterus, and adnexa are normal as imaged. Skeletal structures: The skeletal structures are osteopenic. There is a chronic compression deformity of T12. There has been progressive loss of height of the T12 vertebral body as compared to 02/14/2025. Moderate lumbosacral spondylosis is observed and there is mild scoliosis. No lytic or blastic lesions are seen. IMPRESSION: 1. No acute infectious or inflammatory findings are identified in the abdomen or pelvis. 2. Cardiomegaly and severe emphysema. 3. Aortic occlusion plugs are in place with thrombosis of a large abdominal aortic aneurysm. The aneurysm sac measures 5.7 x 6.8 cm. 4. A right axillofemoral bypass is patent. 5. Multiple vessel occlusions as above. This is similar to the 02/14/2025 examination. 6. Cholelithiasis. 7. Additional findings as above. ACT 112: Negative or not required by law. Electronically signed by: Conor White M.D. 06/15/2025 3:35 PM PG Care Time/CCT Total # of Minutes Spent Total Time Spent with Patient: Total time spent is greater than 50% in coordination of care (as documented) at patient's floor/unit and/or counseling patient: Coding Level of Care Code 69360 INT INP/OBS CARE 3/75MIN Diagnoses GI bleed K92.2
--- NOTE | 2025-06-16 09:45 | Electrocardiogram Report ---
Test Reason : Blood Pressure : */* mmHG Vent. Rate : 74 BPM Atrial Rate : * BPM P-R Int : * ms QRS Dur : 62 ms QT Int : 368 ms P-R-T Axes : * 9 -78 degrees QTcB Int : 408 ms Atrial fibrillation with premature ventricular or aberrantly conducted complexes Low voltage QRS Septal infarct (cited on or before 15-Jun-2025) Abnormal ECG When compared with ECG of 15-Jun-2025 14:16, Vent. rate has decreased by 39 bpm Confirmed by Adriel Ayala ([id number]) on 06/16/2025 9:45:02 AM Referred By: Arturo Bermudez Confirmed By: Adriel Ayala
--- NOTE | 2025-06-16 13:08 | Hospitalist Progress Note ---
Date of Service June 16, 2025 Assessment & Plan (1) GI bleed: Plan: Patient is 84 year old female with PMH HTN, HLD, PAF, PVD s/p left AKA, s/p bilateral iliac artery stenting, s/p femoral to posterior tibial bypass, AAA 5 cm s/p embolization 06/2021, CAD s/p PCI stent to circumflex obtuse marginal artery in 2004, COPD presented to ER with c/o rectal bleeding with BMs x 3 days. 01/2025 admission for sepsis, proctocolitis and required 1 unit PRBC transfusion. 03/30/2023 colonoscopy: Poor bowel prep, 8 mm polyp found in cecum, diverticula sigmoid colon, internal hemorrhoids 03/30/2023 EGD: Normal examined esophagus, stomach and duodenum Acute on chronic anemia Lower GI bleed Hgb: 7.1 on admission; Was 11 on 05/30/2025 and 10 on 03/12/2025 BUN: 25, Cr: 0.9 Baseline creatinine ~0.8 CT abd/pelvis: No acute infectious or inflammatory findings are identified in the abdomen or pelvis. Cardiomegaly and severe emphysema. Aortic occlusion plugs are in place with thrombosis of a large abdominal aortic aneurysm. The aneurysm sac measures 5.7 x 6.8 cm. A right axillofemoral bypass is patent. Multiple vessel occlusions as above. This is similar to the 02/14/2025 examination. Status post 1 unit of packed RBC Continue to hold Xarelto, aspirin. Continue to monitor for bleeding. Transfuse if hemoglobin is less than 7 g/dL GI consulted for comanagement; possible colonoscopy on Wednesday. Will obtain r epeat echocardiogram. Patient appears compensated from medical/cardiac standpoint to undergo colonoscopy. #Takotsubo cardiomyopathy #CAD Hospitalization 02/14/2025-02/24/2025 for septic shock, E. 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 Bolanos, vascular surgery CTAP today: Aortic occlusion plugs are in place with thrombosis of a large abdominal aortic aneurysm. The aneurysm sac measures 5.7 x 6.8 cm. A right axillofemoral bypass is patent.. Multiple vessel occlusions. This is similar to the 02/14/2025 examination. Continuing cilostazol for now. Continue atorvastatin Holding Xarelto, aspirin as per above --> resume as able #COPD Evidence emphysema on prior CTs Currently without evidence of exacerbation Continue home inhaler Xopenex neb prn Supplemental oxygen as needed with goal O2 sat 88-92% #Nocturnal hypoxia Continue home 2L oxygen HS #Alcohol use Drinks 1-2 beers a day Denies history ETOH withdrawal DVT Prophylaxis SCDs for now Admit PCU DNR/DNI as per discussion with pt Follows with Dr Bermudez for routine care Time spent evaluating patient, direct bedside care, chart review, placing orders, interpretation of diagnostic studies, discussion with consultants, patient, and family members, as well as other required patient management activities is 50 minutes Please note the above document was generated using voice recognition software. It may contain grammatical, syntax or spelling errors. Any formal questions or concerns about the content, text or information contained within the body of this dictation should be directly addressed to the provider for clarification Admission and Anticipated Discharge Date Admission Date: June 15, 2025 Subjective Patient seen and examined at bedside. She is comfortable; not in distress. Denies any bowel movement since she has been admitted here. Review of Systems Review of Systems: All systems reviewed & are unremarkable except as noted in Subjective Physical Exam Physical Exam: Constitutional: WD/WN, vitals as above, NAD, sitting up in bed, pleasant, conversing easily Respiratory: normal respiratory effort, lungs clear to auscultation, no wheeze, rales, rhonchi. Normal insp/exp effort, no accessory muscle use Cardiovascular: Irregular, no murmur, no edema Vessels: no JVD or carotid bruit Chest: normal inspection of chest Abdomen: soft, non-tender, not distended Musculoskeletal: Left above-knee amputation neurologic: PERRL, EOMI, accommodation nl, no face palsy, no dysarthria CN's II- XI intact bilaterally and moves all extremities Results & Data Results & Data Vital Signs (Past 12 Hours) Vital Signs Temp Pulse Resp BP Pulse Ox O2 Del Method O2 Flow Rate 06/16/25 11:39 36.5 C 61 18 101/48 L 99 Nasal Cannula 2 06/16/25 08:07 36.6 C 80 17 128/73 95 Nasal Cannula 2 06/16/25 03:50 36.4 C L 75 18 126/69 95 Nasal Cannula 2
--- NOTE | 2025-06-16 16:10 | XCELERA ---
[id number]
[2025-06-16 16:17] LABS: Hematocrit (blood only) 22.0 % (37.0-47.0); Hemoglobin 7.5 g/dL (12.0-16.0)
[2025-06-16] MEDS: LORazepam 0.5 MG TAB PO STA (22:01)
[2025-06-17] MEDS ORDERED: Nursing to Pharmacy Communication SCH (04:00)
[2025-06-17 07:27] LABS: Hematocrit (blood only) 23.7 % (37.0-47.0); Hemoglobin 7.6 g/dL (12.0-16.0); Immature Granulocytes # (auto) 0.06 K/uL (0.01-0.20); Immature Granulocytes % (auto) 0.7 %; Mean Corpuscular Hemoglobin 29.8 pg (25.0-34.0); Mean Corpuscular Volume 92.9 fL (80.0-100.0); Platelet Count 261 K/uL (130-400); RDW Standard Deviation 53.6 fL (36.4-46.3); Red Blood Count 2.55 M/uL (4.20-5.40); White Blood Count 9.13 K/ul (4.8-10.8)
[2025-06-17 07:44] LABS: Anion Gap 7.0 (3-11); Blood Urea Nitrogen 22.0 mg/dl (6-23); Calcium 8.1 mg/dl (8.6-10.3); Carbon Dioxide 25.0 mmol/L (21-32); Chloride 106.0 mmol/L (98-107); Creatinine Clr Calc Pharmacy 40.5 ml/min; Glucose 130.0 mg/dl (70-99(Fasting)); Potassium 3.3 mmol/L (3.5-5.1); Sodium 138.0 mmol/L (136-145)
[2025-06-17 07:57] LABS: Polychromasia 1+
[2025-06-17] MEDS: FUROSEMIDE 40 MG TAB PO SCH (08:48)
--- NOTE | 2025-06-17 09:23 | Gastroenterology Progress Note ---
Date of Service June 17, 2025 Assessment & Plan (1) GI bleed: Plan: Suspect lower GI bleed source either diverticulosis, ischemia or anorectal etiology. Will proceed with colonoscopy in AM. Admission and Anticipated Discharge Date Admission Date: June 15, 2025 Subjective Denies shortness of breath chest pain or abdominal pain. No overt bleeding today. Physical Exam Physical Exam: No acute distress Respiratory rate regular Cardiac rhythm regular Abdomen soft nontender Results & Data Results & Data Vital Signs (Past 12 Hours) Vital Signs Temp Pulse Resp BP Pulse Ox O2 Del Method O2 Flow Rate 06/17/25 08:38 36.6 C 93 H 18 115/55 L 92 Room Air 06/17/25 03:42 36.5 C 71 16 157/85 H 99 Nasal Cannula 2 06/16/25 23:16 36.5 C 76 16 118/61 97 Nasal Cannula 2 Laboratory Results Laboratory Results - last 48 hr 06/15/25 06/15/25 06/15/25 14:00 14:04 14:11 WBC 9.21 RBC 2.31 L Hgb 7.1 L POC Hgb 7.5 L Hct 21.7 L POC Hct 22 L MCV 93.9 MCH 30.7 MCHC 32.7 RDW Std Deviation 52.1 H RDW Coeff of Jean 15.3 H Plt Count 338 MPV 9.7 Immature Gran % (Auto) 0.3 Neut % (Auto) 84.1 Lymph % (Auto) 8.3 Giles % (Auto) 6.8 Eos % (Auto) 0.0 Baso % (Auto) 0.5 Neut # (Auto) 7.74 H Lymph # (Auto) 0.76 L Giles # (Auto) 0.63 H Eos # (Auto) 0.00 Baso # (Auto) 0.05 Immature Gran # (Auto) 0.03 Polychromasia 1+ Ovalocytes 1+ PT 12.5 H INR 1.2 H APTT 22 PTT Ratio 0.8 POC Sodium 139 Sodium 138 POC Potassium 3.9 Potassium 3.9 POC Chloride 104 Chloride 104 Carbon Dioxide 25 POC Total CO2 22 L Anion Gap 9 POC Anion Gap 18.0 POC BUN 23 H BUN 25 H Creatinine 0.90 POC Creatinine 1.1 Est Cr Clr Drug Dosing Not Reportable eGFR 63.43 BUN/Creatinine Ratio 27.8 H Glucose 130 H POC Glucose (other) 123 H Calcium 9.1 POC Ioniz Calcium Chari 1.12 Total Bilirubin 0.5 AST 19 ALT 14 Alkaline Phosphatase 55 Troponin I High Sens 13.5 Total Protein 7.0 Albumin 3.8 Globulin 3.2 Albumin/Globulin Ratio 1.2 Blood Type A Positive Antibody Screen NEGATIVE Crossmatch See Detail 06/16/25 06/16/25 06/16/25 00:17 00:17 00:17 WBC 6.89 RBC 2.40 L Hgb 7.2 L 7.2 L POC Hgb Hct 21.7 L 21.0 L POC Hct MCV 90.4 MCH 30.0 MCHC 33.2 RDW Std Deviation 50.8 H RDW Coeff of Jean 15.4 H Plt Count 249 MPV 9.6 Immature Gran % (Auto) Neut % (Auto) Lymph % (Auto) Giles % (Auto) Eos % (Auto) Baso % (Auto) Neut # (Auto) Lymph # (Auto) Giles # (Auto) Eos # (Auto) Baso # (Auto) Immature Gran # (Auto) Polychromasia Ovalocytes PT INR APTT PTT Ratio POC Sodium Sodium POC Potassium Potassium POC Chloride Chloride Carbon Dioxide POC Total CO2 Anion Gap POC Anion Gap POC BUN BUN Creatinine POC Creatinine Est Cr Clr Drug Dosing eGFR BUN/Creatinine Ratio Glucose POC Glucose (other) Calcium POC Ioniz Calcium Chari Total Bilirubin AST ALT Alkaline Phosphatase Troponin I High Sens Total Protein Albumin Globulin Albumin/Globulin Ratio Blood Type Antibody Screen Crossmatch 06/16/25 06/16/25 06/17/25 05:04 15:53 06:50 WBC 9.13 RBC 2.55 L Hgb 7.5 L 7.6 L POC Hgb Hct 22.0 L 23.7 L POC Hct MCV 92.9 MCH 29.8 MCHC 32.1 RDW Std Deviation 53.6 H RDW Coeff of Jean 15.9 H Plt Count 261 MPV 9.8 Immature Gran % (Auto) 0.7 Neut % (Auto) 81.8 Lymph % (Auto) 7.4 Giles % (Auto) 8.9 Eos % (Auto) 0.7 Baso % (Auto) 0.5 Neut # (Auto) 7.47 H Lymph # (Auto) 0.68 L Giles # (Auto) 0.81 H Eos # (Auto) 0.06 Baso # (Auto) 0.05 Immature Gran # (Auto) 0.06 Polychromasia 1+ Ovalocytes PT INR APTT PTT Ratio POC Sodium Sodium 139 138 POC Potassium Potassium 3.2 L 3.3 L POC Chloride Chloride 107 106 Carbon Dioxide 24 25 POC Total CO2 Anion Gap 8 7 POC Anion Gap POC BUN BUN 18 22 Creatinine 0.76 0.87 POC Creatinine Est Cr Clr Drug Dosing 46.4 40.5 eGFR 77.70 66.07 BUN/Creatinine Ratio 23.7 H 25.3 H Glucose 114 H 130 H POC Glucose (other) Calcium 8.1 L 8.1 L POC Ioniz Calcium Chari Total Bilirubin AST ALT Alkaline Phosphatase Troponin I High Sens Total Protein Albumin Globulin Albumin/Globulin Ratio Blood Type Antibody Screen Crossmatch PG Care Time/CCT Total # of Minutes Spent Total Time Spent with Patient: Total time spent is greater than 50% in coordination of care (as documented) at patient's floor/unit and/or counseling patient: Coding Level of Care Code 11537 SUB INP/OBS CARE 2/35MIN Diagnoses GI bleed K92.2
--- NOTE | 2025-06-17 12:41 | Hospitalist Progress Note ---
Date of Service June 17, 2025 Assessment & Plan (1) GI bleed: Plan: Patient is 84 year old female with PMH HTN, HLD, PAF, PVD s/p left AKA, s/p bilateral iliac artery stenting, s/p femoral to posterior tibial bypass, AAA 5 cm s/p embolization 06/2021, CAD s/p PCI stent to circumflex obtuse marginal artery in 2004, COPD presented to ER with c/o rectal bleeding with BMs x 3 days. 01/2025 admission for sepsis, proctocolitis and required 1 unit PRBC transfusion. 03/30/2023 colonoscopy: Poor bowel prep, 8 mm polyp found in cecum, diverticula sigmoid colon, internal hemorrhoids 03/30/2023 EGD: Normal examined esophagus, stomach and duodenum Acute on chronic anemia Lower GI bleed Hgb: 7.1 on admission; Was 11 on 05/30/2025 and 10 on 03/12/2025 BUN: 25, Cr: 0.9 Baseline creatinine ~0.8 CT abd/pelvis: No acute infectious or inflammatory findings are identified in the abdomen or pelvis. Cardiomegaly and severe emphysema. Aortic occlusion plugs are in place with thrombosis of a large abdominal aortic aneurysm. The aneurysm sac measures 5.7 x 6.8 cm. A right axillofemoral bypass is patent. Multiple vessel occlusions as above. This is similar to the 02/14/2025 examination. Status post 1 unit of packed RBC Continue to hold Xarelto, aspirin. Continue to monitor for bleeding. Transfuse if hemoglobin is less than 7 g/dL GI consulted for comanagement; possible colonoscopy today. Repeat echocardio gram shows improved EF of 50 to 55% Patient appears compensated from medical/cardiac standpoint to undergo colonoscopy. #Takotsubo cardiomyopathy #CAD Hospitalization 02/14/2025-02/24/2025 for septic shock, E. coli bacteremia, Takotsubo cardiomyopathy 02/15/2025 echo: EF: 25-30% 02/16/2025 echo: EF: 30-35% Echo from 05/2025- EF improved to 50-55%. 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 Bolanos, vascular surgery CTAP on admission: Aortic occlusion plugs are in place with thrombosis of a large abdominal aortic aneurysm. The aneurysm sac measures 5.7 x 6.8 cm. A right axillofemoral bypass is patent.. Multiple vessel occlusions. This is similar to the 02/14/2025 examination. Continuing cilostazol for now. Continue atorvastatin Holding Xarelto, aspirin as per above --> Discussed with vascular if patient can be discontinued from aspirin and continue Xarelto. #COPD Evidence emphysema on prior CTs Currently without evidence of exacerbation Continue home inhaler Xopenex neb prn Supplemental oxygen as needed with goal O2 sat 88-92% #Nocturnal hypoxia Continue home 2L oxygen HS #Alcohol use Drinks 1-2 beers a day Denies history ETOH withdrawal DVT Prophylaxis SCDs for now Admit PCU DNR/DNI as per discussion with pt Follows with Dr Bermudez for routine care Time spent evaluating patient, direct bedside care, chart review, placing orders, interpretation of diagnostic studies, discussion with consultants, patient, and family members, as well as other required patient management activities is 50 minutes Please note the above document was generated using voice recognition software. It may contain grammatical, syntax or spelling errors. Any formal questions or concerns about the content, text or information contained within the body of this dictation should be directly addressed to the provider for clarification Admission and Anticipated Discharge Date Admission Date: June 15, 2025 Subjective Patient seen and examined at bedside. No overnight lower GI bleed noted. Had bowel movement without any blood. Blood pressure remains stable Hemoglobin also stable around 7.5. Review of Systems Review of Systems: All systems reviewed & are unremarkable except as noted in Subjective Physical Exam Physical Exam: Constitutional: WD/WN, vitals as above, NAD, sitting up in bed, pleasant, conversing easily Respiratory: normal respiratory effort, lungs clear to auscultation, no wheeze, rales, rhonchi. Normal insp/exp effort, no accessory muscle use Cardiovascular: Irregular, no murmur, no edema Vessels: no JVD or carotid bruit Chest: normal inspection of chest Abdomen: soft, non-tender, not distended Musculoskeletal: Left above-knee amputation neurologic: PERRL, EOMI, accommodation nl, no face palsy, no dysarthria CN's II- XI intact bilaterally and moves all extremities Results & Data Results & Data Vital Signs (Past 12 Hours) Vital Signs Temp Pulse Pulse Resp BP Pulse Ox O2 Del Method 06/17/25 10:58 99 H 06/17/25 08:38 36.6 C 93 H 18 115/55 L 92 Room Air 06/17/25 03:42 36.5 C 71 16 157/85 H 99 Nasal Cannula O2 Flow Rate 06/17/25 10:58 06/17/25 08:38 06/17/25 03:42 2
[2025-06-17] MEDS: LAVAGE SOLUTION 4000ML PO SCH (16:36)
[2025-06-18 06:07] LABS: Hematocrit (blood only) 27.0 % (37.0-47.0); Hemoglobin 8.5 g/dL (12.0-16.0); Immature Granulocytes # (auto) 0.02 K/uL (0.01-0.20); Immature Granulocytes % (auto) 0.3 %; Mean Corpuscular Hemoglobin 29.2 pg (25.0-34.0); Mean Corpuscular Volume 92.8 fL (80.0-100.0); Platelet Count 308 K/uL (130-400); RDW Standard Deviation 53.1 fL (36.4-46.3); Red Blood Count 2.91 M/uL (4.20-5.40); White Blood Count 7.09 K/ul (4.8-10.8)
--- NOTE | 2025-06-18 08:49 | Anesthesiology Consultation ---
Date of Service June 18, 2025 Assessment & Plan Chart Review Chart Review: Acceptable Risk for Surgery and Patient NOT seen in Pre Admission Testing Consults Requested none ASA ASA4 Proposed Anesthesia Anesthesia Type: MAC History Surgery Operation Date: 06/18/25 17:25 Proposed Procedures p Colonoscopy Dr. Dylan Richardson MD Height/Weight Height: 5 ft 3 in Weight: 48.2 kg Allergies Allergy/AdvReac Type Severity Reaction Status Date / Time diphenhydramine AdvReac Intermediate heart Verified 01/04/25 10:36 racing hctz AdvReac hyponatremi Uncoded 06/15/25 16:07 a Medications Home Medications Medication Instructions Recorded Confirmed Last Taken atorvastatin 40 mg tablet (Lipitor) 40 mg PO QPM 03/24/18 06/15/25 03/29/23 20:00 multivitamin 1 tab PO QAM 03/24/18 06/15/25 03/29/23 08:00 furosemide 40 mg tablet (Lasix) 40 mg PO BID 08/06/19 06/15/25 03/29/23 17:00 aspirin 81 mg tablet,delayed 81 mg PO QAM #0 tabs 08/07/19 06/15/25 03/29/23 08:00 release rivaroxaban 20 mg tablet (Xarelto) 20 mg PO HS #0 tabs 08/07/19 06/15/25 03/27/23 cilostazol 100 mg tablet 100 mg PO BID 03/06/20 06/15/25 03/27/23 omega 1-bev-csd-fish oil 300 1 cap PO QAM 02/20/23 06/15/25 03/29/23 08:00 mg-1,000 mg capsule (Fish Oil) isosorbide mononitrate 30 mg 30 mg PO QAM #30 tabs 02/22/23 06/15/25 03/30/23 04:30 tablet,extended release 24 hr calcium carbonate (Calcium 600) 600 mg PO DAILY 07/14/23 06/15/25 Unknown nitroglycerin 0.4 mg sublingual 0.4 mg sublingual Q5M PRN Chest 07/12/24 06/15/25 Unknown tablet (Nitrostat) Pain #20 tabs potassium chloride 20 mEq 20 meq PO BID 01/30/25 06/15/25 Unknown tablet,extended release ferrous sulfate 325 mg (65 mg 325 mg PO DAILY 06/15/25 06/15/25 Unknown iron) tablet,delayed release fluticasone fur. 100 mcg-umeclid 1 inh inhalation DAILY 06/15/25 06/15/25 Unknown 62.5 mcg-vilant 25 mcg inhalat.powder (Trelegy Ellipta) metoprolol tartrate 50 mg tablet 50 mg PO BID 06/15/25 06/15/25 Unknown Active Medications Generic Name Dose Route Start Last Admin Trade Name Dukeq PRN Reason Stop Dose Admin Atorvastatin Calcium 40 mg 06/15/25 21:00 06/17/25 20:37 Atorvastatin 40 Mg Tab PO 07/15/25 20:59 40 mg QPM RAYMOND Administration Cilostazol 100 mg 06/15/25 21:00 06/17/25 20:37 Cilostazol 100 Mg Tab PO 07/15/25 20:59 100 mg BID RAYMOND Administration Fluticasone Furoate 1 puffs 06/16/25 09:00 06/17/25 08:47 Fluticasone Furoate 100mcg 14 Puffs/Inhaler INH 07/16/25 08:59 1 puffs DAILY RAYMOND Administration Furosemide 40 mg 06/17/25 09:00 06/17/25 16:36 Furosemide 40 Mg Tab PO 07/17/25 08:59 40 mg BID17 RAYMOND Administration Pantoprazole Sodium 40 mg in 10 mls @ 5 mls/min 06/15/25 21:00 06/17/25 20:36 Protonix IV 07/15/25 20:59 5 mls/min BID RAYMOND Administration Isosorbide Mononitrate 30 mg 06/16/25 09:00 06/17/25 08:48 Isosorbide Merrick Extended Rel 30 Mg Tabcr PO 07/16/25 08:59 30 mg QAM RAYMOND Administration Metoprolol Tartrate 50 mg 06/15/25 21:00 06/17/25 20:36 Metoprolol Tartrate 50 Mg Tab PO 07/15/25 20:59 50 mg BID RAYMOND Administration Potassium Chloride 20 meq 06/15/25 21:00 06/17/25 20:36 Potassium Chloride Crtab 20 Meq Tabcr PO 07/15/25 20:59 20 meq BID RAYMOND Administration Umeclidinium/Vilanterol 1 puffs 06/16/25 09:00 06/17/25 08:47 Umeclidinium/Vilanterol 62.5/mcg 7 Puffs/Inhaler INH 07/16/25 08:59 1 puffs DAILY RAYMOND Administration Past Medical History Medical History Prediabetes Wheelchair dependence History of recent hospitalization 01/2023 [facility] - chest pain On home O2 qHS On anticoagulant therapy Lower GI bleed HISTORY OF FROM HEMORRHOID Peripheral vascular disease Osteoarthritis Hypertension controlled, stable per pt Hyperlipidemia COPD/severe emphysema ASCVD Ao/Carotids/CAD Anemia TR-severe -mod.-severe Hx/o A Fib Exercise / Class Metabolic Activity IV < 2 Limit ADL/Bedbound Past Family History Family History Son Family history of diabetes mellitus Other No family history of adverse response to anesthesia Past Surgical History Surgical History S/P insertion of iliac artery stent History of cardiac cath 02/22/23 - [facility] - CP - no stents. History of esophagogastroduodenoscopy (EGD) History of incision and drainage left inner thigh 02/08/2020: LMA#4 atraumatic x 1. No issues per anesthesia postop progress note. 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-DOES NOT WEAR PROSTHESIS History of appendectomy History of bilateral tubal ligation H/O breast surgery X 2-BENIGN LUMPECTOMY Previous back surgery BONE SPUR REMOVED Past Anesthesia History No Hx of Anesthesia Complications and No Family Hx of Anesthesia Complications History of PONV No Hx of PONV and No Hx of Motion Sickness Social History Smoking Status: Former smoker tobacco type: cigarettes Do You Dip or Chew Tobacco: No Hx Alcohol Use: Yes Alcohol type: beer alcohol intake frequency: 0-2 drinks per day Hx Substance Use: No substance use type: does not use Physical Exam Vital Signs Last Vital Signs Temp 36.7 C 06/18/25 08:19 Pulse 72 06/18/25 08:19 Resp 18 06/18/25 08:19 BP 135/57 L 06/18/25 08:19 Pulse Ox 91 06/18/25 08:19 O2 Del Method Room Air 06/18/25 08:19 O2 Flow Rate 2 06/18/25 02:52 Testing Laboratory Results 06/18/25 05:31 06/17/25 06:50 PT 12.5 Seconds (9.0-12.0) H 06/15/25 14:00 INR 1.2 (0.9-1.1) H 06/15/25 14:00 APTT 22 Seconds (21-31) 06/15/25 14:00 Blood Type A Positive 06/15/25 14:04 Antibody Screen NEGATIVE 06/15/25 14:04 Electrocardiogram Date: 06/16/25 Findings: + AFIB @ (@ 74;low voltage QRS) Chest X-Ray Date: 06/15/25 Findings: + atelectasis, + cardiomegaly and + atherosclerosis of thoracic aorta Echocardiogram Date: 06/16/25 EF: 50% LV Function: normal RWMA: + none Valvular Disease: + (mod-severe) and + MR (mod.) RV-mild dilatio;mild decrease Fxn;RV sys [id number] Other Testing 06/17/2021-carotid U/S-< 50% B/L
--- NOTE | 2025-06-18 09:44 | History & Physical Bridge Note ---
Date of Service June 18, 2025 History & Physical Bridge Note I have examined the patient, reviewed the History & Physical and in the interval since the performance of the History & Physical I have noted the following changes of clinical significance: no changes noted H/H 8.5/27.0. Patient notes her prep went well and she is passing liquid/watery stool. Keep NPO & proceed with colonoscopy today.
--- NOTE | 2025-06-18 13:28 | Hospitalist Progress Note ---
Date of Service June 18, 2025 Assessment & Plan (1) GI bleed: Plan: Patient is 84 year old female with PMH HTN, HLD, PAF, PVD s/p left AKA, s/p bilateral iliac artery stenting, s/p femoral to posterior tibial bypass, AAA 5 cm s/p embolization 06/2021, CAD s/p PCI stent to circumflex obtuse marginal artery in 2004, COPD presented to ER with c/o rectal bleeding with BMs x 3 days. 01/2025 admission for sepsis, proctocolitis and required 1 unit PRBC transfusion. 03/30/2023 colonoscopy: Poor bowel prep, 8 mm polyp found in cecum, diverticula sigmoid colon, internal hemorrhoids 03/30/2023 EGD: Normal examined esophagus, stomach and duodenum Acute on chronic anemia Lower GI bleed Hgb: 7.1 on admission; Was 11 on 05/30/2025 and 10 on 03/12/2025 BUN: 25, Cr: 0.9 Baseline creatinine ~0.8 CT abd/pelvis: No acute infectious or inflammatory findings are identified in the abdomen or pelvis. Cardiomegaly and severe emphysema. Aortic occlusion plugs are in place with thrombosis of a large abdominal aortic aneurysm. The aneurysm sac measures 5.7 x 6.8 cm. A right axillofemoral bypass is patent. Multiple vessel occlusions as above. This is similar to the 02/14/2025 examination. During the hospitalization, patient was admitted to telemetry floor. She was given 1 packed RBC blood. Her hemoglobin is stabilized around 7.5-8. GI was consulted for comanagement; patient to undergo colonoscopy today. Discussion was done with vascular surgery(Dr. Bolanos); recommended to hold aspirin. Will plan to continue Xarelto and continue to hold aspirin and follow- up with Dr. Bolanos. #Takotsubo cardiomyopathy #CAD Hospitalization 02/14/2025-02/24/2025 for septic shock, E. coli bacteremia, Takotsubo cardiomyopathy 02/15/2025 echo: EF: 25-30% 02/16/2025 echo: EF: 30-35% Echo from 05/2025- EF improved to 50-55%. Monitor volume status closely Continue home Lasix 40mg BID Continue atorvastatin, isosorbide, metoprolol tartrate Holding aspirin as above #Atrial fibrillation Atrial fibrillation, current rate 110 Monitor Continue metoprolol tartrate Continue Xarelto at discharge. 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 Bolanos, vascular surgery CTAP on admission: Aortic occlusion plugs are in place with thrombosis of a large abdominal aortic aneurysm. The aneurysm sac measures 5.7 x 6.8 cm. A right axillofemoral bypass is patent.. Multiple vessel occlusions. This is similar to the 02/14/2025 examination. Continuing cilostazol for now. Continue atorvastatin #COPD Evidence emphysema on prior CTs Currently without evidence of exacerbation Continue home inhaler Xopenex neb prn Supplemental oxygen as needed with goal O2 sat 88-92% #Nocturnal hypoxia Continue home 2L oxygen HS #Alcohol use Drinks 1-2 beers a day Denies history ETOH withdrawal DVT Prophylaxis SCDs for now Admit PCU DNR/DNI as per discussion with pt Follows with Dr Bermudez for routine care Please note the above document was generated using voice recognition software. It may contain grammatical, syntax or spelling errors. Any formal questions or concerns about the content, text or information contained within the body of this dictation should be directly addressed to the provider for clarification Admission and Anticipated Discharge Date Admission Date: June 15, 2025 Subjective Patient seen and examined at bedside. Comfortable; not in distress. Denies fever, chills, chest pain, shortness of breath, abdominal pain or urinary symptoms. No significant overnight events Review of Systems Review of Systems: All systems reviewed & are unremarkable except as noted in Subjective Physical Exam Physical Exam: Constitutional: WD/WN, vitals as above, NAD, sitting up in bed, pleasant, conversing easily Respiratory: normal respiratory effort, lungs clear to auscultation, no wheeze, rales, rhonchi. Normal insp/exp effort, no accessory muscle use Cardiovascular: Irregular, no murmur, no edema Vessels: no JVD or carotid bruit Chest: normal inspection of chest Abdomen: soft, non-tender, not distended Musculoskeletal: Left above-knee amputation neurologic: PERRL, EOMI, accommodation nl, no face palsy, no dysarthria CN's II- XI intact bilaterally and moves all extremities Results & Data Results & Data Vital Signs (Past 12 Hours) Vital Signs Temp Pulse Pulse Resp BP Pulse Ox O2 Del Method 06/18/25 12:30 36.7 C 71 18 96/54 L 90 Room Air 06/18/25 09:59 73 06/18/25 08:19 36.7 C 72 18 135/57 L 91 Room Air 06/18/25 02:52 36.6 C 78 20 127/54 L 98 Nasal Cannula O2 Flow Rate 06/18/25 12:30 06/18/25 09:59 06/18/25 08:19 06/18/25 02:52 2
[2025-06-18] MEDS ORDERED: PROPOFOL IV EMULSION 10 MG/ML 20 ML VIAL IV ONE (14:50)
[2025-06-18] MEDS ORDERED: LIDOCAINE 2% 2 ML VIAL/AMP(20MG/ML) INFIL ONE (14:50)
[2025-06-18] MEDS ORDERED: ONDANSETRON INJ 2 MG/ML 2 ML VIAL ONE (14:50)
[2025-06-18 14:57] VITALS: TEMP 99
[2025-06-18] MEDS: SODIUM CHLORIDE 0.9% 500 ML IV SCH (14:59)
[2025-06-18] MEDS ORDERED: ATROPINE SULFATE 0.1 MG/ML 10ML SYR IV PRN (15:12)
[2025-06-18] MEDS ORDERED: PHENYLEPHRINE 100MCG/ML 5ML SYR ONE (15:36)
--- NOTE | 2025-06-18 15:53 | GI REPORT ---
[facility] Patient: PONCHO DOLAN : 1940 Sex at : Female Age: 84 Years Procedure: Colonoscopy Date: 06/18/2025 Attending Physician: Latrell Richardson MD Referring MD: Arturo Bermudez Indications: - Evaluation of unexplained GI bleeding presenting with Hematochezia Medications: - Monitored Anesthesia Care Complications: - No immediate complications. Procedure: - Prior to the procedure, a History and Physical was performed, and patient medications, allergies and sensitivities were reviewed. The patient's tolerance of previous anesthesia was reviewed. - The risks and benefits of the procedure and the sedation options and risks were discussed with the patient. All questions were answered and informed consent was obtained. - ASA Grade Assessment: I - A normal, healthy patient. - Prior Anticoagulants: The patient has taken no anticoagulant or antiplatelet agents. - The adult colonoscope was introduced through the anus and advanced to the cecum, identified by appendiceal orifice and ileocecal valve. - The appendiceal orifice and the ileocecal valve were photographed. - The colonoscopy was performed without difficulty. - The patient tolerated the procedure well. - The quality of the bowel preparation was adequate. Findings: - The perianal and digital rectal examinations were normal. - Internal hemorrhoids were found [Method Found]. The hemorrhoids were moderate. - No other significant abnormalities were identified in a careful examination of the remainder of the colon. Impression: - Internal hemorrhoids. - No specimens collected. Recommendation: - Discharge patient to home. - Patient has a contact number available for emergencies. The signs and symptoms of potential delayed complications were discussed with the patient. Return to normal activities tomorrow. Written discharge instructions were provided to the patient. - Resume previous diet. Procedure Code(s): - 90649, Colonoscopy, flexible; diagnostic, including collection of specimen(s) by brushing or washing, when performed (separate procedure) Diagnosis Code(s): - K92.1, Melena (includes Hematochezia) - K64.8, Other hemorrhoids CPT(R) - 202 copyright [employer]. All Rights Reserved. The CPT codes, CCI edits and ICD codes generated are intended as suggestions and were generated based on input data. These codes are preliminary and upon physical chemistry teacher review may be revised to meet current compliance and payer requirements. The provider is responsible for the final determination of appropriate codes, and modifiers. Latrell Richardson MD This document has been electronically signed. Note Initiated:06/18/2025 Note Completed:06/18/2025 3:52 PM [id number]
--- NOTE | 2025-06-18 16:08 | Anesthesiology Progress Note ---
Date of Service June 18, 2025 Anesthesia Post Procedure Vital Signs Vital Signs: Temp Pulse Pulse Resp BP Pulse Ox O2 Del Method 06/18/25 15:58 115 H 16 118/68 97 Room Air 06/18/25 14:51 37.2 C 78 18 126/77 91 Room Air 06/18/25 12:30 36.7 C 71 18 96/54 L 90 Room Air 06/18/25 09:59 73 06/18/25 08:19 36.7 C 72 18 135/57 L 91 Room Air 06/18/25 02:52 36.6 C 78 20 127/54 L 98 Nasal Cannula 06/17/25 22:36 36.5 C 80 18 102/59 L 98 Nasal Cannula 06/17/25 22:30 80 06/17/25 22:23 Nasal Cannula 06/17/25 19:25 36.7 C 70 17 125/57 L 97 Nasal Cannula 06/17/25 16:43 36.8 C 62 18 111/61 96 Room Air O2 Flow Rate 06/18/25 15:58 4 06/18/25 14:51 06/18/25 12:30 06/18/25 09:59 06/18/25 08:19 06/18/25 02:52 2 06/17/25 22:36 2 06/17/25 22:30 06/17/25 22:23 2 06/17/25 19:25 2 06/17/25 16:43 Transfer of Care Handoff Completed per policy Notes Mental Status: alert / awake / arousable Patient Amnestic to Procedure: Yes Nausea / Vomiting: adequately controlled Pain: adequately controlled Airway Patency, RR, SpO2: stable & adequate BP & HR: stable & adequate Hydration State: stable & adequate Anesthetic Complications: no major complications apparent
[2025-06-18 16:15] VITALS: RESP 18
[2025-06-18 16:30] VITALS: BP 149/76; PULSE 77; O2SAT 100
--- NOTE | 2025-06-18 17:08 | Discharge Summary ---
Date of Service June 18, 2025 Admission HPI Per Admitting Provider Patient is 84 year old female with PMH HTN, HLD, PVD s/p left AKA, s/p bilateral iliac artery stenting, s/p femoral to posterior tibial bypass, AAA 5 cm s/p embolization 06/2021, CAD s/p PCI stent to circumflex obtuse marginal artery in 2004, COPD and others listed below presented to ER with c/o rectal bleeding x 3 days. Per inpatient chart review History [facility] admission in 01/30/25-05/22 for sepsis, diarrhea, proctocolitis during that course did have episodes of rectal bleeding and required 1 PRBC transfusion. Recurrent hospitalization 02/14/2025- 02/24/2025 for septic shock, E. coli bacteremia requiring ICU admission and IV pressors. Initially treated with IV antibiotics and was discharged on Bactrim, also diagnosed with Takotsubo cardiomyopathy. Patient reports had been doing well since being home until past 3 days. Reported 3 days of red blood with BMs. Reports turns toilet water red. Reports stools soft. Reports bleeding only occurs with BM's. Having one BM daily but states didn't have BM today. States some abdominal cramping upper abdomen. Feeling more fatigued past 3 days. Denies SOB, CP, dizziness, syncope. Seen in clinic today referred to ER. Denies fever/chills, diaphoresis, N/V, HOFFMAN, vision changes, neck pain, CP, SOB, orthopnea, palpitations, cough, rhinorrhea, extremity edema, rashes, urinary symptoms, melena. Admission Exam Per Admitting Provider General: no distress, thin elderly female Head: normocephalic, atraumatic Eyes: conjunctiva non-injected, anicteric ENT: normal inspection external ears, nose, mucous membranes moist Neck: supple, trachea midline Lungs: clear, no respiratory distress, no wheezing/rhonchi/rales CV: irregularly irregular, rate 110, no pretibial edema Abd: normal BS, soft, non-tender Rectal: +small smear of dried maroon stool on underwear, digital rectal exam with maroon color stool in rectal vault, +Heme positive Ext: no cyanosis, no calf tenderness, LLE: +above knee amputation Neuro: A&O x 3, no focal deficits noted, normal affect Skin: warm, dry Principal Diagnosis Acute on chronic anemia Lower GI bleed Discharge Exam Constitutional: WD/WN, vitals as above, NAD, sitting up in bed, pleasant, conversing easily Respiratory: normal respiratory effort, lungs clear to auscultation, no wheeze, rales, rhonchi. Normal insp/exp effort, no accessory muscle use Cardiovascular: Irregular, no murmur, no edema Vessels: no JVD or carotid bruit Chest: normal inspection of chest Abdomen: soft, non-tender, not distended Musculoskeletal: Left above-knee amputation neurologic: PERRL, EOMI, accommodation nl, no face palsy, no dysarthria CN's II- XI intact bilaterally and moves all extremities Discharge Data Allergies Allergy/AdvReac Type Severity Reaction Status Date / Time diphenhydramine AdvReac Intermediate heart Verified 06/18/25 14:49 racing hctz AdvReac hyponatremi Uncoded 06/18/25 14:49 a Consultations 06/15/25 15:58 ED Decision to Admit Stat 06/15/25 17:03 Consult Gastroenterology Routine Procedures Performed Operation Date: 06/18/25 17:25 Actual Procedures p Colonoscopy - Latrell Richardson MD Ordered Studies 06/15/25 13:30 CT Abd and Pelvis [CT abd pelvis IV con only] Stat Hospital Course (1) GI bleed: Patient is 84 year old female with PMH HTN, HLD, PAF, PVD s/p left AKA, s/p bilateral iliac artery stenting, s/p femoral to posterior tibial bypass, AAA 5 cm s/p embolization 06/2021, CAD s/p PCI stent to circumflex obtuse marginal artery in 2004, COPD presented to ER with c/o rectal bleeding with BMs x 3 days. 01/2025 admission for sepsis, proctocolitis and required 1 unit PRBC transfusion. 03/30/2023 colonoscopy: Poor bowel prep, 8 mm polyp found in cecum, diverticula sigmoid colon, internal hemorrhoids 03/30/2023 EGD: Normal examined esophagus, stomach and duodenum Acute on chronic anemia Lower GI bleed Hgb: 7.1 on admission; Was 11 on 05/30/2025 and 10 on 03/12/2025 BUN: 25, Cr: 0.9 Baseline creatinine ~0.8 CT abd/pelvis: No acute infectious or inflammatory findings are identified in the abdomen or pelvis. Cardiomegaly and severe emphysema. Aortic occlusion plugs are in place with thrombosis of a large abdominal aortic aneurysm. The aneurysm sac measures 5.7 x 6.8 cm. A right axillofemoral bypass is patent. Multiple vessel occlusions as above. This is similar to the 02/14/2025 examination. During the hospitalization, patient was admitted to telemetry floor. She was given 1 packed RBC blood. Her hemoglobin is stabilized around 7.5-8. GI was consulted for comanagement; patient underwent colonoscopy which didn't show evidence of bleeding . Discussion was done with vascular surgery(Dr. Bolanos); recommended to hold aspirin. Will plan to continue Xarelto and continue to hold aspirin and follow- up with Dr. Bolanos. #Takotsubo cardiomyopathy #CAD Hospitalization 02/14/2025-02/24/2025 for septic shock, E. coli bacteremia, Takotsubo cardiomyopathy 02/15/2025 echo: EF: 25-30% 02/16/2025 echo: EF: 30-35% Echo from 05/2025- EF improved to 50-55%. Monitor volume status closely Continue home Lasix 40mg BID Continue atorvastatin, isosorbide, metoprolol tartrate Holding aspirin as above #Atrial fibrillation Atrial fibrillation, current rate 110 Monitor Continue metoprolol tartrate Continue Xarelto at discharge. 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 Bolanos, vascular surgery CTAP on admission: Aortic occlusion plugs are in place with thrombosis of a large abdominal aortic aneurysm. The aneurysm sac measures 5.7 x 6.8 cm. A right axillofemoral bypass is patent.. Multiple vessel occlusions. This is similar to the 02/14/2025 examination. Continuing cilostazol for now. Continue atorvastatin #COPD Evidence emphysema on prior CTs Currently without evidence of exacerbation Continue home inhaler Xopenex neb prn Supplemental oxygen as needed with goal O2 sat 88-92% #Nocturnal hypoxia Continue home 2L oxygen HS #Alcohol use Drinks 1-2 beers a day Denies history ETOH withdrawal Please note the above document was generated using voice recognition software. It may contain grammatical, syntax or spelling errors. Any formal questions or concerns about the content, text or information contained within the body of this dictation should be directly addressed to the provider for clarification Total Time Total Time Spent Total Time Spent (In Minutes): 45 Total Time Includes: Examination of the Patient, Discharge Planning, Medication Reconciliation, Communication With Other Providers and Other Discharge Plan Discharge Items Patient Disposition: Home - Self-Care Reason For Visit: rectal bleed Discharge Diagnosis: Acute on chronic anemia Lower GI bleed Condition on Discharge: Fair Activity: Resume your previous activity Non-emergency contact: Primary Care Provider Call non-emergency contact if: you have any medication questions and your symptoms worsen Follow-up/Referrals: Arturo Bermudez MD [Primary Care Provider] - (Date & Time 06/26/2025 10:20 AM Provider: Arturo Bermudez MD [facility] ) Diet: Regular Addtl Attending Provider Instructions: You were admitted to the hospital with lower GI bleed. You were seen by GI doctor during the hospitalization and underwent colonoscopy on June 18, 2025. Echocardiogram of the heart showed improved heart function compared to your last echocardiogram. Please hold off on taking aspirin until you see Dr. Bolanos. Restart taking Xarelto from tomorrow. Pending Studies at Discharge: No Stand-Alone Forms: [email or web address], Smoking Cessation Medications and DC Order Prescriptions: Continued calcium carbonate [Calcium 600] 600 mg calcium (1,500 mg) tablet 600 mg PO DAILY cilostazol 100 mg tablet 100 mg PO BID nitroglycerin [Nitrostat] 0.4 mg tablet, sublingual 0.4 mg Sublingual Q5M PRN (Reason: Chest Pain) Qty: 20 5RF Patient Comments: 06/14- Not on faxed list unable to verify multivitamin Tablet 1 tab PO QAM atorvastatin [Lipitor] 40 mg Tablet 40 mg PO QPM furosemide [Lasix] 40 mg tablet 40 mg PO BID Hold Instructions: Resume on 02/26/25. Xarelto 20 mg tablet 20 mg PO HS Qty: 0 0RF omega 4-bto-mhh-fish oil [Fish Oil] 300-1,000 mg Capsule 1 cap PO QAM isosorbide mononitrate 30 mg Tablet Extended Release 24 Hr 30 mg PO QAM Qty: 30 1RF ferrous sulfate 325 mg (65 mg iron) tablet,delayed release (DR/EC) 325 mg PO DAILY Trelegy Ellipta 100-62.5-25 mcg blister with device 1 inh inhalation DAILY metoprolol tartrate 50 mg tablet 50 mg PO BID potassium chloride 20 mEq tablet extended release 20 meq PO BID Held aspirin 81 mg tablet,delayed release (DR/EC) 81 mg PO QAM Qty: 0 0RF Hold Instructions: Resume on 06/28/25. Hold until seen by Dr. Bolanos Discharge Orders: Discharge Order (Routine); Ordered 06/18/25 Ordered By: Dexter Lewis Admission Data Admit Date/Time: 06/15/25 18:36 Attending Provider: Dexter Lewis Admit Provider: Tramaine Greer Primary Care Provider: Arturo Bermudez Other Providers: Tramaine Greer; Latrell Richardson I
--- NOTE | 2025-06-19 11:57 | Coding Query ---
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 Please assist us with the question(s) below: Coding Question(s): The record reflects the following clinical findings: Pt admitted with lower GI bleed; one Unit Packed Cells transfused. D/S stated acute on chronic anemia. thanks for your help! Jet Cota, [employer] If these findings are indicative of anemia, please specify the known or suspected type by placing an "X" within the parenthesis (x). If other, please document type. Examples are: (X ) Acute blood loss anemia ( ) Acute Postoperative blood loss anemia ( ) Acute postoperative anemia due to dilutional fluids ( ) Chronic blood loss anemia ( ) Anemia of chronic disease ( ) Aplastic anemia ( ) Anemia due to renal disease ( ) Anemia in neoplastic disease ( ) Iron deficient anemia ( ) Anemia, unspecified or other ( ) Other: (please specify) MTDD
== END 2025-06-18 18:23 | disposition home or self-care (01) | DRG 378 ==
LOC: ED 13:05 → 4W 18:36 → SUATTDRO 18:36 → 4W 19:05